=== PATIENT | male | born 1930 | race Caucasian/White ===

== ENCOUNTER 2016-07-12 03:41 | Inpatient (IN) | payer MEDICARE, OTHER ==
[2016-07-12] VITALS (8 sets, daily range): BP systolic 107–134; BP diastolic 55–79; PULSE 70–78; TEMP 36.5–37.1; O2SAT 93–98; BMI 40.7
[~2016-07-12] VITALS: Ht 162.6 cm; Wt 99.5 kg
[2016-07-12] MEDS ORDERED: ASPEC81 PO (03:59)
[2016-07-12] MEDS ORDERED: ALUMINUM/MAGNESIUM/SIMETH (MAALOX MAX) 30 ML UDC PO PRN (04:00)
[2016-07-12] MEDS ORDERED: ONDANSETRON INJ 2 MG/ML 2 ML VIAL IV PRN (04:00)
[2016-07-12] MEDS ORDERED: POLYETHYLENE (MIRALAX) 17 GM PACK PO PRN (04:00)
[2016-07-12] MEDS ORDERED: NITROGLYCERIN 0.4 MG SL PER TAB CHARGE SL PRN (04:00)
[2016-07-12] MEDS ORDERED: SITA50TA3 PO (04:04)
[2016-07-12] MEDS ORDERED: HYDR-4715 PO (04:04)
[2016-07-12] MEDS ORDERED: ALLO300T2 PO (04:04)
[2016-07-12] MEDS ORDERED: FURO-85 PO (04:04)
[2016-07-12] MEDS ORDERED: ERGO1TAB12 PO (04:04)
[2016-07-12] MEDS ORDERED: CLOP1TAB15 PO (04:04)
[2016-07-12] MEDS ORDERED: GLIP10TA9 PO (04:04)
[2016-07-12] MEDS ORDERED: DOCU-94 PO (04:04)
[2016-07-12] MEDS ORDERED: FINA5TAB PO (04:04)
[2016-07-12] MEDS ORDERED: HMLI7525 SC (04:04)
[2016-07-12] MEDS: PATIENT'S HEIGHT AND/OR WEIGHT NEEDED SCH ×4 (04:15→05:45)
[2016-07-12] MEDS: NITROGLYCERIN OINT 2% 1GM PACKET EXT SCH ×4 (04:15→19:40)
--- NOTE | 2016-07-12 04:35 | History and Physical ---
History & Physical Date & Time of Service: Jul 12, 2016 at 04:26 Chief Complaint: Chf Exacerbation, Pleural Effusion On Left Primary Care Physician: Daniel Lima M.D. History of Present Illness Source: patient Mr Brasher is an 85 yo M with history of hypertension, CAD s/p cardiac stents, CKD stage IV, hyperlipidemia, and COPD who presents via [facility] with a 3 day history of shortness of breath and fluid retention. He reports he was recently admitted to the hospital with a left leg cellulitis, which turned out to be gout, and was eventually sent to a rehab hospital after that. He was then discharged 4 days ago home, and lives with his mask former Jennifer. He apparently had a salty diet while at this hospital which he believes contributed to the swelling. He reports that Jennifer noticed his leg swelling worsened,. and he felt he was more short of breath, and his weights were fluctuating according to his scale at home. He usually weighs around 225lbs (102kg). (Currently 107.5 kg). He was transferred to [facility] due to lack of beds at [facility]. At [facility] he received 80mg IV Lasix at 20:34 then 100mg IV Lasix at 23:20 (he takes 120mg PO daily per day). His labs at [facility] showed a WBC of 13.3, Hb 11.2, Glucose 170, Na 130, K 4.0, BUN 84, Cr 2.33 AST 56, ALT 72, gfr 27, INR 1.35 Troponin 0.06. He had a CXR which showed cardiomegaly with diffuse vascular congestion and suspected small left pleural effusion. He reports he sees Dr Nice for Nephrology and Dr Hess for Cardiology. He reports he does NOT want dialysis at all. Past Medical/Surgical History Medical Problems: (1) Cellulitis of left leg (2) CHF (congestive heart failure) (3) CHF exacerbation (4) CKD (chronic kidney disease) (5) COPD (chronic obstructive pulmonary disease) (6) Hyperlipidemia (7) Hypertension (8) Nasal bone fracture (9) Pleural effusion on left (10) STEMI (ST elevation myocardial infarction) Surgical Problems: (1) Hx of heart artery stent (2) Hx of heart surgery (3) Hx of tonsillectomy Family History Irrelevant due to pt age Social History Smoking Status: Former Smoker Alcohol Use: none Marital Status: other (Was for 60+ years, in February ) Housing status: other (lives with Jennifer (Claim Inspector)) Multi-Drug Resistant Organisms History of MDRO: No Allergies Coded Allergies: Amoxicillin (Verified Adverse Reaction, Unknown, NIGHTMARES, 07/12/16) Home Medications Scheduled Allopurinol (Zyloprim), 1 TAB PO DAILY Aspirin (Aspirin EC Low Dose), 81 MG PO DAILY Clopidogrel (Plavix), 75 MG PO DAILY Docusate Sodium (Colace), 1 CAP PO BID Ergocalciferol (Vitamin D2), 50,000 UNITS PO weekly Finasteride (Proscar), 1 TAB PO DAILY Furosemide (Lasix), 3 TAB PO BID Glipizide (Glucotrol), 1 TAB PO BID Hydralazine Hcl (Apresoline), 1 TAB PO TID Insulin Lispro 75/25 (Humalog Mix 75/25), 0 SC BID Isosorbide Mononitrate Ext Rel (Imdur Ext Rel), 120 MG PO QAM Sitagliptin (Januvia), 50 MG PO DAILY Physical Exam General Appearance: WD/WN, no apparent distress Head: normocephalic, atraumatic Eyes: normal inspection ENT: hearing grossly normal Neck: supple, no JVD Respiratory/Chest: chest non-tender, + crackles (bibasilar) Cardiovascular: regular rate, rhythm, no murmur, normal peripheral pulses Abdomen/GI: normal bowel sounds, non tender, soft, + distended Back: no CVA tenderness, no muscle spasm Extremities/Musculoskelatal: no calf tenderness, + pedal edema (bilateral) Neurologic/Psych: alert, normal mood/affect, oriented x 3 Skin: no rash Diagnostics Laboratory Results Results Past 24 Hours Test 07/12/16 04:06 Range/Units Creatine Kinase MB Ratio 0-3.0 Microbiology Results 07/12/16 MRSA DNA Surveillance Screen, Marylou Batch Pending Diagnostic Radiology CXR - per outside record - Cardiomegaly, L pleural effusion EKG Tele: HR 68, frequent PVCs EKG: NSR with PVCs, 71bpm. No ST elevation Impression Assessment and Plan Documented By: Kelvin Fine 85 yo M with CHF, T2DM, CKD - presents with CHF exacerbation CHF exacerbation - will repeat CXR in AM and determine further need for Lasix. Strict I&Os - has Adams already. Salt restricted diet. CKD - Will await further Lasix as above. Trend BMPs T2DM - Hold Metformin, Glipizide, Januvia. BSG AC and HS Hypertension - Hold Imdur for now (relatively hypotensive) Gout - continue allopurinol CAD - Continue aspirin and plavix CODE STATUS: DNR (Has an advance directive) Dispo: Tele VTE: Heparin Resident Physician Supervision Note: I was present with [Name of resident] during the history and exam. I discussed the case with the resident and agree with the findings and plan as documented in the note. Any exceptions or clarifications are listed here Pt seen / examined personally O/E AAOx3 S1,2 reg Crackles at bases NT, NT, BS+ +Edema , no C/C Plan - CHF will cont diuresis with Lasix and we will recheck renal function AM - Pt has stated he does not want dialysis if needed and he cannot be diuresed without further renal impairment - will hold off on nephrology consult. DM - SS CKD - as above CAD - Plavix, Imdur Gout - Hold allopurinol until renal function stable - can start low dose prednisone if needed Level of Care Telemetry Resuscitation Status DO NOT RESUSCITATE VTE Prophylaxis VTE Risk Assessment Done? Y/N: Yes Risk Level: Moderate Resident Tracking Resident Involvement: Resident Care Provided Care Provided: Adult Hospital Medicine
[2016-07-12] MEDS ORDERED: ISOS120T5 PO (04:36)
[2016-07-12 05:32] LABS: BASO % 1.4 %; BASO ABS # 0.14 K/uL (0-0.2); COMPLETE YES; HEMATOCRIT 35.2 % (42-52); IG% 0.5 %; LYMPH ABS # 1.32 K/uL (1.2-3.4); MEAN CELL VOLUME 91.9 fL (80-100); MEAN CORPUSCULAR HEMOGLOBIN 29.5 pg (25-34); MEAN CORPUSCULAR HGB CONC 32.1 g/dl (32-36); MEAN PLATELET VOLUME 10.3 fL (7.4-10.4); MONO % 16.2 %; NEUT % 65.9 %; PLATELET COUNT 243 K/uL (130-400); RED BLOOD COUNT 3.83 M/uL (4.7-6.1); WHITE BLOOD COUNT 10.17 K/uL (4.8-10.8)
[2016-07-12 05:44] LABS: INR 1.1 (0.9-1.1); PROTHROMBIN TIME (PATIENT) 12.2 SECONDS (9.0-12.0)
[2016-07-12 05:51] LABS: BUN/CREATININE RATIO 37.2 (10-20); CALCIUM 8.5 mg/dl (8.5-10.1); CREATININE 2.3 mg/dl (0.60-1.40); POTASSIUM 3.7 mmol/L (3.5-5.1)
[2016-07-12 05:54] LABS: ALB/GLOB RATIO 0.7 (0.9-2); CKMB/CK RATIO 2.3 (0-3.0)
[2016-07-12] MEDS: HEPARIN SOD 5000 UNIT/0.5 ML CARP SQ SCH ×3 (06:35→14:49)
[2016-07-12] MEDS ORDERED: PERFLUTREN LIPID MICROSPHERE (DEFINITY) IV ONE (07:16)
[2016-07-12] MEDS ORDERED: GLUCAGON FOR INJ 1 MG VIAL SQ PRN (08:45)
[2016-07-12] MEDS ORDERED: GLUCOSE 10 TABS/TUBE PO PRN (08:45)
[2016-07-12] MEDS ORDERED: GLUCOSE 40% GEL 15 GM TUBE PO PRN (08:45)
[2016-07-12] MEDS ORDERED: DEXTROSE 50% 50 ML SYR IV PRN (08:45)
[2016-07-12] MEDS ORDERED: ALLOPURINOL 300 MG TAB PO SCH (09:00)
[2016-07-12] MEDS ORDERED: ENOXAPARIN 30 MG/0.3 ML SYR SC SCH (09:00)
[2016-07-12] MEDS: DOCUSATE SODIUM 100 MG CAP PO SCH ×2 (09:03→21:00)
[2016-07-12] MEDS: FINASTERIDE 5 MG TAB PO SCH (09:03)
[2016-07-12] MEDS: CLOPIDOGREL BISULFATE 75 MG TAB PO SCH (09:04)
[2016-07-12] MEDS: HydrALAZINE 10 MG TAB PO SCH ×3 (09:04→21:38)
[2016-07-12] MEDS: ASPIRIN 81 MG ECTAB PO SCH (09:04)
--- NOTE | 2016-07-12 09:08 | Hospitalist Progress Note ---
Hospitalist Progress Note Date of Service Jul 12, 2016. Subjective Pt evaluation today including: conversation w/ patient, physical exam Voiding: lujan catheter in place Objective Vital Signs Date Time Temp Pulse Resp B/P Pulse Ox O2 Delivery O2 Flow Rate FiO2 07/12/16 04:26 36.5 70 26 110/55 98 Nasal Cannula 3.0 Laboratory Results Last 24 Hours Test 07/12/16 05:21 07/12/16 05:22 07/12/16 06:45 White Blood Count 10.17 K/uL Red Blood Count 3.83 M/uL Hemoglobin 11.3 g/dL Hematocrit 35.2 % Mean Corpuscular Volume 91.9 fL Mean Corpuscular Hemoglobin 29.5 pg Mean Corpuscular Hemoglobin Concent 32.1 g/dl Platelet Count 243 K/uL Mean Platelet Volume 10.3 fL Neutrophils (%) (Auto) 65.9 % Lymphocytes (%) (Auto) 13.0 % Monocytes (%) (Auto) 16.2 % Eosinophils (%) (Auto) 3.0 % Basophils (%) (Auto) 1.4 % Neutrophils # (Auto) 6.70 K/uL Lymphocytes # (Auto) 1.32 K/uL Monocytes # (Auto) 1.65 K/uL Eosinophils # (Auto) 0.31 K/uL Basophils # (Auto) 0.14 K/uL RDW Standard Deviation 53.1 fL RDW Coefficient of Variation 16.1 % Immature Granulocyte % (Auto) 0.5 % Immature Granulocyte # (Auto) 0.05 K/uL Prothrombin Time 12.2 SECONDS Prothromb Time International Ratio 1.1 Sodium Level 133 mmol/L Potassium Level 3.7 mmol/L Chloride Level 91 mmol/L Carbon Dioxide Level 31 mmol/L Anion Gap 11.0 mmol/L Blood Urea Nitrogen 86 mg/dl Creatinine 2.30 mg/dl Est Creatinine Clear Calc Drug Dose 25.1 ml/min Estimated GFR () 28.5 Estimated GFR (Non- 24.6 BUN/Creatinine Ratio 37.2 Random Glucose 128 mg/dl Calcium Level 8.5 mg/dl Total Bilirubin 1.0 mg/dl Aspartate Amino Transf (AST/SGOT) 48 U/L Alanine Aminotransferase (ALT/SGPT) 79 U/L Alkaline Phosphatase 157 U/L Total Creatine Kinase 96 U/L Creatine Kinase MB 2.2 ng/ml Creatine Kinase MB Ratio 2.3 Troponin I 0.039 ng/ml Total Protein 7.6 gm/dl Albumin 3.0 gm/dl Globulin 4.6 gm/dl Albumin/Globulin Ratio 0.7 Bedside Glucose 144 mg/dl Assessment and Plan (1) CHF exacerbation Assessment & Plan: 1. Start Lasix 60mg IV BID 2. Check CXR 3. Check TTE (2) Pleural effusion on left Assessment & Plan: 1. Check CXR 2. Lasix (3) COPD (chronic obstructive pulmonary disease) Assessment & Plan: Stable, not in exacerbation (4) Hypertension Assessment & Plan: 1. BP controlled, actually soft 2. Continue to hold nitrate (5) CKD (chronic kidney disease) Assessment & Plan: Consult his wood fence erector, Dr. Nice, for guidance while diuresing. Cr was 1.8 in 05/2016. (6) DM2 (diabetes mellitus, type 2) Assessment & Plan: Start sliding scale coverage (7) Physical deconditioning Assessment & Plan: PT/OT 1. Follow BMPs closely 2. Consider Nephro consult if worsening Continued [facility] stay due to: multiple IV medications needed
--- NOTE | 2016-07-12 09:17 | DIAGNOSTIC IMAGING REPORT ---
CHEST ONE VIEW PORTABLE CLINICAL HISTORY: Congestive heart failure. Pleural effusion. COMPARISON STUDY: No previous studies for comparison. FINDINGS: There are median sternotomy wires and clips from bypass grafting. There is no pneumothorax. There is moderate enlargement of the cardiac silhouette. Diffuse interstitial thickening is noted. There is a small left pleural effusion. There may be a trace right pleural effusion. There are hazy bibasilar opacities. IMPRESSION: 1. Diffuse interstitial thickening suggestive of pulmonary edema. 2. Hazy bibasilar opacities which may reflect atelectasis or less likely pneumonia. Radiographic follow up is recommended. 3. Suspected small bilateral pleural effusions. Electronically signed by: Cristian Mckeon M.D. 07/12/2016 9:14 AM Dictated Date/Time: 07/12/2016 9:13 AM
[2016-07-12] MEDS ORDERED: PHARMACY GLYCEMIC MGMT CONSULT PRN (09:29)
[2016-07-12] MEDS: FUROSEMIDE INJ 60 MG in SYRINGE 0 ML IV SCH ×2 (09:35→21:00)
--- NOTE | 2016-07-12 09:40 | Clinical Documentation Query ---
CLINICAL DOCUMENTATION QUERY Dr. CLAUDIO, In your clinical opinion is this patient being managed for: (once ECHO results are available) ( ) Acute on chronic diastolic CHF ( ) Acute on chronic systolic CHF (x ) Acute on chronic combined systolic and diastolic CHF ( ) Other explanation of clinical findings (Please Explain) ( ) Unable to determine (Please Define) ( ) Need to Discuss ( ) Not Agree The medical record reflects the following clinical findings, treatment, and risk factors. Clinical Indicators:85 yo male transferred to [facility] for dyspnea and fluid retention. [place] CXR showed diffuse vascular congestion and suspected small L pleural effusion. BNP 1260 Treatment: IV lasix, tele monitoring, O2 support, AHA/2gm Na diet, I/O, ECHO results are pending Risk Factors: age, HTN, CKD, CAD, COPD Please clarify and document your clinical opinion in the progress notes and discharge summary. Terms such as "probable", "suspected", "likely", "questionable", "possible", or "still to be ruled out" are acceptable. IF IN AGREEMENT, YOU MUST DOCUMENT ABOVE DIAGNOSTIC STATEMENT IN DAILY PROGRESS NOTES AND DISCHARGE SUMMARY. This document is not part of the patient's record. Thank You, Dahlia Paige, RN [phone]
[2016-07-12] MEDS: NYSTATIN POWDER 15GM BTL EXT SCH (10:03)
[2016-07-12 10:28] LABS: ACT87 HEP C IGG SCREEN** NEG (NEG)
--- NOTE | 2016-07-12 10:46 | ECHOCARDIOGRAM REPORT ---
*NOTICE TO RECEIVING CONSTITUTION PARTY AGENCY This information is strictly Confidential and protected under [place] law. [place] law prohibits you from making any further disclosure of this information unless further disclosure is expressly permitted by the written consent of the person to whom it pertains or is authorized by law. A general authorization for the release of medical or other information is not sufficient for this purpose. Hospital accepts no responsibility if the information is made available to any other person, INCLUDING THE PATIENT. Interpretation Summary * Name: BECKA SINGH Study Date: 07/12/2016 06:48 AM BP: 110/55 mmHg * Patient Location: .MSICU\S\E107\S\1 HR: 70 * : 1930 (M/d/y) Gender: Male Height: 64 in * Age: 85 yrs Ethnicity: [place] Weight: 237 lb * Ordering Physician: Louisa Carrillo * Performed By: Olivia Griffin RDCS * * Reason For Study: Congestive Heart Failure * BSA: 2.1 m2 * The study was technically adequate. * There is no comparison study available. * -- Conclusions -- * Left ventricular systolic function is mildly reduced. * Ejection Fraction = 40-45%. * There is a moderate to large sized posterior, inferior, and lateral wall motion abnormality with severe hypokinesis to akinesis of the segments. * The aortic valve is severely calcified. * Doppler and 2D imaging of the aortic valve are discordant. Moderate aortic stenosis is present. * Moderate aortic regurgitation. * There is mild mitral regurgitation. * There is mild to moderate tricuspid regurgitation. Procedure Details * A complete two-dimensional transthoracic echocardiogram was performed (2D, M-mode, Doppler and color flow Doppler). * The study was technically difficult. * A contrast injection of Definity was performed to improve assessment of LV function. * Contrast was injected into an intravenous site in the right arm. * One vial of Definity ultrasound contrast was diluted in normal saline to a total volume of 10 ml. A total of '2' ml of solution was administered during imaging. * Lot # [id number] of Definity utilized for procedure. * Expiration date 1JUN. * The attending nurse who injected the contrast agent was Nini Rubio RN. Left Ventricle * The left ventricle is normal in size. * There is no thrombus. * Ejection Fraction = 40-45%. * Left ventricular systolic function is mildly reduced. * There is a moderate to large sized posterior, inferior, and lateral wall motion abnormality with severe hypokinesis to akinesis of the segments. Right Ventricle * The right ventricle is normal size. * The right ventricular systolic function is normal as assessed by tricuspid annular plane systolic excursion (TAPSE) (normal >1.5 cm). Atria * The left atrium is mildly dilated. * Right atrial size is normal. * There is no evidence of atrial septal defect, but resolution does not allow assessment for a patent foramen ovale. Mitral Valve * Calcified mitral apparatus. * There is moderate to severe mitral annular calcification. * There is no mitral valve stenosis. * There is mild mitral regurgitation. Tricuspid Valve * The tricuspid valve is not well visualized. * There is no tricuspid stenosis. * There is mild to moderate tricuspid regurgitation. * The estimated systolic PAP is 59mmHg. Aortic Valve * The aortic valve is trileaflet. * The aortic valve is severely calcified. * Doppler and 2D imaging of the aortic valve are discordant. Moderate aortic stenosis is present. * Moderate aortic regurgitation. Pulmonic Valve * The pulmonary valve is not well seen, but the Doppler examination is normal without significant regurgitation or stenosis. Great Vessels * The aortic root and proximal ascending aorta are normal sized. Pericardium/Pleural * There is no pericardial effusion. Great Vessels * Dialted IVC with normal inspiratory collapse suggesting a right atrial pressure of 8mmHg. Left Ventricular Diastolic Function * Diastolic dysfunction, Grade II, consistent with elevated left atrial pressure. MMode 2D Measurements and Calculations IVSd 0.96 cm IVSs 1.4 cm LVIDd 6.2 cm LVIDs 5.6 cm LVPWd 1.1 cm LVPWs 1.6 cm IVS/LVPW 0.91 FS 10.7 % EDV(Teich) 196.0 ml ESV(Teich) 151.4 ml EF(Teich) 22.8 % EDV(cubed) 241.6 ml ESV(cubed) 172.2 ml EF(cubed) 28.7 % % IVS thick 40.2 % % LVPW thick 46.9 % LV mass(C)d 267.7 grams LV mass(C)dI 127.3 grams/m\S\2 LV mass(C)s 364.3 grams LV mass(C)sI 173.3 grams/m\S\2 SV(Teich) 44.6 ml SI(Teich) 21.2 ml/m\S\2 SV(cubed) 69.4 ml SI(cubed) 33.0 ml/m\S\2 EPSS 2.2 cm Ao root diam 3.3 cm Ao root area 8.6 cm\S\2 ACS 1.2 cm LA dimension 4.3 cm LA/Ao 1.3 LVOT diam 2.1 cm LVOT area 3.5 cm\S\2 LVAd ap4 30.1 cm\S\2 LVLd ap4 7.9 cm EDV(MOD-sp4) 103.9 ml EDV(sp4-el) 97.2 ml LVAs ap4 20.9 cm\S\2 LVLs ap4 6.5 cm ESV(MOD-sp4) 60.5 ml ESV(sp4-el) 57.1 ml EF(MOD-sp4) 41.8 % EF(sp4-el) 41.2 % SV(MOD-sp4) 43.4 ml SI(MOD-sp4) 20.6 ml/m\S\2 SV(sp4-el) 40.1 ml SI(sp4-el) 19.1 ml/m\S\2 Doppler Measurements and Calculations MV E max isidoro 143.8 cm/sec MV A max isidoro 91.8 cm/sec MV E/A 1.6 MV V2 max 140.3 cm/sec MV max PG 7.9 mmHg MV V2 mean 66.0 cm/sec MV mean PG 2.1 mmHg MV V2 VTI 68.5 cm MVA(VTI) 1.0 cm\S\2 MV P1/2t max isidoro 141.8 cm/sec MV P1/2t 117.1 msec MVA(P1/2t) 1.9 cm\S\2 MV dec slope 354.7 cm/sec\S\2 MV dec time 0.22 sec Ao V2 max 269.5 cm/sec Ao max PG 29.1 mmHg Ao max PG (full) 26.0 mmHg Ao V2 mean 195.9 cm/sec Ao mean PG 17.0 mmHg Ao mean PG (full) 15.5 mmHg Ao V2 VTI 67.2 cm JOSS(I,A) 1.0 cm\S\2 JOSS(I,D) 1.0 cm\S\2 JOSS(V,A) 1.2 cm\S\2 JOSS(V,D) 1.2 cm\S\2 AI max isidoro 326.9 cm/sec AI max PG 43.4 mmHg AI dec slope 280.1 cm/sec\S\2 AI P1/2t 341.9 msec LV V1 max PG 3.2 mmHg LV V1 mean PG 1.5 mmHg LV V1 max 88.8 cm/sec LV V1 mean 57.6 cm/sec LV V1 VTI 19.7 cm SV(Ao) 578.0 ml SI(Ao) 275.0 ml/m\S\2 SV(LVOT) 68.8 ml SI(LVOT) 32.7 ml/m\S\2 PA V2 max 95.0 cm/sec PA max PG 3.6 mmHg PI max isidoro 149.6 cm/sec PI max PG 9.0 mmHg PI dec slope 78.5 cm/sec\S\2 PI P1/2t 558.5 msec TR max isidoro 340.3 cm/sec
[2016-07-12] MEDS: INSULIN ASPART 100 UNITS/ML 3 ML PEN SC SCH ×3 (13:46→21:40)
[2016-07-12 13:53] LABS: BUN/CREATININE RATIO 36.3 (10-20); CALCIUM 9.2 mg/dl (8.5-10.1); CREATININE 2.3 mg/dl (0.60-1.40); MAGNESIUM 2.9 mg/dl (1.8-2.4); PHOSPHORUS 3.4 mg/dl (2.5-4.9); POTASSIUM 3.5 mmol/L (3.5-5.1)
--- NOTE | 2016-07-12 13:54 | Pharmacy Progress Note ---
Glycemic Control: Progress Nt Date of Service Jul 12, 2016. Scope Glycemic Pharmacist consulted by Dr Evelina Velazquez on 07/12/16 for glycemic control and to write orders per [facility] inpatient glycemic control protocol. Objective Accuchecks BSG (last 24hrs): Test 07/12/16 05:21 07/12/16 06:45 07/12/16 11:07 07/12/16 13:25 Random Glucose 128 mg/dl (70-99) Bedside Glucose 144 mg/dl (70-99) 208 mg/dl (70-99) Laboratory Data (last 24hrs) Test 07/12/16 05:21 07/12/16 13:25 Anion Gap 11.0 mmol/L BUN/Creatinine Ratio 37.2 Blood Urea Nitrogen 86 mg/dl Creatinine 2.30 mg/dl Potassium Level 3.7 mmol/L Sodium Level 133 mmol/L White Blood Count 10.17 K/uL Red Blood Count 3.83 M/uL Hemoglobin 11.3 g/dL Hematocrit 35.2 % Mean Corpuscular Volume 91.9 fL Mean Corpuscular Hemoglobin 29.5 pg Mean Corpuscular Hemoglobin Concent 32.1 g/dl Platelet Count 243 K/uL Mean Platelet Volume 10.3 fL Neutrophils (%) (Auto) 65.9 % Lymphocytes (%) (Auto) 13.0 % Monocytes (%) (Auto) 16.2 % Eosinophils (%) (Auto) 3.0 % Basophils (%) (Auto) 1.4 % Neutrophils # (Auto) 6.70 K/uL Lymphocytes # (Auto) 1.32 K/uL Monocytes # (Auto) 1.65 K/uL Eosinophils # (Auto) 0.31 K/uL Basophils # (Auto) 0.14 K/uL Recent Pertinent Medications Outpatient Anti-diabetic Regimen: * Outpatient regimen is unclear; our current list includes: Glipizide 10mg PO BID, Januvia 50mg daily; Humalog 75/25 unknown dosage * A family member will be bringing an updated list later today * A1c = ? The patient is currently receiving: * Basal insulin: None * Correctional Insulin: Novolog Correction per scale ACHS Goal Range: Low 120 mg/dL - High 150 mg/dL Correction Factor: 20 mg/dL/unit * Prandial insulin: Per carb ratio of 1 unit per 7 grams CHO consumed * Oral Agents: None currently Risk Factors for Insulin Resistance: * Diet: ordered T2DM/AHA/Renal/Low Na+ diet; he did consume ~25% of breakfast and lunch today Assessment & Plan ASSESSMENT: * Type 2 diabetic admitted with ADHF * Level of glycemic control prior to admission unknown - will check A1c tomorrow * Fasting BSG 128-144 this AM with no basal insulin on board, however if he was taking glipizide [employer] this may have kept this value down * Will refrain from ordering basal insulin today; however will follow fasting BSG trend * Current Novolog dosing parameters are reasonable starting points based upon weight PLAN FOR INPATIENT GLYCEMIC CONTROL: * Check A1c with AM labs * Avoid use of oral hypoglycemic meds at this time * No basal insulin at this time * Continuing correction factor of 20 mg/dl/unit * Continuing carb ratio of 1 unit per 7 grams CHO consumed * Continuing goal range of Low 120 mg/dL - High 150 mg/dL * Please note that the plan above was derived based on current level of insulin resistance and hospital stress. These recommendations are appropriate for inpatient admission only. Plan of care upon discharge will need to be reassessed to avoid potential outpatient hypo/hyperglycemia. Thank you.
[2016-07-12] MEDS ORDERED: NURSING VERBAL MED ORDER ONE (15:00)
[2016-07-12] MEDS ORDERED: BOOST GLUCOSE CONTROL PO SCH (16:30)
[2016-07-12] MEDS: ACETAMINOPHEN 325 MG TAB PO PRN (19:50)
[2016-07-12] MEDS ORDERED: FUROSEMIDE 40 MG/4 ML VIAL ONE ×2 (21:29→21:30)
[2016-07-12] MEDS ORDERED: ZOLPIDEM TARTRATE 5 MG TAB PO PRN (21:45)
[2016-07-13] VITALS (8 sets, daily range): BP systolic 116–148; BP diastolic 65–79; PULSE 77–93; TEMP 36.3–36.8; O2SAT 91–99
[2016-07-13] MEDS: NITROGLYCERIN OINT 2% 1GM PACKET EXT SCH ×5 (00:42→23:41)
[2016-07-13 06:49] LABS: BUN/CREATININE RATIO 36.6 (10-20); CALCIUM 8.7 mg/dl (8.5-10.1); POTASSIUM 3.4 mmol/L (3.5-5.1)
[2016-07-13 07:15] LABS: ESTIMATED AVERAGE GLUCOSE 171 mg/dl; HA1C FLAG Normal (Normal)
--- NOTE | 2016-07-13 08:16 | Hospitalist Progress Note ---
Hospitalist Progress Note Date of Service Jul 13, 2016. Subjective Pt evaluation today including: conversation w/ patient, physical exam Had some hematuria yesterday. He has no new complaints. Says his breathing is better, "but still not as good as it could be." Medications Medications (Trade) Dose Ordered Sig/Vijay Route Start Time Stop Time Status Last Admin Dose Admin Aspirin (Ecotrin Tab) 81 mg DAILY PO 07/12/16 09:00 08/11/16 08:59 07/12/16 09:04 81 MG Clopidogrel Bisulfate (plAVix TAB) 75 mg DAILY PO 07/12/16 09:00 08/11/16 08:59 07/12/16 09:04 75 MG Docusate Sodium (coLACE CAP) 100 mg BID PO 07/12/16 09:00 08/11/16 08:59 07/12/16 09:03 100 MG Finasteride (Proscar Tab) 5 mg DAILY PO 07/12/16 09:00 08/11/16 08:59 07/12/16 09:03 5 MG Hydralazine HCl 10 mg 10 mg TID PO 07/12/16 09:00 08/11/16 08:59 07/12/16 21:38 10 MG Furosemide/Syringe (Lasix Inj/ Syringe) 6 ml @ 4 mls/min BID IV 07/12/16 09:00 08/11/16 08:59 07/12/16 09:35 4 MLS/MIN Insulin Aspart (novoLOG ASPART) SLIDING SCALE If C... ACHS SC 07/12/16 11:00 08/11/16 10:59 07/12/16 21:40 2 UNITS Nystatin (Mycostatin Powder) 1 appln DAILY EXT 07/13/16 09:00 08/12/16 08:59 07/12/16 10:03 1 APPLN Enteral Nutritional Formula (Boost Glucose Control) 0.5 can TIDM PO 07/12/16 16:30 07/13/16 07:02 DC 07/12/16 16:46 0.5 CAN Furosemide (Lasix Inj) 40 mg STK-MED ONCE .ROUTE 07/12/16 21:29 07/12/16 21:31 DC 07/12/16 21:29 20 MG Furosemide (Lasix Inj) 40 mg STK-MED ONCE .ROUTE 07/12/16 21:30 07/12/16 21:32 DC 07/12/16 21:30 40 MG Objective Vital Signs Date Time Temp Pulse Resp B/P Pulse Ox O2 Delivery O2 Flow Rate FiO2 07/13/16 04:00 93 Nasal Cannula 3.0 07/13/16 04:00 36.8 81 24 118/65 93 Nasal Cannula 4.0 07/12/16 23:59 93 Nasal Cannula 3.0 07/12/16 23:59 37.1 78 24 127/71 93 Nasal Cannula 3.0 07/12/16 20:00 CPAP 07/12/16 20:00 37.1 75 24 107/59 95 Nasal Cannula 3.0 07/12/16 17:30 36.9 77 24 132/72 94 Nasal Cannula 3.0 07/12/16 15:02 94 Nasal Cannula 3.0 07/12/16 15:02 36.7 75 24 134/79 94 Nasal Cannula 3.0 07/12/16 11:49 36.7 76 23 134/79 93 Nasal Cannula 3.0 07/12/16 11:08 95 Nasal Cannula 3.0 07/12/16 08:00 36.6 75 21 111/63 98 Nasal Cannula 4.0 07/12/16 08:00 98 Nasal Cannula 4.0 Physical Exam General Appearance: no apparent distress Eyes: sclerae normal Respiratory/Chest: + crackles, + pertinent finding (becomes visibily dyspneic with speaking a few sentences) Cardiovascular: regular rate, rhythm Abdomen: non tender, soft Extremities: + pedal edema Neurologic/Psychiatric: alert, oriented x 3 Skin: normal color, warm/dry Laboratory Results Last 24 Hours Test 07/12/16 11:07 07/12/16 13:25 07/12/16 16:13 07/12/16 20:23 Bedside Glucose 208 mg/dl 200 mg/dl 179 mg/dl Sodium Level 131 mmol/L Potassium Level 3.5 mmol/L Chloride Level 90 mmol/L Carbon Dioxide Level 30 mmol/L Anion Gap 11.0 mmol/L Blood Urea Nitrogen 84 mg/dl Creatinine 2.30 mg/dl Est Creatinine Clear Calc Drug Dose 25.1 ml/min Estimated GFR () 28.5 Estimated GFR (Non- 24.6 BUN/Creatinine Ratio 36.3 Random Glucose 219 mg/dl Calcium Level 9.2 mg/dl Phosphorus Level 3.4 mg/dl Magnesium Level 2.9 mg/dl Test 07/13/16 05:50 07/13/16 05:51 Bedside Glucose 189 mg/dl Sodium Level 132 mmol/L Potassium Level 3.4 mmol/L Chloride Level 91 mmol/L Carbon Dioxide Level 32 mmol/L Anion Gap 9.0 mmol/L Blood Urea Nitrogen 73 mg/dl Creatinine 2.00 mg/dl Est Creatinine Clear Calc Drug Dose 28.9 ml/min Estimated GFR () 33.8 Estimated GFR (Non- 29.1 BUN/Creatinine Ratio 36.6 Random Glucose 178 mg/dl Estimated Average Glucose 171 mg/dl Hemoglobin A1c 7.6 % Calcium Level 8.7 mg/dl Diagnostic Results Echocardiogram: Interpretation Summary * Name: BECKA SINGH Study Date: 07/12/2016 06:48 AM BP: 110/55 mmHg * Patient [place] [facility] [place]S\\1 HR: 70 * : 1930 (M/d/yyyy) Gender: Male Height: 64 in * Age: 85 yrs Ethnicity: [place] Weight: 237 lb * Ordering Physician: Louisa Carrillo * Performed By: Olivia Griffin RDCS * * Reason For Study: Congestive Heart Failure * BSA: 2.1 m2 * The study was technically adequate. * There is no comparison study available. * -- Conclusions -- * Left ventricular systolic function is mildly reduced. * Ejection Fraction = 40-45%. * There is a moderate to large sized posterior, inferior, and lateral wall motion abnormality with severe hypokinesis to akinesis of the segments. * The aortic valve is severely calcified. * Doppler and 2D imaging of the aortic valve are discordant. Moderate aortic stenosis is present. * Moderate aortic regurgitation. * There is mild mitral regurgitation. * There is mild to moderate tricuspid regurgitation. CHEST ONE VIEW PORTABLE CLINICAL HISTORY: Congestive heart failure. Pleural effusion. COMPARISON STUDY: No previous studies for comparison. FINDINGS: There are median sternotomy wires and clips from bypass grafting. There is no pneumothorax. There is moderate enlargement of the cardiac silhouette. Diffuse interstitial thickening is noted. There is a small left pleural effusion. There may be a trace right pleural effusion. There are hazy bibasilar opacities. IMPRESSION: 1. Diffuse interstitial thickening suggestive of pulmonary edema. 2. Hazy bibasilar opacities which may reflect atelectasis or less likely pneumonia. Radiographic follow up is recommended. 3. Suspected small bilateral pleural effusions. Assessment and Plan (1) Systolic and diastolic CHF, acute on chronic Assessment & Plan: Slowly improving. Continue with diuretics. Titrate down oxygen as possible (2) Pleural effusion on left Assessment & Plan: Still with small effusions bilaterally on repeat CXR here. Symptoms are improving. No indication for thoracentesis at this time (3) COPD (chronic obstructive pulmonary disease) Assessment & Plan: Stable, not in exacerbation (4) Hypertension Assessment & Plan: 1. BP controlled but actually soft 2. Continue to hold home nitrate (5) CKD (chronic kidney disease) Assessment & Plan: Cr actually decreased. Await further input from Nephro (6) DM2 (diabetes mellitus, type 2) Assessment & Plan: Well controlled with sliding scale. Will continue (7) Physical deconditioning Assessment & Plan: PT/OT Continued [facility] stay due to: multiple IV medications needed Discharge planning: home with home health
--- NOTE | 2016-07-13 08:56 | NEPHROLOGY CONSULTATION ---
DATE OF CONSULTATION: 07/13/2016 ATTENDING OF RECORD: Dr. Velazquez. REASON FOR CONSULT: CKD. HISTORY OF PRESENT ILLNESS: The patient was last seen in my [facility] clinic in July of last year with CKD stage IV with a creatinine of 2.1 with no proteinuria from advanced age and hypertension, has had no tobacco, no NSAIDs and no myeloma. Has had hypertension since 1982, which is well controlled. Does have aortic stenosis with chronic swelling of the legs with a history of a triple bypass in 1982 as well as stenting x2. Does get shortness of breath with exertion with intermittent chest pain. Has hearing aid to help with his hearing and is also a diabetic, diagnosed within the past year. 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 The patient transferred from [facility] to [facility] for further care. The patient was given aggressive IV diuretics. Chest x-ray showed vascular congestion as well as a left pleural effusion. Creatinine was 2.3 on admission, which is close to his baseline and is 2 this morning. Urine output was 1750 mL yesterday and is already 950 mL this morning, so diuresing nicely on Lasix 60 mg IV b.i.d. The patient noted to have hematuria in his Lujan catheter starting yesterday afternoon but hematuria has improved this morning. PAST MEDICAL HISTORY: CKD stage IV, he does not want dialysis; COPD, history of CHF, coronary artery disease with history of a triple bypass as well as stenting, hypertension, hyperlipidemia. PAST SURGICAL HISTORY: Tonsillectomy, triple bypass as well as 2 stents. FAMILY HISTORY: No renal disease in family. SOCIAL HISTORY: Former smoker. No alcohol, no drugs. recently this past fall. HOME MEDICATIONS: Significant for Lasix 3 tablets twice a day. CURRENT MEDICATIONS: Nystatin daily, Boost a half can 3 times a day with meals, insulin, aspirin 81 mg daily, Plavix 75 mg daily, Colace 100 mg p.o. b.i.d., Proscar 5 mg daily, hydralazine 10 mg p.o. t.i.d., Lasix 60 mg IV b.i.d. REVIEW OF SYSTEMS: The patient with fatigue, shortness of breath, swelling. No cough, no fevers or chills. No rash or itching. Does get intermittent chest pain at baseline. No nausea or vomiting. No diarrhea or constipation. All other review of systems is otherwise negative. PHYSICAL EXAMINATION: VITAL SIGNS: Temperature 36.8, pulse 81, respiratory rate is 24, blood pressure is 118/65, satting 93% on 4 liters. GENERAL: Awake, alert, oriented x3, obese. EYES: No scleral icterus. NECK: Supple. PULMONARY: Basilar rales. CARDIAC: Distant heart sounds, regular rate and rhythm. ABDOMEN: Bowel sounds positive, soft, nontender. EXTREMITIES: +2 edema. NEUROLOGICALLY: Nonfocal. DERM: No rash or ulcers noted. : +lujan with clear urine LABORATORIES: Sodium level is 132, potassium is 3.4, chloride is 91, bicarbonate is 32, BUN 73, creatinine is 2. Hemoglobin A1c 7.6, calcium is 8.7. Mag was elevated yesterday at 2.9. White count is 10, H\T\H 11 and 35, platelet count is 243. INR is 1.1. Hepatitis negative. Chest x-ray from yesterday showed diffuse interstitial thickening suggestive of pulmonary edema, easy bibasilar opacities which may reflect atelectasis, as well as small bilateral pleural effusions. IMPRESSION: 1. Chronic kidney disease stage 4 with a creatinine in the low 2's, which is his baseline. The patient does not want dialysis and has a good understanding of his options. I will respect his wishes and will not administer dialysis. Currently no indication at this time. I agree with the plan of appropriate diuresis and the patient is diuresing nicely and creatinine is remaining stable. Would continue the current diuretics to help improve the volume overload which may help with his shortness of breath and swelling. 2. Hypokalemia. Potassium level is low at 3.4, likely secondary to diuresis. We will replete with 40 mEq of IV potassium today. 3. Hypermagnesemia. Magnesium levels were elevated on admission. Perhaps patient was taking medication with magnesium in it. However, currently not on any magnesium products and should improve as we continue to hold the magnesium. Appreciate consultation. CECILY
[2016-07-13] MEDS ORDERED: POTASSIUM CHLORIDE 20 MEQ TABCR PO ONE (09:00)
[2016-07-13] MEDS ORDERED: INSULIN GLARGINE SOLOSTAR 100 UNITS/ML 3 ML PEN SC ONE (09:00)
[2016-07-13] MEDS: POTASSIUM CHLR 10 MEQ / WTR 10 MEQ in PREMIXED WATER 100 ML IV SCH ×4 (09:10→12:25)
[2016-07-13] MEDS: ASPIRIN 81 MG ECTAB PO SCH (09:11)
[2016-07-13] MEDS: HydrALAZINE 10 MG TAB PO SCH ×3 (09:11→20:34)
[2016-07-13] MEDS: DOCUSATE SODIUM 100 MG CAP PO SCH ×2 (09:11→20:34)
[2016-07-13] MEDS: FINASTERIDE 5 MG TAB PO SCH (09:12)
[2016-07-13] MEDS: CLOPIDOGREL BISULFATE 75 MG TAB PO SCH (09:12)
[2016-07-13] MEDS: BOOST GLUCOSE CONTROL PO SCH ×3 (09:19→17:23)
[2016-07-13] MEDS: INSULIN ASPART 100 UNITS/ML 3 ML PEN SC SCH ×4 (09:30→20:35)
[2016-07-13] MEDS: FUROSEMIDE INJ 60 MG in SYRINGE 0 ML IV SCH ×2 (09:34→20:34)
--- NOTE | 2016-07-13 13:13 | Pharmacy Progress Note ---
Glycemic Control: Progress Nt Date of Service Jul 13, 2016. Scope Glycemic Pharmacist consulted by Dr Evelina Velazquez on 07/12/16 for glycemic control and to write orders per [facility] inpatient glycemic control protocol. Objective Accuchecks BSG (last 24hrs): Test 07/12/16 13:25 07/12/16 16:13 07/12/16 20:23 07/13/16 05:50 Random Glucose 219 mg/dl (70-99) Bedside Glucose 200 mg/dl (70-99) 179 mg/dl (70-99) 189 mg/dl (70-99) Test 07/13/16 05:51 07/13/16 11:48 Random Glucose 178 mg/dl (70-99) Bedside Glucose 217 mg/dl (70-99) Laboratory Data (last 24hrs) Test 07/12/16 13:25 07/13/16 05:51 Anion Gap 11.0 mmol/L 9.0 mmol/L BUN/Creatinine Ratio 36.3 36.6 Blood Urea Nitrogen 84 mg/dl 73 mg/dl Creatinine 2.30 mg/dl 2.00 mg/dl Potassium Level 3.5 mmol/L 3.4 mmol/L Sodium Level 131 mmol/L 132 mmol/L Hemoglobin A1c 7.6 % HbA1c: Test 07/13/16 05:51 Hemoglobin A1c 7.6 % (4.5-5.6) H Recent Pertinent Medications Outpatient Anti-diabetic Regimen: * Outpatient regimen is unclear; our current list includes: Glipizide 10mg PO BID, Januvia 50mg daily; Humalog 75/25 unknown dosage * A family member will be bringing an updated list later today * A1c = 7.6 07/13/16 The patient is currently receiving: * Basal insulin: None * Correctional Insulin: Novolog Correction per scale ACHS Goal Range: Low 120 mg/dL - High 150 mg/dL Correction Factor: 20 mg/dL/unit * Prandial insulin: Per carb ratio of 1 unit per 7 grams CHO consumed * Oral Agents: None currently Risk Factors for Insulin Resistance: * Diet: ordered T2DM/AHA/mech soft diet; he is also ordered Boost Glucose Control Supplements w/ meals (10gm each). 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 Current pattern suggests basal insulin deficiency, PLAN FOR INPATIENT GLYCEMIC CONTROL: * Add Lantus 10 units SQ BID * Continuing correction factor of 20 mg/dl/unit * Continuing carb ratio of 1 unit per 7 grams CHO consumed * Continuing goal range of Low 120 mg/dL - High 150 mg/dL * Please note that the plan above was derived based on current level of insulin resistance and hospital stress. These recommendations are appropriate for inpatient admission only. Plan of care upon discharge will need to be reassessed to avoid potential outpatient hypo/hyperglycemia. Thank you.
[2016-07-13] MEDS: ACETAMINOPHEN 325 MG TAB PO PRN (20:34)
[2016-07-13] MEDS: INSULIN GLARGINE SOLOSTAR 100 UNITS/ML 3 ML PEN SC SCH (20:35)
[2016-07-14] VITALS (8 sets, daily range): BP systolic 136–161; BP diastolic 65–91; PULSE 86–103; TEMP 36.5–36.7; O2SAT 93–95
[2016-07-14] MEDS: NITROGLYCERIN OINT 2% 1GM PACKET EXT SCH ×4 (06:14→23:33)
[2016-07-14 06:40] LABS: BUN/CREATININE RATIO 32.2 (10-20); CALCIUM 9.2 mg/dl (8.5-10.1); CREATININE 1.7 mg/dl (0.60-1.40); POTASSIUM 3.8 mmol/L (3.5-5.1)
[2016-07-14] MEDS: BOOST GLUCOSE CONTROL PO SCH ×3 (08:00→17:00)
[2016-07-14] MEDS: NYSTATIN POWDER 15GM BTL EXT SCH (08:40)
[2016-07-14] MEDS: HydrALAZINE 10 MG TAB PO SCH ×3 (08:43→20:55)
[2016-07-14] MEDS: FINASTERIDE 5 MG TAB PO SCH (08:43)
[2016-07-14] MEDS: DOCUSATE SODIUM 100 MG CAP PO SCH ×2 (08:43→20:55)
[2016-07-14] MEDS: ASPIRIN 81 MG ECTAB PO SCH (08:43)
[2016-07-14] MEDS: CLOPIDOGREL BISULFATE 75 MG TAB PO SCH (08:43)
[2016-07-14] MEDS: FUROSEMIDE INJ 60 MG in SYRINGE 0 ML IV SCH ×2 (08:43→20:55)
[2016-07-14] MEDS: INSULIN ASPART 100 UNITS/ML 3 ML PEN SC SCH ×4 (09:28→21:06)
[2016-07-14] MEDS: INSULIN GLARGINE SOLOSTAR 100 UNITS/ML 3 ML PEN SC SCH ×2 (09:29→20:57)
--- NOTE | 2016-07-14 10:47 | Hospitalist Progress Note ---
Hospitalist Progress Note Date of Service Jul 14, 2016. Subjective Pt evaluation today including: conversation w/ patient, conversation w/ family , physical exam, chart review, lab review, review of inpatient medication list Pain: denies. Patient says his breathing feels better today. His son notes that when he moves around in bed, he seems to become a bit labored. Medications Medications (Trade) Dose Ordered Sig/Vijay Route Start Time Stop Time Status Last Admin Dose Admin Insulin Glargine (Lantus Solostar Pen) 10 unit BID SC 07/13/16 21:00 08/12/16 20:59 07/14/16 09:29 10 UNIT Objective Vital Signs Date Time Temp Pulse Resp B/P Pulse Ox O2 Delivery O2 Flow Rate FiO2 07/14/16 07:47 36.6 88 20 152/75 95 CPAP 07/14/16 06:15 89 137/65 07/14/16 00:00 CPAP 3.0 07/13/16 23:59 36.3 77 18 116/72 91 Room Air 07/13/16 23:57 36.7 81 20 134/77 95 4.0 07/13/16 23:40 80 133/79 07/13/16 19:15 Nasal Cannula 3.0 CPAP 07/13/16 16:08 36.7 93 18 145/71 99 Nasal Cannula 4.0 07/13/16 16:00 Nasal Cannula 3.0 07/13/16 13:38 88 143/71 07/13/16 10:54 36.5 93 22 148/74 92 Nasal Cannula 4.0 Physical Exam General Appearance: no apparent distress Eyes: sclerae normal Respiratory/Chest: + pertinent finding (few crackles in bases, otherwise clear. not in distress) Cardiovascular: regular rate, rhythm Abdomen: non tender, soft Extremities: + pertinent finding (2+ edema in bilateral lower extremities) Neurologic/Psychiatric: alert, oriented x 3 Skin: warm/dry Laboratory Results Last 24 Hours Test 07/13/16 11:48 07/14/16 05:39 Bedside Glucose 217 mg/dl Sodium Level 133 mmol/L Potassium Level 3.8 mmol/L Chloride Level 93 mmol/L Carbon Dioxide Level 31 mmol/L Anion Gap 9.0 mmol/L Blood Urea Nitrogen 55 mg/dl Creatinine 1.70 mg/dl Est Creatinine Clear Calc Drug Dose 34.0 ml/min Estimated GFR () 41.1 Estimated GFR (Non- 35.5 BUN/Creatinine Ratio 32.2 Random Glucose 132 mg/dl Calcium Level 9.2 mg/dl Assessment and Plan (1) Systolic and diastolic CHF, acute on chronic Assessment & Plan: Continues to improve slowly. Continue with diuretics. Titrate down oxygen as possible. (2) Pleural effusion on left Assessment & Plan: Clinically improved with diuresis. Much better air entry in the left base on exam today. (3) COPD (chronic obstructive pulmonary disease) Assessment & Plan: Stable, not in exacerbation (4) Hypertension Assessment & Plan: BP elevated this AM. Will resume home nitrate. (5) CKD (chronic kidney disease) Assessment & Plan: Cr decreased further despite diuretics. Nephro following (6) DM2 (diabetes mellitus, type 2) Assessment & Plan: Well controlled with sliding scale. Will continue (7) Physical deconditioning Assessment & Plan: PT/OT Discharge planning: other (son inquiring about [facility])
--- NOTE | 2016-07-14 11:00 | Pharmacy Progress Note ---
Glycemic Control: Progress Nt Date of Service Jul 14, 2016. Scope Glycemic Pharmacist consulted by Dr Evelina Velazquez on 07/12/16 for glycemic control and to write orders per [facility] inpatient glycemic control protocol. Objective Accuchecks BSG (last 24hrs): Test 07/13/16 11:48 07/14/16 05:39 Bedside Glucose 217 mg/dl (70-99) Random Glucose 132 mg/dl (70-99) missing BSG checks: * 07/13 prelunch: 217 * 07/13 predinner: 179 * 07/13 HS: 240 Laboratory Data (last 24hrs) Test 07/14/16 05:39 Anion Gap 9.0 mmol/L BUN/Creatinine Ratio 32.2 Blood Urea Nitrogen 55 mg/dl Creatinine 1.70 mg/dl Potassium Level 3.8 mmol/L Sodium Level 133 mmol/L HbA1c: Test 07/13/16 05:51 Hemoglobin A1c 7.6 % (4.5-5.6) H Recent Pertinent Medications Outpatient Anti-diabetic Regimen: * Outpatient regimen is unclear; our current list includes: Glipizide 10mg PO BID, Januvia 50mg daily; Humalog 75/25 unknown dosage * A1c = 7.6 07/13/16 The patient is currently receiving: * Basal insulin: Lantus 10 units SQ BID - hold if BSG less than 120 * Correctional Insulin: Novolog Correction per scale ACHS Goal Range: Low 120 mg/dL - High 150 mg/dL Correction Factor: 20 mg/dL/unit * Prandial insulin: Per carb ratio of 1 unit per 7 grams CHO consumed * Oral Agents: None currently Risk Factors for Insulin Resistance: * Diet: ordered T2DM/AHA/mech soft diet; he is also ordered Boost Glucose Control Supplements w/ meals (10gm each). 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 Current pattern suggests basal insulin deficiency 07/14/16 * BSGs still higher than goal, however fasting BSG has improved today * Fasting BSG 132-161 with 20 units of Lantus on board; there may further improvement with repeat dosing - will continue * Perhaps starting the day with a lower fasting BSG will lead to improved control * Will adjust the Novolog prandial dose slightly as post-prandial hyperglycemia did not improve much yesterday - however Boost supplements sipped between meals can affect accuracy of BSGs - I'm hesitant to make a large change PLAN FOR INPATIENT GLYCEMIC CONTROL: * Continue Lantus 10 units SQ BID - hold if BSG less than 120 * Continuing correction factor of 20 mg/dl/unit * Changing carb ratio to 1 unit per 6 grams CHO consumed * Changing goal range to Low 110 mg/dL - High 140 mg/dL * Please note that the plan above was derived based on current level of insulin resistance and hospital stress. These recommendations are appropriate for inpatient admission only. Plan of care upon discharge will need to be reassessed to avoid potential outpatient hypo/hyperglycemia. Thank you.
[2016-07-14] MEDS: POLYETHYLENE (MIRALAX) 17 GM PACK PO PRN (11:23)
--- NOTE | 2016-07-14 21:43 | Nephrology Progress Note ---
Nephrology Progress Note Date of Service: Jul 14, 2016. Subjective 85 yo male with chf and ckd stage 4 who does not want dialysis. pt tolerating the diuretics well. caregiver has noticed that he is developing a diffuse rash. also when pt was oob to chair, pt had pain in the left foot and had recent history of gout flare up last month while in the hospital. family concerned about gout. pt though able to tolerate touching the foot and having a sheet on it. not exquisitely tender. Objective Date Time Temp Pulse Resp B/P Pulse Ox O2 Delivery O2 Flow Rate FiO2 07/14/16 20:00 Nasal Cannula 3.0 CPAP 07/14/16 18:00 95 CPAP 07/14/16 16:02 36.7 86 16 161/88 95 Nasal Cannula 3.0 07/14/16 14:17 98 136/77 07/14/16 12:00 36.6 103 20 150/80 93 Nasal Cannula 3.0 07/14/16 08:00 95 CPAP 07/14/16 07:47 36.6 88 20 152/75 95 CPAP 07/14/16 06:15 89 137/65 07/14/16 00:00 CPAP 3.0 07/13/16 23:59 36.3 77 18 116/72 91 Room Air 07/13/16 23:57 36.7 81 20 134/77 95 4.0 07/13/16 23:40 80 133/79 Physical Exam: General-aaox3, obese Eyes-no scleral icterus ENT-mmm Neck-supple Lungs-decreased at bases Heart-rrr Abdomen-bs+ s/nt/nd Extremities-+2 edema Neuro-nonfocal Current Inpatient Medications Medications (Trade) Dose Ordered Sig/Vijay Route Start Time Stop Time Status Last Admin Dose Admin Acetaminophen (Tylenol Tab) 650 mg Q4H PRN PO 07/12/16 04:00 08/11/16 03:59 07/13/16 20:34 650 MG Al Hydrox/Mg Hydrox/Simethicone (Maalox Max Susp) 15 ml Q4H PRN PO 07/12/16 04:00 08/11/16 03:59 Magnesium Hydroxide (Milk Of Magnesia Susp) 30 ml Q12H PRN PO 07/12/16 04:00 08/11/16 03:59 Ondansetron HCl (Zofran Inj) 4 mg Q6H PRN IV 07/12/16 04:00 08/11/16 03:59 Nitroglycerin (Nitrostat Tab) 0.4 mg UD PRN SL 07/12/16 04:00 08/11/16 03:59 Nitroglycerin (Nitroglycerin 2% Oint) 1 inch Q6 EXT 07/12/16 04:15 08/11/16 04:14 07/14/16 17:39 1 INCH Aspirin (Ecotrin Tab) 81 mg DAILY PO 07/12/16 09:00 08/11/16 08:59 07/14/16 08:43 81 MG Clopidogrel Bisulfate (plAVix TAB) 75 mg DAILY PO 07/12/16 09:00 08/11/16 08:59 07/14/16 08:43 75 MG Docusate Sodium (coLACE CAP) 100 mg BID PO 07/12/16 09:00 08/11/16 08:59 07/14/16 20:55 100 MG Finasteride (Proscar Tab) 5 mg DAILY PO 07/12/16 09:00 08/11/16 08:59 07/14/16 08:43 5 MG Hydralazine HCl 10 mg 10 mg TID PO 07/12/16 09:00 08/11/16 08:59 07/14/16 20:55 10 MG Furosemide/Syringe (Lasix Inj/ Syringe) 6 ml @ 4 mls/min BID IV 07/12/16 09:00 08/11/16 08:59 07/14/16 20:55 4 MLS/MIN Insulin Aspart (novoLOG ASPART) SLIDING SCALE If C... ACHS SC 07/12/16 11:00 08/11/16 10:59 07/14/16 21:06 3 UNITS Glucose (Glucose 40% Gel) 15-30 GRAMS 15 GRAMS... UD PRN PO 07/12/16 08:45 08/11/16 08:44 Glucose (Glucose Chew Tab) 4-8 Tablets 4 Tabl... UD PRN PO 07/12/16 08:45 08/11/16 08:44 Dextrose (Dextrose 50% 50ML Syringe) 25-50ML OF 50% DW IV FOR... UD PRN IV 07/12/16 08:45 08/11/16 08:44 Glucagon (Glucagon Inj) 1 mg UD PRN SQ 07/12/16 08:45 08/11/16 08:44 Miscellaneous Information (Consult Glycemic Management Pharmacy) 1 ea UD PRN N/A 07/12/16 09:29 08/11/16 09:28 Polyethylene (Miralax Powder Packet) 17 gm DAILY PRN PO 07/12/16 09:15 08/11/16 09:14 07/14/16 11:23 17 GM Nystatin (Mycostatin Powder) 1 appln DAILY EXT 07/13/16 09:00 08/12/16 08:59 07/14/16 08:40 1 APPLN Zolpidem Tartrate (Ambien Tab) 2.5 mg HS PRN PO 07/12/16 21:45 08/11/16 21:44 Enteral Nutritional Formula (Boost Glucose Control) 0.5 can TIDM PO 07/13/16 07:15 08/12/16 07:14 07/14/16 17:00 0.5 CAN Insulin Glargine (Lantus Solostar Pen) 10 unit BID SC 07/13/16 21:00 08/12/16 20:59 07/14/16 20:57 10 UNIT Isosorbide Mononitrate (Imdur Ext Rel Tab) 120 mg QAM PO 07/15/16 09:00 08/14/16 08:59 Last 24 Hours Test 07/14/16 05:39 07/14/16 07:28 07/14/16 12:04 07/14/16 16:22 Sodium Level 133 mmol/L Potassium Level 3.8 mmol/L Chloride Level 93 mmol/L Carbon Dioxide Level 31 mmol/L Anion Gap 9.0 mmol/L Blood Urea Nitrogen 55 mg/dl Creatinine 1.70 mg/dl Est Creatinine Clear Calc Drug Dose 34.0 ml/min Estimated GFR () 41.1 Estimated GFR (Non- 35.5 BUN/Creatinine Ratio 32.2 Random Glucose 132 mg/dl Calcium Level 9.2 mg/dl Bedside Glucose 161 mg/dl 241 mg/dl 167 mg/dl Test 07/14/16 20:37 Bedside Glucose 194 mg/dl Assessment & Plan CKD stage 4-despite aggressive diuretics with lasix 60 iv bid, creatinine has actually improved and not worsened. continue current diuretics. pt appears to be clinically improving. Derm-diffuse rash on body, spoke to nurse. nurse to monitor and if worsens, consider giving benadryl. unclear why he would be having allergic reaction now. did have a bath today and may have had reaction to the lotion. monitoring. Hypokalemia-k was 3.4 and has improved to 3.8. continue to follow electrolytes. hematuria-likely secondary to trauma and has cleared. urinating well.
[2016-07-15 00:20] VITALS: O2SAT 93
[2016-07-15] MEDS: NITROGLYCERIN OINT 2% 1GM PACKET EXT SCH ×3 (05:44→18:38)
[2016-07-15 06:09] LABS: BASO % 0.9 %; BASO ABS # 0.08 K/uL (0-0.2); COMPLETE YES; EOS % 5.4 %; HEMATOCRIT 35.7 % (42-52); IG% 1.2 %; LYMPH % 14.7 %; LYMPH ABS # 1.32 K/uL (1.2-3.4); MEAN CORPUSCULAR HEMOGLOBIN 29.4 pg (25-34); MEAN CORPUSCULAR HGB CONC 31.9 g/dl (32-36); MEAN PLATELET VOLUME 9.8 fL (7.4-10.4); MONO % 13.1 %; NEUT % 64.7 %; PLATELET COUNT 323 K/uL (130-400); RED BLOOD COUNT 3.88 M/uL (4.7-6.1); WHITE BLOOD COUNT 8.96 K/uL (4.8-10.8)
[2016-07-15 06:47] LABS: BUN/CREATININE RATIO 30.6 (10-20); CREATININE 1.6 mg/dl (0.60-1.40); MAGNESIUM 2.4 mg/dl (1.8-2.4); POTASSIUM 3.8 mmol/L (3.5-5.1); URIC ACID 4.3 mg/dl (2.6-7.2)
[2016-07-15 07:52] VITALS: BP 161/91; PULSE 103; TEMP 37; O2SAT 95
[2016-07-15] MEDS: BOOST GLUCOSE CONTROL PO SCH ×3 (08:58→18:37)
[2016-07-15] MEDS: NYSTATIN POWDER 15GM BTL EXT SCH (08:59)
[2016-07-15] MEDS: HydrALAZINE 10 MG TAB PO SCH ×3 (08:59→21:04)
[2016-07-15] MEDS: DOCUSATE SODIUM 100 MG CAP PO SCH ×2 (09:00→21:04)
[2016-07-15] MEDS: FINASTERIDE 5 MG TAB PO SCH (09:00)
[2016-07-15] MEDS: CLOPIDOGREL BISULFATE 75 MG TAB PO SCH (09:00)
[2016-07-15] MEDS: ISOSORBIDE MONONITRATE 60 MG TABCR PO SCH (09:00)
[2016-07-15] MEDS: ASPIRIN 81 MG ECTAB PO SCH (09:00)
[2016-07-15] MEDS: INSULIN GLARGINE SOLOSTAR 100 UNITS/ML 3 ML PEN SC SCH ×2 (09:05→21:09)
[2016-07-15] MEDS: INSULIN ASPART 100 UNITS/ML 3 ML PEN SC SCH ×4 (09:05→21:08)
[2016-07-15] MEDS ORDERED: LORATADINE 10 MG TAB PO ONE (09:45)
--- NOTE | 2016-07-15 09:49 | Hospitalist Progress Note ---
Hospitalist Progress Note Date of Service Jul 15, 2016. Subjective Pt evaluation today including: conversation w/ patient, physical exam, lab review, review of inpatient medication list Patient developed erythematous rash over his legs and abdomen in the late afternoon yesterday. He said it was not pruritic initially. Today, it now involves his back and he says that it feels like it is burning. Medications Current Inpatient Medications Medications (Trade) Dose Ordered Sig/Vijay Route Start Time Stop Time Status Last Admin Dose Admin Acetaminophen (Tylenol Tab) 650 mg Q4H PRN PO 07/12/16 04:00 08/11/16 03:59 07/13/16 20:34 650 MG Al Hydrox/Mg Hydrox/Simethicone (Maalox Max Susp) 15 ml Q4H PRN PO 07/12/16 04:00 08/11/16 03:59 Magnesium Hydroxide (Milk Of Magnesia Susp) 30 ml Q12H PRN PO 07/12/16 04:00 08/11/16 03:59 Ondansetron HCl (Zofran Inj) 4 mg Q6H PRN IV 07/12/16 04:00 08/11/16 03:59 Nitroglycerin (Nitrostat Tab) 0.4 mg UD PRN SL 07/12/16 04:00 08/11/16 03:59 Nitroglycerin (Nitroglycerin 2% Oint) 1 inch Q6 EXT 07/12/16 04:15 08/11/16 04:14 07/15/16 05:44 1 INCH Aspirin (Ecotrin Tab) 81 mg DAILY PO 07/12/16 09:00 08/11/16 08:59 07/15/16 09:00 81 MG Clopidogrel Bisulfate (plAVix TAB) 75 mg DAILY PO 07/12/16 09:00 08/11/16 08:59 07/15/16 09:00 75 MG Docusate Sodium (coLACE CAP) 100 mg BID PO 07/12/16 09:00 08/11/16 08:59 07/15/16 09:00 100 MG Finasteride (Proscar Tab) 5 mg DAILY PO 07/12/16 09:00 08/11/16 08:59 07/15/16 09:00 5 MG Hydralazine HCl 10 mg 10 mg TID PO 07/12/16 09:00 08/11/16 08:59 07/15/16 08:59 10 MG Furosemide/Syringe (Lasix Inj/ Syringe) 6 ml @ 4 mls/min BID IV 07/12/16 09:00 08/11/16 08:59 07/14/16 20:55 4 MLS/MIN Insulin Aspart (novoLOG ASPART) SLIDING SCALE If C... ACHS SC 07/12/16 11:00 08/11/16 10:59 07/15/16 09:05 18 UNITS Glucose (Glucose 40% Gel) 15-30 GRAMS 15 GRAMS... UD PRN PO 07/12/16 08:45 08/11/16 08:44 Glucose (Glucose Chew Tab) 4-8 Tablets 4 Tabl... UD PRN PO 07/12/16 08:45 08/11/16 08:44 Dextrose (Dextrose 50% 50ML Syringe) 25-50ML OF 50% DW IV FOR... UD PRN IV 07/12/16 08:45 08/11/16 08:44 Glucagon (Glucagon Inj) 1 mg UD PRN SQ 07/12/16 08:45 08/11/16 08:44 Miscellaneous Information (Consult Glycemic Management Pharmacy) 1 ea UD PRN N/A 07/12/16 09:29 08/11/16 09:28 Polyethylene (Miralax Powder Packet) 17 gm DAILY PRN PO 07/12/16 09:15 08/11/16 09:14 07/14/16 11:23 17 GM Nystatin (Mycostatin Powder) 1 appln DAILY EXT 07/13/16 09:00 08/12/16 08:59 07/15/16 08:59 1 APPLN Zolpidem Tartrate (Ambien Tab) 2.5 mg HS PRN PO 07/12/16 21:45 08/11/16 21:44 Enteral Nutritional Formula (Boost Glucose Control) 0.5 can TIDM PO 07/13/16 07:15 08/12/16 07:14 07/15/16 08:58 0.5 CAN Insulin Glargine (Lantus Solostar Pen) 10 unit BID SC 07/13/16 21:00 08/12/16 20:59 07/15/16 09:05 10 UNIT Isosorbide Mononitrate (Imdur Ext Rel Tab) 120 mg QAM PO 07/15/16 08:00 08/14/16 08:59 07/15/16 09:00 120 MG Objective Vital Signs Date Time Temp Pulse Resp B/P Pulse Ox O2 Delivery O2 Flow Rate FiO2 07/15/16 07:52 37.0 103 18 161/91 95 2.0 07/15/16 00:20 93 Nasal Cannula 3.0 CPAP 07/14/16 23:43 36.5 96 19 161/91 93 Nasal Cannula 3.0 CPAP 07/14/16 20:00 Nasal Cannula 3.0 CPAP 07/14/16 18:00 95 CPAP 07/14/16 16:02 36.7 86 16 161/88 95 Nasal Cannula 3.0 07/14/16 14:17 98 136/77 07/14/16 12:00 36.6 103 20 150/80 93 Nasal Cannula 3.0 Physical Exam General Appearance: no apparent distress Respiratory/Chest: + pertinent finding (mildly diminished in bases, clear above , not in distress) Cardiovascular: regular rate, rhythm Abdomen: normal bowel sounds, non tender, soft Extremities: + pertinent finding (trace to 1+ edema in the bilateral lower extremities) Neurologic/Psychiatric: alert, oriented x 3 Skin: + rash (erythematous, blanchable, morbiliform rash that involves the entire trunk and both lower extremities) Laboratory Results Last 24 Hours Test 07/14/16 12:04 07/14/16 16:22 07/14/16 20:37 07/15/16 05:16 Bedside Glucose 241 mg/dl 167 mg/dl 194 mg/dl White Blood Count 8.96 K/uL Red Blood Count 3.88 M/uL Hemoglobin 11.4 g/dL Hematocrit 35.7 % Mean Corpuscular Volume 92.0 fL Mean Corpuscular Hemoglobin 29.4 pg Mean Corpuscular Hemoglobin Concent 31.9 g/dl Platelet Count 323 K/uL Mean Platelet Volume 9.8 fL Neutrophils (%) (Auto) 64.7 % Lymphocytes (%) (Auto) 14.7 % Monocytes (%) (Auto) 13.1 % Eosinophils (%) (Auto) 5.4 % Basophils (%) (Auto) 0.9 % Neutrophils # (Auto) 5.80 K/uL Lymphocytes # (Auto) 1.32 K/uL Monocytes # (Auto) 1.17 K/uL Eosinophils # (Auto) 0.48 K/uL Basophils # (Auto) 0.08 K/uL RDW Standard Deviation 53.2 fL RDW Coefficient of Variation 16.1 % Immature Granulocyte % (Auto) 1.2 % Immature Granulocyte # (Auto) 0.11 K/uL Sodium Level 135 mmol/L Potassium Level 3.8 mmol/L Chloride Level 92 mmol/L Carbon Dioxide Level 32 mmol/L Anion Gap 11.0 mmol/L Blood Urea Nitrogen 49 mg/dl Creatinine 1.60 mg/dl Est Creatinine Clear Calc Drug Dose 36.1 ml/min Estimated GFR () 44.2 Estimated GFR (Non- 38.2 BUN/Creatinine Ratio 30.6 Random Glucose 143 mg/dl Uric Acid 4.3 mg/dl Calcium Level 9.0 mg/dl Magnesium Level 2.4 mg/dl Test 07/15/16 07:40 Bedside Glucose 304 mg/dl Assessment and Plan (1) Systolic and diastolic CHF, acute on chronic Assessment & Plan: Continues to improve slowly. Continue with diuretics. Titrate down oxygen as possible. (2) Rash Assessment & Plan: Start loratadine. If not improved, consider Derm consultation. (3) CKD (chronic kidney disease) Assessment & Plan: Cr decreased further despite diuretics. Nephro following (4) Pleural effusion on left Assessment & Plan: Clinically improved with diuresis. (5) COPD (chronic obstructive pulmonary disease) Assessment & Plan: Stable, not in exacerbation (6) Hypertension Assessment & Plan: BP still elevated after resuming home meds. Will add carvedilol since he has history of CAD and systolic CHF. (7) DM2 (diabetes mellitus, type 2) Assessment & Plan: Well controlled with sliding scale and Lantus, being managed by Pharm. Will continue (8) Physical deconditioning Assessment & Plan: PT/OT Discharge planning: other (SW working with son on [facility] vs SNF)
[2016-07-15] MEDS: FUROSEMIDE INJ 60 MG in SYRINGE 0 ML IV SCH ×2 (10:08→21:00)
[2016-07-15 13:30] VITALS: BP 148/80; PULSE 97
--- NOTE | 2016-07-15 14:54 | Pharmacy Progress Note ---
Glycemic Control: Progress Nt Date of Service Jul 15, 2016. Scope Glycemic Pharmacist consulted by Dr Velazquez on 07/12/18 for glycemic control and to write orders per [facility] inpatient glycemic control protocol. Objective Accuchecks BSG (last 24hrs): Test 07/14/16 16:22 07/14/16 20:37 07/15/16 05:16 07/15/16 07:40 Bedside Glucose 167 mg/dl (70-99) 194 mg/dl (70-99) 304 mg/dl (70-99) Random Glucose 143 mg/dl (70-99) Test 07/15/16 11:31 Bedside Glucose 289 mg/dl (70-99) Laboratory Data (last 24hrs) Test 07/15/16 05:16 Anion Gap 11.0 mmol/L BUN/Creatinine Ratio 30.6 Blood Urea Nitrogen 49 mg/dl Creatinine 1.60 mg/dl Potassium Level 3.8 mmol/L Sodium Level 135 mmol/L White Blood Count 8.96 K/uL Red Blood Count 3.88 M/uL Hemoglobin 11.4 g/dL Hematocrit 35.7 % Mean Corpuscular Volume 92.0 fL Mean Corpuscular Hemoglobin 29.4 pg Mean Corpuscular Hemoglobin Concent 31.9 g/dl Platelet Count 323 K/uL Mean Platelet Volume 9.8 fL Neutrophils (%) (Auto) 64.7 % Lymphocytes (%) (Auto) 14.7 % Monocytes (%) (Auto) 13.1 % Eosinophils (%) (Auto) 5.4 % Basophils (%) (Auto) 0.9 % Neutrophils # (Auto) 5.80 K/uL Lymphocytes # (Auto) 1.32 K/uL Monocytes # (Auto) 1.17 K/uL Eosinophils # (Auto) 0.48 K/uL Basophils # (Auto) 0.08 K/uL HbA1c: Test 07/13/16 05:51 Hemoglobin A1c 7.6 % (4.5-5.6) H Recent Pertinent Medications Outpatient Anti-diabetic Regimen: * Outpatient regimen is unclear; our current list includes: Glipizide 10mg PO BID, Januvia 50mg daily; Humalog 75/25 unknown dosage * A1c = 7.6 07/13/16 The patient is currently receiving: * Basal insulin: Lantus 10 units SQ BID - hold if BSG less than 120 * Correctional Insulin: Novolog Correction per scale ACHS Goal Range: Low 120 mg/dL - High 150 mg/dL Correction Factor: 20 mg/dL/unit * Prandial insulin: Per carb ratio of 1 unit per 6 grams CHO consumed * Oral Agents: None currently Risk Factors for Insulin Resistance: * Diet: [facility]; he is also ordered Boost Glucose Control Supplements w/ meals (10gm each). He eats his meals slowly and grazes between meals and today he has been drinking a lot of juice. Assessment & Plan ASSESSMENT: 07/12/16 * Type 2 diabetic admitted with ADHF * Level of glycemic control prior to admission unknown - will check A1c tomorrow * Fasting BSG 128-144 this AM with no basal insulin on board, however if he was taking glipizide [employer] this may have kept this value down * Will refrain from ordering basal insulin today; however will follow fasting BSG trend * Current Novolog dosing parameters are reasonable starting points based upon weight 07/13/16 * BSGs have fallen within the range of 179-200 since insulin orders entered yesterday * Fasting BSG elevated this AM with no basal insulin on board; will add wt based Lantus dose BID * Novolog CF and CR have prevented rapid rise in BSGs post-prandially. Current pattern suggests basal insulin deficiency 07/14/16 * BSGs still higher than goal, however fasting BSG has improved today * Fasting BSG 132-161 with 20 units of Lantus on board; there may further improvement with repeat dosing - will continue * Perhaps starting the day with a lower fasting BSG will lead to improved control * Will adjust the Novolog prandial dose slightly as post-prandial hyperglycemia did not improve much yesterday - however Boost supplements sipped between meals can affect accuracy of BSGs - I'm hesitant to make a large change 07/15/16 * BSGs not well controlled today but this is because he has been drinking juice and Boost supplements between meals * Our BSGs are not reliable for insulin coverage * He is at risk for hypoglycemia due to these dietary habits as we are reacting to premeal BSGs as if they are fasting BSG when they are not * Discussed BSGs and dietary habits with RN today - RN will consult dietary to see if there is a non-CHO containing juice or low carb supplement he could drink instead. * Will continue the current insulin orders b/c they performed well when diabetic diet was being followed PLAN FOR INPATIENT GLYCEMIC CONTROL: * Continue Lantus 10 units SQ BID - hold if BSG less than 120 * Continuing correction factor of 20 mg/dl/unit * Continue carb ratio of 1 unit per 6 grams CHO consumed * Continue goal range of Low 110 mg/dL - High 140 mg/dL * Consult dietary for low carb juice or beverage alternatives for patient to have between meals as basal / bolus insulin cannot be given to cover these carbs * Please note that the plan above was derived based on current level of insulin resistance and hospital stress. These recommendations are appropriate for inpatient admission only. Plan of care upon discharge will need to be reassessed to avoid potential outpatient hypo/hyperglycemia. Thank you.
[2016-07-15 15:47] VITALS: BP 120/70; PULSE 95; TEMP 36.4; O2SAT 96
[2016-07-15 16:00] VITALS: O2SAT 96
[2016-07-15] MEDS: ACETAMINOPHEN 325 MG TAB PO PRN (16:02)
[2016-07-15] MEDS ORDERED: NURSING VERBAL MED ORDER ONE (18:30)
--- NOTE | 2016-07-15 20:33 | Nephrology Progress Note ---
Nephrology Progress Note Date of Service: Jul 15, 2016. Subjective 85 yo male with chf and ckd stage 4 who does not want dialysis. pt tolerating the diuretics well. developed rash yesterday afternoon and continues to have the rash. now complaining of pain in bladder from the lujan catheter. urine is still clear yellow. no blood. urinating well. breathing is slowly improving. Objective Date Time Temp Pulse Resp B/P Pulse Ox O2 Delivery O2 Flow Rate FiO2 07/15/16 16:00 96 Room Air 2.0 07/15/16 15:47 36.4 95 20 120/70 96 Nasal Cannula 2.0 07/15/16 13:30 97 148/80 07/15/16 11:26 Nasal Cannula 3.0 07/15/16 07:52 37.0 103 18 161/91 95 2.0 07/15/16 00:20 93 Nasal Cannula 3.0 CPAP 07/14/16 23:43 36.5 96 19 161/91 93 Nasal Cannula 3.0 CPAP Physical Exam: General-aaox3, obese Eyes-no scleral icterus ENT-mmm Neck-supple Lungs-decreased at bases Heart-regular Abdomen-bs+ s/nt/nd Extremities-+1 edema Neuro-nonfocal derm-erythematous rash on legs, abdomen and back Current Inpatient Medications Medications (Trade) Dose Ordered Sig/Vijay Route Start Time Stop Time Status Last Admin Dose Admin Acetaminophen (Tylenol Tab) 650 mg Q4H PRN PO 07/12/16 04:00 08/11/16 03:59 07/15/16 16:02 650 MG Al Hydrox/Mg Hydrox/Simethicone (Maalox Max Susp) 15 ml Q4H PRN PO 07/12/16 04:00 08/11/16 03:59 Magnesium Hydroxide (Milk Of Magnesia Susp) 30 ml Q12H PRN PO 07/12/16 04:00 08/11/16 03:59 Ondansetron HCl (Zofran Inj) 4 mg Q6H PRN IV 07/12/16 04:00 08/11/16 03:59 Nitroglycerin (Nitrostat Tab) 0.4 mg UD PRN SL 07/12/16 04:00 08/11/16 03:59 Nitroglycerin (Nitroglycerin 2% Oint) 1 inch Q6 EXT 07/12/16 04:15 08/11/16 04:14 07/15/16 18:38 1 INCH Aspirin (Ecotrin Tab) 81 mg DAILY PO 07/12/16 09:00 08/11/16 08:59 07/15/16 09:00 81 MG Clopidogrel Bisulfate (plAVix TAB) 75 mg DAILY PO 07/12/16 09:00 08/11/16 08:59 07/15/16 09:00 75 MG Docusate Sodium (coLACE CAP) 100 mg BID PO 07/12/16 09:00 08/11/16 08:59 07/15/16 09:00 100 MG Finasteride (Proscar Tab) 5 mg DAILY PO 07/12/16 09:00 08/11/16 08:59 07/15/16 09:00 5 MG Hydralazine HCl 10 mg 10 mg TID PO 07/12/16 09:00 08/11/16 08:59 07/15/16 13:35 10 MG Furosemide/Syringe (Lasix Inj/ Syringe) 6 ml @ 4 mls/min BID IV 07/12/16 09:00 08/11/16 08:59 07/15/16 10:08 4 MLS/MIN Insulin Aspart (novoLOG ASPART) SLIDING SCALE If C... ACHS SC 07/12/16 11:00 08/11/16 10:59 07/15/16 18:42 17 UNITS Glucose (Glucose 40% Gel) 15-30 GRAMS 15 GRAMS... UD PRN PO 07/12/16 08:45 08/11/16 08:44 Glucose (Glucose Chew Tab) 4-8 Tablets 4 Tabl... UD PRN PO 07/12/16 08:45 08/11/16 08:44 Dextrose (Dextrose 50% 50ML Syringe) 25-50ML OF 50% DW IV FOR... UD PRN IV 07/12/16 08:45 08/11/16 08:44 Glucagon (Glucagon Inj) 1 mg UD PRN SQ 07/12/16 08:45 08/11/16 08:44 Miscellaneous Information (Consult Glycemic Management Pharmacy) 1 ea UD PRN N/A 07/12/16 09:29 08/11/16 09:28 Polyethylene (Miralax Powder Packet) 17 gm DAILY PRN PO 07/12/16 09:15 08/11/16 09:14 07/14/16 11:23 17 GM Nystatin (Mycostatin Powder) 1 appln DAILY EXT 07/13/16 09:00 08/12/16 08:59 07/15/16 08:59 1 APPLN Zolpidem Tartrate (Ambien Tab) 2.5 mg HS PRN PO 07/12/16 21:45 08/11/16 21:44 Enteral Nutritional Formula (Boost Glucose Control) 0.5 can TIDM PO 07/13/16 07:15 08/12/16 07:14 07/15/16 18:37 0.5 CAN Insulin Glargine (Lantus Solostar Pen) 10 unit BID SC 07/13/16 21:00 08/12/16 20:59 07/15/16 09:05 10 UNIT Isosorbide Mononitrate (Imdur Ext Rel Tab) 120 mg QAM PO 07/15/16 08:00 08/14/16 08:59 07/15/16 09:00 120 MG Loratadine (Claritin Tab) 10 mg QAM PO 07/16/16 08:00 08/15/16 07:59 Carvedilol (Coreg Tab) 6.25 mg BID PO 07/15/16 20:00 08/14/16 19:59 Last 24 Hours Test 07/14/16 20:37 07/15/16 05:16 07/15/16 07:40 07/15/16 11:31 Bedside Glucose 194 mg/dl 304 mg/dl 289 mg/dl White Blood Count 8.96 K/uL Red Blood Count 3.88 M/uL Hemoglobin 11.4 g/dL Hematocrit 35.7 % Mean Corpuscular Volume 92.0 fL Mean Corpuscular Hemoglobin 29.4 pg Mean Corpuscular Hemoglobin Concent 31.9 g/dl Platelet Count 323 K/uL Mean Platelet Volume 9.8 fL Neutrophils (%) (Auto) 64.7 % Lymphocytes (%) (Auto) 14.7 % Monocytes (%) (Auto) 13.1 % Eosinophils (%) (Auto) 5.4 % Basophils (%) (Auto) 0.9 % Neutrophils # (Auto) 5.80 K/uL Lymphocytes # (Auto) 1.32 K/uL Monocytes # (Auto) 1.17 K/uL Eosinophils # (Auto) 0.48 K/uL Basophils # (Auto) 0.08 K/uL RDW Standard Deviation 53.2 fL RDW Coefficient of Variation 16.1 % Immature Granulocyte % (Auto) 1.2 % Immature Granulocyte # (Auto) 0.11 K/uL Sodium Level 135 mmol/L Potassium Level 3.8 mmol/L Chloride Level 92 mmol/L Carbon Dioxide Level 32 mmol/L Anion Gap 11.0 mmol/L Blood Urea Nitrogen 49 mg/dl Creatinine 1.60 mg/dl Est Creatinine Clear Calc Drug Dose 36.1 ml/min Estimated GFR () 44.2 Estimated GFR (Non- 38.2 BUN/Creatinine Ratio 30.6 Random Glucose 143 mg/dl Uric Acid 4.3 mg/dl Calcium Level 9.0 mg/dl Magnesium Level 2.4 mg/dl Test 07/15/16 16:40 Bedside Glucose 243 mg/dl Assessment & Plan CKD stage 4-creatinine has improved with diuretics and is down to 1.6 now. urinating well and volume status slowly improving. concern for possible gouty flare yesterday with pain in ankle-likely more osteoarthritis with uric acid under 6. -pt with pain with urination. will remove lujan to see if pain improves. may be having bladder spasms.
[2016-07-15 21:03] VITALS: BP 129/71; PULSE 89
[2016-07-15] MEDS: CARVEDILOL 6.25 MG TAB PO SCH (21:05)
[2016-07-16] VITALS (8 sets, daily range): BP systolic 115–149; BP diastolic 65–78; PULSE 80–96; TEMP 36.5–36.6; O2SAT 94–96
[2016-07-16] MEDS: NITROGLYCERIN OINT 2% 1GM PACKET EXT SCH ×4 (00:37→17:50)
[2016-07-16 06:22] LABS: BUN/CREATININE RATIO 29.3 (10-20); CALCIUM 8.8 mg/dl (8.5-10.1); CREATININE 1.6 mg/dl (0.60-1.40); POTASSIUM 3.8 mmol/L (3.5-5.1)
[2016-07-16] MEDS: NYSTATIN POWDER 15GM BTL EXT SCH (09:05)
[2016-07-16] MEDS: FUROSEMIDE INJ 60 MG in SYRINGE 0 ML IV SCH ×2 (09:05→21:25)
[2016-07-16] MEDS: DOCUSATE SODIUM 100 MG CAP PO SCH ×2 (09:06→21:27)
[2016-07-16] MEDS: CARVEDILOL 6.25 MG TAB PO SCH ×2 (09:06→21:28)
[2016-07-16] MEDS: HydrALAZINE 10 MG TAB PO SCH ×3 (09:06→21:28)
[2016-07-16] MEDS: LORATADINE 10 MG TAB PO SCH (09:06)
[2016-07-16] MEDS: ASPIRIN 81 MG ECTAB PO SCH (09:06)
[2016-07-16] MEDS: CLOPIDOGREL BISULFATE 75 MG TAB PO SCH (09:07)
[2016-07-16] MEDS: FINASTERIDE 5 MG TAB PO SCH (09:07)
[2016-07-16] MEDS: ISOSORBIDE MONONITRATE 60 MG TABCR PO SCH (09:07)
[2016-07-16] MEDS: INSULIN ASPART 100 UNITS/ML 3 ML PEN SC SCH ×4 (09:11→21:35)
[2016-07-16] MEDS: INSULIN GLARGINE SOLOSTAR 100 UNITS/ML 3 ML PEN SC SCH ×2 (09:12→21:36)
[2016-07-16] MEDS: BOOST GLUCOSE CONTROL PO SCH ×3 (09:14→17:49)
--- NOTE | 2016-07-16 10:51 | Hospitalist Progress Note ---
Hospitalist Progress Note Date of Service Jul 16, 2016. Subjective Pt evaluation today including: conversation w/ patient, physical exam, chart review, lab review, review of studies, review of inpatient medication list overnight doing ok, no acute events, feels better, no chest pain, no SOB Objective Vital Signs Date Time Temp Pulse Resp B/P Pulse Ox O2 Delivery O2 Flow Rate FiO2 07/16/16 07:44 36.5 83 16 115/65 96 CPAP 3.0 07/16/16 05:37 80 133/77 07/16/16 00:35 87 136/78 07/16/16 00:16 36.6 86 20 127/77 94 CPAP 07/16/16 00:00 CPAP 2.0 07/15/16 21:03 89 129/71 07/15/16 16:00 96 Room Air 2.0 07/15/16 15:47 36.4 95 20 120/70 96 Nasal Cannula 2.0 07/15/16 13:30 97 148/80 07/15/16 11:26 Nasal Cannula 3.0 Physical Exam General Appearance: no apparent distress Eyes: normal inspection Neck: supple Respiratory/Chest: + decreased breath sounds Cardiovascular: regular rate, rhythm Abdomen: normal bowel sounds, non tender, soft Extremities: + pedal edema (bilateral +1 pedal edema) Neurologic/Psychiatric: no motor/sensory deficits Skin: + rash (lower extremities mild erythematous) Lymphatic: no adenopathy Laboratory Results Last 24 Hours Test 07/15/16 11:31 07/15/16 16:40 07/15/16 20:40 07/16/16 05:28 Bedside Glucose 289 mg/dl 243 mg/dl 206 mg/dl Sodium Level 134 mmol/L Potassium Level 3.8 mmol/L Chloride Level 92 mmol/L Carbon Dioxide Level 32 mmol/L Anion Gap 10.0 mmol/L Blood Urea Nitrogen 47 mg/dl Creatinine 1.60 mg/dl Est Creatinine Clear Calc Drug Dose 36.1 ml/min Estimated GFR () 44.2 Estimated GFR (Non- 38.2 BUN/Creatinine Ratio 29.3 Random Glucose 131 mg/dl Calcium Level 8.8 mg/dl Test 07/16/16 08:04 Bedside Glucose 176 mg/dl Assessment and Plan patient is an 85 yo M with history of hypertension, CAD s/p cardiac stents, CKD stage IV, hyperlipidemia, and COPD who presents ER with a 3 day history of shortness of breath and worsening bilateral lower extremities edema . 1 Acute on chronic systolic and diastolic CHF: improving, still on oxygen, continue lasix and titrate down oxygen 2 CKD: stage 4, Cr stable despite on diuretics, f/u nephro 3 Pleural effusion on left: clinically improving, no SOB, continue diuresis 4 COPD: no on home oxygen at home, but continue require oxygen during hospitalization, consider 2 step text before discharge, continue home medications. 5 HTN: stable, continue current management 6 DM: continue sliding scale and lantus and pharmacy management 7 disposition: PT/OT suggested acute rehab, will f/u social workers 8 DVT prophylaxis: heparin 5000 q8h 9: diet: renal cardiac diet code: Do not resuscitate
[2016-07-16] MEDS: HEPARIN SOD 5000 UNIT/0.5 ML CARP SQ SCH ×2 (13:04→21:36)
[2016-07-17] VITALS (7 sets, daily range): BP systolic 112–159; BP diastolic 56–83; PULSE 79–93; TEMP 36.4–36.8; O2SAT 94–97
[2016-07-17] MEDS: NITROGLYCERIN OINT 2% 1GM PACKET EXT SCH ×4 (00:04→17:41)
[2016-07-17] MEDS ORDERED: INSULIN ASPART 100 UNITS/ML 3 ML PEN SC SCH (02:00)
[2016-07-17] MEDS: HEPARIN SOD 5000 UNIT/0.5 ML CARP SQ SCH ×3 (06:18→20:43)
[2016-07-17 06:46] LABS: BUN/CREATININE RATIO 25.6 (10-20); CALCIUM 8.5 mg/dl (8.5-10.1); CREATININE 1.6 mg/dl (0.60-1.40)
[2016-07-17] MEDS: LORATADINE 10 MG TAB PO SCH (08:20)
[2016-07-17] MEDS: FUROSEMIDE INJ 60 MG in SYRINGE 0 ML IV SCH ×2 (08:20→20:33)
[2016-07-17] MEDS: NYSTATIN POWDER 15GM BTL EXT SCH (08:20)
[2016-07-17] MEDS: BOOST GLUCOSE CONTROL PO SCH ×3 (08:20→17:40)
[2016-07-17] MEDS: HydrALAZINE 10 MG TAB PO SCH ×3 (08:20→20:34)
[2016-07-17] MEDS: ASPIRIN 81 MG ECTAB PO SCH (08:21)
[2016-07-17] MEDS: DOCUSATE SODIUM 100 MG CAP PO SCH ×2 (08:21→20:34)
[2016-07-17] MEDS: ISOSORBIDE MONONITRATE 60 MG TABCR PO SCH (08:21)
[2016-07-17] MEDS: FINASTERIDE 5 MG TAB PO SCH (08:21)
[2016-07-17] MEDS: CARVEDILOL 6.25 MG TAB PO SCH ×2 (08:21→20:35)
[2016-07-17] MEDS: CLOPIDOGREL BISULFATE 75 MG TAB PO SCH (08:21)
[2016-07-17] MEDS: INSULIN ASPART 100 UNITS/ML 3 ML PEN SC SCH ×4 (08:26→20:37)
[2016-07-17] MEDS: INSULIN GLARGINE SOLOSTAR 100 UNITS/ML 3 ML PEN SC SCH ×2 (08:26→20:38)
[2016-07-17 09:55] LABS: POTASSIUM 3.8 mmol/L (3.5-5.1)
--- NOTE | 2016-07-17 10:09 | Hospitalist Progress Note ---
Hospitalist Progress Note Date of Service Jul 17, 2016. Subjective Pt evaluation today including: conversation w/ patient, physical exam, chart review, lab review, review of studies, review of inpatient medication list overnight doing ok, no acute event Objective Vital Signs Date Time Temp Pulse Resp B/P Pulse Ox O2 Delivery O2 Flow Rate FiO2 07/17/16 09:53 Nasal Cannula 2.0 07/17/16 07:31 36.5 87 18 112/56 94 Nasal Cannula 3.0 07/17/16 06:15 79 128/68 07/17/16 00:00 36.8 82 20 135/69 95 CPAP 07/17/16 00:00 CPAP 2.0 07/16/16 21:26 89 136/70 07/16/16 16:10 96 Nasal Cannula 2.0 07/16/16 15:50 36.6 81 20 121/69 96 Nasal Cannula 3.0 07/16/16 15:27 Nasal Cannula 2.0 07/16/16 12:58 96 149/74 Physical Exam General Appearance: no apparent distress Eyes: normal inspection ENT: hearing grossly normal Neck: supple Respiratory/Chest: chest non-tender, + decreased breath sounds Cardiovascular: regular rate, rhythm Abdomen: normal bowel sounds, non tender, soft Extremities: + pedal edema (improving comparing yesterday) Neurologic/Psychiatric: no motor/sensory deficits, oriented x 3 Skin: normal color Laboratory Results Last 24 Hours Test 07/16/16 11:56 07/16/16 16:47 07/16/16 19:59 07/17/16 01:41 Bedside Glucose 264 mg/dl 142 mg/dl 260 mg/dl 130 mg/dl Test 07/17/16 05:10 07/17/16 07:53 Sodium Level 135 mmol/L Potassium Level 3.8 mmol/L Chloride Level 93 mmol/L Carbon Dioxide Level 34 mmol/L Anion Gap 8.0 mmol/L Blood Urea Nitrogen 41 mg/dl Creatinine 1.60 mg/dl Est Creatinine Clear Calc Drug Dose 36.1 ml/min Estimated GFR () 44.2 Estimated GFR (Non- 38.2 BUN/Creatinine Ratio 25.6 Random Glucose 123 mg/dl Calcium Level 8.5 mg/dl Chemistry Specimen Hemolysis Bedside Glucose 137 mg/dl Assessment and Plan patient is an 85 yo M with history of hypertension, CAD s/p cardiac stents, CKD stage IV, hyperlipidemia, and COPD who presents ER with a 3 day history of shortness of breath and worsening bilateral lower extremities edema . 1 Acute on chronic systolic and diastolic CHF: feels much better, improving, still on oxygen, continue lasix and titrate down oxygen. will switch to PO lasix when discharge 2 CKD: stage 4, Cr 1.6, stable despite on diuretics, f/u nephro as outpatient 3 Pleural effusion on left: improving, no SOB, continue diuresis 4 COPD: no on home oxygen at home, but continue require oxygen during hospitalization, consider 2 step text before discharge, continue home medications. 5 HTN: stable, continue current management 6 DM: stable, continue sliding scale and lantus and pharmacy management 7 disposition: PT/OT suggested acute rehab, will f/u social workers 8 DVT prophylaxis: heparin 5000 q8h 9: diet: renal cardiac diet code: Do not resuscitate patient can be discharged when acute rehabilitation place is arranged.
[2016-07-17] MEDS: MoRPHine SULFATE 2 MG/ML CARP IV STA (23:33)
[2016-07-17] MEDS ORDERED: MoRPHine SULFATE 2 MG/ML CARP ONE (23:34)
--- NOTE | 2016-07-17 23:40 | Progress Note ---
Progress Note RESIDENT [employer] COVERAGE NOTE Asked to see patient for shortness of breath / respiratory distress over last 1 hour Chart r/v: Pt admitted on for CHF exacerbation and L pleural effusion. Has been getting Lasix, most recently _mg at 9pm. Hx of COPD. Nurse reports has been anxious and short of breath over last hour. Always a belly breather so that is not new. VS: Per EMR, and pt has been afebrile. O/E: General: Mild distress,fighting CPAP mask CVS: Tachycardic, no murmurs audible Chest: End-expiratory wheeze heard diffusely, bibasilar crackles Abd: abdominal breathing Ext: +1 edema A: Worsening effusion vs Anxiety P: CXR Start on BiPAP 10/5 Duoneb now Morphine 2mg IV Will follow up to determine if more Lasix needed RN and respiratory informed / also at bedside PT a DNR/DNI I can be paged at 2023 if needed Resident Tracking Resident Involvement: Stone Paver Coverage Note Care Provided: Adult Hospital Medicine
[2016-07-18] VITALS (16 sets, daily range): BP systolic 120–160; BP diastolic 67–94; PULSE 78–110; TEMP 36.3–36.5; O2SAT 94–100
[2016-07-18] MEDS ORDERED: ALBUT/IPRATROP 3MG/0.5MG NEB 3 ML VIAL INH ONE
[2016-07-18] MEDS: MoRPHine SULFATE 2 MG/ML CARP IV STA (00:11)
[2016-07-18] MEDS: NITROGLYCERIN OINT 2% 1GM PACKET EXT SCH ×5 (00:12→23:36)
[2016-07-18 00:16] LABS: BASO % 1.8 %; BASO ABS # 0.19 K/uL (0-0.2); EOS % 4.6 %; HEMATOCRIT 34.9 % (42-52); IG% 3.1 %; LYMPH % 14.8 %; MEAN CELL VOLUME 93.8 fL (80-100); MEAN CORPUSCULAR HEMOGLOBIN 30.4 pg (25-34); MEAN PLATELET VOLUME 9.2 fL (7.4-10.4); MONO % 8.1 %; NEUT % 67.6 %; PLATELET COUNT 319 K/uL (130-400); RED BLOOD COUNT 3.72 M/uL (4.7-6.1); WHITE BLOOD COUNT 10.81 K/uL (4.8-10.8)
[2016-07-18 00:20] LABS: COMPLETE YES; MEAN CORPUSCULAR HGB CONC 32.4 g/dl (32-36)
[2016-07-18 00:30] LABS: ARTERIAL BLD GAS O2 SATURATION 94.7 % (90-95); ARTERIAL BLOOD GAS BASE EXCESS 9.4 mEq/L (-9-1.8); ARTERIAL BLOOD GAS HCO3 34 mmol/L (19-24); ARTERIAL BLOOD GAS PO2 71 mm/Hg (80-95); ARTERIAL BLOOD GAS pH 7.48 (7.35-7.45)
[2016-07-18 00:45] LABS: ALB/GLOB RATIO 0.6 (0.9-2); BUN/CREATININE RATIO 25.9 (10-20); CALCIUM 8.5 mg/dl (8.5-10.1); CKMB/CK RATIO 3.6 (0-3.0); CREATININE 1.7 mg/dl (0.60-1.40)
[2016-07-18 00:46] LABS: ALLEN TEST POS (POS)
[2016-07-18 00:47] LABS: O2 ADMINISTRATION 10L
[2016-07-18] MEDS: HEPARIN SOD 5000 UNIT/0.5 ML CARP SQ SCH ×3 (05:45→21:27)
[2016-07-18 07:13] LABS: BUN/CREATININE RATIO 25.5 (10-20); CALCIUM 8.7 mg/dl (8.5-10.1); CREATININE 1.7 mg/dl (0.60-1.40); POTASSIUM 4.1 mmol/L (3.5-5.1)
[2016-07-18] MEDS: ALBUT/IPRATROP 3MG/0.5MG NEB 3 ML VIAL INH SCH ×4 (07:17→19:22)
[2016-07-18 07:20] LABS: CKMB/CK RATIO 4.2 (0-3.0)
--- NOTE | 2016-07-18 07:34 | DIAGNOSTIC IMAGING REPORT ---
CHEST ONE VIEW PORTABLE HISTORY: Worsening short of breath. Confusion. COMPARISON: Chest 07/12/2016. FINDINGS: Progression of the diffuse interstitial vascular thickening consistent with moderate pulmonary edema. The heart remains mildly enlarged. There are small bilateral pleural effusions. No pneumothorax. Poststernotomy changes are again noted. Calcified and tortuous thoracic aorta. IMPRESSION: Progression of the moderate pulmonary edema. Cardiomegaly and small bilateral pleural effusions persist. Electronically signed by: Alan Jones M.D. 07/18/2016 7:32 AM Dictated Date/Time: 07/18/2016 7:31 AM
[2016-07-18] MEDS: FUROSEMIDE INJ 60 MG in SYRINGE 0 ML IV SCH ×2 (07:44→19:54)
[2016-07-18] MEDS: BOOST GLUCOSE CONTROL PO SCH ×3 (08:00→17:00)
[2016-07-18] MEDS: NYSTATIN POWDER 15GM BTL EXT SCH (08:14)
[2016-07-18] MEDS: HydrALAZINE 10 MG TAB PO SCH ×3 (08:14→19:54)
[2016-07-18] MEDS: DOCUSATE SODIUM 100 MG CAP PO SCH ×2 (08:15→19:54)
[2016-07-18] MEDS: ASPIRIN 81 MG ECTAB PO SCH (08:15)
[2016-07-18] MEDS: CARVEDILOL 6.25 MG TAB PO SCH ×2 (08:15→19:54)
[2016-07-18] MEDS: ISOSORBIDE MONONITRATE 60 MG TABCR PO SCH (08:15)
[2016-07-18] MEDS: FINASTERIDE 5 MG TAB PO SCH (08:15)
[2016-07-18] MEDS: LORATADINE 10 MG TAB PO SCH (08:15)
[2016-07-18] MEDS: CLOPIDOGREL BISULFATE 75 MG TAB PO SCH (08:15)
[2016-07-18] MEDS: INSULIN ASPART 100 UNITS/ML 3 ML PEN SC SCH ×4 (08:19→21:27)
[2016-07-18] MEDS: INSULIN GLARGINE SOLOSTAR 100 UNITS/ML 3 ML PEN SC SCH ×2 (08:19→20:31)
[2016-07-18 08:39] LABS: URINE APPEARANCE CLEAR (CLEAR); URINE BILIRUBIN NEG (NEG); URINE COLOR YELLOW; URINE NITRITE NEG (NEG); URINE PH 5.5 (4.5-7.5); URINE SPECIFIC GRAVITY 1.012 (1.000-1.030); UROBILINOGEN NEG (NEG); ZZURINE CULT IF INDIC CATH NO
[2016-07-18 08:41] LABS: MANUAL MICROSCOPIC REQUIRED? NO; REVIEW REQ? NO
--- NOTE | 2016-07-18 17:22 | Hospitalist Progress Note ---
Hospitalist Progress Note Date of Service Jul 18, 2016. Subjective Pt evaluation today including: conversation w/ patient, conversation w/ family , physical exam, chart review, lab review, review of studies, review of inpatient medication list Patient reported having episode of anxiety the previous evening. Indeed, the patient was seen by one of the nocturnists and was diagnosed as having a panic attack. A family member was present reported that this same thing was happening at home fairly frequently at least once daily. I discussed a low dose SSRI to try and the patient and family member agreed. I have not yet heard about availability of a bed at a rehab hospital. Additional Comments: A 10 system review was performed and all were negative. Positives were placed in the subjective section. Objective Vital Signs Date Time Temp Pulse Resp B/P Pulse Ox O2 Delivery O2 Flow Rate FiO2 07/18/16 16:10 81 14 94 Nasal Cannula 4.0 07/18/16 15:20 36.5 79 20 132/67 96 Nasal Cannula 4.0 07/18/16 12:28 100 Room Air 2.0 07/18/16 12:19 92 154/94 07/18/16 11:31 99 14 100 Nasal Cannula 2.0 07/18/16 10:06 Nasal Cannula 2.0 07/18/16 07:55 36.3 79 20 160/89 100 BiPAP 07/18/16 07:18 89 100 5.0 07/18/16 07:17 89 20 100 BiPAP/CPAP 5.0 07/18/16 02:21 88 95 5.0 07/18/16 00:28 110 99 10.0 07/18/16 00:27 110 30 99 BiPAP/CPAP 10.0 07/18/16 00:00 94 BiPAP 5.0 07/17/16 20:32 93 159/80 Physical Exam Notes: GEN: Awake, alert, and oriented x 2. Not in acute distress Pulse Ox was 100% on 2L n.c. as I was in the room. HEENT: Tm's intact, no inflammation, EOMI, PERRLA, MMM Neck: Soft, supple Lungs: CTA b/l, no r/r + expiratory wheezes a few crackles at the bases. Heart: REG, nrl S1S2 without murmurs, rubs or gallops Abdomen: Soft, NT, ND, + BS EXT: No C/C/E NEURO: CN's II-XII grossly intact, non-focal Skin: warm, dry, no rashes PSYCH: cooperative. Laboratory Results Last 24 Hours Test 07/17/16 19:45 07/18/16 00:05 07/18/16 06:00 07/18/16 06:20 Bedside Glucose 207 mg/dl White Blood Count 10.81 K/uL Red Blood Count 3.72 M/uL Hemoglobin 11.3 g/dL Hematocrit 34.9 % Mean Corpuscular Volume 93.8 fL Mean Corpuscular Hemoglobin 30.4 pg Mean Corpuscular Hemoglobin Concent 32.4 g/dl Platelet Count 319 K/uL Mean Platelet Volume 9.2 fL Neutrophils (%) (Auto) 67.6 % Lymphocytes (%) (Auto) 14.8 % Monocytes (%) (Auto) 8.1 % Eosinophils (%) (Auto) 4.6 % Basophils (%) (Auto) 1.8 % Neutrophils # (Auto) 7.31 K/uL Lymphocytes # (Auto) 1.60 K/uL Monocytes # (Auto) 0.88 K/uL Eosinophils # (Auto) 0.50 K/uL Basophils # (Auto) 0.19 K/uL RDW Standard Deviation 54.8 fL RDW Coefficient of Variation 16.2 % Immature Granulocyte % (Auto) 3.1 % Immature Granulocyte # (Auto) 0.33 K/uL Nucleated RBC Absolute Count (auto) 0.02 K/uL Nucleated Red Blood Cells % 0.2 % Arterial Blood pH 7.48 Arterial Blood Partial Pressure CO2 47 mmHg Arterial Blood Partial Pressure O2 71 mm/Hg Arterial Blood HCO3 34 mmol/L Arterial Blood Oxygen Saturation 94.7 % Arterial Blood Base Excess 9.4 mEq/L Arterial Blood Gas Delivery 10L Santy Test POS Sodium Level 137 mmol/L 136 mmol/L Potassium Level 4.0 mmol/L 4.1 mmol/L Chloride Level 94 mmol/L 94 mmol/L Carbon Dioxide Level 33 mmol/L 34 mmol/L Anion Gap 10.0 mmol/L 8.0 mmol/L Blood Urea Nitrogen 44 mg/dl 43 mg/dl Creatinine 1.70 mg/dl 1.70 mg/dl Est Creatinine Clear Calc Drug Dose 34.0 ml/min 34.0 ml/min Estimated GFR () 41.1 41.1 Estimated GFR (Non- 35.5 35.5 BUN/Creatinine Ratio 25.9 25.5 Random Glucose 139 mg/dl 146 mg/dl Calcium Level 8.5 mg/dl 8.7 mg/dl Total Bilirubin 0.5 mg/dl Aspartate Amino Transf (AST/SGOT) 106 U/L Alanine Aminotransferase (ALT/SGPT) 112 U/L Alkaline Phosphatase 170 U/L Total Creatine Kinase 67 U/L 60 U/L Creatine Kinase MB 2.4 ng/ml 2.5 ng/ml Creatine Kinase MB Ratio 3.6 4.2 Troponin I 0.144 ng/ml 0.155 ng/ml Total Protein 7.0 gm/dl Albumin 2.7 gm/dl Globulin 4.3 gm/dl Albumin/Globulin Ratio 0.6 Test 07/18/16 07:47 07/18/16 08:07 07/18/16 11:55 Bedside Glucose 140 mg/dl Urine Color YELLOW Urine Appearance CLEAR Urine pH 5.5 Urine Specific [place] 1.012 Urine Protein NEG Urine Glucose (UA) NEG Urine Ketones NEG Urine Occult Blood NEG Urine Nitrite NEG Urine Bilirubin NEG Urine Urobilinogen NEG Urine Leukocyte Esterase NEG Urine WBC (Auto) 0 /hpf Urine RBC (Auto) 0-4 /hpf Urine Hyaline Casts (Auto) 1-5 /lpf Urine Epithelial Cells (Auto) 10-20 /lpf Urine Bacteria (Auto) NEG Total Creatine Kinase 58 U/L Creatine Kinase MB 2.9 ng/ml Creatine Kinase MB Ratio 5.0 Troponin I 0.127 ng/ml Assessment and Plan 1 Acute on chronic systolic and diastolic CHF: feels much better, improving, still on oxygen, continue lasix. 2 CKD: stage 4. f/u nephro as outpatient 3 Pleural effusion on left: improving, no SOB, continue diuresis 4 COPD: no on home oxygen at home, but continue require oxygen during hospitalization, consider 2 step text before discharge, continue home medications. 5 HTN: stable, continue current management 6 DM: stable, continue sliding scale and lantus and pharmacy management 7 disposition: PT/OT suggested acute rehab, will f/u social workers 8 DVT prophylaxis: heparin 5000 q8h code: Do not resuscitate Discharge planning: rehab hospital
[2016-07-19] VITALS (11 sets, daily range): BP systolic 126–166; BP diastolic 82–99; PULSE 75–91; TEMP 36.3–36.4; O2SAT 96–99
[2016-07-19] MEDS: NITROGLYCERIN OINT 2% 1GM PACKET EXT SCH ×4 (06:00→23:53)
[2016-07-19] MEDS: HEPARIN SOD 5000 UNIT/0.5 ML CARP SQ SCH ×3 (06:05→22:09)
[2016-07-19 06:20] LABS: HEMATOCRIT 32.6 % (42-52); MEAN CELL VOLUME 94.5 fL (80-100); MEAN CORPUSCULAR HEMOGLOBIN 30.1 pg (25-34); MEAN CORPUSCULAR HGB CONC 31.9 g/dl (32-36); MEAN PLATELET VOLUME 9.3 fL (7.4-10.4); PLATELET COUNT 293 K/uL (130-400); RED BLOOD COUNT 3.45 M/uL (4.7-6.1); WHITE BLOOD COUNT 9.79 K/uL (4.8-10.8)
[2016-07-19] MEDS: ALBUT/IPRATROP 3MG/0.5MG NEB 3 ML VIAL INH SCH ×4 (07:18→19:32)
[2016-07-19] MEDS: CLOPIDOGREL BISULFATE 75 MG TAB PO SCH (07:45)
[2016-07-19] MEDS: FINASTERIDE 5 MG TAB PO SCH (07:45)
[2016-07-19] MEDS: SERTRALINE HCL 50 MG TAB PO SCH (07:45)
[2016-07-19] MEDS: ASPIRIN 81 MG ECTAB PO SCH (07:45)
[2016-07-19] MEDS: CARVEDILOL 6.25 MG TAB PO SCH ×2 (07:45→19:45)
[2016-07-19] MEDS: NYSTATIN POWDER 15GM BTL EXT SCH (07:46)
[2016-07-19] MEDS: FUROSEMIDE INJ 60 MG in SYRINGE 0 ML IV SCH ×2 (07:46→19:43)
[2016-07-19] MEDS: LORATADINE 10 MG TAB PO SCH (07:46)
[2016-07-19] MEDS: ISOSORBIDE MONONITRATE 60 MG TABCR PO SCH (07:46)
[2016-07-19] MEDS: HydrALAZINE 10 MG TAB PO SCH ×3 (07:46→19:44)
[2016-07-19] MEDS: DOCUSATE SODIUM 100 MG CAP PO SCH ×2 (07:47→19:44)
[2016-07-19] MEDS: BOOST GLUCOSE CONTROL PO SCH ×3 (08:31→17:00)
[2016-07-19] MEDS: INSULIN GLARGINE SOLOSTAR 100 UNITS/ML 3 ML PEN SC SCH ×2 (08:35→19:52)
[2016-07-19] MEDS: INSULIN ASPART 100 UNITS/ML 3 ML PEN SC SCH ×4 (09:22→22:11)
[2016-07-19 10:17] LABS: CALCIUM 8.4 mg/dl (8.5-10.1); CREATININE 1.8 mg/dl (0.60-1.40); POTASSIUM 3.8 mmol/L (3.5-5.1)
--- NOTE | 2016-07-19 13:54 | Pharmacy Progress Note ---
Glycemic: Assessment & Plan Date of Service Jul 19, 2016. Assessment & Plan Assessment * BSG's ranging 123-250 mg/dL over the last 24 hours * Stressors that would impact insulin resistance are unchanging * Will decrease goal range as some BSG's are still high Plan * Basal insulin: Lantus 10 units every 12 hours - 1/2 dose for BSG < 120 mg/dL * Correctional Insulin: Novolog Correction per scale ACHS Decrease Goal Range: Low 120 mg/dL - High 150 mg/dL Correction Factor: 20 mg/dL/unit * Prandial insulin: Per carb ratio of 1 unit per 5 grams CHO consumed Pharmacy will continue to monitor patient daily and write orders per [facility] inpatient glycemic control protocol. Thanks. * Please note that the plan above was derived based on current level of insulin resistance and hospital stress. These recommendations are appropriate for inpatient admission only. Plan of care upon discharge will need to be reassessed to avoid potential outpatient hypo/hyperglycemia.
--- NOTE | 2016-07-19 14:56 | DIAGNOSTIC IMAGING REPORT ---
CT OF THE CHEST WITHOUT IV CONTRAST CLINICAL HISTORY: SOB, hypoxia. PLEURAL EFFUSION COMPARISON STUDY: Chest x-ray dated 07/17/2016 CT DOSE: 605.62 mGycm TECHNIQUE: CT of the thorax was performed from the thoracic inlet to the lung bases. Images are reviewed in the axial, sagittal, and coronal planes. IV contrast was not administered for this examination. FINDINGS: Thyroid: Imaged portions of the thyroid gland are normal in appearance. Thoracic aorta: The thoracic aorta is normal in course and caliber, noting standard 3 vessel arch anatomy. Heart: The heart is enlarged with coronary artery calcifications. Lungs and pleural spaces: There are moderate bilateral pleural effusions. There is bilateral septal edema. There is no lobar consolidation. Evaluation is limited due to respiratory motion artifact. There is bibasilar compressive atelectatic change. Mediastinum: There are mildly enlarged mediastinal lymph nodes. These measure up to 11 mm in short axis. Tory: Evaluation the hilar structures is limited due to the lack of intravenous contrast. Mildly prominent hilar lymph nodes are suspected Axilla: There is no evidence of pathologic axillary lymphadenopathy Upper abdomen: There is cholelithiasis. There is debris within the thoracic esophagus. There is tracheomalacia with narrowing of the AP diameter of the trachea. Skeletal structures: There are no lytic or blastic osseous lesions. There are healing right-sided rib fractures. IMPRESSION: 1. Tracheomalacia 2. Cardiomegaly and coronary artery calcifications 3. CT findings consistent with congestive failure and interstitial pulmonary edema 4. Mildly enlarged mediastinal lymph nodes 5. Cholelithiasis 6. Moderate bilateral pleural effusions Electronically signed by: Destin Burdick M.D. 07/19/2016 2:54 PM Dictated Date/Time: 07/19/2016 2:47 PM
--- NOTE | 2016-07-19 14:58 | DIAGNOSTIC IMAGING REPORT ---
NUCLEAR PULMONARY VENTILATION/PERFUSION SCAN CLINICAL HISTORY: Hypoxia. COMPARISON STUDY: Chest x-ray dated 07/17/2016. Chest CT dated 07/19/2016. TECHNIQUE: Initially, ventilation images of both lungs are obtained following the inhalation of 33 mCi of aerosolized technetium 99m DTPA. Subsequently, perfusion images of both lungs were obtained following the IV administration of 5.8 mCi of technetium 99m MAA. Ventilation and perfusion images were acquired in the anterior, posterior, and oblique projections. FINDINGS: Chest x-ray and chest CT examinations showed cardiomegaly with evidence of congestive failure. There are pleural effusions with bibasilar consolidation. The ventilation of both lungs is markedly heterogeneous. There is deposition of tracer within the central airways suggesting obstructive physiology. Perfusion is heterogeneous. Numerous small segmental perfusion defects are identified. No large perfusion defect is seen. IMPRESSION: Findings are technically indeterminant due to the presence of superimposed congestive failure. This is at most intermediate probability for pulmonary embolus. No large segmental perfusion defect is seen. Electronically signed by: Dm Reeves M.D. 07/19/2016 2:55 PM Dictated Date/Time: 07/19/2016 2:50 PM
--- NOTE | 2016-07-19 19:21 | Hospitalist Progress Note ---
Hospitalist Progress Note Date of Service Jul 19, 2016. Subjective Pt evaluation today including: conversation w/ patient, physical exam, chart review, lab review, review of studies, review of inpatient medication list I spoke to the patient about the results of the CT scan of the chest and that I feel despite the treatments we have given (and in light of attempting to keep the kidney function as good as possible) that we are not making progress. I told him that I could offer to have a surgeon take pleural fluid off and that to aggressively treat the CHF he would require high doses of diuretics and/or dialysis (which he is adamantly against). I also told him that he could choose to take each day as it comes, allow nature to take its course, and treat discomfort. This is exactly what he would like to do. He wanted me to update his caregiver of his decision, which I have. He also asked that I tell his son that is power of attorney recruiter. This son lives in [place] and we do not have his number on the chart. The caregiver tells me that she can bring it in so that I can call and update his son tomorrow. He would like to go home. He would like to see what hospice care could offer him. I will ask palliative to evaluate him tomorrow. Additional Comments: A 10 system review was performed and all were negative. Positives were placed in the subjective section. Objective Vital Signs Date Time Temp Pulse Resp B/P Pulse Ox O2 Delivery O2 Flow Rate FiO2 07/19/16 16:00 98 Nasal Cannula 4.0 07/19/16 15:34 36.3 80 18 146/82 99 Room Air 4.0 07/19/16 15:27 76 165/97 07/19/16 15:22 76 16 96 Nasal Cannula 4.0 07/19/16 11:20 78 16 96 Nasal Cannula 4.0 07/19/16 08:00 Nasal Cannula 4.0 07/19/16 07:36 36.4 86 22 156/84 99 Nasal Cannula 6.0 07/19/16 07:18 91 16 98 Nasal Cannula 4.0 07/19/16 05:56 75 126/85 07/19/16 00:00 97 BiPAP 4.0 07/18/16 23:49 36.4 85 18 143/83 100 BiPAP 4.0 07/18/16 23:34 78 120/67 07/18/16 19:52 80 134/84 07/18/16 19:22 86 16 98 BiPAP/CPAP 4.0 Physical Exam Notes: GEN: Awake, alert, and oriented x 3. Not in acute distress HEENT: Tm's intact, no inflammation, EOMI, PERRLA, MMM Neck: Soft, supple Lungs: Decreased breath sounds at the bases b/l. crackles 1/[address] up b/l. Heart: REG, nrl S1S2 without murmurs, rubs or gallops Abdomen: Soft, NT, ND, + BS EXT: No C/C/E NEURO: CN's II-XII grossly intact, non-focal Skin: warm, dry, no rashes PSYCH: pleasant, cooperative. Laboratory Results Last 24 Hours Test 07/18/16 20:05 07/19/16 05:47 07/19/16 07:00 07/19/16 09:20 Bedside Glucose 247 mg/dl 127 mg/dl White Blood Count 9.79 K/uL Red Blood Count 3.45 M/uL Hemoglobin 10.4 g/dL Hematocrit 32.6 % Mean Corpuscular Volume 94.5 fL Mean Corpuscular Hemoglobin 30.1 pg Mean Corpuscular Hemoglobin Concent 31.9 g/dl RDW Standard Deviation 56.3 fL RDW Coefficient of Variation 16.5 % Platelet Count 293 K/uL Mean Platelet Volume 9.3 fL Nucleated RBC Absolute Count (auto) 0.07 K/uL Nucleated Red Blood Cells % 0.7 % D-Dimer 1240 ug/L FEU Sodium Level 135 mmol/L Potassium Level 3.8 mmol/L Chloride Level 92 mmol/L Carbon Dioxide Level 33 mmol/L Anion Gap 10.0 mmol/L Blood Urea Nitrogen 45 mg/dl Creatinine 1.80 mg/dl Est Creatinine Clear Calc Drug Dose 32.1 ml/min Estimated GFR () 38.4 Estimated GFR (Non- 33.1 BUN/Creatinine Ratio 25.0 Random Glucose 204 mg/dl Calcium Level 8.4 mg/dl Test 07/19/16 11:23 07/19/16 16:30 Bedside Glucose 250 mg/dl 142 mg/dl Assessment and Plan 1 Acute on chronic systolic and diastolic CHF: Had hypoxemia overnight requiring increased oxygen. Ct scan of the chest shows that we are not making much improvement without more aggressive therapy which the patient is not at all interested in. 2 CKD: stage 4. f/u nephro as outpatient 3 Pleural effusion b/l. 4 COPD: anticipate he will need supplemental oxygen from this point on.. 5 HTN: stable, continue current management 6 DM: stable, continue sliding scale and lantus and pharmacy management 7 disposition: Patient would like to return home and consider hospice focus. 8 DVT prophylaxis: heparin 5000 q8h code: Do not resuscitate I will ask palliative care to see the patient.
[2016-07-20] VITALS (9 sets, daily range): BP systolic 123–152; BP diastolic 68–75; PULSE 73–89; TEMP 36.3–36.4; O2SAT 90–98
[2016-07-20] MEDS: HEPARIN SOD 5000 UNIT/0.5 ML CARP SQ SCH ×3 (05:47→21:37)
[2016-07-20] MEDS: NITROGLYCERIN OINT 2% 1GM PACKET EXT SCH ×3 (05:50→17:49)
[2016-07-20 06:22] LABS: BASO % 2.8 %; BASO ABS # 0.27 K/uL (0-0.2); COMPLETE YES; EOS % 4.8 %; IG% 2.8 %; LYMPH % 21.5 %; LYMPH ABS # 2.09 K/uL (1.2-3.4); MEAN CELL VOLUME 95.2 fL (80-100); MEAN CORPUSCULAR HEMOGLOBIN 30.5 pg (25-34); MEAN CORPUSCULAR HGB CONC 32.1 g/dl (32-36); MEAN PLATELET VOLUME 9.2 fL (7.4-10.4); MONO % 8.9 %; NEUT % 59.2 %; PLATELET COUNT 271 K/uL (130-400); RED BLOOD COUNT 3.57 M/uL (4.7-6.1); WHITE BLOOD COUNT 9.73 K/uL (4.8-10.8)
[2016-07-20 06:59] LABS: BUN/CREATININE RATIO 28.8 (10-20); CALCIUM 8.6 mg/dl (8.5-10.1); CREATININE 1.4 mg/dl (0.60-1.40); POTASSIUM 3.7 mmol/L (3.5-5.1)
[2016-07-20] MEDS: ALBUT/IPRATROP 3MG/0.5MG NEB 3 ML VIAL INH SCH ×4 (07:09→19:14)
[2016-07-20] MEDS: DOCUSATE SODIUM 100 MG CAP PO SCH ×2 (08:07→19:47)
[2016-07-20] MEDS: LORATADINE 10 MG TAB PO SCH (08:07)
[2016-07-20] MEDS: FUROSEMIDE INJ 60 MG in SYRINGE 0 ML IV SCH ×2 (08:07→19:47)
[2016-07-20] MEDS: ISOSORBIDE MONONITRATE 60 MG TABCR PO SCH (08:07)
[2016-07-20] MEDS: ASPIRIN 81 MG ECTAB PO SCH (08:07)
[2016-07-20] MEDS: FINASTERIDE 5 MG TAB PO SCH (08:08)
[2016-07-20] MEDS: SERTRALINE HCL 50 MG TAB PO SCH (08:08)
[2016-07-20] MEDS: HydrALAZINE 10 MG TAB PO SCH ×3 (08:08→19:48)
[2016-07-20] MEDS: CARVEDILOL 6.25 MG TAB PO SCH ×2 (08:09→19:48)
[2016-07-20] MEDS: CLOPIDOGREL BISULFATE 75 MG TAB PO SCH (08:09)
[2016-07-20] MEDS: NYSTATIN POWDER 15GM BTL EXT SCH (08:09)
[2016-07-20] MEDS: BOOST GLUCOSE CONTROL PO SCH ×3 (08:10→17:48)
[2016-07-20] MEDS: INSULIN GLARGINE SOLOSTAR 100 UNITS/ML 3 ML PEN SC SCH ×2 (09:18→21:37)
[2016-07-20] MEDS: INSULIN ASPART 100 UNITS/ML 3 ML PEN SC SCH ×4 (09:18→21:36)
--- NOTE | 2016-07-20 18:50 | Hospitalist Progress Note ---
Hospitalist Progress Note Date of Service Jul 20, 2016. Subjective Pt evaluation today including: conversation w/ patient, conversation w/ family , physical exam, chart review, lab review, review of studies, review of inpatient medication list I spoke with the patient this am he was feeling about at the same as the previous day. He does have SOB with exertion. This evening I was able to talk to his son which is the patients power of master merchandiser. I explained that the balance between aggressively treating the CHF will have a negative effect on the kidney and by not desiring to have or even consider dialysis, there is not much room for symptomatic improvement from day to day. They are considering hospice care that would focus on comfort in the face of his disease processes but at the same time not giving up on utilizing diuretics and supplemental oxygen from day to day to offer as much stability as possible. Either way, the son reports that the patients memory care program resident has to travel to [place] for the first week of July and the patient will not have coverage at home. Thus they are considering a temporary placement to a nursing facility with the thoughts of returning home when the caregiver returns. They will discuss this further and let me know within the next day. Additional Comments: A 10 system review was performed and all were negative. Positives were placed in the subjective section. Objective Vital Signs Date Time Temp Pulse Resp B/P Pulse Ox O2 Delivery O2 Flow Rate FiO2 07/20/16 15:59 36.4 83 18 152/75 97 Nasal Cannula 2.5 07/20/16 15:41 Nasal Cannula 4.0 07/20/16 15:38 89 16 90 Nasal Cannula 2.0 07/20/16 11:09 73 16 98 Nasal Cannula 4.0 07/20/16 08:30 98 Nasal Cannula 4.0 07/20/16 07:51 36.3 85 18 123/68 98 07/20/16 07:09 79 16 98 Nasal Cannula 4.0 07/20/16 00:00 94 CPAP 4.0 07/19/16 23:31 36.3 75 21 166/99 98 BiPAP 07/19/16 19:41 85 18 160/82 98 Nasal Cannula 4.0 Physical Exam Notes: GEN: Awake, alert, and oriented x 3. Not in acute distress HEENT: Tm's intact, no inflammation, EOMI, PERRLA, MMM Neck: Soft, supple Lungs: Decreased breath sounds at the b/l. with crackles 1/[address] b/l. Heart: REG, nrl S1S2 without murmurs, rubs or gallops Abdomen: Soft, NT, ND, + BS EXT: No C/C +2 pitting edema b/l. NEURO: CN's II-XII grossly intact, non-focal Skin: warm, dry, no rashes PSYCH: pleasant, cooperative. Laboratory Results Last 24 Hours Test 07/19/16 19:45 07/20/16 05:40 07/20/16 05:46 07/20/16 07:38 Bedside Glucose 193 mg/dl 111 mg/dl White Blood Count 9.73 K/uL Red Blood Count 3.57 M/uL Hemoglobin 10.9 g/dL Hematocrit 34.0 % Mean Corpuscular Volume 95.2 fL Mean Corpuscular Hemoglobin 30.5 pg Mean Corpuscular Hemoglobin Concent 32.1 g/dl Platelet Count 271 K/uL Mean Platelet Volume 9.2 fL Neutrophils (%) (Auto) 59.2 % Lymphocytes (%) (Auto) 21.5 % Monocytes (%) (Auto) 8.9 % Eosinophils (%) (Auto) 4.8 % Basophils (%) (Auto) 2.8 % Neutrophils # (Auto) 5.76 K/uL Lymphocytes # (Auto) 2.09 K/uL Monocytes # (Auto) 0.87 K/uL Eosinophils # (Auto) 0.47 K/uL Basophils # (Auto) 0.27 K/uL RDW Standard Deviation 56.5 fL RDW Coefficient of Variation 16.4 % Immature Granulocyte % (Auto) 2.8 % Immature Granulocyte # (Auto) 0.27 K/uL Sodium Level 137 mmol/L Potassium Level 3.7 mmol/L Chloride Level 94 mmol/L Carbon Dioxide Level 34 mmol/L Anion Gap 9.0 mmol/L Blood Urea Nitrogen 40 mg/dl Creatinine 1.40 mg/dl Est Creatinine Clear Calc Drug Dose 41.3 ml/min Estimated GFR () 52.0 Estimated GFR (Non- 44.9 BUN/Creatinine Ratio 28.8 Random Glucose 97 mg/dl Calcium Level 8.6 mg/dl Test 07/20/16 11:59 Bedside Glucose 200 mg/dl Assessment and Plan 1 Acute on chronic systolic and diastolic CHF: discussing with son and patient today giving options of aggresive treatment which would likely include dialysis to hospice care and being comfortable and allowing nature to take its course. the family is planning to discuss further and let me know tomorrow. 2 CKD: stage 4. f/u nephro as outpatient 3 Pleural effusion b/l. 4 COPD: anticipate he will need supplemental oxygen from this point on.. 5 HTN: stable, continue current management 6 DM: stable, continue sliding scale and lantus and pharmacy management 7 disposition: today still in the discussion mode. 8 DVT prophylaxis: heparin 5000 q8h code: Do not resuscitate I will ask palliative care to see the patient to show what options he would have if he wants to be hands off in further treatment of CHF in the face of chronic kidney disease.
[2016-07-21] VITALS (11 sets, daily range): BP systolic 118–154; BP diastolic 71–82; PULSE 69–86; TEMP 35.8–37; O2SAT 95–99
[2016-07-21] MEDS: NITROGLYCERIN OINT 2% 1GM PACKET EXT SCH ×4 (00:31→18:48)
[2016-07-21] MEDS: HEPARIN SOD 5000 UNIT/0.5 ML CARP SQ SCH ×3 (06:24→21:45)
[2016-07-21 06:45] LABS: BASO % 2.2 %; BASO ABS # 0.22 K/uL (0-0.2); COMPLETE YES; EOS % 5.2 %; HEMATOCRIT 33.9 % (42-52); IG% 1.6 %; LYMPH % 17.4 %; LYMPH ABS # 1.75 K/uL (1.2-3.4); MEAN CELL VOLUME 93.9 fL (80-100); MEAN CORPUSCULAR HEMOGLOBIN 29.6 pg (25-34); MEAN CORPUSCULAR HGB CONC 31.6 g/dl (32-36); MEAN PLATELET VOLUME 9.1 fL (7.4-10.4); MONO % 10.4 %; NEUT % 63.2 %; PLATELET COUNT 265 K/uL (130-400); RED BLOOD COUNT 3.61 M/uL (4.7-6.1); WHITE BLOOD COUNT 10.07 K/uL (4.8-10.8)
[2016-07-21 07:12] LABS: BUN/CREATININE RATIO 28.1 (10-20); CALCIUM 8.6 mg/dl (8.5-10.1); CREATININE 1.4 mg/dl (0.60-1.40); POTASSIUM 3.8 mmol/L (3.5-5.1)
[2016-07-21] MEDS: ALBUT/IPRATROP 3MG/0.5MG NEB 3 ML VIAL INH SCH ×4 (07:13→19:16)
[2016-07-21] MEDS: ASPIRIN 81 MG ECTAB PO SCH (08:17)
[2016-07-21] MEDS: CLOPIDOGREL BISULFATE 75 MG TAB PO SCH (08:18)
[2016-07-21] MEDS: CARVEDILOL 6.25 MG TAB PO SCH ×2 (08:18→20:00)
[2016-07-21] MEDS: LORATADINE 10 MG TAB PO SCH (08:18)
[2016-07-21] MEDS: DOCUSATE SODIUM 100 MG CAP PO SCH ×2 (08:18→19:55)
[2016-07-21] MEDS: SERTRALINE HCL 50 MG TAB PO SCH (08:18)
[2016-07-21] MEDS: NYSTATIN POWDER 15GM BTL EXT SCH (08:18)
[2016-07-21] MEDS: FINASTERIDE 5 MG TAB PO SCH (08:18)
[2016-07-21] MEDS: ISOSORBIDE MONONITRATE 60 MG TABCR PO SCH (08:18)
[2016-07-21] MEDS: HydrALAZINE 10 MG TAB PO SCH ×3 (08:19→20:00)
[2016-07-21] MEDS: BOOST GLUCOSE CONTROL PO SCH ×3 (08:20→18:32)
[2016-07-21] MEDS: FUROSEMIDE INJ 60 MG in SYRINGE 0 ML IV SCH ×2 (08:20→19:55)
[2016-07-21] MEDS: INSULIN GLARGINE SOLOSTAR 100 UNITS/ML 3 ML PEN SC SCH ×2 (08:27→21:45)
[2016-07-21] MEDS: INSULIN ASPART 100 UNITS/ML 3 ML PEN SC SCH ×4 (09:49→21:46)
[2016-07-21] MEDS ORDERED: MoRPHine SULFATE 4 MG/ML 1 ML CARP\\VIAL ONE (13:22)
[2016-07-21] MEDS ORDERED: FUROSEMIDE INJ 80 MG in SYRINGE 0 ML IV ONE (14:00)
--- NOTE | 2016-07-21 14:53 | Palliative Care Consultation ---
Consultation Date of Consultation: Jul 21, 2016. Requesting Physician: Dr. Weathers Attending Physician: Dr. Weathers Reason for Consultation: Goals of care History of Present Illness This 85 year old male patient presented to the ED 10 days ago with complaints of shortness of breath and fluid retention for three days. He was recently in the hospital for cellulitis of the left leg, which apparently ended up being gout. He was then sent to rehab and was discharged just four days prior to this admission. He lives at home with a caregiver, Jennifer. Jennifer was apparently the one who noticed the patient's increased lower extremity edema, and given that the patient was short of breath, the patient was taken to the [facility]. Due to the shortage of bed, he was sent here to [facility]. In ED, WBC 13.3 , Na 130, BUN 84, Creat 2.33, troponin 0.06, CXR showed cardiomegaly and congestion as well as small left pleural effusion. The patient follows with Dr. Nice for his kidneys and has stated in the past that he does not want dialysis. Dr. Nice did see patient here and it was determined that the patient was tolerating diuretics, and creatinine even improved over a couple days. However, patient is still short of breath, he was questioning whether or not dialysis would help him symptomatically, but he is unsure if he wants the burden of dialysis. There was some back and forth between comfort/hospice care vs. aggressive measures. Palliative care consulted to assist. I met with the patient in the room. He is hard of hearing, but fully oriented to person, place, time and event. The patient denies any pain, but is short of breath with mildly labored breathing as I stood there with him. We discussed goals of care. The patient explained to me what he knew of dialysis, and told me , "I really didn't want dialysis from the start, but if it's going to make it easier to breathe maybe I should." We talked about dialysis and what it would entail such as going to a facility 3 times/week, being connected to dialysis machine for four hours at time, and the possibility that he may not get complete symptom relief. The patient stated, "That just doesn't sound like something I want. I want to be at home." I presented him with the option of being home with hospice and being treated with medications for symptom relief, but no aggressive measures. The patient said, "That sounds like exactly what I want. Let's do that." I told patient that I had a call out to his son/POAguilar Aparicio and that we could all meet and talk about options to be sure everyone is on the same page. Past Medical/Surgical History Medical History: Left leg cellulitis CHF, EF 40-45% CKD COPD Hyperlipidemia Hypertension Nasal fracture Left pleural effusion Surgical History: Cardiac stenting Tonsillectomy Social History Smoking Status: Former Smoker History of Alcohol Use: No Marital Status: other (Was for 60+ years, in February ) Housing Status: other (lives with Jennifer (Program Clinician)) Review of Systems Constitutional: + weakness, No chills, No fever Respiratory: + cough, + dyspnea on exertion, + shortness of breath, No sputum Cardiac: No chest pain Abdomen: No nausea, No pain, No vomiting Male : No problem reported Allergies Coded Allergies: Amoxicillin (Verified Adverse Reaction, Unknown, NIGHTMARES, 07/12/16) Medications Current Inpatient Medications Medications (Trade) Dose Ordered Sig/Vijay Route Start Time Stop Time Status Last Admin Dose Admin Acetaminophen (Tylenol Tab) 650 mg Q4H PRN PO 07/12/16 04:00 08/11/16 03:59 07/15/16 16:02 650 MG Al Hydrox/Mg Hydrox/Simethicone (Maalox Max Susp) 15 ml Q4H PRN PO 07/12/16 04:00 08/11/16 03:59 Magnesium Hydroxide (Milk Of Magnesia Susp) 30 ml Q12H PRN PO 07/12/16 04:00 08/11/16 03:59 Ondansetron HCl (Zofran Inj) 4 mg Q6H PRN IV 07/12/16 04:00 08/11/16 03:59 Nitroglycerin (Nitrostat Tab) 0.4 mg UD PRN SL 07/12/16 04:00 08/11/16 03:59 Nitroglycerin (Nitroglycerin 2% Oint) 1 inch Q6 EXT 07/12/16 04:15 08/11/16 04:14 07/21/16 12:14 1 INCH Aspirin (Ecotrin Tab) 81 mg DAILY PO 07/12/16 09:00 08/11/16 08:59 07/21/16 08:17 81 MG Clopidogrel Bisulfate (plAVix TAB) 75 mg DAILY PO 07/12/16 09:00 08/11/16 08:59 07/21/16 08:18 75 MG Docusate Sodium (coLACE CAP) 100 mg BID PO 07/12/16 09:00 08/11/16 08:59 07/21/16 08:18 100 MG Finasteride (Proscar Tab) 5 mg DAILY PO 07/12/16 09:00 08/11/16 08:59 07/21/16 08:18 5 MG Hydralazine HCl 10 mg 10 mg TID PO 07/12/16 09:00 08/11/16 08:59 07/21/16 13:14 10 MG Furosemide/Syringe (Lasix Inj/ Syringe) 6 ml @ 4 mls/min BID IV 07/12/16 09:00 08/11/16 08:59 07/21/16 08:20 4 MLS/MIN Insulin Aspart (novoLOG ASPART) SLIDING SCALE If C... ACHS SC 07/12/16 11:00 08/11/16 10:59 07/21/16 13:15 9 UNITS Glucose (Glucose 40% Gel) 15-30 GRAMS 15 GRAMS... UD PRN PO 07/12/16 08:45 08/11/16 08:44 Glucose (Glucose Chew Tab) 4-8 Tablets 4 Tabl... UD PRN PO 07/12/16 08:45 08/11/16 08:44 Dextrose (Dextrose 50% 50ML Syringe) 25-50ML OF 50% DW IV FOR... UD PRN IV 07/12/16 08:45 08/11/16 08:44 Glucagon (Glucagon Inj) 1 mg UD PRN SQ 07/12/16 08:45 08/11/16 08:44 Miscellaneous Information (Consult Glycemic Management Pharmacy) 1 ea UD PRN N/A 07/12/16 09:29 08/11/16 09:28 Polyethylene (Miralax Powder Packet) 17 gm DAILY PRN PO 07/12/16 09:15 08/11/16 09:14 07/14/16 11:23 17 GM Nystatin (Mycostatin Powder) 1 appln DAILY EXT 07/13/16 09:00 08/12/16 08:59 07/21/16 08:18 1 APPLN Zolpidem Tartrate (Ambien Tab) 2.5 mg HS PRN PO 07/12/16 21:45 08/11/16 21:44 Enteral Nutritional Formula (Boost Glucose Control) 0.5 can TIDM PO 07/13/16 07:15 08/12/16 07:14 07/21/16 12:15 0.5 CAN Insulin Glargine (Lantus Solostar Pen) 10 unit BID SC 07/13/16 21:00 08/12/16 20:59 07/21/16 08:27 10 UNIT Isosorbide Mononitrate (Imdur Ext Rel Tab) 120 mg QAM PO 07/15/16 08:00 08/14/16 08:59 07/21/16 08:18 120 MG Loratadine (Claritin Tab) 10 mg QAM PO 07/16/16 08:00 08/15/16 07:59 07/21/16 08:18 10 MG Carvedilol (Coreg Tab) 6.25 mg BID PO 07/15/16 20:00 08/14/16 19:59 07/21/16 08:18 6.25 MG Heparin Sodium (Porcine) (Heparin Sq 5000 Unit/0.5ml) 5,000 unit Q8 SQ 07/16/16 14:00 08/15/16 13:59 07/21/16 13:15 5,000 UNIT Albuterol/ Ipratropium (Duoneb) 3 ml QIDR INH 07/18/16 08:00 08/17/16 07:59 07/21/16 11:38 3 ML Sertraline HCl (Zoloft Tab) 25 mg QAM PO 07/19/16 08:00 08/18/16 07:59 07/21/16 08:18 25 MG Morphine Sulfate (MoRPHine SULFATE INJ) 3 mg Q3HWA PRN IV 07/21/16 13:15 08/04/16 13:14 Physical Exam Date Time Temp Pulse Resp B/P Pulse Ox O2 Delivery O2 Flow Rate FiO2 07/21/16 13:20 76 148/72 07/21/16 11:38 82 16 97 Nasal Cannula 2.0 07/21/16 09:00 Nasal Cannula 3.0 07/21/16 07:30 36.5 75 20 148/77 99 07/21/16 07:13 79 16 97 Nasal Cannula 2.0 07/21/16 06:21 72 118/74 07/21/16 00:33 37.0 74 18 154/82 96 07/21/16 00:33 Nasal Cannula 4.0 07/20/16 21:08 Nasal Cannula 4.0 07/20/16 19:40 83 149/72 07/20/16 19:15 84 16 97 Nasal Cannula 2.0 07/20/16 15:59 36.4 83 18 152/75 97 Nasal Cannula 2.5 07/20/16 15:41 Nasal Cannula 4.0 07/20/16 15:38 89 16 90 Nasal Cannula 2.0 General Appearance: + obese Neck: no JVD, trachea midline Respiratory: + decreased breath sounds, + accessory muscle use (slightly labored breathing), + pertinent finding (2LNC, CPAP at night) Cardiovascular: regular rate, rhythm, + normal peripheral pulses, + pertinent finding (bilateral lower extremity edema) Abdomen: normal bowel sounds, non tender Neurologic/Psychiatric: alert, normal mood/affect, oriented x 3, + pertinent finding (hard of hearing) Laboratory Results Last 24 Hours Test 07/20/16 16:19 07/20/16 19:32 07/21/16 06:10 Bedside Glucose 164 mg/dl 232 mg/dl White Blood Count 10.07 K/uL Red Blood Count 3.61 M/uL Hemoglobin 10.7 g/dL Hematocrit 33.9 % Mean Corpuscular Volume 93.9 fL Mean Corpuscular Hemoglobin 29.6 pg Mean Corpuscular Hemoglobin Concent 31.6 g/dl Platelet Count 265 K/uL Mean Platelet Volume 9.1 fL Neutrophils (%) (Auto) 63.2 % Lymphocytes (%) (Auto) 17.4 % Monocytes (%) (Auto) 10.4 % Eosinophils (%) (Auto) 5.2 % Basophils (%) (Auto) 2.2 % Neutrophils # (Auto) 6.37 K/uL Lymphocytes # (Auto) 1.75 K/uL Monocytes # (Auto) 1.05 K/uL Eosinophils # (Auto) 0.52 K/uL Basophils # (Auto) 0.22 K/uL RDW Standard Deviation 56.5 fL RDW Coefficient of Variation 16.6 % Immature Granulocyte % (Auto) 1.6 % Immature Granulocyte # (Auto) 0.16 K/uL Sodium Level 137 mmol/L Potassium Level 3.8 mmol/L Chloride Level 95 mmol/L Carbon Dioxide Level 33 mmol/L Anion Gap 9.0 mmol/L Blood Urea Nitrogen 39 mg/dl Creatinine 1.40 mg/dl Est Creatinine Clear Calc Drug Dose 41.3 ml/min Estimated GFR () 52.0 Estimated GFR (Non- 44.9 BUN/Creatinine Ratio 28.1 Random Glucose 109 mg/dl Calcium Level 8.6 mg/dl Assessment & Plan Palliative Performance Scale: 40 % Problem list: Shortness of breath Weakness Acute on chronic CHF CKD stage IV COPD Goals of care (Z51.5) Palliative care plan: Discussed with Dr. Weathers, patient, and caregiver Jennifer. Patient expressed to me that his wishes are to be home and be comfortable. After a discussion about dialysis, the patient told me that he would not want dialysis as it is not consistent with his goals of care. Also, I am unsure if dialysis is really clinically indicated at this time as the patient is responsive to diuretics with a stable creatinine below his baseline. I'm hoping to speak with hospitalist and check writer salesperson about this tomorrow, then speak with the patient and his son to confirm goals of care and best treatment plan. If the patient is wanting to go home with hospice, which he tells me is his goal, I would certain begin PRN Roxanol for management of shortness of breath, maybe increase Lasix dosage per nephro and hospitalist. Better plan of care to follow tomorrow. Thank you kindly for this consult. I will continue to follow.
--- NOTE | 2016-07-21 20:05 | Hospitalist Progress Note ---
Hospitalist Progress Note Date of Service Jul 21, 2016. Subjective Pt evaluation today including: conversation w/ patient, conversation w/ family , physical exam, chart review, lab review, review of studies, review of inpatient medication list Patient was having increased SOB as I was there to see patient. I ordered single dose of Lasix and Morphine. I checked back in 40 mins and he was comfortable; not feeling SOB. Son is coming in the morning to visit. Hopefully we can establish for sure what the patients wishes are for further care. Additional Comments: A 10 system review was performed and all were negative. Positives were placed in the subjective section. Objective Vital Signs Date Time Temp Pulse Resp B/P Pulse Ox O2 Delivery O2 Flow Rate FiO2 07/21/16 19:16 80 16 97 Nasal Cannula 2.0 07/21/16 15:25 Nasal Cannula 3.0 07/21/16 15:15 86 16 95 Nasal Cannula 2.0 07/21/16 15:00 36.7 75 22 150/74 99 Nasal Cannula 4.0 07/21/16 13:20 76 148/72 07/21/16 11:38 82 16 97 Nasal Cannula 2.0 07/21/16 09:00 Nasal Cannula 3.0 07/21/16 07:30 36.5 75 20 148/77 99 07/21/16 07:13 79 16 97 Nasal Cannula 2.0 07/21/16 06:21 72 118/74 07/21/16 00:33 37.0 74 18 154/82 96 07/21/16 00:33 Nasal Cannula 4.0 07/20/16 21:08 Nasal Cannula 4.0 Physical Exam Notes: GEN: Awake, alert, and oriented x 3. Not in acute distress HEENT: Tm's intact, no inflammation, EOMI, PERRLA, MMM Neck: Soft, supple Lungs: Decreased breath sounds at the bases, Less crackles than yesterday. Heart: REG, nrl S1S2 without murmurs, rubs or gallops Abdomen: Soft, NT, ND, + BS EXT: No C/C + edema NEURO: CN's II-XII grossly intact, non-focal Skin: warm, dry, no rashes Laboratory Results Last 24 Hours Test 07/21/16 06:10 07/21/16 08:25 07/21/16 11:16 White Blood Count 10.07 K/uL Red Blood Count 3.61 M/uL Hemoglobin 10.7 g/dL Hematocrit 33.9 % Mean Corpuscular Volume 93.9 fL Mean Corpuscular Hemoglobin 29.6 pg Mean Corpuscular Hemoglobin Concent 31.6 g/dl Platelet Count 265 K/uL Mean Platelet Volume 9.1 fL Neutrophils (%) (Auto) 63.2 % Lymphocytes (%) (Auto) 17.4 % Monocytes (%) (Auto) 10.4 % Eosinophils (%) (Auto) 5.2 % Basophils (%) (Auto) 2.2 % Neutrophils # (Auto) 6.37 K/uL Lymphocytes # (Auto) 1.75 K/uL Monocytes # (Auto) 1.05 K/uL Eosinophils # (Auto) 0.52 K/uL Basophils # (Auto) 0.22 K/uL RDW Standard Deviation 56.5 fL RDW Coefficient of Variation 16.6 % Immature Granulocyte % (Auto) 1.6 % Immature Granulocyte # (Auto) 0.16 K/uL Sodium Level 137 mmol/L Potassium Level 3.8 mmol/L Chloride Level 95 mmol/L Carbon Dioxide Level 33 mmol/L Anion Gap 9.0 mmol/L Blood Urea Nitrogen 39 mg/dl Creatinine 1.40 mg/dl Est Creatinine Clear Calc Drug Dose 41.3 ml/min Estimated GFR () 52.0 Estimated GFR (Non- 44.9 BUN/Creatinine Ratio 28.1 Random Glucose 109 mg/dl Calcium Level 8.6 mg/dl Bedside Glucose 131 mg/dl 233 mg/dl Assessment and Plan 1 Acute on chronic systolic and diastolic CHF: Patient tells me that he will decide tomorrow morning on how to proceed with further care. 2 CKD: stage 4. - Creat was 1.4 today. 3 Pleural effusion b/l. 4 COPD: anticipate he will need supplemental oxygen from this point on.. 5 HTN: stable, continue current management 6 DM: stable, continue sliding scale and lantus and pharmacy management 7 disposition: I am hoping we will have solidified this tomorrow morning. 8 DVT prophylaxis: heparin 5000 q8h code: Do not resuscitate
[2016-07-21] MEDS: MoRPHine SULFATE 4 MG/ML 1 ML CARP\\VIAL IV PRN (21:18)
[2016-07-22] VITALS (10 sets, daily range): BP systolic 121–139; BP diastolic 64–75; PULSE 47–80; TEMP 36.3–36.5; O2SAT 96–100
[2016-07-22] MEDS: NITROGLYCERIN OINT 2% 1GM PACKET EXT SCH ×4 (00:46→17:40)
[2016-07-22] MEDS: HEPARIN SOD 5000 UNIT/0.5 ML CARP SQ SCH ×3 (06:11→21:51)
[2016-07-22 06:21] LABS: HEMATOCRIT 35.5 % (42-52); MEAN CELL VOLUME 95.7 fL (80-100); MEAN CORPUSCULAR HEMOGLOBIN 29.6 pg (25-34); MEAN PLATELET VOLUME 9.5 fL (7.4-10.4); PLATELET COUNT 251 K/uL (130-400); RED BLOOD COUNT 3.71 M/uL (4.7-6.1); WHITE BLOOD COUNT 9.79 K/uL (4.8-10.8)
[2016-07-22 07:21] LABS: BUN/CREATININE RATIO 23.3 (10-20); CALCIUM 8.7 mg/dl (8.5-10.1); CREATININE 1.5 mg/dl (0.60-1.40); POTASSIUM 3.9 mmol/L (3.5-5.1)
[2016-07-22] MEDS: ALBUT/IPRATROP 3MG/0.5MG NEB 3 ML VIAL INH SCH ×4 (07:29→19:18)
[2016-07-22] MEDS: FUROSEMIDE INJ 60 MG in SYRINGE 0 ML IV SCH (08:05)
[2016-07-22] MEDS: CLOPIDOGREL BISULFATE 75 MG TAB PO SCH (08:06)
[2016-07-22] MEDS: HydrALAZINE 10 MG TAB PO SCH ×3 (08:06→20:35)
[2016-07-22] MEDS: ISOSORBIDE MONONITRATE 60 MG TABCR PO SCH (08:06)
[2016-07-22] MEDS: LORATADINE 10 MG TAB PO SCH (08:06)
[2016-07-22] MEDS: CARVEDILOL 6.25 MG TAB PO SCH ×2 (08:06→20:35)
[2016-07-22] MEDS: ASPIRIN 81 MG ECTAB PO SCH (08:06)
[2016-07-22] MEDS: DOCUSATE SODIUM 100 MG CAP PO SCH ×2 (08:06→20:35)
[2016-07-22] MEDS: FINASTERIDE 5 MG TAB PO SCH (08:06)
[2016-07-22] MEDS: SERTRALINE HCL 50 MG TAB PO SCH (08:06)
[2016-07-22] MEDS: NYSTATIN POWDER 15GM BTL EXT SCH (08:07)
[2016-07-22] MEDS: BOOST GLUCOSE CONTROL PO SCH ×3 (08:07→17:39)
[2016-07-22] MEDS: INSULIN ASPART 100 UNITS/ML 3 ML PEN SC SCH ×4 (08:57→21:49)
[2016-07-22] MEDS: INSULIN GLARGINE SOLOSTAR 100 UNITS/ML 3 ML PEN SC SCH ×2 (08:58→21:50)
--- NOTE | 2016-07-22 12:04 | Palliative Care Progress Note ---
Palliative Care Progress Note Date of Service Jul 22, 2016. Subjective Pt evaluation today including: conversation w/ family, conversation w/ sales consultant (Dr. Nice, Dr. Weathers) Assessment and Plan Problem list: Shortness of breath Weakness Acute on chronic CHF CKD stage IV COPD Goals of care (Z51.5) Palliative care plan: I spoke with the patient's son/POA, Frank Aparicio, on the phone today. He stated that he and his three brothers all discussed and would like the patient to have a trial of dialysis. I explained that I wanted to speak with the hospitalist and administrative technician about this to see if it is in fact actually indicated at this time. However, regardless, the patient has expressed that he would not want dialysis as it was not consistent with his goals of care to be home and comfortable and that he is concerned the burden may outweigh the benefit. Frank and I discussed dialysis for quite some time, and he was still wanting to pursue it as he said that his father is now saying he'd like to try it. I went and met with Dr. Weathers and Dr. Nice about this patient. Dr. Nice has known this patient for quite some time, and patient has always expressed that he didn't want dialysis. Also, per administrative technician, dialysis is not clinically indicated at this time with a creatinine of 1.5, adequate urine output, and is not on the maximum dose of furosemide. Dr. Nice will explain this to the patient and family. For now, plan is to maximize diuretic therapy and keep patient here through the weekend. I will touch base with the family and patient on Monday. Discharge planing is uncertain at this time. Palliative Performance Scale: 40 % Continued [facility] stay due to: multiple IV medications needed
--- NOTE | 2016-07-22 12:14 | Hospitalist Progress Note ---
Hospitalist Progress Note Date of Service Jul 22, 2016. Subjective Pt evaluation today including: conversation w/ patient, conversation w/ family , physical exam, chart review, lab review, review of studies, conversation w/ senior market intelligence consultant After speaking with the patients son, Sylvain, Dr. Montanou, MILADYS Ralph, and the patient, we are planning to increase diuretics and monitor kidney function. At this point he would not need dialysis. I will ask pulmonology for opinion on the hypoxia and SOB to consider if there is anything other than fluid causing his symptoms. Furthermore, their opinion on whether a thoracentesis would be indicated given the b/l moderate effusions as noted on CT scan. The patient is pleased with this plan as is his son and his caregiver. Additional Comments: A 10 system review was performed and all were negative. Positives were placed in the subjective section. Note patient declined a lujan cath at this time. apparently last time he did have some irritation and bleeding. Objective Vital Signs Date Time Temp Pulse Resp B/P Pulse Ox O2 Delivery O2 Flow Rate FiO2 07/22/16 11:29 78 16 99 Nasal Cannula 4.0 07/22/16 11:12 Nasal Cannula 3.0 07/22/16 07:21 36.3 47 22 139/64 96 Nasal Cannula 4.0 07/22/16 07:17 60 16 96 BiPAP/CPAP 4.0 07/22/16 05:45 72 124/75 07/22/16 05:25 70 124/75 100 07/22/16 00:15 CPAP 4.0 07/21/16 23:24 35.8 69 18 129/71 97 BiPAP 2.0 07/21/16 20:51 Nasal Cannula 3.0 07/21/16 19:55 73 148/80 07/21/16 19:16 80 16 97 Nasal Cannula 2.0 07/21/16 15:25 Nasal Cannula 3.0 07/21/16 15:15 86 16 95 Nasal Cannula 2.0 07/21/16 15:00 36.7 75 22 150/74 99 Nasal Cannula 4.0 07/21/16 13:20 76 148/72 Physical Exam Notes: GEN: Awake, alert, and oriented x 3. Not in acute distress HEENT: Tm's intact, no inflammation, EOMI, PERRLA, MMM Neck: Soft, supple Lungs: decreased breath sounds at the bases b/l. Crackles b/l. Heart: REG, nrl S1S2 without murmurs, rubs or gallops Abdomen: Soft, NT, ND, + BS EXT: No C/C +1 pitting edema at the ankles. NEURO: CN's II-XII grossly intact, non-focal Skin: warm, dry, no rashes PSYCH: pleasant, cooperative. Patient has tendency to be anxious at times and has had a few panic attacks in the hospital. Laboratory Results Last 24 Hours Test 07/21/16 16:19 07/21/16 20:11 07/22/16 05:46 07/22/16 07:36 Bedside Glucose 241 mg/dl 220 mg/dl 114 mg/dl White Blood Count 9.79 K/uL Red Blood Count 3.71 M/uL Hemoglobin 11.0 g/dL Hematocrit 35.5 % Mean Corpuscular Volume 95.7 fL Mean Corpuscular Hemoglobin 29.6 pg Mean Corpuscular Hemoglobin Concent 31.0 g/dl RDW Standard Deviation 58.9 fL RDW Coefficient of Variation 17.0 % Platelet Count 251 K/uL Mean Platelet Volume 9.5 fL Sodium Level 137 mmol/L Potassium Level 3.9 mmol/L Chloride Level 94 mmol/L Carbon Dioxide Level 35 mmol/L Anion Gap 8.0 mmol/L Blood Urea Nitrogen 35 mg/dl Creatinine 1.50 mg/dl Est Creatinine Clear Calc Drug Dose 38.6 ml/min Estimated GFR () 47.8 Estimated GFR (Non- 41.3 BUN/Creatinine Ratio 23.3 Random Glucose 87 mg/dl Calcium Level 8.7 mg/dl Test 07/22/16 11:30 Bedside Glucose 176 mg/dl Assessment and Plan 1 Acute on chronic systolic and diastolic CHF: As kidney function improved, it gives room to increase diuretics to attempt to mobilize some fluid. Lasix increased to 80mg Q8. will follow daily bmp 2 CKD: stage 4. - Creat was 1.5 today. 3 Pleural effusion b/l - ask for pulmonology opinion as to whether thoracentesis would be of benefit. 4 COPD: anticipate he will need supplemental oxygen from this point on.. 5 HTN: stable, continue current management 6 DM: stable, continue sliding scale and lantus and pharmacy management 7 Anxiety/panic attacks - These have lessened according to caregiver. I had started him on Zoloft 25mg for 3 days and he appears to be tolerating. I will increase this now to 50mg daily. 8 DVT prophylaxis: heparin 5000 q8h code: Do not resuscitate Discharge planning: other (I anticipate patient to be here through the weekend as we are more agressively diuresing him. )
[2016-07-22] MEDS: MoRPHine SULFATE 4 MG/ML 1 ML CARP\\VIAL IV PRN (12:20)
--- NOTE | 2016-07-22 13:06 | Pharmacy Progress Note ---
Glycemic: Assessment & Plan Date of Service Jul 22, 2016. Assessment & Plan The patient is currently receiving about 51 units of insulin per day. BSGs ranging 87 - 241 mg/dl over the past 24hrs. Likely had readings in the 200s yesterday due to carbs not covered in Boost supplement. BSGs better today. Test 07/21/16 16:19 07/21/16 20:11 07/22/16 05:46 07/22/16 07:36 Bedside Glucose 241 mg/dl (70-99) 220 mg/dl (70-99) 114 mg/dl (70-99) Random Glucose 87 mg/dl (70-99) Test 07/22/16 11:30 Bedside Glucose 176 mg/dl (70-99) * Basal insulin: Lantus 10 units every 12 hours (1/2 dose for BSG < 100mg/dL) * Correctional Insulin: Novolog Correction per scale ACHS Goal Range: Low 100 mg/dL - High 140 mg/dL Correction Factor: 20 mg/dL/unit * Prandial insulin: Per carb ratio of 1 unit per 5 grams CHO consumed No changes needed to inpatient regimen at this time. Pharmacy will continue to monitor patient daily and write orders per [facility] inpatient glycemic control protocol. Thanks. * Please note that the plan above was derived based on current level of insulin resistance and hospital stress. These recommendations are appropriate for inpatient admission only. Plan of care upon discharge will need to be reassessed to avoid potential outpatient hypo/hyperglycemia.
[2016-07-22] MEDS: FUROSEMIDE INJ 80 MG in SYRINGE 0 ML IV SCH ×2 (13:22→21:52)
--- NOTE | 2016-07-22 13:55 | Nephrology Progress Note ---
Nephrology Progress Note Date of Service: Jul 22, 2016. Subjective 85 yo male with chf and ckd stage 4 who has not wanted dialysis in the past. during admission continues to have rales and signs of chf however overall volume status does look better. rash which developed during the hospital admission has since improved. pt currently on lasix 60 iv bid. pt spoke to his eldest son and is acceptable of dialysis if necessary. creatinine though during the admission has improved and not worsened and is currently 1.5. Objective Date Time Temp Pulse Resp B/P Pulse Ox O2 Delivery O2 Flow Rate FiO2 07/22/16 11:29 78 16 99 Nasal Cannula 4.0 07/22/16 11:12 Nasal Cannula 3.0 07/22/16 07:21 36.3 47 22 139/64 96 Nasal Cannula 4.0 07/22/16 07:17 60 16 96 BiPAP/CPAP 4.0 07/22/16 05:45 72 124/75 07/22/16 05:25 70 124/75 100 07/22/16 00:15 CPAP 4.0 07/21/16 23:24 35.8 69 18 129/71 97 BiPAP 2.0 07/21/16 20:51 Nasal Cannula 3.0 07/21/16 19:55 73 148/80 07/21/16 19:16 80 16 97 Nasal Cannula 2.0 07/21/16 15:25 Nasal Cannula 3.0 07/21/16 15:15 86 16 95 Nasal Cannula 2.0 07/21/16 15:00 36.7 75 22 150/74 99 Nasal Cannula 4.0 Physical Exam: General-aaox3, obese Eyes-no scleral icterus ENT-mmm Neck-supple Lungs-basilar rales Heart-regular Abdomen-bs+ s/nt/nd Extremities-no edema Neuro-nonfocal Derm-rash improved Current Inpatient Medications Medications (Trade) Dose Ordered Sig/Vijay Route Start Time Stop Time Status Last Admin Dose Admin Acetaminophen (Tylenol Tab) 650 mg Q4H PRN PO 07/12/16 04:00 08/11/16 03:59 07/15/16 16:02 650 MG Al Hydrox/Mg Hydrox/Simethicone (Maalox Max Susp) 15 ml Q4H PRN PO 07/12/16 04:00 08/11/16 03:59 Magnesium Hydroxide (Milk Of Magnesia Susp) 30 ml Q12H PRN PO 07/12/16 04:00 08/11/16 03:59 Ondansetron HCl (Zofran Inj) 4 mg Q6H PRN IV 07/12/16 04:00 08/11/16 03:59 Nitroglycerin (Nitrostat Tab) 0.4 mg UD PRN SL 07/12/16 04:00 08/11/16 03:59 Nitroglycerin (Nitroglycerin 2% Oint) 1 inch Q6 EXT 07/12/16 04:15 08/11/16 04:14 07/22/16 12:20 1 INCH Aspirin (Ecotrin Tab) 81 mg DAILY PO 07/12/16 09:00 08/11/16 08:59 07/22/16 08:06 81 MG Clopidogrel Bisulfate (plAVix TAB) 75 mg DAILY PO 07/12/16 09:00 08/11/16 08:59 07/22/16 08:06 75 MG Docusate Sodium (coLACE CAP) 100 mg BID PO 07/12/16 09:00 08/11/16 08:59 07/22/16 08:06 100 MG Finasteride (Proscar Tab) 5 mg DAILY PO 07/12/16 09:00 08/11/16 08:59 07/22/16 08:06 5 MG Hydralazine HCl (Apresoline Tab) 10 mg TID PO 07/12/16 09:00 08/11/16 08:59 07/22/16 13:22 10 MG Insulin Aspart (novoLOG ASPART) SLIDING SCALE If C... ACHS SC 07/12/16 11:00 08/11/16 10:59 07/22/16 12:24 8 UNITS Glucose (Glucose 40% Gel) 15-30 GRAMS 15 GRAMS... UD PRN PO 07/12/16 08:45 08/11/16 08:44 Glucose (Glucose Chew Tab) 4-8 Tablets 4 Tabl... UD PRN PO 07/12/16 08:45 08/11/16 08:44 Dextrose (Dextrose 50% 50ML Syringe) 25-50ML OF 50% DW IV FOR... UD PRN IV 07/12/16 08:45 08/11/16 08:44 Glucagon (Glucagon Inj) 1 mg UD PRN SQ 07/12/16 08:45 08/11/16 08:44 Miscellaneous Information (Consult Glycemic Management Pharmacy) 1 ea UD PRN N/A 07/12/16 09:29 08/11/16 09:28 Polyethylene (Miralax Powder Packet) 17 gm DAILY PRN PO 07/12/16 09:15 08/11/16 09:14 07/14/16 11:23 17 GM Nystatin (Mycostatin Powder) 1 appln DAILY EXT 07/13/16 09:00 08/12/16 08:59 07/22/16 08:07 1 APPLN Zolpidem Tartrate (Ambien Tab) 2.5 mg HS PRN PO 07/12/16 21:45 08/11/16 21:44 Enteral Nutritional Formula (Boost Glucose Control) 0.5 can TIDM PO 07/13/16 07:15 08/12/16 07:14 07/22/16 12:21 0.5 CAN Insulin Glargine (Lantus Solostar Pen) 10 unit BID SC 07/13/16 21:00 08/12/16 20:59 07/22/16 08:58 10 UNIT Isosorbide Mononitrate (Imdur Ext Rel Tab) 120 mg QAM PO 07/15/16 08:00 08/14/16 08:59 07/22/16 08:06 120 MG Loratadine (Claritin Tab) 10 mg QAM PO 07/16/16 08:00 08/15/16 07:59 07/22/16 08:06 10 MG Carvedilol (Coreg Tab) 6.25 mg BID PO 07/15/16 20:00 08/14/16 19:59 07/22/16 08:06 6.25 MG Heparin Sodium (Porcine) (Heparin Sq 5000 Unit/0.5ml) 5,000 unit Q8 SQ 07/16/16 14:00 08/15/16 13:59 07/22/16 13:23 5,000 UNIT Albuterol/ Ipratropium (Duoneb) 3 ml QIDR INH 07/18/16 08:00 08/17/16 07:59 07/22/16 11:20 3 ML Morphine Sulfate 3 mg 3 mg Q3HWA PRN IV 07/21/16 13:15 08/04/16 13:14 07/22/16 12:20 3 MG Furosemide/Syringe (Lasix Inj/ Syringe) 8 ml @ 4 mls/min Q8 IV 07/22/16 14:00 08/21/16 13:59 07/22/16 13:22 4 MLS/MIN Sertraline HCl (Zoloft Tab) 50 mg QAM PO 07/23/16 08:00 08/22/16 07:59 Last 24 Hours Test 07/21/16 16:19 07/21/16 20:11 07/22/16 05:46 07/22/16 07:36 Bedside Glucose 241 mg/dl 220 mg/dl 114 mg/dl White Blood Count 9.79 K/uL Red Blood Count 3.71 M/uL Hemoglobin 11.0 g/dL Hematocrit 35.5 % Mean Corpuscular Volume 95.7 fL Mean Corpuscular Hemoglobin 29.6 pg Mean Corpuscular Hemoglobin Concent 31.0 g/dl RDW Standard Deviation 58.9 fL RDW Coefficient of Variation 17.0 % Platelet Count 251 K/uL Mean Platelet Volume 9.5 fL Sodium Level 137 mmol/L Potassium Level 3.9 mmol/L Chloride Level 94 mmol/L Carbon Dioxide Level 35 mmol/L Anion Gap 8.0 mmol/L Blood Urea Nitrogen 35 mg/dl Creatinine 1.50 mg/dl Est Creatinine Clear Calc Drug Dose 38.6 ml/min Estimated GFR () 47.8 Estimated GFR (Non- 41.3 BUN/Creatinine Ratio 23.3 Random Glucose 87 mg/dl Calcium Level 8.7 mg/dl Test 07/22/16 11:30 Bedside Glucose 176 mg/dl Assessment & Plan CKD stage 4-creatinine improved from mid 2s to 1.5 in setting of iv diuretics. still with signs of volume overload. in the past, has never wanted dialysis but now has changed his mind and is accepting of dialysis if needed. currently , does not meet criteria for dialysis. would increase lasix to 80 iv bid and continue aggressive diuretics till creatinine above 2 at [facility] time could either reduce the dose or add albumin with the lasix. would repeat chest xray on monday and if still sob despite aggressive diuretics-question if any role for bronch to see if any other contributing causes to sob other than volume overload. case discussed with primary hospitalist and palliative care who are in agreement.
--- NOTE | 2016-07-22 15:22 | PULMONARY CONSULTATION ---
DATE OF CONSULTATION: 07/22/2016 DATE OF CONSULTATION: 07/22/2016. TIME: 2:20 p.m. HISTORY OF PRESENT ILLNESS: The patient was seen in room 407. He is an 85-year-old male who was initially admitted to [facility] on July 12 with shortness of breath and increasing edema. He had been hospitalized at [place] in May with gout and possibly cellulitis. He then went to a rehab facility. He was only out of rehab for a few days when he presented with the above-mentioned complaints. He has been here for 10 days. He is generally doing better. He is less short of breath than he had been. The patient is somewhat sleepy at the time of this exam. His son and his caregiver were present during my examination. Apparently at home the patient stays on one floor. He almost never goes up to the second floor and there is a chair lift if he would need to go up. He uses a walker to assist with getting around. He has had some degree of chronic shortness of breath. The patient for about 2 years has had a daily cough. This is productive of mucus that he describes as thick. He states just once he saw a speck of blood. The mucus at times is green in color. He describes it as heavy and thick. He did not cough at all during my exam. The patient has been gradually improving. He has been getting treated for congestive heart failure. Nephrology has been following the patient because of chronic renal disease. His peripheral edema apparently is much better than it had been. The patient is not having chest pains. He denies chills, fevers or sweats. His energy level is low. With regards to his past pulmonary history the patient and his son denied having COPD, although that is mentioned throughout the chart. He is not taking any breathing medicines at home. He does have a history of a chronic cough as noted. PAST SURGICAL HISTORY: 1. Cardiac stent. 2. Coronary artery bypass graft 1982. 3. Tonsillectomy. 4. Right and left cataract surgery. PAST MEDICAL HISTORY: 1. Hayfever. 2. Hypertension. 3. Congestive heart failure. 4. Diabetes. 5. Coronary artery disease. 6. Prior [place]. 7. Hyperlipidemia. 8. Chronic kidney disease. 9. BPH. 10. Sleep apnea diagnosed May 2016 and being treated with BiPAP, although the pressures are unknown. 11. Hayfever. 12. Gout. SOCIAL HISTORY: The patient quit smoking in 1968. Previously he smoked up to 4 packs per day for 19 years. ALLERGIES: THERE ARE LISTED ALLERGIES TO AMOXICILLIN, but reportedly it caused nightmares. If so, this would not be a true allergy. 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 FAMILY HISTORY: Noncontributory in light of the patient's age of 85 years. MEDICATIONS AT HOME: 1. Allopurinol 300 mg daily. 2. Aspirin 81 mg daily. 3. Clopidogrel 75 mg daily. 4. Docusate b.i.d. 5. Vitamin D2 once weekly. 6. Finasteride 5 mg daily. 7. Furosemide 20 mg 3 tabs b.i.d. 8. Glipizide 10 mg b.i.d. 9. Hydralazine 10 mg t.i.d. 10. Isosorbide mononitrate 120 mg daily. 11. Januvia 50 mg daily. REVIEW OF SYSTEMS: In addition to the above-mentioned complaints, the patient's bowels have some degree of constipation. It typically takes 2 days for him to have a bowel movement. He feels distended in the abdomen. He answered yes to that question after I found him distended on my exam. He states he is not belching much and he does not have much flatulence. He is not complaining of abdominal pain. The remainder of the review of systems is otherwise negative except as noted above. PHYSICAL EXAMINATION: GENERAL: Mr. Aparicio is a pleasant 85-year-old male who was cooperative. He was somewhat lethargic but aroused easily. He was oriented. He was able to answer questions appropriately. His son reports that he had some morphine relatively shortly before I had seen the patient. HEAD, EYES, EARS, NOSE, AND THROAT: Eye exam shows the pupils were myotic. Implants were noted. Nares were unremarkable. Mouth exam showed a Mallampati grade 3. NECK: Palpation of the neck reveals no lymph nodes. The neck veins could not be well assessed. He has a large circumference to his neck. CHEST: Inspection of the chest reveals a scar on the anterior chest from prior bypass. The cardiac rate is 78 per minute. Cardiac rhythm was somewhat irregular. The blood pressure today is 139/64. Respiratory rate is 16 breaths per minute. He is breathing a little shallow, but he did have morphine. Oxygen saturation was 96% on 4 liters. He does have rales bilaterally posteriorly. These would be moderate. There are diminished breath sounds at the lung bases. ABDOMEN: Appears distended. This was especially noted in the upper abdomen. There is marked tympany to percussion. Bowel sounds were sluggish but were present. There was no tenderness to palpation. EXTREMITIES: Reveals +3 edema of the left lower leg and ankle and +2 edema of the right lower leg and ankle. There was no cyanosis or clubbing. LABORATORY DATA: Chest x-ray done on admission shows interstitial thickening suggesting pulmonary edema with suspected small bilateral pleural effusions. The patient did have a lung scan done on 07/19/2016 and the findings were indeterminant. No large segmental perfusion defect was seen. CAT scan of the chest done on the showed what appeared to be tracheomalacia. His airway showed compression with decreased AP diameter of the trachea. Cardiomegaly and coronary artery calcifications were seen. Mediastinal lymph nodes were borderline, although the study was not done with dye. He had pleural effusions that I would consider small bilaterally. It was slightly larger on the right than the left. White count today is 9.79. Hemoglobin 11. Platelets 251,000. INR was 1.1. D-dimer was 1240. Urinalysis on admission was unremarkable. Blood gas done back on 07/18/2016 showed a pH of 7.48 with a pCO2 of 47 and a pO2 of 71 done with 10 liters of oxygen. Electrolytes today show sodium 137, potassium 3.9, chloride 94, bicarbonate 35. BUN was 35 with a creatinine of 1.5. His creatinine had been 2.3 upon admission. The BUN had been 84 upon admission. Nasal swab for MRSA was negative. IMPRESSIONS: 1. Congestive heart failure. 2. Bilateral pleural effusions. 3. Chronic bronchitis. 4. Obstructive sleep apnea. 5. Obesity. 6. Chronic kidney disease. 7. Abdominal distention. COMMENTS: The patient is a bit difficult to assess. He is obviously better than when he first presented. He has multiorgan disease including cardiac, pulmonary, and renal. While there is no history of COPD, his history of daily cough which is productive in nature for 2 years would be suggestive for chronic bronchitis. He has sleep apnea diagnosed recently. He has had some difficulty adapting to the BiPAP. Apparently, he has done better in the hospital. I am surprised that his respiratory status worsened despite being on BiPAP. His effusions are relatively small, although he has a fairly large man. In the upright position, one can only see fluid right at the very bottom. In light of his relatively small quantity I do not advise thoracentesis at present. I think it would be reasonable to do a flat plate of the abdomen to check on the abdominal distention that on exam reveals quite a bit of tympany. Review of the patient's medicines shows that he is on furosemide 80 mg IV q8 hours. He is on DuoNebs q.i.d. He has prophylactic heparin 5000 units q. 8 hours. The other medicines are his baseline medicines for his various problems that he takes regularly. If he goes to a rehab facility would consider continuing the breathing treatments. It is difficult to determine if they are helping or not, but overall his status is improved as per his son and the patient himself. Thank you very much for asking me to assist in his care.
--- NOTE | 2016-07-22 16:15 | DIAGNOSTIC IMAGING REPORT ---
ABDOMEN 2VIEW W/PA CHEST RTN CLINICAL HISTORY: abdominal distention SHORTNESS OF BREATH COMPARISON STUDY: 07/15/2016 FINDINGS: The erect chest reveals cardiac enlargement. There are postsurgical changes of midline sternotomy. There is bilateral interstitial edema. There are small bilateral pleural effusions.] Supine views the abdomen reveal gas within both large and small bowel loops. There is moderate right chronic stool. There are no transition zones indicate bowel obstruction. There are right upper quadrant calcifications, likely representing gallbladder calculi. Degenerative changes are present within the lumbar spine. IMPRESSION: 1. Radiographic evidence of congestive failure with interstitial edema and small bilateral pleural effusions 2. Cholelithiasis 3. No evidence of bowel obstruction. No evidence of free air. Electronically signed by: Destin Burdick M.D. 07/22/2016 4:14 PM Dictated Date/Time: 07/22/2016 4:12 PM
[2016-07-23] VITALS (8 sets, daily range): BP systolic 104–156; BP diastolic 68–88; PULSE 64–77; TEMP 36.4–36.7; O2SAT 96–100
[2016-07-23] MEDS: NITROGLYCERIN OINT 2% 1GM PACKET EXT SCH ×4 (00:03→17:25)
[2016-07-23 06:01] LABS: BUN/CREATININE RATIO 24.4 (10-20); CALCIUM 8.5 mg/dl (8.5-10.1); CREATININE 1.4 mg/dl (0.60-1.40); POTASSIUM 3.8 mmol/L (3.5-5.1)
[2016-07-23] MEDS: FUROSEMIDE INJ 80 MG in SYRINGE 0 ML IV SCH ×3 (06:16→22:16)
[2016-07-23] MEDS: HEPARIN SOD 5000 UNIT/0.5 ML CARP SQ SCH ×3 (06:22→20:55)
[2016-07-23] MEDS: ALBUT/IPRATROP 3MG/0.5MG NEB 3 ML VIAL INH SCH ×4 (07:15→19:22)
[2016-07-23] MEDS: LORATADINE 10 MG TAB PO SCH (07:48)
[2016-07-23] MEDS: ASPIRIN 81 MG ECTAB PO SCH (07:48)
[2016-07-23] MEDS: HydrALAZINE 10 MG TAB PO SCH ×3 (07:49→20:49)
[2016-07-23] MEDS: SERTRALINE HCL 50 MG TAB PO SCH (07:49)
[2016-07-23] MEDS: CLOPIDOGREL BISULFATE 75 MG TAB PO SCH (07:49)
[2016-07-23] MEDS: DOCUSATE SODIUM 100 MG CAP PO SCH ×2 (07:49→20:49)
[2016-07-23] MEDS: FINASTERIDE 5 MG TAB PO SCH (07:49)
[2016-07-23] MEDS: ISOSORBIDE MONONITRATE 60 MG TABCR PO SCH (07:49)
[2016-07-23] MEDS: CARVEDILOL 6.25 MG TAB PO SCH ×2 (07:49→20:49)
[2016-07-23] MEDS: BOOST GLUCOSE CONTROL PO SCH ×3 (07:50→17:00)
[2016-07-23] MEDS: NYSTATIN POWDER 15GM BTL EXT SCH (07:50)
[2016-07-23] MEDS: MAGNESIUM HYDROXIDE SUSP 30 ML UDC PO PRN ×2 (07:51→20:42)
[2016-07-23] MEDS: POLYETHYLENE (MIRALAX) 17 GM PACK PO PRN (07:51)
[2016-07-23] MEDS: INSULIN GLARGINE SOLOSTAR 100 UNITS/ML 3 ML PEN SC SCH ×2 (07:58→20:54)
--- NOTE | 2016-07-23 08:50 | Hospitalist Progress Note ---
Hospitalist Progress Note Date of Service Jul 23, 2016. Subjective Pt evaluation today including: conversation w/ patient, physical exam, chart review, lab review, review of studies, review of inpatient medication list Patient reports feeling "OK'. He does not complain of being SOB or having anxiety or panic feeling. He has diuresed 500ml in the past 24 hrs. No changes at this time. Additional Comments: A 10 system review was performed and all were negative. Positives were placed in the subjective section. Objective Vital Signs Date Time Temp Pulse Resp B/P Pulse Ox O2 Delivery O2 Flow Rate FiO2 07/23/16 07:30 36.4 77 20 153/78 100 4.0 07/23/16 07:15 70 16 98 BiPAP/CPAP 4.0 07/23/16 06:22 75 116/72 07/22/16 23:59 CPAP 4.0 07/22/16 23:35 36.3 67 20 134/66 97 BiPAP 4.0 07/22/16 20:06 36.3 80 20 121/73 99 Nasal Cannula 4.0 07/22/16 20:00 BiPAP 4.0 07/22/16 19:18 76 16 97 Nasal Cannula 4.0 07/22/16 16:11 Nasal Cannula 4.0 07/22/16 15:39 36.5 67 20 123/68 98 Nasal Cannula 4.0 07/22/16 15:29 67 16 98 Nasal Cannula 4.0 07/22/16 11:29 78 16 99 Nasal Cannula 4.0 07/22/16 11:12 Nasal Cannula 3.0 Physical Exam Notes: GEN: Awake, alert, and oriented x 3. Not in acute distress HEENT: Tm's intact, no inflammation, EOMI, PERRLA, MMM Neck: Soft, supple Lungs: Decreased breath sounds at the bases b/l. Just a few crackles b/l. Less than I have heard this week. Heart: REG, nrl S1S2 without murmurs, rubs or gallops Abdomen: Soft, NT, ND, + BS EXT: No C/C +1 pitting edema foot and ankle. NEURO: CN's II-XII grossly intact, non-focal Skin: warm, dry, no rashes PSYCH: pleasant, cooperative. Laboratory Results Last 24 Hours Test 07/22/16 11:30 07/22/16 16:26 07/22/16 20:32 07/23/16 05:10 Bedside Glucose 176 mg/dl 161 mg/dl 229 mg/dl Sodium Level 135 mmol/L Potassium Level 3.8 mmol/L Chloride Level 94 mmol/L Carbon Dioxide Level 35 mmol/L Anion Gap 6.0 mmol/L Blood Urea Nitrogen 34 mg/dl Creatinine 1.40 mg/dl Est Creatinine Clear Calc Drug Dose 41.3 ml/min Estimated GFR () 52.0 Estimated GFR (Non- 44.9 BUN/Creatinine Ratio 24.4 Random Glucose 111 mg/dl Calcium Level 8.5 mg/dl Assessment and Plan 1 Acute on chronic systolic and diastolic CHF: Lasix 80mg Q8. will follow daily bmp, creat is holding steady. 2 CKD: stage 4. - Creat 1.4. 3 Pleural effusion b/l - reported as small on the CXR no indication for tap. 4 COPD: anticipate he will need supplemental oxygen and nebs from this point on.. 5 HTN: stable, continue current management 6 DM: stable, continue sliding scale and lantus and pharmacy management 7 Anxiety/panic attacks - No problems with this overnight. Zoloft is at 50mg daily. 8 DVT prophylaxis: heparin 5000 q8h code: Do not resuscitate Plan to diurese over the weekend and monitor kidney function. With anticipation of discharge early in the week, he will need to be placed temporarily as his caregiver ins traveling out of the area for a few weeks.
[2016-07-23] MEDS: INSULIN ASPART 100 UNITS/ML 3 ML PEN SC SCH ×4 (09:13→20:54)
--- NOTE | 2016-07-23 13:31 | PULMONARY PROGRESS NOTE ---
DATE: 07/23/2016 DATE: 07/23/2016. TIME: 1:10 p.m. SUBJECTIVE: The patient complains of shortness of breath. He states it started about an hour ago. His son was present during this evaluation. He did not think the patient looked different than before. He has had some coughing, but with no mucus production. The patient is not complaining otherwise. Both times I have seen him he has been very pleasant. OBJECTIVE: VITAL SIGNS: Temperature is 36.4. He has a large neck. No lymph nodes are palpable. Heart rate is 70 beats per minute. The rhythm was regular. LUNG: Gordon revealed mild rales posteriorly bilaterally. These are unchanged from yesterday's exam. Oxygen saturation was 98% on 4 liters. The patient did not appear in any distress. VITAL SIGNS: Blood pressure 153/78. ABDOMEN: Remains obese. He still has some tympany to percussion. EXTREMITIES: Show bilateral edema greater on the left than the right. LABORATORY DATA: Abdominal x-ray revealed gas within the large and small bowel loops. There was moderate right stool which was described as chronic. No evidence of bowel obstruction was seen. Gallbladder calculi are suggested. Chest x-ray suggested CHF with interstitial edema and small effusions as had been seen prior. Blood sugar this morning was 177. No other labs were available today. IMPRESSIONS: 1. Congestive heart failure. 2. Bilateral pleural effusions. 3. Chronic bronchitis. 4. Obstructive sleep apnea. 5. Obesity. 6. Chronic kidney disease. 7. Increased abdominal gas. COMMENTS: The patient seems reasonably stable. As noted on yesterday's consult, I do not feel that he needs thoracentesis at present. I would continue the neb treatments as I believe they are helping him somewhat. His prognosis is obviously very guarded.
[2016-07-24] VITALS (7 sets, daily range): BP systolic 110–135; BP diastolic 59–81; PULSE 61–73; TEMP 36.3; O2SAT 98–100
[2016-07-24] MEDS: NITROGLYCERIN OINT 2% 1GM PACKET EXT SCH ×4 (00:29→17:35)
[2016-07-24] MEDS: FUROSEMIDE INJ 80 MG in SYRINGE 0 ML IV SCH ×3 (05:43→21:44)
[2016-07-24] MEDS: HEPARIN SOD 5000 UNIT/0.5 ML CARP SQ SCH ×3 (05:44→21:06)
[2016-07-24 07:10] LABS: BUN/CREATININE RATIO 22.9 (10-20); CALCIUM 8.6 mg/dl (8.5-10.1); CREATININE 1.4 mg/dl (0.60-1.40); POTASSIUM 4.2 mmol/L (3.5-5.1)
[2016-07-24] MEDS: ALBUT/IPRATROP 3MG/0.5MG NEB 3 ML VIAL INH SCH ×2 (07:21→11:31)
[2016-07-24] MEDS: CLOPIDOGREL BISULFATE 75 MG TAB PO SCH (08:12)
[2016-07-24] MEDS: HydrALAZINE 10 MG TAB PO SCH ×3 (08:12→20:56)
[2016-07-24] MEDS: CARVEDILOL 6.25 MG TAB PO SCH ×2 (08:12→20:57)
[2016-07-24] MEDS: ISOSORBIDE MONONITRATE 60 MG TABCR PO SCH (08:12)
[2016-07-24] MEDS: LORATADINE 10 MG TAB PO SCH (08:13)
[2016-07-24] MEDS: ASPIRIN 81 MG ECTAB PO SCH (08:13)
[2016-07-24] MEDS: FINASTERIDE 5 MG TAB PO SCH (08:13)
[2016-07-24] MEDS: DOCUSATE SODIUM 100 MG CAP PO SCH ×2 (08:13→20:56)
[2016-07-24] MEDS: SERTRALINE HCL 50 MG TAB PO SCH (08:13)
[2016-07-24] MEDS: BOOST GLUCOSE CONTROL PO SCH ×3 (08:14→17:32)
[2016-07-24] MEDS: MAGNESIUM HYDROXIDE SUSP 30 ML UDC PO PRN (08:18)
[2016-07-24] MEDS: POLYETHYLENE (MIRALAX) 17 GM PACK PO PRN (08:18)
[2016-07-24] MEDS: NYSTATIN POWDER 15GM BTL EXT SCH (08:20)
[2016-07-24] MEDS: INSULIN ASPART 100 UNITS/ML 3 ML PEN SC SCH ×4 (08:52→21:05)
[2016-07-24] MEDS: INSULIN GLARGINE SOLOSTAR 100 UNITS/ML 3 ML PEN SC SCH ×2 (08:52→21:05)
[2016-07-24] MEDS: MoRPHine SULFATE 4 MG/ML 1 ML CARP\\VIAL IV PRN ×2 (12:34→22:17)
--- NOTE | 2016-07-24 13:06 | Pharmacy Progress Note ---
Glycemic: Assessment & Plan Date of Service Jul 24, 2016. Assessment & Plan The patient is currently receiving 50 units of insulin per day. BSGs ranging 94 - 263 mg/dl over the past 24hrs. Overall BSGs pretty well controlled, except for 263mg/dL prior to lunch today. Test 07/23/16 16:37 07/23/16 20:05 07/24/16 05:07 07/24/16 07:53 Bedside Glucose 114 mg/dl (70-99) 202 mg/dl (70-99) 111 mg/dl (70-99) Random Glucose 94 mg/dl (70-99) Test 07/24/16 11:57 Bedside Glucose 263 mg/dl (70-99) * Basal insulin: Lantus 10 units every 12 hours * Correctional Insulin: Novolog Correction per scale ACHS Goal Range: Low 100 mg/dL - High 140 mg/dL Correction Factor: 20 mg/dL/unit * Prandial insulin: Per carb ratio of 1 unit per 5 grams CHO consumed No changes needed to inpatient regimen at this time. Pharmacy will continue to monitor patient daily and write orders per [facility] inpatient glycemic control protocol. Thanks. * Please note that the plan above was derived based on current level of insulin resistance and hospital stress. These recommendations are appropriate for inpatient admission only. Plan of care upon discharge will need to be reassessed to avoid potential outpatient hypo/hyperglycemia.
[2016-07-24] MEDS ORDERED: IPRATROPIUM BROMIDE/ALBUTEROL respimat INH INH SCH (16:00)
[2016-07-24] MEDS: IPRATROPIUM BROMIDE/ALBUTEROL respimat INH INH SCH ×2 (17:34→20:57)
--- NOTE | 2016-07-24 19:11 | Hospitalist Progress Note ---
Hospitalist Progress Note Date of Service Jul 24, 2016. Subjective Pt evaluation today including: conversation w/ patient, conversation w/ family , physical exam, chart review, lab review, review of studies, review of inpatient medication list Doing well, No anxiety or panic attacks. Diuresis continues. Additional Comments: A 10 system review was performed and all were negative. Positives were placed in the subjective section. Objective Vital Signs Date Time Temp Pulse Resp B/P Pulse Ox O2 Delivery O2 Flow Rate FiO2 07/24/16 16:34 Nasal Cannula 3.0 07/24/16 15:13 36.3 70 18 131/74 98 Nasal Cannula 4.0 07/24/16 11:43 Nasal Cannula 3.0 07/24/16 11:31 73 14 98 Nasal Cannula 4.0 07/24/16 07:42 36.3 70 20 135/81 100 Nasal Cannula 4.0 07/24/16 07:21 73 16 98 Nasal Cannula 4.0 07/24/16 05:49 61 125/61 07/24/16 00:11 36.3 69 18 110/59 98 BiPAP 4.0 07/23/16 23:59 BiPAP 4.0 07/23/16 20:45 64 156/88 07/23/16 20:00 Nasal Cannula 4.0 07/23/16 19:22 74 16 96 Nasal Cannula 4.0 Physical Exam Notes: GEN: Awake, alert, and oriented x 3. Not in acute distress HEENT: Tm's intact, no inflammation, EOMI, PERRLA, MMM Neck: Soft, supple Lungs: Decreased breath sounds at the bases b/l. Just a few crackles b/l. Heart: REG, nrl S1S2 without murmurs, rubs or gallops Abdomen: Soft, NT, ND, + BS EXT: No C/C +1 pitting edema foot and ankle. NEURO: CN's II-XII grossly intact, non-focal Skin: warm, dry, no rashes PSYCH: pleasant, cooperative. Laboratory Results Last 24 Hours Test 07/23/16 20:05 07/24/16 05:07 07/24/16 07:53 07/24/16 11:57 Bedside Glucose 202 mg/dl 111 mg/dl 263 mg/dl Sodium Level 135 mmol/L Potassium Level 4.2 mmol/L Chloride Level 92 mmol/L Carbon Dioxide Level 36 mmol/L Anion Gap 7.0 mmol/L Blood Urea Nitrogen 32 mg/dl Creatinine 1.40 mg/dl Est Creatinine Clear Calc Drug Dose 41.3 ml/min Estimated GFR () 52.0 Estimated GFR (Non- 44.9 BUN/Creatinine Ratio 22.9 Random Glucose 94 mg/dl Calcium Level 8.6 mg/dl Test 07/24/16 16:12 Bedside Glucose 228 mg/dl Assessment and Plan 1 Acute on chronic systolic and diastolic CHF: Lasix 80mg Q8. will follow daily bmp, creat is holding steady 1.4 today. 2 CKD: stage 4.. 3 Pleural effusion b/l - reported as small on the CXR no indication for tap. 4 COPD: anticipate he will need supplemental oxygen and nebs from this point on.. 5 HTN: stable, continue current management 6 DM: stable, continue sliding scale and lantus and pharmacy management 7 Anxiety/panic attacks - No problems with this overnight. Zoloft is at 50mg daily. 8 DVT prophylaxis: heparin 5000 q8h code: Do not resuscitate Plan to diurese over the weekend and monitor kidney function. With anticipation of discharge early in the week, he will need to be placed temporarily as his caregiver ins traveling out of the area for a few weeks.
[2016-07-25] VITALS (8 sets, daily range): BP systolic 108–144; BP diastolic 67–81; PULSE 53–77; TEMP 36.3–36.4; O2SAT 97–98
[2016-07-25] MEDS: NITROGLYCERIN OINT 2% 1GM PACKET EXT SCH ×4 (01:05→18:04)
[2016-07-25] MEDS: MoRPHine SULFATE 4 MG/ML 1 ML CARP\\VIAL IV PRN (05:38)
[2016-07-25] MEDS: FUROSEMIDE INJ 80 MG in SYRINGE 0 ML IV SCH ×3 (05:41→22:26)
[2016-07-25] MEDS: HEPARIN SOD 5000 UNIT/0.5 ML CARP SQ SCH ×3 (05:53→22:25)
[2016-07-25 06:22] LABS: HEMATOCRIT 35.7 % (42-52); MEAN CELL VOLUME 98.6 fL (80-100); MEAN CORPUSCULAR HEMOGLOBIN 30.4 pg (25-34); MEAN CORPUSCULAR HGB CONC 30.8 g/dl (32-36); MEAN PLATELET VOLUME 9.9 fL (7.4-10.4); PLATELET COUNT 253 K/uL (130-400); RED BLOOD COUNT 3.62 M/uL (4.7-6.1); WHITE BLOOD COUNT 9.52 K/uL (4.8-10.8)
[2016-07-25 06:44] LABS: BUN/CREATININE RATIO 20.3 (10-20); CALCIUM 8.9 mg/dl (8.5-10.1); CREATININE 1.5 mg/dl (0.60-1.40); POTASSIUM 4.3 mmol/L (3.5-5.1)
[2016-07-25] MEDS: IPRATROPIUM BROMIDE/ALBUTEROL respimat INH INH SCH ×4 (07:38→22:26)
[2016-07-25] MEDS: CLOPIDOGREL BISULFATE 75 MG TAB PO SCH (07:39)
[2016-07-25] MEDS: SERTRALINE HCL 50 MG TAB PO SCH (07:39)
[2016-07-25] MEDS: ISOSORBIDE MONONITRATE 60 MG TABCR PO SCH (07:39)
[2016-07-25] MEDS: ASPIRIN 81 MG ECTAB PO SCH (07:39)
[2016-07-25] MEDS: CARVEDILOL 6.25 MG TAB PO SCH ×2 (07:39→19:27)
[2016-07-25] MEDS: FINASTERIDE 5 MG TAB PO SCH (07:39)
[2016-07-25] MEDS: LORATADINE 10 MG TAB PO SCH (07:39)
[2016-07-25] MEDS: HydrALAZINE 10 MG TAB PO SCH ×3 (07:40→19:27)
[2016-07-25] MEDS: DOCUSATE SODIUM 100 MG CAP PO SCH ×2 (07:40→19:26)
[2016-07-25] MEDS: BOOST GLUCOSE CONTROL PO SCH ×3 (07:40→18:02)
[2016-07-25] MEDS: NYSTATIN POWDER 15GM BTL EXT SCH (07:41)
[2016-07-25] MEDS: INSULIN ASPART 100 UNITS/ML 3 ML PEN SC SCH ×4 (09:11→20:50)
[2016-07-25] MEDS: INSULIN GLARGINE SOLOSTAR 100 UNITS/ML 3 ML PEN SC SCH (09:13)
[2016-07-25] MEDS: POLYETHYLENE (MIRALAX) 17 GM PACK PO PRN (09:21)
[2016-07-25] MEDS: MAGNESIUM HYDROXIDE SUSP 30 ML UDC PO PRN (09:22)
--- NOTE | 2016-07-25 12:56 | Palliative Care Progress Note ---
Palliative Care Progress Note Date of Service Jul 25, 2016. Subjective Pt evaluation today including: conversation w/ patient, conversation w/ family , physical exam, chart review, conversation w/ organizational consultant Pain: 0/10 PO Intake: tolerating diet Voiding: voiding difficulty Patient feeling okay today, but had a bad weekend. He stated that he became very short of breath again and "didn't if I would make it." His Lasix is now at 80mg IV TID, creatinine 1.5, urine output adequate. Patient is still wanting to go home, but his caregiver will be out of town from Monday to Monday this week. Patient may have to go somewhere temporarily. Walking hallways and doing fairly well Review of Systems Constitutional: No chills, No fever Respiratory: + cough, + dyspnea on exertion, + shortness of breath Cardiac: + edema, No chest pain Abdomen: + problem reported (no BM in 4 days), No nausea, No pain, No vomiting Male : No problem reported Objective Vital Signs Date Time Temp Pulse Resp B/P Pulse Ox O2 Delivery O2 Flow Rate FiO2 07/25/16 07:59 36.3 74 22 142/81 98 Nasal Cannula 4.0 07/25/16 07:45 98 Nasal Cannula 4.0 07/25/16 05:29 71 144/81 97 07/25/16 00:30 36.3 77 18 108/67 Nasal Cannula 4.0 07/24/16 23:59 Nasal Cannula 4.0 07/24/16 20:30 69 129/69 07/24/16 20:00 Nasal Cannula 4.0 07/24/16 16:34 Nasal Cannula 3.0 07/24/16 15:13 36.3 70 18 131/74 98 Nasal Cannula 4.0 Physical Exam General Appearance: no apparent distress, + obese, + pertinent finding ( sitting up in chair) Neck: no JVD Respiratory/Chest: no respiratory distress, no accessory muscle use, + decreased breath sounds, + pertinent finding (respirations looked slightly labored) Cardiovascular: regular rate, rhythm, no murmur, + pertinent finding (+1 pitting edema to bilateral lower extremities) Abdomen: normal bowel sounds, non tender, + pertinent finding (obese abdomen) Neurologic/Psychiatric: alert, normal mood/affect, oriented x 3 Skin: normal color Laboratory Results Last 24 Hours Test 07/24/16 16:12 07/24/16 19:57 07/25/16 05:15 07/25/16 07:44 Bedside Glucose 228 mg/dl 190 mg/dl 117 mg/dl White Blood Count 9.52 K/uL Red Blood Count 3.62 M/uL Hemoglobin 11.0 g/dL Hematocrit 35.7 % Mean Corpuscular Volume 98.6 fL Mean Corpuscular Hemoglobin 30.4 pg Mean Corpuscular Hemoglobin Concent 30.8 g/dl RDW Standard Deviation 61.2 fL RDW Coefficient of Variation 17.1 % Platelet Count 253 K/uL Mean Platelet Volume 9.9 fL Sodium Level 138 mmol/L Potassium Level 4.3 mmol/L Chloride Level 94 mmol/L Carbon Dioxide Level 40 mmol/L Anion Gap 4.0 mmol/L Blood Urea Nitrogen 30 mg/dl Creatinine 1.50 mg/dl Est Creatinine Clear Calc Drug Dose 38.6 ml/min Estimated GFR () 47.8 Estimated GFR (Non- 41.3 BUN/Creatinine Ratio 20.3 Random Glucose 74 mg/dl Calcium Level 8.9 mg/dl Test 07/25/16 11:45 Bedside Glucose 196 mg/dl Assessment and Plan Problem list: Shortness of breath Weakness Acute on chronic CHF CKD stage IV COPD Goals of care (Z51.5) Palliative care plan: Spoke today with patient, caregiver Jennifer, and son/POA Frank. The patient would still like to go home, unsure if he would like hospice or not. Still need to optimize fluid balance with lasix, and lasix will need to be switched over to PO. Discharge planning still uncertain as patient will need temporary placement if discharged while caregiver is away. Discussed with housing case manager. Patient denies any pain or discomfort at this time. I will continue to follow as needed. Palliative Performance Scale: 50 % Continued [facility] stay due to: multiple IV medications needed
--- NOTE | 2016-07-25 13:15 | Hospitalist Progress Note ---
Hospitalist Progress Note Date of Service Jul 25, 2016. Subjective Pt evaluation today including: conversation w/ patient, conversation w/ family , physical exam, chart review, lab review, review of studies, review of inpatient medication list Patient had continued SOB overnight Urine output of 800 cc Patient does however state SOB is better then day prior Constitutional: No chills, No fever Eyes: No worsening of vision ENT: No hearing loss Respiratory: No cough, No shortness of breath Cardiovascular: No chest pain, No edema Abdomen: No constipation, No pain, No vomiting Male : No dysuria Neurologic: No memory loss Endo: No fatigue Skin: No rash Medications Current Inpatient Medications Medications (Trade) Dose Ordered Sig/Vijay Route Start Time Stop Time Status Last Admin Dose Admin Acetaminophen (Tylenol Tab) 650 mg Q4H PRN PO 07/12/16 04:00 08/11/16 03:59 07/15/16 16:02 650 MG Al Hydrox/Mg Hydrox/Simethicone (Maalox Max Susp) 15 ml Q4H PRN PO 07/12/16 04:00 08/11/16 03:59 Magnesium Hydroxide (Milk Of Magnesia Susp) 30 ml Q12H PRN PO 07/12/16 04:00 08/11/16 03:59 07/25/16 09:22 30 ML Ondansetron HCl (Zofran Inj) 4 mg Q6H PRN IV 07/12/16 04:00 08/11/16 03:59 Nitroglycerin (Nitrostat Tab) 0.4 mg UD PRN SL 07/12/16 04:00 08/11/16 03:59 Nitroglycerin (Nitroglycerin 2% Oint) 1 inch Q6 EXT 07/12/16 04:15 08/11/16 04:14 07/25/16 05:50 1 INCH Aspirin (Ecotrin Tab) 81 mg DAILY PO 07/12/16 09:00 08/11/16 08:59 07/25/16 07:39 81 MG Clopidogrel Bisulfate (plAVix TAB) 75 mg DAILY PO 07/12/16 09:00 08/11/16 08:59 07/25/16 07:39 75 MG Docusate Sodium (coLACE CAP) 100 mg BID PO 07/12/16 09:00 08/11/16 08:59 07/25/16 07:40 100 MG Finasteride (Proscar Tab) 5 mg DAILY PO 07/12/16 09:00 08/11/16 08:59 07/25/16 07:39 5 MG Hydralazine HCl (Apresoline Tab) 10 mg TID PO 07/12/16 09:00 08/11/16 08:59 07/25/16 07:40 10 MG Insulin Aspart (novoLOG ASPART) SLIDING SCALE If C... ACHS SC 07/12/16 11:00 08/11/16 10:59 07/25/16 09:11 8 UNITS Glucose (Glucose 40% Gel) 15-30 GRAMS 15 GRAMS... UD PRN PO 07/12/16 08:45 08/11/16 08:44 Glucose (Glucose Chew Tab) 4-8 Tablets 4 Tabl... UD PRN PO 07/12/16 08:45 08/11/16 08:44 Dextrose (Dextrose 50% 50ML Syringe) 25-50ML OF 50% DW IV FOR... UD PRN IV 07/12/16 08:45 08/11/16 08:44 Glucagon (Glucagon Inj) 1 mg UD PRN SQ 07/12/16 08:45 08/11/16 08:44 Miscellaneous Information (Consult Glycemic Management Pharmacy) 1 ea UD PRN N/A 07/12/16 09:29 08/11/16 09:28 Polyethylene (Miralax Powder Packet) 17 gm DAILY PRN PO 07/12/16 09:15 08/11/16 09:14 07/25/16 09:21 17 GM Nystatin (Mycostatin Powder) 1 appln DAILY EXT 07/13/16 09:00 08/12/16 08:59 07/25/16 07:41 1 APPLN Zolpidem Tartrate (Ambien Tab) 2.5 mg HS PRN PO 07/12/16 21:45 08/11/16 21:44 Enteral Nutritional Formula (Boost Glucose Control) 0.5 can TIDM PO 07/13/16 07:15 08/12/16 07:14 07/25/16 07:40 0.5 CAN Insulin Glargine (Lantus Solostar Pen) 10 unit BID SC 07/13/16 21:00 08/12/16 20:59 07/25/16 09:13 10 UNIT Isosorbide Mononitrate (Imdur Ext Rel Tab) 120 mg QAM PO 07/15/16 08:00 08/14/16 08:59 07/25/16 07:39 120 MG Loratadine (Claritin Tab) 10 mg QAM PO 07/16/16 08:00 08/15/16 07:59 07/25/16 07:39 10 MG Carvedilol (Coreg Tab) 6.25 mg BID PO 07/15/16 20:00 08/14/16 19:59 07/25/16 07:39 6.25 MG Heparin Sodium (Porcine) (Heparin Sq 5000 Unit/0.5ml) 5,000 unit Q8 SQ 07/16/16 14:00 08/15/16 13:59 07/25/16 05:53 5,000 UNIT Morphine Sulfate 3 mg 3 mg Q3HWA PRN IV 07/21/16 13:15 08/04/16 13:14 07/25/16 05:38 3 MG Furosemide/Syringe (Lasix Inj/ Syringe) 8 ml @ 4 mls/min Q8 IV 07/22/16 14:00 08/21/16 13:59 07/25/16 05:41 4 MLS/MIN Sertraline HCl (Zoloft Tab) 50 mg QAM PO 07/23/16 08:00 08/22/16 07:59 07/25/16 07:39 50 MG Albuterol/ Ipratropium (Combivent Respimat Inh) 1 puffs QIDR INH 07/24/16 16:00 08/23/16 15:59 07/25/16 07:38 1 PUFFS Objective Vital Signs Date Time Temp Pulse Resp B/P Pulse Ox O2 Delivery O2 Flow Rate FiO2 07/25/16 07:59 36.3 74 22 142/81 98 Nasal Cannula 4.0 07/25/16 07:45 98 Nasal Cannula 4.0 07/25/16 05:29 71 144/81 97 07/25/16 00:30 36.3 77 18 108/67 Nasal Cannula 4.0 07/24/16 23:59 Nasal Cannula 4.0 07/24/16 20:30 69 129/69 07/24/16 20:00 Nasal Cannula 4.0 07/24/16 16:34 Nasal Cannula 3.0 07/24/16 15:13 36.3 70 18 131/74 98 Nasal Cannula 4.0 07/24/16 11:43 Nasal Cannula 3.0 07/24/16 11:31 73 14 98 Nasal Cannula 4.0 Physical Exam General Appearance: WD/WN, no apparent distress Eyes: normal inspection ENT: normal ENT inspection Neck: supple Respiratory/Chest: chest non-tender, + crackles Cardiovascular: regular rate, rhythm, no edema Abdomen: normal bowel sounds, non tender, soft Extremities: normal range of motion, non-tender 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/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3 mmol/L Chloride Level 94 mmol/L Carbon Dioxide Level 40 mmol/L Anion Gap 4.0 mmol/L Blood Urea Nitrogen 30 mg/dl Creatinine 1.50 mg/dl Est Creatinine Clear Calc Drug Dose 38.6 ml/min Estimated GFR () 47.8 Estimated GFR (Non- 41.3 BUN/Creatinine Ratio 20.3 Random Glucose 74 mg/dl Calcium Level 8.9 mg/dl Test 07/25/16 07:44 Bedside Glucose 117 mg/dl Assessment and Plan Acute on Chronic Kidney Disease - Cr seems to be stable around 1.5 - per nephrology no dialysis indications at this time - patient had u/o of 800 cc last night - currently on Lasix 80 mg tid - repeat CXR today Hypoxic Respiratory Failure - at this point patient has been diuresed and appears closer to euvolemia with no change in respiratory status - consult pulmonary for there input on pulmonary etiologies Acute on chronic systolic and diastolic CHF: -lasix 80mg Q8 hr -repeat CXR COPD - doesn't appear to be in exacerbation - cont Combivent q.i.d HTN - cont imdur DMII - SSI -acuchecks PPx- heparin DNR-1
[2016-07-25 14:29] LABS: BUN/CREATININE RATIO 18.3 (10-20); CALCIUM 8.7 mg/dl (8.5-10.1); CREATININE 1.7 mg/dl (0.60-1.40); POTASSIUM 4.8 mmol/L (3.5-5.1)
--- NOTE | 2016-07-25 14:44 | Pharmacy Progress Note ---
Glycemic Control: Progress Nt Date of Service Jul 25, 2016. Scope Glycemic Pharmacist consulted by Dr Velazquez on 07/12/16 for glycemic control and to write orders per [facility] inpatient glycemic control protocol. Objective Accuchecks BSG (last 24hrs): Test 07/24/16 16:12 07/24/16 19:57 07/25/16 05:15 07/25/16 07:44 Bedside Glucose 228 mg/dl (70-99) 190 mg/dl (70-99) 117 mg/dl (70-99) Random Glucose 74 mg/dl (70-99) Test 07/25/16 11:45 07/25/16 13:28 Bedside Glucose 196 mg/dl (70-99) Random Glucose 190 mg/dl (70-99) Laboratory Data (last 24hrs) Test 07/25/16 05:15 07/25/16 13:28 Anion Gap 4.0 mmol/L 6.0 mmol/L BUN/Creatinine Ratio 20.3 18.3 Blood Urea Nitrogen 30 mg/dl 31 mg/dl Creatinine 1.50 mg/dl 1.70 mg/dl Potassium Level 4.3 mmol/L 4.8 mmol/L Sodium Level 138 mmol/L 135 mmol/L White Blood Count 9.52 K/uL HbA1c: Test 07/13/16 05:51 Hemoglobin A1c 7.6 %(4.5-5.6) H Recent Pertinent Medications Outpatient Anti-diabetic Regimen: * glipizide 10mg PO BID with meals * sitagliptin 50mg PO daily * A1c = 7.6 % 07/13/16 The patient is currently receiving: * Basal insulin: Lantus 10 units every 12 hours * Correctional Insulin: NovoLog Correction per scale AC+HS Goal Range: Low 100 mg/dL - High 140 mg/dL Correction Factor: 20 mg/dL/unit * Prandial insulin: Per carb ratio of 1 unit per 5 grams CHO consumed * Oral Agents: none at this time Assessment & Plan ASSESSMENT: 07/25/16 * Mr. Walker BSGs have begun to trend upward throughout the day with a precipitous fall overnight. * Currently, Lantus is BID - may benefit from daily (in the morning) Lantus to help with trend * A1c as an outpatient shows appropriate control for age/comorbidities * at discharge, likely can continue oral medications with renal dose adjustment as needed * Boost glucose control will make glycemic management increasingly difficult as the carbohydrates are harder to cover appropriately * continue covering CHO in boost PLAN FOR INPATIENT GLYCEMIC CONTROL: * Lantus 10 units SQ BID --> transition to Lantus 20 units SQ daily * NovoLog AC and HS * Correction factor: 20mg/dL/unit * Carb ratio: 1 unit per 5 g of CHO consumed * Goal range: 100-140mg/dL * A1c - current * added to discharge instructions RECOMMENDATIONS FOR DISCHARGE: * continue home regimen with renal adjustments when needed * Please note that the plan above was derived based on current level of insulin resistance and hospital stress. These recommendations are appropriate for inpatient admission only. Plan of care upon discharge will need to be reassessed to avoid potential outpatient hypo/hyperglycemia. Thank you.
--- NOTE | 2016-07-25 14:51 | DIAGNOSTIC IMAGING REPORT ---
TWO VIEW CHEST CLINICAL HISTORY: Follow-up CHF. FINDINGS: PA and lateral chest radiographs are compared to study dated 07/22/2016 and correlated with chest CT dated 07/19/2016. The PA view is degraded by patient rotation and apical lordotic positioning. The patient is status post midline sternotomy. The heart is enlarged and there is atherosclerotic calcification of the thoracic aorta. There is pulmonary basilar congestion and interstitial edema. There are layering pleural effusions with bibasilar consolidation. There is no pneumothorax. The skeletal structures are osteopenic. Advanced arthritic change is noted in the shoulders and thoracic spine. Advanced atherosclerotic calcification is noted in the carotid bulbs. IMPRESSION: 1. Cardiomegaly with evidence of congestive failure and interstitial edema. This has not significantly changed from 07/22/2016. 2. Layering pleural effusions with bibasilar consolidation. Electronically signed by: Dm Reeves M.D. 07/25/2016 2:50 PM Dictated Date/Time: 07/25/2016 2:48 PM
[2016-07-25] MEDS ORDERED: INSULIN GLARGINE SOLOSTAR 100 UNITS/ML 3 ML PEN SC SCH (15:00)
--- NOTE | 2016-07-25 17:33 | Nephrology Progress Note ---
Nephrology Progress Note Date of Service: Jul 25, 2016. Subjective seen on rounds this am at 0820; son Frank at bedside. pt c/o air hunger and getting medications for this. also marked anxiety. other concern is constipation. breathing slightly but not substantively improved Objective Date Time Temp Pulse Resp B/P Pulse Ox O2 Delivery O2 Flow Rate FiO2 07/25/16 14:42 36.4 53 18 119/68 97 Nasal Cannula 4.0 07/25/16 07:59 36.3 74 22 142/81 98 Nasal Cannula 4.0 07/25/16 07:45 98 Nasal Cannula 4.0 07/25/16 05:29 71 144/81 97 07/25/16 00:30 36.3 77 18 108/67 Nasal Cannula 4.0 07/24/16 23:59 Nasal Cannula 4.0 07/24/16 20:30 69 129/69 07/24/16 20:00 Nasal Cannula 4.0 07/24/16 16:34 Nasal Cannula 3.0 Physical Exam: General-aaox3, obese, on 02 NC Eyes-no scleral icterus ENT-mmm Neck-supple Lungs-minimal air mvt throughout posterior torres; bibasilar crackles Heart-RRR Abdomen-bs+ s/nt/nd, no lujan Extremities-no edema Neuro-nonfocal Derm-pale, no rash noted Current Inpatient Medications Medications (Trade) Dose Ordered Sig/Vijay Route Start Time Stop Time Status Last Admin Dose Admin Acetaminophen (Tylenol Tab) 650 mg Q4H PRN PO 07/12/16 04:00 08/11/16 03:59 07/15/16 16:02 650 MG Al Hydrox/Mg Hydrox/Simethicone (Maalox Max Susp) 15 ml Q4H PRN PO 07/12/16 04:00 08/11/16 03:59 Magnesium Hydroxide (Milk Of Magnesia Susp) 30 ml Q12H PRN PO 07/12/16 04:00 08/11/16 03:59 07/25/16 09:22 30 ML Ondansetron HCl (Zofran Inj) 4 mg Q6H PRN IV 07/12/16 04:00 08/11/16 03:59 Nitroglycerin (Nitrostat Tab) 0.4 mg UD PRN SL 07/12/16 04:00 08/11/16 03:59 Nitroglycerin (Nitroglycerin 2% Oint) 1 inch Q6 EXT 07/12/16 04:15 08/11/16 04:14 07/25/16 12:31 1 INCH Aspirin (Ecotrin Tab) 81 mg DAILY PO 07/12/16 09:00 08/11/16 08:59 07/25/16 07:39 81 MG Clopidogrel Bisulfate (plAVix TAB) 75 mg DAILY PO 07/12/16 09:00 08/11/16 08:59 07/25/16 07:39 75 MG Docusate Sodium (coLACE CAP) 100 mg BID PO 07/12/16 09:00 08/11/16 08:59 07/25/16 07:40 100 MG Finasteride (Proscar Tab) 5 mg DAILY PO 07/12/16 09:00 08/11/16 08:59 07/25/16 07:39 5 MG Hydralazine HCl (Apresoline Tab) 10 mg TID PO 07/12/16 09:00 08/11/16 08:59 07/25/16 14:33 10 MG Insulin Aspart (novoLOG ASPART) SLIDING SCALE If C... ACHS SC 07/12/16 11:00 08/11/16 10:59 07/25/16 12:38 5 UNITS Glucose (Glucose 40% Gel) 15-30 GRAMS 15 GRAMS... UD PRN PO 07/12/16 08:45 08/11/16 08:44 Glucose (Glucose Chew Tab) 4-8 Tablets 4 Tabl... UD PRN PO 07/12/16 08:45 08/11/16 08:44 Dextrose (Dextrose 50% 50ML Syringe) 25-50ML OF 50% DW IV FOR... UD PRN IV 07/12/16 08:45 08/11/16 08:44 Glucagon (Glucagon Inj) 1 mg UD PRN SQ 07/12/16 08:45 08/11/16 08:44 Miscellaneous Information (Consult Glycemic Management Pharmacy) 1 ea UD PRN N/A 07/12/16 09:29 08/11/16 09:28 Polyethylene (Miralax Powder Packet) 17 gm DAILY PRN PO 07/12/16 09:15 08/11/16 09:14 07/25/16 09:21 17 GM Nystatin (Mycostatin Powder) 1 appln DAILY EXT 07/13/16 09:00 08/12/16 08:59 07/25/16 07:41 1 APPLN Zolpidem Tartrate (Ambien Tab) 2.5 mg HS PRN PO 07/12/16 21:45 08/11/16 21:44 Enteral Nutritional Formula (Boost Glucose Control) 0.5 can TIDM PO 07/13/16 07:15 08/12/16 07:14 07/25/16 12:32 0.5 CAN Isosorbide Mononitrate (Imdur Ext Rel Tab) 120 mg QAM PO 07/15/16 08:00 08/14/16 08:59 07/25/16 07:39 120 MG Loratadine (Claritin Tab) 10 mg QAM PO 07/16/16 08:00 08/15/16 07:59 07/25/16 07:39 10 MG Carvedilol (Coreg Tab) 6.25 mg BID PO 07/15/16 20:00 08/14/16 19:59 07/25/16 07:39 6.25 MG Heparin Sodium (Porcine) (Heparin Sq 5000 Unit/0.5ml) 5,000 unit Q8 SQ 07/16/16 14:00 08/15/16 13:59 07/25/16 14:40 5,000 UNIT Morphine Sulfate 3 mg 3 mg Q3HWA PRN IV 07/21/16 13:15 08/04/16 13:14 07/25/16 05:38 3 MG Furosemide/Syringe (Lasix Inj/ Syringe) 8 ml @ 4 mls/min Q8 IV 07/22/16 14:00 08/21/16 13:59 07/25/16 14:33 4 MLS/MIN Sertraline HCl (Zoloft Tab) 50 mg QAM PO 07/23/16 08:00 08/22/16 07:59 07/25/16 07:39 50 MG Albuterol/ Ipratropium (Combivent Respimat Inh) 1 puffs QIDR INH 07/24/16 16:00 08/23/16 15:59 07/25/16 12:31 1 PUFFS Insulin Glargine (Lantus Solostar Pen) 10 unit 1500 SC 07/25/16 15:00 07/25/16 16:00 Insulin Glargine (Lantus Solostar Pen) 20 unit QAM SC 07/26/16 08:00 08/25/16 07:59 Last 24 Hours Test 07/24/16 16:12 07/24/16 19:57 07/25/16 05:15 07/25/16 07:44 Bedside Glucose 228 mg/dl 190 mg/dl 117 mg/dl White Blood Count 9.52 K/uL Red Blood Count 3.62 M/uL Hemoglobin 11.0 g/dL Hematocrit 35.7 % Mean Corpuscular Volume 98.6 fL Mean Corpuscular Hemoglobin 30.4 pg Mean Corpuscular Hemoglobin Concent 30.8 g/dl RDW Standard Deviation 61.2 fL RDW Coefficient of Variation 17.1 % Platelet Count 253 K/uL Mean Platelet Volume 9.9 fL Sodium Level 138 mmol/L Potassium Level 4.3 mmol/L Chloride Level 94 mmol/L Carbon Dioxide Level 40 mmol/L Anion Gap 4.0 mmol/L Blood Urea Nitrogen 30 mg/dl Creatinine 1.50 mg/dl Est Creatinine Clear Calc Drug Dose 38.6 ml/min Estimated GFR () 47.8 Estimated GFR (Non- 41.3 BUN/Creatinine Ratio 20.3 Random Glucose 74 mg/dl Calcium Level 8.9 mg/dl Test 07/25/16 11:45 07/25/16 13:28 Bedside Glucose 196 mg/dl Sodium Level 135 mmol/L Potassium Level 4.8 mmol/L Chloride Level 91 mmol/L Carbon Dioxide Level 38 mmol/L Anion Gap 6.0 mmol/L Blood Urea Nitrogen 31 mg/dl Creatinine 1.70 mg/dl Est Creatinine Clear Calc Drug Dose 34.0 ml/min Estimated GFR () 41.1 Estimated GFR (Non- 35.5 BUN/Creatinine Ratio 18.3 Random Glucose 190 mg/dl Calcium Level 8.7 mg/dl Other Studies: TTE this admission Left ventricular systolic function is mildly reduced. Ejection Fraction = 40-45%. There is a moderate to large sized posterior, inferior, and lateral wall motion abnormality with severe hypokinesis to akinesis of the segments. The aortic valve is severely calcified. Doppler and 2D imaging of the aortic valve are discordant. Moderate aortic stenosis is present. Moderate aortic regurgitation. There is mild mitral regurgitation. There is mild to moderate tricuspid regurgitation. CXR today 2 view 1. Cardiomegaly with evidence of congestive failure and interstitial edema. This has not significantly changed from 07/22/2016. 2. Layering pleural effusions with bibasilar consolidation. Assessment & Plan 85 y/o M w/ CKD 4, copd, CAD, ischemic HF EF 40%, HTN, HL admitted with acute on chronic renal failure and volume overload. His prior baseline creatinine was in low 2's. CXR shows interstitial edema and pleural effusions CKD stage 4-creatinine improved from mid 2s to 1.5 in setting of iv diuretics and now trending up to 1.7 today. Given his lack of improvement in sx, would tighten up on diuresis at this time. -still marked dyspnea/plm edema though no peripheral edema. -there has been a lot of discussion of dialysis this admission but w/ his current creatinine this is not needed and should not really be discussed further at this time unless renal function changes significantly -bladder scan and straight cath/lujan for >200 ML retained urine -recommend daily standing weight and strict I/O -daily bmp -started 2 gm daily sodium limit and 1.2 L fluid limit given XR findings -will add metolazone to diuretics Defer to primary service to ensure he is optimized from heart failure and pulmonary/ COPD standpoint. Question if pulm meds can be optimized; if there would be any role for chest CT but at this point needs more diuresis. could also consider pulm consult thoracentesis and/ or bronchcase discussed with primary hospitalist and palliative care who are in agreement.
[2016-07-25] MEDS ORDERED: METOLAZONE 5 MG TAB PO ONE (21:30)
[2016-07-26] VITALS (10 sets, daily range): BP systolic 94–149; BP diastolic 53–72; PULSE 50–76; TEMP 35.7–36.8; O2SAT 95–99
[2016-07-26] MEDS: NITROGLYCERIN OINT 2% 1GM PACKET EXT SCH ×3 (00:18→12:00)
[2016-07-26] MEDS: METOLAZONE 5 MG TAB PO SCH (05:24)
[2016-07-26] MEDS: HEPARIN SOD 5000 UNIT/0.5 ML CARP SQ SCH ×3 (05:26→20:57)
--- NOTE | 2016-07-26 06:24 | Progress Note ---
Progress Note Prior to administering the lasix 80 mg RN notified me of bp 90s systolic He does have a negative balance so will hold this dose as he receives it tid After patient is reevaluated by trevor a decision can be made on dose adjustments accordingly
[2016-07-26] MEDS ORDERED: NURSING VERBAL MED ORDER ONE (06:30)
[2016-07-26] MEDS: FUROSEMIDE INJ 80 MG in SYRINGE 0 ML IV SCH ×2 (06:33→13:42)
[2016-07-26 06:37] LABS: BUN/CREATININE RATIO 21.1 (10-20); CALCIUM 8.3 mg/dl (8.5-10.1); CREATININE 1.5 mg/dl (0.60-1.40); POTASSIUM 3.8 mmol/L (3.5-5.1)
[2016-07-26] MEDS ORDERED: INSULIN GLARGINE SOLOSTAR 100 UNITS/ML 3 ML PEN SC SCH ×2 (08:00→08:30)
[2016-07-26] MEDS: DOCUSATE SODIUM 100 MG CAP PO SCH ×2 (08:54→20:51)
[2016-07-26] MEDS: ISOSORBIDE MONONITRATE 60 MG TABCR PO SCH (08:55)
[2016-07-26] MEDS: HydrALAZINE 10 MG TAB PO SCH (08:55)
[2016-07-26] MEDS: SERTRALINE HCL 50 MG TAB PO SCH (08:56)
[2016-07-26] MEDS: BOOST GLUCOSE CONTROL PO SCH ×3 (08:56→17:49)
[2016-07-26] MEDS: LORATADINE 10 MG TAB PO SCH (08:56)
[2016-07-26] MEDS: ASPIRIN 81 MG ECTAB PO SCH (08:56)
[2016-07-26] MEDS: FINASTERIDE 5 MG TAB PO SCH (08:56)
[2016-07-26] MEDS: IPRATROPIUM BROMIDE/ALBUTEROL respimat INH INH SCH ×2 (08:57→12:00)
[2016-07-26] MEDS: NYSTATIN POWDER 15GM BTL EXT SCH (08:57)
[2016-07-26] MEDS: CLOPIDOGREL BISULFATE 75 MG TAB PO SCH (08:57)
[2016-07-26] MEDS: CARVEDILOL 6.25 MG TAB PO SCH ×2 (08:57→20:00)
[2016-07-26] MEDS: INSULIN ASPART 100 UNITS/ML 3 ML PEN SC SCH ×4 (09:09→20:56)
[2016-07-26] MEDS: POLYETHYLENE (MIRALAX) 17 GM PACK PO SCH ×2 (09:58→20:51)
--- NOTE | 2016-07-26 10:40 | Pharmacy Progress Note ---
Glycemic Control: Progress Nt Date of Service Jul 26, 2016. Scope Glycemic Pharmacist consulted by Dr Velazquez on 07/12/16 for glycemic control and to write orders per [facility] inpatient glycemic control protocol. Objective Accuchecks BSG (last 24hrs): Test 07/25/16 11:45 07/25/16 13:28 07/25/16 16:31 07/25/16 20:05 Bedside Glucose 196 mg/dl (70-99) 179 mg/dl (70-99) 187 mg/dl (70-99) Random Glucose 190 mg/dl (70-99) Test 07/26/16 05:45 Random Glucose 68 mg/dl (70-99) Laboratory Data (last 24hrs) Test 07/25/16 13:28 07/26/16 05:45 Anion Gap 6.0 mmol/L 7.0 mmol/L BUN/Creatinine Ratio 18.3 21.1 Blood Urea Nitrogen 31 mg/dl 32 mg/dl Creatinine 1.70 mg/dl 1.50 mg/dl Potassium Level 4.8 mmol/L 3.8 mmol/L Sodium Level 135 mmol/L 137 mmol/L HbA1c: Test 07/13/16 05:51 Hemoglobin A1c 7.6 % (4.5-5.6) H Recent Pertinent Medications Outpatient Anti-diabetic Regimen: * glipizide 10mg PO BID with meals * sitagliptin 50mg PO daily * A1c = 7.6 % 07/13/16 The patient is currently receiving: * Basal insulin: Lantus 10 units every 12 hours * Correctional Insulin: NovoLog Correction per scale AC+HS Goal Range: Low 100 mg/dL - High 140 mg/dL Correction Factor: 20 mg/dL/unit * Prandial insulin: Per carb ratio of 1 unit per 5 grams CHO consumed * Oral Agents: none at this time Assessment & Plan ASSESSMENT: 07/25/16 * Mr. Aparicio's BSGs have begun to trend upward throughout the day with a precipitous fall overnight. * Currently, Lantus is BID - may benefit from daily (in the morning) Lantus to help with trend * A1c as an outpatient shows appropriate control for age/comorbidities * at discharge, likely can continue oral medications with renal dose adjustment as needed * Boost glucose control will make glycemic management increasingly difficult as the carbohydrates are harder to cover appropriately * continue covering CHO in boost 07/26/16 * Fasting BSG 84 mg/dL * Reduce Lantus by 20% * Maintain Novolog for now * Of note, patient refused lunch time insulin- expect BSGs to trend >200 mg/dL if this continues PLAN FOR INPATIENT GLYCEMIC CONTROL: * Lantus 16 units daily * NovoLog AC and HS * Correction factor: 20mg/dL/unit * Carb ratio: 1 unit per 5 g of CHO consumed * Goal range: 100-140mg/dL * A1c - current * added to discharge instructions RECOMMENDATIONS FOR DISCHARGE: * continue home regimen with renal adjustments when needed * Please note that the plan above was derived based on current level of insulin resistance and hospital stress. These recommendations are appropriate for inpatient admission only. Plan of care upon discharge will need to be reassessed to avoid potential outpatient hypo/hyperglycemia. Thank you.
[2016-07-26] MEDS: MoRPHine SULFATE 4 MG/ML 1 ML CARP\\VIAL IV PRN ×2 (12:23→18:41)
[2016-07-26] MEDS: ALBUT/IPRATROP 3MG/0.5MG NEB 3 ML VIAL INH SCH ×3 (14:03→19:11)
--- NOTE | 2016-07-26 14:21 | PROGRESS NOTE ---
DATE: 07/26/2016 PROBLEMS: Include 1. Congestive heart failure. 2. Bilateral pleural effusion. 3. Chronic bronchitis. 4. Increased dyspnea. SUBJECTIVE: We have been asked to reevaluate the patient following aggressive diuresis for his bilateral pleural effusions. The patient continues to complain of some increased shortness of breath. When I saw the patient today, he is complaining of having a sensation of mucus in his chest that he was unable to expectorate. He states that every now and then he will get some mucus up and it is dark, thick, green in color. No blood that he is aware of, however, he states that he has had quite a bit of difficulty getting the mucus up out. He states he is tired of trying to breathe and fight it. He is very frustrated at this time. His son who was in the room with him reports that he has used Mucinex in the past at home and this has provided him with some good relief. When I asked the patient if he had any nebulizer treatment in a while. He reports that he does feel congested. He does have some wheezing off and on. I did discuss with the patient if he has difficulty swallowing, he reports that typically no, he does not. No other concerns or problems at this time. OBJECTIVE: GENERAL: The patient is an 85-year-old male sitting at bedside, is interactive and cooperative, perhaps alert and oriented to person and place. VITAL SIGNS: Temperature 35.7, pulse 76, respirations 18, blood pressure is 128/72, pulse ox 97% on 3 liters. HEENT: Normocephalic, atraumatic. Pupils equal, round and reactive to light and accommodation. Extraocular movements are intact. [place] moist gingival and buccal mucosa. NECK: Supple, short, thick. No adenopathy noted. No JVD or thyromegaly. CHEST: Diminished breath sounds bibasilar rales, does have some dullness to percussion bilaterally. Also noted is coarse wheezes/rhonchi in the right middle lobe area anteriorly. CARDIOVASCULAR: Regular rate and rhythm. No murmurs, gallops or rubs noted. ABDOMEN: Bowel sounds present. Abdomen soft, obese, nontender. No guarding, rigidity or organomegaly. EXTREMITIES: Bilateral trace edema, no erythema, no tenderness. LABORATORY DATA: His last imaging is from July 25 shows bilateral pleural effusions with bibasilar consolidations. IMPRESSION: This is an 85-year-old male with significant heart failure and chronic kidney disease who has bilateral pleural effusions as well as a sensation of mucus in his chest. At this time, I would like for the patient to be placed on nebulized treatment every 4-6 hours while awake to see if this helps. I would also like the patient to be placed on Mucinex to see if this helps with the mucus. The patient is going to be evaluated by Dr. Fernandez later today with ultrasound to see if there is possibility we can do thoracentesis on him to provide him with some relief. At this point, I think it would be more for therapeutic purposes than diagnostic. I did discuss this briefly with the patient and his son and they are in agreement to this. Otherwise, we will continue to follow the patient during hospitalization. Patient discussed and I agree with the above plan. TEVIND
--- NOTE | 2016-07-26 15:37 | Hospitalist Progress Note ---
Hospitalist Progress Note Date of Service Jul 26, 2016. Subjective Pt evaluation today including: conversation w/ patient, conversation w/ family , physical exam, chart review, lab review, review of studies, conversation w/ program consultant, review of inpatient medication list Patient had improved SOB overnight Tolerated bipap well States that he has not had a bowel movement in 1 week Denies any nasuea, vomiting Episode of hypotension overnight 90's/60's /patient asymptomatic Constitutional: No fever Eyes: No worsening of vision ENT: No hearing loss Respiratory: + cough, + dyspnea on exertion, + shortness of breath, + sputum Cardiovascular: + orthopnea, No chest pain, No edema Abdomen: + constipation, No diarrhea, No nausea, No pain, No vomiting Musculoskeletal: No joint pain Male : No dysuria Neurologic: No memory loss Psychiatric: No depression symptoms Medications Current Inpatient Medications Medications (Trade) Dose Ordered Sig/Vijay Route Start Time Stop Time Status Last Admin Dose Admin Acetaminophen (Tylenol Tab) 650 mg Q4H PRN PO 07/12/16 04:00 08/11/16 03:59 07/15/16 16:02 650 MG Al Hydrox/Mg Hydrox/Simethicone (Maalox Max Susp) 15 ml Q4H PRN PO 07/12/16 04:00 08/11/16 03:59 Magnesium Hydroxide (Milk Of Magnesia Susp) 30 ml Q12H PRN PO 07/12/16 04:00 08/11/16 03:59 07/25/16 09:22 30 ML Ondansetron HCl (Zofran Inj) 4 mg Q6H PRN IV 07/12/16 04:00 08/11/16 03:59 Nitroglycerin (Nitrostat Tab) 0.4 mg UD PRN SL 07/12/16 04:00 08/11/16 03:59 Nitroglycerin (Nitroglycerin 2% Oint) 1 inch Q6 EXT 07/12/16 04:15 08/11/16 04:14 07/26/16 00:18 1 INCH Aspirin (Ecotrin Tab) 81 mg DAILY PO 07/12/16 09:00 08/11/16 08:59 07/26/16 08:56 81 MG Clopidogrel Bisulfate (plAVix TAB) 75 mg DAILY PO 07/12/16 09:00 08/11/16 08:59 07/26/16 08:57 75 MG Docusate Sodium (coLACE CAP) 100 mg BID PO 07/12/16 09:00 08/11/16 08:59 07/26/16 08:54 100 MG Finasteride (Proscar Tab) 5 mg DAILY PO 07/12/16 09:00 08/11/16 08:59 07/26/16 08:56 5 MG Insulin Aspart (novoLOG ASPART) SLIDING SCALE If C... ACHS SC 07/12/16 11:00 08/11/16 10:59 07/26/16 09:09 11 UNITS Glucose (Glucose 40% Gel) 15-30 GRAMS 15 GRAMS... UD PRN PO 07/12/16 08:45 08/11/16 08:44 Glucose (Glucose Chew Tab) 4-8 Tablets 4 Tabl... UD PRN PO 07/12/16 08:45 08/11/16 08:44 Dextrose (Dextrose 50% 50ML Syringe) 25-50ML OF 50% DW IV FOR... UD PRN IV 07/12/16 08:45 08/11/16 08:44 Glucagon (Glucagon Inj) 1 mg UD PRN SQ 07/12/16 08:45 08/11/16 08:44 Miscellaneous Information (Consult Glycemic Management Pharmacy) 1 ea UD PRN N/A 07/12/16 09:29 08/11/16 09:28 Nystatin (Mycostatin Powder) 1 appln DAILY EXT 07/13/16 09:00 08/12/16 08:59 07/26/16 08:57 1 APPLN Zolpidem Tartrate (Ambien Tab) 2.5 mg HS PRN PO 07/12/16 21:45 08/11/16 21:44 Enteral Nutritional Formula (Boost Glucose Control) 0.5 can TIDM PO 07/13/16 07:15 08/12/16 07:14 07/26/16 08:56 0.5 CAN Isosorbide Mononitrate (Imdur Ext Rel Tab) 120 mg QAM PO 07/15/16 08:00 08/14/16 08:59 07/26/16 08:55 120 MG Loratadine (Claritin Tab) 10 mg QAM PO 07/16/16 08:00 08/15/16 07:59 07/26/16 08:56 10 MG Carvedilol (Coreg Tab) 6.25 mg BID PO 07/15/16 20:00 08/14/16 19:59 07/26/16 08:57 6.25 MG Heparin Sodium (Porcine) (Heparin Sq 5000 Unit/0.5ml) 5,000 unit Q8 SQ 07/16/16 14:00 08/15/16 13:59 07/26/16 13:49 5,000 UNIT Morphine Sulfate 3 mg 3 mg Q3HWA PRN IV 07/21/16 13:15 08/04/16 13:14 07/26/16 12:23 3 MG Furosemide/Syringe (Lasix Inj/ Syringe) 8 ml @ 4 mls/min Q8 IV 07/22/16 14:00 08/21/16 13:59 07/26/16 13:42 4 MLS/MIN Sertraline HCl (Zoloft Tab) 50 mg QAM PO 07/23/16 08:00 08/22/16 07:59 07/26/16 08:56 50 MG Metolazone (Zaroxolyn Tab) 5 mg DAILY@0530 PO 07/26/16 05:30 08/25/16 05:29 07/26/16 05:24 5 MG Insulin Glargine (Lantus Solostar Pen) 16 unit QAM SC 07/26/16 08:30 08/25/16 08:29 Future Hold 07/26/16 10:01 16 UNIT Polyethylene (Miralax Powder Packet) 17 gm BID PO 07/26/16 09:30 08/25/16 09:29 07/26/16 09:58 17 GM Albuterol/ Ipratropium (Duoneb) 3 ml Q4RWA INH 07/26/16 16:00 08/25/16 15:59 07/26/16 14:03 3 ML Guaifenesin (Mucinex Contr Rel Tab) 600 mg Q12 PO 07/26/16 21:00 08/25/16 20:59 Objective Vital Signs Date Time Temp Pulse Resp B/P Pulse Ox O2 Delivery O2 Flow Rate FiO2 07/26/16 14:03 66 16 99 Nasal Cannula 4.0 07/26/16 13:40 104/68 07/26/16 12:00 94/66 07/26/16 08:37 35.7 76 18 128/72 97 BiPAP 07/26/16 08:00 Nasal Cannula 3.0 07/26/16 06:00 50 96/60 07/26/16 00:20 BiPAP 4.0 07/26/16 00:03 36.6 69 18 149/67 98 CPAP 4.0 07/25/16 20:00 BiPAP 4.0 07/25/16 19:30 57 122/77 07/25/16 16:00 98 Nasal Cannula 4.0 Physical Exam General Appearance: WD/WN, no apparent distress Eyes: normal inspection ENT: normal ENT inspection Neck: supple, no adenopathy Respiratory/Chest: chest non-tender, + crackles, + rhonchi Cardiovascular: regular rate, rhythm, no edema Abdomen: normal bowel sounds, non tender Extremities: normal range of motion, non-tender, no pedal edema, no calf tenderness Neurologic/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: 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 nml as tested, no motor/sensory deficits Skin: normal color, warm/dry Laboratory Results Last 24 Hours Test 07/25/16 16:31 07/25/16 20:05 07/26/16 05:45 07/26/16 07:39 Bedside Glucose 179 mg/dl 187 mg/dl 84 mg/dl Sodium Level 137 mmol/L Potassium Level 3.8 mmol/L Chloride Level 91 mmol/L Carbon Dioxide Level 39 mmol/L Anion Gap 7.0 mmol/L Blood Urea Nitrogen 32 mg/dl Creatinine 1.50 mg/dl Est Creatinine Clear Calc Drug Dose 38.6 ml/min Estimated GFR () 47.8 Estimated GFR (Non- 41.3 BUN/Creatinine Ratio 21.1 Random Glucose 68 mg/dl Calcium Level 8.3 mg/dl Test 07/26/16 10:43 07/26/16 11:27 Bedside Glucose 148 mg/dl 174 mg/dl Assessment and Plan Acute on Chronic Kidney Disease - appears volume overloaded - Cr seems to be stable around 1.y - per nephrology no dialysis indications at this time - patient had u/o of 1100 cc last night - currently on Lasix 80 mg tid - cont metolazone - repeat CXR done showed generally no change in pleural effusion or interstitial edema Hypoxic Respiratory Failure - suspect 2/2 to volume - appreciate pulmonary input re: thoracentesis/awaiting Dr. 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
--- NOTE | 2016-07-26 18:09 | Nephrology Progress Note ---
Nephrology Progress Note Date of Service: Jul 26, 2016. Subjective seen on rounds this am at 1020; son Frank and female family member at bedside. pt c/o air hunger still and poor sleep; used bipap ON; ambulated. breathing slightly but not substantively improved Objective Date Time Temp Pulse Resp B/P Pulse Ox O2 Delivery O2 Flow Rate FiO2 07/26/16 16:00 Nasal Cannula 2.0 07/26/16 15:54 36.8 63 18 98/53 95 Nasal Cannula 3.0 07/26/16 14:03 66 16 99 Nasal Cannula 4.0 07/26/16 13:40 104/68 07/26/16 12:00 94/66 07/26/16 08:37 35.7 76 18 128/72 97 BiPAP 07/26/16 08:00 Nasal Cannula 3.0 07/26/16 06:00 50 96/60 07/26/16 00:20 BiPAP 4.0 07/26/16 00:03 36.6 69 18 149/67 98 CPAP 4.0 07/25/16 20:00 BiPAP 4.0 07/25/16 19:30 57 122/77 Physical Exam: General-aaox3, obese, on 02 NC, tired Eyes-no scleral icterus ENT-mmm Neck-supple Lungs-minimal but slightly improved air mvt throughout posterior torres Heart-RRR Abdomen-bs+ s/nt/nd, no lujan Extremities-2+ pedal edema Neuro-nonfocal Derm-pale, no rash noted Current Inpatient Medications Medications (Trade) Dose Ordered Sig/Vijay Route Start Time Stop Time Status Last Admin Dose Admin Acetaminophen (Tylenol Tab) 650 mg Q4H PRN PO 07/12/16 04:00 08/11/16 03:59 07/15/16 16:02 650 MG Al Hydrox/Mg Hydrox/Simethicone (Maalox Max Susp) 15 ml Q4H PRN PO 07/12/16 04:00 08/11/16 03:59 Magnesium Hydroxide (Milk Of Magnesia Susp) 30 ml Q12H PRN PO 07/12/16 04:00 08/11/16 03:59 07/25/16 09:22 30 ML Ondansetron HCl (Zofran Inj) 4 mg Q6H PRN IV 07/12/16 04:00 08/11/16 03:59 Nitroglycerin (Nitrostat Tab) 0.4 mg UD PRN SL 07/12/16 04:00 08/11/16 03:59 Nitroglycerin (Nitroglycerin 2% Oint) 1 inch Q6 EXT 07/12/16 04:15 08/11/16 04:14 07/26/16 00:18 1 INCH Aspirin (Ecotrin Tab) 81 mg DAILY PO 07/12/16 09:00 08/11/16 08:59 07/26/16 08:56 81 MG Clopidogrel Bisulfate (plAVix TAB) 75 mg DAILY PO 07/12/16 09:00 08/11/16 08:59 07/26/16 08:57 75 MG Docusate Sodium (coLACE CAP) 100 mg BID PO 07/12/16 09:00 08/11/16 08:59 07/26/16 08:54 100 MG Finasteride (Proscar Tab) 5 mg DAILY PO 07/12/16 09:00 08/11/16 08:59 07/26/16 08:56 5 MG Insulin Aspart (novoLOG ASPART) SLIDING SCALE If C... ACHS SC 07/12/16 11:00 08/11/16 10:59 07/26/16 09:09 11 UNITS Glucose (Glucose 40% Gel) 15-30 GRAMS 15 GRAMS... UD PRN PO 07/12/16 08:45 08/11/16 08:44 Glucose (Glucose Chew Tab) 4-8 Tablets 4 Tabl... UD PRN PO 07/12/16 08:45 08/11/16 08:44 Dextrose (Dextrose 50% 50ML Syringe) 25-50ML OF 50% DW IV FOR... UD PRN IV 07/12/16 08:45 08/11/16 08:44 Glucagon (Glucagon Inj) 1 mg UD PRN SQ 07/12/16 08:45 08/11/16 08:44 Miscellaneous Information (Consult Glycemic Management Pharmacy) 1 ea UD PRN N/A 07/12/16 09:29 08/11/16 09:28 Nystatin (Mycostatin Powder) 1 appln DAILY EXT 07/13/16 09:00 08/12/16 08:59 07/26/16 08:57 1 APPLN Zolpidem Tartrate (Ambien Tab) 2.5 mg HS PRN PO 07/12/16 21:45 08/11/16 21:44 Enteral Nutritional Formula (Boost Glucose Control) 0.5 can TIDM PO 07/13/16 07:15 08/12/16 07:14 07/26/16 08:56 0.5 CAN Isosorbide Mononitrate (Imdur Ext Rel Tab) 120 mg QAM PO 07/15/16 08:00 08/14/16 08:59 07/26/16 08:55 120 MG Loratadine (Claritin Tab) 10 mg QAM PO 07/16/16 08:00 08/15/16 07:59 07/26/16 08:56 10 MG Carvedilol (Coreg Tab) 6.25 mg BID PO 07/15/16 20:00 08/14/16 19:59 07/26/16 08:57 6.25 MG Heparin Sodium (Porcine) (Heparin Sq 5000 Unit/0.5ml) 5,000 unit Q8 SQ 07/16/16 14:00 08/15/16 13:59 07/26/16 13:49 5,000 UNIT Morphine Sulfate 3 mg 3 mg Q3HWA PRN IV 07/21/16 13:15 08/04/16 13:14 07/26/16 12:23 3 MG Furosemide/Syringe (Lasix Inj/ Syringe) 8 ml @ 4 mls/min Q8 IV 07/22/16 14:00 08/21/16 13:59 07/26/16 13:42 4 MLS/MIN Sertraline HCl (Zoloft Tab) 50 mg QAM PO 07/23/16 08:00 08/22/16 07:59 07/26/16 08:56 50 MG Metolazone (Zaroxolyn Tab) 5 mg DAILY@0530 PO 07/26/16 05:30 08/25/16 05:29 07/26/16 05:24 5 MG Insulin Glargine (Lantus Solostar Pen) 16 unit QAM SC 07/26/16 08:30 08/25/16 08:29 Future Hold 07/26/16 10:01 16 UNIT Polyethylene (Miralax Powder Packet) 17 gm BID PO 07/26/16 09:30 08/25/16 09:29 07/26/16 09:58 17 GM Albuterol/ Ipratropium (Duoneb) 3 ml Q4RWA INH 07/26/16 16:00 08/25/16 15:59 07/26/16 14:03 3 ML Guaifenesin (Mucinex Contr Rel Tab) 600 mg Q12 PO 07/26/16 21:00 08/25/16 20:59 Last 24 Hours Test 07/25/16 20:05 07/26/16 05:45 07/26/16 07:39 07/26/16 10:43 Bedside Glucose 187 mg/dl 84 mg/dl 148 mg/dl Sodium Level 137 mmol/L Potassium Level 3.8 mmol/L Chloride Level 91 mmol/L Carbon Dioxide Level 39 mmol/L Anion Gap 7.0 mmol/L Blood Urea Nitrogen 32 mg/dl Creatinine 1.50 mg/dl Est Creatinine Clear Calc Drug Dose 38.6 ml/min Estimated GFR () 47.8 Estimated GFR (Non- 41.3 BUN/Creatinine Ratio 21.1 Random Glucose 68 mg/dl Calcium Level 8.3 mg/dl Test 07/26/16 11:27 07/26/16 16:50 Bedside Glucose 174 mg/dl 137 mg/dl Assessment & Plan 85 y/o M w/ CKD 4, copd, CAD, ischemic HF EF 40%, HTN, HL admitted with acute on chronic renal failure and volume overload. His prior baseline creatinine was in low 2's. CXR shows interstitial edema and pleural effusions CKD stage 4-creatinine improved from mid 2s to 1.5 in setting of iv diuretics. Given his lack of improvement in sx, would tighten up on diuresis at this time. -still marked dyspnea/plm edema though no peripheral edema. -there has been a lot of discussion of dialysis this admission but w/ his current creatinine this is not needed and should not really be discussed further at this time unless renal function changes significantly -bladder scan and straight cath/lujan for >200 ML retained urine -ensure daily standing weight and strict I/O -daily bmp -started 2 gm daily sodium limit and 1.2 L fluid limit given XR findings > reinforced w/ nursing recently ordered measures to promote/document diuresis -cont metolazone w/ diuretics; will retime lasix for better sleep Defer to primary service to ensure he is optimized from heart failure and pulmonary/ COPD standpoint. Question if pulm meds can be optimized and/or practices for mobilzing mucus; if there would be any role for chest CT but at this point needs more diuresis. pulm following re thoracentesis and/ or bronch case discussed with primary hospitalist and palliative care who are in agreement.
[2016-07-26] MEDS: ALBUMIN 25% 50 ML with FUROSEMIDE INJ 80 MG IV SCH ×2 (18:30)
[2016-07-26] MEDS: GUAIFENESIN 600 MG TABCR PO SCH (20:51)
[2016-07-27] VITALS (11 sets, daily range): BP systolic 100–150; BP diastolic 60–84; PULSE 50–84; TEMP 36.1–36.7; O2SAT 93–97; Ht 162.6 cm; Wt 99.5 kg
[2016-07-27] MEDS: METOLAZONE 5 MG TAB PO SCH (05:30)
[2016-07-27] MEDS: ALBUMIN 25% 50 ML with FUROSEMIDE INJ 80 MG IV SCH ×6 (06:16→20:45)
[2016-07-27] MEDS: HEPARIN SOD 5000 UNIT/0.5 ML CARP SQ SCH ×3 (06:31→20:49)
[2016-07-27] MEDS: ALBUT/IPRATROP 3MG/0.5MG NEB 3 ML VIAL INH SCH ×3 (07:15→19:42)
[2016-07-27 07:18] LABS: BUN/CREATININE RATIO 20.6 (10-20); CALCIUM 9.1 mg/dl (8.5-10.1); CREATININE 1.6 mg/dl (0.60-1.40); POTASSIUM 3.6 mmol/L (3.5-5.1)
[2016-07-27] MEDS ORDERED: TAP WATER ENEMA PR ONE (07:45)
[2016-07-27] MEDS: BOOST GLUCOSE CONTROL PO SCH ×5 (08:00→18:08)
[2016-07-27] MEDS: ISOSORBIDE MONONITRATE 60 MG TABCR PO SCH (08:07)
[2016-07-27] MEDS: FINASTERIDE 5 MG TAB PO SCH (08:07)
[2016-07-27] MEDS: NYSTATIN POWDER 15GM BTL EXT SCH (08:07)
[2016-07-27] MEDS: GUAIFENESIN 600 MG TABCR PO SCH ×2 (08:08→20:46)
[2016-07-27] MEDS: CLOPIDOGREL BISULFATE 75 MG TAB PO SCH (08:09)
[2016-07-27] MEDS: ASPIRIN 81 MG ECTAB PO SCH (08:09)
[2016-07-27] MEDS: CARVEDILOL 6.25 MG TAB PO SCH ×2 (08:09→20:47)
[2016-07-27] MEDS: DOCUSATE SODIUM 100 MG CAP PO SCH ×2 (08:09→20:48)
[2016-07-27] MEDS: POLYETHYLENE (MIRALAX) 17 GM PACK PO SCH ×2 (08:10→20:47)
[2016-07-27] MEDS: SERTRALINE HCL 50 MG TAB PO SCH (08:10)
[2016-07-27] MEDS: LORATADINE 10 MG TAB PO SCH (08:10)
[2016-07-27] MEDS: INSULIN ASPART 100 UNITS/ML 3 ML PEN SC SCH ×4 (09:27→20:44)
--- NOTE | 2016-07-27 09:51 | Nephrology Progress Note ---
Nephrology Progress Note Date of Service: Jul 27, 2016. Subjective son Frank at bedside on rounds today. pt had dose of ambien last night which caused agitation > sleep and now exhausted/sleepign soundly. breathing a bit better; got 1.5 kg off w/ diuresis. BP improved w/ med changes. appetite variable. ambulated. straight cath'd for 220 mL; other scan was about 100 Objective Date Time Temp Pulse Resp B/P Pulse Ox O2 Delivery O2 Flow Rate FiO2 07/27/16 08:05 62 20 101/67 97 Nasal Cannula 3.0 Humidified Oxygen 07/27/16 08:00 118/78 07/27/16 00:50 36.7 66 16 125/69 93 07/27/16 00:00 Nasal Cannula 2.0 07/26/16 20:48 98/62 07/26/16 19:42 104/56 07/26/16 18:57 106/58 07/26/16 16:00 Nasal Cannula 2.0 07/26/16 15:54 36.8 63 18 98/53 95 Nasal Cannula 3.0 07/26/16 14:03 66 16 99 Nasal Cannula 4.0 07/26/16 13:40 104/68 07/26/16 12:00 94/66 Physical Exam: General-obese, on 3L02 NC this am, tired Eyes-no scleral icterus ENT-mmm Neck-supple Lungs-somewhat improved air mvt throughout posterior torres w/ diffuse fine crackles Heart-RRR Abdomen-bs+ s/nt/nd, no lujan Extremities-2+ pedal edema Neuro-nonfocal Derm-pale, no rash noted Current Inpatient Medications Medications (Trade) Dose Ordered Sig/Vijay Route Start Time Stop Time Status Last Admin Dose Admin Acetaminophen (Tylenol Tab) 650 mg Q4H PRN PO 07/12/16 04:00 08/11/16 03:59 07/15/16 16:02 650 MG Al Hydrox/Mg Hydrox/Simethicone (Maalox Max Susp) 15 ml Q4H PRN PO 07/12/16 04:00 08/11/16 03:59 Magnesium Hydroxide (Milk Of Magnesia Susp) 30 ml Q12H PRN PO 07/12/16 04:00 08/11/16 03:59 07/25/16 09:22 30 ML Ondansetron HCl (Zofran Inj) 4 mg Q6H PRN IV 07/12/16 04:00 08/11/16 03:59 Nitroglycerin (Nitrostat Tab) 0.4 mg UD PRN SL 07/12/16 04:00 08/11/16 03:59 Aspirin (Ecotrin Tab) 81 mg DAILY PO 07/12/16 09:00 08/11/16 08:59 07/27/16 08:09 81 MG Clopidogrel Bisulfate (plAVix TAB) 75 mg DAILY PO 07/12/16 09:00 08/11/16 08:59 07/27/16 08:09 75 MG Docusate Sodium (coLACE CAP) 100 mg BID PO 07/12/16 09:00 08/11/16 08:59 07/27/16 08:09 100 MG Finasteride (Proscar Tab) 5 mg DAILY PO 07/12/16 09:00 08/11/16 08:59 07/27/16 08:07 5 MG Insulin Aspart (novoLOG ASPART) SLIDING SCALE If C... ACHS SC 07/12/16 11:00 08/11/16 10:59 07/26/16 20:56 4 UNITS Glucose (Glucose 40% Gel) 15-30 GRAMS 15 GRAMS... UD PRN PO 07/12/16 08:45 08/11/16 08:44 Glucose (Glucose Chew Tab) 4-8 Tablets 4 Tabl... UD PRN PO 07/12/16 08:45 08/11/16 08:44 Dextrose (Dextrose 50% 50ML Syringe) 25-50ML OF 50% DW IV FOR... UD PRN IV 07/12/16 08:45 08/11/16 08:44 Glucagon (Glucagon Inj) 1 mg UD PRN SQ 07/12/16 08:45 08/11/16 08:44 Miscellaneous Information (Consult Glycemic Management Pharmacy) 1 ea UD PRN N/A 07/12/16 09:29 08/11/16 09:28 Nystatin (Mycostatin Powder) 1 appln DAILY EXT 07/13/16 09:00 08/12/16 08:59 07/27/16 08:07 1 APPLN Zolpidem Tartrate (Ambien Tab) 2.5 mg HS PRN PO 07/12/16 21:45 08/11/16 21:44 07/26/16 20:57 2.5 MG Enteral Nutritional Formula (Boost Glucose Control) 0.5 can TIDM PO 07/13/16 07:15 08/12/16 07:14 07/27/16 08:06 0.5 CAN Loratadine (Claritin Tab) 10 mg QAM PO 07/16/16 08:00 08/15/16 07:59 07/27/16 08:10 10 MG Carvedilol (Coreg Tab) 6.25 mg BID PO 07/15/16 20:00 08/14/16 19:59 07/27/16 08:09 6.25 MG Heparin Sodium (Porcine) (Heparin Sq 5000 Unit/0.5ml) 5,000 unit Q8 SQ 07/16/16 14:00 08/15/16 13:59 07/26/16 20:57 5,000 UNIT Morphine Sulfate (MoRPHine SULFATE INJ) 3 mg Q3HWA PRN IV 07/21/16 13:15 08/04/16 13:14 07/26/16 18:41 3 MG Sertraline HCl (Zoloft Tab) 50 mg QAM PO 07/23/16 08:00 08/22/16 07:59 07/27/16 08:10 50 MG Metolazone (Zaroxolyn Tab) 5 mg DAILY@0530 PO 07/26/16 05:30 08/25/16 05:29 07/27/16 05:30 5 MG Insulin Glargine (Lantus Solostar Pen) 16 unit QAM SC 07/26/16 08:30 08/25/16 08:29 Future Hold 07/26/16 10:01 16 UNIT Polyethylene (Miralax Powder Packet) 17 gm BID PO 07/26/16 09:30 08/25/16 09:29 07/27/16 08:10 17 GM Albuterol/ Ipratropium (Duoneb) 3 ml Q4RWA INH 07/26/16 16:00 08/25/16 15:59 07/27/16 07:15 3 ML Guaifenesin (Mucinex Contr Rel Tab) 600 mg Q12 PO 07/26/16 21:00 08/25/16 20:59 07/27/16 08:08 600 MG Isosorbide Mononitrate 60 mg 60 mg QAM PO 07/27/16 08:00 08/26/16 07:59 07/27/16 08:07 60 MG Furosemide/ Albumin Human (Lasix Inj/ Albumin 25%) 58 ml @ 60 mls/hr DAILY@0600,1200,1800 IV 07/26/16 18:10 08/25/16 18:09 07/27/16 06:16 60 MLS/HR Last 24 Hours Test 07/26/16 10:43 07/26/16 11:27 07/26/16 16:50 07/26/16 19:54 Bedside Glucose 148 mg/dl 174 mg/dl 137 mg/dl 203 mg/dl Test 07/27/16 06:08 07/27/16 07:43 Sodium Level 137 mmol/L Potassium Level 3.6 mmol/L Chloride Level 91 mmol/L Carbon Dioxide Level 40 mmol/L Anion Gap 6.0 mmol/L Blood Urea Nitrogen 33 mg/dl Creatinine 1.60 mg/dl Est Creatinine Clear Calc Drug Dose 35.8 ml/min Estimated GFR () 44.2 Estimated GFR (Non- 38.2 BUN/Creatinine Ratio 20.6 Random Glucose 66 mg/dl Calcium Level 9.1 mg/dl Magnesium Level 3.0 mg/dl Bedside Glucose 96 mg/dl Assessment & Plan 85 y/o M w/ CKD 4, copd, CAD, ischemic HF EF 40%, HTN, HL admitted with acute on chronic renal failure and volume overload. His prior baseline creatinine was in low 2's. CXR shows interstitial edema and pleural effusions CKD stage 4-creatinine improved from mid 2s to 1.5 in setting of iv diuretics. Given his lack of improvement in sx, would tighten up on diuresis at this time. -still marked dyspnea/plm edema though no peripheral edema. -there has been a lot of discussion of dialysis this admission but w/ his current creatinine this is not needed and should not really be discussed further at this time unless renal function changes significantly -ck PVR q 72 hrs (next would be 07/30) -appreciate nursing efforts to ensure daily standing weight and strict I/O -daily bmp -started 2 gm daily sodium limit and 1.2 L fluid limit given XR findings > reinforced w/ nursing recently ordered measures to promote/document diuresis -cont metolazone w/ diuretics<added albumin to lasix; will retime lasix for better sleep HTN -acceptable > would ask palliative/hospitalist to consider lower morphine doses if hypotension further limits diuresis > has done better w/ diuresis past 24 hrs after other med changes (stopped ntg paste, lowered imdur) Defer to primary service to ensure he is optimized from heart failure and pulmonary/ COPD standpoint. Question if pulm meds can be optimized and/or practices for mobilizing mucus; if there would be any role for chest CT but at this point mostly needs more diuresis. pulm following re thoracentesis and/ or bronch Appreciate consult; will follow with you.
[2016-07-27] MEDS ORDERED: NURSING VERBAL MED ORDER ONE (10:45)
--- NOTE | 2016-07-27 10:55 | Pharmacy Progress Note ---
Glycemic Control: Progress Nt Date of Service Jul 27, 2016. Scope Glycemic Pharmacist consulted by Dr Velazquez on 07/12/16 for glycemic control and to write orders per [facility] inpatient glycemic control protocol. Objective Accuchecks BSG (last 24hrs): Test 07/26/16 11:27 07/26/16 16:50 07/26/16 19:54 07/27/16 06:08 Bedside Glucose 174 mg/dl (70-99) 137 mg/dl (70-99) 203 mg/dl (70-99) Random Glucose 66 mg/dl (70-99) Test 07/27/16 07:43 Bedside Glucose 96 mg/dl (70-99) Laboratory Data (last 24hrs) Test 07/27/16 06:08 Anion Gap 6.0 mmol/L BUN/Creatinine Ratio 20.6 Blood Urea Nitrogen 33 mg/dl Creatinine 1.60 mg/dl Potassium Level 3.6 mmol/L Sodium Level 137 mmol/L HbA1c: Test 07/13/16 05:51 Hemoglobin A1c 7.6 % (4.5-5.6) H Recent Pertinent Medications Outpatient Anti-diabetic Regimen: * glipizide 10mg PO BID with meals * sitagliptin 50mg PO daily * A1c = 7.6 % 07/13/16 The patient is currently receiving: * Basal insulin: Lantus 16 units daily * Correctional Insulin: NovoLog Correction per scale AC+HS Goal Range: Low 100 mg/dL - High 140 mg/dL Correction Factor: 20 mg/dL/unit * Prandial insulin: Per carb ratio of 1 unit per 5 grams CHO consumed * Oral Agents: none at this time Assessment & Plan ASSESSMENT: 07/25/16 * Mr. Aparicio's BSGs have begun to trend upward throughout the day with a precipitous fall overnight. * Currently, Lantus is BID - may benefit from daily (in the morning) Lantus to help with trend * A1c as an outpatient shows appropriate control for age/comorbidities * at discharge, likely can continue oral medications with renal dose adjustment as needed * Boost glucose control will make glycemic management increasingly difficult as the carbohydrates are harder to cover appropriately * continue covering CHO in boost 07/26/16 * Fasting BSG 84 mg/dL * Reduce Lantus by 20% * Maintain Novolog for now * Of note, patient refused lunch time insulin- expect BSGs to trend >200 mg/dL if this continues 07/27/16 * Fasting BSG 96 mg/dL, Lunch BSG 104 mg/dL * Patient very lethargic today after receiving ambien 2.5 mg this AM- not eating breakfast or lunch * I planned to reduce Lantus today but at this point I will hold Lantus altogether * Reassess in the AM- patient may need Lantus if eating * No other changes necessary at this time PLAN FOR INPATIENT GLYCEMIC CONTROL: * Hold Lantus today * NovoLog AC and HS * Correction factor: 20mg/dL/unit * Carb ratio: 1 unit per 5 g of CHO consumed * Goal range: 100-140mg/dL * A1c - current * added to discharge instructions RECOMMENDATIONS FOR DISCHARGE: * continue home regimen with renal adjustments when needed * Please note that the plan above was derived based on current level of insulin resistance and hospital stress. These recommendations are appropriate for inpatient admission only. Plan of care upon discharge will need to be reassessed to avoid potential outpatient hypo/hyperglycemia. Thank you.
--- NOTE | 2016-07-27 15:00 | Pulmonology Progress Note ---
Pulmonary Progress Note Date of Service Jul 27, 2016. Attending Howard Fernandez Subjective Patient with severe fatigue and dyspnea at rest Objective Patient arousable but fatigued today and notable dyspnea using accessory muscles Vital signs: Reviewed Respiratory: Inspiratory and expiratory crackles appreciated greatest at the bases Cardiac: S1 and S2 distant heart sounds regular rate Extremities: 2+ pitting edema in the dependent regions Assessment & Plan 85-year-old male with CK D4, ischemic cardiomyopathy and progressive dyspnea on exertion with pleural effusions: #1 pleural effusion's: Previous ultrasonic evaluation showed continued bilateral pleural effusions as well as pulmonary edema via B-line sign. At this time thoracic surgery has been consultative for diagnostic/therapeutic thoracentesis. #2 chronic bronchitis: Agree with Devon Isaac and continue current medical regimen. Data Medications: Current Inpatient Medications Medications (Trade) Dose Ordered Sig/Vijay Route Start Time Stop Time Status Last Admin Dose Admin Acetaminophen (Tylenol Tab) 650 mg Q4H PRN PO 07/12/16 04:00 08/11/16 03:59 07/15/16 16:02 650 MG Al Hydrox/Mg Hydrox/Simethicone (Maalox Max Susp) 15 ml Q4H PRN PO 07/12/16 04:00 08/11/16 03:59 Magnesium Hydroxide (Milk Of Magnesia Susp) 30 ml Q12H PRN PO 07/12/16 04:00 08/11/16 03:59 07/25/16 09:22 30 ML Ondansetron HCl (Zofran Inj) 4 mg Q6H PRN IV 07/12/16 04:00 08/11/16 03:59 Nitroglycerin (Nitrostat Tab) 0.4 mg UD PRN SL 07/12/16 04:00 08/11/16 03:59 Aspirin (Ecotrin Tab) 81 mg DAILY PO 07/12/16 09:00 08/11/16 08:59 07/27/16 08:09 81 MG Clopidogrel Bisulfate (plAVix TAB) 75 mg DAILY PO 07/12/16 09:00 08/11/16 08:59 07/27/16 08:09 75 MG Docusate Sodium (coLACE CAP) 100 mg BID PO 07/12/16 09:00 08/11/16 08:59 07/27/16 08:09 100 MG Finasteride (Proscar Tab) 5 mg DAILY PO 07/12/16 09:00 08/11/16 08:59 07/27/16 08:07 5 MG Insulin Aspart (novoLOG ASPART) SLIDING SCALE If C... ACHS SC 07/12/16 11:00 08/11/16 10:59 07/26/16 20:56 4 UNITS Glucose (Glucose 40% Gel) 15-30 GRAMS 15 GRAMS... UD PRN PO 07/12/16 08:45 08/11/16 08:44 Glucose (Glucose Chew Tab) 4-8 Tablets 4 Tabl... UD PRN PO 07/12/16 08:45 08/11/16 08:44 Dextrose (Dextrose 50% 50ML Syringe) 25-50ML OF 50% DW IV FOR... UD PRN IV 07/12/16 08:45 08/11/16 08:44 Glucagon (Glucagon Inj) 1 mg UD PRN SQ 07/12/16 08:45 08/11/16 08:44 Miscellaneous Information (Consult Glycemic Management Pharmacy) 1 ea UD PRN N/A 07/12/16 09:29 08/11/16 09:28 Nystatin (Mycostatin Powder) 1 appln DAILY EXT 07/13/16 09:00 08/12/16 08:59 07/27/16 08:07 1 APPLN Enteral Nutritional Formula (Boost Glucose Control) 0.5 can TIDM PO 07/13/16 07:15 08/12/16 07:14 07/26/16 17:49 0.5 CAN Loratadine (Claritin Tab) 10 mg QAM PO 07/16/16 08:00 08/15/16 07:59 07/27/16 08:10 10 MG Carvedilol (Coreg Tab) 6.25 mg BID PO 07/15/16 20:00 08/14/16 19:59 07/27/16 08:09 6.25 MG Heparin Sodium (Porcine) (Heparin Sq 5000 Unit/0.5ml) 5,000 unit Q8 SQ 07/16/16 14:00 08/15/16 13:59 07/27/16 13:57 5,000 UNIT Morphine Sulfate (MoRPHine SULFATE INJ) 3 mg Q3HWA PRN IV 07/21/16 13:15 08/04/16 13:14 07/26/16 18:41 3 MG Sertraline HCl (Zoloft Tab) 50 mg QAM PO 07/23/16 08:00 08/22/16 07:59 07/27/16 08:10 50 MG Metolazone (Zaroxolyn Tab) 5 mg DAILY@0530 PO 07/26/16 05:30 08/25/16 05:29 07/27/16 05:30 5 MG Polyethylene (Miralax Powder Packet) 17 gm BID PO 07/26/16 09:30 08/25/16 09:29 07/27/16 08:10 17 GM Albuterol/ Ipratropium (Duoneb) 3 ml Q4RWA INH 07/26/16 16:00 08/25/16 15:59 07/27/16 07:15 3 ML Guaifenesin (Mucinex Contr Rel Tab) 600 mg Q12 PO 07/26/16 21:00 08/25/16 20:59 07/27/16 08:08 600 MG Isosorbide Mononitrate 60 mg 60 mg QAM PO 07/27/16 08:00 08/26/16 07:59 07/27/16 08:07 60 MG Furosemide/ Albumin Human (Lasix Inj/ Albumin 25%) 58 ml @ 60 mls/hr DAILY@0600,1200,1800 IV 07/26/16 18:10 08/25/16 18:09 07/27/16 12:03 60 MLS/HR I & O: 24-Hour Column 07/27/16 07:59 Intake Total 700 ml Output Total 1320 ml Balance -620 ml Vital Signs: Date Time Temp Pulse Resp B/P Pulse Ox O2 Delivery O2 Flow Rate FiO2 07/27/16 13:50 36.1 55 20 110/68 96 2.0 07/27/16 12:35 36.2 50 20 100/60 96 Nasal Cannula 2.0 07/27/16 12:10 36.2 84 20 124/78 95 Nasal Cannula 3.0 07/27/16 08:30 Nasal Cannula 3.0 07/27/16 08:05 62 20 101/67 97 Nasal Cannula 3.0 Humidified Oxygen 07/27/16 08:00 118/78 07/27/16 00:50 36.7 66 16 125/69 93 07/27/16 00:00 Nasal Cannula 2.0 07/26/16 20:48 98/62 07/26/16 19:42 104/56 07/26/16 18:57 106/58 07/26/16 16:00 Nasal Cannula 2.0 07/26/16 15:54 36.8 63 18 98/53 95 Nasal Cannula 3.0 Laboratory Results: Last 24 Hours Test 07/26/16 16:50 07/26/16 19:54 07/27/16 06:08 07/27/16 07:43 Bedside Glucose 137 mg/dl 203 mg/dl 96 mg/dl Sodium Level 137 mmol/L Potassium Level 3.6 mmol/L Chloride Level 91 mmol/L Carbon Dioxide Level 40 mmol/L Anion Gap 6.0 mmol/L Blood Urea Nitrogen 33 mg/dl Creatinine 1.60 mg/dl Est Creatinine Clear Calc Drug Dose 35.8 ml/min Estimated GFR () 44.2 Estimated GFR (Non- 38.2 BUN/Creatinine Ratio 20.6 Random Glucose 66 mg/dl Calcium Level 9.1 mg/dl Magnesium Level 3.0 mg/dl Test 07/27/16 11:07 Bedside Glucose 104 mg/dl
--- NOTE | 2016-07-27 15:26 | Hospitalist Progress Note ---
Hospitalist Progress Note Date of Service Jul 27, 2016. Subjective Pt evaluation today including: conversation w/ patient, physical exam, chart review, lab review, review of studies, review of inpatient medication list Patient had episode of lethargy after receiving ativan however patient oriented Patient noticed to be transiently bradycardic Patient asymptomatic. Denies any chest pain or SOB Constitutional: No fever, No weight loss Eyes: No worsening of vision ENT: No hearing loss Respiratory: + shortness of breath, No cough Cardiovascular: No chest pain, No edema Abdomen: No constipation, No pain, No vomiting Musculoskeletal: No joint pain Male : No dysuria Neurologic: No memory loss Psychiatric: No depression symptoms Endo: + fatigue Medications Current Inpatient Medications Medications (Trade) Dose Ordered Sig/Vijay Route Start Time Stop Time Status Last Admin Dose Admin Acetaminophen (Tylenol Tab) 650 mg Q4H PRN PO 07/12/16 04:00 08/11/16 03:59 07/15/16 16:02 650 MG Al Hydrox/Mg Hydrox/Simethicone (Maalox Max Susp) 15 ml Q4H PRN PO 07/12/16 04:00 08/11/16 03:59 Magnesium Hydroxide (Milk Of Magnesia Susp) 30 ml Q12H PRN PO 07/12/16 04:00 08/11/16 03:59 07/25/16 09:22 30 ML Ondansetron HCl (Zofran Inj) 4 mg Q6H PRN IV 07/12/16 04:00 08/11/16 03:59 Nitroglycerin (Nitrostat Tab) 0.4 mg UD PRN SL 07/12/16 04:00 08/11/16 03:59 Aspirin (Ecotrin Tab) 81 mg DAILY PO 07/12/16 09:00 08/11/16 08:59 07/27/16 08:09 81 MG Clopidogrel Bisulfate (plAVix TAB) 75 mg DAILY PO 07/12/16 09:00 08/11/16 08:59 07/27/16 08:09 75 MG Docusate Sodium (coLACE CAP) 100 mg BID PO 07/12/16 09:00 08/11/16 08:59 07/27/16 08:09 100 MG Finasteride (Proscar Tab) 5 mg DAILY PO 07/12/16 09:00 08/11/16 08:59 07/27/16 08:07 5 MG Insulin Aspart (novoLOG ASPART) SLIDING SCALE If C... ACHS SC 07/12/16 11:00 08/11/16 10:59 07/26/16 20:56 4 UNITS Glucose (Glucose 40% Gel) 15-30 GRAMS 15 GRAMS... UD PRN PO 07/12/16 08:45 08/11/16 08:44 Glucose (Glucose Chew Tab) 4-8 Tablets 4 Tabl... UD PRN PO 07/12/16 08:45 08/11/16 08:44 Dextrose (Dextrose 50% 50ML Syringe) 25-50ML OF 50% DW IV FOR... UD PRN IV 07/12/16 08:45 08/11/16 08:44 Glucagon (Glucagon Inj) 1 mg UD PRN SQ 07/12/16 08:45 08/11/16 08:44 Miscellaneous Information (Consult Glycemic Management Pharmacy) 1 ea UD PRN N/A 07/12/16 09:29 08/11/16 09:28 Nystatin (Mycostatin Powder) 1 appln DAILY EXT 07/13/16 09:00 08/12/16 08:59 07/27/16 08:07 1 APPLN Enteral Nutritional Formula (Boost Glucose Control) 0.5 can TIDM PO 07/13/16 07:15 08/12/16 07:14 07/26/16 17:49 0.5 CAN Loratadine (Claritin Tab) 10 mg QAM PO 07/16/16 08:00 08/15/16 07:59 07/27/16 08:10 10 MG Carvedilol (Coreg Tab) 6.25 mg BID PO 07/15/16 20:00 08/14/16 19:59 07/27/16 08:09 6.25 MG Heparin Sodium (Porcine) (Heparin Sq 5000 Unit/0.5ml) 5,000 unit Q8 SQ 07/16/16 14:00 08/15/16 13:59 07/27/16 13:57 5,000 UNIT Morphine Sulfate (MoRPHine SULFATE INJ) 3 mg Q3HWA PRN IV 07/21/16 13:15 08/04/16 13:14 07/26/16 18:41 3 MG Sertraline HCl (Zoloft Tab) 50 mg QAM PO 07/23/16 08:00 08/22/16 07:59 07/27/16 08:10 50 MG Metolazone (Zaroxolyn Tab) 5 mg DAILY@0530 PO 07/26/16 05:30 08/25/16 05:29 07/27/16 05:30 5 MG Polyethylene (Miralax Powder Packet) 17 gm BID PO 07/26/16 09:30 08/25/16 09:29 07/27/16 08:10 17 GM Albuterol/ Ipratropium (Duoneb) 3 ml Q4RWA INH 07/26/16 16:00 08/25/16 15:59 07/27/16 07:15 3 ML Guaifenesin (Mucinex Contr Rel Tab) 600 mg Q12 PO 07/26/16 21:00 08/25/16 20:59 07/27/16 08:08 600 MG Isosorbide Mononitrate 60 mg 60 mg QAM PO 07/27/16 08:00 08/26/16 07:59 07/27/16 08:07 60 MG Furosemide/ Albumin Human (Lasix Inj/ Albumin 25%) 58 ml @ 60 mls/hr DAILY@0600,1200,1800 IV 07/26/16 18:10 08/25/16 18:09 07/27/16 12:03 60 MLS/HR Objective Vital Signs Date Time Temp Pulse Resp B/P Pulse Ox O2 Delivery O2 Flow Rate FiO2 07/27/16 13:50 36.1 55 20 110/68 96 2.0 07/27/16 12:35 36.2 50 20 100/60 96 Nasal Cannula 2.0 07/27/16 12:10 36.2 84 20 124/78 95 Nasal Cannula 3.0 07/27/16 08:30 Nasal Cannula 3.0 07/27/16 08:05 62 20 101/67 97 Nasal Cannula 3.0 Humidified Oxygen 07/27/16 08:00 118/78 07/27/16 00:50 36.7 66 16 125/69 93 07/27/16 00:00 Nasal Cannula 2.0 07/26/16 20:48 98/62 07/26/16 19:42 104/56 07/26/16 18:57 106/58 07/26/16 16:00 Nasal Cannula 2.0 07/26/16 15:54 36.8 63 18 98/53 95 Nasal Cannula 3.0 Physical Exam General Appearance: WD/WN, no apparent distress Eyes: normal inspection ENT: normal ENT inspection Neck: supple Respiratory/Chest: chest non-tender, + decreased breath sounds, + crackles Cardiovascular: regular rate, rhythm Abdomen: normal bowel sounds, non tender Extremities: normal range of motion, non-tender Neurologic/Psychiatric: track service person II-XII nml as tested, no motor/sensory deficits, oriented x 3 Skin: normal color Laboratory Results Last 24 Hours Test 07/26/16 16:50 07/26/16 19:54 07/27/16 06:08 07/27/16 07:43 Bedside Glucose 137 mg/dl 203 mg/dl 96 mg/dl Sodium Level 137 mmol/L Potassium Level 3.6 mmol/L Chloride Level 91 mmol/L Carbon Dioxide Level 40 mmol/L Anion Gap 6.0 mmol/L Blood Urea Nitrogen 33 mg/dl Creatinine 1.60 mg/dl Est Creatinine Clear Calc Drug Dose 35.8 ml/min Estimated GFR () 44.2 Estimated GFR (Non- 38.2 BUN/Creatinine Ratio 20.6 Random Glucose 66 mg/dl Calcium Level 9.1 mg/dl Magnesium Level 3.0 mg/dl Test 07/27/16 11:07 Bedside Glucose 104 mg/dl Assessment and Plan Acute on Chronic Kidney Disease - hypervolemic - Cr trending up today/1.7 - per nephrology no dialysis indications at this time - patient had u/o of 1430 cc last night - currently on Lasix 80 mg tid with cont metolazone Bradycardia - decrease coreg to 3.125 mg bid Hypoxic Respiratory Failure - suspect 2/2 to volume - appreciate pulmonary input - cont mucinex - duonebs q6 hours - appreciate palliative care input 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
[2016-07-28] VITALS (14 sets, daily range): BP systolic 104–130; BP diastolic 56–85; PULSE 55–83; TEMP 36.2–36.9; O2SAT 91–99
[2016-07-28] MEDS: METOLAZONE 5 MG TAB PO SCH (05:50)
[2016-07-28] MEDS: HEPARIN SOD 5000 UNIT/0.5 ML CARP SQ SCH ×3 (05:50→20:46)
[2016-07-28 05:59] LABS: HEMATOCRIT 34.3 % (42-52); MEAN CELL VOLUME 96.3 fL (80-100); MEAN CORPUSCULAR HEMOGLOBIN 30.6 pg (25-34); MEAN CORPUSCULAR HGB CONC 31.8 g/dl (32-36); PLATELET COUNT 244 K/uL (130-400); RED BLOOD COUNT 3.56 M/uL (4.7-6.1); WHITE BLOOD COUNT 7.45 K/uL (4.8-10.8)
[2016-07-28] MEDS: ALBUMIN 25% 50 ML with FUROSEMIDE INJ 80 MG IV SCH ×6 (06:26→18:43)
[2016-07-28 06:28] LABS: BUN/CREATININE RATIO 20.2 (10-20); CREATININE 1.6 mg/dl (0.60-1.40); POTASSIUM 3.5 mmol/L (3.5-5.1)
[2016-07-28] MEDS: ALBUT/IPRATROP 3MG/0.5MG NEB 3 ML VIAL INH SCH ×4 (07:38→19:36)
[2016-07-28] MEDS: LORATADINE 10 MG TAB PO SCH (08:13)
[2016-07-28] MEDS: ISOSORBIDE MONONITRATE 60 MG TABCR PO SCH (08:13)
[2016-07-28] MEDS: SERTRALINE HCL 50 MG TAB PO SCH (08:14)
[2016-07-28] MEDS: CLOPIDOGREL BISULFATE 75 MG TAB PO SCH (08:14)
[2016-07-28] MEDS: CARVEDILOL 6.25 MG TAB PO SCH ×2 (08:14→20:39)
[2016-07-28] MEDS: ASPIRIN 81 MG ECTAB PO SCH (08:14)
[2016-07-28] MEDS: GUAIFENESIN 600 MG TABCR PO SCH ×2 (08:14→20:40)
[2016-07-28] MEDS: DOCUSATE SODIUM 100 MG CAP PO SCH ×2 (08:15→20:39)
[2016-07-28] MEDS: FINASTERIDE 5 MG TAB PO SCH (08:15)
[2016-07-28] MEDS: POLYETHYLENE (MIRALAX) 17 GM PACK PO SCH ×2 (08:15→20:39)
[2016-07-28] MEDS: BOOST GLUCOSE CONTROL PO SCH ×4 (08:16→17:00)
[2016-07-28] MEDS: NYSTATIN POWDER 15GM BTL EXT SCH (08:17)
[2016-07-28] MEDS: INSULIN ASPART 100 UNITS/ML 3 ML PEN SC SCH ×4 (09:02→20:46)
--- NOTE | 2016-07-28 09:24 | SURGERY PROGRESS NOTE ---
DATE: 07/28/2016 Axel Aparicio was seen this morning on 07/28/2016. I performed a bedside ultrasound as I was going to rowena him to perform a thoracentesis on the right. With the patient sitting upright and using the ultrasound, I really saw very little fluid on either side. I do not think this is enough to tap, and if we do, I do not think it is going to make that big of a difference. I think the fact that this man is 85 years old, has more to do with his dyspnea and shortness of breath than the fluid in his chest. I will discuss this with his physicians.
--- NOTE | 2016-07-28 09:54 | Nephrology Progress Note ---
Nephrology Progress Note Date of Service: Jul 28, 2016. Subjective breathing better. 7 kg off w/ diuretics past 48 hrs. talking about old times. still harsh productive cough. eating, drinking. pt unaware of COPD dx, which may be presumptive (pulm following) Objective Date Time Temp Pulse Resp B/P Pulse Ox O2 Delivery O2 Flow Rate FiO2 07/28/16 08:57 36.4 61 20 113/63 97 Nasal Cannula 2.0 Humidified Oxygen 07/28/16 07:49 Nasal Cannula 07/28/16 07:47 36.3 65 18 118/72 97 Nasal Cannula 07/28/16 07:38 64 16 98 BiPAP/CPAP 4.0 07/28/16 06:25 36.9 72 18 116/56 99 CPAP 4.0 07/28/16 01:09 Nasal Cannula 3.0 07/28/16 00:15 67 20 112/66 91 Room Air 07/27/16 21:45 52 18 122/65 95 BiPAP 07/27/16 21:05 50 110/60 07/27/16 16:20 93 Nasal Cannula 3.0 07/27/16 15:59 74 20 150/84 93 3.0 07/27/16 15:28 69 16 95 Nasal Cannula 4.0 07/27/16 13:50 36.1 55 20 110/68 96 2.0 07/27/16 12:35 36.2 50 20 100/60 96 Nasal Cannula 2.0 07/27/16 12:10 36.2 84 20 124/78 95 Nasal Cannula 3.0 Physical Exam: General-obese, on 4L02 NC this am, up in chair, more rested and mobile than I ' ve seen him on prev exams Eyes-no scleral icterus ENT-mmm Neck-supple Lungs-better but still limited air mvt, diminished BL bases, diffuse fine crackles Heart-RRR Abdomen-bs+ s/nt/nd, no lujan Extremities-2+ pedal edema L foot, less on R Neuro-nonfocal Derm-pale, no rash noted Current Inpatient Medications Medications (Trade) Dose Ordered Sig/Vijay Route Start Time Stop Time Status Last Admin Dose Admin Acetaminophen (Tylenol Tab) 650 mg Q4H PRN PO 07/12/16 04:00 08/11/16 03:59 07/15/16 16:02 650 MG Al Hydrox/Mg Hydrox/Simethicone (Maalox Max Susp) 15 ml Q4H PRN PO 07/12/16 04:00 08/11/16 03:59 Magnesium Hydroxide (Milk Of Magnesia Susp) 30 ml Q12H PRN PO 07/12/16 04:00 08/11/16 03:59 07/25/16 09:22 30 ML Ondansetron HCl (Zofran Inj) 4 mg Q6H PRN IV 07/12/16 04:00 08/11/16 03:59 Nitroglycerin (Nitrostat Tab) 0.4 mg UD PRN SL 07/12/16 04:00 08/11/16 03:59 Aspirin (Ecotrin Tab) 81 mg DAILY PO 07/12/16 09:00 08/11/16 08:59 07/28/16 08:14 81 MG Clopidogrel Bisulfate (plAVix TAB) 75 mg DAILY PO 07/12/16 09:00 08/11/16 08:59 07/28/16 08:14 75 MG Docusate Sodium (coLACE CAP) 100 mg BID PO 07/12/16 09:00 08/11/16 08:59 07/28/16 08:15 100 MG Finasteride (Proscar Tab) 5 mg DAILY PO 07/12/16 09:00 08/11/16 08:59 07/28/16 08:15 5 MG Insulin Aspart (novoLOG ASPART) SLIDING SCALE If C... ACHS SC 07/12/16 11:00 08/11/16 10:59 07/28/16 09:02 6 UNITS Glucose (Glucose 40% Gel) 15-30 GRAMS 15 GRAMS... UD PRN PO 07/12/16 08:45 08/11/16 08:44 Glucose (Glucose Chew Tab) 4-8 Tablets 4 Tabl... UD PRN PO 07/12/16 08:45 08/11/16 08:44 Dextrose (Dextrose 50% 50ML Syringe) 25-50ML OF 50% DW IV FOR... UD PRN IV 07/12/16 08:45 08/11/16 08:44 Glucagon (Glucagon Inj) 1 mg UD PRN SQ 07/12/16 08:45 08/11/16 08:44 Miscellaneous Information (Consult Glycemic Management Pharmacy) 1 ea UD PRN N/A 07/12/16 09:29 08/11/16 09:28 Nystatin (Mycostatin Powder) 1 appln DAILY EXT 07/13/16 09:00 08/12/16 08:59 07/28/16 08:17 1 APPLN Enteral Nutritional Formula (Boost Glucose Control) 0.5 can TIDM PO 07/13/16 07:15 08/12/16 07:14 07/27/16 18:08 0.5 CAN Loratadine (Claritin Tab) 10 mg QAM PO 07/16/16 08:00 08/15/16 07:59 07/28/16 08:13 10 MG Heparin Sodium (Porcine) (Heparin Sq 5000 Unit/0.5ml) 5,000 unit Q8 SQ 07/16/16 14:00 08/15/16 13:59 07/27/16 20:49 5,000 UNIT Morphine Sulfate (MoRPHine SULFATE INJ) 3 mg Q3HWA PRN IV 07/21/16 13:15 08/04/16 13:14 07/26/16 18:41 3 MG Sertraline HCl (Zoloft Tab) 50 mg QAM PO 07/23/16 08:00 08/22/16 07:59 07/28/16 08:14 50 MG Metolazone (Zaroxolyn Tab) 5 mg DAILY@0530 PO 07/26/16 05:30 08/25/16 05:29 07/28/16 05:50 5 MG Polyethylene (Miralax Powder Packet) 17 gm BID PO 07/26/16 09:30 08/25/16 09:29 07/28/16 08:15 17 GM Albuterol/ Ipratropium (Duoneb) 3 ml Q4RWA INH 07/26/16 16:00 08/25/16 15:59 07/28/16 07:38 3 ML Guaifenesin (Mucinex Contr Rel Tab) 600 mg Q12 PO 07/26/16 21:00 08/25/16 20:59 07/28/16 08:14 600 MG Isosorbide Mononitrate 60 mg 60 mg QAM PO 07/27/16 08:00 08/26/16 07:59 07/28/16 08:13 60 MG Furosemide/ Albumin Human (Lasix Inj/ Albumin 25%) 58 ml @ 60 mls/hr DAILY@0600,1200,1800 IV 07/26/16 18:10 08/25/16 18:09 07/28/16 06:26 60 MLS/HR Carvedilol (Coreg Tab) 3.125 mg BID PO 07/27/16 20:00 08/26/16 19:59 07/28/16 08:14 3.125 MG Last 24 Hours Test 07/27/16 11:07 07/27/16 16:42 07/27/16 20:30 07/28/16 05:35 Bedside Glucose 104 mg/dl 162 mg/dl 176 mg/dl White Blood Count 7.45 K/uL Red Blood Count 3.56 M/uL Hemoglobin 10.9 g/dL Hematocrit 34.3 % Mean Corpuscular Volume 96.3 fL Mean Corpuscular Hemoglobin 30.6 pg Mean Corpuscular Hemoglobin Concent 31.8 g/dl RDW Standard Deviation 61.3 fL RDW Coefficient of Variation 17.3 % Platelet Count 244 K/uL Mean Platelet Volume 10.0 fL Sodium Level 133 mmol/L Potassium Level 3.5 mmol/L Chloride Level 88 mmol/L Carbon Dioxide Level 37 mmol/L Anion Gap 8.0 mmol/L Blood Urea Nitrogen 32 mg/dl Creatinine 1.60 mg/dl Est Creatinine Clear Calc Drug Dose 36.4 ml/min Estimated GFR () 44.2 Estimated GFR (Non- 38.2 BUN/Creatinine Ratio 20.2 Random Glucose 116 mg/dl Calcium Level 9.0 mg/dl Test 07/28/16 07:26 Bedside Glucose 121 mg/dl Date/Time Source Procedure Growth Status 07/27/16 17:12 Sputum Expectorated Sputum Gram Stain - Final Resulted 07/27/16 17:12 Sputum Expectorated Sputum Sputum Culture Pending Resulted Assessment & Plan 85 y/o M w/ CKD 4, copd, CAD, ischemic HF EF 40%, HTN, HL admitted with acute on chronic renal failure and volume overload. His prior baseline creatinine was in low 2's. CXR shows interstitial edema and pleural effusions CKD stage 4-creatinine improved from mid 2s to 1.6 in setting of iv diuretics. continue to push diuresis as tolerated -still marked dyspnea/plm edema though no peripheral edema. -there has been a lot of discussion of dialysis this admission but w/ his current creatinine this is not needed and should not really be discussed further at this time unless renal function changes significantly -ck PVR q 72 hrs (next would be 07/30) -appreciate nursing efforts to ensure daily standing weight and strict I/O >> vital to tracking his progress -daily bmp -started 2 gm daily sodium limit and 1.2 L fluid limit given XR findings > reinforced w/ nursing recently ordered measures to promote/document diuresis -cont metolazone w/ diuretics, and albumin to lasix HTN -acceptable > cont current meds Productive cough/ copd pulmonary taking steps to mobilize mucus -no thorcentesis indicated for now Appreciate consult; will follow with you.
[2016-07-28] MEDS ORDERED: SODIUM CHLORIDE 0.65% NA SOLN 45 ML (OCEAN) PRN (11:15)
--- NOTE | 2016-07-28 11:46 | PULMONARY PROGRESS NOTE ---
DATE: 07/28/2016 PROBLEM LIST: Includes bilateral pleural effusions, progressive dyspnea, chronic bronchitis, presumed possible COPD. SUBJECTIVE: The patient and his son report the patient has been breathing better. States that he can take a deeper breath in. However, the patient still feels like he has mucus in middle of his chest and upper airway that he cannot expectorate. He was very frustrated by this. He feels that this interferes with his breathing. He feels that when he does get the mucus moved he does have improvement in his breathing. He states that this has been going on for about 4 to 5 months now. The son was a little bit confused and concerned because the term COPD was mentioned in regards to his father. I did explain to him that with the patient's smoking history, as well as imaging changes, that we feel the patient may have a presumed COPD; however, we would need complete pulmonary function testing to verify this. Both patient and son voiced understanding. Otherwise the patient reports that he is doing well. He has no chest pain. No chest heaviness or tightness at this time. No abdominal pain, no nausea or vomiting, no indigestion or heartburn. Swelling is improved in his legs. His bowels are moving well. He is voiding well. No other complaints. The son did mention that he wondered if some of his father's breathing may be anxiety and if recommending slow breathing technique would be helpful. I did indicate to the son that this would be helpful, but I do not know that it would alleviate all the problems, as the patient does have what appears to be a legitimate lung disease and that it will probably take more than some relaxation technique and slow breathing to help his father. Seemed to understand and voiced understanding. Otherwise, no other concerns at this time. OBJECTIVE: GENERAL: The patient is an 85-year-old male sitting on bedside. He is alert and oriented. Actually looks more awake and alert, and more comfortable than when I saw him 2 days ago. He is interactive and cooperative. VITAL SIGNS: Temp 36.4, pulse 61, respirations 20, blood pressure is 113/63, pulse ox 97% on 2 liters. The patient has had a 4 kilogram weight drop in 2 days. Current weight is 103.9 kilograms. HEENT: Normocephalic, atraumatic. Pupils equal, round and reactive to light and accommodation. Extraocular movements are intact. [place] moist gingival and buccal mucosa. NECK: Short, thick. No mass, no adenopathy, no bruit. Fair to good range of motion, no tenderness to palpation. CHEST: The patient still has some mild wheezing in midline. Periphery seem to be relatively clear. No rale or rhonchi noted. CARDIOVASCULAR: Regular rate and rhythm. There are no murmurs, gallops or rubs appreciated today. ABDOMEN: Obese. Bowel sounds are present. Abdomen soft, nontender. No guarding, rigidity or organomegaly. EXTREMITIES: +1 edema bilaterally. No tenderness to palpation. No cyanosis or clubbing. NEUROLOGIC: Cranial nerves II-XII are intact. No focal deficit noted. LABORATORY DATA: Shows a white count of 7000, H\T\H 10.9 and 34.3, platelet count 244,000. BUN 32, creatinine stable at 1.6. The patient was able to provide a sputum. Preliminary is showing a few gram positive cocci and gram negative bacilli, final is pending. IMPRESSION: 1. This is an 85-year-old male with chronic kidney disease, stage 4, as well as ischemic cardiomyopathy and progressive dyspnea on exertion with pleural effusion at this time. The patient was evaluated by Dr. Harp for his pleural effusions and it was not felt to be enough on ultrasound today to do thoracentesis, which the patient is actually agreeable that this not be done at this point as he is feeling better with his breathing. 2. Persistent cough/chronic bronchitis. At this time, would recommend to be a little bit more aggressive and do vibration vest with the patient, in addition to the flutter and incentive spirometer. Also consider doing saline via the nebulizer with his pulmonary toilet. We will hold off today and see how he does just with the vest and other modalities. I think that the patient does need to have complete pulmonary function testing done as an outpatient. This was discussed with the patient and his son and they are agreeable to this. Would recommend to continue aggressive pulmonary toilet as well. Also recommend to continue Mucinex, which was started 2 days ago. Will continue to follow the patient through hospitalization. Patient reviewed as well as a plan discussed and agreed upon. CECILY
--- NOTE | 2016-07-28 12:28 | Pharmacy Progress Note ---
Glycemic Control: Progress Nt Date of Service Jul 28, 2016. Scope Glycemic Pharmacist consulted by Dr Velazquez on 07/12/16 for glycemic control and to write orders per [facility] inpatient glycemic control protocol. Objective Accuchecks BSG (last 24hrs): Test 07/27/16 16:42 07/27/16 20:30 07/28/16 05:35 07/28/16 07:26 Bedside Glucose 162 mg/dl (70-99) 176 mg/dl (70-99) 121 mg/dl (70-99) Random Glucose 116 mg/dl (70-99) Test 07/28/16 11:24 Bedside Glucose 176 mg/dl (70-99) Laboratory Data (last 24hrs) Test 07/28/16 05:35 Anion Gap 8.0 mmol/L BUN/Creatinine Ratio 20.2 Blood Urea Nitrogen 32 mg/dl Creatinine 1.60 mg/dl Potassium Level 3.5 mmol/L Sodium Level 133 mmol/L White Blood Count 7.45 K/uL HbA1c: Test 07/13/16 05:51 Hemoglobin A1c 7.6 % (4.5-5.6) H Recent Pertinent Medications Outpatient Anti-diabetic Regimen: * Glipizide 10mg BID * Januvia 50mg PO Daily * A1c = 7.6 % 07/13/16 The patient is currently receiving: * Basal insulin: Lantus held yesterday * Correctional Insulin: Novolog Correction per scale ACHS Goal Range: Low 100 mg/dL - High 140 mg/dL Correction Factor: 20 mg/dL/unit * Prandial insulin: Per carb ratio of 1 unit per 5 grams CHO consumed * Oral Agents: None Risk Factors for Insulin Resistance: * IVF: Albumin + Lasix * Diet: AHA/Type 2 DM/ Low Na+ Assessment & Plan ASSESSMENT: * Patient received 0 units of insulin yesterday, was lethargic and not eating. * Blood sugars have been good but are starting to rise again. I will restart patient's Lantus at a reduced daily dose. PLAN FOR INPATIENT GLYCEMIC CONTROL: * Basal insulin with LANTUS 10 units SQ daily * Hold for BSG < 100mg/dL * Correctional Insulin with NOVOLOG per scale ACHS or Q6hrs while NPO * Goal Range: Low 100 mg/dL - High 140 mg/dL * Correction Factor: 20 mg/dL/unit * Nutritional / Prandial insulin per carb ratio of 1 unit per 5 grams CHO consumed * Please note that the plan above was derived based on current level of insulin resistance and hospital stress. These recommendations are appropriate for inpatient admission only. Plan of care upon discharge will need to be reassessed to avoid potential outpatient hypo/hyperglycemia. Thank you.
--- NOTE | 2016-07-28 13:14 | Hospitalist Progress Note ---
Hospitalist Progress Note Date of Service Jul 28, 2016. Subjective Pt evaluation today including: conversation w/ patient, physical exam, chart review, lab review, review of studies, review of inpatient medication list Patient had no acute issues overnight SOB improved however continued dyspnea Patient also had bowel movement Constitutional: No fever Eyes: No worsening of vision ENT: No hearing loss, No sore throat Respiratory: No cough, No shortness of breath Cardiovascular: No chest pain, No edema Abdomen: No constipation, No pain, No vomiting Musculoskeletal: No joint pain, No muscle pain Male : No dysuria Neurologic: No memory loss Psychiatric: No depression symptoms Heme: No abnormal bleeding/bruising Endo: No fatigue Skin: No rash Medications Current Inpatient Medications Medications (Trade) Dose Ordered Sig/Vijay Route Start Time Stop Time Status Last Admin Dose Admin Acetaminophen (Tylenol Tab) 650 mg Q4H PRN PO 07/12/16 04:00 08/11/16 03:59 07/15/16 16:02 650 MG Al Hydrox/Mg Hydrox/Simethicone (Maalox Max Susp) 15 ml Q4H PRN PO 07/12/16 04:00 08/11/16 03:59 Magnesium Hydroxide (Milk Of Magnesia Susp) 30 ml Q12H PRN PO 07/12/16 04:00 08/11/16 03:59 07/25/16 09:22 30 ML Ondansetron HCl (Zofran Inj) 4 mg Q6H PRN IV 07/12/16 04:00 08/11/16 03:59 Nitroglycerin (Nitrostat Tab) 0.4 mg UD PRN SL 07/12/16 04:00 08/11/16 03:59 Aspirin (Ecotrin Tab) 81 mg DAILY PO 07/12/16 09:00 08/11/16 08:59 07/28/16 08:14 81 MG Clopidogrel Bisulfate (plAVix TAB) 75 mg DAILY PO 07/12/16 09:00 08/11/16 08:59 07/28/16 08:14 75 MG Docusate Sodium (coLACE CAP) 100 mg BID PO 07/12/16 09:00 08/11/16 08:59 07/28/16 08:15 100 MG Finasteride (Proscar Tab) 5 mg DAILY PO 07/12/16 09:00 08/11/16 08:59 07/28/16 08:15 5 MG Insulin Aspart (novoLOG ASPART) SLIDING SCALE If C... ACHS SC 07/12/16 11:00 08/11/16 10:59 07/28/16 13:06 6 UNITS Glucose (Glucose 40% Gel) 15-30 GRAMS 15 GRAMS... UD PRN PO 07/12/16 08:45 08/11/16 08:44 Glucose (Glucose Chew Tab) 4-8 Tablets 4 Tabl... UD PRN PO 07/12/16 08:45 08/11/16 08:44 Dextrose (Dextrose 50% 50ML Syringe) 25-50ML OF 50% DW IV FOR... UD PRN IV 07/12/16 08:45 08/11/16 08:44 Glucagon (Glucagon Inj) 1 mg UD PRN SQ 07/12/16 08:45 08/11/16 08:44 Miscellaneous Information (Consult Glycemic Management Pharmacy) 1 ea UD PRN N/A 07/12/16 09:29 08/11/16 09:28 Nystatin (Mycostatin Powder) 1 appln DAILY EXT 07/13/16 09:00 08/12/16 08:59 07/28/16 08:17 1 APPLN Enteral Nutritional Formula (Boost Glucose Control) 0.5 can TIDM PO 07/13/16 07:15 08/12/16 07:14 07/27/16 18:08 0.5 CAN Loratadine (Claritin Tab) 10 mg QAM PO 07/16/16 08:00 08/15/16 07:59 07/28/16 08:13 10 MG Heparin Sodium (Porcine) (Heparin Sq 5000 Unit/0.5ml) 5,000 unit Q8 SQ 07/16/16 14:00 08/15/16 13:59 07/27/16 20:49 5,000 UNIT Morphine Sulfate (MoRPHine SULFATE INJ) 3 mg Q3HWA PRN IV 07/21/16 13:15 08/04/16 13:14 07/26/16 18:41 3 MG Sertraline HCl (Zoloft Tab) 50 mg QAM PO 07/23/16 08:00 08/22/16 07:59 07/28/16 08:14 50 MG Metolazone (Zaroxolyn Tab) 5 mg DAILY@0530 PO 07/26/16 05:30 08/25/16 05:29 07/28/16 05:50 5 MG Polyethylene (Miralax Powder Packet) 17 gm BID PO 07/26/16 09:30 08/25/16 09:29 07/28/16 08:15 17 GM Albuterol/ Ipratropium (Duoneb) 3 ml Q4RWA INH 07/26/16 16:00 08/25/16 15:59 07/28/16 11:26 3 ML Guaifenesin (Mucinex Contr Rel Tab) 600 mg Q12 PO 07/26/16 21:00 08/25/16 20:59 07/28/16 08:14 600 MG Isosorbide Mononitrate 60 mg 60 mg QAM PO 07/27/16 08:00 08/26/16 07:59 07/28/16 08:13 60 MG Furosemide/ Albumin Human (Lasix Inj/ Albumin 25%) 58 ml @ 60 mls/hr DAILY@0600,1200,1800 IV 07/26/16 18:10 08/25/16 18:09 07/28/16 12:21 60 MLS/HR Carvedilol (Coreg Tab) 3.125 mg BID PO 07/27/16 20:00 08/26/16 19:59 07/28/16 08:14 3.125 MG Sodium Chloride ([place] Nasal [place]) 2 sprays Q1HWA PRN NA 07/28/16 11:15 08/27/16 11:14 07/28/16 12:19 2 SPRAYS Insulin Glargine (Lantus Solostar Pen) 10 unit DAILY SC 07/28/16 12:45 08/27/16 12:44 Objective Vital Signs Date Time Temp Pulse Resp B/P Pulse Ox O2 Delivery O2 Flow Rate FiO2 07/28/16 12:49 36.4 59 20 109/66 07/28/16 12:17 36.2 57 18 127/72 07/28/16 11:26 68 16 94 Nasal Cannula 4.0 07/28/16 11:06 36.6 55 12 130/85 98 Room Air 07/28/16 09:53 Nasal Cannula 07/28/16 08:57 36.4 61 20 113/63 97 Nasal Cannula 2.0 Humidified Oxygen 07/28/16 08:15 Nasal Cannula 2.0 07/28/16 07:49 Nasal Cannula 07/28/16 07:47 36.3 65 18 118/72 97 Nasal Cannula 07/28/16 07:38 64 16 98 BiPAP/CPAP 4.0 07/28/16 06:25 36.9 72 18 116/56 99 CPAP 4.0 07/28/16 01:09 Nasal Cannula 3.0 07/28/16 00:15 67 20 112/66 91 Room Air 07/27/16 21:45 52 18 122/65 95 BiPAP 07/27/16 21:05 50 110/60 07/27/16 16:20 93 Nasal Cannula 3.0 07/27/16 15:59 74 20 150/84 93 3.0 07/27/16 15:28 69 16 95 Nasal Cannula 4.0 07/27/16 13:50 36.1 55 20 110/68 96 2.0 Physical Exam General Appearance: WD/WN, no apparent distress Eyes: normal inspection ENT: normal ENT inspection Neck: supple Respiratory/Chest: chest non-tender, + crackles Cardiovascular: regular rate, rhythm, no edema Abdomen: normal bowel sounds, non tender Extremities: normal range of motion, non-tender Neurologic/Psychiatric: lead oxide mill tender II-XII nml as tested, no motor/sensory deficits, alert, oriented x 3 Skin: normal color, warm/dry, no rash Lymphatic: no adenopathy Laboratory Results Last 24 Hours Test 07/27/16 16:42 07/27/16 20:30 07/28/16 05:35 07/28/16 07:26 Bedside Glucose 162 mg/dl 176 mg/dl 121 mg/dl White Blood Count 7.45 K/uL Red Blood Count 3.56 M/uL Hemoglobin 10.9 g/dL Hematocrit 34.3 % Mean Corpuscular Volume 96.3 fL Mean Corpuscular Hemoglobin 30.6 pg Mean Corpuscular Hemoglobin Concent 31.8 g/dl RDW Standard Deviation 61.3 fL RDW Coefficient of Variation 17.3 % Platelet Count 244 K/uL Mean Platelet Volume 10.0 fL Sodium Level 133 mmol/L Potassium Level 3.5 mmol/L Chloride Level 88 mmol/L Carbon Dioxide Level 37 mmol/L Anion Gap 8.0 mmol/L Blood Urea Nitrogen 32 mg/dl Creatinine 1.60 mg/dl Est Creatinine Clear Calc Drug Dose 36.4 ml/min Estimated GFR () 44.2 Estimated GFR (Non- 38.2 BUN/Creatinine Ratio 20.2 Random Glucose 116 mg/dl Calcium Level 9.0 mg/dl Test 07/28/16 11:24 Bedside Glucose 176 mg/dl Assessment and Plan Acute on Chronic Kidney Disease - hypervolemic - Cr trending up today/1.7 - per nephrology no dialysis indications at this time - patient had u/o of 1200 cc yesterday I/<O -360 cc - currently on Lasix 80 mg tid with cont metolazone - continue albumin per nephrology recs Bradycardia - decreased coreg to 3.125 mg bid Hypoxic Respiratory Failure - suspect 2/2 to volume - appreciate pulmonary input - cont mucinex - duonebs q6 hours - appreciate palliative care input 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
[2016-07-28] MEDS: INSULIN GLARGINE SOLOSTAR 100 UNITS/ML 3 ML PEN SC SCH (13:15)
[2016-07-29] VITALS (12 sets, daily range): BP systolic 100–140; BP diastolic 51–79; PULSE 50–76; TEMP 36.1–36.5; O2SAT 94–99
[2016-07-29] MEDS: METOLAZONE 5 MG TAB PO SCH (05:07)
[2016-07-29] MEDS: HEPARIN SOD 5000 UNIT/0.5 ML CARP SQ SCH ×3 (06:00→20:53)
[2016-07-29] MEDS: ALBUMIN 25% 50 ML with FUROSEMIDE INJ 80 MG IV SCH ×8 (06:23→19:01)
[2016-07-29 06:34] LABS: BUN/CREATININE RATIO 21.9 (10-20); CALCIUM 9.4 mg/dl (8.5-10.1); CREATININE 1.7 mg/dl (0.60-1.40); POTASSIUM 3.1 mmol/L (3.5-5.1)
[2016-07-29] MEDS: ALBUT/IPRATROP 3MG/0.5MG NEB 3 ML VIAL INH SCH ×4 (07:23→20:03)
[2016-07-29] MEDS: BOOST GLUCOSE CONTROL PO SCH ×3 (08:00→17:54)
[2016-07-29] MEDS: DOCUSATE SODIUM 100 MG CAP PO SCH ×2 (08:09→20:42)
[2016-07-29] MEDS: GUAIFENESIN 600 MG TABCR PO SCH ×2 (08:10→20:42)
[2016-07-29] MEDS: ISOSORBIDE MONONITRATE 60 MG TABCR PO SCH (08:10)
[2016-07-29] MEDS: SERTRALINE HCL 50 MG TAB PO SCH (08:10)
[2016-07-29] MEDS: FINASTERIDE 5 MG TAB PO SCH (08:10)
[2016-07-29] MEDS: POLYETHYLENE (MIRALAX) 17 GM PACK PO SCH ×2 (08:11→20:42)
[2016-07-29] MEDS: CLOPIDOGREL BISULFATE 75 MG TAB PO SCH (08:11)
[2016-07-29] MEDS: CARVEDILOL 6.25 MG TAB PO SCH ×2 (08:11→20:43)
[2016-07-29] MEDS: ASPIRIN 81 MG ECTAB PO SCH (08:11)
[2016-07-29] MEDS: LORATADINE 10 MG TAB PO SCH (08:11)
[2016-07-29] MEDS: NYSTATIN POWDER 15GM BTL EXT SCH (08:12)
[2016-07-29] MEDS: INSULIN GLARGINE SOLOSTAR 100 UNITS/ML 3 ML PEN SC SCH (08:17)
[2016-07-29] MEDS ORDERED: POTASSIUM CHLORIDE 20 MEQ TABCR PO ONE (08:45)
[2016-07-29] MEDS: INSULIN ASPART 100 UNITS/ML 3 ML PEN SC SCH ×4 (09:03→20:52)
--- NOTE | 2016-07-29 09:39 | Nephrology Progress Note ---
Nephrology Progress Note Date of Service: Jul 29, 2016. Subjective breathing better still. 11 lb off this week and 4 lb off past 24 hrs. he is feeling better. eating, drinking. d/c had been contemplated but is deferred for now. denies voiding sx Objective Date Time Temp Pulse Resp B/P Pulse Ox O2 Delivery O2 Flow Rate FiO2 07/29/16 09:10 36.2 58 20 111/68 07/29/16 08:25 36.3 76 20 131/79 07/29/16 08:08 36.4 65 20 100/53 96 3.0 07/29/16 00:52 36.2 64 20 105/67 97 Nasal Cannula 2.0 07/29/16 00:00 Nasal Cannula 2.0 07/28/16 19:35 74 18 94 Nasal Cannula 4.0 07/28/16 16:20 93 Nasal Cannula 2.0 07/28/16 16:05 36.2 61 20 122/63 93 Humidified Air 2.0 07/28/16 16:00 74 18 96 Nasal Cannula 4.0 07/28/16 13:12 36.4 83 20 104/65 07/28/16 12:49 36.4 59 20 109/66 07/28/16 12:17 36.2 57 18 127/72 07/28/16 11:26 68 16 94 Nasal Cannula 4.0 07/28/16 11:06 36.6 55 12 130/85 98 Room Air 07/28/16 09:53 Nasal Cannula Physical Exam: General-obese, on 3L02 NC this am, up in chair, moves readily for exam Eyes-no scleral icterus ENT-mmm Neck-supple Lungs-again better but still limited air mvt, diminished BL bases, diffuse fine crackles Heart-RRR; II/ SM Abdomen-bs+ s/nt/nd, no lujan Extremities-2+ pedal edema L foot, less on R Neuro-nonfocal Derm-pale, no rash noted Current Inpatient Medications Medications (Trade) Dose Ordered Sig/Vijay Route Start Time Stop Time Status Last Admin Dose Admin Acetaminophen (Tylenol Tab) 650 mg Q4H PRN PO 07/12/16 04:00 08/11/16 03:59 07/15/16 16:02 650 MG Al Hydrox/Mg Hydrox/Simethicone (Maalox Max Susp) 15 ml Q4H PRN PO 07/12/16 04:00 08/11/16 03:59 Magnesium Hydroxide (Milk Of Magnesia Susp) 30 ml Q12H PRN PO 07/12/16 04:00 08/11/16 03:59 07/25/16 09:22 30 ML Ondansetron HCl (Zofran Inj) 4 mg Q6H PRN IV 07/12/16 04:00 08/11/16 03:59 Nitroglycerin (Nitrostat Tab) 0.4 mg UD PRN SL 07/12/16 04:00 08/11/16 03:59 Aspirin (Ecotrin Tab) 81 mg DAILY PO 07/12/16 09:00 08/11/16 08:59 07/29/16 08:11 81 MG Clopidogrel Bisulfate (plAVix TAB) 75 mg DAILY PO 07/12/16 09:00 08/11/16 08:59 07/29/16 08:11 75 MG Docusate Sodium (coLACE CAP) 100 mg BID PO 07/12/16 09:00 08/11/16 08:59 07/29/16 08:09 100 MG Finasteride (Proscar Tab) 5 mg DAILY PO 07/12/16 09:00 08/11/16 08:59 07/29/16 08:10 5 MG Insulin Aspart (novoLOG ASPART) SLIDING SCALE If C... ACHS SC 07/12/16 11:00 08/11/16 10:59 07/29/16 09:03 12 UNITS Glucose (Glucose 40% Gel) 15-30 GRAMS 15 GRAMS... UD PRN PO 07/12/16 08:45 08/11/16 08:44 Glucose (Glucose Chew Tab) 4-8 Tablets 4 Tabl... UD PRN PO 07/12/16 08:45 08/11/16 08:44 Dextrose (Dextrose 50% 50ML Syringe) 25-50ML OF 50% DW IV FOR... UD PRN IV 07/12/16 08:45 08/11/16 08:44 Glucagon (Glucagon Inj) 1 mg UD PRN SQ 07/12/16 08:45 08/11/16 08:44 Miscellaneous Information (Consult Glycemic Management Pharmacy) 1 ea UD PRN N/A 07/12/16 09:29 2/16/17 09:28 Nystatin (Mycostatin Powder) 1 appln DAILY EXT 07/13/16 09:00 08/12/16 08:59 07/29/16 08:12 1 APPLN Enteral Nutritional Formula (Boost Glucose Control) 0.5 can TIDM PO 07/13/16 07:15 08/12/16 07:14 07/27/16 18:08 0.5 CAN Loratadine (Claritin Tab) 10 mg QAM PO 07/16/16 08:00 08/15/16 07:59 07/29/16 08:11 10 MG Heparin Sodium (Porcine) (Heparin Sq 5000 Unit/0.5ml) 5,000 unit Q8 SQ 07/16/16 14:00 08/15/16 13:59 07/28/16 20:46 5,000 UNIT Morphine Sulfate (MoRPHine SULFATE INJ) 3 mg Q3HWA PRN IV 07/21/16 13:15 08/04/16 13:14 07/26/16 18:41 3 MG Sertraline HCl (Zoloft Tab) 50 mg QAM PO 07/23/16 08:00 08/22/16 07:59 07/29/16 08:10 50 MG Metolazone (Zaroxolyn Tab) 5 mg DAILY@0530 PO 07/26/16 05:30 08/25/16 05:29 07/29/16 05:07 5 MG Polyethylene (Miralax Powder Packet) 17 gm BID PO 07/26/16 09:30 08/25/16 09:29 07/29/16 08:11 17 GM Albuterol/ Ipratropium (Duoneb) 3 ml Q4RWA INH 07/26/16 16:00 08/25/16 15:59 07/29/16 07:23 3 ML Guaifenesin (Mucinex Contr Rel Tab) 600 mg Q12 PO 07/26/16 21:00 08/25/16 20:59 07/29/16 08:10 600 MG Isosorbide Mononitrate 60 mg 60 mg QAM PO 07/27/16 08:00 08/26/16 07:59 07/29/16 08:10 60 MG Furosemide/ Albumin Human (Lasix Inj/ Albumin 25%) 58 ml @ 60 mls/hr DAILY@0600,1200,1800 IV 07/26/16 18:10 08/25/16 18:09 07/29/16 08:06 60 MLS/HR Carvedilol (Coreg Tab) 3.125 mg BID PO 07/27/16 20:00 08/26/16 19:59 07/29/16 08:11 3.125 MG Sodium Chloride ([place] Nasal [place]) 2 sprays Q1HWA PRN NA 07/28/16 11:15 08/27/16 11:14 07/28/16 12:19 2 SPRAYS Insulin Glargine (Lantus Solostar Pen) 10 unit DAILY SC 07/28/16 12:45 08/27/16 12:44 07/29/16 08:17 10 UNIT Potassium Chloride (Klor-Con Tab) 20 meq QAM PO 07/30/16 08:00 08/29/16 07:59 Last 24 Hours Test 07/28/16 11:24 07/28/16 19:38 07/29/16 05:29 07/29/16 08:04 Bedside Glucose 176 mg/dl 221 mg/dl 109 mg/dl Sodium Level 135 mmol/L Potassium Level 3.1 mmol/L Chloride Level 87 mmol/L Carbon Dioxide Level 38 mmol/L Anion Gap 10.0 mmol/L Blood Urea Nitrogen 37 mg/dl Creatinine 1.70 mg/dl Est Creatinine Clear Calc Drug Dose 33.4 ml/min Estimated GFR () 41.1 Estimated GFR (Non- 35.5 BUN/Creatinine Ratio 21.9 Random Glucose 88 mg/dl Calcium Level 9.4 mg/dl Assessment & Plan 85 y/o M w/ CKD 4, copd, CAD, ischemic HF EF 40%, HTN, HL admitted with acute on chronic renal failure and volume overload. His prior baseline creatinine was in low 2's. CXR shows interstitial edema and pleural effusions CKD stage 4-creatinine improved from mid 2s to 1.7 in setting of iv diuretics. continue to push diuresis as tolerated -still marked hypoxia/dyspnea/plm edema though no peripheral edema. -there has been a lot of discussion of dialysis this admission but w/ his current creatinine this is not needed and should not really be discussed further at this time unless renal function changes significantly -ck PVR q 72 hrs (next would be 07/30) -appreciate nursing efforts to ensure daily standing weight and strict I/O >> vital to tracking his progress which has been steady -daily bmp -started 2 gm daily sodium limit and 1.2 L fluid limit given XR findings > reinforced w/ nursing recently ordered measures to promote/document diuresis -cont metolazone w/ diuretics, and albumin to lasix >>>he and his family will need heart failure teaching prior to d/c >> low Na diet, daily weights, 1.2 L fluid limit hypokalemia -gave 40 MEq po this am and ordered standing 20 mEq daily HTN -acceptable > cont current meds Productive cough/ copd pulmonary taking steps to mobilize mucus -no thoracentesis indicated for now >>>>?if he will leave hospital with 02 Appreciate consult; will follow with you.
--- NOTE | 2016-07-29 12:42 | Pharmacy Progress Note ---
Glycemic Control: Progress Nt Date of Service Jul 29, 2016. Scope Glycemic Pharmacist consulted by Dr Velazquez on 07/12/16 for glycemic control and to write orders per [facility] inpatient glycemic control protocol. Objective Accuchecks BSG (last 24hrs): Test 07/28/16 19:38 07/29/16 05:29 07/29/16 08:04 Bedside Glucose 221 mg/dl (70-99) 109 mg/dl (70-99) Random Glucose 88 mg/dl (70-99) Laboratory Data (last 24hrs) Test 07/29/16 05:29 Anion Gap 10.0 mmol/L BUN/Creatinine Ratio 21.9 Blood Urea Nitrogen 37 mg/dl Creatinine 1.70 mg/dl Potassium Level 3.1 mmol/L Sodium Level 135 mmol/L HbA1c: Test 07/13/16 05:51 Hemoglobin A1c 7.6 % (4.5-5.6) H Recent Pertinent Medications Outpatient Anti-diabetic Regimen: * Glipizide 10mg PO BID * Januvia 50mg PO daily The patient is currently receiving: * Basal insulin: Lantus 10 units every 24 hours given in the morning * Correctional Insulin: Novolog Correction per scale ACHS Goal Range: Low 100 mg/dL - High 140 mg/dL Correction Factor: 20 mg/dL/unit * Prandial insulin: Per carb ratio of 1 unit per 5 grams CHO consumed * Oral Agents: On hold for admission Risk Factors for Insulin Resistance: * Fluid overload * Diet Risk Factors for Insulin Sensitivity: * Impaired renal function Assessment & Plan ASSESSMENT: * 85yo T2DM male with adequately controlled diabetes as an outpatient per recent A1c * A1c may be slightly unreliable d/t CKD and alterations in RBC turnover rate. Best to assess degree of control based on POC BSGs. * Pt is maintained on oral agents as an outpatient. Oral agents on hold for admission and patient was initiated on SQ basal bolus insulin regimen for inpatient use. Doses have been titrated daily based on BSG trends. * Patient with fluctuating insulin needs daily based on PO intake and previous day basal insulin dosing. Pt has increased insulin sensitivity d/t ALIDA. * Pt has received 48units of insulin over the past 24hrs * AM fasting BSG is slightly below goal range this morning --> this may be d/t large dose of NovoLog given at bedtime last evening. * Currently, pt is receiving much more prandial/correctional insulin than basal insulin. Will adjust bolus insulin parameters accordingly. * Low end of the goal range for bolus insulin is currently 100mg/dl --> will increase this to help prevent hypoglycemia (will subtract off CHO coverage if BSG below goal range) * ADA & AACE recommend a goal blood sugar range 140-180 mg/dl for the majority of critically ill & non-critically ill patients. However, more stringent targets may be selected in individual cases. Will utilize more stringent goal range of 120-140mg/dl for a presumed well controlled diabetic at baseline. PLAN FOR INPATIENT GLYCEMIC CONTROL: * Hold outpatient oral diabetes medications * Basal insulin with LANTUS 10 units SQ daily in the morning * Correctional Insulin with NOVOLOG per scale ACHS or Q6hrs while NPO * Goal Range: Low 120 mg/dL - High 140 mg/dL * Correction Factor: 25 mg/dL/unit * Nutritional / Prandial insulin per carb ratio of 1 unit per 8 grams CHO consumed * Please note that the plan above was derived based on current level of insulin resistance and hospital stress. These recommendations are appropriate for inpatient admission only. Plan of care upon discharge will need to be reassessed to avoid potential outpatient hypo/hyperglycemia. Thank you.
--- NOTE | 2016-07-29 15:12 | Hospitalist Progress Note ---
Hospitalist Progress Note Date of Service Jul 29, 2016. Subjective Pt evaluation today including: conversation w/ patient, physical exam, chart review, lab review, review of studies, review of inpatient medication list Patient had no acute issues overnight Antoine any chest pain, SOB, nausea or vomiting Constitutional: No fever Eyes: No worsening of vision ENT: No hearing loss Respiratory: + shortness of breath, No cough Cardiovascular: No chest pain Abdomen: No constipation, No pain, No vomiting Musculoskeletal: No joint pain Male : No dysuria Neurologic: No memory loss Psychiatric: No depression symptoms Medications Current Inpatient Medications Medications (Trade) Dose Ordered Sig/Vijay Route Start Time Stop Time Status Last Admin Dose Admin Acetaminophen (Tylenol Tab) 650 mg Q4H PRN PO 07/12/16 04:00 08/11/16 03:59 07/15/16 16:02 650 MG Al Hydrox/Mg Hydrox/Simethicone (Maalox Max Susp) 15 ml Q4H PRN PO 07/12/16 04:00 08/11/16 03:59 Magnesium Hydroxide (Milk Of Magnesia Susp) 30 ml Q12H PRN PO 07/12/16 04:00 08/11/16 03:59 07/25/16 09:22 30 ML Ondansetron HCl (Zofran Inj) 4 mg Q6H PRN IV 07/12/16 04:00 08/11/16 03:59 Nitroglycerin (Nitrostat Tab) 0.4 mg UD PRN SL 07/12/16 04:00 08/11/16 03:59 Aspirin (Ecotrin Tab) 81 mg DAILY PO 07/12/16 09:00 08/11/16 08:59 07/29/16 08:11 81 MG Clopidogrel Bisulfate (plAVix TAB) 75 mg DAILY PO 07/12/16 09:00 08/11/16 08:59 07/29/16 08:11 75 MG Docusate Sodium (coLACE CAP) 100 mg BID PO 07/12/16 09:00 08/11/16 08:59 07/29/16 08:09 100 MG Finasteride (Proscar Tab) 5 mg DAILY PO 07/12/16 09:00 08/11/16 08:59 07/29/16 08:10 5 MG Insulin Aspart (novoLOG ASPART) SLIDING SCALE If C... ACHS SC 07/12/16 11:00 08/11/16 10:59 07/29/16 12:44 6 UNITS Glucose (Glucose 40% Gel) 15-30 GRAMS 15 GRAMS... UD PRN PO 07/12/16 08:45 08/11/16 08:44 Glucose (Glucose Chew Tab) 4-8 Tablets 4 Tabl... UD PRN PO 07/12/16 08:45 08/11/16 08:44 Dextrose (Dextrose 50% 50ML Syringe) 25-50ML OF 50% DW IV FOR... UD PRN IV 07/12/16 08:45 08/11/16 08:44 Glucagon (Glucagon Inj) 1 mg UD PRN SQ 07/12/16 08:45 08/11/16 08:44 Miscellaneous Information (Consult Glycemic Management Pharmacy) 1 ea UD PRN N/A 07/12/16 09:29 08/11/16 09:28 Nystatin (Mycostatin Powder) 1 appln DAILY EXT 07/13/16 09:00 08/12/16 08:59 07/29/16 08:12 1 APPLN Enteral Nutritional Formula (Boost Glucose Control) 0.5 can TIDM PO 07/13/16 07:15 08/12/16 07:14 07/27/16 18:08 0.5 CAN Loratadine (Claritin Tab) 10 mg QAM PO 07/16/16 08:00 08/15/16 07:59 07/29/16 08:11 10 MG Heparin Sodium (Porcine) (Heparin Sq 5000 Unit/0.5ml) 5,000 unit Q8 SQ 07/16/16 14:00 08/15/16 13:59 07/29/16 13:46 5,000 UNIT Morphine Sulfate (MoRPHine SULFATE INJ) 3 mg Q3HWA PRN IV 07/21/16 13:15 08/04/16 13:14 07/26/16 18:41 3 MG Sertraline HCl (Zoloft Tab) 50 mg QAM PO 07/23/16 08:00 08/22/16 07:59 07/29/16 08:10 50 MG Metolazone (Zaroxolyn Tab) 5 mg DAILY@0530 PO 07/26/16 05:30 08/25/16 05:29 07/29/16 05:07 5 MG Polyethylene (Miralax Powder Packet) 17 gm BID PO 07/26/16 09:30 08/25/16 09:29 07/29/16 08:11 17 GM Albuterol/ Ipratropium (Duoneb) 3 ml Q4RWA INH 07/26/16 16:00 08/25/16 15:59 07/29/16 11:32 3 ML Guaifenesin (Mucinex Contr Rel Tab) 600 mg Q12 PO 07/26/16 21:00 08/25/16 20:59 07/29/16 08:10 600 MG Isosorbide Mononitrate 60 mg 60 mg QAM PO 07/27/16 08:00 08/26/16 07:59 07/29/16 08:10 60 MG Furosemide/ Albumin Human (Lasix Inj/ Albumin 25%) 58 ml @ 60 mls/hr DAILY@0600,1200,1800 IV 07/26/16 18:10 08/25/16 18:09 07/29/16 12:12 60 MLS/HR Carvedilol (Coreg Tab) 3.125 mg BID PO 07/27/16 20:00 08/26/16 19:59 07/29/16 08:11 3.125 MG Sodium Chloride ([place] Nasal [place]) 2 sprays Q1HWA PRN NA 07/28/16 11:15 08/27/16 11:14 07/28/16 12:19 2 SPRAYS Insulin Glargine (Lantus Solostar Pen) 10 unit DAILY SC 07/28/16 12:45 08/27/16 12:44 07/29/16 08:17 10 UNIT Potassium Chloride (Klor-Con Tab) 20 meq QAM PO 07/30/16 08:00 08/29/16 07:59 Objective Vital Signs Date Time Temp Pulse Resp B/P Pulse Ox O2 Delivery O2 Flow Rate FiO2 07/29/16 14:52 36.5 62 20 120/62 98 Nasal Cannula 4.0 07/29/16 13:42 36.1 50 20 108/62 07/29/16 12:39 36.2 60 20 108/70 07/29/16 12:03 36.2 60 20 112/70 99 Nasal Cannula 2.0 07/29/16 11:33 72 18 94 Nasal Cannula 4.0 07/29/16 09:10 36.2 58 20 111/68 07/29/16 08:25 36.3 76 20 131/79 07/29/16 08:08 36.4 65 20 100/53 96 3.0 07/29/16 08:00 Nasal Cannula 2.0 07/29/16 00:52 36.2 64 20 105/67 97 Nasal Cannula 2.0 07/29/16 00:00 Nasal Cannula 2.0 07/28/16 19:35 74 18 94 Nasal Cannula 4.0 07/28/16 16:20 93 Nasal Cannula 2.0 07/28/16 16:05 36.2 61 20 122/63 93 Humidified Air 2.0 07/28/16 16:00 74 18 96 Nasal Cannula 4.0 Physical Exam General Appearance: WD/WN, no apparent distress Eyes: normal inspection ENT: normal ENT inspection Neck: supple Respiratory/Chest: chest non-tender, lungs clear Cardiovascular: regular rate, rhythm, no edema Abdomen: normal bowel sounds, non tender, soft Extremities: normal range of motion, non-tender Neurologic/Psychiatric: 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 nml as tested, no motor/sensory deficits, alert, oriented x 3 Skin: normal color, warm/dry, no rash Lymphatic: no adenopathy Laboratory Results Last 24 Hours Test 07/28/16 19:38 07/29/16 05:29 07/29/16 08:04 Bedside Glucose 221 mg/dl 109 mg/dl Sodium Level 135 mmol/L Potassium Level 3.1 mmol/L Chloride Level 87 mmol/L Carbon Dioxide Level 38 mmol/L Anion Gap 10.0 mmol/L Blood Urea Nitrogen 37 mg/dl Creatinine 1.70 mg/dl Est Creatinine Clear Calc Drug Dose 33.4 ml/min Estimated GFR () 41.1 Estimated GFR (Non- 35.5 BUN/Creatinine Ratio 21.9 Random Glucose 88 mg/dl Calcium Level 9.4 mg/dl Assessment and Plan Acute on Chronic Kidney Disease - hypervolemic however seems to be improving daily - Cr /1.7 - per nephrology no dialysis indications at this time - patient had u/o of 2L yesterday I/<O -1.2 L - currently on Lasix 80 mg tid with cont metolazone Bradycardia - decreased coreg to 3.125 mg bid Hypoxic Respiratory Failure - suspect 2/ to volume - appreciate pulmonary input - cont mucinex - duonebs q6 hours - appreciate palliative care input - check BMP in am 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
[2016-07-30] VITALS (12 sets, daily range): BP systolic 113–138; BP diastolic 52–82; PULSE 57–78; TEMP 36.3–36.5; O2SAT 92–98
[2016-07-30] MEDS: METOLAZONE 5 MG TAB PO SCH (05:16)
[2016-07-30] MEDS: ALBUMIN 25% 50 ML with FUROSEMIDE INJ 80 MG IV SCH ×6 (06:05→18:42)
[2016-07-30] MEDS: HEPARIN SOD 5000 UNIT/0.5 ML CARP SQ SCH ×3 (06:09→21:21)
[2016-07-30 06:30] LABS: BUN/CREATININE RATIO 23.5 (10-20); CALCIUM 9.7 mg/dl (8.5-10.1); CREATININE 1.6 mg/dl (0.60-1.40); POTASSIUM 3.1 mmol/L (3.5-5.1)
[2016-07-30] MEDS: ALBUT/IPRATROP 3MG/0.5MG NEB 3 ML VIAL INH SCH ×3 (07:14→15:11)
[2016-07-30] MEDS ORDERED: POTASSIUM CHLORIDE 20 MEQ TABCR PO SCH (08:00)
[2016-07-30] MEDS: POLYETHYLENE (MIRALAX) 17 GM PACK PO SCH ×2 (08:26→19:26)
[2016-07-30] MEDS: BOOST GLUCOSE CONTROL PO SCH ×3 (08:27→17:00)
[2016-07-30] MEDS: DOCUSATE SODIUM 100 MG CAP PO SCH ×2 (08:29→19:26)
[2016-07-30] MEDS: LORATADINE 10 MG TAB PO SCH (08:29)
[2016-07-30] MEDS: CARVEDILOL 6.25 MG TAB PO SCH ×2 (08:30→19:29)
[2016-07-30] MEDS: ASPIRIN 81 MG ECTAB PO SCH (08:30)
[2016-07-30] MEDS: FINASTERIDE 5 MG TAB PO SCH (08:31)
[2016-07-30] MEDS: CLOPIDOGREL BISULFATE 75 MG TAB PO SCH (08:31)
[2016-07-30] MEDS: ISOSORBIDE MONONITRATE 60 MG TABCR PO SCH (08:31)
[2016-07-30] MEDS: GUAIFENESIN 600 MG TABCR PO SCH ×2 (08:32→19:31)
[2016-07-30] MEDS: SERTRALINE HCL 50 MG TAB PO SCH (08:32)
[2016-07-30] MEDS: POTASSIUM CHLORIDE 20 MEQ TABCR PO SCH ×2 (08:34→19:25)
[2016-07-30] MEDS: INSULIN ASPART 100 UNITS/ML 3 ML PEN SC SCH ×4 (08:55→21:19)
[2016-07-30] MEDS: INSULIN GLARGINE SOLOSTAR 100 UNITS/ML 3 ML PEN SC SCH (08:56)
[2016-07-30] MEDS: NYSTATIN POWDER 15GM BTL EXT SCH (08:56)
--- NOTE | 2016-07-30 11:33 | Pharmacy Progress Note ---
Glycemic Control: Progress Nt Date of Service Jul 30, 2016. Scope Glycemic Pharmacist consulted by Dr Velazquez on 07/12/16 for glycemic control and to write orders per [facility] inpatient glycemic control protocol. Objective Accuchecks BSG (last 24hrs): Test 07/29/16 20:11 07/30/16 05:29 07/30/16 07:43 Bedside Glucose 231 mg/dl (70-99) 148 mg/dl (70-99) Random Glucose 155 mg/dl (70-99) Laboratory Data (last 24hrs) Test 07/30/16 05:29 Anion Gap 12.0 mmol/L BUN/Creatinine Ratio 23.5 Blood Urea Nitrogen 38 mg/dl Creatinine 1.60 mg/dl Potassium Level 3.1 mmol/L Sodium Level 135 mmol/L HbA1c: Test 07/13/16 05:51 Hemoglobin A1c 7.6 % (4.5-5.6) H Recent Pertinent Medications Outpatient Anti-diabetic Regimen: * Glipizide 10mg PO BID * Januvia 50mg PO daily The patient is currently receiving: * Basal insulin: Lantus 10 units every 24 hours given in the morning * Correctional Insulin: Novolog Correction per scale ACHS Goal Range: Low 120 mg/dL - High 140 mg/dL Correction Factor: 25 mg/dL/unit * Prandial insulin: Per carb ratio of 1 unit per 8 grams CHO consumed * Oral Agents: On hold for admission Risk Factors for Insulin Resistance: * Fluid overload * Diet Risk Factors for Insulin Sensitivity: * Impaired renal function Assessment & Plan ASSESSMENT: * 85yo T2DM male with adequately controlled diabetes as an outpatient per recent A1c * A1c may be slightly unreliable d/t CKD and alterations in RBC turnover rate. Best to assess degree of control based on POC BSGs. * Pt is maintained on oral agents as an outpatient. Oral agents on hold for admission and patient was initiated on SQ basal bolus insulin regimen for inpatient use. Doses have been titrated daily based on BSG trends. * Patient with fluctuating insulin needs daily based on PO intake and previous day basal insulin dosing. Pt has increased insulin sensitivity d/t ALIDA. * Pt has received 43units of insulin over the past 24hrs * AM fasting BSG is slightly above goal range this morning @ 155mg/dl --> Pt did not require large NovoLog bolus the night prior (did on 07/28 while resuled to "lower" AM BSG 2/3) --> will increase Lantus slightly * Post-prandial BSGs slightly elevated. Reduced bolus insulin parameters slightly yesterday - will tighten today in between previous values. * ADA & AACE recommend a goal blood sugar range 140-180 mg/dl for the majority of critically ill & non-critically ill patients. However, more stringent targets may be selected in individual cases. Will utilize more stringent goal range of 120-140mg/dl for a presumed well controlled diabetic at baseline. PLAN FOR INPATIENT GLYCEMIC CONTROL: * Hold outpatient oral diabetes medications * Basal insulin with LANTUS SQ daily in the morning based on AM fasting BSG * If BSG 110mg/dl or below --> Hold Lantus * If BSG 111 - 140mg/dl --> Administer Lantus 10 units * If BSG 141mg/dl or above --> Administer Lantus 13 units * Correctional Insulin with NOVOLOG per scale ACHS or Q6hrs while NPO * Goal Range: Low 120 mg/dL - High 140 mg/dL * Correction Factor: 20 mg/dL/unit * Nutritional / Prandial insulin per carb ratio of 1 unit per 7 grams CHO consumed * Please note that the plan above was derived based on current level of insulin resistance and hospital stress. These recommendations are appropriate for inpatient admission only. Plan of care upon discharge will need to be reassessed to avoid potential outpatient hypo/hyperglycemia. Thank you.
--- NOTE | 2016-07-30 12:08 | Hospitalist Progress Note ---
Hospitalist Progress Note Date of Service Jul 30, 2016. Subjective Pt evaluation today including: conversation w/ patient, physical exam, chart review, lab review, review of studies, review of inpatient medication list Patient had no acute issue overnight Denies any chest pain, fevers, cough States SOB is greatly improved Constitutional: No fever, No weight loss Eyes: No worsening of vision ENT: No hearing loss, No sore throat Respiratory: + cough, + shortness of breath Cardiovascular: No chest pain, No edema Abdomen: No constipation, No pain, No vomiting Musculoskeletal: No joint pain Male : No urinary frequency Neurologic: No memory loss, No weakness Psychiatric: No depression symptoms Heme: No abnormal bleeding/bruising Skin: No itch Medications Current Inpatient Medications Medications (Trade) Dose Ordered Sig/Vijay Route Start Time Stop Time Status Last Admin Dose Admin Acetaminophen (Tylenol Tab) 650 mg Q4H PRN PO 07/12/16 04:00 08/11/16 03:59 07/15/16 16:02 650 MG Al Hydrox/Mg Hydrox/Simethicone (Maalox Max Susp) 15 ml Q4H PRN PO 07/12/16 04:00 08/11/16 03:59 Magnesium Hydroxide (Milk Of Magnesia Susp) 30 ml Q12H PRN PO 07/12/16 04:00 08/11/16 03:59 07/25/16 09:22 30 ML Ondansetron HCl (Zofran Inj) 4 mg Q6H PRN IV 07/12/16 04:00 08/11/16 03:59 Nitroglycerin (Nitrostat Tab) 0.4 mg UD PRN SL 07/12/16 04:00 08/11/16 03:59 Aspirin (Ecotrin Tab) 81 mg DAILY PO 07/12/16 09:00 08/11/16 08:59 07/30/16 08:30 81 MG Clopidogrel Bisulfate (plAVix TAB) 75 mg DAILY PO 07/12/16 09:00 08/11/16 08:59 07/30/16 08:31 75 MG Docusate Sodium (coLACE CAP) 100 mg BID PO 07/12/16 09:00 08/11/16 08:59 07/30/16 08:29 100 MG Finasteride (Proscar Tab) 5 mg DAILY PO 07/12/16 09:00 08/11/16 08:59 07/30/16 08:31 5 MG Insulin Aspart (novoLOG ASPART) SLIDING SCALE If C... ACHS SC 07/12/16 11:00 08/11/16 10:59 07/30/16 08:55 8 UNITS Glucose (Glucose 40% Gel) 15-30 GRAMS 15 GRAMS... UD PRN PO 07/12/16 08:45 08/11/16 08:44 Glucose (Glucose Chew Tab) 4-8 Tablets 4 Tabl... UD PRN PO 07/12/16 08:45 08/11/16 08:44 Dextrose (Dextrose 50% 50ML Syringe) 25-50ML OF 50% DW IV FOR... UD PRN IV 07/12/16 08:45 08/11/16 08:44 Glucagon (Glucagon Inj) 1 mg UD PRN SQ 07/12/16 08:45 08/11/16 08:44 Miscellaneous Information (Consult Glycemic Management Pharmacy) 1 ea UD PRN N/A 07/12/16 09:29 08/11/16 09:28 Nystatin (Mycostatin Powder) 1 appln DAILY EXT 07/13/16 09:00 08/12/16 08:59 07/30/16 08:56 1 APPLN Enteral Nutritional Formula (Boost Glucose Control) 0.5 can TIDM PO 07/13/16 07:15 08/12/16 07:14 07/30/16 08:27 0.5 CAN Loratadine (Claritin Tab) 10 mg QAM PO 07/16/16 08:00 08/15/16 07:59 07/30/16 08:29 10 MG Heparin Sodium (Porcine) (Heparin Sq 5000 Unit/0.5ml) 5,000 unit Q8 SQ 07/16/16 14:00 08/15/16 13:59 07/30/16 06:09 5,000 UNIT Morphine Sulfate (MoRPHine SULFATE INJ) 3 mg Q3HWA PRN IV 07/21/16 13:15 08/04/16 13:14 07/26/16 18:41 3 MG Sertraline HCl (Zoloft Tab) 50 mg QAM PO 07/23/16 08:00 08/22/16 07:59 07/30/16 08:32 50 MG Metolazone (Zaroxolyn Tab) 5 mg DAILY@0530 PO 07/26/16 05:30 08/25/16 05:29 07/30/16 05:16 5 MG Polyethylene (Miralax Powder Packet) 17 gm BID PO 07/26/16 09:30 08/25/16 09:29 07/30/16 08:26 17 GM Albuterol/ Ipratropium (Duoneb) 3 ml Q4RWA INH 07/26/16 16:00 08/25/16 15:59 07/30/16 10:37 3 ML Guaifenesin (Mucinex Contr Rel Tab) 600 mg Q12 PO 07/26/16 21:00 08/25/16 20:59 07/30/16 08:32 600 MG Isosorbide Mononitrate 60 mg 60 mg QAM PO 07/27/16 08:00 08/26/16 07:59 07/30/16 08:31 60 MG Furosemide/ Albumin Human (Lasix Inj/ Albumin 25%) 58 ml @ 60 mls/hr DAILY@0600,1200,1800 IV 07/26/16 18:10 08/25/16 18:09 07/30/16 06:05 60 MLS/HR Carvedilol (Coreg Tab) 3.125 mg BID PO 07/27/16 20:00 08/26/16 19:59 07/30/16 08:30 3.125 MG Sodium Chloride ([place] Nasal [place]) 2 sprays Q1HWA PRN NA 07/28/16 11:15 08/27/16 11:14 07/28/16 12:19 2 SPRAYS Potassium Chloride (Klor-Con Tab) 40 meq BID PO 07/30/16 08:00 08/29/16 07:59 07/30/16 08:34 40 MEQ Insulin Glargine (Lantus Solostar Pen) SEE PROTOCOL TEXT DAILY SC 07/30/16 08:00 08/29/16 07:59 07/30/16 08:56 13 UNIT Objective Vital Signs Date Time Temp Pulse Resp B/P Pulse Ox O2 Delivery O2 Flow Rate FiO2 07/30/16 10:37 78 16 95 Nasal Cannula 2.0 07/30/16 08:00 Nasal Cannula 2.0 07/30/16 07:16 36.5 71 20 135/82 97 Nasal Cannula 2.0 07/30/16 07:14 70 16 95 Nasal Cannula 2.0 07/30/16 06:14 57 132/80 07/30/16 05:17 73 114/72 07/30/16 00:43 36.4 67 20 124/52 97 Nasal Cannula 2.0 07/30/16 00:00 Nasal Cannula 2.0 07/29/16 19:10 72 16 95 Nasal Cannula 4.0 07/29/16 19:05 60 140/51 07/29/16 16:33 64 18 95 Nasal Cannula 4.0 07/29/16 16:00 Nasal Cannula 2.0 07/29/16 14:52 36.5 62 20 120/62 98 Nasal Cannula 4.0 07/29/16 13:42 36.1 50 20 108/62 07/29/16 12:39 36.2 60 20 108/70 07/29/16 12:03 36.2 60 20 112/70 99 Nasal Cannula 2.0 Physical Exam General Appearance: WD/WN, no apparent distress, + moderate distress Eyes: normal inspection ENT: normal ENT inspection Neck: supple, no adenopathy Respiratory/Chest: chest non-tender, lungs clear, + crackles Cardiovascular: regular rate, rhythm, no edema Abdomen: normal bowel sounds, non tender, soft Extremities: normal range of motion, non-tender Neurologic/Psychiatric: full time staff interpreter II-XII nml as tested, no motor/sensory deficits, alert, oriented x 3 Laboratory Results Last 24 Hours Test 07/29/16 20:11 07/30/16 05:29 07/30/16 07:43 07/30/16 11:25 Bedside Glucose 231 mg/dl 148 mg/dl 232 mg/dl Sodium Level 135 mmol/L Potassium Level 3.1 mmol/L Chloride Level 87 mmol/L Carbon Dioxide Level 36 mmol/L Anion Gap 12.0 mmol/L Blood Urea Nitrogen 38 mg/dl Creatinine 1.60 mg/dl Est Creatinine Clear Calc Drug Dose 35.4 ml/min Estimated GFR () 44.2 Estimated GFR (Non- 38.2 BUN/Creatinine Ratio 23.5 Random Glucose 155 mg/dl Calcium Level 9.7 mg/dl Assessment and Plan Acute on Chronic Kidney Disease - hypervolemic/ patients volume status appears to be improving - Cr /1.6 - per nephrology no dialysis indications at this time - patient had u/o of 4L yesterday I/<O -3L - currently on Lasix 80 mg tid with cont metolazone Bradycardia - decreased coreg to 3.125 mg bid Hypoxic Respiratory Failure - suspect 2/2 to volume - appreciate pulmonary input no indication for thoracentesis per pulmonary and thoracic surgery - cont mucinex - duonebs q6 hours - appreciate palliative care input - check BMP in am 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
[2016-07-31] VITALS (15 sets, daily range): BP systolic 104–135; BP diastolic 51–75; PULSE 64–81; TEMP 36.1–36.7; O2SAT 93–99
[2016-07-31] MEDS: METOLAZONE 5 MG TAB PO SCH (05:34)
[2016-07-31] MEDS: ALBUMIN 25% 50 ML with FUROSEMIDE INJ 80 MG IV SCH ×6 (05:58→17:55)
[2016-07-31] MEDS: HEPARIN SOD 5000 UNIT/0.5 ML CARP SQ SCH ×3 (06:06→21:00)
[2016-07-31 06:13] LABS: BUN/CREATININE RATIO 27.2 (10-20); CALCIUM 10.2 mg/dl (8.5-10.1); CREATININE 1.7 mg/dl (0.60-1.40); POTASSIUM 3.6 mmol/L (3.5-5.1)
[2016-07-31] MEDS: ALBUT/IPRATROP 3MG/0.5MG NEB 3 ML VIAL INH SCH ×4 (07:06→19:01)
[2016-07-31] MEDS: BOOST GLUCOSE CONTROL PO SCH ×3 (08:10→17:38)
[2016-07-31] MEDS: POLYETHYLENE (MIRALAX) 17 GM PACK PO SCH ×2 (08:11→20:49)
[2016-07-31] MEDS: NYSTATIN POWDER 15GM BTL EXT SCH (09:00)
[2016-07-31] MEDS: LORATADINE 10 MG TAB PO SCH (09:03)
[2016-07-31] MEDS: DOCUSATE SODIUM 100 MG CAP PO SCH ×2 (09:04→20:50)
[2016-07-31] MEDS: ASPIRIN 81 MG ECTAB PO SCH (09:04)
[2016-07-31] MEDS: ISOSORBIDE MONONITRATE 60 MG TABCR PO SCH (09:05)
[2016-07-31] MEDS: CLOPIDOGREL BISULFATE 75 MG TAB PO SCH (09:06)
[2016-07-31] MEDS: POTASSIUM CHLORIDE 20 MEQ TABCR PO SCH ×2 (09:06→20:51)
[2016-07-31] MEDS: GUAIFENESIN 600 MG TABCR PO SCH ×2 (09:07→20:49)
[2016-07-31] MEDS: SERTRALINE HCL 50 MG TAB PO SCH (09:07)
[2016-07-31] MEDS: FINASTERIDE 5 MG TAB PO SCH (09:07)
[2016-07-31] MEDS: INSULIN GLARGINE SOLOSTAR 100 UNITS/ML 3 ML PEN SC SCH (09:25)
[2016-07-31] MEDS: INSULIN ASPART 100 UNITS/ML 3 ML PEN SC SCH ×5 (09:25→20:55)
[2016-07-31] MEDS: CARVEDILOL 6.25 MG TAB PO SCH ×2 (09:30→20:50)
--- NOTE | 2016-07-31 13:58 | Hospitalist Progress Note ---
Hospitalist Progress Note Date of Service Jul 31, 2016. Subjective Pt evaluation today including: conversation w/ patient, physical exam, chart review, lab review, review of studies, review of inpatient medication list Patient had no acute issues overnight Denies any chest pain, SOB Constitutional: No fever Eyes: No worsening of vision ENT: No hearing loss Respiratory: + dyspnea on exertion, + shortness of breath, No cough Cardiovascular: No chest pain Abdomen: No constipation, No pain, No vomiting Musculoskeletal: No joint pain Male : No dysuria Neurologic: No memory loss Endo: No fatigue Skin: No rash Medications Current Inpatient Medications Medications (Trade) Dose Ordered Sig/Vijay Route Start Time Stop Time Status Last Admin Dose Admin Acetaminophen (Tylenol Tab) 650 mg Q4H PRN PO 07/12/16 04:00 08/11/16 03:59 07/15/16 16:02 650 MG Al Hydrox/Mg Hydrox/Simethicone (Maalox Max Susp) 15 ml Q4H PRN PO 07/12/16 04:00 08/11/16 03:59 Magnesium Hydroxide (Milk Of Magnesia Susp) 30 ml Q12H PRN PO 07/12/16 04:00 08/11/16 03:59 07/25/16 09:22 30 ML Ondansetron HCl (Zofran Inj) 4 mg Q6H PRN IV 07/12/16 04:00 08/11/16 03:59 Nitroglycerin (Nitrostat Tab) 0.4 mg UD PRN SL 07/12/16 04:00 08/11/16 03:59 Aspirin (Ecotrin Tab) 81 mg DAILY PO 07/12/16 09:00 08/11/16 08:59 07/31/16 09:04 81 MG Clopidogrel Bisulfate (plAVix TAB) 75 mg DAILY PO 07/12/16 09:00 08/11/16 08:59 07/31/16 09:06 75 MG Docusate Sodium (coLACE CAP) 100 mg BID PO 07/12/16 09:00 08/11/16 08:59 07/31/16 09:04 100 MG Finasteride (Proscar Tab) 5 mg DAILY PO 07/12/16 09:00 08/11/16 08:59 07/31/16 09:07 5 MG Insulin Aspart (novoLOG ASPART) SLIDING SCALE If C... ACHS SC 07/12/16 11:00 08/11/16 10:59 07/31/16 12:54 17 UNITS Glucose (Glucose 40% Gel) 15-30 GRAMS 15 GRAMS... UD PRN PO 07/12/16 08:45 08/11/16 08:44 Glucose (Glucose Chew Tab) 4-8 Tablets 4 Tabl... UD PRN PO 07/12/16 08:45 08/11/16 08:44 Dextrose (Dextrose 50% 50ML Syringe) 25-50ML OF 50% DW IV FOR... UD PRN IV 07/12/16 08:45 08/11/16 08:44 Glucagon (Glucagon Inj) 1 mg UD PRN SQ 07/12/16 08:45 08/11/16 08:44 Miscellaneous Information (Consult Glycemic Management Pharmacy) 1 ea UD PRN N/A 07/12/16 09:29 08/11/16 09:28 Nystatin (Mycostatin Powder) 1 appln DAILY EXT 07/13/16 09:00 08/12/16 08:59 07/31/16 09:00 1 APPLN Enteral Nutritional Formula (Boost Glucose Control) 0.5 can TIDM PO 07/13/16 07:15 08/12/16 07:14 07/31/16 12:17 0.5 CAN Loratadine (Claritin Tab) 10 mg QAM PO 07/16/16 08:00 08/15/16 07:59 07/31/16 09:03 10 MG Heparin Sodium (Porcine) (Heparin Sq 5000 Unit/0.5ml) 5,000 unit Q8 SQ 07/16/16 14:00 08/15/16 13:59 07/31/16 12:55 5,000 UNIT Morphine Sulfate (MoRPHine SULFATE INJ) 3 mg Q3HWA PRN IV 07/21/16 13:15 08/04/16 13:14 07/26/16 18:41 3 MG Sertraline HCl (Zoloft Tab) 50 mg QAM PO 07/23/16 08:00 08/22/16 07:59 07/31/16 09:07 50 MG Metolazone (Zaroxolyn Tab) 5 mg DAILY@0530 PO 07/26/16 05:30 08/25/16 05:29 07/31/16 05:34 5 MG Polyethylene (Miralax Powder Packet) 17 gm BID PO 07/26/16 09:30 08/25/16 09:29 07/31/16 08:11 17 GM Albuterol/ Ipratropium (Duoneb) 3 ml Q4RWA INH 07/26/16 16:00 08/25/16 15:59 07/31/16 11:10 3 ML Guaifenesin (Mucinex Contr Rel Tab) 600 mg Q12 PO 07/26/16 21:00 08/25/16 20:59 07/31/16 09:07 600 MG Isosorbide Mononitrate 60 mg 60 mg QAM PO 07/27/16 08:00 08/26/16 07:59 07/31/16 09:05 60 MG Furosemide/ Albumin Human (Lasix Inj/ Albumin 25%) 58 ml @ 60 mls/hr DAILY@0600,1200,1800 IV 07/26/16 18:10 08/25/16 18:09 07/31/16 12:14 60 MLS/HR Carvedilol (Coreg Tab) 3.125 mg BID PO 07/27/16 20:00 08/26/16 19:59 07/31/16 09:30 3.125 MG Sodium Chloride ([place] Nasal [place]) 2 sprays Q1HWA PRN NA 07/28/16 11:15 08/27/16 11:14 07/28/16 12:19 2 SPRAYS Potassium Chloride (Klor-Con Tab) 40 meq BID PO 07/30/16 08:00 08/29/16 07:59 07/31/16 09:06 40 MEQ Insulin Glargine (Lantus Solostar Pen) SEE PROTOCOL TEXT DAILY SC 07/30/16 08:00 08/29/16 07:59 07/31/16 09:25 10 UNIT Objective Vital Signs Date Time Temp Pulse Resp B/P Pulse Ox O2 Delivery O2 Flow Rate FiO2 07/31/16 12:09 36.2 75 18 116/66 93 Nasal Cannula 2.0 07/31/16 11:10 70 16 94 Nasal Cannula 2.0 07/31/16 08:00 Nasal Cannula 2.0 07/31/16 07:06 81 16 94 Nasal Cannula 2.0 07/31/16 07:05 36.3 70 20 133/51 99 2.0 07/31/16 06:31 36.3 64 20 118/75 94 2.0 07/31/16 06:00 75 124/73 07/31/16 05:36 73 122/68 07/31/16 01:05 36.3 67 20 104/61 95 Nasal Cannula 2.0 07/31/16 00:00 Nasal Cannula 2.0 07/30/16 20:00 Nasal Cannula 2.0 07/30/16 18:45 70 16 98 Nasal Cannula 2.0 07/30/16 18:30 36.3 73 14 138/64 98 Nasal Cannula 2.0 07/30/16 16:00 Nasal Cannula 2.0 07/30/16 15:42 36.4 68 20 115/65 96 Nasal Cannula 2.0 07/30/16 15:11 76 16 94 Nasal Cannula 2.0 Physical Exam General Appearance: WD/WN, no apparent distress Eyes: normal inspection ENT: normal ENT inspection Neck: supple Respiratory/Chest: chest non-tender, + crackles, + rhonchi Cardiovascular: regular rate, rhythm, no edema, no gallop, no murmur Abdomen: normal bowel sounds, non tender, soft Extremities: normal range of motion, non-tender Neurologic/Psychiatric: planning intern II-XII nml as tested, no motor/sensory deficits, alert, oriented x 3 Skin: normal color, warm/dry, no rash Lymphatic: no adenopathy Laboratory Results Last 24 Hours Test 07/30/16 16:46 07/30/16 20:28 07/31/16 05:16 07/31/16 07:52 Bedside Glucose 143 mg/dl 244 mg/dl 135 mg/dl Sodium Level 134 mmol/L Potassium Level 3.6 mmol/L Chloride Level 89 mmol/L Carbon Dioxide Level 38 mmol/L Anion Gap 7.0 mmol/L Blood Urea Nitrogen 46 mg/dl Creatinine 1.70 mg/dl Est Creatinine Clear Calc Drug Dose 33.4 ml/min Estimated GFR () 41.1 Estimated GFR (Non- 35.5 BUN/Creatinine Ratio 27.2 Random Glucose 118 mg/dl Calcium Level 10.2 mg/dl Chemistry Specimen Hemolysis Test 07/31/16 11:25 Bedside Glucose 230 mg/dl Assessment and Plan Acute on Chronic Kidney Disease - hypervolemic/ patients volume status appears to be improving - Cr /1.7 - per nephrology no dialysis indications at this time - patient had u/o of 3L yesterday I/<O -2L - currently on Lasix 80 mg tid with cont metolazone Bradycardia - decreased coreg to 3.125 mg bid Hypoxic Respiratory Failure - suspect 2/2 to volume - appreciate pulmonary input no indication for thoracentesis per pulmonary and thoracic surgery - cont mucinex - duonebs q6 hours - appreciate palliative care input - check BMP in am Hypokalemia - cont KCL 40 meq bid 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
--- NOTE | 2016-07-31 14:59 | Pharmacy Progress Note ---
Glycemic Control: Progress Nt Date of Service Jul 31, 2016. Scope Glycemic Pharmacist consulted by Dr Velazquez on 07/12/16 for glycemic control and to write orders per [facility] inpatient glycemic control protocol. Objective Accuchecks BSG (last 24hrs): Test 07/30/16 16:46 07/30/16 20:28 07/31/16 05:16 07/31/16 07:52 Bedside Glucose 143 mg/dl (70-99) 244 mg/dl (70-99) 135 mg/dl (70-99) Random Glucose 118 mg/dl (70-99) Test 07/31/16 11:25 Bedside Glucose 230 mg/dl (70-99) Laboratory Data (last 24hrs) Test 07/31/16 05:16 Anion Gap 7.0 mmol/L BUN/Creatinine Ratio 27.2 Blood Urea Nitrogen 46 mg/dl Creatinine 1.70 mg/dl Potassium Level 3.6 mmol/L Sodium Level 134 mmol/L HbA1c: Test 07/13/16 05:51 Hemoglobin A1c 7.6 % (4.5-5.6) H Recent Pertinent Medications Outpatient Anti-diabetic Regimen: * Glipizide 10mg PO BID * Januvia 50mg PO daily The patient is currently receiving: * Basal insulin: Lantus every 24 hours given in the morning - dose per AM fasting BSG If BSG 110mg/dl or below --> Hold Lantus If BSG 111 - 140mg/dl --> Administer Lantus 10 units If BSG 141mg/dl or above --> Administer Lantus 13 units * Correctional Insulin: Novolog Correction per scale ACHS Goal Range: Low 120 mg/dL - High 140 mg/dL Correction Factor: 20 mg/dL/unit * Prandial insulin: Per carb ratio of 1 unit per 7 grams CHO consumed * Oral Agents: On hold for admission Risk Factors for Insulin Resistance: * Fluid overload * Diet Risk Factors for Insulin Sensitivity: * Impaired renal function Assessment & Plan ASSESSMENT: * 85yo T2DM male with adequately controlled diabetes as an outpatient per recent A1c * A1c may be slightly unreliable d/t CKD and alterations in RBC turnover rate. Best to assess degree of control based on POC BSGs. * Depending on discharge plan (palliative care) resuming home regimen at discharge may be appropriate vs d/c all antidiabetic regimen for comfort. * Pt is maintained on oral agents as an outpatient. Oral agents on hold for admission and patient was initiated on SQ basal bolus insulin regimen for inpatient use. Doses have been titrated daily based on BSG trends. * Pt has received ~45 units of insulin per day over the past 3 days with adequate control * AM fasting BSGs are in goal range at 109, 155, & 135 with 10-13 units of Lantus daily given in the morning * Post-prandial BSGs are adequately controlled based on age and co-morbidities with current scale. * Pharmacy has made minimal changes over the past few days. Will sign off of consult. PLAN FOR INPATIENT GLYCEMIC CONTROL: * Hold outpatient oral diabetes medications - Depending on discharge plan ( palliative care) resuming home regimen at discharge may be appropriate vs d/c all antidiabetic regimen for comfort. * Basal insulin with LANTUS SQ daily in the morning based on AM fasting BSG * If BSG 110mg/dl or below --> Hold Lantus * If BSG 111 - 140mg/dl --> Administer Lantus 10 units * If BSG 141mg/dl or above --> Administer Lantus 13 units * Correctional Insulin with NOVOLOG per scale ACHS or Q6hrs while NPO * Goal Range: Low 120 mg/dL - High 140 mg/dL * Correction Factor: 20 mg/dL/unit * Nutritional / Prandial insulin per carb ratio of 1 unit per 7 grams CHO consumed * Pharmacy is signing off of glycemic consult. Please feel free to re-consult if needed. Thanks. * Please note that the plan above was derived based on current level of insulin resistance and hospital stress. These recommendations are appropriate for inpatient admission only. Plan of care upon discharge will need to be reassessed to avoid potential outpatient hypo/hyperglycemia. Thank you.
[2016-08-01] VITALS (9 sets, daily range): BP systolic 109–134; BP diastolic 50–83; PULSE 71–82; TEMP 36.3–36.5; O2SAT 89–96
[2016-08-01] MEDS: METOLAZONE 5 MG TAB PO SCH (06:07)
[2016-08-01] MEDS: ALBUMIN 25% 50 ML with FUROSEMIDE INJ 80 MG IV SCH ×6 (06:08→18:12)
[2016-08-01] MEDS: HEPARIN SOD 5000 UNIT/0.5 ML CARP SQ SCH ×3 (06:10→20:21)
[2016-08-01] MEDS: ALBUT/IPRATROP 3MG/0.5MG NEB 3 ML VIAL INH SCH ×4 (07:15→18:23)
[2016-08-01 08:14] LABS: BUN/CREATININE RATIO 27.4 (10-20); CALCIUM 10.3 mg/dl (8.5-10.1); CREATININE 1.7 mg/dl (0.60-1.40); POTASSIUM 3.5 mmol/L (3.5-5.1)
[2016-08-01] MEDS: CLOPIDOGREL BISULFATE 75 MG TAB PO SCH (08:38)
[2016-08-01] MEDS: GUAIFENESIN 600 MG TABCR PO SCH ×2 (08:39→20:12)
[2016-08-01] MEDS: ASPIRIN 81 MG ECTAB PO SCH (08:39)
[2016-08-01] MEDS: FINASTERIDE 5 MG TAB PO SCH (08:39)
[2016-08-01] MEDS: POLYETHYLENE (MIRALAX) 17 GM PACK PO SCH ×2 (08:39→20:14)
[2016-08-01] MEDS: LORATADINE 10 MG TAB PO SCH (08:39)
[2016-08-01] MEDS: ISOSORBIDE MONONITRATE 60 MG TABCR PO SCH (08:39)
[2016-08-01] MEDS: SERTRALINE HCL 50 MG TAB PO SCH (08:40)
[2016-08-01] MEDS: POTASSIUM CHLORIDE 20 MEQ TABCR PO SCH ×2 (08:40→20:14)
[2016-08-01] MEDS: CARVEDILOL 6.25 MG TAB PO SCH ×2 (08:40→20:13)
[2016-08-01] MEDS: DOCUSATE SODIUM 100 MG CAP PO SCH ×2 (08:40→20:13)
[2016-08-01] MEDS: NYSTATIN POWDER 15GM BTL EXT SCH (08:41)
[2016-08-01] MEDS: BOOST GLUCOSE CONTROL PO SCH ×3 (08:45→17:34)
[2016-08-01] MEDS: INSULIN ASPART 100 UNITS/ML 3 ML PEN SC SCH ×4 (08:59→20:33)
[2016-08-01] MEDS: INSULIN GLARGINE SOLOSTAR 100 UNITS/ML 3 ML PEN SC SCH (09:00)
--- NOTE | 2016-08-01 13:08 | Progress Note ---
Subjective Date of Service: Aug 01, 2016. Subjective pt states he is feeling better, son is at bedside and request re evaluation for [facility]. pt has 20 day hospital stay thus far. Pt states he feels he is breathing much better and can walk farther that last week but is not at his baseline Review of Systems Constitutional: No chills, No fever Respiratory: + dyspnea on exertion, + shortness of breath, No cough Cardiac: No chest pain, No edema (has not edema on lower legs) Abdomen: No diarrhea, No nausea, No pain, No vomiting Male : No dysuria, No urinary frequency Objective Vital Signs Date Time Temp Pulse Resp B/P Pulse Ox O2 Delivery O2 Flow Rate FiO2 08/01/16 07:47 36.5 71 20 124/76 93 Room Air 08/01/16 07:16 73 14 89 Room Air 07/31/16 23:38 36.7 73 20 120/63 94 CPAP 07/31/16 20:00 Nasal Cannula 2.0 07/31/16 19:15 36.2 68 12 114/66 95 Nasal Cannula 2.0 07/31/16 18:50 80 14 94 Nasal Cannula 2.0 07/31/16 17:35 36.1 74 12 135/55 94 Nasal Cannula 2.0 07/31/16 16:00 Nasal Cannula 2.0 07/31/16 15:27 74 16 93 BiPAP/CPAP 2.0 07/31/16 15:24 36.2 70 18 124/67 98 BiPAP 2.0 07/31/16 14:12 36.3 74 16 134/72 96 BiPAP 2.0 07/31/16 12:09 36.2 75 18 116/66 93 Nasal Cannula 2.0 07/31/16 11:10 70 16 94 Nasal Cannula 2.0 Physical Exam General Appearance: WD/WN, + mild distress Neck: supple, no JVD Respiratory/Chest: chest non-tender, + decreased breath sounds Cardiovascular: regular rate, rhythm, + systolic murmur Abdomen: normal bowel sounds, soft Extremities: normal range of motion, non-tender Neurologic/Psychiatric: alert, oriented x 3 Laboratory Results Last 24 Hours Test 07/31/16 11:25 07/31/16 16:25 07/31/16 20:01 08/01/16 07:03 Bedside Glucose 230 mg/dl 219 mg/dl 235 mg/dl Sodium Level 134 mmol/L Potassium Level 3.5 mmol/L Chloride Level 90 mmol/L Carbon Dioxide Level 35 mmol/L Anion Gap 9.0 mmol/L Blood Urea Nitrogen 47 mg/dl Creatinine 1.70 mg/dl Est Creatinine Clear Calc Drug Dose 33.4 ml/min Estimated GFR () 41.1 Estimated GFR (Non- 35.5 BUN/Creatinine Ratio 27.4 Random Glucose 118 mg/dl Calcium Level 10.3 mg/dl Assessment and Plan Hypoxic Respiratory Failure, secondary to acute systolic heart failure, no thoracentesis per pulmonary and thoracic surgery mobilize secretions to ease effort, continue duonebs q6 hours FILIBERTO nocturnal bipap - appreciate palliative care input, family is interested in possible acute rehab Acute on Chronic Kidney Disease Lasix 80 mg/Albumin tid with cont metolazone, nephrology is following, hypokalemia KCL 40 meq bid 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
[2016-08-02] VITALS (8 sets, daily range): BP systolic 102–145; BP diastolic 53–77; PULSE 63–83; TEMP 36.2–37; O2SAT 94–98
[2016-08-02] MEDS: HEPARIN SOD 5000 UNIT/0.5 ML CARP SQ SCH ×3 (05:34→20:41)
[2016-08-02] MEDS: METOLAZONE 5 MG TAB PO SCH (05:36)
[2016-08-02] MEDS: ALBUMIN 25% 50 ML with FUROSEMIDE INJ 80 MG IV SCH ×2 (05:39)
[2016-08-02] MEDS: ALBUT/IPRATROP 3MG/0.5MG NEB 3 ML VIAL INH SCH ×4 (07:08→19:21)
[2016-08-02] MEDS: POLYETHYLENE (MIRALAX) 17 GM PACK PO SCH ×2 (08:24→20:35)
[2016-08-02] MEDS: BOOST GLUCOSE CONTROL PO SCH ×3 (08:24→18:15)
[2016-08-02] MEDS: FINASTERIDE 5 MG TAB PO SCH (08:24)
[2016-08-02] MEDS: POTASSIUM CHLORIDE 20 MEQ TABCR PO SCH ×2 (08:24→20:36)
[2016-08-02] MEDS: DOCUSATE SODIUM 100 MG CAP PO SCH ×2 (08:25→20:34)
[2016-08-02] MEDS: CLOPIDOGREL BISULFATE 75 MG TAB PO SCH (08:25)
[2016-08-02] MEDS: LORATADINE 10 MG TAB PO SCH (08:25)
[2016-08-02] MEDS: NYSTATIN POWDER 15GM BTL EXT SCH (08:25)
[2016-08-02] MEDS: ASPIRIN 81 MG ECTAB PO SCH (08:25)
[2016-08-02] MEDS: CARVEDILOL 6.25 MG TAB PO SCH ×2 (08:25→20:35)
[2016-08-02] MEDS: GUAIFENESIN 600 MG TABCR PO SCH ×2 (08:25→20:34)
[2016-08-02] MEDS: SERTRALINE HCL 50 MG TAB PO SCH (08:26)
[2016-08-02] MEDS: ISOSORBIDE MONONITRATE 60 MG TABCR PO SCH (08:26)
[2016-08-02] MEDS: INSULIN GLARGINE SOLOSTAR 100 UNITS/ML 3 ML PEN SC SCH (08:37)
[2016-08-02] MEDS: INSULIN ASPART 100 UNITS/ML 3 ML PEN SC SCH ×4 (08:37→20:40)
[2016-08-02] MEDS: FUROSEMIDE 80 MG TAB PO SCH ×2 (12:30→18:16)
--- NOTE | 2016-08-02 13:35 | Progress Note ---
Subjective Date of Service: Aug 02, 2016. Subjective pt states is slightly more winded with exertion than on 08/01, overall clinically looks improved to me from yesterday, will attempt transtion to po lasix Review of Systems Constitutional: + fatigue, + weakness, No chills, No fever Respiratory: + dyspnea on exertion, No cough, No shortness of breath Cardiac: No chest pain, No edema, No orthopnea Abdomen: No constipation, No diarrhea, No nausea Neurologic: + weakness, No balance problems, No memory loss Objective Vital Signs Date Time Temp Pulse Resp B/P Pulse Ox O2 Delivery O2 Flow Rate FiO2 08/02/16 07:05 70 16 95 Room Air 08/02/16 06:50 70 20 132/77 95 Nasal Cannula 1.0 08/02/16 06:15 37.0 68 18 114/77 95 Ambu-Bag 1.0 08/02/16 05:45 83 145/61 08/02/16 00:13 36.6 66 20 102/70 94 Room Air 08/02/16 00:00 Nasal Cannula 1.0 08/01/16 20:07 36.3 74 18 134/83 96 Nasal Cannula 1.0 08/01/16 18:23 82 16 90 Room Air 08/01/16 16:30 Room Air 2.0 08/01/16 15:10 77 14 91 Room Air 08/01/16 15:03 36.3 77 18 122/50 95 Nasal Cannula 1.0 08/01/16 13:15 78 18 114/72 94 Nasal Cannula 2.0 08/01/16 12:30 81 20 109/68 94 Nasal Cannula 2.0 08/01/16 12:15 78 20 122/75 96 Nasal Cannula 2.0 Physical Exam General Appearance: WD/WN, + mild distress Eyes: PERRL, EOMI Neck: supple, no JVD Respiratory/Chest: no respiratory distress, + decreased breath sounds Cardiovascular: regular rate, rhythm, + systolic murmur Abdomen: normal bowel sounds, non tender, soft Extremities: no pedal edema, no calf tenderness Laboratory Results Last 24 Hours Test 08/01/16 11:48 08/01/16 20:30 Bedside Glucose 242 mg/dl 196 mg/dl Assessment and Plan Hypoxic Respiratory Failure, secondary to acute systolic heart failure, will change to po lasix tid 08/02 mobilize secretions to ease effort, continue duonebs q6 hours FILIBERTO nocturnal bipap - appreciate palliative care input, family is interested in possible acute rehab Acute on Chronic Kidney Disease lasix with cont once daily metolazone, nephrology is following, hypokalemia KCL 40 meq bid 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
[2016-08-03] VITALS (8 sets, daily range): BP systolic 97–156; BP diastolic 60–83; PULSE 59–84; TEMP 36.1–36.6; O2SAT 86–98
[2016-08-03] MEDS: METOLAZONE 5 MG TAB PO SCH (05:44)
[2016-08-03] MEDS: HEPARIN SOD 5000 UNIT/0.5 ML CARP SQ SCH ×3 (05:46→20:56)
[2016-08-03] MEDS: ALBUT/IPRATROP 3MG/0.5MG NEB 3 ML VIAL INH SCH ×4 (07:33→19:52)
[2016-08-03] MEDS: FINASTERIDE 5 MG TAB PO SCH (08:06)
[2016-08-03] MEDS: CLOPIDOGREL BISULFATE 75 MG TAB PO SCH (08:06)
[2016-08-03] MEDS: DOCUSATE SODIUM 100 MG CAP PO SCH ×2 (08:06→19:38)
[2016-08-03] MEDS: ISOSORBIDE MONONITRATE 60 MG TABCR PO SCH (08:06)
[2016-08-03] MEDS: SERTRALINE HCL 50 MG TAB PO SCH (08:06)
[2016-08-03] MEDS: ASPIRIN 81 MG ECTAB PO SCH (08:06)
[2016-08-03] MEDS: CARVEDILOL 6.25 MG TAB PO SCH ×2 (08:07→19:38)
[2016-08-03] MEDS: FUROSEMIDE 80 MG TAB PO SCH ×2 (08:07→11:40)
[2016-08-03] MEDS: POTASSIUM CHLORIDE 20 MEQ TABCR PO SCH ×2 (08:07→19:39)
[2016-08-03] MEDS: LORATADINE 10 MG TAB PO SCH (08:07)
[2016-08-03] MEDS: POLYETHYLENE (MIRALAX) 17 GM PACK PO SCH ×2 (08:07→19:39)
[2016-08-03] MEDS: GUAIFENESIN 600 MG TABCR PO SCH (08:07)
[2016-08-03] MEDS: NYSTATIN POWDER 15GM BTL EXT SCH (08:08)
[2016-08-03] MEDS: BOOST GLUCOSE CONTROL PO SCH ×3 (08:57→17:46)
[2016-08-03] MEDS: INSULIN ASPART 100 UNITS/ML 3 ML PEN SC SCH ×4 (09:01→20:56)
[2016-08-03] MEDS: INSULIN GLARGINE SOLOSTAR 100 UNITS/ML 3 ML PEN SC SCH (09:02)
--- NOTE | 2016-08-03 11:06 | Nephrology Progress Note ---
Nephrology Progress Note Date of Service: Aug 03, 2016. Subjective 85 yo male with chf and ckd stage 4 who is open to dialysis if necessary. given aggressive iv diuretics and has diuresed appropriately and walking 200 feet at physical therapy. pt complaining of fluid restriction. Objective Date Time Temp Pulse Resp B/P Pulse Ox O2 Delivery O2 Flow Rate FiO2 08/03/16 07:59 36.6 72 22 144/76 94 08/03/16 07:59 Nasal Cannula 1.0 08/03/16 07:33 59 16 98 BiPAP/CPAP 08/03/16 00:30 CPAP 08/03/16 00:16 36.1 73 20 156/83 97 BiPAP 08/02/16 19:22 78 16 94 Room Air 08/02/16 16:30 Nasal Cannula 1.0 08/02/16 15:23 36.2 63 20 111/53 98 08/02/16 11:58 80 16 97 Nasal Cannula 1.0 Physical Exam: General-aaox3, obese Eyes-no scleral icterus ENT-mmm Neck-supple Lungs-cta Heart-rrr Abdomen-bs+ s/nt/nd Extremities-no edema Neuro-nonfocal Derm-no rash Current Inpatient Medications Medications (Trade) Dose Ordered Sig/Vijay Route Start Time Stop Time Status Last Admin Dose Admin Acetaminophen (Tylenol Tab) 650 mg Q4H PRN PO 07/12/16 04:00 08/11/16 03:59 07/15/16 16:02 650 MG Al Hydrox/Mg Hydrox/Simethicone (Maalox Max Susp) 15 ml Q4H PRN PO 07/12/16 04:00 08/11/16 03:59 Magnesium Hydroxide (Milk Of Magnesia Susp) 30 ml Q12H PRN PO 07/12/16 04:00 08/11/16 03:59 07/25/16 09:22 30 ML Ondansetron HCl (Zofran Inj) 4 mg Q6H PRN IV 07/12/16 04:00 08/11/16 03:59 Nitroglycerin (Nitrostat Tab) 0.4 mg UD PRN SL 07/12/16 04:00 08/11/16 03:59 Aspirin (Ecotrin Tab) 81 mg DAILY PO 07/12/16 09:00 08/11/16 08:59 08/03/16 08:06 81 MG Clopidogrel Bisulfate (plAVix TAB) 75 mg DAILY PO 07/12/16 09:00 08/11/16 08:59 08/03/16 08:06 75 MG Docusate Sodium (coLACE CAP) 100 mg BID PO 07/12/16 09:00 08/11/16 08:59 08/03/16 08:06 100 MG Finasteride (Proscar Tab) 5 mg DAILY PO 07/12/16 09:00 08/11/16 08:59 08/03/16 08:06 5 MG Insulin Aspart (novoLOG ASPART) SLIDING SCALE If C... ACHS SC 07/12/16 11:00 08/11/16 10:59 08/03/16 09:01 10 UNITS Glucose (Glucose 40% Gel) 15-30 GRAMS 15 GRAMS... UD PRN PO 07/12/16 08:45 08/11/16 08:44 Glucose (Glucose Chew Tab) 4-8 Tablets 4 Tabl... UD PRN PO 07/12/16 08:45 08/11/16 08:44 Dextrose (Dextrose 50% 50ML Syringe) 25-50ML OF 50% DW IV FOR... UD PRN IV 07/12/16 08:45 08/11/16 08:44 Glucagon (Glucagon Inj) 1 mg UD PRN SQ 07/12/16 08:45 08/11/16 08:44 Nystatin (Mycostatin Powder) 1 appln DAILY EXT 07/13/16 09:00 08/12/16 08:59 08/03/16 08:08 1 APPLN Enteral Nutritional Formula (Boost Glucose Control) 0.5 can TIDM PO 07/13/16 07:15 08/12/16 07:14 08/03/16 08:57 0.5 CAN Loratadine (Claritin Tab) 10 mg QAM PO 07/16/16 08:00 08/15/16 07:59 08/03/16 08:07 10 MG Heparin Sodium (Porcine) (Heparin Sq 5000 Unit/0.5ml) 5,000 unit Q8 SQ 07/16/16 14:00 08/15/16 13:59 08/03/16 05:46 5,000 UNIT Morphine Sulfate (MoRPHine SULFATE INJ) 3 mg Q3HWA PRN IV 07/21/16 13:15 08/04/16 13:14 07/26/16 18:41 3 MG Sertraline HCl (Zoloft Tab) 50 mg QAM PO 07/23/16 08:00 08/22/16 07:59 08/03/16 08:06 50 MG Metolazone (Zaroxolyn Tab) 5 mg DAILY@0530 PO 07/26/16 05:30 08/25/16 05:29 08/03/16 05:44 5 MG Polyethylene (Miralax Powder Packet) 17 gm BID PO 07/26/16 09:30 08/25/16 09:29 08/03/16 08:07 17 GM Albuterol/ Ipratropium (Duoneb) 3 ml Q4RWA INH 07/26/16 16:00 08/25/16 15:59 08/03/16 07:33 3 ML Guaifenesin (Mucinex Contr Rel Tab) 600 mg Q12 PO 07/26/16 21:00 08/25/16 20:59 08/03/16 08:07 600 MG Isosorbide Mononitrate (Imdur Ext Rel Tab) 60 mg QAM PO 07/27/16 08:00 08/26/16 07:59 08/03/16 08:06 60 MG Carvedilol (Coreg Tab) 3.125 mg BID PO 07/27/16 20:00 08/26/16 19:59 08/03/16 08:07 3.125 MG Sodium Chloride (Major Nasal [place]) 2 sprays Q1HWA PRN NA 07/28/16 11:15 08/27/16 11:14 07/28/16 12:19 2 SPRAYS Potassium Chloride (Klor-Con Tab) 40 meq BID PO 07/30/16 08:00 08/29/16 07:59 08/03/16 08:07 40 MEQ Insulin Glargine (Lantus Solostar Pen) SEE PROTOCOL TEXT DAILY SC 07/30/16 08:00 08/29/16 07:59 08/03/16 09:02 13 UNIT Furosemide (Lasix Tab) 80 mg TIDM PO 08/02/16 12:00 09/01/16 11:59 08/03/16 08:07 80 MG Last 24 Hours Test 08/02/16 11:29 08/02/16 16:47 08/02/16 19:57 08/03/16 07:41 Bedside Glucose 217 mg/dl 173 mg/dl 274 mg/dl 159 mg/dl Assessment & Plan CKD stage 4-creatinine stable despite aggressive diuretics. continue the metolazone 5mg a day and lasix 80 po tid. will broaden the fluid restriction to 1500cc to help with his dry mouth. anticipate he will restart to gain some weight as an outpt and will adjust diuretics as outpt accordingly. ok from renal perspective to be discharged once medically cleared by hospitalist. hypokalemia-k of 3.5 at last check and may need oral potassium supplement adjusted with the oral diuretics. will recheck k again tomorrow.
--- NOTE | 2016-08-03 16:39 | Progress Note ---
Subjective Date of Service: Aug 03, 2016. Subjective pt maybe slightly more short of breath two days in a row, will increase oral diuretic, son at bedside and updated Review of Systems Constitutional: + weakness, No chills, No fever Respiratory: + dyspnea on exertion, No cough, No shortness of breath Cardiac: + edema, No chest pain Abdomen: No diarrhea, No nausea, No pain, No vomiting Male : No dysuria, No urinary frequency Psychiatric: No anhedonism, No depression symptoms Heme: No abnormal bleeding/bruising, No clotting problems Objective Vital Signs Date Time Temp Pulse Resp B/P Pulse Ox O2 Delivery O2 Flow Rate FiO2 08/03/16 16:15 77 16 94 Room Air 08/03/16 15:12 Room Air 08/03/16 14:22 36.5 79 20 97/60 95 08/03/16 12:14 82 14 108/66 97 Room Air 08/03/16 11:12 77 16 94 Room Air 08/03/16 07:59 36.6 72 22 144/76 94 08/03/16 07:59 Nasal Cannula 1.0 08/03/16 07:33 59 16 98 BiPAP/CPAP 08/03/16 00:30 CPAP 08/03/16 00:16 36.1 73 20 156/83 97 BiPAP 08/02/16 19:22 78 16 94 Room Air Physical Exam General Appearance: WD/WN, + mild distress Neck: supple, no JVD Respiratory/Chest: chest non-tender, + rales, + rhonchi Cardiovascular: regular rate, rhythm, + systolic murmur Abdomen: normal bowel sounds, non tender, soft Extremities: + pedal edema, + pertinent finding Neurologic/Psychiatric: alert, oriented x 3 Skin: normal color, warm/dry Laboratory Results Last 24 Hours Test 08/02/16 16:47 08/02/16 19:57 08/03/16 07:41 08/03/16 12:02 Bedside Glucose 173 mg/dl 274 mg/dl 159 mg/dl 254 mg/dl Assessment and Plan Hypoxic Respiratory Failure, secondary to acute systolic heart failure, will change to po lasix tid 08/02, additional iv dose then increase oral to 120 mg tid mobilize secretions to ease effort, continue duonebs q6 hours IFLIBERTO nocturnal bipap - appreciate palliative care input, family is interested in possible acute rehab Acute on Chronic Kidney Disease lasix with cont once daily metolazone, nephrology is following, hypokalemia KCL 40 meq bid 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 DNR Continued [facility] stay due to: multiple IV medications needed
[2016-08-03] MEDS ORDERED: FUROSEMIDE INJ 80 MG in SYRINGE 0 ML IV SCH (16:45)
[2016-08-04] VITALS (8 sets, daily range): BP systolic 111–144; BP diastolic 61–102; PULSE 73–91; TEMP 36.2–36.9; O2SAT 91–99
[2016-08-04] MEDS: HEPARIN SOD 5000 UNIT/0.5 ML CARP SQ SCH ×3 (06:21→21:14)
[2016-08-04] MEDS: METOLAZONE 5 MG TAB PO SCH (06:26)
[2016-08-04] MEDS: ALBUT/IPRATROP 3MG/0.5MG NEB 3 ML VIAL INH SCH ×4 (07:42→19:38)
[2016-08-04 07:53] LABS: HEMATOCRIT 37.8 % (42-52); MEAN CELL VOLUME 94.5 fL (80-100); MEAN CORPUSCULAR HEMOGLOBIN 30.5 pg (25-34); MEAN CORPUSCULAR HGB CONC 32.3 g/dl (32-36); MEAN PLATELET VOLUME 10.2 fL (7.4-10.4); PLATELET COUNT 227 K/uL (130-400); WHITE BLOOD COUNT 8.95 K/uL (4.8-10.8)
[2016-08-04] MEDS: ISOSORBIDE MONONITRATE 60 MG TABCR PO SCH (08:20)
[2016-08-04] MEDS: SERTRALINE HCL 50 MG TAB PO SCH (08:20)
[2016-08-04] MEDS: FUROSEMIDE 40 MG TAB PO SCH ×3 (08:20→17:31)
[2016-08-04] MEDS: CLOPIDOGREL BISULFATE 75 MG TAB PO SCH (08:20)
[2016-08-04] MEDS: ASPIRIN 81 MG ECTAB PO SCH (08:20)
[2016-08-04] MEDS: FINASTERIDE 5 MG TAB PO SCH (08:20)
[2016-08-04] MEDS: DOCUSATE SODIUM 100 MG CAP PO SCH ×2 (08:20→21:15)
[2016-08-04] MEDS: POTASSIUM CHLORIDE 20 MEQ TABCR PO SCH ×2 (08:20→21:16)
[2016-08-04 08:21] LABS: CALCIUM 10.5 mg/dl (8.5-10.1); CREATININE 2.1 mg/dl (0.60-1.40); MAGNESIUM 2.6 mg/dl (1.8-2.4); POTASSIUM 3.5 mmol/L (3.5-5.1)
[2016-08-04] MEDS: CARVEDILOL 6.25 MG TAB PO SCH ×2 (08:21→21:20)
[2016-08-04] MEDS: BOOST GLUCOSE CONTROL PO SCH ×3 (08:23→17:32)
[2016-08-04] MEDS: POLYETHYLENE (MIRALAX) 17 GM PACK PO SCH ×2 (08:23→21:36)
[2016-08-04] MEDS: NYSTATIN POWDER 15GM BTL EXT SCH (08:24)
[2016-08-04] MEDS: INSULIN GLARGINE SOLOSTAR 100 UNITS/ML 3 ML PEN SC SCH (08:40)
[2016-08-04] MEDS: INSULIN ASPART 100 UNITS/ML 3 ML PEN SC SCH ×4 (08:41→21:13)
--- NOTE | 2016-08-04 16:42 | Progress Note ---
Subjective Date of Service: Aug 04, 2016. Subjective pt feels less walker and examines with less rales, Cr did bump a bit, son at bedside updated Review of Systems Constitutional: No chills, No fever Respiratory: No cough, No shortness of breath, No sputum Cardiac: + edema, No chest pain Abdomen: No nausea, No pain Musculoskeletal: No muscle pain, No swelling Male : No dysuria, No urinary frequency Psychiatric: No anhedonism, No depression symptoms Objective Vital Signs Date Time Temp Pulse Resp B/P Pulse Ox O2 Delivery O2 Flow Rate FiO2 08/04/16 16:08 Room Air 08/04/16 15:38 88 16 95 Room Air 08/04/16 15:02 36.2 78 22 128/71 92 Room Air 08/04/16 11:24 91 16 94 Room Air 08/04/16 10:30 91 08/04/16 09:42 Room Air 08/04/16 07:50 74 16 99 Nasal Cannula 2.0 08/04/16 07:27 36.2 73 18 111/72 98 2.0 08/04/16 01:00 36.9 79 20 144/102 95 BiPAP 08/04/16 00:23 Room Air CPAP 08/03/16 19:52 84 16 86 Room Air Physical Exam General Appearance: WD/WN, + mild distress Neck: supple, no JVD Respiratory/Chest: chest non-tender, lungs clear, normal breath sounds Cardiovascular: regular rate, rhythm, + systolic murmur Abdomen: normal bowel sounds, non tender, soft Extremities: + pedal edema, + swelling Neurologic/Psychiatric: alert, oriented x 3 Laboratory Results Last 24 Hours Test 08/03/16 16:38 08/03/16 20:46 08/04/16 07:25 08/04/16 07:51 Bedside Glucose 121 mg/dl 224 mg/dl 173 mg/dl White Blood Count 8.95 K/uL Red Blood Count 4.00 M/uL Hemoglobin 12.2 g/dL Hematocrit 37.8 % Mean Corpuscular Volume 94.5 fL Mean Corpuscular Hemoglobin 30.5 pg Mean Corpuscular Hemoglobin Concent 32.3 g/dl RDW Standard Deviation 59.8 fL RDW Coefficient of Variation 17.3 % Platelet Count 227 K/uL Mean Platelet Volume 10.2 fL Sodium Level 134 mmol/L Potassium Level 3.5 mmol/L Chloride Level 91 mmol/L Carbon Dioxide Level 32 mmol/L Anion Gap 11.0 mmol/L Blood Urea Nitrogen 71 mg/dl Creatinine 2.10 mg/dl Est Creatinine Clear Calc Drug Dose 26.4 ml/min Estimated GFR () 31.8 Estimated GFR (Non- 27.5 BUN/Creatinine Ratio 34.0 Random Glucose 161 mg/dl Calcium Level 10.5 mg/dl Magnesium Level 2.6 mg/dl Test 08/04/16 11:43 Bedside Glucose 255 mg/dl Assessment and Plan Hypoxic Respiratory Failure, secondary to acute systolic heart failure, will change to po lasix tid 08/02, oral to 120 mg bid, did slip back a bit on 80 so resumed 120 on afternoon 08/03 mobilize secretions to ease effort, continue duonebs q6 hours FILIBERTO nocturnal bipap - appreciate palliative care input, family is interested in possible acute rehab Acute on Chronic Kidney Disease lasix with cont once daily metolazone, nephrology is following, hypokalemia KCL 40 meq bid 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
[2016-08-05] VITALS (7 sets, daily range): BP systolic 104–136; BP diastolic 55–88; PULSE 64–82; TEMP 35.7–36.6; O2SAT 86–96
[2016-08-05] MEDS: HEPARIN SOD 5000 UNIT/0.5 ML CARP SQ SCH ×3 (05:28→20:35)
[2016-08-05] MEDS: METOLAZONE 5 MG TAB PO SCH (05:33)
[2016-08-05] MEDS: ALBUT/IPRATROP 3MG/0.5MG NEB 3 ML VIAL INH SCH ×4 (06:59→19:10)
[2016-08-05] MEDS: CLOPIDOGREL BISULFATE 75 MG TAB PO SCH (08:16)
[2016-08-05] MEDS: FUROSEMIDE 40 MG TAB PO SCH ×3 (08:16→18:02)
[2016-08-05] MEDS: CARVEDILOL 6.25 MG TAB PO SCH ×2 (08:16→20:28)
[2016-08-05] MEDS: DOCUSATE SODIUM 100 MG CAP PO SCH ×2 (08:16→20:27)
[2016-08-05] MEDS: SERTRALINE HCL 50 MG TAB PO SCH (08:16)
[2016-08-05] MEDS: POLYETHYLENE (MIRALAX) 17 GM PACK PO SCH ×2 (08:16→20:28)
[2016-08-05] MEDS: ASPIRIN 81 MG ECTAB PO SCH (08:17)
[2016-08-05] MEDS: ISOSORBIDE MONONITRATE 60 MG TABCR PO SCH (08:17)
[2016-08-05] MEDS: POTASSIUM CHLORIDE 20 MEQ TABCR PO SCH ×2 (08:17→20:28)
[2016-08-05] MEDS: NYSTATIN POWDER 15GM BTL EXT SCH (08:18)
[2016-08-05] MEDS: FINASTERIDE 5 MG TAB PO SCH (08:18)
[2016-08-05] MEDS: INSULIN GLARGINE SOLOSTAR 100 UNITS/ML 3 ML PEN SC SCH (08:31)
[2016-08-05] MEDS: INSULIN ASPART 100 UNITS/ML 3 ML PEN SC SCH ×4 (08:31→20:34)
[2016-08-05] MEDS: BOOST GLUCOSE CONTROL PO SCH ×3 (08:32→18:02)
--- NOTE | 2016-08-05 09:38 | Nephrology Progress Note ---
Nephrology Progress Note Date of Service: Aug 05, 2016. Subjective 85 yo male with chf and ckd stage 4 who is open to dialysis if necessary. given aggressive iv diuretics and has diuresed appropriately. pt was complaining of left foot pain yesterday which is better. pt ate all of his breakfast. pt says he feels great. oob to chair. Objective Date Time Temp Pulse Resp B/P Pulse Ox O2 Delivery O2 Flow Rate FiO2 08/05/16 09:08 36.2 68 17 136/88 93 Room Air 08/05/16 06:59 72 16 93 Room Air 08/05/16 00:00 CPAP 08/04/16 23:46 36.6 80 20 128/61 95 BiPAP 08/04/16 20:00 Room Air 08/04/16 16:08 Room Air 08/04/16 15:38 88 16 95 Room Air 08/04/16 15:02 36.2 78 22 128/71 92 Room Air 08/04/16 11:24 91 16 94 Room Air 08/04/16 10:30 91 08/04/16 09:42 Room Air Physical Exam: General-aaox3, obese Eyes-no scleral icterus ENT-mmm Neck-supple Lungs-mild rales Heart-rrr Abdomen-bs+ s/nt/nd Extremities-no edema Neuro-nonfocal Current Inpatient Medications Medications (Trade) Dose Ordered Sig/Vijay Route Start Time Stop Time Status Last Admin Dose Admin Acetaminophen (Tylenol Tab) 650 mg Q4H PRN PO 07/12/16 04:00 08/11/16 03:59 07/15/16 16:02 650 MG Al Hydrox/Mg Hydrox/Simethicone (Maalox Max Susp) 15 ml Q4H PRN PO 07/12/16 04:00 08/11/16 03:59 Magnesium Hydroxide (Milk Of Magnesia Susp) 30 ml Q12H PRN PO 07/12/16 04:00 08/11/16 03:59 07/25/16 09:22 30 ML Ondansetron HCl (Zofran Inj) 4 mg Q6H PRN IV 07/12/16 04:00 08/11/16 03:59 Nitroglycerin (Nitrostat Tab) 0.4 mg UD PRN SL 07/12/16 04:00 08/11/16 03:59 Aspirin (Ecotrin Tab) 81 mg DAILY PO 07/12/16 09:00 08/11/16 08:59 08/05/16 08:17 81 MG Clopidogrel Bisulfate (plAVix TAB) 75 mg DAILY PO 07/12/16 09:00 08/11/16 08:59 08/05/16 08:16 75 MG Docusate Sodium (coLACE CAP) 100 mg BID PO 07/12/16 09:00 08/11/16 08:59 08/05/16 08:16 100 MG Finasteride (Proscar Tab) 5 mg DAILY PO 07/12/16 09:00 08/11/16 08:59 08/05/16 08:18 5 MG Insulin Aspart (novoLOG ASPART) SLIDING SCALE If C... ACHS SC 07/12/16 11:00 08/11/16 10:59 08/05/16 08:31 12 UNITS Glucose (Glucose 40% Gel) 15-30 GRAMS 15 GRAMS... UD PRN PO 07/12/16 08:45 08/11/16 08:44 Glucose (Glucose Chew Tab) 4-8 Tablets 4 Tabl... UD PRN PO 07/12/16 08:45 08/11/16 08:44 Dextrose (Dextrose 50% 50ML Syringe) 25-50ML OF 50% DW IV FOR... UD PRN IV 07/12/16 08:45 08/11/16 08:44 Glucagon (Glucagon Inj) 1 mg UD PRN SQ 07/12/16 08:45 08/11/16 08:44 Nystatin (Mycostatin Powder) 1 appln DAILY EXT 07/13/16 09:00 08/12/16 08:59 08/05/16 08:18 1 APPLN Enteral Nutritional Formula (Boost Glucose Control) 0.5 can TIDM PO 07/13/16 07:15 08/12/16 07:14 08/05/16 08:32 0.5 CAN Heparin Sodium (Porcine) (Heparin Sq 5000 Unit/0.5ml) 5,000 unit Q8 SQ 07/16/16 14:00 08/15/16 13:59 08/05/16 05:28 5,000 UNIT Sertraline HCl (Zoloft Tab) 50 mg QAM PO 07/23/16 08:00 08/22/16 07:59 08/05/16 08:16 50 MG Metolazone (Zaroxolyn Tab) 5 mg DAILY@0530 PO 07/26/16 05:30 08/25/16 05:29 08/05/16 05:33 5 MG Polyethylene (Miralax Powder Packet) 17 gm BID PO 07/26/16 09:30 08/25/16 09:29 08/05/16 08:16 17 GM Albuterol/ Ipratropium (Duoneb) 3 ml Q4RWA INH 07/26/16 16:00 08/25/16 15:59 08/05/16 06:59 3 ML Isosorbide Mononitrate (Imdur Ext Rel Tab) 60 mg QAM PO 07/27/16 08:00 08/26/16 07:59 08/05/16 08:17 60 MG Carvedilol (Coreg Tab) 3.125 mg BID PO 07/27/16 20:00 08/26/16 19:59 08/05/16 08:16 3.125 MG Sodium Chloride ([place] Nasal [place]) 2 sprays Q1HWA PRN NA 07/28/16 11:15 08/27/16 11:14 07/28/16 12:19 2 SPRAYS Potassium Chloride (Klor-Con Tab) 40 meq BID PO 07/30/16 08:00 08/29/16 07:59 08/05/16 08:17 40 MEQ Insulin Glargine (Lantus Solostar Pen) SEE PROTOCOL TEXT DAILY SC 07/30/16 08:00 08/29/16 07:59 08/05/16 08:31 13 UNIT Furosemide (Lasix Tab) 120 mg TIDM PO 08/04/16 08:00 09/03/16 07:59 08/05/16 08:16 120 MG Colchicine (Colchicine Tab) 0.3 mg TODAY@1000 ONCE PO 08/05/16 10:00 08/05/16 10:01 Last 24 Hours Test 08/04/16 11:43 08/04/16 16:36 08/04/16 20:20 08/05/16 08:59 Bedside Glucose 255 mg/dl 160 mg/dl 183 mg/dl Assessment & Plan CKD stage 4-creatinine stable at 1.7 but yesterday did trend up to 2.1. perhaps may be at appropriate diuretic weight. currently on lasix 120 po tid and metolazone 5mg a day. pt is down 8 kilos. if creatinine continues to trend up- would recommend lasix 80 tid and metolazone 5. hypokalemia-k of 3.5 at last check on k 40meq po bid.
[2016-08-05 09:52] LABS: BLOOD UREA NITROGEN 73 mg/dl (7-18); BUN/CREATININE RATIO 36.6 (10-20); CALCIUM 10.7 mg/dl (8.5-10.1); CARBON DIOXIDE 32 mmol/L (21-32); CHLORIDE 89 mmol/L (98-107); GLUCOSE 176 mg/dl (70-99); SODIUM 133 mmol/L (136-145); URIC ACID 11.8 mg/dl (2.6-7.2)
[2016-08-05] MEDS ORDERED: COLCHICINE 0.6 MG TAB PO ONE (10:00)
--- NOTE | 2016-08-05 15:51 | Progress Note ---
Subjective Date of Service: Aug 05, 2016. Subjective this pt is having left lateral foot pain, has history of gout, less shortness of breath Review of Systems Constitutional: No chills, No fatigue, No fever, No weakness Cardiac: No chest pain, No edema Abdomen: No diarrhea, No nausea, No pain, No vomiting Musculoskeletal: + joint pain, + muscle pain Objective Vital Signs Date Time Temp Pulse Resp B/P Pulse Ox O2 Delivery O2 Flow Rate FiO2 08/05/16 15:37 35.7 79 20 112/69 96 Room Air 08/05/16 15:10 82 16 93 BiPAP/CPAP 21 08/05/16 11:06 64 16 95 Room Air 08/05/16 09:08 36.2 68 17 136/88 93 Room Air 08/05/16 08:10 Room Air 08/05/16 06:59 72 16 93 Room Air 08/05/16 00:00 CPAP 08/04/16 23:46 36.6 80 20 128/61 95 BiPAP 08/04/16 20:00 Room Air 08/04/16 16:08 Room Air Physical Exam General Appearance: WD/WN, + mild distress Neck: supple, no JVD Respiratory/Chest: chest non-tender, lungs clear, normal breath sounds Cardiovascular: regular rate, rhythm, no murmur, + JVD Abdomen: normal bowel sounds, non tender, soft Extremities: + pertinent finding (lateral joint pain pip 5th toe left foot) Laboratory Results Last 24 Hours Test 08/04/16 16:36 08/04/16 20:20 08/05/16 07:51 08/05/16 08:59 Bedside Glucose 160 mg/dl 183 mg/dl 152 mg/dl Sodium Level 133 mmol/L Potassium Level mmol/L Chloride Level 89 mmol/L Carbon Dioxide Level 32 mmol/L Anion Gap 12.0 mmol/L Blood Urea Nitrogen 73 mg/dl Creatinine 2.00 mg/dl Est Creatinine Clear Calc Drug Dose 27.8 ml/min Estimated GFR () 33.8 Estimated GFR (Non- 29.1 BUN/Creatinine Ratio 36.6 Random Glucose 176 mg/dl Uric Acid 11.8 mg/dl Calcium Level 10.7 mg/dl Test 08/05/16 10:22 08/05/16 12:02 Potassium Level 3.1 mmol/L Bedside Glucose 253 mg/dl Assessment and Plan Hypoxic Respiratory Failure, secondary to acute systolic heart failure, lasix 120 mg bid, did slip back a bit on 80 so resumed 120 on afternoon 08/03 mobilize secretions to ease effort, continue duonebs q6 hours FILIBERTO nocturnal bipap - appreciate palliative care input, family is interested in possible acute rehab Acute on Chronic Kidney Disease lasix with cont once daily metolazone, nephrology is following, hypokalemia KCL 40 meq bid one extra dose 08/05 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
[2016-08-06] VITALS (7 sets, daily range): BP systolic 119–146; BP diastolic 73–78; PULSE 60–81; TEMP 36.2–36.6; O2SAT 92–96
[2016-08-06] MEDS: METOLAZONE 5 MG TAB PO SCH (05:33)
[2016-08-06] MEDS: HEPARIN SOD 5000 UNIT/0.5 ML CARP SQ SCH ×3 (05:42→20:09)
[2016-08-06] MEDS: ALBUT/IPRATROP 3MG/0.5MG NEB 3 ML VIAL INH SCH ×4 (07:33→19:07)
[2016-08-06] MEDS: NYSTATIN POWDER 15GM BTL EXT SCH (08:28)
[2016-08-06] MEDS: SERTRALINE HCL 50 MG TAB PO SCH (08:29)
[2016-08-06] MEDS: ASPIRIN 81 MG ECTAB PO SCH (08:29)
[2016-08-06] MEDS: POLYETHYLENE (MIRALAX) 17 GM PACK PO SCH ×2 (08:29→19:31)
[2016-08-06] MEDS: FUROSEMIDE 40 MG TAB PO SCH ×3 (08:29→17:38)
[2016-08-06] MEDS: DOCUSATE SODIUM 100 MG CAP PO SCH ×2 (08:30→19:32)
[2016-08-06] MEDS: CARVEDILOL 6.25 MG TAB PO SCH ×2 (08:30→19:32)
[2016-08-06] MEDS: CLOPIDOGREL BISULFATE 75 MG TAB PO SCH (08:30)
[2016-08-06] MEDS: POTASSIUM CHLORIDE 20 MEQ TABCR PO SCH ×2 (08:31→19:32)
[2016-08-06] MEDS: FINASTERIDE 5 MG TAB PO SCH (08:31)
[2016-08-06] MEDS: ISOSORBIDE MONONITRATE 60 MG TABCR PO SCH (08:31)
[2016-08-06] MEDS: BOOST GLUCOSE CONTROL PO SCH ×3 (08:32→17:38)
[2016-08-06] MEDS: INSULIN ASPART 100 UNITS/ML 3 ML PEN SC SCH ×4 (08:44→20:08)
[2016-08-06] MEDS: INSULIN GLARGINE SOLOSTAR 100 UNITS/ML 3 ML PEN SC SCH (08:44)
[2016-08-06 09:39] LABS: BUN/CREATININE RATIO 40.1 (10-20); CALCIUM 11.3 mg/dl (8.5-10.1); CREATININE 1.9 mg/dl (0.60-1.40); POTASSIUM 3.3 mmol/L (3.5-5.1)
--- NOTE | 2016-08-06 19:08 | Progress Note ---
Subjective Date of Service: Aug 06, 2016. Subjective pt states his foot feels better, still not short of breath awaiting placement Review of Systems Constitutional: No chills, No fever Respiratory: + dyspnea on exertion, No cough, No sputum Cardiac: No chest pain, No orthopnea Abdomen: No nausea, No pain, No vomiting Psychiatric: No anhedonism, No depression symptoms Objective Vital Signs Date Time Temp Pulse Resp B/P Pulse Ox O2 Delivery O2 Flow Rate FiO2 08/06/16 07:53 36.6 74 16 146/78 92 08/06/16 07:33 60 16 96 Room Air 08/06/16 00:00 BiPAP 2.0 08/05/16 23:35 36.6 82 18 104/55 94 Room Air 08/05/16 19:11 81 16 86 Room Air 08/05/16 16:00 Room Air 08/05/16 15:37 35.7 79 20 112/69 96 Room Air 08/05/16 15:10 82 16 93 BiPAP/CPAP 21 08/05/16 11:06 64 16 95 Room Air 08/05/16 09:08 36.2 68 17 136/88 93 Room Air Physical Exam General Appearance: WD/WN, + mild distress Neck: supple, no JVD Respiratory/Chest: chest non-tender, lungs clear, normal breath sounds Cardiovascular: regular rate, rhythm, no murmur Abdomen: normal bowel sounds, non tender, soft Extremities: no pedal edema, no calf tenderness Laboratory Results Last 24 Hours Test 08/05/16 08:59 08/05/16 10:22 08/05/16 12:02 08/05/16 16:12 Sodium Level 133 mmol/L Potassium Level mmol/L 3.1 mmol/L Chloride Level 89 mmol/L Carbon Dioxide Level 32 mmol/L Anion Gap 12.0 mmol/L Blood Urea Nitrogen 73 mg/dl Creatinine 2.00 mg/dl Est Creatinine Clear Calc Drug Dose 27.8 ml/min Estimated GFR () 33.8 Estimated GFR (Non- 29.1 BUN/Creatinine Ratio 36.6 Random Glucose 176 mg/dl Uric Acid 11.8 mg/dl Calcium Level 10.7 mg/dl Bedside Glucose 253 mg/dl 183 mg/dl Test 08/05/16 20:19 08/06/16 08:09 Bedside Glucose 242 mg/dl Assessment and Plan Hypoxic Respiratory Failure, secondary to acute systolic heart failure, lasix 120 mg bid, did slip back a bit on 80 so resumed 120 on afternoon 08/03 mobilize secretions to ease effort, continue duonebs q6 hours, replete K FILIBERTO nocturnal bipap - appreciate palliative care input, family is interested in possible acute rehab Acute on Chronic Kidney Disease lasix with cont once daily metolazone, nephrology is following, hypokalemia KCL 40 meq bid one extra dose 08/05 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
[2016-08-07] VITALS (7 sets, daily range): BP systolic 119–150; BP diastolic 62–66; PULSE 66–92; TEMP 36.3–36.6; O2SAT 92–99
[2016-08-07] MEDS: METOLAZONE 5 MG TAB PO SCH (05:29)
[2016-08-07] MEDS: HEPARIN SOD 5000 UNIT/0.5 ML CARP SQ SCH ×3 (05:31→20:15)
[2016-08-07] MEDS: ALBUT/IPRATROP 3MG/0.5MG NEB 3 ML VIAL INH SCH ×4 (07:39→19:02)
[2016-08-07] MEDS: NYSTATIN POWDER 15GM BTL EXT SCH (07:52)
[2016-08-07] MEDS: FINASTERIDE 5 MG TAB PO SCH (07:53)
[2016-08-07] MEDS: CARVEDILOL 6.25 MG TAB PO SCH ×2 (07:54→18:55)
[2016-08-07] MEDS: POTASSIUM CHLORIDE 20 MEQ TABCR PO SCH ×3 (07:54→18:55)
[2016-08-07] MEDS: ASPIRIN 81 MG ECTAB PO SCH (07:54)
[2016-08-07] MEDS: CLOPIDOGREL BISULFATE 75 MG TAB PO SCH (07:55)
[2016-08-07] MEDS: BOOST GLUCOSE CONTROL PO SCH ×3 (07:55→17:28)
[2016-08-07] MEDS: ISOSORBIDE MONONITRATE 60 MG TABCR PO SCH (07:55)
[2016-08-07] MEDS: DOCUSATE SODIUM 100 MG CAP PO SCH ×2 (07:55→18:55)
[2016-08-07] MEDS: POLYETHYLENE (MIRALAX) 17 GM PACK PO SCH ×2 (07:55→18:56)
[2016-08-07] MEDS: SERTRALINE HCL 50 MG TAB PO SCH (07:55)
[2016-08-07] MEDS: FUROSEMIDE 40 MG TAB PO SCH ×3 (07:56→17:28)
[2016-08-07] MEDS: INSULIN ASPART 100 UNITS/ML 3 ML PEN SC SCH ×4 (08:41→20:15)
[2016-08-07] MEDS: INSULIN GLARGINE SOLOSTAR 100 UNITS/ML 3 ML PEN SC SCH (08:41)
--- NOTE | 2016-08-07 13:54 | Progress Note ---
Subjective Date of Service: Aug 07, 2016. Subjective no new changes overnight, dry weight seems to be between 99-100 kg, gouty foot pain resolved Review of Systems Constitutional: + weakness, No chills, No fever Respiratory: No cough, No dyspnea on exertion, No shortness of breath, No sputum Cardiac: No chest pain, No edema Abdomen: No nausea, No pain, No vomiting Male : No dysuria, No urinary frequency Objective Vital Signs Date Time Temp Pulse Resp B/P Pulse Ox O2 Delivery O2 Flow Rate FiO2 08/07/16 11:17 82 16 93 Room Air 08/07/16 08:00 Room Air 08/07/16 07:39 67 16 95 Room Air 08/07/16 06:57 36.6 66 18 124/65 97 Nasal Cannula 2.0 08/07/16 00:00 BiPAP 08/06/16 23:36 36.2 74 16 119/77 95 BiPAP 08/06/16 19:07 74 16 95 Room Air 08/06/16 16:00 Room Air 08/06/16 15:46 36.3 68 16 124/73 93 Room Air 08/06/16 15:16 81 16 96 Room Air Physical Exam General Appearance: WD/WN, + mild distress Neck: supple, no JVD Respiratory/Chest: chest non-tender, no accessory muscle use Cardiovascular: regular rate, rhythm, + systolic murmur Abdomen: normal bowel sounds, non tender, soft Extremities: no pedal edema, no calf tenderness Neurologic/Psychiatric: alert, oriented x 3 Laboratory Results Last 24 Hours Test 08/06/16 16:42 08/06/16 20:00 08/07/16 07:48 08/07/16 11:30 Bedside Glucose 173 mg/dl 258 mg/dl 172 mg/dl 294 mg/dl Assessment and Plan Hypoxic Respiratory Failure, secondary to acute systolic heart failure, lasix 120 mg bid, did slip back a bit on 80 so resumed 120 on afternoon 08/03 mobilize secretions to ease effort, continue duonebs q6 hours, replete K FILIBERTO nocturnal bipap - appreciate palliative care input, family is interested in possible acute rehab Acute on Chronic Kidney Disease lasix with cont once daily metolazone, nephrology is following, hypokalemia KCL 40 meq bid one extra dose 08/05 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 stay due to: multiple IV medications needed
[2016-08-07 16:27] LABS: BUN/CREATININE RATIO 39.3 (10-20); POTASSIUM 3.4 mmol/L (3.5-5.1)
[2016-08-08] MEDS: METOLAZONE 5 MG TAB PO SCH (05:18)
[2016-08-08] MEDS: HEPARIN SOD 5000 UNIT/0.5 ML CARP SQ SCH ×3 (05:20→21:40)
[2016-08-08] MEDS: ALBUT/IPRATROP 3MG/0.5MG NEB 3 ML VIAL INH SCH ×4 (07:11→20:23)
[2016-08-08 07:22] VITALS: BP 93/57; PULSE 74; TEMP 36.3; O2SAT 95
[2016-08-08] MEDS: BOOST GLUCOSE CONTROL PO SCH ×3 (08:00→18:47)
[2016-08-08] MEDS: INSULIN GLARGINE SOLOSTAR 100 UNITS/ML 3 ML PEN SC SCH (08:47)
[2016-08-08] MEDS: INSULIN ASPART 100 UNITS/ML 3 ML PEN SC SCH ×4 (08:47→21:39)
[2016-08-08] MEDS: DOCUSATE SODIUM 100 MG CAP PO SCH ×2 (08:48→21:37)
[2016-08-08] MEDS: ASPIRIN 81 MG ECTAB PO SCH (08:49)
[2016-08-08] MEDS: POTASSIUM CHLORIDE 20 MEQ TABCR PO SCH ×3 (08:49→21:36)
[2016-08-08] MEDS: ISOSORBIDE MONONITRATE 60 MG TABCR PO SCH (08:49)
[2016-08-08] MEDS: CARVEDILOL 6.25 MG TAB PO SCH ×2 (08:49→21:37)
[2016-08-08] MEDS: SERTRALINE HCL 50 MG TAB PO SCH (08:50)
[2016-08-08] MEDS: POLYETHYLENE (MIRALAX) 17 GM PACK PO SCH ×2 (08:50→21:36)
[2016-08-08] MEDS: FINASTERIDE 5 MG TAB PO SCH (08:50)
[2016-08-08] MEDS: CLOPIDOGREL BISULFATE 75 MG TAB PO SCH (08:50)
[2016-08-08] MEDS: FUROSEMIDE 40 MG TAB PO SCH ×3 (08:50→18:43)
[2016-08-08] MEDS: NYSTATIN POWDER 15GM BTL EXT SCH (08:51)
[2016-08-08 10:45] VITALS: PULSE 78; O2SAT 94
[2016-08-08] MEDS ORDERED: INSDGIPEN SC (11:12)
[2016-08-08] MEDS ORDERED: CLC100 PO (11:12)
[2016-08-08] MEDS ORDERED: IMDSR60 PO (11:12)
[2016-08-08] MEDS ORDERED: ZRX5 PO (11:12)
[2016-08-08] MEDS ORDERED: CLOP1TAB15 PO (11:12)
[2016-08-08] MEDS ORDERED: MCRK20 PO (11:12)
[2016-08-08] MEDS ORDERED: NVLGIPEN SC (11:12)
[2016-08-08] MEDS ORDERED: IPRASOL4 INH (11:12)
[2016-08-08] MEDS ORDERED: NUTR-7 PO (11:12)
[2016-08-08] MEDS ORDERED: NYSP EXT (11:12)
[2016-08-08] MEDS ORDERED: MRLP17 PO (11:12)
[2016-08-08] MEDS ORDERED: CRG625 PO (11:12)
[2016-08-08] MEDS ORDERED: ZLF50 PO (11:12)
[2016-08-08] MEDS ORDERED: LSX40 PO (11:12)
[2016-08-08] MEDS ORDERED: SALI0.6510 (11:12)
[2016-08-08 14:48] VITALS: BP 110/73; PULSE 85; TEMP 36.5; O2SAT 96
[2016-08-08 15:00] VITALS: PULSE 84; O2SAT 93
[2016-08-08 15:14] VITALS: BP 130/77; PULSE 87; TEMP 36.5; O2SAT 95
[2016-08-08 20:23] VITALS: PULSE 81; O2SAT 98
--- NOTE | 2016-08-08 22:53 | Hospitalist Progress Note ---
Hospitalist Progress Note Date of Service Aug 08, 2016. Subjective Pt evaluation today including: conversation w/ patient, physical exam, chart review, lab review, review of studies, review of inpatient medication list PO Intake: [place] po Pt feeling very well today, ready for discharge, no more pain in foot from gout , no SOB. All Other Systems: Reviewed and Negative Objective Vital Signs Date Time Temp Pulse Resp B/P Pulse Ox O2 Delivery O2 Flow Rate FiO2 08/08/16 20:23 81 18 98 BiPAP/CPAP 2.0 08/08/16 16:00 Room Air 08/08/16 15:14 36.5 87 20 130/77 95 Room Air 08/08/16 15:00 84 16 93 Room Air 08/08/16 14:48 36.5 85 20 110/73 96 08/08/16 10:45 78 16 94 Room Air 08/08/16 10:18 Room Air 08/08/16 07:22 36.3 74 16 93/57 95 Room Air 08/07/16 23:59 BiPAP 08/07/16 23:08 36.3 74 18 150/62 99 BiPAP Physical Exam General Appearance: WD/WN, no apparent distress Eyes: normal inspection, sclerae normal Neck: trachea midline Respiratory/Chest: no respiratory distress, no accessory muscle use, + crackles (mild at bases bilat) Cardiovascular: regular rate, rhythm, no edema, + systolic murmur (2/6 FLAKO at RUSB) Abdomen: normal bowel sounds, non tender, soft Extremities: normal inspection, no pedal edema, no calf tenderness Neurologic/Psychiatric: alert, normal mood/affect Skin: normal color, warm/dry, no rash Laboratory Results Last 24 Hours Test 08/08/16 07:44 08/08/16 11:40 08/08/16 16:35 08/08/16 19:59 Bedside Glucose 226 mg/dl 237 mg/dl 176 mg/dl 223 mg/dl Assessment and Plan Acute Hypoxic Respiratory Failure, secondary to acute systolic heart failure, bilateral pleural effusions, CHF EF 40-45%, CAD, Mod /AI ECHO: * Left ventricular systolic function is mildly reduced. * Ejection Fraction = 40-45%. * There is a moderate to large sized posterior, inferior, and lateral wall motion abnormality with severe hypokinesis to akinesis of the segments. * The aortic valve is severely calcified. * Doppler and 2D imaging of the aortic valve are discordant. Moderate aortic stenosis is present. * Moderate aortic regurgitation. * There is mild mitral regurgitation. * There is mild to moderate tricuspid regurgitation. 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
[2016-08-09 00:01] VITALS: BP 156/66; PULSE 77; TEMP 36.2; O2SAT 97
[2016-08-09] MEDS: METOLAZONE 5 MG TAB PO SCH (05:56)
[2016-08-09] MEDS: HEPARIN SOD 5000 UNIT/0.5 ML CARP SQ SCH (05:58)
[2016-08-09 07:15] VITALS: PULSE 81; O2SAT 98
[2016-08-09] MEDS: ALBUT/IPRATROP 3MG/0.5MG NEB 3 ML VIAL INH SCH (07:15)
[2016-08-09 07:37] VITALS: BP 147/72; PULSE 85; TEMP 36.4; O2SAT 98
[2016-08-09 08:25] LABS: BASO % 1.5 %; BASO ABS # 0.15 K/uL (0-0.2); COMPLETE YES; EOS % 7.6 %; HEMATOCRIT 38.2 % (42-52); LYMPH % 25.1 %; MEAN CELL VOLUME 92.3 fL (80-100); MEAN CORPUSCULAR HEMOGLOBIN 31.2 pg (25-34); MEAN CORPUSCULAR HGB CONC 33.8 g/dl (32-36); MEAN PLATELET VOLUME 9.8 fL (7.4-10.4); MONO % 12.8 %; PLATELET COUNT 213 K/uL (130-400); RED BLOOD COUNT 4.14 M/uL (4.7-6.1); WHITE BLOOD COUNT 10.34 K/uL (4.8-10.8)
[2016-08-09] MEDS: NYSTATIN POWDER 15GM BTL EXT SCH (08:29)
[2016-08-09] MEDS: BOOST GLUCOSE CONTROL PO SCH (08:30)
[2016-08-09] MEDS: DOCUSATE SODIUM 100 MG CAP PO SCH (08:30)
[2016-08-09] MEDS: CARVEDILOL 6.25 MG TAB PO SCH (08:31)
[2016-08-09] MEDS: ASPIRIN 81 MG ECTAB PO SCH (08:31)
[2016-08-09] MEDS: ISOSORBIDE MONONITRATE 60 MG TABCR PO SCH (08:31)
[2016-08-09] MEDS: FUROSEMIDE 40 MG TAB PO SCH (08:32)
[2016-08-09] MEDS: POTASSIUM CHLORIDE 20 MEQ TABCR PO SCH (08:32)
[2016-08-09] MEDS: FINASTERIDE 5 MG TAB PO SCH (08:33)
[2016-08-09] MEDS: CLOPIDOGREL BISULFATE 75 MG TAB PO SCH (08:33)
[2016-08-09] MEDS: SERTRALINE HCL 50 MG TAB PO SCH (08:33)
[2016-08-09] MEDS: INSULIN ASPART 100 UNITS/ML 3 ML PEN SC SCH (08:36)
[2016-08-09] MEDS: INSULIN GLARGINE SOLOSTAR 100 UNITS/ML 3 ML PEN SC SCH (08:37)
[2016-08-09 08:57] LABS: BUN/CREATININE RATIO 38.8 (10-20); CALCIUM 11.4 mg/dl (8.5-10.1); MAGNESIUM 2.5 mg/dl (1.8-2.4); POTASSIUM 3.5 mmol/L (3.5-5.1)
--- NOTE | 2016-08-09 09:12 | Nephrology Progress Note ---
Nephrology Progress Note Date of Service: Aug 09, 2016. Subjective 85 yo male with chf and ckd stage 4 who is open to dialysis if necessary. given aggressive iv diuretics and has diuresed appropriately. pt with swelling in left leg. breathing well. slept well last night. no other complaints. pt going to [facility] for rehab. Objective Date Time Temp Pulse Resp B/P Pulse Ox O2 Delivery O2 Flow Rate FiO2 08/09/16 07:37 36.4 85 18 147/72 98 Room Air 08/09/16 07:15 81 18 98 Nasal Cannula 2.0 08/09/16 00:01 36.2 77 20 156/66 97 CPAP 4.0 08/08/16 23:59 Room Air 08/08/16 20:23 81 18 98 BiPAP/CPAP 2.0 08/08/16 16:00 Room Air 08/08/16 15:14 36.5 87 20 130/77 95 Room Air 08/08/16 15:00 84 16 93 Room Air 08/08/16 14:48 36.5 85 20 110/73 96 08/08/16 10:45 78 16 94 Room Air 08/08/16 10:18 Room Air Physical Exam: General-aaox3, obese Eyes-no scleral icterus ENT-mmm Neck-supple Lungs-mild rales on left base Heart-regular Abdomen-bs+ s/nt/nd Extremities-very mild edema Neuro-nonfocal Current Inpatient Medications Medications (Trade) Dose Ordered Sig/Vijay Route Start Time Stop Time Status Last Admin Dose Admin Acetaminophen (Tylenol Tab) 650 mg Q4H PRN PO 07/12/16 04:00 08/11/16 03:59 07/15/16 16:02 650 MG Al Hydrox/Mg Hydrox/Simethicone (Maalox Max Susp) 15 ml Q4H PRN PO 07/12/16 04:00 08/11/16 03:59 Magnesium Hydroxide (Milk Of Magnesia Susp) 30 ml Q12H PRN PO 07/12/16 04:00 08/11/16 03:59 07/25/16 09:22 30 ML Ondansetron HCl (Zofran Inj) 4 mg Q6H PRN IV 07/12/16 04:00 08/11/16 03:59 Nitroglycerin (Nitrostat Tab) 0.4 mg UD PRN SL 07/12/16 04:00 08/11/16 03:59 08/08/16 15:21 0.4 MG Aspirin (Ecotrin Tab) 81 mg DAILY PO 07/12/16 09:00 08/11/16 08:59 08/09/16 08:31 81 MG Clopidogrel Bisulfate (plAVix TAB) 75 mg DAILY PO 07/12/16 09:00 08/11/16 08:59 08/09/16 08:33 75 MG Docusate Sodium (coLACE CAP) 100 mg BID PO 07/12/16 09:00 08/11/16 08:59 08/09/16 08:30 100 MG Finasteride (Proscar Tab) 5 mg DAILY PO 07/12/16 09:00 08/11/16 08:59 08/09/16 08:33 5 MG Insulin Aspart (novoLOG ASPART) SLIDING SCALE If C... ACHS SC 07/12/16 11:00 08/11/16 10:59 08/09/16 08:36 14 UNITS Glucose (Glucose 40% Gel) 15-30 GRAMS 15 GRAMS... UD PRN PO 07/12/16 08:45 08/11/16 08:44 Glucose (Glucose Chew Tab) 4-8 Tablets 4 Tabl... UD PRN PO 07/12/16 08:45 08/11/16 08:44 Dextrose (Dextrose 50% 50ML Syringe) 25-50ML OF 50% DW IV FOR... UD PRN IV 07/12/16 08:45 08/11/16 08:44 Glucagon (Glucagon Inj) 1 mg UD PRN SQ 07/12/16 08:45 08/11/16 08:44 Nystatin (Mycostatin Powder) 1 appln DAILY EXT 07/13/16 09:00 08/12/16 08:59 08/09/16 08:29 1 APPLN Enteral Nutritional Formula (Boost Glucose Control) 0.5 can TIDM PO 07/13/16 07:15 08/12/16 07:14 08/09/16 08:30 0.5 CAN Heparin Sodium (Porcine) (Heparin Sq 5000 Unit/0.5ml) 5,000 unit Q8 SQ 07/16/16 14:00 08/15/16 13:59 08/09/16 05:58 5,000 UNIT Sertraline HCl (Zoloft Tab) 50 mg QAM PO 07/23/16 08:00 08/22/16 07:59 08/09/16 08:33 50 MG Metolazone (Zaroxolyn Tab) 5 mg DAILY@0530 PO 07/26/16 05:30 08/25/16 05:29 08/09/16 05:56 5 MG Polyethylene (Miralax Powder Packet) 17 gm BID PO 07/26/16 09:30 08/25/16 09:29 08/08/16 21:36 17 GM Albuterol/ Ipratropium (Duoneb) 3 ml Q4RWA INH 07/26/16 16:00 08/25/16 15:59 08/09/16 07:15 3 ML Isosorbide Mononitrate (Imdur Ext Rel Tab) 60 mg QAM PO 07/27/16 08:00 08/26/16 07:59 08/09/16 08:31 60 MG Carvedilol (Coreg Tab) 3.125 mg BID PO 07/27/16 20:00 08/26/16 19:59 08/09/16 08:31 3.125 MG Sodium Chloride ([place] Nasal [place]) 2 sprays Q1HWA PRN NA 07/28/16 11:15 08/27/16 11:14 07/28/16 12:19 2 SPRAYS Insulin Glargine (Lantus Solostar Pen) SEE PROTOCOL TEXT DAILY SC 07/30/16 08:00 08/29/16 07:59 08/09/16 08:37 13 UNIT Furosemide (Lasix Tab) 120 mg TIDM PO 08/04/16 08:00 09/03/16 07:59 08/09/16 08:32 120 MG Potassium Chloride (Klor-Con Tab) 40 meq TID PO 08/06/16 20:00 09/05/16 19:59 08/09/16 08:32 40 MEQ Last 24 Hours Test 08/08/16 11:40 08/08/16 16:35 08/08/16 19:59 08/08/16 20:15 Bedside Glucose 237 mg/dl 176 mg/dl 223 mg/dl 207 mg/dl Test 08/09/16 07:54 08/09/16 08:15 Bedside Glucose 190 mg/dl White Blood Count 10.34 K/uL Red Blood Count 4.14 M/uL Hemoglobin 12.9 g/dL Hematocrit 38.2 % Mean Corpuscular Volume 92.3 fL Mean Corpuscular Hemoglobin 31.2 pg Mean Corpuscular Hemoglobin Concent 33.8 g/dl Platelet Count 213 K/uL Mean Platelet Volume 9.8 fL Neutrophils (%) (Auto) 52.0 % Lymphocytes (%) (Auto) 25.1 % Monocytes (%) (Auto) 12.8 % Eosinophils (%) (Auto) 7.6 % Basophils (%) (Auto) 1.5 % Neutrophils # (Auto) 5.38 K/uL Lymphocytes # (Auto) 2.60 K/uL Monocytes # (Auto) 1.32 K/uL Eosinophils # (Auto) 0.79 K/uL Basophils # (Auto) 0.15 K/uL RDW Standard Deviation 56.5 fL RDW Coefficient of Variation 16.6 % Immature Granulocyte % (Auto) 1.0 % Immature Granulocyte # (Auto) 0.10 K/uL Sodium Level 134 mmol/L Potassium Level 3.5 mmol/L Chloride Level 89 mmol/L Carbon Dioxide Level 33 mmol/L Anion Gap 12.0 mmol/L Blood Urea Nitrogen 78 mg/dl Creatinine 2.00 mg/dl Est Creatinine Clear Calc Drug Dose 27.7 ml/min Estimated GFR () 33.8 Estimated GFR (Non- 29.1 BUN/Creatinine Ratio 38.8 Random Glucose 178 mg/dl Calcium Level 11.4 mg/dl Magnesium Level 2.5 mg/dl Assessment & Plan CKD stage 4-creatinine stable at 2 on current diuretics. volume status is optimized. no changes to diuretics. will follow weights as an outpt and try to keep at current weight as tolerated. hypercalcemia-feel calcium levels may be elevated from intravascular volume depletion. not on any calcium supplements. would like to follow calcium levels as an outpt. pth was appropriately suppressed. ionized calcium was normal. weight likely to go up at fdc and calcium levels shoudl start to improve.
[2016-08-09 09:32] VITALS: BP 147/72; PULSE 85; TEMP 36.4; O2SAT 98
--- NOTE | 2016-08-09 10:07 | Discharge Instructions ---
Discharge Instructions Admission Reason for Admission: CHF Exacerbation, Acute hypoxemic respiratory failure Discharge Discharge Diagnosis / Problem: CHF Exacerbation, Acute hypoxemic respiratory failure Discharge Goals Goal(s): Improve disease control, Therapeutic intervention Activity Recommendations Activity Level: Assistance Required Therapies: Physical Therapy, Occupational Therapy . Additional Information Patient informed of condition: Yes Advance Directives: No DNR: Yes Level of Care: Skilled Communicable Disease: No Prognosis: Stable Oxygen at (LPM): BiPAP qhs Adams Catheter: No Instructions / Follow-Up Instructions / Follow-Up Mr. Aparicio is an 85 yo M with history of hypertension, CAD s/p cardiac stents, CKD stage IV, hyperlipidemia, and COPD who presents via [facility] with a 3 day history of shortness of breath and fluid retention. He reports he was recently admitted to the hospital with a left leg cellulitis, which turned out to be gout, and was eventually sent to a rehab hospital after that. 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 He apparently had a salty diet while at this hospital which he believes contributed to the swelling. He reports that Jennifer noticed his leg swelling worsened, and he felt he was more short of breath, and his weights were fluctuating according to his scale at home. He usually weighs around 225lbs (102kg). (Currently 107.5 kg on admission). He was transferred to [facility] due to lack of beds at [facility]. At [facility] he received 80mg IV Lasix at 20:34 then 100mg IV Lasix at 23:20 (he takes 120mg PO daily per day prior to admission). His labs at hospital showed a WBC of 13.3, Hb 11.2, Glucose 170, Na 130, K 4.0, BUN 84, Cr 2.33 AST 56, ALT 72, gfr 27, INR 1.35 Troponin 0.06. He had a CXR which showed cardiomegaly with diffuse vascular congestion and suspected small left pleural effusion. CT Chest 07/19/16 showed: 1. Tracheomalacia 2. Cardiomegaly and coronary artery calcifications 3. CT findings consistent with congestive failure and interstitial pulmonary edema 4. Mildly enlarged mediastinal lymph nodes 5. Cholelithiasis 6. Moderate bilateral pleural effusions V/Q Scan: Findings are technically indeterminant due to the presence of superimposed congestive failure. This is at most intermediate probability for pulmonary embolus. No large segmental perfusion defect is seen Abd xray: 1. Radiographic evidence of congestive failure with interstitial edema and small bilateral pleural effusions 2. Cholelithiasis 3. No evidence of bowel obstruction. No evidence of free air. He reports he sees Dr Nice for Nephrology and Dr Hess for Cardiology. He was hospitalized for 28 days here with a prolonged course of diuresis complicated by renal failure but eventually stablized with his weight and is on a good regimen of diuretics and cardiac meds. Acute Hypoxic Respiratory Failure, secondary to acute systolic heart failure, bilateral pleural effusions, CHF EF 40-45%, CAD, Mod /AI ECHO: * Left ventricular systolic function is mildly reduced. * Ejection Fraction = 40-45%. * There is a moderate to large sized posterior, inferior, and lateral wall motion abnormality with severe hypokinesis to akinesis of the segments. * The aortic valve is severely calcified. * Doppler and 2D imaging of the aortic valve are discordant. Moderate aortic stenosis is present. * Moderate aortic regurgitation. * There is mild mitral regurgitation. * There is mild to moderate tricuspid regurgitation. 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 Hypercalcemia possibly from overdiuresis and volume depletion but could be from metolazone as well. Continue all diuretics for now and repeat BMP 1 week after discharge with Nephro f/u. - lasix with cont once daily metolazone, nephrology is following -check BMP in 1 week -f/u with Nephrology in [address] Suri Nice on 08/23/16 at 10:20 AM in [facility] office location week after discharge -renally dose all meds -avoid nephrotoxins Bradycardia decreased coreg to 3.125 mg bid plus imdur, holding hydralazine gout, improved with one dose of colchicine Constipation miralax and senna DMII- SSI, usually on glipizide and januvia DVT^ prevention- heparin DNR Dispo-for placement at SNF today Current Hospital Diet Patient's current hospital diet: Diabetes Type 2 Diet, Low Sodium Diet (2gm Na) Discharge Diet Recommended Diet: Low Sodium Diet (2gm Na), Diabetes Type 2 Diet Fluid Restriction: 1500 ml (6 cups) Procedures Procedures Performed: ECHO CT Chest w/o contrast V/Q scan intermediate probability for PE but not reliable due to CHF Abd xray CXR Pending Studies Studies pending at discharge: no Physician Orders On Transfer Special Precautions: Fall precautions IV Therapy: None Vital Signs: Routine Weigh: Daily Additional Orders: F/u with Nephrology in [address] Suri Nice on 08/23/16 at 10:20 AM in [facility] office location week after discharge F/u with Pulmonology VICTORINA German within 2 weeks, will need formal PFTs Check BMP in 1 week Follow up PCP within 1 week after discharge from [facility] Discussion: Not Applicable Laboratory Results Hemoglobin A1c Test 07/13/16 05:51 Range/Units Estimated Average Glucose 171 mg/dl Hemoglobin A1c 7.6 H 4.5-5.6 % Medical Emergencies . Who to Call and When: Medical Emergencies: If at any time you feel your situation is an emergency, please call 911 immediately. . Non-Emergent Contact Non-Emergency issues call your: Primary Care Provider, [employer] Call Non-Emergent contact if: you have a fever, your pain is not controlled, your pain is worsening, your pain is unusual for you, you have any medication questions Call your Primary Care doctor if any of the following symptoms or problems start or get worse: * Shortness of breath or difficulty breathing * Wake up at night short of breath * Chest pain * Cough * Swelling of your hands, feet, or legs * More fatigued or tired with your normal activity * Palpitations - sudden fast heart beats WEIGHT * Weigh yourself every morning after using the bathroom. * Use the same scale. * Wear the same amount of clothing. * Write your weight down on a chart. * Call your Primary Care doctor if you gain more than 2-3 pounds in 1-2 days. MEDICATIONS * Use this discharge instruction sheet for medication instructions. * Take your medications at the time your doctor ordered. * Do not skip a dose of your medicines. * If you miss a dose of medicine, take it as soon as possible, but DO NOT DOUBLE A DOSE. * Read your medicine information when you get home. * Know all of the side effects of your medicine. If in doubt, ask your pharmacist * Call your Primary Care doctor's office if you have any side effects. * Be sure all of your doctors know what medicine and herbs you take (including cold, flu, and herbal medicine). Take the following with you to your follow-up doctor appointments: * Weight Chart * Medication List * List of questions Do not drink excessive alcohol, beer or wine. . . "Provider Documentation" section prepared by Kareen Burleson. Core Measure Problem Core Measures: None
--- NOTE | 2016-08-09 21:47 | Discharge Summary ---
Discharge Summary Admission Date: Jul 12, 2016 at 03:54 Discharge Date: Aug 09, 2016 [facility]charge Disposition: [facility] facility Principal Diagnosis: Acute on chronic CHF, Acute hypoxemic respiratory failure Problems/Secondary Diagnoses: Hypertension CAD s/p cardiac stents CKD stage IV Hyperlipidemia Suspected COPD Gout Tracheomalacia Mildly enlarged mediastinal lymph nodes Cholelithiasis Moderate bilateral pleural effusions Moderate and AI Mild mitral regurgitation Moderate tricuspid regurgitation FILIBERTO Acute on Chronic Kidney Disease stage III Hypercalcemia Bradycardia Constipation DMII Procedures: CXR 07/12/16: 1. Diffuse interstitial thickening suggestive of pulmonary edema. 2. Hazy bibasilar opacities which may reflect atelectasis or less likely pneumonia. Radiographic follow up is recommended. 3. Suspected small bilateral pleural effusions CXR 07/17/16: Progression of the moderate pulmonary edema. Cardiomegaly and small bilateral pleural effusions persist V/Q Scan 07/19/16: Findings are technically indeterminant due to the presence of superimposed congestive failure. This is at most intermediate probability for pulmonary embolus. No large segmental perfusion defect is seen CT Chest: 1. Tracheomalacia 2. Cardiomegaly and coronary artery calcifications 3. CT findings consistent with congestive failure and interstitial pulmonary edema 4. Mildly enlarged mediastinal lymph nodes 5. Cholelithiasis 6. Moderate bilateral pleural effusions Abd xray 07/22/16: 1. Radiographic evidence of congestive failure with interstitial edema and small bilateral pleural effusions 2. Cholelithiasis 3. No evidence of bowel obstruction. No evidence of free air. Chest xray 07/25/16: 1. Cardiomegaly with evidence of congestive failure and interstitial edema. This has not significantly changed from 07/22/2016 2. Layering pleural effusions with bibasilar consolidation ECHO: * Left ventricular systolic function is mildly reduced. * Ejection Fraction = 40-45%. * There is a moderate to large sized posterior, inferior, and lateral wall motion abnormality with severe hypokinesis to akinesis of the segments. * The aortic valve is severely calcified. * Doppler and 2D imaging of the aortic valve are discordant. Moderate aortic stenosis is present. * Moderate aortic regurgitation. * There is mild mitral regurgitation. * There is mild to moderate tricuspid regurgitation. Consultations: Nephrology Pulmonology Thoracic Surgery Palliative Care Medication Reconciliation New Medications: Carvedilol (Carvedilol) 6.25 Mg Tab 3.125 MG PO BID for 30 Days, TAB Docusate Sodium (Docusate Sodium) 100 Mg Cap 100 MG PO BID for 30 Days, CAP Furosemide (Furosemide) 40 Mg Tab 120 MG PO TIDM for 30 Days, TAB Insulin Aspart (Novolog Flexpen) 100 Units/Ml Inj 0 UNITS SC ACHS for 30 Days Insulin Glargine (Lantus Solostar) 100 Unit/Ml Inj 13 UNIT SC DAILY for 30 Days Ipratropium-Albuterol (Duoneb) 3 Ml Nebu 3 ML INH Q4RWA for 30 Days Isosorbide Mononitrate (Isosorbide Mononitrate ER) 60 Mg Tab 60 MG PO QAM for 30 Days, TAB Metolazone (Metolazone) 5 Mg Tab 5 MG PO DAILY@0530 for 30 Days, TAB Nutritional Supplements (Boost) 1 Liq Liq 0.5 CAN PO TIDM for 30 Days Nystatin (Nystop) 45 Appln/15 Gm Powd 1 APPLN EXT DAILY for 30 Days Polyethylene (Miralax) 17 Gm Pow 17 GM PO BID for 30 Days Potassium Chloride (Klor-Con M20) 20 Meq Tabcr 40 MEQ PO TID for 30 Days Saline ([place] Nasal [place]) 0.65 % Spr 2 SPRAYS NA Q1HWA PRN for Nasal Congestion for 30 Days Sertraline HCl (Sertraline HCl) 50 Mg Tab 50 MG PO QAM for 30 Days, TAB Continued Medications: Allopurinol (Zyloprim) 300 Mg Tab 1 TAB PO DAILY for 30 Days, #30 TAB 5 Refills Aspirin (Aspirin EC Low Dose) 81 Mg Ectab 81 MG PO DAILY, #7 Clopidogrel (Plavix) 75 Mg Tab 75 MG PO DAILY for 30 Days, TAB (This prescription has been renewed) Finasteride (Proscar) 5 Mg Tab 1 TAB PO DAILY for 30 Days, #30 TAB 11 Refills Sitagliptin (Januvia) 50 Mg Tab 50 MG PO DAILY, #7 TAB Discontinued Medications: Ergocalciferol (Vitamin D2) 2,000 Unit Tab 79220 UNITS PO weekly, #7 Furosemide (Lasix) 20 Mg Tab 3 TAB PO BID for 30 Days, #180 TAB 5 Refills Glipizide (Glucotrol) 10 Mg Tab 1 TAB PO BID for 30 Days, #60 TAB 5 Refills Hydralazine Hcl (Apresoline) 10 Mg Tab 1 TAB PO TID for 90 Days, #270 TAB 3 Refills Isosorbide Mononitrate Ext Rel (Imdur Ext Rel) 120 Mg Ertab 120 MG PO QAM, #7 TAB Referrals At Discharge Follow up Referrals: Medical Legal Investigator Referral - Within 2 Weeks with Suri Nice DO Physician Referral - Within 1-2 Weeks with Krista Tran C.R.N.P. Plant Clerk Referral - Within 2 Weeks with Devon Isaac PA-C Discharge Exam Physical Exam: General Appearance: WD/WN, no apparent distress Eyes: normal inspection, sclerae normal Neck: trachea midline Respiratory/Chest: no respiratory distress, no accessory muscle use, + crackles (mild at bases bilat) Cardiovascular: regular rate, rhythm, no edema, + systolic murmur (2/6 FLAKO at RUSB) Abdomen: normal bowel sounds, non tender, soft Extremities: normal inspection, no pedal edema, no calf tenderness Neurologic/Psychiatric: alert, normal mood/affect Skin: normal color, warm/dry, no rash Review of Systems: Constitutional: No fever Eyes: No problem reported ENT: No problem reported Respiratory: No shortness of breath Cardiovascular: No chest pain Abdomen: No pain Musculoskeletal: No problem reported Genitourinary - Male: No problem reported Neurologic: No problem reported Psychiatric: No problem reported Hematologic / Lymphatic: No problem reported Integumentary: No problem reported Hospital Course Mr. Aparicio is an 85 yo M with history of hypertension, CAD s/p cardiac stents, CKD stage IV, hyperlipidemia, and COPD who presents via [facility] with a 3 day history of shortness of breath and fluid retention. He reports he was recently admitted to the hospital with a left leg cellulitis, which turned out to be gout, and was eventually sent to a rehab hospital after that. He was then discharged 4 days ago home, and lives with his research program internship Jennifer. He apparently had a salty diet while at this hospital which he believes contributed to the swelling. He reports that Jennifer noticed his leg swelling worsened, and he felt he was more short of breath, and his weights were fluctuating according to his scale at home. He usually weighs around 225lbs (102kg). (Currently 107.5 kg on admission). He was transferred to [facility] due to lack of beds at [facility]. At [facility] he received 80mg IV Lasix at 20:34 then 100mg IV Lasix at 23:20 (he takes 120mg PO daily per day prior to admission). His labs at [facility] showed a WBC of 13.3, Hb 11.2, Glucose 170, Na 130, K 4.0, BUN 84, Cr 2.33 AST 56, ALT 72, gfr 27, INR 1.35 Troponin 0.06. He had a CXR which showed cardiomegaly with diffuse vascular congestion and suspected small left pleural effusion. CT Chest 07/19/16 showed: 1. Tracheomalacia 2. Cardiomegaly and coronary artery calcifications 3. CT findings consistent with congestive failure and interstitial pulmonary edema 4. Mildly enlarged mediastinal lymph nodes 5. Cholelithiasis 6. Moderate bilateral pleural effusions V/Q Scan: Findings are technically indeterminant due to the presence of superimposed congestive failure. This is at most intermediate probability for pulmonary embolus. No large segmental perfusion defect is seen Abd xray: 1. Radiographic evidence of congestive failure with interstitial edema and small bilateral pleural effusions 2. Cholelithiasis 3. No evidence of bowel obstruction. No evidence of free air. He reports he sees Dr Nice for Nephrology and Dr Hess for Cardiology. He was hospitalized for 28 days here with a prolonged course of diuresis complicated by renal failure but eventually stablized with his weight and is on a good regimen of diuretics and cardiac meds. Acute Hypoxic Respiratory Failure, secondary to acute systolic heart failure, bilateral pleural effusions, CHF EF 40-45%, CAD, Mod /AI ECHO: * Left ventricular systolic function is mildly reduced. * Ejection Fraction = 40-45%. * There is a moderate to large sized posterior, inferior, and lateral wall motion abnormality with severe hypokinesis to akinesis of the segments. * The aortic valve is severely calcified. * Doppler and 2D imaging of the aortic valve are discordant. Moderate aortic stenosis is present. * Moderate aortic regurgitation. * There is mild mitral regurgitation. * There is mild to moderate tricuspid regurgitation. -continue lasix 120 mg tid, metalozone 5mg daily, KCl 40 tid -mobilize secretions to ease effort, continue duonebs q6 hours -continue ASA, Plavix FILIBERTO, possible COPD, with chronic bronchitis -continue nocturnal bipap - appreciate palliative care input, family is interested in acute rehab -Will need f/u with Pulm as an outpatient and needs formal PFTs to diagnose COPD Acute on Chronic Kidney Disease, hypercalcemia Ca++ 11.4- diamond sander at 2.0 on average throughout hospitalization. Hypercalcemia possibly from overdiuresis and volume depletion but could be from metolazone as well. Continue all diuretics for now and repeat BMP 1 week after discharge with Nephro f/u. - lasix with cont once daily metolazone, nephrology is following -check BMP in 1 week -f/u with Nephrology in [address] Suri Nice on 08/23/16 at 10:20 AM in [facility] office location week after discharge -renally dose all meds -avoid nephrotoxins Bradycardia decreased coreg to 3.125 mg bid plus imdur, holding hydralazine gout, improved with one dose of colchicine Constipation miralax and senna DMII- SSI, usually on glipizide and januvia DVT^ prevention- heparin DNR Dispo-for placement at SNF today Total Time Spent: Greater than 30 minutes This includes examination of the patient, discharge planning, medication reconciliation, and communication with other providers. Discharge Instructions Please refer to the electronic Patient Visit Report (Discharge Instructions) for additional information. Follow-Up PCP within 1 week Nephro within 2 weeks Additional Copies To Krista Tran,C.R.N.P.; Suri Nice I., DO; Devon Isaac, MEDARDO
[2016-11-11] MEDS ORDERED: LPR25 PO (09:15)
[2016-11-11] MEDS ORDERED: AMX500 PO (09:15)
[2016-11-11] MEDS ORDERED: FRS/40 PO (09:15)
[2016-11-11] MEDS ORDERED: LPT40 PO (09:15)
== END 2016-08-09 10:52 | DRG 291 ==
LOC: ENRESERVDT → ENRESERVTM → C.MSICU 03:41 → UNDOADMIN 03:41 → C.MSICU 03:54 → C.MED 07-13 10:20 → C.MSICU 07-13 10:20 → C.4E 07-14 23:20
PROVIDERS: ADMIT Internal Medicine; ATTEND Internal Medicine
DX: I50.43 Acute on chronic combined systolic (congestive) and diastolic (congestive) heart failure (principal); J96.00 Acute respiratory failure, unspecified whether with hypoxia or hypercapnia; I25.10 Atherosclerotic heart disease of native coronary artery without angina pectoris; N18.4 Chronic kidney disease, stage 4 (severe); M10.9 Gout, unspecified; E78.5 Hyperlipidemia, unspecified; Z66 Do not resuscitate; G47.33 Obstructive sleep apnea (adult) (pediatric); E83.52 Hypercalcemia; K59.00 Constipation, unspecified; I12.9 Hypertensive chronic kidney disease with stage 1 through stage 4 chronic kidney disease, or unspecified chronic kidney disease; Z95.1 Presence of aortocoronary bypass graft; E87.6 Hypokalemia; E83.41 Hypermagnesemia; N40.0 Benign prostatic hyperplasia without lower urinary tract symptoms; R00.1 Bradycardia, unspecified; I36.0 Nonrheumatic tricuspid (valve) stenosis; Z95.5 Presence of coronary angioplasty implant and graft; E11.21 Type 2 diabetes mellitus with diabetic nephropathy; Z87.891 Personal history of nicotine dependence

== ENCOUNTER 2016-09-16 19:37 | Emergency (ER) | payer MEDICARE, OTHER ==
[~2016-09-16] VITALS: Ht 162.6 cm; Wt 98.0 kg
[~2016-09-16 19:37] MED LIST: ALLO300T2 PO; ASPEC81 PO; CLC100 PO; CLOP1TAB15 PO; CRG625 PO; FINA5TAB PO; IMDSR60 PO; INSDGIPEN SC; IPRASOL4 INH; LSX40 PO; MCRK20 PO; MRLP17 PO; NUTR-7 PO; NVLGIPEN SC; NYSP EXT; SALI0.6510; SITA50TA3 PO; ZLF50 PO; ZRX5 PO
[2016-09-16 19:41] VITALS: TEMP 36.7; Ht 162.6 cm; Wt 98.0 kg
[2016-09-16] MEDS ORDERED: ALLO300T2 PO (19:59)
[2016-09-16] MEDS ORDERED: ASPI81TA28 PO (19:59)
[2016-09-16] MEDS ORDERED: POLY335019 PO (19:59)
[2016-09-16] MEDS ORDERED: FRS/40 PO (19:59)
[2016-09-16] MEDS ORDERED: FINA5TAB PO (19:59)
[2016-09-16] MEDS ORDERED: CLOP1TAB15 PO (19:59)
[2016-09-16] MEDS ORDERED: ISOS60TA25 PO (19:59)
[2016-09-16] MEDS ORDERED: MAGIC1 PO (19:59)
[2016-09-16] MEDS ORDERED: NVLGI/PEN SQ (19:59)
[2016-09-16] MEDS ORDERED: CARV3.122 PO (19:59)
[2016-09-16] MEDS ORDERED: POTA20TA16 PO (19:59)
[2016-09-16] MEDS ORDERED: IPRASOL4 INH (19:59)
[2016-09-16] MEDS ORDERED: GLIP-199 PO (19:59)
[2016-09-16] MEDS ORDERED: INSDGI SQ (19:59)
[2016-09-16] MEDS ORDERED: DOCU100C31 PO (19:59)
[2016-09-16] MEDS ORDERED: SITA50TA3 PO (19:59)
[2016-09-16] MEDS ORDERED: SERT50TA PO (20:21)
--- NOTE | 2016-09-16 20:33 | DIAGNOSTIC IMAGING REPORT ---
CHEST ONE VIEW PORTABLE CLINICAL HISTORY: leg swelling, hx CHF dyspnea COMPARISON STUDY: 07/25/2016 FINDINGS: Limited study technically due to patient body habitus and mild respiratory motion. Mild stable cardia megaly. Prior median sternotomy. Parenchymal infiltrative changes left lung base. Pulmonary vascular congestion. IMPRESSION: Mild stable cardia megaly. Pulmonary vascular congestion versus early congestive failure. Possible superimposed left basilar infiltrate Electronically signed by: Adam Bond M.D. 09/16/2016 8:32 PM Dictated Date/Time: 09/16/2016 8:31 PM
[2016-09-16 20:46] LABS: BASO % 1.4 %; BASO ABS # 0.13 K/uL (0-0.2); COMPLETE YES; EOS % 5.1 %; HEMATOCRIT 38.1 % (42-52); IG% 1.1 %; LYMPH % 19.5 %; LYMPH ABS # 1.76 K/uL (1.2-3.4); MEAN CELL VOLUME 93.6 fL (80-100); MEAN CORPUSCULAR HEMOGLOBIN 31.9 pg (25-34); MEAN CORPUSCULAR HGB CONC 34.1 g/dl (32-36); MEAN PLATELET VOLUME 9.7 fL (7.4-10.4); MONO % 11.3 %; NEUT % 61.6 %; PLATELET COUNT 264 K/uL (130-400); RED BLOOD COUNT 4.07 M/uL (4.7-6.1); WHITE BLOOD COUNT 9.03 K/uL (4.8-10.8)
[2016-09-16 21:06] LABS: ALT/SGPT 51 U/L (12-78); BLOOD UREA NITROGEN 44 mg/dl (7-18); BUN/CREATININE RATIO 23.3 (10-20); CALCIUM 9.5 mg/dl (8.5-10.1); CARBON DIOXIDE 29 mmol/L (21-32); CHLORIDE 95 mmol/L (98-107); GLUCOSE 208 mg/dl (70-99); POTASSIUM 4.4 mmol/L (3.5-5.1); SODIUM 134 mmol/L (136-145)
[2016-09-16 21:09] LABS: ALKALINE PHOSPHATASE 150 U/L (45-117); AST/SGOT 42 U/L (15-37)
--- NOTE | 2016-09-16 21:32 | DIAGNOSTIC IMAGING REPORT ---
BILATERAL LOWER EXTREMITY VENOUS DOPPLER HISTORY: Pain. Edema. L lower leg swelling COMPARISON STUDY: None. FINDINGS: There is normal compressibility, flow, and augmentation within the bilateral lower extremity deep venous systems. IMPRESSION: No DVT within the right or left lower extremity. Electronically signed by: Adam Bond M.D. 09/16/2016 9:31 PM Dictated Date/Time: 09/16/2016 9:31 PM
[2016-09-16 21:38] LABS: URINE APPEARANCE CLEAR (CLEAR); URINE BILIRUBIN NEG (NEG); URINE COLOR YELLOW; URINE EPITHELIAL CELL AUTO 0-5 /lpf (0-5); URINE NITRITE NEG (NEG); URINE SPECIFIC GRAVITY 1.008 (1.000-1.030); UROBILINOGEN NEG (NEG)
[2016-09-16 21:44] LABS: MANUAL MICROSCOPIC REQUIRED? NO; REVIEW REQ? NO
--- NOTE | 2016-09-16 22:04 | EMERGENCY ROOM VISIT NOTE ---
ED Visit Note First contact with patient: 19:49 This Patient was discussed with the physician assistant media buyer, Santiago Weir PA-C. The pertinent historical and physical exam findings were confirmed. I agree with the studies ordered and with the interpretations of these studies. I agree with the disposition and care plan.
[2016-09-16 22:18] VITALS: BP 132/75; PULSE 88; O2SAT 94
--- NOTE | 2016-09-17 01:42 | EMERGENCY ROOM VISIT NOTE ---
ED Visit Note First contact with patient: 19:49 Chief Complaint: Left ankle swelling. History of Present Illness: Mr. Aparicio is an 85-year-old white male who is brought into the ED via wheelchair with complaints of left ankle swelling. Historically patient was recently discharged from the hospital with an episode of acute on chronic congestive heart failure with hypoxic respiratory failure. After his stay in this hospital he was discharged to rehabilitation Hospital and spent 20 days at that hospital. He was discharged approximately 10 days ago and is currently under the care of community nursing. Patient reports he has been feeling well since his discharge. Family members report they noticed some left ankle swelling today and they called community nursing. They recommended that the patient be brought to the ED for evaluation of a DVT. Family members report that they noticed swelling above the patient's left ankle a few hours ago. They also reported that a few hours ago he was standing up from the toilet, lost his balance and fell back on the toilet without striking his head and reported "he was feeling funny." When I spoke to the patient he reports he is feeling fine but is worried about the swelling above his ankle may be a DVT. He reports he is not having any pain with the swelling. When I question her about events earlier today i.e. falling back onto the toilet and feeling funny, he reported that he normally uses a walker to stand up for support but he did not have it by the toilet when he attempted to stand. He goes on to report that the ring this episode there was no dizziness or lightheadedness and that he just stumbled backwards because he was not supported by his walker. Additionally patient has no complaints at this time except for being thirsty; he reports he has been on placed on Lasix which has caused him to urinate and he is also on a water restriction because of his recent episode of congestive heart failure. Currently at rest he denies lightheadedness, dizziness, chest pain, shortness of breath, abdominal pain, decreased appetite, nausea, back pain, flank pain, extremity pain, extremity weakness/numbness/tingling. Review of Systems: As noted above in history of present illness. All body systems were reviewed and found to be negative as noted above. Past Medical History: (1) Cellulitis of left leg (2) CHF (congestive heart failure) (3) CKD (chronic kidney disease) (4) CKD stage G4/A1, GFR 15-29 and albumin creatinine ratio <30 mg/g (5) COPD (chronic obstructive pulmonary disease) (6) DM2 (diabetes mellitus, type 2) (7) Hyperlipidemia (8) Hypertension (9) Nasal bone fracture (10) STEMI (ST elevation myocardial infarction) Surgical Problems: (1) Hx of heart artery stent (2) Hx of heart surgery (3) Hx of tonsillectomy Current Medications: Medications Dose Route/Sig Max Daily Dose Days Date Category Zoloft (Sertraline HCl) 50 Mg Tab 50 Mg PO DAILY 09/16/16 Reported Aspirin Ec (Aspirin) 81 Mg Tab 81 Mg PO DAILY 09/16/16 Reported Miralax (Polyethylene Glycol 3350) 1 Pow Pow 17 Gm PO DAILY PRN 09/16/16 Reported Docusate Sodium 100 Mg Cap 1 Cap PO BID PRN 7 09/16/16 Reported Januvia (Sitagliptin) 50 Mg Tab 50 Mg PO DAILY 09/16/16 Reported Zyloprim (Allopurinol) 300 Mg Tab 300 Mg PO DAILY 09/16/16 Reported Klor-Con (Potassium Chloride) 20 Meq Tabcr 40 Meq PO TID 09/16/16 Reported Lantus (Insulin Glargine) 100 Unit/Ml Inj 18 Units SQ DAILY 09/16/16 Reported Novolog Flexpen (Insulin Aspart) 100 Units/Ml Inj SQ ACHS 09/16/16 Reported Duoneb (Ipratropium-Albuterol) 3 Ml Nebu 1 Treatment INH Q6 PRN 09/16/16 Reported Imdur Ext Rel (Isosorbide Mononitrate) 60 Mg Ertab 60 Mg PO QAM 09/16/16 Reported Coreg (Carvedilol) 3.125 Mg Tab 3.125 Mg PO BID 09/16/16 Reported Lasix (Furosemide) 40 Mg Tab 120 Mg PO TID 09/16/16 Reported Glipizide Er (Glipizide) 10 Mg Tab 15 Mg PO DAILY 90 09/16/16 Reported Plavix (Clopidogrel Bisulfate) 75 Mg Tab 75 Mg PO DAILY 09/16/16 Reported Proscar (Finasteride) 5 Mg Tab 5 Mg PO DAILY 09/16/16 Reported Allergies to Medications: Amoxicillin, zolpidem. Social History: Patient is currently retired; he feels safe in his home environment; he denies tobacco and alcohol use. Physical Examination: Vital Signs: Date Time Temp Pulse Resp B/P Pulse Ox O2 Delivery O2 Flow Rate FiO2 09/16/16 22:18 88 18 132/75 94 Room Air 09/16/16 21:54 89 22 132/77 95 Room Air 09/16/16 19:41 36.7 86 20 127/71 92 GENERAL: 85-year-old male in no acute distress, chronically ill-appearing, afebrile and hemodynamically stable. NEUROLOGICAL: Awake, alert and oriented to person, place and time. Answering questions appropriately and following commands. Good hand eye coordination. SKIN: Warm, very dry and pink. HEENT: Atraumatic and normocephalic. PERRLA. Sclera white and conjunctiva pink. No drainage from naris. Oral cavity moist and pink. Pharynx is nonerythematous or edematous. Speech normal. No lymphadenopathy. Trachea midline. No jugular venous distention. BACK: No tenderness over the bony spine. No CVA tenderness. THORAX: Lungs sounds are clear to auscultation, but decreased bilaterally. Equal bilaterally with symmetrical chest wall. No wheezing, rales or rhonchi. No crepitus, tenderness, subcutaneous air or deformities noted. No increased respiratory effort or rate. HEART: Regular rate and rhythm. No gallops, rubs or murmurs are appreciated. ABDOMEN: Flat, soft and nontender. Positive bowel sounds in all quadrants. No guarding, rigidity or organomegaly. EXTREMITIES: Moves all extremities well on command and with purpose. All distal neurovascular statuses are intact and equal bilaterally. No calf tenderness or cords. Patient does have venous stasis changes bilaterally in the lower legs and mild dependent edema. Slightly more pronounced on the left than the right. Additionally over the anterior left lower leg there is mild erythema but there is no tenderness, warmth or lymphangitis. ED Course: Patient is assessed as noted above. Laboratory Testing: Test 09/16/16 20:20 09/16/16 20:50 Range/Units White Blood Count 9.03 4.8-10.8 K/uL Red Blood Count 4.07 4.7-6.1 M/uL Hemoglobin 13.0 14.0-18.0 g/dL Hematocrit 38.1 42-52 % Mean Corpuscular Volume 93.6 80-100 fL Mean Corpuscular Hemoglobin 31.9 25-34 pg Mean Corpuscular Hemoglobin Concent 34.1 32-36 g/dl Platelet Count 264 130-400 K/uL Mean Platelet Volume 9.7 7.4-10.4 fL Neutrophils (%) (Auto) 61.6 % Lymphocytes (%) (Auto) 19.5 % Monocytes (%) (Auto) 11.3 % Eosinophils (%) (Auto) 5.1 % Basophils (%) (Auto) 1.4 % Neutrophils # (Auto) 5.56 1.4-6.5 K/uL Lymphocytes # (Auto) 1.76 1.2-3.4 K/uL Monocytes # (Auto) 1.02 0.11-0.59 K/uL Eosinophils # (Auto) 0.46 0-0.5 K/uL Basophils # (Auto) 0.13 0-0.2 K/uL RDW Standard Deviation 55.0 36.4-46.3 fL RDW Coefficient of Variation 16.1 11.5-14.5 % Immature Granulocyte % (Auto) 1.1 % Immature Granulocyte # (Auto) 0.10 0.00-0.02 K/uL Sodium Level 134 136-145 mmol/L Potassium Level 4.4 3.5-5.1 mmol/L Chloride Level 95 98-107 mmol/L Carbon Dioxide Level 29 21-32 mmol/L Anion Gap 10.0 3-11 mmol/L Blood Urea Nitrogen 44 7-18 mg/dl Creatinine 1.90 0.60-1.40 mg/dl Est Creatinine Clear Calc Drug Dose 29.0 ml/min Estimated GFR () 35.9 Estimated GFR (Non- 31.0 BUN/Creatinine Ratio 23.3 10-20 Random Glucose 208 70-99 mg/dl Calcium Level 9.5 8.5-10.1 mg/dl Total Bilirubin 0.5 0.2-1 mg/dl Direct Bilirubin < 0.1 0-0.2 mg/dl Aspartate Amino Transf (AST/SGOT) 42 15-37 U/L Alanine Aminotransferase (ALT/SGPT) 51 12-78 U/L Alkaline Phosphatase 150 45-117 U/L Total Protein 7.8 6.4-8.2 gm/dl Albumin 3.3 3.4-5.0 gm/dl Urine Color YELLOW Urine Appearance CLEAR CLEAR Urine pH 5.0 4.5-7.5 Urine Specific [place] 1.008 1.000-1.030 Urine Protein NEG NEG Urine Glucose (UA) NEG NEG Urine Ketones NEG NEG Urine Occult Blood NEG NEG Urine Nitrite NEG NEG Urine Bilirubin NEG NEG Urine Urobilinogen NEG NEG Urine Leukocyte Esterase SMALL NEG Urine WBC (Auto) 10-30 0-5 /hpf Urine RBC (Auto) 0-4 0-4 /hpf Urine Hyaline Casts (Auto) 1-5 0-5 /lpf Urine Epithelial Cells (Auto) 0-5 0-5 /lpf Urine Bacteria (Auto) 1+ NEG Chest X-Ray: Was reviewed by myself and read by the radiologist; he reports this was a limited study technically due to body habitus and motion artifact. He felt there was mild stable cardiomegaly, prior median sternotomy pulmonary vascular congestion versus early congestive heart failure and a possible superimposed left basilar infiltrate. Bilateral Lower Extremity Venous Doppler Ultrasound: Was reviewed by myself and read by the radiologist showing no deep vein thrombus in the right or lower extremities. Patient was reassessed multiple times during his stay in the emergency department. Patient's case was reviewed with Dr. Preciado; he independently assessed the patient we agreed on diagnostic approach, treatment, disposition and plan. Patient and family and friends were educated on today's findings and instructed on his treatment plan; they verbalizes understanding and agreement with this plan. Clinical Impression: Left lower leg swelling. Decision-Making: Initially my differential diagnosis I considered DVT, cellulitis, worsening congestive heart failure, worsening kidney failure, dependent edema, early contusion, leg fracture and other causes. Disposition: Patient discharged home in stable condition accompanied by his son and a family friend; prior to departure he was reassessed and subjectively reported he was pain and symptom-free. Plan: Was encouraged that patient continue current medications as prescribed. Was encouraged to have the patient try to elevate his legs while at rest and not keep them hanging in the dependent position. Was encouraged that the patient follow-up with family physician for recheck in 2 -4 days. Was encouraged to return patient to the ED for worsening swelling, uncontrolled pain, skin redness, fevers, shortness of breath, chest pain or any new/ concerning symptoms.
[2016-11-11] MEDS ORDERED: FRS/40 PO (09:15)
[2016-11-11] MEDS ORDERED: LPT40 PO (09:15)
[2016-11-11] MEDS ORDERED: AMX500 PO (09:15)
[2016-11-11] MEDS ORDERED: LPR25 PO (09:15)
== END 2016-09-16 22:22 | disposition home or self-care (01) ==
LOC: C.EDB 19:39 → C.EDD 22:22
DX: M79.89 Other specified soft tissue disorders (principal); I50.9 Heart failure, unspecified; N18.9 Chronic kidney disease, unspecified; J44.9 Chronic obstructive pulmonary disease, unspecified; E11.9 Type 2 diabetes mellitus without complications; E78.5 Hyperlipidemia, unspecified; I10 Essential (primary) hypertension; I25.2 Old myocardial infarction; Z79.82 Long term (current) use of aspirin; Z79.4 Long term (current) use of insulin

== ENCOUNTER 2016-11-03 14:57 | Inpatient (IN) | payer MEDICARE, OTHER ==
[~2016-11-03] VITALS: Ht 172.7 cm; Wt 104.5 kg
[~2016-11-03 14:57] MED LIST changes: -ASPEC81 PO; +ASPI81TA28 PO; +CARV3.122 PO; -CLC100 PO; -CRG625 PO; +DOCU100C31 PO; +FRS/40 PO; +GLIP-199 PO; -IMDSR60 PO; +INSDGI SQ; -INSDGIPEN SC; +ISOS60TA25 PO; -LSX40 PO; -MCRK20 PO; -MRLP17 PO; -NUTR-7 PO; +NVLGI/PEN SQ; -NVLGIPEN SC; -NYSP EXT; +POLY335019 PO; +POTA20TA16 PO; -SALI0.6510; +SERT50TA PO; -ZLF50 PO; -ZRX5 PO
--- NOTE | 2016-11-03 15:35 | EMERGENCY ROOM VISIT NOTE ---
History First contact with patient: 15:55 Chief Complaint: WEAKNESS Stated Complaint: WEAKNESS, Nursing Triage Summary: pt arrived als from home reported pt recently home from a week at [facility]. neonatal intensive care unit nurse states he is weaker then he was when he went in. reported not able to get out of bed by self today, not able to stand and was slurring words hx cardiac pt is a dnr History of Present Illness The patient is a 85 year old male who presents to the Emergency Room with complaints of generalized weakness. This morning he awoke and was very weak and could not even sit up and required help getting out of bed at about 7am. He was able to walk with difficulty down the jo to the living room with a walker, but immediately sat down and fell asleep in a chair for 4 hour sleep. He was able to eat a quarter of a sandwich, but right after he awoke his caregiver noticed he was having slurring of speech, and she says it was almost like he was drunk and to the point she couldn't understand anything he was saying. She says that when he was talking his mouth was not moving right but unsure if he was having actual facial droop. He denies any headache, vision changes, falls, chest pain, fever or chills. He was admitted to [facility] with fluid retention 2/2 heart failure and was in rehab for 1 month. Since then he has been living at home with a family friend caregiver. He has been improving but every month goes for [facility] care at [facility]. Since his last visit there at the beginning of the month, his caregiver has noticed that he had considerably more fluid. Dr. Lainez gave instructions 2 months ago to keep the patient on a 1500ml fluid restriction. Review of Systems See HPI for pertinent positives and negatives. A total of ten systems were reviewed and were otherwise negative. 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 (6) COPD (chronic obstructive pulmonary disease) (7) DM2 (diabetes mellitus, type 2) (8) Hyperkalemia (9) Hyperlipidemia (10) Hypertension (11) Hypoglycemia (12) Nasal bone fracture (13) STEMI (ST elevation myocardial infarction) Surgical Problems: (1) Hx of heart artery stent (2) Hx of heart surgery (3) Hx of tonsillectomy Social History Smoking Status: Unknown if Ever Smoked Alcohol Use: none Drug Use: none Marital Status: other Current/Historical Medications Scheduled Allopurinol (Zyloprim), 300 MG PO QAM Aspirin (Aspirin Ec), 81 MG PO QAM Carvedilol (Coreg), 3.125 MG PO BID Clopidogrel (Plavix), 75 MG PO QAM Docusate Sodium (Docusate Sodium), 1 CAP PO BID Finasteride (Proscar), 5 MG PO QAM Furosemide (Lasix), 120 MG PO TID Glipizide Xl (Glucotrol Xl), 5 MG PO DAILYBB Glipizide Xl (Glucotrol Xl), 10 MG PO DAILYBB Isosorbide Mononitrate Ext Rel (Imdur Ext Rel), 60 MG PO QAM Lisinopril (Lisinopril), 2.5 MG PO QAM Metolazone (Zaroxolyn), 2.5 MG PO 2XWK Potassium Ext Rel (Klor-Con), 40 MEQ PO TID Senna (Senna Lax), 8.6 MG PO QAM Sertraline (Zoloft), 50 MG PO QAM Sitagliptin (Januvia), 50 MG PO QAM Scheduled PRN Ipratropium-Albuterol (Duoneb), 1 TREATMENT INH Q6 PRN for SOB/Wheezing Polyethylene Glycol 3350 (Miralax), 17 GM PO QAM PRN for Constipation Triamcinolone Acet (Aristocort 0.1%), 1 APPLN TOP BID PRN for Affected Skin Folds Allergies Coded Allergies: Zolpidem (Verified Allergy, Severe, SOB, MUSCLES "LOCK UP" PER [facility], ) DELIRIUM. Confusion. Insomnia. Insulin Aspart (Verified Adverse Reaction, Intermediate, REDDENED RASH ALL OVER BODY, 11/03/16) Insulin Glargine (Verified Adverse Reaction, Intermediate, REDDENED RASH ALL OVER BODY, 11/03/16) Amoxicillin (Verified Adverse Reaction, Unknown, NIGHTMARES, 11/03/16) Physical Exam Vital Signs Date Time Temp Pulse Resp B/P Pulse Ox O2 Delivery O2 Flow Rate FiO2 11/03/16 18:50 87/48 11/03/16 18:47 76 19 100 11/03/16 18:46 84/51 11/03/16 18:42 80 20 94/51 100 11/03/16 18:37 78 21 100 11/03/16 18:35 95/51 11/03/16 18:32 80 21 100 11/03/16 18:30 78/65 11/03/16 18:27 79 27 100 11/03/16 18:26 91/49 11/03/16 18:22 78 17 100 11/03/16 18:20 83/40 11/03/16 18:17 76 22 99 11/03/16 18:15 83/47 11/03/16 18:12 75 21 100 11/03/16 18:11 86/50 11/03/16 18:07 75 23 11/03/16 18:02 72 15 93 11/03/16 18:01 86/41 11/03/16 17:57 66 17 95 11/03/16 17:52 65 21 96 11/03/16 17:47 66 20 96 11/03/16 17:42 66 20 97 11/03/16 17:37 68 24 98 11/03/16 17:32 68 23 96 11/03/16 17:31 102/58 11/03/16 17:27 65 18 98 11/03/16 17:22 69 18 96 11/03/16 17:17 68 16 96 11/03/16 17:13 67 21 103/51 97 Room Air 11/03/16 17:12 68 24 103/51 97 11/03/16 16:27 78 20 11/03/16 16:22 67 20 11/03/16 16:17 66 16 11/03/16 16:12 67 19 98 11/03/16 16:07 68 14 97 11/03/16 16:02 68 15 98 11/03/16 15:57 77 16 11/03/16 15:52 66 20 95 11/03/16 15:47 65 25 96 11/03/16 15:14 36.3 68 18 96/51 96 Room Air 11/03/16 15:05 96/51 Physical Exam GENERAL: Awake, alert, well-appearing, in no distress HENT: Normocephalic, atraumatic. Oropharynx unremarkable. EYES: Sclera non-icteric. Left eye inferiolateral subconjunctival hemorrhage, pinpoint pupils NECK: Supple. No nuchal rigidity. FROM. No JVD. RESPIRATORY: Clear to auscultation. CARDIAC: Regular rate, normal rhythm. Systolic Ejection Murmur. Extremities warm and well perfused. Pulses equal. ABDOMEN: Soft, non-distended. No tenderness to palpation. No rebound or guarding. No masses. RECTAL: Deferred. MUSCULOSKELETAL: Chest examination reveals no tenderness. The back is symmetrical on inspection without obvious abnormality. There is no CVA tenderness to palpation. LOWER EXTREMITIES: +1 Pitting in the lower extremities up to the knees. Denies calf tenderness NEURO: A&O x3. Difficulties hearing with hearing aids in place. Answers questions appropriately. SKIN: Erythema over the anterior shins, chronic 2/2 fluid stasis Medical Decision & Procedures Laboratory Results 11/03/16 16:20 Red Blood Count 3.53, Mean Corpuscular Volume 91.8, Mean Corpuscular Hemoglobin 31.7, Mean Corpuscular Hemoglobin Concent 34.6, Mean Platelet Volume 10.3, Neutrophils (%) (Auto) 64.8, Lymphocytes (%) (Auto) 14.7, Monocytes (%) (Auto) 13.9, Eosinophils (%) (Auto) 5.7, Basophils (%) (Auto) 0.6, Neutrophils # (Auto ) 6.01, Lymphocytes # (Auto) 1.37, Monocytes # (Auto) 1.29, Eosinophils # (Auto ) 0.53, Basophils # (Auto) 0.06 11/03/16 16:20 Test 11/03/16 16:20 11/03/16 17:40 11/03/16 18:15 White Blood Count 9.29 K/uL (4.8-10.8) Red Blood Count 3.53 M/uL (4.7-6.1) Hemoglobin 11.2 g/dL (14.0-18.0) Hematocrit 32.4 % (42-52) Mean Corpuscular Volume 91.8 fL (80-100) Mean Corpuscular Hemoglobin 31.7 pg (25-34) Mean Corpuscular Hemoglobin Concent 34.6 g/dl (32-36) Platelet Count 222 K/uL (130-400) Mean Platelet Volume 10.3 fL (7.4-10.4) Neutrophils (%) (Auto) 64.8 % Lymphocytes (%) (Auto) 14.7 % Monocytes (%) (Auto) 13.9 % Eosinophils (%) (Auto) 5.7 % Basophils (%) (Auto) 0.6 % Neutrophils # (Auto) 6.01 K/uL (1.4-6.5) Lymphocytes # (Auto) 1.37 K/uL (1.2-3.4) Monocytes # (Auto) 1.29 K/uL (0.11-0.59) Eosinophils # (Auto) 0.53 K/uL (0-0.5) Basophils # (Auto) 0.06 K/uL (0-0.2) RDW Standard Deviation 50.3 fL (36.4-46.3) RDW Coefficient of Variation 14.8 % (11.5-14.5) Immature Granulocyte % (Auto) 0.3 % Immature Granulocyte # (Auto) 0.03 K/uL (0.00-0.02) Prothrombin Time 11.0 SECONDS (9.0-12.0) Prothromb Time International Ratio 1.0 (0.9-1.1) Activated Partial Thromboplast Time 32.7 SECONDS (21.0-31.0) Partial Thromboplastin Ratio 1.3 Anion Gap 11.0 mmol/L (3-11) Est Creatinine Clear Calc Drug Dose 12.1 ml/min Estimated GFR () 11.2 Estimated GFR (Non- 9.6 BUN/Creatinine Ratio 23.5 (10-20) Calcium Level 9.2 mg/dl (8.5-10.1) Phosphorus Level 8.5 mg/dl (2.5-4.9) Magnesium Level 3.5 mg/dl (1.8-2.4) Total Bilirubin 0.4 mg/dl (0.2-1) Direct Bilirubin < 0.1 mg/dl (0-0.2) Aspartate Amino Transf (AST/SGOT) 29 U/L (15-37) Alanine Aminotransferase (ALT/SGPT) 27 U/L (12-78) Alkaline Phosphatase 83 U/L (45-117) Total Creatine Kinase 221 U/L (39-308) Creatine Kinase MB 13.3 ng/ml (0.5-3.6) Creatine Kinase MB Ratio 6.0 (0-3.0) Troponin I < 0.015 ng/ml (0-0.045) Pro-B-Type Natriuretic Peptide 4592 pg/ml (0-1800) Total Protein 7.7 gm/dl (6.4-8.2) Albumin 3.5 gm/dl (3.4-5.0) Lipase 404 U/L (73-393) Urine Color YELLOW Urine Appearance TURBID (CLEAR) Urine pH 6.5 (4.5-7.5) Urine Specific [place] 1.010 (1.000-1.030) Urine Protein TRACE (NEG) Urine Glucose (UA) NEG (NEG) Urine Ketones NEG (NEG) Urine Occult Blood 2+ (NEG) Urine Nitrite NEG (NEG) Urine Bilirubin NEG (NEG) Urine Urobilinogen NEG (NEG) Urine Leukocyte Esterase LARGE (NEG) Urine WBC (Auto) >30 /hpf (0-5) Urine RBC (Auto) 10-30 /hpf (0-4) Urine Hyaline Casts (Auto) 1-5 /lpf (0-5) Urine Epithelial Cells (Auto) 5-10 /lpf (0-5) Urine Bacteria (Auto) NEG (NEG) Urine Yeast (Auto) (NONE PRSENT) Bedside Glucose 266 mg/dl (70-99) Medications Administered Medications (Trade) Dose Ordered Sig/Vijay Route Start Time Stop Time Status Last Admin Dose Admin Dextrose 50 ml 50 ml STK-MED ONCE .ROUTE 11/03/16 17:49 11/03/16 17:50 DC 11/03/16 17:49 100 ML Sodium Chloride (Nss 500ml) 500 ml @ 999 mls/hr Q31M STAT IV 11/03/16 17:45 11/03/16 18:15 DC 11/03/16 17:45 999 MLS/HR Calcium Gluconate (Calcium Gluconate 10%) 1,000 mg STK-MED ONCE IV 11/03/16 18:01 11/03/16 18:02 DC 11/03/16 18:13 1,000 MG Ceftriaxone Sodium (Rocephin Inj) 1 gm NOW STAT IV 11/03/16 18:02 11/03/16 18:04 DC 11/03/16 18:02 1 GM Sodium Bicarbonate (Sodium Bicarbonate 8.4% Inj) 50 ml STK-MED ONCE IV 11/03/16 18:02 11/03/16 18:03 DC 11/03/16 18:13 50 ML Insulin Human Regular 10 units 10 units STK-MED ONCE .ROUTE 11/03/16 18:03 11/03/16 18:04 DC 11/03/16 18:03 10 UNITS Sodium Chloride (Nss 500ml) 500 ml @ 999 mls/hr Q31M STAT IV 11/03/16 18:22 11/03/16 18:52 DC 11/03/16 18:22 999 MLS/HR Medical Decision Etiologies such as metabolic, infection, hypo/hyperglycemia, electrolyte abnormalities, cardiac sources, intracerebral event, toxicologic, neurologic, as well as others were entertained. Patient is an 85 year old male that presents with generalized weakness. Initial lab evaluation revealed Hyperkalemia, Hypoglycemia, and an elevated Creatinine. Patient started on bicarbonate, calcium, D50, and Insulin. His urine also showed WBC, RBC, and elevated leuk esterase so started on Rocephin. EKG showed Nonspecific ST Elevations and NSR. Discussed case with Dr. Bravo and he will be admitted to the inpatient service. At time of assessment patient is stable condition. Departure Information Dispostion Admitted as an inpatient Condition FAIR Referrals Krista Tran,C.R.N.P. (PCP) Patient Instructions My [facility]
--- NOTE | 2016-11-03 16:04 | DIAGNOSTIC IMAGING REPORT ---
CHEST ONE VIEW PORTABLE CLINICAL HISTORY: Generalized Weakness dyspnea COMPARISON STUDY: 09/16/2016 FINDINGS: Moderate cardiomegaly. Prior median sternotomy. Hilar prominence pulmonary vasculature. IMPRESSION: Early congestive heart failure Electronically signed by: Adam Bond M.D. 11/03/2016 4:02 PM Dictated Date/Time: 11/03/2016 4:01 PM
[2016-11-03] MEDS ORDERED: LSN25 PO (16:08)
[2016-11-03] MEDS ORDERED: GLIP1TAB85 PO (16:08)
[2016-11-03] MEDS ORDERED: GLIP-171 PO (16:08)
[2016-11-03] MEDS ORDERED: METO2.5T PO (16:08)
[2016-11-03] MEDS ORDERED: TRMCR180 TOP (16:08)
[2016-11-03] MEDS ORDERED: SNK PO (16:08)
--- NOTE | 2016-11-03 16:11 | EMERGENCY ROOM VISIT NOTE ---
History Report prepared by Romain: Chichi Tsang Under the Supervision of: Dr. Trey Bailey M.D. First contact with patient: 15:00 Chief Complaint: WEAKNESS Stated Complaint: WEAKNESS, History of Present Illness The patient is a 85 year old male who presents to the Emergency Room with complaints of constant weakness beginning this morning. The patient states that he has a history of CHF and was seen in July for fluid retention and has been living with a caregiver for the last 2 months. He reports that this morning he woke up feeling extremely weak and was not able to get out of be. He notes that with his caregivers help he was able to get out of bed and walk down the hallway to the living room. The patient reports that when he got to the living room he fell asleep for 4 hours and when he woke up his caregiver started to notice some slurred speech. The patient complains of slurred speech, and leg swelling that is not new. He denies any facial droop, headache, fever, shortness of breath, chills, abdominal pain, changes in appetite, and vision changes. He notes that movement worsens his symptoms. Source of History: patient Onset: this morning Position: other (global) Quality: other (weakness) Timing: constant Modifying Factors (Worsening): movement Modifying Factors (Relieving): other (none) Associated Symptoms: No SOB, No abdominal pain, No chills, No fevers, No headache Note: The patient complains of slurred speech and leg swelling that is not new. He denies any facial droop, changes in appetite, and vision changes. Review of Systems See HPI for pertinent positives & negatives. A total of 10 systems reviewed and were otherwise negative. 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 Social History Smoking Status: Former Smoker Marital Status: Occupation Status: retired Current/Historical Medications Scheduled Allopurinol (Zyloprim), 300 MG PO QAM Aspirin (Aspirin Ec), 81 MG PO QAM Carvedilol (Coreg), 3.125 MG PO BID Clopidogrel (Plavix), 75 MG PO QAM Docusate Sodium (Docusate Sodium), 1 CAP PO BID Finasteride (Proscar), 5 MG PO QAM Furosemide (Lasix), 120 MG PO TID Glipizide Xl (Glucotrol Xl), 5 MG PO DAILYBB Glipizide Xl (Glucotrol Xl), 10 MG PO DAILYBB Isosorbide Mononitrate Ext Rel (Imdur Ext Rel), 60 MG PO QAM Lisinopril (Lisinopril), 2.5 MG PO QAM Metolazone (Zaroxolyn), 2.5 MG PO 2XWK Potassium Ext Rel (Klor-Con), 40 MEQ PO TID Senna (Senna Lax), 8.6 MG PO QAM Sertraline (Zoloft), 50 MG PO QAM Sitagliptin (Januvia), 50 MG PO QAM Scheduled PRN Ipratropium-Albuterol (Duoneb), 1 TREATMENT INH Q6 PRN for SOB/Wheezing Polyethylene Glycol 3350 (Miralax), 17 GM PO QAM PRN for Constipation Triamcinolone Acet (Aristocort 0.1%), 1 APPLN TOP BID PRN for Affected Skin Folds Allergies Coded Allergies: Zolpidem (Verified Allergy, Severe, SOB, MUSCLES "LOCK UP" PER [facility], ) DELIRIUM. Confusion. Insomnia. Insulin Aspart (Verified Adverse Reaction, Intermediate, REDDENED RASH ALL OVER BODY, 11/03/16) Insulin Glargine (Verified Adverse Reaction, Intermediate, REDDENED RASH ALL OVER BODY, 11/03/16) Amoxicillin (Verified Adverse Reaction, Unknown, NIGHTMARES, 11/03/16) Physical Exam Vital Signs Date Time Temp Pulse Resp B/P Pulse Ox O2 Delivery O2 Flow Rate FiO2 11/03/16 18:50 87/48 11/03/16 18:47 76 19 100 11/03/16 18:46 84/51 11/03/16 18:42 80 20 94/51 100 11/03/16 18:37 78 21 100 11/03/16 18:35 95/51 11/03/16 18:32 80 21 100 11/03/16 18:30 78/65 11/03/16 18:27 79 27 100 11/03/16 18:26 91/49 11/03/16 18:22 78 17 100 11/03/16 18:20 83/40 11/03/16 18:17 76 22 99 11/03/16 18:15 83/47 11/03/16 18:12 75 21 100 11/03/16 18:11 86/50 11/03/16 18:07 75 23 11/03/16 18:02 72 15 93 11/03/16 18:01 86/41 11/03/16 17:57 66 17 95 11/03/16 17:52 65 21 96 11/03/16 17:47 66 20 96 11/03/16 17:42 66 20 97 11/03/16 17:37 68 24 98 11/03/16 17:32 68 23 96 11/03/16 17:31 102/58 11/03/16 17:27 65 18 98 11/03/16 17:22 69 18 96 11/03/16 17:17 68 16 96 11/03/16 17:13 67 21 103/51 97 Room Air 11/03/16 17:12 68 24 103/51 97 11/03/16 16:27 78 20 11/03/16 16:22 67 20 11/03/16 16:17 66 16 11/03/16 16:12 67 19 98 11/03/16 16:07 68 14 97 11/03/16 16:02 68 15 98 11/03/16 15:57 77 16 11/03/16 15:52 66 20 95 11/03/16 15:47 65 25 96 11/03/16 15:14 36.3 68 18 96/51 96 Room Air 11/03/16 15:05 96/51 Physical Exam GENERAL: Patient is elderly and tired appearing and in no acute distress. HEENT: No acute trauma, normocephalic atraumatic, mucous membranes moist, no nasal congestion, no scleral icterus. NECK: No stridor, no adenopathy, no meningismus, trachea is midline. LUNGS: Crackles and decreased breath sounds in bilateral bases. HEART: Regular rate and rhythm. No rubs, gallops appreciated. Mild systolic murmur. ABDOMEN: Soft, nontender, bowel sounds positive, no masses appreciated, no peritonitis. BACK: No midline tenderness, no CVA tenderness EXTREMITIES: No cyanosis. Edema in bilateral lower legs with peripheral vascular congestion. Difficulty moving right shoulder due to a chronic shoulder disorder. 5/5 strength of extremities. NEUROLOGIC: Alert and oriented, no acute motor or sensory deficits, no focal weakness, cranial nerves grossly intact. SKIN: No rash, no jaundice, no diaphoresis. Medical Decision & Procedures ER Provider Diagnostic Interpretation: Radiology results and stated below per my review and radiologist interpretation: CHEST ONE VIEW PORTABLE FINDINGS: Moderate cardiomegaly. Prior median sternotomy. Hilar prominence pulmonary vasculature. IMPRESSION: Early congestive heart failure Electronically signed by: Adam Bond M.D. 11/03/2016 4:02 PM Dictated Date/Time: 11/03/2016 4:[address] OF THE HEAD WITHOUT CONTRAST TECHNIQUE: Helical axial images of the head were obtained without IV contrast. Automated exposure control was utilized for the study. FINDINGS: No acute intracranial hemorrhage, midline shift or mass effect is present. Mild ventricular dilatation is likely due to atrophy. The basilar cisterns are patent. There are no extra-axial collections. Brewer-white differentiation is maintained. There are no findings to suggest acute dural sinus thrombosis or acute territorial infarct. There is extensive intracranial vascular calcification. There are no calvarial abnormalities. Visualized portions of the sinuses and mastoid air cells are clear. White matter hypodensities suggest small vessel disease. IMPRESSION: No acute intracranial findings. Electronically signed by: Cristian Mckeon M.D. 11/03/2016 4:49 PM Dictated Date/Time: 11/03/2016 4:46 PM Laboratory Results 11/03/16 16:20 Red Blood Count 3.53, Mean Corpuscular Volume 91.8, Mean Corpuscular Hemoglobin 31.7, Mean Corpuscular Hemoglobin Concent 34.6, Mean Platelet Volume 10.3, Neutrophils (%) (Auto) 64.8, Lymphocytes (%) (Auto) 14.7, Monocytes (%) (Auto) 13.9, Eosinophils (%) (Auto) 5.7, Basophils (%) (Auto) 0.6, Neutrophils # (Auto ) 6.01, Lymphocytes # (Auto) 1.37, Monocytes # (Auto) 1.29, Eosinophils # (Auto ) 0.53, Basophils # (Auto) 0.06 11/03/16 16:20 Test 11/03/16 16:20 11/03/16 17:40 11/03/16 18:15 White Blood Count 9.29 K/uL (4.8-10.8) Red Blood Count 3.53 M/uL (4.7-6.1) Hemoglobin 11.2 g/dL (14.0-18.0) Hematocrit 32.4 % (42-52) Mean Corpuscular Volume 91.8 fL (80-100) Mean Corpuscular Hemoglobin 31.7 pg (25-34) Mean Corpuscular Hemoglobin Concent 34.6 g/dl (32-36) Platelet Count 222 K/uL (130-400) Mean Platelet Volume 10.3 fL (7.4-10.4) Neutrophils (%) (Auto) 64.8 % Lymphocytes (%) (Auto) 14.7 % Monocytes (%) (Auto) 13.9 % Eosinophils (%) (Auto) 5.7 % Basophils (%) (Auto) 0.6 % Neutrophils # (Auto) 6.01 K/uL (1.4-6.5) Lymphocytes # (Auto) 1.37 K/uL (1.2-3.4) Monocytes # (Auto) 1.29 K/uL (0.11-0.59) Eosinophils # (Auto) 0.53 K/uL (0-0.5) Basophils # (Auto) 0.06 K/uL (0-0.2) RDW Standard Deviation 50.3 fL (36.4-46.3) RDW Coefficient of Variation 14.8 % (11.5-14.5) Immature Granulocyte % (Auto) 0.3 % Immature Granulocyte # (Auto) 0.03 K/uL (0.00-0.02) Prothrombin Time 11.0 SECONDS (9.0-12.0) Prothromb Time International Ratio 1.0 (0.9-1.1) Activated Partial Thromboplast Time 32.7 SECONDS (21.0-31.0) Partial Thromboplastin Ratio 1.3 Anion Gap 11.0 mmol/L (3-11) Est Creatinine Clear Calc Drug Dose 12.1 ml/min Estimated GFR () 11.2 Estimated GFR (Non- 9.6 BUN/Creatinine Ratio 23.5 (10-20) Calcium Level 9.2 mg/dl (8.5-10.1) Phosphorus Level 8.5 mg/dl (2.5-4.9) Magnesium Level 3.5 mg/dl (1.8-2.4) Total Bilirubin 0.4 mg/dl (0.2-1) Direct Bilirubin < 0.1 mg/dl (0-0.2) Aspartate Amino Transf (AST/SGOT) 29 U/L (15-37) Alanine Aminotransferase (ALT/SGPT) 27 U/L (12-78) Alkaline Phosphatase 83 U/L (45-117) Total Creatine Kinase 221 U/L (39-308) Creatine Kinase MB 13.3 ng/ml (0.5-3.6) Creatine Kinase MB Ratio 6.0 (0-3.0) Troponin I < 0.015 ng/ml (0-0.045) Pro-B-Type Natriuretic Peptide 4592 pg/ml (0-1800) Total Protein 7.7 gm/dl (6.4-8.2) Albumin 3.5 gm/dl (3.4-5.0) Lipase 404 U/L (73-393) Urine Color YELLOW Urine Appearance TURBID (CLEAR) Urine pH 6.5 (4.5-7.5) Urine Specific [place] 1.010 (1.000-1.030) Urine Protein TRACE (NEG) Urine Glucose (UA) NEG (NEG) Urine Ketones NEG (NEG) Urine Occult Blood 2+ (NEG) Urine Nitrite NEG (NEG) Urine Bilirubin NEG (NEG) Urine Urobilinogen NEG (NEG) Urine Leukocyte Esterase LARGE (NEG) Urine WBC (Auto) >30 /hpf (0-5) Urine RBC (Auto) 10-30 /hpf (0-4) Urine Hyaline Casts (Auto) 1-5 /lpf (0-5) Urine Epithelial Cells (Auto) 5-10 /lpf (0-5) Urine Bacteria (Auto) NEG (NEG) Urine Yeast (Auto) (NONE PRSENT) Bedside Glucose 266 mg/dl (70-99) Laboratory results as reviewed by me. Medications Administered Medications (Trade) Dose Ordered Sig/Vijay Route Start Time Stop Time Status Last Admin Dose Admin Dextrose 50 ml 50 ml STK-MED ONCE .ROUTE 11/03/16 17:49 11/03/16 17:50 DC 11/03/16 17:49 100 ML Sodium Chloride (Nss 500ml) 500 ml @ 999 mls/hr Q31M STAT IV 11/03/16 17:45 11/03/16 18:15 DC 11/03/16 17:45 999 MLS/HR Calcium Gluconate (Calcium Gluconate 10%) 1,000 mg STK-MED ONCE IV 11/03/16 18:01 11/03/16 18:02 DC 11/03/16 18:13 1,000 MG Ceftriaxone Sodium (Rocephin Inj) 1 gm NOW STAT IV 11/03/16 18:02 11/03/16 18:04 DC 11/03/16 18:02 1 GM Sodium Bicarbonate (Sodium Bicarbonate 8.4% Inj) 50 ml STK-MED ONCE IV 11/03/16 18:02 11/03/16 18:03 DC 11/03/16 18:13 50 ML Insulin Human Regular 10 units 10 units STK-MED ONCE .ROUTE 11/03/16 18:03 11/03/16 18:04 DC 11/03/16 18:03 10 UNITS Sodium Chloride (Nss 500ml) 500 ml @ 999 mls/hr Q31M STAT IV 11/03/16 18:22 11/03/16 18:52 DC 11/03/16 18:22 999 MLS/HR ECG Indication: weakness Rate (beats per minute): 66 Rhythm: normal sinus Findings: nonspecific-ST abn, no ectopy, other (interventricular block) Change: EKG #2: Sinus Rhythm, 80, No ectopy, Nonspecific-ST abnormalities throughout. Similar to previous. ED Course 1500: The patient was evaluated by the resident in room B7. A complete history and physical exam was performed. 1542: I evaluated the patient and a physical exam was performed by myself. 1708: I reevaluated the patient. He is stable and doing well. 1745: See chart for medications. 1752: I reevaluated the patient and talked to his pediatric assistant about the findings and plan. We discussed the severity of his issue. 180: Discussed the patient's case with Dr. Bravo of [facility]. The patient will be evaluated for further treatment and disposition. 182: Upon reevaluation, the patient is doing well. Discussed results and treatment plan with the patient. He verbalized understanding and agreement with the treatment plan. The patient will be evaluated for further management. 182: I reevaluated the patient. He is hypotensive and lightheaded post- medication. 1830: I spoke to Dr. Nice on Nephrology and updated him on the patient's case. He agrees with the treatment plan. 1900: I reevaluated the patient. He is still mildly hypotensive and Dr. Bravo is managing. Medical Decision Differential: Sepsis, Infectious (UTI/Pneumonia/Meningitis/etc), Metabolic/ Electrolyte Abnormality, Cardiac, Hepatic, Endocrine, Toxicologic, Neurologic, amongst other pathologies entertained. 85 yr old male with chronic renal insufficiency, chf issues and chronic weakness arrives for evaluation of worsening weakness, transient slurred speech earlier, and unable to stand at home. EKG with RBBB without acute stemi. CXR with mild congestion and sats doing alright. Exam without neuro deficits and he would not be TPA/Stroke alert candidate as resolved slurred speech and last known well > 6 hours [employer]. He is without significant complaint other than generalized weakness. Labs reveal acute hyperK in setting of acute on chronic renal failure. Hypoglycemia consistent with Glipizide usage in acute renal failure. Faint if any T wave peaking on EKG. Vitals initially stable. UA consistent with UTI. Calcium, Bicarb, D50 x 2, Insulin and 500ml NSS given initially as well as Rocephin for his UTI. Suspect UTI may have put him in to some of this, though the increased lasix in setting of fluid restrictions likely also at issue. Given he appears dry by exam, is very thirsty and BUN 118 I feel he is pre-renal thus after initial bolus 500ml, given another 500ml as BP started trending down post medications. Noted some lightheadedness in setting of hypotn for which repeat EKG done without acute change. He is DNR, has reasonable access and is without significant complaint at this time. Hospitalist in to evaluate for further treatment/management. Consults Time Called: 1804 Consulting Physician: Dr. Shelly Dodson Returned Call: [phone] Discussed the patient's case with Dr. Bravo of [facility]. The patient will be evaluated for further treatment and disposition. Additional Consults: Time Called: 182 Consulted Physician: Dr. Nice - Nephrology Returned Call: [phone] Additional Comments: I spoke to Dr. Nice on Nephrology and updated him on the patient's case. He agrees with the treatment plan. Impression Primary Impression: Acute renal failure Additional Impressions: Hyperkalemia Hypoglycemia Altered mental status Generalized weakness Urinary tract infection Critical Care I have personally spent greater than 45 minutes of critical care time in the direct management of this patient. This was a life/limb threatening event. This includes time spent evaluating patient, direct bedside care, chart review, placing orders, interpretation of diagnostic studies, discussion with consultants, patient, and family members, as well as other required patient management activities. This 45 minutes is in excess of all separately billable procedures. Scribe Attestation The scribe's documentation has been prepared under my direction and personally reviewed by me in its entirety. I confirm that the note above accurately reflects all work, treatment, procedures, and medical decision making performed by me. Departure Information Dispostion Being Evaluated By Hospitalist Referrals Krista Tran,C.R.N.P. (PCP) Patient Instructions My [facility] Problem Qualifiers Primary Impression: Acute renal failure Acute renal failure type: unspecified Qualified Codes: N17.9 - Acute kidney failure, unspecified Additional Impressions: Altered mental status Altered mental status type: transient alteration of awareness Qualified Codes : R40.4 - Transient alteration of awareness Urinary tract infection Urinary tract infection type: acute cystitis Hematuria presence: without hematuria Qualified Codes: N30.00 - Acute cystitis without hematuria
--- NOTE | 2016-11-03 16:51 | DIAGNOSTIC IMAGING REPORT ---
CT OF THE HEAD WITHOUT CONTRAST CLINICAL HISTORY: Weakness. COMPARISON STUDY: No previous studies for comparison. CT DOSE: 537.48 mGy.cm TECHNIQUE: Helical axial images of the head were obtained without IV contrast. Automated exposure control was utilized for the study. FINDINGS: No acute intracranial hemorrhage, midline shift or mass effect is present. Mild ventricular dilatation is likely due to atrophy. The basilar cisterns are patent. There are no extra-axial collections. Brewer-white differentiation is maintained. There are no findings to suggest acute dural sinus thrombosis or acute territorial infarct. There is extensive intracranial vascular calcification. There are no calvarial abnormalities. Visualized portions of the sinuses and mastoid air cells are clear. White matter hypodensities suggest small vessel disease. IMPRESSION: No acute intracranial findings. Electronically signed by: Cristian Mckeon M.D. 11/03/2016 4:49 PM Dictated Date/Time: 11/03/2016 4:46 PM
[2016-11-03 16:56] LABS: BASO % 0.6 %; BASO ABS # 0.06 K/uL (0-0.2); COMPLETE YES; EOS % 5.7 %; HEMATOCRIT 32.4 % (42-52); IG% 0.3 %; LYMPH % 14.7 %; LYMPH ABS # 1.37 K/uL (1.2-3.4); MEAN CELL VOLUME 91.8 fL (80-100); MEAN CORPUSCULAR HEMOGLOBIN 31.7 pg (25-34); MEAN CORPUSCULAR HGB CONC 34.6 g/dl (32-36); MEAN PLATELET VOLUME 10.3 fL (7.4-10.4); MONO % 13.9 %; NEUT % 64.8 %; PLATELET COUNT 222 K/uL (130-400); RED BLOOD COUNT 3.53 M/uL (4.7-6.1); WHITE BLOOD COUNT 9.29 K/uL (4.8-10.8)
[2016-11-03 17:08] LABS: PARTIAL THROMBOPLASTIN RATIO 1.3
[2016-11-03 17:43] LABS: ALKALINE PHOSPHATASE 83 U/L (45-117); ALT/SGPT 27 U/L (12-78); AST/SGOT 29 U/L (15-37); BLOOD UREA NITROGEN 118 mg/dl (7-18); BUN/CREATININE RATIO 23.5 (10-20); CALCIUM 9.2 mg/dl (8.5-10.1); CARBON DIOXIDE 25 mmol/L (21-32); CHLORIDE 92 mmol/L (98-107); GLUCOSE 47 mg/dl (70-99); MAGNESIUM 3.5 mg/dl (1.8-2.4); PHOSPHORUS 8.5 mg/dl (2.5-4.9); POTASSIUM 6.7 mmol/L (3.5-5.1); SODIUM 128 mmol/L (136-145)
[2016-11-03] MEDS ORDERED: SODIUM CHLORIDE 0.9% 500ML 500 ML IV STA ×2 (17:45→18:22)
[2016-11-03] MEDS ORDERED: DEXTROSE 50% 50 ML SYR IV STA (17:45)
[2016-11-03] MEDS ORDERED: CALCIUM GLUCONATE 10% 10 ML VIAL IV STA (17:45)
[2016-11-03] MEDS ORDERED: SODIUM BICARB 8.4% INJ 50 MEQ/50 ML SYR IV STA (17:45)
[2016-11-03] MEDS ORDERED: INSULIN HUMAN REGULAR IV STA (17:45)
[2016-11-03] MEDS ORDERED: DEXTROSE 50% 50 ML SYR ONE (17:49)
[2016-11-03 17:54] LABS: URINE APPEARANCE TURBID (CLEAR); URINE BILIRUBIN NEG (NEG); URINE COLOR YELLOW; URINE NITRITE NEG (NEG); URINE PH 6.5 (4.5-7.5); UROBILINOGEN NEG (NEG); ZZUR CULT IF INDIC CLEAN CATCH YES
[2016-11-03 17:58] LABS: MANUAL MICROSCOPIC REQUIRED? NO; REVIEW REQ? YES
[2016-11-03] MEDS ORDERED: CALCIUM GLUCONATE 10% 10 ML VIAL IV ONE (18:01)
[2016-11-03] MEDS ORDERED: SODIUM BICARB 8.4% INJ 50 MEQ/50 ML SYR IV ONE (18:02)
[2016-11-03] MEDS ORDERED: CEFTRIAXONE SOD INJ 1 GM ADDVIAL IV STA (18:02)
[2016-11-03] MEDS ORDERED: NovoLIN-R INSULIN PER UNIT CHARGE ONE (18:03)
[2016-11-03] MEDS ORDERED: TRIAMCINOLONE ACET 0.1% CR 15 GM TUBE EXT PRN (19:00)
[2016-11-03] MEDS ORDERED: ALBUT/IPRATROP 3MG/0.5MG NEB 3 ML VIAL INH PRN (19:00)
[2016-11-03] MEDS ORDERED: ONDANSETRON INJ 2 MG/ML 2 ML VIAL IV PRN (19:00)
[2016-11-03] MEDS ORDERED: GLUCOSE 40% GEL 15 GM TUBE PO PRN (21:15)
[2016-11-03] MEDS ORDERED: GLUCOSE 10 TABS/TUBE PO PRN (21:15)
[2016-11-03] MEDS ORDERED: GLUCAGON FOR INJ 1 MG VIAL SQ PRN (21:15)
--- NOTE | 2016-11-03 21:24 | HISTORY & PHYSICAL EXAMINATION ---
DATE OF ADMISSION: 11/03/2016 PRIMARY CARE PHYSICIAN: Dr Gomez, [place]. CHIEF COMPLAINT: Generalized weakness with some slurred speech, since noon today. HISTORY OF PRESENT COMPLAINT: He is an 85-year-old obese male with significant past medical history including CAD, history of systolic heart failure secondary to CAD, asthma exacerbation, chronic kidney disease stage IV, type 2 diabetes on oral hyperglycemic agents, history of PR, hyperlipidemia ,obstructive sleep apnea, apparently was in [facility] as a respite care. He was having some slowing of his activity in [facility] with some leg swelling and some redness involving both the legs. He went home yesterday with his friend to leave at home. He has been complaining of generalized weakness and this noon he was so weak, to stand on his feet. At the same time, the caregiver, his friend noted to have slurred speech. The pet caregiver called his primary care doctor and was advised to come into the hospital for evaluation. In the ER, he was weak and lethargic, but otherwise no acute distress. He was afebrile with a blood pressure of 103/51 and saturation 97% on room air, he was noted to have significantly abnormal blood test with a BUN and creatinine of 118/5.0. Significant increased compared with his prior and potassium of 6.7. He also had a random glucose of 47. From that point, he received intravenous glucose, dextrose, bicarbonate and also calcium gluconate and also glucose and was advised for admission. He also has been complaining of some pain with passing urine, but no documented fever. His urine looked dirty on examination, he was started on intravenous ceftriaxone as well. The case was discussed with chin strap maker network contract manager by the ER physician, advised to give some IV fluid which he is still getting and we will admit the patient to telemetry unit and go from here. PAST MEDICAL HISTORY: Significant for CAD status post cardiac stent placement, years ago; history of systolic heart failure secondary to ischemic cardiomyopathy, asthma exacerbation; CKD, stage IV; type 2 diabetes, on oral hypoglycemic agent; hypertension, hyperlipidemia, history of CABG, prostate hypertrophy, obstructive sleep apnea and also history of shingles. PAST SURGICAL HISTORY: Coronary artery bypass in 1982, had PTCA in 2005, tonsillectomy and adenoid surgery under the age of 10. FAMILY HISTORY: Nothing contributory. Mother at 73 and father did have arteriosclerosis and at the age of 54. Mother had pancreatic cancer too. SOCIAL HISTORY: He is single. He has 4 children. He lives with his friend, who morally takes care of him. He quit smoking in 1968, he does not use any alcohol and he has been reasonably ambulant but since this noon, he cannot move at all due to weakness and tiredness. REVIEW OF SYSTEMS: A total 10-point review of system unremarkable except for those mentioned in history of present complaint. ALLERGIES: HE IS ALLERGIC TO ZOLPIDEM, INSULIN AND ALSO AMOXICILLIN. MEDICATIONS: As an outpatient, he has been on allopurinol 300 mg daily, furosemide 120 mg t.i.d., lisinopril 2.5 mg daily, metolazone 2.5 mg 2 times a week, potassium 40 mEq 3 times daily; glipizide XL 5 mg daily, glipizide XL 10 mg, so 15 mg in total and Januvia 50 mg in the morning, aspirin 81 mg daily, Coreg 3.125 mg b.i.d., Plavix 75 mg in the morning, docusate sodium 100 mg b.i.d., Proscar 5 mg, DuoNeb nebulized solution as directed, isosorbide mononitrate 60 mg daily, MiraLax 17 grams in the morning, senna 8.6 grams in the morning, Zoloft 50 mg in the morning and Aristocort as directed. PHYSICAL EXAMINATION: GENERAL: On examination in the Emergency Room, he was not having any acute distress. VITAL SIGNS: Temperature 36.3, pulse of 67, blood pressure 103/51, saturation 97% on room air. HEENT: Unremarkable, he looks pale. NECK: Supple. No JVD. CHEST: Clear to auscultate. HEART: S1, S2 with a 2/6 systolic murmur. ABDOMEN: Soft, benign, nontender, no organomegaly. Bowel sounds present. EXTREMITIES: 1+ edema bilaterally. Some redness involving the lower extremities but no documented infection. CENTRAL NERVOUS SYSTEM: He was alert, awake, oriented. He was generally weak and lethargic, but no significant focal deficit noted. LABORATORY DATA: Noted today white count was 9.29, H\T\H 11.2/32.4, platelets was 222. Sodium 128, potassium 6.7, chloride 92, BUN 118, carbon dioxide 25, creatinine 5.0, random glucose was 47. Phosphorus 8.5, magnesium 3.5. Liver function tests unremarkable. CK, CK-MB slightly elevated, but troponin less than 0.015. BNP was 4592, lipase 404. INR 1.0, PTT ratio 1.3. UA examination - occult blood 2+, leukocyte esterase large, white count more than 30 and it was sent for culture. IMAGING DATA: Chest x-ray - early congestive failure. CT of the head - no acute intracranial findings. EKG was in sinus rhythm with first-degree heart block, rate of 80, left axis deviation, nonspecific intraventricular block with ST-T wave changes. No significant change compared with EKG of 16 of September. IMPRESSION AND PLAN: 1. Acute renal failure secondary to chronic renal impairment. The acute renal failure is complicated by use of diuretics and also metolazone and CHARO inhibitors. He will be given an adequate amount of IV fluid and will hold his diuretics and lisinopril for now. Nephrology consultation. He will be admitted to telemetry unit.May need to be transferred to ICU if the condition deteriorates. 2. Hyperkalemia secondary to acute renal impairment and chronic potassium ingestion. He received intravenous calcium gluconate, intravenous dextrose and insulin and also bicarbonate to improve the potassium. We will repeat potassium level at around 10:00. There are no EKG changes with hyperkalemia. 3. Hypoglycemia. He is known to have diabetes type 2. He has been taking glipizide, may be he has not been eating enough, so will hold his medications right now and he received dextrose in the Emergency Room. Continue with diabetic diet and sliding scale insulin coverage as needed. 4. Coronary artery disease status post coronary artery bypass graft and a stent placement. Continue with his current medications but holding CHARO inhibitor. He does not have any acute symptoms at this time. His troponin seems to be normal. 5. Urinary tract infection. He may have a urinary tract infection. Will start with intravenous Rocephin while in the hospital. 6. Sleep apnea. Seems to be stable. Will use CPAP, if he has been using at home. 7. Hypertension. The patient is hypotension, may be secondary to intravascular dehydration. Hold his lisinopril, but continue with Coreg and give IV fluid to improve. 8. Gastrointestinal prophylaxis, Protonix. 9. Deep venous thrombosis prophylaxis with subcutaneous heparin. 10. Code status. Discussed with the patient and reviewed the Documents He will be a DNR. Discussed with the Caregiver His son is on the way Condition critical .Was admitted to Tele In my clinical judgment, the beneficiary meets criteria as per CMS for 2-midnight stay in the hospital. CECILY
[2016-11-03 21:40] VITALS: BP 110/65; PULSE 75; TEMP 36.4; O2SAT 100; BMI 34.6
[2016-11-03 21:58] VITALS: BP 76/34
[2016-11-03] MEDS: HEPARIN SOD 5000 UNIT/0.5 ML CARP SQ SCH (22:05)
[2016-11-03] MEDS: CARVEDILOL 3.125 MG TAB PO SCH (22:05)
[2016-11-03] MEDS: DOCUSATE SODIUM 100 MG CAP PO SCH (22:05)
[2016-11-03] MEDS: SODIUM CHLORIDE 0.9% 1000ML 1,000 ML IV SCH ×2 (22:21→23:02)
[2016-11-03] MEDS ORDERED: SODIUM CHLORIDE 0.9% 500ML 500 ML IV SCH (22:30)
[2016-11-03 22:44] LABS: CALCIUM 8.7 mg/dl (8.5-10.1)
[2016-11-03] MEDS ORDERED: AZTREONAM CONSULT ACTIVE PRN ×2 (22:45)
[2016-11-03] MEDS ORDERED: AZTREONAM IV 2,000 MG in DEXTROSE 5% 100ML 100 ML IV SCH (22:45)
[2016-11-03] MEDS ORDERED: VANCOMYCIN CONSULT ACTIVE PRN (22:45)
[2016-11-03 22:51] LABS: BUN/CREATININE RATIO 26.5 (10-20); CREATININE 4.5 mg/dl (0.60-1.40); MAGNESIUM 3.3 mg/dl (1.8-2.4)
[2016-11-03] MEDS: DEXTROSE 50% 50 ML SYR IV PRN (22:54)
[2016-11-03] MEDS ORDERED: VANCOMYCIN INJ 2,000 MG in SODIUM CHLORIDE 0.9% 500ML 500 ML IV SCH (23:00)
[2016-11-03 23:27] VITALS: BP 115/40; PULSE 67; TEMP 36.3; O2SAT 100
[2016-11-03] MEDS ORDERED: D5W AND NSS 1,000 ML IV SCH (23:45)
--- NOTE | 2016-11-03 23:56 | Critical Care Consultation ---
Critical Care Consultation Date of Consultation: November 03, 2016. Attending Physician: Jj Mejia MD Reason for Consultation: Increased Hypotension History of Present Illness Axel Aparicio is an 85-year-old male with a past medical history significant for coronary artery disease, chronic kidney disease, diabetes on oral hyperglycemic agents, obstructive sleep apnea, history of IN and hyperlipidemia. He is a resident at [facility]. This evening I received a phone call requesting that Mr. Aparicio be transported to the ICU as he was having increasing hypotension with systolic pressures in the 70s to 80s. He had been admitted for hyperkalemia and hypoglycemia. Upon arriving to his room the patient was repetitively saying water. He would only momentarily focus and answer any questions with 1-2 words. He was able to tell me he had a son named "Sylvain." When asked "Can Sylvain makes decisions for you"; he replied, "yes." Prior to my being contacted for the care of this patient he had already undergone treatment for the hyperkalemia. However, his glucose levels were fluctuating significantly. In all he received IV glucose, dextrose, bicarbonate and calcium gluconate. At this time he was being treated for a possible urinary tract infection and had received ceftriaxone. Dr. Nice history to this patient for an extended period of time was consult in one his care and has been following closely as well. The patient was brought to the ICU , where it was noted that his mental status had vastly improved after both fluid and IV glucose. Patient was placed on BiPAP for his obstructive sleep apnea as well as his comments of needing air. He was now speaking in complete sentences and was alert and oriented. His blood pressure had improved systolically to the mid 120s to low 100s. Dr. Nice, in my presence, had a significantly long conversation 2 with the patient's son, Sylvain. It was decided to follow the patient's wishes of DO NOT RESUSCITATE/DO NOT INTUBATE; however, invasive lines and monitoring including emergent dialysis were permissible per family. At this time the patient has not undergone these procedures due to a sudden improvement in condition. Patient denies fever, chills, cough, chest pain, awareness of tachyarrhythmias, nausea, vomiting. He states that he did recently experience dysuria; but no changes in his bowel habits. Adams catheter was placed in the ICU with clear urine being seen upon placement. 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 Confusion. Insomnia. Insulin Aspart (Verified Adverse Reaction, Intermediate, REDDENED RASH ALL OVER BODY, 11/03/16) Insulin Glargine (Verified Adverse Reaction, Intermediate, REDDENED RASH ALL OVER BODY, 11/03/16) Amoxicillin (Verified Adverse Reaction, Unknown, NIGHTMARES, 11/03/16) Home Medications Scheduled Allopurinol (Zyloprim), 300 MG PO QAM Aspirin (Aspirin Ec), 81 MG PO QAM Carvedilol (Coreg), 3.125 MG PO BID Clopidogrel (Plavix), 75 MG PO QAM Docusate Sodium (Docusate Sodium), 1 CAP PO BID Finasteride (Proscar), 5 MG PO QAM Furosemide (Lasix), 120 MG PO TID Glipizide Xl (Glucotrol Xl), 5 MG PO DAILYBB Glipizide Xl (Glucotrol Xl), 10 MG PO DAILYBB Isosorbide Mononitrate Ext Rel (Imdur Ext Rel), 60 MG PO QAM Lisinopril (Lisinopril), 2.5 MG PO QAM Metolazone (Zaroxolyn), 2.5 MG PO 2XWK Potassium Ext Rel (Klor-Con), 40 MEQ PO TID Senna (Senna Lax), 8.6 MG PO QAM Sertraline (Zoloft), 50 MG PO QAM Sitagliptin (Januvia), 50 MG PO QAM Scheduled PRN Ipratropium-Albuterol (Duoneb), 1 TREATMENT INH Q6 PRN for SOB/Wheezing Polyethylene Glycol 3350 (Miralax), 17 GM PO QAM PRN for Constipation Triamcinolone Acet (Aristocort 0.1%), 1 APPLN TOP BID PRN for Affected Skin Folds Current Inpatient Medications Current Inpatient Medications Medications (Trade) Dose Ordered Sig/Vijay Route Start Time Stop Time Status Last Admin Dose Admin Heparin Sodium (Porcine) (Heparin Sq 5000 Unit/0.5ml) 5,000 unit Q8 SQ 11/03/16 22:00 12/03/16 21:59 11/03/16 22:05 5,000 UNIT Acetaminophen (Tylenol Tab) 650 mg Q4H PRN PO 11/03/16 19:00 12/03/16 18:59 Ondansetron HCl (Zofran Inj) 4 mg Q6H PRN IV 11/03/16 19:00 12/03/16 18:59 Aspirin (Ecotrin Tab) 81 mg QAM PO 11/04/16 09:00 12/04/16 08:59 Carvedilol (Coreg Tab) 3.125 mg BID PO 11/03/16 21:00 12/03/16 20:59 Clopidogrel Bisulfate (plAVix TAB) 75 mg QAM PO 11/04/16 09:00 12/04/16 08:59 Docusate Sodium (coLACE CAP) 100 mg BID PO 11/03/16 21:00 12/03/16 20:59 Finasteride (Proscar Tab) 5 mg QAM PO 11/04/16 09:00 12/04/16 08:59 Albuterol/ Ipratropium (Duoneb) 3 ml Q6 PRN INH 11/03/16 19:00 12/03/16 18:59 Isosorbide Mononitrate (Imdur Ext Rel Tab) 60 mg QAM PO 11/04/16 09:00 12/04/16 08:59 Senna (Senokot Tab) 8.6 mg QAM PO 11/04/16 09:00 12/04/16 08:59 Sertraline HCl (Zoloft Tab) 50 mg QAM PO 11/04/16 09:00 12/04/16 08:59 Triamcinolone Acetonide (Kenalog 0.1% Cream) 1 appln BID PRN EXT 11/03/16 19:00 12/03/16 18:59 Polyethylene (Miralax Powder Packet) 17 gm DAILY PRN PO 11/03/16 19:30 12/03/16 19:29 Insulin Aspart (novoLOG ASPART) SLIDING SCALE G... ACHS SC 11/04/16 07:00 12/04/16 06:59 Glucose (Glucose 40% Gel) 15-30 GRAMS 15 GRAMS... UD PRN PO 11/03/16 21:15 12/03/16 21:14 Glucose (Glucose Chew Tab) 4-8 Tablets 4 Tabl... UD PRN PO 11/03/16 21:15 12/03/16 21:14 Dextrose (Dextrose 50% 50ML Syringe) 25-50ML OF 50% DW IV FOR... UD PRN IV 11/03/16 21:15 12/03/16 21:14 11/03/16 22:54 50 ML Glucagon 1 mg 1 mg UD PRN SQ 11/03/16 21:15 12/03/16 21:14 Aztreonam 1000 mg/ Dextrose 110 ml @ 100 mls/hr Q8H IV 11/04/16 08:00 11/14/16 07:59 Vancomycin HCl/ Sodium Chloride (Vancomycin Inj/ Nss 500ml) 540 ml @ 200 mls/hr TODAY@2300 IV 11/03/16 23:00 11/04/16 01:41 11/03/16 23:02 200 MLS/HR Vancomycin HCl (Consult) 1 ea UD PRN N/A 11/03/16 22:45 12/03/16 22:44 Aztreonam 1 ea 1 ea UD PRN N/A 11/03/16 22:45 12/03/16 22:44 Dextrose/Sodium Chloride (D5W And Nss) 1,000 ml @ 100 mls/hr Q10H IV 11/03/16 23:45 12/03/16 23:44 UNV Review of Systems 12 systems reviewed and negative other than previously mentioned in the HPI. Physical Exam Date Time Temp Pulse Resp B/P Pulse Ox O2 Delivery O2 Flow Rate FiO2 11/03/16 23:27 36.3 67 20 115/40 100 Nasal Cannula 4.0 11/03/16 21:58 76/34 11/03/16 21:40 36.4 75 20 110/65 100 Nasal Cannula 4.0 11/03/16 19:58 77 18 98/55 100 11/03/16 19:20 80 21 11/03/16 19:16 92/58 11/03/16 19:15 78 18 11/03/16 19:10 80 21 89/57 100 11/03/16 19:05 80 26 89/45 11/03/16 19:03 94/50 11/03/16 19:01 73/52 11/03/16 19:00 80 22 11/03/16 18:56 86/61 11/03/16 18:55 79 21 11/03/16 18:50 87/48 11/03/16 18:47 76 19 100 11/03/16 18:46 84/51 11/03/16 18:42 80 20 94/51 100 11/03/16 18:37 78 21 100 11/03/16 18:35 95/51 11/03/16 18:32 80 21 100 11/03/16 18:30 78/65 11/03/16 18:27 79 27 100 11/03/16 18:26 91/49 11/03/16 18:22 78 17 100 11/03/16 18:20 83/40 11/03/16 18:17 76 22 99 11/03/16 18:15 83/47 11/03/16 18:12 75 21 100 11/03/16 18:11 86/50 11/03/16 18:07 75 23 11/03/16 18:02 72 15 93 11/03/16 18:01 86/41 11/03/16 17:57 66 17 95 11/03/16 17:52 65 21 96 11/03/16 17:47 66 20 96 11/03/16 17:42 66 20 97 11/03/16 17:37 68 24 98 11/03/16 17:32 68 23 96 11/03/16 17:31 102/58 11/03/16 17:27 65 18 98 11/03/16 17:22 69 18 96 11/03/16 17:17 68 16 96 11/03/16 17:13 67 21 103/51 97 Room Air 11/03/16 17:12 68 24 103/51 97 11/03/16 16:27 78 20 11/03/16 16:22 67 20 11/03/16 16:17 66 16 11/03/16 16:12 67 19 98 11/03/16 16:07 68 14 97 11/03/16 16:02 68 15 98 11/03/16 15:57 77 16 11/03/16 15:52 66 20 95 11/03/16 15:47 65 25 96 11/03/16 15:14 36.3 68 18 96/51 96 Room Air 11/03/16 15:05 96/51 Vital Signs - as noted Laboratory Data - as noted Physical Exam in ICU General - NAD Eyes - PERRL, EOMI No icterus, gaze conjugate ENT - Mucosa dry, no lesions or candidiasis Neck - Supple, trachea midline, no masses or lymphadenopathy, no JVD or bruits, BiPap Mask in place Lungs - No paradoxical chest wall movement, coarse/diminished to auscultation bilaterally, no wheezes, rales, or rhonchi Heart - Reg rate and rhythm, 3/6 Systolic murmur, No rubs, clicks, or gallops appreciated Abdomen - BS present, no bruits noted, tympanic to percussion, soft, nontender, distended, no organomegaly Extremities - pedal edema noted, pedal pulses intact Neuro - A&O Strength extremities equal and appropriate bilaterally Reflexes: normal and equal CN:PERRL, EOMI, no facial asymmetry, uvula/tongue midline Laboratory Results Last 24 Hours Test 11/03/16 16:20 11/03/16 17:40 11/03/16 18:15 11/03/16 21:59 White Blood Count 9.29 K/uL Red Blood Count 3.53 M/uL Hemoglobin 11.2 g/dL Hematocrit 32.4 % Mean Corpuscular Volume 91.8 fL Mean Corpuscular Hemoglobin 31.7 pg Mean Corpuscular Hemoglobin Concent 34.6 g/dl Platelet Count 222 K/uL Mean Platelet Volume 10.3 fL Neutrophils (%) (Auto) 64.8 % Lymphocytes (%) (Auto) 14.7 % Monocytes (%) (Auto) 13.9 % Eosinophils (%) (Auto) 5.7 % Basophils (%) (Auto) 0.6 % Neutrophils # (Auto) 6.01 K/uL Lymphocytes # (Auto) 1.37 K/uL Monocytes # (Auto) 1.29 K/uL Eosinophils # (Auto) 0.53 K/uL Basophils # (Auto) 0.06 K/uL RDW Standard Deviation 50.3 fL RDW Coefficient of Variation 14.8 % Immature Granulocyte % (Auto) 0.3 % Immature Granulocyte # (Auto) 0.03 K/uL Prothrombin Time 11.0 SECONDS Prothromb Time International Ratio 1.0 Activated Partial Thromboplast Time 32.7 SECONDS Partial Thromboplastin Ratio 1.3 Sodium Level 128 mmol/L Potassium Level 6.7 mmol/L Chloride Level 92 mmol/L Carbon Dioxide Level 25 mmol/L Anion Gap 11.0 mmol/L Blood Urea Nitrogen 118 mg/dl Creatinine 5.00 mg/dl Est Creatinine Clear Calc Drug Dose 12.1 ml/min Estimated GFR () 11.2 Estimated GFR (Non- 9.6 BUN/Creatinine Ratio 23.5 Random Glucose 47 mg/dl Calcium Level 9.2 mg/dl Phosphorus Level 8.5 mg/dl Magnesium Level 3.5 mg/dl Total Bilirubin 0.4 mg/dl Direct Bilirubin < 0.1 mg/dl Aspartate Amino Transf (AST/SGOT) 29 U/L Alanine Aminotransferase (ALT/SGPT) 27 U/L Alkaline Phosphatase 83 U/L Total Creatine Kinase 221 U/L Creatine Kinase MB 13.3 ng/ml Creatine Kinase MB Ratio 6.0 Troponin I < 0.015 ng/ml Pro-B-Type Natriuretic Peptide 4592 pg/ml Total Protein 7.7 gm/dl Albumin 3.5 gm/dl Lipase 404 U/L Urine Color YELLOW Urine Appearance TURBID Urine pH 6.5 Urine Specific [place] 1.010 Urine Protein TRACE Urine Glucose (UA) NEG Urine Ketones NEG Urine Occult Blood 2+ Urine Nitrite NEG Urine Bilirubin NEG Urine Urobilinogen NEG Urine Leukocyte Esterase LARGE Urine WBC (Auto) >30 /hpf Urine RBC (Auto) 10-30 /hpf Urine Hyaline Casts (Auto) 1-5 /lpf Urine Epithelial Cells (Auto) 5-10 /lpf Urine Bacteria (Auto) NEG Urine Yeast (Auto) Bedside Glucose 266 mg/dl 180 mg/dl Test 11/03/16 22:00 11/03/16 22:56 11/03/16 23:11 Sodium Level 131 mmol/L Potassium Level 6.0 mmol/L Chloride Level 97 mmol/L Carbon Dioxide Level 24 mmol/L Anion Gap 10.0 mmol/L Blood Urea Nitrogen 119 mg/dl Creatinine 4.50 mg/dl Est Creatinine Clear Calc Drug Dose 13.5 ml/min Estimated GFR () 12.7 Estimated GFR (Non- 10.9 BUN/Creatinine Ratio 26.5 Random Glucose 40 mg/dl Calcium Level 8.7 mg/dl Magnesium Level 3.3 mg/dl Bedside Glucose 46 mg/dl 147 mg/dl Diagnostic Results CT OF THE HEAD WITHOUT CONTRAST CLINICAL HISTORY: Weakness. COMPARISON STUDY: No previous studies for comparison. CT DOSE: 537.48 mGy.cm TECHNIQUE: Helical axial images of the head were obtained without IV contrast. Automated exposure control was utilized for the study. FINDINGS: No acute intracranial hemorrhage, midline shift or mass effect is present. Mild ventricular dilatation is likely due to atrophy. The basilar cisterns are patent. There are no extra-axial collections. Brewer-white differentiation is maintained. There are no findings to suggest acute dural sinus thrombosis or acute territorial infarct. There is extensive intracranial vascular calcification. There are no calvarial abnormalities. Visualized portions of the sinuses and mastoid air cells are clear. White matter hypodensities suggest small vessel disease. IMPRESSION: No acute intracranial findings. Electronically signed by: Cristian Mckeon M.D. 11/03/2016 4:49 PM Dictated Date/Time: 11/03/2016 4:46 PM CHEST ONE VIEW PORTABLE CLINICAL HISTORY: Generalized Weakness dyspnea COMPARISON STUDY: 09/16/2016 FINDINGS: Moderate cardiomegaly. Prior median sternotomy. Hilar prominence pulmonary vasculature. IMPRESSION: Early congestive heart failure Electronically signed by: Adam Bond M.D. 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 (3) Systolic and diastolic CHF, acute on chronic (4) Hyperkalemia (5) Hypoglycemia (6) ALIDA (acute kidney injury) (7) Urinary tract infection PLAN: /Electrolytes: * Continue to treat for hyperkalemia and monitor potassium levels * Serial EKGs as needed * Strict I's and O's; Adams in place to gravity * Avoid Nephrotoxic Agents * Continue D5 normal saline Resp: * Supplemental oxygen as needed supplemental oxygen as needed * BiPAP at night * Monitor for pulmonary edema * Currently adequate saturations * Pt is Do Not Intubate should condition change Neuro: * pt denies pain * Altered Mental Status resolved s/p dextrose for hypoglycemia. * Monitor Glucose levels closely; q 1hr CV: * Hypotensive on admission, resolving now * No current need for pressors, continue to monitor * Continue home Cardiac Medications ID: * Urinalysis is suspicious for infection large amounts of leukocytes esterase and +2 occult blood * Culture Pending * No leukocytosis, afebrile * Procalcitonin morning labs * Antibiotics started prior to hypotensive event * Blood Cultures in AM * Continue current antibiotics GI/Nutrition: * Will monitor blood pressure prior to diet order * No current indication for GI prophylaxis Heme: * H&H stable, platelets 222 * Monitor daily CBC * Patient anticoagulated on Plavix Endocrine: * Accu-Checks per protocol, started insulin infusion for 2 blood sugars greater than 180 * Currently holding patient's glipizide & Januvia * Monitor glucose to 1 hour * SSI in place CCT: 60 Minutes; This time is exclusive of all separately billable procedures. Thank you for involving us in the care of this patient. Please refer to Dr. Asif Whitney's addendum for further recommendations. I have personally evaluated and examined this patient. I agree with assessment and plan of Tru Gutierrez PA-C. Patient was previously DNR/DNI however is undetermined whether the patient will want to undergo hemodialysis. Patient required transfer to critical care for possible hemodialysis catheter placement, emergent hemodialysis, and most acutely hypotension. He was volume resuscitated. He had significant improvement in his mental status. Patient's care was discussed with palliative care team, he does not want to undergo hemodialysis, this was confirmed with the son and he is stable for downgrad out of the ICU. Problem Qualifiers (1) Urinary tract infection: Urinary tract infection type: acute cystitis Hematuria presence: without hematuria Qualified Codes: N30.00 - Acute cystitis without hematuria
[2016-11-04] VITALS (49 sets, daily range): BP systolic 77–133; BP diastolic 41–78; PULSE 69–82; TEMP 36.4–36.7; O2SAT 91–100; Ht 172.7 cm; Wt 104.5 kg
[2016-11-04] MEDS ORDERED: CALCIUM GLUCONATE 10% 1,000 MG in SODIUM CHLORIDE 0.9% 50ML 50 ML IV ONE (00:15)
[2016-11-04] MEDS ORDERED: SODIUM POLYST. SULF SUSP 15G/60ML PO STA (00:24)
[2016-11-04] MEDS ORDERED: DEXTROSE 50% 50 ML SYR IV ONE ×2 (01:00→04:30)
[2016-11-04] MEDS: DEXTROSE 50% 50 ML SYR IV PRN (04:25)
[2016-11-04 05:55] LABS: HEMATOCRIT 30.8 % (42-52); MEAN CELL VOLUME 91.9 fL (80-100); MEAN CORPUSCULAR HGB CONC 33.8 g/dl (32-36); MEAN PLATELET VOLUME 9.4 fL (7.4-10.4); PLATELET COUNT 191 K/uL (130-400); RED BLOOD COUNT 3.35 M/uL (4.7-6.1); WHITE BLOOD COUNT 8.76 K/uL (4.8-10.8)
[2016-11-04] MEDS: HEPARIN SOD 5000 UNIT/0.5 ML CARP SQ SCH ×3 (06:18→20:51)
[2016-11-04] MEDS ORDERED: DEXTROSE 50% 50 ML SYR IV SCH (06:30)
[2016-11-04 06:41] LABS: BUN/CREATININE RATIO 25.4 (10-20); CALCIUM 8.9 mg/dl (8.5-10.1); CREATININE 4.3 mg/dl (0.60-1.40); MAGNESIUM 3.3 mg/dl (1.8-2.4); POTASSIUM 5.2 mmol/L (3.5-5.1)
[2016-11-04 06:42] LABS: PHOSPHORUS 6.9 mg/dl (2.5-4.9)
[2016-11-04] MEDS ORDERED: INSULIN ASPART 100 UNITS/ML 3 ML PEN SC SCH (06:45)
--- NOTE | 2016-11-04 06:48 | DIAGNOSTIC IMAGING REPORT ---
RENAL ULTRASOUND HISTORY: Renal insufficiency dillon, screen for hydro COMPARISON: None. FINDINGS: Right kidney: No hydronephrosis. Maximum dimension 10.0 cm. Left kidney: No hydronephrosis. Maximum dimension 8.9 cm Bladder: No bladder wall thickening. The bilateral ureteral jets were identified. IMPRESSION: Normal renal ultrasound. No evidence for hydronephrosis. Electronically signed by: Adam Bond M.D. 11/04/2016 6:46 AM Dictated Date/Time: 11/04/2016 6:46 AM
[2016-11-04] MEDS ORDERED: SODI CHLOR 2.5MEQ/ML 14.6% INJ 38.5 MEQ in DEXTROSE 10% 1,000 ML IV SCH (07:30)
[2016-11-04] MEDS ORDERED: AZTREONAM IV 1,000 MG in DEXTROSE 5% 100ML 100 ML IV SCH (08:00)
--- NOTE | 2016-11-04 08:37 | Progress Note ---
Internal Med Progress Note Date of Service: November 04, 2016. Provider Documentation: SUBJECTIVE: Patient is seen and examined at bedside. States having weakness which is slightly improved. Denies chest pain, Abd pain. Has Chronic SOB. OBJECTIVE: Vital Signs-as noted below Physical Exam: Vitals signs as noted above General Appearance:Moderately built and nourished, no apparent distress, + Tremor Head: normocephalic, Atraumatic Eyes: normal inspection, EOMI, PERRL Neck: supple, Trachea midline Respiratory/Chest: Normal breath sounds, CTA Cardiovascular: S1, S2, + systolic murmur Abdomen/GI:Soft, Non tender, Bowel sounds present Extremities/Musculoskelatal:normal inspection, Trace edema Neurologic/Psych:AAOX3, grossly no focal neurological deficits Skin: normal color, warm Lab data as noted below. 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 Likely secondary to Diuretics, CHARO inhibitors Continue IV fluids Avoid Nephrotoxic agents Renal USD:Unremarkable Hold diuretics, lisinopril Nephrology consulted Monitor renal function HYPERKALEMIA: Secondary to ARF and chronic potassium supplements Received calcium gluconate, dextrose and insulin, bicarbonate No EKG changes Potassium levels improving Monitor HYPOGLYCEMIA: H/O DM II, Patient on glipizide Hold all diabetic meds Continue IV fluids Monitor glucose level Hypoglycemia protocol, ISS HYPONATREMIA: Check Urine electrolytes Monitor sodium levels Fluid restriction: 1.8 litres per day CAD S/P CABG and stent placement: Continue ASA, Plavix, Coreg, Imdur Hold CHARO for now H/O systolic CHF: Last EF:40-45% Hold diuretics for now ? UTI: Continue IV antibiotics Follow up Cultures SLEEP APNEA: Continue CPAP HYPERTENSION: Currently hypotensive Hold Lisinopril Continue IV fluids Monitor ? H/O PARKINSONISM Not on any meds Will consult Neurology for recommendations GI Px: Protonix DVT Px: Heparin SQ Code Status: DNR/DNI Vital Signs: Date Time Temp Pulse Resp B/P Pulse Ox O2 Delivery O2 Flow Rate FiO2 11/04/16 08:33 36.7 74 18 99/58 99 Nasal Cannula 4.0 11/04/16 08:18 75 14 111/59 99 11/04/16 08:15 75 24 99 Nasal Cannula 4.0 11/04/16 08:12 78 24 115/53 99 11/04/16 08:06 100 Nasal Cannula 4.0 11/04/16 08:03 77 19 77/41 98 Nasal Cannula 4.0 11/04/16 07:45 78 19 99 Nasal Cannula 4.0 11/04/16 07:34 19 86/45 91 11/04/16 07:15 72 13 98 BiPAP 2.0 11/04/16 04:00 99 BiPAP 11/04/16 02:00 72 13 109/51 97 BiPAP 2.0 11/04/16 00:36 100 2.0 11/03/16 23:27 36.3 67 20 115/40 100 Nasal Cannula 4.0 11/03/16 21:58 76/34 11/03/16 21:40 36.4 75 20 110/65 100 Nasal Cannula 4.0 11/03/16 19:58 77 18 98/55 100 11/03/16 19:20 80 21 11/03/16 19:16 92/58 11/03/16 19:15 78 18 11/03/16 19:10 80 21 89/57 100 11/03/16 19:05 80 26 89/45 11/03/16 19:03 94/50 11/03/16 19:01 73/52 11/03/16 19:00 80 22 11/03/16 18:56 86/61 11/03/16 18:55 79 21 11/03/16 18:50 87/48 11/03/16 18:47 76 19 100 11/03/16 18:46 84/51 11/03/16 18:42 80 20 94/51 100 11/03/16 18:37 78 21 100 11/03/16 18:35 95/51 11/03/16 18:32 80 21 100 11/03/16 18:30 78/65 11/03/16 18:27 79 27 100 11/03/16 18:26 91/49 11/03/16 18:22 78 17 100 11/03/16 18:20 83/40 11/03/16 18:17 76 22 99 11/03/16 18:15 83/47 11/03/16 18:12 75 21 100 11/03/16 18:11 86/50 11/03/16 18:07 75 23 11/03/16 18:02 72 15 93 11/03/16 18:01 86/41 11/03/16 17:57 66 17 95 11/03/16 17:52 65 21 96 11/03/16 17:47 66 20 96 11/03/16 17:42 66 20 97 11/03/16 17:37 68 24 98 11/03/16 17:32 68 23 96 11/03/16 17:31 102/58 11/03/16 17:27 65 18 98 11/03/16 17:22 69 18 96 11/03/16 17:17 68 16 96 11/03/16 17:13 67 21 103/51 97 Room Air 11/03/16 17:12 68 24 103/51 97 11/03/16 16:27 78 20 11/03/16 16:22 67 20 11/03/16 16:17 66 16 11/03/16 16:12 67 19 98 11/03/16 16:07 68 14 97 11/03/16 16:02 68 15 98 11/03/16 15:57 77 16 11/03/16 15:52 66 20 95 11/03/16 15:47 65 25 96 11/03/16 15:14 36.3 68 18 96/51 96 Room Air 11/03/16 15:05 96/51 Lab Results: Results Past 24 Hours Test 11/03/16 16:20 11/03/16 17:40 11/03/16 18:15 11/03/16 21:59 Range/Units White Blood Count 9.29 4.8-10.8 K/uL Red Blood Count 3.53 4.7-6.1 M/uL Hemoglobin 11.2 14.0-18.0 g/dL Hematocrit 32.4 42-52 % Mean Corpuscular Volume 91.8 80-100 fL Mean Corpuscular Hemoglobin 31.7 25-34 pg Mean Corpuscular Hemoglobin Concent 34.6 32-36 g/dl Platelet Count 222 130-400 K/uL Mean Platelet Volume 10.3 7.4-10.4 fL Neutrophils (%) (Auto) 64.8 % Lymphocytes (%) (Auto) 14.7 % Monocytes (%) (Auto) 13.9 % Eosinophils (%) (Auto) 5.7 % Basophils (%) (Auto) 0.6 % Neutrophils # (Auto) 6.01 1.4-6.5 K/uL Lymphocytes # (Auto) 1.37 1.2-3.4 K/uL Monocytes # (Auto) 1.29 0.11-0.59 K/uL Eosinophils # (Auto) 0.53 0-0.5 K/uL Basophils # (Auto) 0.06 0-0.2 K/uL RDW Standard Deviation 50.3 36.4-46.3 fL RDW Coefficient of Variation 14.8 11.5-14.5 % Immature Granulocyte % (Auto) 0.3 % Immature Granulocyte # (Auto) 0.03 0.00-0.02 K/uL Prothrombin Time 11.0 9.0-12.0 SECONDS Prothromb Time International Ratio 1.0 0.9-1.1 Activated Partial Thromboplast Time 32.7 21.0-31.0 SECONDS Partial Thromboplastin Ratio 1.3 Sodium Level 128 136-145 mmol/L Potassium Level 6.7 3.5-5.1 mmol/L Chloride Level 92 98-107 mmol/L Carbon Dioxide Level 25 21-32 mmol/L Anion Gap 11.0 3-11 mmol/L Blood Urea Nitrogen 118 7-18 mg/dl Creatinine 5.00 0.60-1.40 mg/dl Est Creatinine Clear Calc Drug Dose 12.1 ml/min Estimated GFR () 11.2 Estimated GFR (Non- 9.6 BUN/Creatinine Ratio 23.5 10-20 Random Glucose 47 70-99 mg/dl Calcium Level 9.2 8.5-10.1 mg/dl Phosphorus Level 8.5 2.5-4.9 mg/dl Magnesium Level 3.5 1.8-2.4 mg/dl Total Bilirubin 0.4 0.2-1 mg/dl Direct Bilirubin < 0.1 0-0.2 mg/dl Aspartate Amino Transf (AST/SGOT) 29 15-37 U/L Alanine Aminotransferase (ALT/SGPT) 27 12-78 U/L Alkaline Phosphatase 83 45-117 U/L Total Creatine Kinase 221 39-308 U/L Creatine Kinase MB 13.3 0.5-3.6 ng/ml Creatine Kinase MB Ratio 6.0 0-3.0 Troponin I < 0.015 0-0.045 ng/ml Pro-B-Type Natriuretic Peptide 4592 0-1800 pg/ml Total Protein 7.7 6.4-8.2 gm/dl Albumin 3.5 3.4-5.0 gm/dl Lipase 404 73-393 U/L Urine Color YELLOW Urine Appearance TURBID CLEAR Urine pH 6.5 4.5-7.5 Urine Specific [place] 1.010 1.000-1.030 Urine Protein TRACE NEG Urine Glucose (UA) NEG NEG Urine Ketones NEG NEG Urine Occult Blood 2+ NEG Urine Nitrite NEG NEG Urine Bilirubin NEG NEG Urine Urobilinogen NEG NEG Urine Leukocyte Esterase LARGE NEG Urine WBC (Auto) >30 0-5 /hpf Urine RBC (Auto) 10-30 0-4 /hpf Urine Hyaline Casts (Auto) 1-5 0-5 /lpf Urine Epithelial Cells (Auto) 5-10 0-5 /lpf Urine Bacteria (Auto) NEG NEG Urine Yeast (Auto) NONE PRSENT Bedside Glucose 266 180 70-99 mg/dl Test 11/03/16 22:00 11/03/16 22:56 11/03/16 23:11 11/04/16 00:31 Range/Units Sodium Level 131 136-145 mmol/L Potassium Level 6.0 3.5-5.1 mmol/L Chloride Level 97 98-107 mmol/L Carbon Dioxide Level 24 21-32 mmol/L Anion Gap 10.0 3-11 mmol/L Blood Urea Nitrogen 119 7-18 mg/dl Creatinine 4.50 0.60-1.40 mg/dl Est Creatinine Clear Calc Drug Dose 13.5 ml/min Estimated GFR () 12.7 Estimated GFR (Non- 10.9 BUN/Creatinine Ratio 26.5 10-20 Random Glucose 40 70-99 mg/dl Calcium Level 8.7 8.5-10.1 mg/dl Magnesium Level 3.3 1.8-2.4 mg/dl Bedside Glucose 46 147 100 70-99 mg/dl Test 11/04/16 01:23 11/04/16 02:13 11/04/16 03:11 11/04/16 04:10 Range/Units Bedside Glucose 70 138 99 74 70-99 mg/dl Test 11/04/16 05:13 11/04/16 05:49 11/04/16 06:02 11/04/16 08:05 Range/Units Bedside Glucose 101 81 70-99 mg/dl White Blood Count 8.76 4.8-10.8 K/uL Red Blood Count 3.35 4.7-6.1 M/uL Hemoglobin 10.4 14.0-18.0 g/dL Hematocrit 30.8 42-52 % Mean Corpuscular Volume 91.9 80-100 fL Mean Corpuscular Hemoglobin 31.0 25-34 pg Mean Corpuscular Hemoglobin Concent 33.8 32-36 g/dl RDW Standard Deviation 51.0 36.4-46.3 fL RDW Coefficient of Variation 14.9 11.5-14.5 % Platelet Count 191 130-400 K/uL Mean Platelet Volume 9.4 7.4-10.4 fL Sodium Level 132 136-145 mmol/L Potassium Level 5.2 3.5-5.1 mmol/L Chloride Level 98 98-107 mmol/L Carbon Dioxide Level 23 21-32 mmol/L Anion Gap 11.0 3-11 mmol/L Blood Urea Nitrogen 109 7-18 mg/dl Creatinine 4.30 0.60-1.40 mg/dl Est Creatinine Clear Calc Drug Dose 14.1 ml/min Estimated GFR () 13.4 Estimated GFR (Non- 11.6 BUN/Creatinine Ratio 25.4 10-20 Random Glucose 82 70-99 mg/dl Osmolality 311 280-300 mOsm/kg Calcium Level 8.9 8.5-10.1 mg/dl Phosphorus Level 6.9 2.5-4.9 mg/dl Magnesium Level 3.3 1.8-2.4 mg/dl Procalcitonin 0.30 0-0.5 ng/ml Urine Osmolality 337 500-800 mOms/kg Urine Random Sodium 61 mEq/L Urine Random Potassium 57.2 mEq/L Urine Random Chloride 106 mEq/L Test 11/04/16 09:34 Range/Units Microbiology Results 11/04/16 Blood Culture, Received Pending 11/04/16 Blood Culture, Received Pending 11/04/16 MRSA DNA Surveillance Screen - Final, Complete Specimen Positive for MRSA by DNA Probe 11/03/16 Urine Culture, Received Pending
--- NOTE | 2016-11-04 08:56 | NEPHROLOGY CONSULTATION ---
DATE OF CONSULTATION: 11/04/2016 DATE OF CONSULTATION: 11/04/2016. ATTENDING OF RECORD: Dr. Gallegos. REASON FOR CONSULTATION: Hyperkalemia and ALIDA. HISTORY OF PRESENT ILLNESS: This is an 85-year-old male who follows with me in my outpatient clinic in [place] who has underlying CKD stage IV with baseline creatinine in the low 2s with no proteinuria from advanced age and hypertension. No tobacco history. No NSAIDs, no myeloma. The patient with hypertension since 1982 which is normally well controlled. Does have significant cardiac history with aortic stenosis and chronic edema of the legs with history of bypass x3 in 1982 with stenting x2 and has shortness of breath with exertion at baseline. The patient also with history of diabetes with significant hospitalization to [facility] in June where the patient did have a significant acute kidney injury during that time and we considered whether to start dialysis or not. The patient's kidney function though eventually improved and the patient was discharged with a creatinine of 2 in August 09, September 16 was 1.9. The patient presents today with a creatinine of 5 and a potassium level of 6.7 with minimal edema in his legs and confusion with a UA concerning for possible infection. The patient was started on antibiotics and given fluids. Blood pressure was 96/51 and trended down into the 70s temporarily and was given more fluids. The patient's blood sugars have also been erratic with a blood glucose of 47 on admission, went up to 266 and is now down to 46. This is in the setting of glipizide and Januvia with ALIDA. The patient's outpatient regimen was Lasix 120 mg 3 times a day, metolazone 2.5 mg twice a week, potassium 40 mEq 3 times daily and now appears to be in sepsis with hypotension, ALIDA, hyperkalemia, lethargy, possible UTI with intermittent low blood sugars. The patient was initially admitted to telemetry; however, secondary to his continued intermittent low blood sugars and low blood pressures requiring more fluids, antibiotics have been broadened. The patient is being transferred down to the intensive care unit. In speaking with the family as well as the patient we will not do CPR on the patient and we will not intubate the patient, however the family is open to central lines if needed as well as pressors if necessary plus or minus dialysis if necessary. PAST MEDICAL HISTORY: Coronary artery disease status post bypass as well as stenting many years ago, CKD stage IV with baseline creatinine in the low 2s, type 2 diabetes, hypertension, hyperlipidemia, BPH, obstructive sleep apnea. PAST SURGICAL HISTORY: The bypass and stenting to the heart. FAMILY HISTORY: Heart disease. SOCIAL HISTORY: Quit smoking in 1968. No alcohol. No drugs. Lives with friend who is his primary caregiver. REVIEW OF SYSTEMS: Unclear how reliable the review of systems are secondary to patient's waxing and waning mental status. The patient does have chronic shortness of breath with exertion. Denies any chest pain. Denies any nausea, vomiting, complaining of being tired. All other review of systems unobtainable secondary to the patient's mental status. HOME MEDICATIONS: Significant for Lasix 120 mg 3 times a day, lisinopril 2.5 mg daily, metolazone 2.5 mg 2 times a week, potassium 40 mEq 3 times daily, glipizide 15 mg a day in total, Coreg 3.125 b.i.d., Plavix 75 mg daily, Imdur 60 mg a day. CURRENT MEDICATIONS: Aspirin 81 mg a day, Plavix 75 mg daily, Proscar 5 mg daily, Imdur 60 mg daily, senna 8.6 mg daily, Zoloft 50 mg daily, sliding scale insulin, normal saline at 100 mL an hour, vancomycin 2 grams IV x1, aztreonam 2 grams IV x1, heparin 5000 units subQ q. 8, Coreg 3.125 p.o. b.i.d., Colace 100 mg p.o. b.i.d. The patient has received 1 gram of IV ceftriaxone, 1 liter fluid bolus followed by another liter of fluid bolus, calcium, dextrose. PHYSICAL EXAMINATION: VITAL SIGNS: Last vital signs are temperature 36.4, pulse in the 70s, respiratory rate is 20, blood pressure is 117/65, satting 100% on 4 liters. GENERAL: Awake, alert, oriented x3, more alert after dextrose infusion, although unclear if he has insight into his medical problems. EYES: No scleral icterus. HEAD, EYES, EARS, NOSE, AND THROAT: Moist mucous membranes. NECK: Supple. PULMONARY: Decreased at the bases with some mild rales. CARDIAC: Distant heart sounds, regular with some occasional ectopy. ABDOMEN: Bowel sounds positive, soft, nontender. EXTREMITIES: Minimal edema with some mild erythema in both legs. NEUROLOGICALLY: The patient presented with altered mental status, appears to be more alert now. Knows his name and that he is in the hospital, that it is 2017, that Darwin is the president, but is tired. LABORATORIES: Sodium level is 131, potassium 6, chloride 97, bicarbonate is 24, BUN is 119, creatinine is 4.5, glucose was 46 and now back up into the 100s, magnesium level 3.3. On admission sodium level is 128, potassium 6.7, chloride is 92, bicarbonate is 25, BUN is 118, creatinine 5, glucose 47, calcium is 9.2, phosphate 8.5, mag 3.5. ProBNP 4592, lipase 404, albumin is 3.5, AST 29, ALT 27, CK 221. White count 9, H\T\H 11 and 32, platelet count is 222. INR is 1. UA shows a pH 6.5, specific gravity 1.010, trace protein, 2+ blood, large leukocyte esterase, greater than 30 WBCs, 10-30 RBCs. Urine culture pending. Chest x-ray shows early congestive heart failure, moderate cardiomegaly. ASSESSMENT AND PLAN: 1. Acute kidney injury. Creatinine was 5 on admission, now down to 4.5. Baseline creatinine is in the low 2s, placing Adams catheter now. Does have a history of benign prostatic hypertrophy, so will see if able to place one easily or not. Would like to check a renal ultrasound in the morning to be thorough. Although patient suffers from chronic shortness of breath and has cardiomyopathy with aortic stenosis followed closely by cardiology requiring high dose of diuretics, in my clinical opinion the patient appears volume depleted. Normally has significant swelling in his legs and currently has minimal edema right now in his legs and appears to have a urinary tract infection which may be stressing his body and technically is in sepsis now, being transferred to the intensive care unit. Will continue IV fluids at 100 mL an hour and follow for signs of flash pulmonary edema. The patient is not an appropriate candidate for intubation according to his wishes. May need dialysis depending on electrolytes and volume status. May need a central line with pressors depending on how he responds to the antibiotics. Currently appears to be slowly improving with potassium levels trending down from 6.7 to 6, sodium levels trending up from 128 to 131. 2. Hypoglycemia. The patient was on oral hypoglycemic agents in the setting of renal failure and is at risk for hypoglycemic events over the next 24-36 hours as we await for the kidney function to continue to slowly improve through IV fluids and antibiotics. We will continue to monitor for signs of hypoglycemia and add D5 to normal saline. Overall, patient with multiple comorbidities who does not wish to be intubated or CPR and has overall poor prognosis. Will continue IV fluids and antibiotics and consider dialysis if medically necessary. We will place a Adams catheter and monitor urine output. Check a renal ultrasound in the morning and follow potassium and kidney function. The case was discussed with critical care as well as Dr. Gallegos who are in agreement with plan. I personally spoke to family members as well as friend and updated them to the best of my ability. Will follow closely. Once again, though overall poor prognosis given comorbidities and constellation of findings. Appreciate consultation. CECILY
[2016-11-04] MEDS: CARVEDILOL 3.125 MG TAB PO SCH ×2 (09:00→20:42)
[2016-11-04] MEDS: ISOSORBIDE MONONITRATE 60 MG TABCR PO SCH (09:00)
[2016-11-04] MEDS: CLOPIDOGREL BISULFATE 75 MG TAB PO SCH (09:02)
[2016-11-04] MEDS: ASPIRIN 81 MG ECTAB PO SCH (09:02)
[2016-11-04] MEDS: FINASTERIDE 5 MG TAB PO SCH (09:02)
[2016-11-04] MEDS: DOCUSATE SODIUM 100 MG CAP PO SCH ×2 (09:02→20:41)
[2016-11-04] MEDS: ALBUMIN HUMAN 25% 12.5 GM/50 ML VIAL IV SCH ×5 (09:02→13:46)
[2016-11-04] MEDS: SERTRALINE HCL 50 MG TAB PO SCH (09:03)
[2016-11-04] MEDS: SENNA 8.6 MG TAB PO SCH (09:03)
--- NOTE | 2016-11-04 10:28 | Nephrology Progress Note ---
Nephrology Progress Note Date of Service: November 04, 2016. Subjective seen on rounds this am at 0930; feels dyspneic and terribly thirsty; no pain; feels L foot edema controlled. on D10 1/4 NS at 50 mL hourly >> low BG still a concern. also some significant hypotension this am improved w/ extended trendelenberg Objective Date Time Temp Pulse Resp B/P Pulse Ox O2 Delivery O2 Flow Rate FiO2 11/04/16 04:00 99 BiPAP 11/04/16 02:00 72 13 109/51 97 BiPAP 2.0 11/04/16 00:36 100 2.0 11/03/16 23:27 36.3 67 20 115/40 100 Nasal Cannula 4.0 11/03/16 21:58 76/34 11/03/16 21:40 36.4 75 20 110/65 100 Nasal Cannula 4.0 11/03/16 19:58 77 18 98/55 100 11/03/16 19:20 80 21 11/03/16 19:16 92/58 11/03/16 19:15 78 18 11/03/16 19:10 80 21 89/57 100 11/03/16 19:05 80 26 89/45 11/03/16 19:03 94/50 11/03/16 19:01 73/52 11/03/16 19:00 80 22 11/03/16 18:56 86/61 11/03/16 18:55 79 21 11/03/16 18:50 87/48 11/03/16 18:47 76 19 100 11/03/16 18:46 84/51 11/03/16 18:42 80 20 94/51 100 11/03/16 18:37 78 21 100 11/03/16 18:35 95/51 11/03/16 18:32 80 21 100 11/03/16 18:30 78/65 11/03/16 18:27 79 27 100 11/03/16 18:26 91/49 11/03/16 18:22 78 17 100 11/03/16 18:20 83/40 11/03/16 18:17 76 22 99 11/03/16 18:15 83/47 11/03/16 18:12 75 21 100 11/03/16 18:11 86/50 5/11/17 18:07 75 23 11/03/16 18:02 72 15 93 11/03/16 18:01 86/41 11/03/16 17:57 66 17 95 11/03/16 17:52 65 21 96 11/03/16 17:47 66 20 96 11/03/16 17:42 66 20 97 11/03/16 17:37 68 24 98 11/03/16 17:32 68 23 96 11/03/16 17:31 102/58 11/03/16 17:27 65 18 98 11/03/16 17:22 69 18 96 11/03/16 17:17 68 16 96 11/03/16 17:13 67 21 103/51 97 Room Air 11/03/16 17:12 68 24 103/51 97 11/03/16 16:27 78 20 11/03/16 16:22 67 20 11/03/16 16:17 66 16 11/03/16 16:12 67 19 98 11/03/16 16:07 68 14 97 11/03/16 16:02 68 15 98 11/03/16 15:57 77 16 11/03/16 15:52 66 20 95 11/03/16 15:47 65 25 96 11/03/16 15:14 36.3 68 18 96/51 96 Room Air 11/03/16 15:05 96/51 Physical Exam: General - NAD, on 02nc, oriented x 3 Eyes - PERRL, EOMI, nonicteric ENT - dry MM Neck - Supple Lungs - diminished bilaterally but clear Heart - RRR, 3/6 SM Abdomen - BS+, soft, nontender, distended, lujan Extremities - 2+ L pedal edema Neuro - luu, fluent speech; intermittent resting tremor BLUE Current Inpatient Medications Medications (Trade) Dose Ordered Sig/Vijay Route Start Time Stop Time Status Last Admin Dose Admin Heparin Sodium (Porcine) (Heparin Sq 5000 Unit/0.5ml) 5,000 unit Q8 SQ 11/03/16 22:00 12/03/16 21:59 11/04/16 06:18 5,000 UNIT Acetaminophen (Tylenol Tab) 650 mg Q4H PRN PO 11/03/16 19:00 12/03/16 18:59 Ondansetron HCl (Zofran Inj) 4 mg Q6H PRN IV 11/03/16 19:00 12/03/16 18:59 Aspirin (Ecotrin Tab) 81 mg QAM PO 11/04/16 09:00 12/04/16 08:59 Carvedilol (Coreg Tab) 3.125 mg BID PO 11/03/16 21:00 12/03/16 20:59 Clopidogrel Bisulfate (plAVix TAB) 75 mg QAM PO 11/04/16 09:00 12/04/16 08:59 Docusate Sodium (coLACE CAP) 100 mg BID PO 11/03/16 21:00 12/03/16 20:59 Finasteride (Proscar Tab) 5 mg QAM PO 11/04/16 09:00 12/04/16 08:59 Albuterol/ Ipratropium (Duoneb) 3 ml Q6 PRN INH 11/03/16 19:00 12/03/16 18:59 Isosorbide Mononitrate (Imdur Ext Rel Tab) 60 mg QAM PO 11/04/16 09:00 12/04/16 08:59 Senna (Senokot Tab) 8.6 mg QAM PO 11/04/16 09:00 12/04/16 08:59 Sertraline HCl (Zoloft Tab) 50 mg QAM PO 11/04/16 09:00 12/04/16 08:59 Triamcinolone Acetonide (Kenalog 0.1% Cream) 1 appln BID PRN EXT 11/03/16 19:00 12/03/16 18:59 Polyethylene (Miralax Powder Packet) 17 gm DAILY PRN PO 11/03/16 19:30 12/03/16 19:29 Insulin Aspart (novoLOG ASPART) SLIDING SCALE G... ACHS SC 11/04/16 06:45 12/04/16 06:59 Glucose (Glucose 40% Gel) 15-30 GRAMS 15 GRAMS... UD PRN PO 11/03/16 21:15 12/03/16 21:14 Glucose (Glucose Chew Tab) 4-8 Tablets 4 Tabl... UD PRN PO 11/03/16 21:15 12/03/16 21:14 Dextrose (Dextrose 50% 50ML Syringe) 25-50ML OF 50% DW IV FOR... UD PRN IV 11/03/16 21:15 12/03/16 21:14 11/04/16 04:25 25 ML Glucagon 1 mg 1 mg UD PRN SQ 11/03/16 21:15 12/03/16 21:14 Aztreonam/Dextrose (Azactam IV/D5 100ml) 110 ml @ 100 mls/hr Q8H IV 11/04/16 08:00 11/14/16 07:59 Vancomycin HCl (Consult) 1 ea UD PRN N/A 11/03/16 22:45 12/03/16 22:44 Aztreonam 1 ea 1 ea UD PRN N/A 11/03/16 22:45 12/03/16 22:44 Dextrose/Sodium Chloride 1,000 ml @ 50 mls/hr Q20H IV 11/03/16 23:45 12/03/16 23:44 11/04/16 01:05 50 MLS/HR Sodium Chloride/ Dextrose (Sodium Chloride 2.5MEQ/Ml 14.6% Inj/D10w) 1,015.4 ml @ 70 mls/hr [id number] IV 11/04/16 07:30 12/04/16 07:29 11/04/16 07:57 70 MLS/HR Last 24 Hours Test 11/03/16 16:20 11/03/16 17:40 11/03/16 18:15 11/03/16 21:59 White Blood Count 9.29 K/uL Red Blood Count 3.53 M/uL Hemoglobin 11.2 g/dL Hematocrit 32.4 % Mean Corpuscular Volume 91.8 fL Mean Corpuscular Hemoglobin 31.7 pg Mean Corpuscular Hemoglobin Concent 34.6 g/dl Platelet Count 222 K/uL Mean Platelet Volume 10.3 fL Neutrophils (%) (Auto) 64.8 % Lymphocytes (%) (Auto) 14.7 % Monocytes (%) (Auto) 13.9 % Eosinophils (%) (Auto) 5.7 % Basophils (%) (Auto) 0.6 % Neutrophils # (Auto) 6.01 K/uL Lymphocytes # (Auto) 1.37 K/uL Monocytes # (Auto) 1.29 K/uL Eosinophils # (Auto) 0.53 K/uL Basophils # (Auto) 0.06 K/uL RDW Standard Deviation 50.3 fL RDW Coefficient of Variation 14.8 % Immature Granulocyte % (Auto) 0.3 % Immature Granulocyte # (Auto) 0.03 K/uL Prothrombin Time 11.0 SECONDS Prothromb Time International Ratio 1.0 Activated Partial Thromboplast Time 32.7 SECONDS Partial Thromboplastin Ratio 1.3 Sodium Level 128 mmol/L Potassium Level 6.7 mmol/L Chloride Level 92 mmol/L Carbon Dioxide Level 25 mmol/L Anion Gap 11.0 mmol/L Blood Urea Nitrogen 118 mg/dl Creatinine 5.00 mg/dl Est Creatinine Clear Calc Drug Dose 12.1 ml/min Estimated GFR () 11.2 Estimated GFR (Non- 9.6 BUN/Creatinine Ratio 23.5 Random Glucose 47 mg/dl Calcium Level 9.2 mg/dl Phosphorus Level 8.5 mg/dl Magnesium Level 3.5 mg/dl Total Bilirubin 0.4 mg/dl Direct Bilirubin < 0.1 mg/dl Aspartate Amino Transf (AST/SGOT) 29 U/L Alanine Aminotransferase (ALT/SGPT) 27 U/L Alkaline Phosphatase 83 U/L Total Creatine Kinase 221 U/L Creatine Kinase MB 13.3 ng/ml Creatine Kinase MB Ratio 6.0 Troponin I < 0.015 ng/ml Pro-B-Type Natriuretic Peptide 4592 pg/ml Total Protein 7.7 gm/dl Albumin 3.5 gm/dl Lipase 404 U/L Urine Color YELLOW Urine Appearance TURBID Urine pH 6.5 Urine Specific [place] 1.010 Urine Protein TRACE Urine Glucose (UA) NEG Urine Ketones NEG Urine Occult Blood 2+ Urine Nitrite NEG Urine Bilirubin NEG Urine Urobilinogen NEG Urine Leukocyte Esterase LARGE Urine WBC (Auto) >30 /hpf Urine RBC (Auto) 10-30 /hpf Urine Hyaline Casts (Auto) 1-5 /lpf Urine Epithelial Cells (Auto) 5-10 /lpf Urine Bacteria (Auto) NEG Urine Yeast (Auto) Bedside Glucose 266 mg/dl 180 mg/dl Test 11/03/16 22:00 11/03/16 22:56 11/03/16 23:11 11/04/16 00:31 Sodium Level 131 mmol/L Potassium Level 6.0 mmol/L Chloride Level 97 mmol/L Carbon Dioxide Level 24 mmol/L Anion Gap 10.0 mmol/L Blood Urea Nitrogen 119 mg/dl Creatinine 4.50 mg/dl Est Creatinine Clear Calc Drug Dose 13.5 ml/min Estimated GFR () 12.7 Estimated GFR (Non- 10.9 BUN/Creatinine Ratio 26.5 Random Glucose 40 mg/dl Calcium Level 8.7 mg/dl Magnesium Level 3.3 mg/dl Bedside Glucose 46 mg/dl 147 mg/dl 100 mg/dl Test 11/04/16 01:23 11/04/16 02:13 11/04/16 03:11 11/04/16 04:10 Bedside Glucose 70 mg/dl 138 mg/dl 99 mg/dl 74 mg/dl Test 11/04/16 05:13 11/04/16 05:49 11/04/16 06:02 11/04/16 08:05 Bedside Glucose 101 mg/dl 81 mg/dl White Blood Count 8.76 K/uL Red Blood Count 3.35 M/uL Hemoglobin 10.4 g/dL Hematocrit 30.8 % Mean Corpuscular Volume 91.9 fL Mean Corpuscular Hemoglobin 31.0 pg Mean Corpuscular Hemoglobin Concent 33.8 g/dl RDW Standard Deviation 51.0 fL RDW Coefficient of Variation 14.9 % Platelet Count 191 K/uL Mean Platelet Volume 9.4 fL Sodium Level 132 mmol/L Potassium Level 5.2 mmol/L Chloride Level 98 mmol/L Carbon Dioxide Level 23 mmol/L Anion Gap 11.0 mmol/L Blood Urea Nitrogen 109 mg/dl Creatinine 4.30 mg/dl Est Creatinine Clear Calc Drug Dose 14.1 ml/min Estimated GFR () 13.4 Estimated GFR (Non- 11.6 BUN/Creatinine Ratio 25.4 Random Glucose 82 mg/dl Calcium Level 8.9 mg/dl Phosphorus Level 6.9 mg/dl Magnesium Level 3.3 mg/dl Procalcitonin 0.30 ng/ml Date/Time Source Procedure Growth Status 11/04/16 06:04 Blood Blood Culture Pending Received 11/04/16 05:49 Blood Blood Culture Pending Received 11/04/16 00:00 Nasal MRSA DNA Surveillance Screen Pending Received 11/03/16 17:40 Urine , Clean Catch Urine Culture Pending Received Assessment & Plan 85 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 Inflamed but not necessarily infected urine; blood/urine cxs pending. Renal u/s unremarkable. On aztreonam and vanco currently. 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 4 w/ hyperkalemia, hypovolemic hyponatremia (osms pending) and hypotension potassium has responded to medical therapy. sodium improving; chemistries acceptable at this time. not oliguric, in fact trending to polyuria -daily bmp ok but would also recheck one more time this afternoon (order in) given sodium/K -strict I/O -f/u pending cxs; monitor vanco levels -diuretics on hold currently; would use prn only at this point -will order 1.8L daily fluid limit -no significant IV fluid (rate/volume kelly) currently > if hypotension recurrent /persistent, consider D5 1/2 NS w/ 75 mEq of sodium bicarb at 50-75 mL hrly Appreciate consultation; will follow with you. Care coordinated w/ Dr. Mejia
[2016-11-04] MEDS ORDERED: SODIUM BICARBONATE IV SCH (11:15)
[2016-11-04] MEDS ORDERED: DEXTROSE 10% IV SCH (11:15)
--- NOTE | 2016-11-04 11:30 | Neurology Consultation ---
Neurology Consultation Date of Consultation: November 04, 2016. Attending Physician: Jj Mejia MD Primary Care Physician: Krista Tran,C.R.N.P. Reason for Consultation: parkinson's /resting tremor History of Present Illness Source: patient Axel is a 85-year-old obese male with PMH CAD, history of systolic heart failure secondary to CAD, asthma exacerbation, CKD IV, DM2, history of PR, DL, obstructive sleep apnea. He states he lives at home with a skin care consultant. He got up in the morning and was able to walk to the table but after that he was unable to get up. He had generalized weakness and the caregiver called the PCP and he advised to have him taken to the hospital for evaluation. He was weak and lethargic upon arrival to the ED. He was afebrile with a blood pressure of 103/51 and saturation 97% on room air and BUN and creatinine of 118/5.0, and K- 6.7. He also had a random glucose of 47. He received intravenous glucose, dextrose, bicarbonate and also calcium gluconate and also glucose and was advised for admission. He was also started on antibiotics for possible UTI. Today he states he is feeling good. He is lying comfortably in bed with no complaints. He states he was diagnosed with Parkinson's by his tomographic tech and was told there was nothing to be done about it and it would get worse. He was never on any medication for Parkinson's. he denies swallowing difficulty, has difficulty with rolling in bed, and starting with walking, no recent falls, no bowel or bladder issues. + tremor walks with walker at baseline Past Medical/Surgical History Medical Problems: (1) Acute renal failure Status: Acute (2) Altered mental status Status: Acute (3) Generalized weakness Status: Acute (4) Hyperkalemia Status: Acute (5) Hypoglycemia Status: Acute (6) Swelling of left lower extremity Status: Acute (7) Urinary tract infection Status: Acute Social History Smoking Status: Former smoker Drug Use: none Marital Status: Occupation Status: retired Allergies Coded Allergies: Zolpidem (Verified Allergy, Severe, SOB, MUSCLES "LOCK UP" PER [facility], ) DELIRIUM. Confusion. Insomnia. Insulin Aspart (Verified Adverse Reaction, Intermediate, REDDENED RASH ALL OVER BODY, 11/03/16) Insulin Glargine (Verified Adverse Reaction, Intermediate, REDDENED RASH ALL OVER BODY, 11/03/16) Amoxicillin (Verified Adverse Reaction, Unknown, NIGHTMARES, 11/03/16) Current Inpatient Medications Current Inpatient Medications Medications (Trade) Dose Ordered Sig/Vijay Route Start Time Stop Time Status Last Admin Dose Admin Heparin Sodium (Porcine) (Heparin Sq 5000 Unit/0.5ml) 5,000 unit Q8 SQ 11/03/16 22:00 12/03/16 21:59 11/04/16 06:18 5,000 UNIT Acetaminophen (Tylenol Tab) 650 mg Q4H PRN PO 11/03/16 19:00 12/03/16 18:59 Ondansetron HCl (Zofran Inj) 4 mg Q6H PRN IV 11/03/16 19:00 12/03/16 18:59 Aspirin (Ecotrin Tab) 81 mg QAM PO 11/04/16 09:00 12/04/16 08:59 11/04/16 09:02 81 MG Carvedilol (Coreg Tab) 3.125 mg BID PO 11/03/16 21:00 12/03/16 20:59 Clopidogrel Bisulfate (plAVix TAB) 75 mg QAM PO 11/04/16 09:00 12/04/16 08:59 11/04/16 09:02 75 MG Docusate Sodium (coLACE CAP) 100 mg BID PO 11/03/16 21:00 12/03/16 20:59 11/04/16 09:02 100 MG Finasteride (Proscar Tab) 5 mg QAM PO 11/04/16 09:00 12/04/16 08:59 11/04/16 09:02 5 MG Albuterol/ Ipratropium (Duoneb) 3 ml Q6 PRN INH 11/03/16 19:00 12/03/16 18:59 Isosorbide Mononitrate (Imdur Ext Rel Tab) 60 mg QAM PO 11/04/16 09:00 12/04/16 08:59 Senna (Senokot Tab) 8.6 mg QAM PO 11/04/16 09:00 12/04/16 08:59 11/04/16 09:03 8.6 MG Sertraline HCl (Zoloft Tab) 50 mg QAM PO 11/04/16 09:00 12/04/16 08:59 11/04/16 09:03 50 MG Triamcinolone Acetonide (Kenalog 0.1% Cream) 1 appln BID PRN EXT 11/03/16 19:00 12/03/16 18:59 Polyethylene (Miralax Powder Packet) 17 gm DAILY PRN PO 11/03/16 19:30 12/03/16 19:29 Glucose (Glucose 40% Gel) 15-30 GRAMS 15 GRAMS... UD PRN PO 11/03/16 21:15 12/03/16 21:14 Glucose (Glucose Chew Tab) 4-8 Tablets 4 Tabl... UD PRN PO 11/03/16 21:15 12/03/16 21:14 Dextrose (Dextrose 50% 50ML Syringe) 25-50ML OF 50% DW IV FOR... UD PRN IV 11/03/16 21:15 12/03/16 21:14 11/04/16 04:25 25 ML Glucagon 1 mg 1 mg UD PRN SQ 11/03/16 21:15 12/03/16 21:14 Aztreonam/Dextrose (Azactam IV/D5 100ml) 110 ml @ 100 mls/hr Q8H IV 11/04/16 08:00 11/14/16 07:59 11/04/16 10:29 100 MLS/HR Vancomycin HCl (Consult) 1 ea UD PRN N/A 11/03/16 22:45 12/03/16 22:44 Aztreonam (Consult) 1 ea UD PRN N/A 11/03/16 22:45 12/03/16 22:44 Albumin Human 12.5 gm 12.5 gm TODAY@0900,1000,1100,1200 IV 11/04/16 09:00 11/04/16 12:59 11/04/16 10:29 12.5 GM Sodium Bicarbonate/ Dextrose (Sodium Bicarbonate 8.4% Inj/D10w) 1,075 ml @ 50 mls/hr [id number] IV 11/04/16 11:15 12/04/16 11:14 Physical Exam Vital Signs (Past 24 Hrs): Date Time Temp Pulse Resp B/P Pulse Ox O2 Delivery O2 Flow Rate FiO2 11/04/16 10:03 36.7 76 20 126/64 99 Nasal Cannula 4.0 11/04/16 09:33 82 23 133/62 11/04/16 09:19 104/60 11/04/16 09:03 79 21 112/63 99 Nasal Cannula 4.0 11/04/16 08:48 78 17 133/61 99 Nasal Cannula 4.0 11/04/16 08:33 36.7 74 18 99/58 99 Nasal Cannula 4.0 11/04/16 08:18 75 14 111/59 99 11/04/16 08:15 75 24 99 Nasal Cannula 4.0 11/04/16 08:12 78 24 115/53 99 11/04/16 08:06 100 Nasal Cannula 4.0 11/04/16 08:03 77 19 77/41 98 Nasal Cannula 4.0 11/04/16 07:45 78 19 99 Nasal Cannula 4.0 11/04/16 07:34 19 86/45 91 11/04/16 07:15 72 13 98 BiPAP 2.0 11/04/16 04:00 99 BiPAP 11/04/16 02:00 72 13 109/51 97 BiPAP 2.0 11/04/16 00:36 100 2.0 11/03/16 23:27 36.3 67 20 115/40 100 Nasal Cannula 4.0 11/03/16 21:58 76/34 11/03/16 21:40 36.4 75 20 110/65 100 Nasal Cannula 4.0 11/03/16 19:58 77 18 98/55 100 11/03/16 19:20 80 21 11/03/16 19:16 92/58 11/03/16 19:15 78 18 11/03/16 19:10 80 21 89/57 100 11/03/16 19:05 80 26 89/45 11/03/16 19:03 94/50 11/03/16 19:01 73/52 11/03/16 19:00 80 22 11/03/16 18:56 86/61 11/03/16 18:55 79 21 11/03/16 18:50 87/48 11/03/16 18:47 76 19 100 11/03/16 18:46 84/51 11/03/16 18:42 80 20 94/51 100 11/03/16 18:37 78 21 100 11/03/16 18:35 95/51 11/03/16 18:32 80 21 100 11/03/16 18:30 78/65 11/03/16 18:27 79 27 100 11/03/16 18:26 91/49 11/03/16 18:22 78 17 100 11/03/16 18:20 83/40 11/03/16 18:17 76 22 99 11/03/16 18:15 83/47 11/03/16 18:12 75 21 100 11/03/16 18:11 86/50 11/03/16 18:07 75 23 11/03/16 18:02 72 15 93 11/03/16 18:01 86/41 11/03/16 17:57 66 17 95 11/03/16 17:52 65 21 96 11/03/16 17:47 66 20 96 11/03/16 17:42 66 20 97 11/03/16 17:37 68 24 98 11/03/16 17:32 68 23 96 11/03/16 17:31 102/58 11/03/16 17:27 65 18 98 11/03/16 17:22 69 18 96 11/03/16 17:17 68 16 96 11/03/16 17:13 67 21 103/51 97 Room Air 11/03/16 17:12 68 24 103/51 97 11/03/16 16:27 78 20 11/03/16 16:22 67 20 11/03/16 16:17 66 16 11/03/16 16:12 67 19 98 11/03/16 16:07 68 14 97 11/03/16 16:02 68 15 98 11/03/16 15:57 77 16 11/03/16 15:52 66 20 95 11/03/16 15:47 65 25 96 11/03/16 15:14 36.3 68 18 96/51 96 Room Air 11/03/16 15:05 96/51 Physical Exam: Constitutional appearance nourished, obese Ears, Nose, Mouth and Throat: mucous membranes moist, no injection and skin normal, eyes decreased blink frequency Cardiovascular: normal S-1 and S-2 and regular rate and rhythm Respiratory: course breath sounds Musculoskeletal: + peripheral edema with some varela breakdown Skin: skin break down LE Eyes: extraocular muscles intact (EOMI) and pupils equal, round and reactive to light (PERRL), decreased blink frequency NEUROLOGIC EXAMINATION: Mental status: Alert and interactive Oriented hospital Oriented to person Speech fluent with no evidence of aphasia Cranial Nerves smile eye brow raise symmetric, tongue midline Reflexes: Deep tendon reflexes were symmetrical and graded 2/5. Plantar responses were neutral Sensory: to light and cool touch Coordination: finger to nose with essential tremor, resting tremor bilaterally, +cogwheeling bilaterally Gait/Stance: Posture lying in bed Strength: hand client account representative biceps tricep 4+/5 bilaterally, hip flex 4+/5 bilaterally plantar flex ext 5/5 bilaterally Laboratory Results Past 24 Hours: 11/04/16 05:49 11/04/16 05:49 Test 11/03/16 16:20 11/03/16 17:40 11/04/16 05:49 11/04/16 06:02 Immature Granulocyte % (Auto) 0.3 % White Blood Count 9.29 K/uL (4.8-10.8) Red Blood Count 3.53 M/uL (4.7-6.1) 3.35 M/uL (4.7-6.1) Hemoglobin 11.2 g/dL (14.0-18.0) Hematocrit 32.4 % (42-52) Mean Corpuscular Volume 91.8 fL (80-100) 91.9 fL (80-100) Mean Corpuscular Hemoglobin 31.7 pg (25-34) 31.0 pg (25-34) Mean Corpuscular Hemoglobin Concent 34.6 g/dl (32-36) 33.8 g/dl (32-36) Platelet Count 222 K/uL (130-400) Mean Platelet Volume 10.3 fL (7.4-10.4) 9.4 fL (7.4-10.4) Neutrophils (%) (Auto) 64.8 % Lymphocytes (%) (Auto) 14.7 % Monocytes (%) (Auto) 13.9 % Eosinophils (%) (Auto) 5.7 % Basophils (%) (Auto) 0.6 % Neutrophils # (Auto) 6.01 K/uL (1.4-6.5) Lymphocytes # (Auto) 1.37 K/uL (1.2-3.4) Monocytes # (Auto) 1.29 K/uL (0.11-0.59) Eosinophils # (Auto) 0.53 K/uL (0-0.5) Basophils # (Auto) 0.06 K/uL (0-0.2) Immature Granulocyte # (Auto) 0.03 K/uL (0.00-0.02) Prothrombin Time 11.0 SECONDS (9.0-12.0) Prothromb Time International Ratio 1.0 (0.9-1.1) Activated Partial Thromboplast Time 32.7 SECONDS (21.0-31.0) Partial Thromboplastin Ratio 1.3 Total Bilirubin 0.4 mg/dl (0.2-1) Direct Bilirubin < 0.1 mg/dl (0-0.2) Aspartate Amino Transf (AST/SGOT) 29 U/L (15-37) Alanine Aminotransferase (ALT/SGPT) 27 U/L (12-78) Alkaline Phosphatase 83 U/L (45-117) Total Creatine Kinase 221 U/L (39-308) Creatine Kinase MB 13.3 ng/ml (0.5-3.6) Creatine Kinase MB Ratio 6.0 (0-3.0) Troponin I < 0.015 ng/ml (0-0.045) Pro-B-Type Natriuretic Peptide 4592 pg/ml (0-1800) Total Protein 7.7 gm/dl (6.4-8.2) Albumin 3.5 gm/dl (3.4-5.0) Lipase 404 U/L (73-393) Urine Color YELLOW Urine Appearance TURBID (CLEAR) Urine pH 6.5 (4.5-7.5) Urine Specific [place] 1.010 (1.000-1.030) Urine Protein TRACE (NEG) Urine Glucose (UA) NEG (NEG) Urine Ketones NEG (NEG) Urine Occult Blood 2+ (NEG) Urine Nitrite NEG (NEG) Urine Bilirubin NEG (NEG) Urine Urobilinogen NEG (NEG) Urine Leukocyte Esterase LARGE (NEG) Urine WBC (Auto) >30 /hpf (0-5) Urine RBC (Auto) 10-30 /hpf (0-4) Urine Hyaline Casts (Auto) 1-5 /lpf (0-5) Urine Epithelial Cells (Auto) 5-10 /lpf (0-5) Urine Bacteria (Auto) NEG (NEG) Urine Yeast (Auto) (NONE PRSENT) RDW Standard Deviation 51.0 fL (36.4-46.3) RDW Coefficient of Variation 14.9 % (11.5-14.5) Anion Gap 11.0 mmol/L (3-11) Est Creatinine Clear Calc Drug Dose 14.1 ml/min Estimated GFR () 13.4 Estimated GFR (Non- 11.6 BUN/Creatinine Ratio 25.4 (10-20) Osmolality 311 mOsm/kg (280-300) Calcium Level 8.9 mg/dl (8.5-10.1) Phosphorus Level 6.9 mg/dl (2.5-4.9) Magnesium Level 3.3 mg/dl (1.8-2.4) Procalcitonin 0.30 ng/ml (0-0.5) Bedside Glucose 81 mg/dl (70-99) Test 11/04/16 08:05 11/04/16 09:46 Urine Osmolality 337 mOms/kg (500-800) Urine Random Sodium 61 mEq/L Urine Random Potassium 57.2 mEq/L Urine Random Chloride 106 mEq/L Random Vancomycin Level 21.9 mcg/ml Date/Time Source Procedure Growth Status 11/04/16 00:00 Nasal MRSA DNA Surveillance Screen - Final Specimen Positive for MRSA by DNA Probe Complete Imaging CT head-FINDINGS: No acute intracranial hemorrhage, midline shift or mass effect is present. Mild ventricular dilatation is likely due to atrophy. The basilar cisterns are patent. There are no extra-axial collections. Brewer-white differentiation is maintained. There are no findings to suggest acute dural sinus thrombosis or acute territorial infarct. There is extensive intracranial vascular calcification. There are no calvarial abnormalities. Visualized portions of the sinuses and mastoid air cells are clear. White matter hypodensities suggest small vessel disease. Impression 85 year old with extensive PMH with parkinson's disease and essential tremor Plan 1. known parkinson's disease although not diagnosed by neurologist appears he has features 2. would not start medications in the setting if at all 3. would be glad to see as outpatient in neurology 4. optimize metabolic issues and then reevaluate as outpatient 5. PT/OT for discharge needs 6. will follow as needed I have seen and discussed above patient with Dr Santiago Yung, neurology Patient examined and interviewed and case discussed with Michell Berman this is a mixed picture of essential tremor and some parkinsonism with both resting and intentional tremors and some cogwheeling as well No Rx ever given apparently He need to be seen as an outpatient after the current illnesses are resolved as the stress of his metabolic dysfunction and hospitalization may cldearly make any movement disorder appear worse and rx should be based on outpatient status and his functional impairments then rather than now I will check back tomorrow but for now no rx fo either the essential tremor or the parkinsonism Santiago Yung MD
--- NOTE | 2016-11-04 11:33 | CARDIOLOGY CONSULTATION ---
DATE OF CONSULTATION: 11/04/2016 DATE OF CONSULTATION: 11/04/2016. REASON FOR CONSULTATION: Acute renal failure, aortic stenosis, chronic coronary disease with chronic systolic heart failure. HISTORY OF PRESENT ILLNESS: Mr. Aparicio is an 85-year-old male who is well known to the cardiology service. He presented with slurred speech and generalized weakness. He was noted to have a creatinine of 5.0 on admission. He is chronically maintained on high dose Lasix for chronic heart failure, and edema. He carries a history of chronic class 3 angina, CKD with a baseline creatinine of approximately 2, moderate aortic stenosis, and mild LV systolic dysfunction with ejection fraction of 40-45%. The patient was admitted to the intensive care unit. He is diagnosed with urosepsis in addition to his acute renal failure. He is receiving gentle IV hydration. He is awake and alert. Denies chest pain or shortness of breath. There is no significant lower extremity edema which is changed from baseline. In general, the patient has +1 to 2 pitting pretibial and pedal edema. Denies orthopnea or PND. Son and caregiver are present at the bedside. The patient also notes chronic musculoskeletal joint pain which is attributed to arthritis. He offers no other complaints at this time. REVIEW OF SYSTEMS: The pertinent positive noted above, a comprehensive 10-system review is otherwise negative. PAST MEDICAL HISTORY: 1. Coronary disease, status post coronary artery bypass grafting 1981. 2. Inferior ST elevation AR with stenting with drug-eluting stents to the mid RCA x2 and circumflex 2005. Noted patent [place] to LAD and occluded SVG to OM at that time. 3. Non-ST elevation myocardial infarction September 2015 managed medically. 4. Moderate aortic stenosis. 5. Moderate aortic regurgitation. 6. Chronic kidney disease stage IV. 7. Dyslipidemia. 8. BPH. 9. Obesity. 10. Chronic systolic heart failure. 11. Chronic stable class 3 angina. 12. Diabetes type 2. 13. Obstructive sleep apnea. PAST SURGICAL HISTORY: As noted above. SOCIAL HISTORY: Former tobacco abuse with [id number] history, quitting in 1968. He currently was residing at [facility]; however this was only a temporary measure. FAMILY HISTORY: Negative for premature CAD or sudden cardiac , however noncontributory given patient's advanced age. ALLERGIES: AMOXICILLIN, ZOLPIDEM. CURRENT OUTPATIENT MEDICATIONS: 1. Lasix 120 mg 3 times daily. 2. Allopurinol 300 mg daily. 3. Zoloft 50 mg daily. 4. Januvia 50 mg daily. 5. Imdur 60 mg daily. 6. Carvedilol 3.125 mg twice daily. 7. Potassium chloride 40 mEq 3 times daily with additional 2 tablets on Mondays and Fridays with metolazone. 8. Metolazone 2.5 mg prior to a.m. Lasix on Monday and Monday. 9. Lisinopril 2.5 mg daily. 10. Glipizide 15 mg daily. 11. Proscar 5 mg daily. 12. Plavix 75 mg daily. 13. DuoNeb daily every 6 hours as needed. 14. Aspirin 81 mg daily. ECG this morning sinus rhythm, nonspecific interventricular conduction block. LABORATORY DATA: Initial BMP: Sodium 120, potassium is 6.7, chloride is 92, CO2 is 25, BUN is 118, creatinine 5.00. Random glucose of 47 and proBNP 4592. Repeat BMP performed at 0549: Sodium 132, potassium 5.2, chloride 98, CO2 23, BUN is 109, creatinine is 4.30. INR is 1.0. White blood cell count is 8.76, hemoglobin is 10.4, platelet count is 191. Renal ultrasound read as normal without evidence of hydronephrosis. Chest x-ray on admission, mild congestion. PHYSICAL EXAMINATION: VITAL SIGNS: Temperature is 36.7 degrees centigrade, pulse 76 beats per minute and regular, respiratory rate is 20 breaths per minute, blood pressure 126/64. SAO2 is 99% on 4 liters nasal cannula. GENERAL: NAD, chronically ill, awake, alert and oriented x3. HEAD, EYES, EARS, NOSE, AND THROAT: His mucous membranes are moist. No scleral icterus. Conjunctivae pink. NECK: Veins are flat without JVD. HEART: Regular with a normal S1 and S2. There is a 2/6 systolic ejection murmur heard best at the right second intercostal space. LUNGS: Demonstrates scant crackles at the bases bilaterally. ABDOMEN: Soft, nontender. No rebound or guarding. Normal bowel sounds. EXTREMITIES: Warm and dry without clubbing, cyanosis or edema. NEUROLOGIC EXAMINATION: Demonstrates no focal motor deficit. FINAL IMPRESSION: 1. Acute renal insufficiency superimposed on chronic kidney disease related to urosepsis and chronic high dose diuretic therapy. The patient appears volume depleted. 2. Chronic systolic heart failure -- compensated/patient appears volume depleted. 3. Chronic coronary disease with chronic stable angina. 4. Moderate aortic stenosis. PLAN AND RECOMMENDATIONS: Diuretics have been placed on hold. The patient is receiving gentle hydration. All potassium supplements have also been placed on hold in addition to CHARO inhibitor. Repeat basic metabolic panel demonstrates improved creatinine as well as decreased serum potassium level. We will continue to monitor. He will likely require reduction in his diuretic dosing prior to discharge. Nephrology input appreciated. Antibiotics as per internal medicine. Culture is pending at this time. He will continue his other cardiovascular medications including aspirin, Plavix, isosorbide monohydrate, carvedilol as previously ordered. Will continue to follow during hospitalization. Thank you for allowing me to take part in the care of your patient.
--- NOTE | 2016-11-04 11:34 | DIAGNOSTIC IMAGING REPORT ---
CHEST ONE VIEW PORTABLE CLINICAL HISTORY: monitor for overload dyspnea COMPARISON STUDY: 11/03/2016 FINDINGS: Mild stable cardiomegaly. Diaphragms are smooth. Minimal atelectasis left base. Lungs otherwise are clear. Chronic prominence of pulmonary vasculature. IMPRESSION: Chronic change. Mild stable cardiomegaly. Minimal atelectasis left base. Electronically signed by: Adam Bond M.D. 11/04/2016 11:32 AM Dictated Date/Time: 11/04/2016 11:32 AM
--- NOTE | 2016-11-04 14:22 | Palliative Care Consultation ---
Consultation Date of Consultation: November 04, 2016. Requesting Physician: Dr. Burns Attending Physician: Dr. Mejia, Dr. Whitney, Dr. Burns Reason for Consultation: Goals of care History of Present Illness This 76 year old male patient with a PMH of CAD, ischemic cardiomyopathy/ CHF, asthma, CKD stage IV, DM type 2, [place], HLD, FILIBERTO, BPH, CABG, and shingles presented to the ED yesterday with complaints of increased weakness and lower extremity edema. He was in the hospital in June for CHF exacerbation, was discharged to [facility] for rehab and eventually returned home with his live-in caregiver, Jennifer. He presents now with UTI, BUN/Cr 118/5.0, K 6.7, blood glucose 47. Chest x-ray - early congestive failure. CT of the head - no acute intracranial findings. EKG was in sinus rhythm with first-degree heart block, rate of 80, left axis deviation, nonspecific intraventricular block with ST-T wave changes. No significant change compared with EKG of 16 of September. Patient admitted to ICU, question of dialysis but patient diuresed well and creatinine is down to mid 4. He is known to palliative care service last admission. Palliative consulted again to discuss goals of care. I met with the patient in room 109. He is awake alert and oriented, of sound- mind an able to make decisions for himself. Patient states that his goal at this point is for comfort, he DOES NOT want dialysis. He stated this several times, also confirmed that he is a DNR/DNI. Patient has no pain or SOB at this time, looks comfortable in bed. Patient's goal is to get out of the hospital, but he is concerned that he may not be able to go home. He said his condition at home is declining-- no longer really able to ambulate and has had several falls at home. His wish at this time is to continue conservative medical management in hopes of getting as well as possible. If he improves and has some rehab potential, he'd be willing to go to SNF. If he does not improve and is going to be mostly in bed, he'd be okay and agreeable to going straight home with hospice. I called the patient's son/POA, Frank Aparicio and explained all of the above. He is in agreement and is okay with patient being transferred out of ICU as well. Past Medical/Surgical History Medical History: as above Social History Smoking Status: Former Smoker History of Alcohol Use: No Drug Use: none Marital Status: Housing Status: other Occupation Status: retired Review of Systems Constitutional: + weakness ENT: + hearing loss (normal for patient) Respiratory: + dyspnea on exertion, No cough, No dyspnea at rest Cardiac: + edema, No chest pain Abdomen: + problem reported (no BM two days), No nausea, No pain, No vomiting Male : No problem reported Psychiatric: No anxiety, No depression symptoms Allergies Coded Allergies: Zolpidem (Verified Allergy, Severe, SOB, MUSCLES "LOCK UP" PER [facility], ) DELIRIUM. Confusion. Insomnia. Insulin Aspart (Verified Adverse Reaction, Intermediate, REDDENED RASH ALL OVER BODY, 11/03/16) Insulin Glargine (Verified Adverse Reaction, Intermediate, REDDENED RASH ALL OVER BODY, 11/03/16) Amoxicillin (Verified Adverse Reaction, Unknown, NIGHTMARES, 11/03/16) Medications Current Inpatient Medications Medications (Trade) Dose Ordered Sig/Vijay Route Start Time Stop Time Status Last Admin Dose Admin Heparin Sodium (Porcine) (Heparin Sq 5000 Unit/0.5ml) 5,000 unit Q8 SQ 11/03/16 22:00 12/03/16 21:59 11/04/16 13:48 5,000 UNIT Acetaminophen (Tylenol Tab) 650 mg Q4H PRN PO 11/03/16 19:00 12/03/16 18:59 Ondansetron HCl (Zofran Inj) 4 mg Q6H PRN IV 11/03/16 19:00 12/03/16 18:59 Aspirin (Ecotrin Tab) 81 mg QAM PO 11/04/16 09:00 12/04/16 08:59 11/04/16 09:02 81 MG Carvedilol (Coreg Tab) 3.125 mg BID PO 11/03/16 21:00 12/03/16 20:59 Clopidogrel Bisulfate (plAVix TAB) 75 mg QAM PO 11/04/16 09:00 12/04/16 08:59 11/04/16 09:02 75 MG Docusate Sodium (coLACE CAP) 100 mg BID PO 11/03/16 21:00 12/03/16 20:59 11/04/16 09:02 100 MG Finasteride (Proscar Tab) 5 mg QAM PO 11/04/16 09:00 12/04/16 08:59 11/04/16 09:02 5 MG Albuterol/ Ipratropium (Duoneb) 3 ml Q6 PRN INH 11/03/16 19:00 12/03/16 18:59 Isosorbide Mononitrate (Imdur Ext Rel Tab) 60 mg QAM PO 11/04/16 09:00 12/04/16 08:59 Senna (Senokot Tab) 8.6 mg QAM PO 11/04/16 09:00 12/04/16 08:59 11/04/16 09:03 8.6 MG Sertraline HCl (Zoloft Tab) 50 mg QAM PO 11/04/16 09:00 12/04/16 08:59 11/04/16 09:03 50 MG Triamcinolone Acetonide (Kenalog 0.1% Cream) 1 appln BID PRN EXT 11/03/16 19:00 12/03/16 18:59 Polyethylene (Miralax Powder Packet) 17 gm DAILY PRN PO 11/03/16 19:30 12/03/16 19:29 Glucose (Glucose 40% Gel) 15-30 GRAMS 15 GRAMS... UD PRN PO 11/03/16 21:15 12/03/16 21:14 Glucose (Glucose Chew Tab) 4-8 Tablets 4 Tabl... UD PRN PO 11/03/16 21:15 12/03/16 21:14 Dextrose (Dextrose 50% 50ML Syringe) 25-50ML OF 50% DW IV FOR... UD PRN IV 11/03/16 21:15 12/03/16 21:14 11/04/16 04:25 25 ML Glucagon 1 mg 1 mg UD PRN SQ 11/03/16 21:15 12/03/16 21:14 Sodium Bicarbonate 75 meq/Dextrose 1,075 ml @ 50 mls/hr [id number] IV 11/04/16 11:15 12/04/16 11:14 11/04/16 11:56 50 MLS/HR Ceftriaxone Sodium/Dextrose (Rocephin Inj/ Dextrose Add-[place] 50ML) 70 ml @ 100 mls/hr Q24H IV 11/04/16 18:00 11/12/16 18:41 Physical Exam Date Time Temp Pulse Resp B/P Pulse Ox O2 Delivery O2 Flow Rate FiO2 11/04/16 14:03 78 18 103/65 97 3.0 11/04/16 14:03 36.7 80 24 98 3.0 11/04/16 13:33 77 16 93/78 99 Nasal Cannula 3.0 11/04/16 13:03 36.7 79 19 113/52 99 11/04/16 12:33 77 20 100/55 99 Nasal Cannula 3.0 11/04/16 12:03 100 Nasal Cannula 3.0 11/04/16 12:03 80 24 100/58 98 11/04/16 11:32 80 20 126/64 100 Nasal Cannula 4.0 11/04/16 11:17 74 20 110/58 11/04/16 11:03 36.7 79 19 95/60 98 11/04/16 10:33 76 18 124/76 99 11/04/16 10:03 36.7 76 20 126/64 99 Nasal Cannula 4.0 11/04/16 09:33 82 23 133/62 11/04/16 09:19 104/60 11/04/16 09:03 79 21 112/63 99 Nasal Cannula 4.0 11/04/16 08:48 78 17 133/61 99 Nasal Cannula 4.0 11/04/16 08:33 36.7 74 18 99/58 99 Nasal Cannula 4.0 11/04/16 08:18 75 14 111/59 99 11/04/16 08:15 75 24 99 Nasal Cannula 4.0 11/04/16 08:12 78 24 115/53 99 11/04/16 08:06 100 Nasal Cannula 4.0 11/04/16 08:03 77 19 77/41 98 Nasal Cannula 4.0 11/04/16 07:45 78 19 99 Nasal Cannula 4.0 11/04/16 07:34 19 86/45 91 11/04/16 07:15 72 13 98 BiPAP 2.0 11/04/16 04:00 99 BiPAP 11/04/16 02:00 72 13 109/51 97 BiPAP 2.0 11/04/16 00:36 100 2.0 11/03/16 23:27 36.3 67 20 115/40 100 Nasal Cannula 4.0 11/03/16 21:58 76/34 11/03/16 21:40 36.4 75 20 110/65 100 Nasal Cannula 4.0 11/03/16 19:58 77 18 98/55 100 11/03/16 19:20 80 21 11/03/16 19:16 92/58 11/03/16 19:15 78 18 11/03/16 19:10 80 21 89/57 100 11/03/16 19:05 80 26 89/45 11/03/16 19:03 94/50 11/03/16 19:01 73/52 11/03/16 19:00 80 22 11/03/16 18:56 86/61 11/03/16 18:55 79 21 11/03/16 18:50 87/48 11/03/16 18:47 76 19 100 11/03/16 18:46 84/51 11/03/16 18:42 80 20 94/51 100 11/03/16 18:37 78 21 100 11/03/16 18:35 95/51 11/03/16 18:32 80 21 100 11/03/16 18:30 78/65 11/03/16 18:27 79 27 100 11/03/16 18:26 91/49 11/03/16 18:22 78 17 100 11/03/16 18:20 83/40 11/03/16 18:17 76 22 99 11/03/16 18:15 83/47 11/03/16 18:12 75 21 100 11/03/16 18:11 86/50 11/03/16 18:07 75 23 11/03/16 18:02 72 15 93 11/03/16 18:01 86/41 11/03/16 17:57 66 17 95 11/03/16 17:52 65 21 96 11/03/16 17:47 66 20 96 11/03/16 17:42 66 20 97 11/03/16 17:37 68 24 98 11/03/16 17:32 68 23 96 11/03/16 17:31 102/58 11/03/16 17:27 65 18 98 11/03/16 17:22 69 18 96 11/03/16 17:17 68 16 96 11/03/16 17:13 67 21 103/51 97 Room Air 11/03/16 17:12 68 24 103/51 97 11/03/16 16:27 78 20 11/03/16 16:22 67 20 11/03/16 16:17 66 16 11/03/16 16:12 67 19 98 11/03/16 16:07 68 14 97 11/03/16 16:02 68 15 98 11/03/16 15:57 77 16 11/03/16 15:52 66 20 95 11/03/16 15:47 65 25 96 11/03/16 15:14 36.3 68 18 96/51 96 Room Air 11/03/16 15:05 96/51 General Appearance: no apparent distress, + obese ENT: + pertinent finding (hard of hearing) Neck: supple, no JVD Respiratory: no respiratory distress, no accessory muscle use, + decreased breath sounds (bilateral bases), + wheezing (faint expiratory) Cardiovascular: regular rate, rhythm, + pertinent finding (trace pitting edema to bilateral lower extremities) Abdomen: normal bowel sounds, non tender, + distended (normal body habitus for patient) Neurologic/Psychiatric: alert, normal mood/affect, oriented x 3 Laboratory Results Last 24 Hours Test 11/03/16 16:20 11/03/16 17:40 11/03/16 18:15 11/03/16 21:59 White Blood Count 9.29 K/uL Red Blood Count 3.53 M/uL Hemoglobin 11.2 g/dL Hematocrit 32.4 % Mean Corpuscular Volume 91.8 fL Mean Corpuscular Hemoglobin 31.7 pg Mean Corpuscular Hemoglobin Concent 34.6 g/dl Platelet Count 222 K/uL Mean Platelet Volume 10.3 fL Neutrophils (%) (Auto) 64.8 % Lymphocytes (%) (Auto) 14.7 % Monocytes (%) (Auto) 13.9 % Eosinophils (%) (Auto) 5.7 % Basophils (%) (Auto) 0.6 % Neutrophils # (Auto) 6.01 K/uL Lymphocytes # (Auto) 1.37 K/uL Monocytes # (Auto) 1.29 K/uL Eosinophils # (Auto) 0.53 K/uL Basophils # (Auto) 0.06 K/uL RDW Standard Deviation 50.3 fL RDW Coefficient of Variation 14.8 % Immature Granulocyte % (Auto) 0.3 % Immature Granulocyte # (Auto) 0.03 K/uL Prothrombin Time 11.0 SECONDS Prothromb Time International Ratio 1.0 Activated Partial Thromboplast Time 32.7 SECONDS Partial Thromboplastin Ratio 1.3 Sodium Level 128 mmol/L Potassium Level 6.7 mmol/L Chloride Level 92 mmol/L Carbon Dioxide Level 25 mmol/L Anion Gap 11.0 mmol/L Blood Urea Nitrogen 118 mg/dl Creatinine 5.00 mg/dl Est Creatinine Clear Calc Drug Dose 12.1 ml/min Estimated GFR () 11.2 Estimated GFR (Non- 9.6 BUN/Creatinine Ratio 23.5 Random Glucose 47 mg/dl Calcium Level 9.2 mg/dl Phosphorus Level 8.5 mg/dl Magnesium Level 3.5 mg/dl Total Bilirubin 0.4 mg/dl Direct Bilirubin < 0.1 mg/dl Aspartate Amino Transf (AST/SGOT) 29 U/L Alanine Aminotransferase (ALT/SGPT) 27 U/L Alkaline Phosphatase 83 U/L Total Creatine Kinase 221 U/L Creatine Kinase MB 13.3 ng/ml Creatine Kinase MB Ratio 6.0 Troponin I < 0.015 ng/ml Pro-B-Type Natriuretic Peptide 4592 pg/ml Total Protein 7.7 gm/dl Albumin 3.5 gm/dl Lipase 404 U/L Urine Color YELLOW Urine Appearance TURBID Urine pH 6.5 Urine Specific [place] 1.010 Urine Protein TRACE Urine Glucose (UA) NEG Urine Ketones NEG Urine Occult Blood 2+ Urine Nitrite NEG Urine Bilirubin NEG Urine Urobilinogen NEG Urine Leukocyte Esterase LARGE Urine WBC (Auto) >30 /hpf Urine RBC (Auto) 10-30 /hpf Urine Hyaline Casts (Auto) 1-5 /lpf Urine Epithelial Cells (Auto) 5-10 /lpf Urine Bacteria (Auto) NEG Urine Yeast (Auto) Bedside Glucose 266 mg/dl 180 mg/dl Test 11/03/16 22:00 11/03/16 22:56 11/03/16 23:11 11/04/16 00:31 Sodium Level 131 mmol/L Potassium Level 6.0 mmol/L Chloride Level 97 mmol/L Carbon Dioxide Level 24 mmol/L Anion Gap 10.0 mmol/L Blood Urea Nitrogen 119 mg/dl Creatinine 4.50 mg/dl Est Creatinine Clear Calc Drug Dose 13.5 ml/min Estimated GFR () 12.7 Estimated GFR (Non- 10.9 BUN/Creatinine Ratio 26.5 Random Glucose 40 mg/dl Calcium Level 8.7 mg/dl Magnesium Level 3.3 mg/dl Bedside Glucose 46 mg/dl 147 mg/dl 100 mg/dl Test 11/04/16 01:23 11/04/16 02:13 11/04/16 03:11 11/04/16 04:10 Bedside Glucose 70 mg/dl 138 mg/dl 99 mg/dl 74 mg/dl Test 11/04/16 05:13 11/04/16 05:49 11/04/16 06:02 11/04/16 08:05 Bedside Glucose 101 mg/dl 81 mg/dl White Blood Count 8.76 K/uL Red Blood Count 3.35 M/uL Hemoglobin 10.4 g/dL Hematocrit 30.8 % Mean Corpuscular Volume 91.9 fL Mean Corpuscular Hemoglobin 31.0 pg Mean Corpuscular Hemoglobin Concent 33.8 g/dl RDW Standard Deviation 51.0 fL RDW Coefficient of Variation 14.9 % Platelet Count 191 K/uL Mean Platelet Volume 9.4 fL Sodium Level 132 mmol/L Potassium Level 5.2 mmol/L Chloride Level 98 mmol/L Carbon Dioxide Level 23 mmol/L Anion Gap 11.0 mmol/L Blood Urea Nitrogen 109 mg/dl Creatinine 4.30 mg/dl Est Creatinine Clear Calc Drug Dose 14.1 ml/min Estimated GFR () 13.4 Estimated GFR (Non- 11.6 BUN/Creatinine Ratio 25.4 Random Glucose 82 mg/dl Osmolality 311 mOsm/kg Calcium Level 8.9 mg/dl Phosphorus Level 6.9 mg/dl Magnesium Level 3.3 mg/dl Procalcitonin 0.30 ng/ml Urine Osmolality 337 mOms/kg Urine Random Sodium 61 mEq/L Urine Random Potassium 57.2 mEq/L Urine Random Chloride 106 mEq/L Test 11/04/16 08:14 11/04/16 09:16 11/04/16 09:46 11/04/16 12:04 Bedside Glucose 100 mg/dl 114 mg/dl 166 mg/dl Random Vancomycin Level 21.9 mcg/ml Assessment & Plan Palliative Performance Scale: 30 % (unable to get OOB at this time, decreased intake, dependent with care) Problem list: Weakness MORFIN Acute renal failure Hyperkalemia ?UTI CHF, CAD, DM type 2 Hypoglycemia Goals of care (Z51.5) Palliative care recommendations: discussed with patient, son/POA Frank Alessandra , and Dr. Whitney. -DNR/DNI -Patient does not want dialysis -Continue current conservative medical treatment with goal of getting patient to his baseline -Depending on hospital course, patient's wishes, and rehab potential-- home with hospice vs. SNF. See HPI. -Can do POLST before discharge -Transfer out of ICU -No pain or discomfort Thank you kindly for this consult. Will follow as needed.
[2016-11-04] MEDS: CEFTRIAXONE SOD INJ 2,000 MG in DEXTROSE 5% ADD-VANTAGE 50ML 50 ML IV SCH (17:43)
[2016-11-04] MEDS: ACETAMINOPHEN 325 MG TAB PO PRN (21:04)
[2016-11-05] VITALS (18 sets, daily range): BP systolic 88–130; BP diastolic 42–63; PULSE 68–82; TEMP 36.4–36.7; O2SAT 91–100
[2016-11-05 05:46] LABS: BASO % 1.1 %; BASO ABS # 0.08 K/uL (0-0.2); COMPLETE YES; HEMATOCRIT 29.3 % (42-52); IG% 0.3 %; LYMPH % 16.1 %; LYMPH ABS # 1.21 K/uL (1.2-3.4); MEAN CELL VOLUME 91.6 fL (80-100); MEAN CORPUSCULAR HEMOGLOBIN 30.3 pg (25-34); MEAN CORPUSCULAR HGB CONC 33.1 g/dl (32-36); MEAN PLATELET VOLUME 9.2 fL (7.4-10.4); NEUT % 62.5 %; PLATELET COUNT 157 K/uL (130-400); WHITE BLOOD COUNT 7.53 K/uL (4.8-10.8)
[2016-11-05] MEDS: HEPARIN SOD 5000 UNIT/0.5 ML CARP SQ SCH ×3 (05:51→21:56)
[2016-11-05 06:23] LABS: BUN/CREATININE RATIO 25.5 (10-20); CALCIUM 8.2 mg/dl (8.5-10.1); CREATININE 3.7 mg/dl (0.60-1.40); POTASSIUM 4.3 mmol/L (3.5-5.1)
[2016-11-05] MEDS: CARVEDILOL 3.125 MG TAB PO SCH ×2 (07:36→20:11)
[2016-11-05] MEDS: CLOPIDOGREL BISULFATE 75 MG TAB PO SCH (07:38)
[2016-11-05] MEDS: SERTRALINE HCL 50 MG TAB PO SCH (07:38)
[2016-11-05] MEDS: DOCUSATE SODIUM 100 MG CAP PO SCH ×2 (07:38→20:10)
[2016-11-05] MEDS: ASPIRIN 81 MG ECTAB PO SCH (07:38)
[2016-11-05] MEDS: SENNA 8.6 MG TAB PO SCH (07:38)
[2016-11-05] MEDS: ISOSORBIDE MONONITRATE 60 MG TABCR PO SCH (07:39)
[2016-11-05] MEDS: FINASTERIDE 5 MG TAB PO SCH (07:39)
--- NOTE | 2016-11-05 07:53 | Nephrology Progress Note ---
Nephrology Progress Note Date of Service: November 05, 2016. Subjective c/o BL knee pain; not dyspneic, no n/v; still very thirsty; 6L UOP yesterday; on D10 w/ 75 mEq Na bic at 50 mL hourly >> low BG have stabilized as have bp Objective Date Time Temp Pulse Resp B/P Pulse Ox O2 Delivery O2 Flow Rate FiO2 11/05/16 07:34 36.5 81 23 88/47 99 Nasal Cannula 2.0 11/05/16 04:14 100 Nasal Cannula 3.0 11/05/16 04:03 74 15 114/58 92 11/05/16 04:00 36.7 73 18 95 11/05/16 03:03 70 12 100/50 96 11/05/16 03:00 72 16 99 11/05/16 02:34 73 21 130/56 97 11/05/16 02:03 73 21 115/51 91 11/05/16 02:00 69 21 96 11/05/16 01:33 70 15 127/63 98 11/05/16 01:03 70 17 123/48 92 11/05/16 01:00 68 18 91 11/05/16 00:33 70 18 102/51 92 11/05/16 00:04 69 14 96/52 98 11/05/16 00:00 100 Nasal Cannula 3.0 11/05/16 00:00 36.5 69 19 98 11/04/16 23:33 69 21 95/46 95 11/04/16 23:03 70 15 106/55 98 11/04/16 23:00 71 16 98 11/04/16 22:33 71 16 118/56 97 11/04/16 22:31 73 100 2.0 11/04/16 22:03 72 22 122/58 99 11/04/16 22:00 73 19 100 11/04/16 21:32 77 24 112/63 99 11/04/16 21:03 77 18 107/56 100 11/04/16 21:00 78 20 99 11/04/16 20:33 79 22 109/58 99 11/04/16 20:02 76 18 123/68 100 11/04/16 20:00 100 Nasal Cannula 3.0 11/04/16 20:00 36.4 76 21 100 11/04/16 19:33 79 21 116/61 99 11/04/16 19:03 77 21 121/58 99 11/04/16 19:00 78 22 99 11/04/16 17:02 36.6 77 20 110/53 99 Nasal Cannula 3.0 11/04/16 16:33 74 19 111/59 99 11/04/16 16:03 78 17 117/57 100 Nasal Cannula 3.0 11/04/16 16:02 99 Nasal Cannula 3.0 11/04/16 15:33 78 20 121/57 100 11/04/16 15:02 77 16 123/61 99 Nasal Cannula 3.0 11/04/16 14:33 36.6 79 22 122/64 99 11/04/16 14:03 78 18 103/65 97 3.0 11/04/16 14:03 36.7 80 24 98 3.0 11/04/16 13:33 77 16 93/78 99 Nasal Cannula 3.0 11/04/16 13:03 36.7 79 19 113/52 99 11/04/16 12:33 77 20 100/55 99 Nasal Cannula 3.0 11/04/16 12:03 100 Nasal Cannula 3.0 11/04/16 12:03 80 24 100/58 98 11/04/16 11:32 80 20 126/64 100 Nasal Cannula 4.0 11/04/16 11:17 74 20 110/58 11/04/16 11:03 36.7 79 19 95/60 98 11/04/16 10:33 76 18 124/76 99 11/04/16 10:03 36.7 76 20 126/64 99 Nasal Cannula 4.0 11/04/16 09:33 82 23 133/62 11/04/16 09:19 104/60 11/04/16 09:03 79 21 112/63 99 Nasal Cannula 4.0 11/04/16 08:48 78 17 133/61 99 Nasal Cannula 4.0 11/04/16 08:33 36.7 74 18 99/58 99 Nasal Cannula 4.0 11/04/16 08:18 75 14 111/59 99 11/04/16 08:15 75 24 99 Nasal Cannula 4.0 11/04/16 08:12 78 24 115/53 99 11/04/16 08:06 100 Nasal Cannula 4.0 11/04/16 08:03 77 19 77/41 98 Nasal Cannula 4.0 Physical Exam: General - NAD, on 02nc, oriented x 3, lying flat w/o distress Eyes - PERRL, EOMI, nonicteric ENT - dry MM Neck - Supple Lungs - diminished bilaterally but clear Heart - RRR, 3/6 SM Abdomen - BS+, soft, nontender, distended, lujan Extremities - 1+ L pedal edema Neuro - luu, fluent speech; intermittent resting tremor BLUE Current Inpatient Medications Medications (Trade) Dose Ordered Sig/Vijay Route Start Time Stop Time Status Last Admin Dose Admin Heparin Sodium (Porcine) (Heparin Sq 5000 Unit/0.5ml) 5,000 unit Q8 SQ 11/03/16 22:00 12/03/16 21:59 11/05/16 05:51 5,000 UNIT Acetaminophen (Tylenol Tab) 650 mg Q4H PRN PO 11/03/16 19:00 12/03/16 18:59 11/04/16 21:04 650 MG Ondansetron HCl (Zofran Inj) 4 mg Q6H PRN IV 11/03/16 19:00 12/03/16 18:59 Aspirin (Ecotrin Tab) 81 mg QAM PO 11/04/16 09:00 12/04/16 08:59 11/05/16 07:38 81 MG Carvedilol (Coreg Tab) 3.125 mg BID PO 11/03/16 21:00 12/03/16 20:59 11/04/16 20:42 3.125 MG Clopidogrel Bisulfate (plAVix TAB) 75 mg QAM PO 11/04/16 09:00 12/04/16 08:59 11/05/16 07:38 75 MG Docusate Sodium (coLACE CAP) 100 mg BID PO 11/03/16 21:00 12/03/16 20:59 11/05/16 07:38 100 MG Finasteride (Proscar Tab) 5 mg QAM PO 11/04/16 09:00 12/04/16 08:59 11/05/16 07:39 5 MG Albuterol/ Ipratropium (Duoneb) 3 ml Q6 PRN INH 11/03/16 19:00 12/03/16 18:59 Isosorbide Mononitrate (Imdur Ext Rel Tab) 60 mg QAM PO 11/04/16 09:00 12/04/16 08:59 Senna (Senokot Tab) 8.6 mg QAM PO 11/04/16 09:00 12/04/16 08:59 11/05/16 07:38 8.6 MG Sertraline HCl (Zoloft Tab) 50 mg QAM PO 11/04/16 09:00 12/04/16 08:59 11/05/16 07:38 50 MG Triamcinolone Acetonide (Kenalog 0.1% Cream) 1 appln BID PRN EXT 11/03/16 19:00 12/03/16 18:59 Polyethylene (Miralax Powder Packet) 17 gm DAILY PRN PO 11/03/16 19:30 12/03/16 19:29 Glucose (Glucose 40% Gel) 15-30 GRAMS 15 GRAMS... UD PRN PO 11/03/16 21:15 12/03/16 21:14 Glucose (Glucose Chew Tab) 4-8 Tablets 4 Tabl... UD PRN PO 11/03/16 21:15 12/03/16 21:14 Dextrose (Dextrose 50% 50ML Syringe) 25-50ML OF 50% DW IV FOR... UD PRN IV 11/03/16 21:15 12/03/16 21:14 11/04/16 04:25 25 ML Glucagon 1 mg 1 mg UD PRN SQ 11/03/16 21:15 12/03/16 21:14 Sodium Bicarbonate 75 meq/Dextrose 1,075 ml @ 50 mls/hr [id number] IV 11/04/16 11:15 12/04/16 11:14 11/04/16 11:56 50 MLS/HR Ceftriaxone Sodium/Dextrose (Rocephin Inj/ Dextrose Add-Reddick 50ML) 70 ml @ 100 mls/hr Q24H IV 11/04/16 18:00 11/12/16 18:41 11/04/16 17:43 100 MLS/HR Last 24 Hours Test 11/04/16 08:05 11/04/16 08:14 11/04/16 09:16 11/04/16 09:46 Urine Osmolality 337 mOms/kg Urine Random Sodium 61 mEq/L Urine Random Potassium 57.2 mEq/L Urine Random Chloride 106 mEq/L Bedside Glucose 100 mg/dl 114 mg/dl Random Vancomycin Level 21.9 mcg/ml Test 11/04/16 12:04 11/04/16 13:42 11/04/16 16:27 11/04/16 17:03 Bedside Glucose 166 mg/dl 165 mg/dl 84 mg/dl 84 mg/dl Test 11/04/16 18:17 11/04/16 21:33 11/05/16 00:24 11/05/16 03:51 Bedside Glucose 126 mg/dl 115 mg/dl 112 mg/dl 116 mg/dl Test 11/05/16 05:35 White Blood Count 7.53 K/uL Red Blood Count 3.20 M/uL Hemoglobin 9.7 g/dL Hematocrit 29.3 % Mean Corpuscular Volume 91.6 fL Mean Corpuscular Hemoglobin 30.3 pg Mean Corpuscular Hemoglobin Concent 33.1 g/dl Platelet Count 157 K/uL Mean Platelet Volume 9.2 fL Neutrophils (%) (Auto) 62.5 % Lymphocytes (%) (Auto) 16.1 % Monocytes (%) (Auto) 12.0 % Eosinophils (%) (Auto) 8.0 % Basophils (%) (Auto) 1.1 % Neutrophils # (Auto) 4.72 K/uL Lymphocytes # (Auto) 1.21 K/uL Monocytes # (Auto) 0.90 K/uL Eosinophils # (Auto) 0.60 K/uL Basophils # (Auto) 0.08 K/uL RDW Standard Deviation 50.0 fL RDW Coefficient of Variation 14.7 % Immature Granulocyte % (Auto) 0.3 % Immature Granulocyte # (Auto) 0.02 K/uL Sodium Level 131 mmol/L Potassium Level 4.3 mmol/L Chloride Level 94 mmol/L Carbon Dioxide Level 29 mmol/L Anion Gap 8.0 mmol/L Blood Urea Nitrogen 94 mg/dl Creatinine 3.70 mg/dl Est Creatinine Clear Calc Drug Dose 16.7 ml/min Estimated GFR () 16.1 Estimated GFR (Non- 13.9 BUN/Creatinine Ratio 25.5 Random Glucose 99 mg/dl Calcium Level 8.2 mg/dl Assessment & Plan 85 y/o M w/ ischemic 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 Inflamed but not necessarily infected urine; blood/urine cxs pending> urine w/ > 100K GPC. Renal u/s unremarkable. On ceftriaxone currently; had vanco as well. 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 sodium improving; chemistries acceptable at this time. polyuria should slow over next 12-36 hrs -daily bmp ok for now -strict I/O -f/u pending cxs; monitor vanco levels if drug continued -diuretics on hold currently; would use prn only at this point -cont 1.8L daily fluid limit -consider changing D10 w/ 75 mEq Na bic at 50 mL hourly to D5W1/2NS same rate; no longer needs bicarb Appreciate consultation; will follow with you.
--- NOTE | 2016-11-05 08:29 | Progress Note ---
Internal Med Progress Note Date of Service: November 05, 2016. Provider Documentation: SUBJECTIVE: Patient is seen and examined at bedside. Feels better today. Denies chest pain, Abd pain. Has Chronic SOB. Offers no complaints. Family at bedside. OBJECTIVE: Vital Signs-as noted below Physical Exam: Vitals signs as noted above General Appearance:Moderately built and nourished, no apparent distress, + Tremor Head: normocephalic, Atraumatic Eyes: normal inspection, EOMI, PERRL Neck: supple, Trachea midline Respiratory/Chest: Normal breath sounds, CTA Cardiovascular: S1, S2, + systolic murmur Abdomen/GI:Soft, Non tender, Bowel sounds present Extremities/Musculoskelatal:normal inspection, Trace edema Neurologic/Psych:AAOX3, grossly no focal neurological deficits Skin: normal color, warm Lab data as noted below. 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 Likely secondary to Diuretics, CHARO inhibitors Baseline Cr:Low 2s Continue IV fluids per Nephrology Avoid Nephrotoxic agents Renal USD:Unremarkable Hold diuretics, lisinopril for now Appreciate Nephrology input Monitor renal function Renal function slowly improving HYPERKALEMIA: Resolved Secondary to ARF and chronic potassium supplements Received calcium gluconate, dextrose and insulin, bicarbonate No EKG changes Monitor HYPOGLYCEMIA: H/O DM II, Patient on glipizide Hold all diabetic meds for now Continue IV fluids Monitor glucose level Hypoglycemia protocol, ISS HYPOVOLEMIC HYPONATREMIA: Monitor sodium levels Continue fluid restriction: 1.8 litres per day CAD S/P CABG and stent placement: Continue ASA, Plavix, Coreg, Imdur Hold CHARO for now H/O systolic CHF: Last EF:40-45% Hold diuretics for now UTI: Urine culture:GPC Continue IV Ceftriaxone Follow up Cultures SLEEP APNEA: Continue CPAP HYPERTENSION: Lisinopril on hold Hypotensive currently Continue IV fluids Monitor H/O PARKINSONISM Not on any meds Appreciate Neurology input Needs follow up with Neurology as outpatient to initiate treatment GI Px: Protonix DVT Px: Heparin SQ Code Status: DNR/DNI Vital Signs: Date Time Temp Pulse Resp B/P Pulse Ox O2 Delivery O2 Flow Rate FiO2 11/05/16 07:34 36.5 81 23 88/47 99 Nasal Cannula 2.0 11/05/16 04:14 100 Nasal Cannula 3.0 11/05/16 04:03 74 15 114/58 92 11/05/16 04:00 36.7 73 18 95 11/05/16 03:03 70 12 100/50 96 11/05/16 03:00 72 16 99 11/05/16 02:34 73 21 130/56 97 11/05/16 02:03 73 21 115/51 91 11/05/16 02:00 69 21 96 11/05/16 01:33 70 15 127/63 98 11/05/16 01:03 70 17 123/48 92 11/05/16 01:00 68 18 91 11/05/16 00:33 70 18 102/51 92 11/05/16 00:04 69 14 96/52 98 11/05/16 00:00 100 Nasal Cannula 3.0 11/05/16 00:00 36.5 69 19 98 11/04/16 23:33 69 21 95/46 95 11/04/16 23:03 70 15 106/55 98 11/04/16 23:00 71 16 98 11/04/16 22:33 71 16 118/56 97 11/04/16 22:31 73 100 2.0 11/04/16 22:03 72 22 122/58 99 11/04/16 22:00 73 19 100 11/04/16 21:32 77 24 112/63 99 11/04/16 21:03 77 18 107/56 100 11/04/16 21:00 78 20 99 11/04/16 20:33 79 22 109/58 99 11/04/16 20:02 76 18 123/68 100 11/04/16 20:00 100 Nasal Cannula 3.0 11/04/16 20:00 36.4 76 21 100 11/04/16 19:33 79 21 116/61 99 11/04/16 19:03 77 21 121/58 99 11/04/16 19:00 78 22 99 11/04/16 17:02 36.6 77 20 110/53 99 Nasal Cannula 3.0 11/04/16 16:33 74 19 111/59 99 11/04/16 16:03 78 17 117/57 100 Nasal Cannula 3.0 11/04/16 16:02 99 Nasal Cannula 3.0 11/04/16 15:33 78 20 121/57 100 11/04/16 15:02 77 16 123/61 99 Nasal Cannula 3.0 11/04/16 14:33 36.6 79 22 122/64 99 11/04/16 14:03 78 18 103/65 97 3.0 11/04/16 14:03 36.7 80 24 98 3.0 11/04/16 13:33 77 16 93/78 99 Nasal Cannula 3.0 11/04/16 13:03 36.7 79 19 113/52 99 11/04/16 12:33 77 20 100/55 99 Nasal Cannula 3.0 11/04/16 12:03 100 Nasal Cannula 3.0 11/04/16 12:03 80 24 100/58 98 11/04/16 11:32 80 20 126/64 100 Nasal Cannula 4.0 11/04/16 11:17 74 20 110/58 11/04/16 11:03 36.7 79 19 95/60 98 11/04/16 10:33 76 18 124/76 99 11/04/16 10:03 36.7 76 20 126/64 99 Nasal Cannula 4.0 11/04/16 09:33 82 23 133/62 11/04/16 09:19 104/60 11/04/16 09:03 79 21 112/63 99 Nasal Cannula 4.0 Lab Results: Results Past 24 Hours Test 11/04/16 09:16 11/04/16 09:46 11/04/16 12:04 11/04/16 13:42 Range/Units Bedside Glucose 114 166 165 70-99 mg/dl Random Vancomycin Level 21.9 mcg/ml Test 11/04/16 16:27 11/04/16 17:03 11/04/16 18:17 11/04/16 21:33 Range/Units Bedside Glucose 84 84 126 115 70-99 mg/dl Test 11/05/16 00:24 11/05/16 03:51 11/05/16 05:35 Range/Units Bedside Glucose 112 116 70-99 mg/dl White Blood Count 7.53 4.8-10.8 K/uL Red Blood Count 3.20 4.7-6.1 M/uL Hemoglobin 9.7 14.0-18.0 g/dL Hematocrit 29.3 42-52 % Mean Corpuscular Volume 91.6 80-100 fL Mean Corpuscular Hemoglobin 30.3 25-34 pg Mean Corpuscular Hemoglobin Concent 33.1 32-36 g/dl Platelet Count 157 130-400 K/uL Mean Platelet Volume 9.2 7.4-10.4 fL Neutrophils (%) (Auto) 62.5 % Lymphocytes (%) (Auto) 16.1 % Monocytes (%) (Auto) 12.0 % Eosinophils (%) (Auto) 8.0 % Basophils (%) (Auto) 1.1 % Neutrophils # (Auto) 4.72 1.4-6.5 K/uL Lymphocytes # (Auto) 1.21 1.2-3.4 K/uL Monocytes # (Auto) 0.90 0.11-0.59 K/uL Eosinophils # (Auto) 0.60 0-0.5 K/uL Basophils # (Auto) 0.08 0-0.2 K/uL RDW Standard Deviation 50.0 36.4-46.3 fL RDW Coefficient of Variation 14.7 11.5-14.5 % Immature Granulocyte % (Auto) 0.3 % Immature Granulocyte # (Auto) 0.02 0.00-0.02 K/uL Sodium Level 131 136-145 mmol/L Potassium Level 4.3 3.5-5.1 mmol/L Chloride Level 94 98-107 mmol/L Carbon Dioxide Level 29 21-32 mmol/L Anion Gap 8.0 3-11 mmol/L Blood Urea Nitrogen 94 7-18 mg/dl Creatinine 3.70 0.60-1.40 mg/dl Est Creatinine Clear Calc Drug Dose 16.7 ml/min Estimated GFR () 16.1 Estimated GFR (Non- 13.9 BUN/Creatinine Ratio 25.5 10-20 Random Glucose 99 70-99 mg/dl Calcium Level 8.2 8.5-10.1 mg/dl
[2016-11-05] MEDS: D5W AND 1/2NSS 1,000 ML IV SCH (08:44)
--- NOTE | 2016-11-05 12:19 | PROGRESS NOTE ---
DATE: 11/05/2016 DATE: 11/05/2016. Ed has been moved out of the surgical ICU up to the medical floor and is now in room 251. His daughter is with him. She confirms the fact that he has had this tremor for years and it is primarily of an intentional type rather than resting and interferes with activities such as writing, feeding, etc. making it more typical I feel for essential tremor than Parkinson's disease, although he has been called Parkinson's in the past. There may be a little bit of rigidity and tendency for cogwheeling but his facial expression is easily animated, Myerson sign is marginal at best and the tremor frankly is worse with intension, disappears with rest and obeys most of the rules of essential tremor. Right now, I do not think we are going to offer any additional treatment. His medical illnesses need to get a little more stable. He needs to get home in his regular environment and if his current primary care physician feels that a neurologic consultation is warranted, we could easily see him at [facility] and assess his needs and degree of impairment. He can be seen by Michell Martin and myself at some point in the future, but I would like him to be very stable medically before we make a judgment call in the severity of his tremor as with any medical illness tremor of this type will worsen and appear much more impairing that it really is at baseline. I will check back with him tomorrow, but for now actually things look to some degree better than they even did yesterday. CECILY
--- NOTE | 2016-11-05 16:04 | CARDIOLOGY CONSULTATION ---
DATE OF CONSULTATION: 11/05/2016 SUBJECTIVE: This is an 85-year-old male patient with a history of ischemic cardiomyopathy and chronic stage IV kidney disease who presented with sepsis, possibly urosepsis. He was started on antibiotics and has improved now to the point where he can be moved to the regular nursing floor. He has no new complaints today. His son is with him in his room. He is alert and oriented. OBJECTIVE: VITAL SIGNS: Blood pressure is 115/60. Pulse is regular at 70 beats per minute. He is afebrile. HEENT: He is normocephalic. Pupils are equal and reactive to light. Extraocular muscles are intact bilaterally. NECK: The neck veins are flat. Carotids have good upstrokes bilaterally without bruits. Thyroid is nonpalpable. RESPIRATORY: Breath sounds equal bilaterally and clear to auscultation. CARDIOVASCULAR: Heart has a regular rhythm. Normal S1, S2. No S3, S4. No cardiac rubs or murmurs. GASTROINTESTINAL: Abdomen is soft, nontender without organomegaly. EXTREMITIES: Free of edema, digit clubbing, or cyanosis. NEUROLOGIC: Grossly intact. SKIN: Warm to touch. LYMPH NODES: Negative to palpation. LABORATORY DATA: WBC count is 7.5. Hemoglobin is 9.7. Potassium is 4.3. Creatinine is 3.7. IMPRESSION: 1. Acute on chronic renal failure. 2. Chronic systolic heart failure. 3. Chronic stable angina. 4. Moderate aortic stenosis. RECOMMENDATIONS: The patient seems to be clinically better. Whether this was due to the antibiotics or just volume management is uncertain. He was transferred to the regular medical floor this morning and is doing well. No new recommendations from cardiology.
[2016-11-05] MEDS: CEFTRIAXONE SOD INJ 2,000 MG in DEXTROSE 5% ADD-VANTAGE 50ML 50 ML IV SCH (17:48)
[2016-11-06] VITALS (8 sets, daily range): BP systolic 88–112; BP diastolic 41–69; PULSE 43–82; TEMP 36.5–36.7; O2SAT 95–99
[2016-11-06] MEDS: D5W AND 1/2NSS 1,000 ML IV SCH ×2 (03:22→22:59)
[2016-11-06] MEDS: HEPARIN SOD 5000 UNIT/0.5 ML CARP SQ SCH ×3 (06:39→21:07)
[2016-11-06 07:29] LABS: HEMATOCRIT 28.9 % (42-52); MEAN CORPUSCULAR HEMOGLOBIN 30.6 pg (25-34); MEAN CORPUSCULAR HGB CONC 33.2 g/dl (32-36); MEAN PLATELET VOLUME 10.1 fL (7.4-10.4); PLATELET COUNT 156 K/uL (130-400); RED BLOOD COUNT 3.14 M/uL (4.7-6.1); WHITE BLOOD COUNT 6.84 K/uL (4.8-10.8)
[2016-11-06 08:07] LABS: BUN/CREATININE RATIO 27.6 (10-20); CREATININE 3.1 mg/dl (0.60-1.40); MAGNESIUM 2.6 mg/dl (1.8-2.4); POTASSIUM 3.9 mmol/L (3.5-5.1)
[2016-11-06 08:41] LABS: CALCIUM 8.1 mg/dl (8.5-10.1)
[2016-11-06] MEDS: ACETAMINOPHEN 325 MG TAB PO PRN (09:10)
[2016-11-06] MEDS: CLOPIDOGREL BISULFATE 75 MG TAB PO SCH (09:11)
[2016-11-06] MEDS: ASPIRIN 81 MG ECTAB PO SCH (09:11)
[2016-11-06] MEDS: CARVEDILOL 3.125 MG TAB PO SCH ×2 (09:12→21:00)
[2016-11-06] MEDS: SERTRALINE HCL 50 MG TAB PO SCH (09:12)
[2016-11-06] MEDS: SENNA 8.6 MG TAB PO SCH (09:12)
[2016-11-06] MEDS: ISOSORBIDE MONONITRATE 60 MG TABCR PO SCH (09:12)
[2016-11-06] MEDS: DOCUSATE SODIUM 100 MG CAP PO SCH ×2 (09:12→21:07)
[2016-11-06] MEDS: FINASTERIDE 5 MG TAB PO SCH (09:27)
--- NOTE | 2016-11-06 11:22 | Nephrology Progress Note ---
Nephrology Progress Note Date of Service: November 06, 2016. Subjective resting/ exhausted; not dyspneic, no edema. no pain today. son and daughter at bedside Objective Date Time Temp Pulse Resp B/P Pulse Ox O2 Delivery O2 Flow Rate FiO2 11/06/16 08:00 Nasal Cannula 2.0 11/06/16 07:15 36.5 80 22 112/65 98 CPAP 11/06/16 00:00 BiPAP 2.0 11/06/16 00:00 36.7 82 20 108/60 96 BiPAP 11/05/16 20:00 Nasal Cannula 2.0 11/05/16 16:00 Nasal Cannula 2.0 11/05/16 14:35 36.4 81 24 92/51 98 Nasal Cannula 3.0 11/05/16 11:40 36.4 82 22 94/42 99 Nasal Cannula 2.0 92/51 Physical Exam: General - NAD, on 02nc, oriented x 3, lying flat w/o distress Eyes - PERRL, EOMI, nonicteric ENT - dry MM Neck - Supple Lungs - diminished bilaterally but still clear Heart - RRR, 3/6 SM Abdomen - BS+, soft, nontender, distended, lujan Extremities - trace L pedal edema Neuro - luu, fluent speech; intermittent resting tremor BLUE Current Inpatient Medications Medications (Trade) Dose Ordered Sig/Vijay Route Start Time Stop Time Status Last Admin Dose Admin Heparin Sodium (Porcine) (Heparin Sq 5000 Unit/0.5ml) 5,000 unit Q8 SQ 11/03/16 22:00 12/03/16 21:59 11/06/16 06:39 5,000 UNIT Acetaminophen (Tylenol Tab) 650 mg Q4H PRN PO 11/03/16 19:00 12/03/16 18:59 11/06/16 09:10 650 MG Ondansetron HCl (Zofran Inj) 4 mg Q6H PRN IV 11/03/16 19:00 12/03/16 18:59 Aspirin (Ecotrin Tab) 81 mg QAM PO 11/04/16 09:00 12/04/16 08:59 11/06/16 09:11 81 MG Carvedilol (Coreg Tab) 3.125 mg BID PO 11/03/16 21:00 12/03/16 20:59 11/06/16 09:12 3.125 MG Clopidogrel Bisulfate (plAVix TAB) 75 mg QAM PO 11/04/16 09:00 12/04/16 08:59 11/06/16 09:11 75 MG Docusate Sodium (coLACE CAP) 100 mg BID PO 11/03/16 21:00 12/03/16 20:59 11/06/16 09:12 100 MG Finasteride (Proscar Tab) 5 mg QAM PO 11/04/16 09:00 12/04/16 08:59 11/06/16 09:27 5 MG Albuterol/ Ipratropium (Duoneb) 3 ml Q6 PRN INH 11/03/16 19:00 12/03/16 18:59 Isosorbide Mononitrate (Imdur Ext Rel Tab) 60 mg QAM PO 11/04/16 09:00 12/04/16 08:59 11/06/16 09:12 60 MG Senna (Senokot Tab) 8.6 mg QAM PO 11/04/16 09:00 12/04/16 08:59 11/06/16 09:12 8.6 MG Sertraline HCl (Zoloft Tab) 50 mg QAM PO 11/04/16 09:00 12/04/16 08:59 11/06/16 09:12 50 MG Triamcinolone Acetonide (Kenalog 0.1% Cream) 1 appln BID PRN EXT 11/03/16 19:00 12/03/16 18:59 Polyethylene (Miralax Powder Packet) 17 gm DAILY PRN PO 11/03/16 19:30 12/03/16 19:29 Glucose (Glucose 40% Gel) 15-30 GRAMS 15 GRAMS... UD PRN PO 11/03/16 21:15 12/03/16 21:14 Glucose (Glucose Chew Tab) 4-8 Tablets 4 Tabl... UD PRN PO 11/03/16 21:15 12/03/16 21:14 Dextrose (Dextrose 50% 50ML Syringe) 25-50ML OF 50% DW IV FOR... UD PRN IV 11/03/16 21:15 12/03/16 21:14 11/04/16 04:25 25 ML Glucagon 1 mg 1 mg UD PRN SQ 11/03/16 21:15 12/03/16 21:14 Ceftriaxone Sodium 2000 mg/ Dextrose 70 ml @ 100 mls/hr Q24H IV 11/04/16 18:00 11/12/16 18:41 11/05/16 17:48 100 MLS/HR Dextrose/Sodium Chloride (D5W And 1/2nss) 1,000 ml @ 50 mls/hr Q20H IV 11/05/16 08:15 12/05/16 08:14 11/06/16 03:22 50 MLS/HR Last 24 Hours Test 11/05/16 11:43 11/05/16 16:33 11/05/16 20:11 11/06/16 00:22 Bedside Glucose 184 mg/dl 143 mg/dl 213 mg/dl 173 mg/dl Test 11/06/16 05:41 11/06/16 06:41 11/06/16 07:33 Bedside Glucose 133 mg/dl 133 mg/dl White Blood Count 6.84 K/uL Red Blood Count 3.14 M/uL Hemoglobin 9.6 g/dL Hematocrit 28.9 % Mean Corpuscular Volume 92.0 fL Mean Corpuscular Hemoglobin 30.6 pg Mean Corpuscular Hemoglobin Concent 33.2 g/dl RDW Standard Deviation 50.7 fL RDW Coefficient of Variation 14.8 % Platelet Count 156 K/uL Mean Platelet Volume 10.1 fL Sodium Level 132 mmol/L Potassium Level 3.9 mmol/L Chloride Level 93 mmol/L Carbon Dioxide Level 29 mmol/L Anion Gap 10.0 mmol/L Blood Urea Nitrogen 86 mg/dl Creatinine 3.10 mg/dl Est Creatinine Clear Calc Drug Dose 19.9 ml/min Estimated GFR () 19.9 Estimated GFR (Non- 17.2 BUN/Creatinine Ratio 27.6 Random Glucose 117 mg/dl Calcium Level 8.1 mg/dl Magnesium Level 2.6 mg/dl Assessment & Plan 85 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 Inflamed but not necessarily infected urine and hx of urineary regention; blood/urine cxs pending > urine w/ > enterococcus +. Renal u/s unremarkable. On ceftriaxone currently ; had vanco as well. 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 sodium improving; chemistries acceptable at this time. 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 postobstructive polyuria resolved -d/w family that he may have recurrent retention when lujan removed>may need to leave hospital w/ lujan potentially for outpt >note that UA had no bacteria >> this +ur cx may reflect contamination; empiric abtx appropriate in hospital however hypoglycemia -suspect this issue at admission d/t worsened renal failure > per hospitalist if glipizide should be reconsidered as med for dm on him Appreciate consultation; will follow with you.
--- NOTE | 2016-11-06 12:45 | PROGRESS NOTE ---
DATE: 11/06/2016 SUBJECTIVE: Axel looks about the same. He is beginning to look more and more like a pure essential tremor and less like a Parkinson patient. The tremor are intentional and involves his speech and his hands. There may be some rigidity, but this is more gegenhalten than cogwheeling. Again, I am reluctant to offer any treatment until we see how he functions on an outpatient basis. I am not sure what the discharge planning might be but we would be happy to take a look at him several weeks after discharge, make an assessment, review his other medications and decide then whether initiating treatment with primidone, beta yan, conceivably Neurontin or even Topamax might be a reasonable thing to try. All this would have to take into account, his underlying medical conditions and overall status. Right now, he is very weak, he does not think he can walk and I suspect he is going to need some rehabilitation assessment, where this will take place is not clear. We will continue to look in on him daily, but at this point again, I am really reluctant in initiating any treatment until he is in a stable outpatient situation, and we can make a cost benefit analysis, based on his status there. TEVIND
--- NOTE | 2016-11-06 12:56 | Progress Note ---
Internal Med Progress Note Date of Service: November 06, 2016. Provider Documentation: SUBJECTIVE: Patient is seen and examined at bedside. States feeling very weak and tired today. Denies chest pain, Abd pain, SOB, urinary symptoms. Offers no complaints. OBJECTIVE: Vital Signs-as noted below Physical Exam: Vitals signs as noted above General Appearance:Moderately built and nourished, no apparent distress, + Tremor Head: normocephalic, Atraumatic Eyes: normal inspection, EOMI, PERRL Neck: supple, Trachea midline Respiratory/Chest: Normal breath sounds, CTA Cardiovascular: S1, S2, + systolic murmur Abdomen/GI:Soft, Non tender, Bowel sounds present Extremities/Musculoskelatal:normal inspection, Trace edema Neurologic/Psych:AAOX3, grossly no focal neurological deficits Skin: normal color, warm Lab data as noted below. 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 Likely secondary to Diuretics, CHARO inhibitors Baseline Cr:Low 2s Continue IV fluids per Nephrology Avoid Nephrotoxic agents Renal USD:Unremarkable Hold diuretics, lisinopril for now Appreciate Nephrology input Monitor renal function Cr levels improvin.1 today HYPERKALEMIA: Resolved Secondary to ARF and chronic potassium supplements Received calcium gluconate, dextrose and insulin, bicarbonate No EKG changes Monitor HYPOGLYCEMIA: H/O DM II, Patient on glipizide Hold all diabetic meds for now Continue IV fluids Monitor glucose level Hypoglycemia protocol, ISS Improving HYPOVOLEMIC HYPONATREMIA: Monitor sodium levels Continue fluid restriction: 1.8 litres per day Sodium levels:132 today CAD S/P CABG and stent placement: Continue ASA, Plavix, Coreg, Imdur Hold CHARO for now H/O systolic CHF: Last EF:40-45% Hold diuretics for now UTI: Urine culture:Enterococcus fecalis ? Contamination Continue IV Ceftriaxone empirically for now Blood Cultures: Negative Denies any Urinary Symptoms SLEEP APNEA: Continue CPAP HYPERTENSION: Lisinopril on hold Continue IV fluids Monitor H/O PARKINSONISM ESSENTIAL TREMOR Not on any meds Appreciate Neurology input Needs follow up with Neurology as outpatient GI Px: Protonix DVT Px: Heparin SQ Code Status: DNR/DNI Vital Signs: Date Time Temp Pulse Resp B/P Pulse Ox O2 Delivery O2 Flow Rate FiO2 11/06/16 10:30 108/69 11/06/16 08:00 Nasal Cannula 2.0 11/06/16 07:15 36.5 80 22 112/65 98 CPAP 11/06/16 00:00 BiPAP 2.0 11/06/16 00:00 36.7 82 20 108/60 96 BiPAP 11/05/16 20:00 Nasal Cannula 2.0 11/05/16 16:00 Nasal Cannula 2.0 11/05/16 14:35 36.4 81 24 92/51 98 Nasal Cannula 3.0 Lab Results: Results Past 24 Hours Test 11/05/16 16:33 11/05/16 20:11 11/06/16 00:22 11/06/16 05:41 Range/Units Bedside Glucose 143 213 173 133 70-99 mg/dl Test 11/06/16 06:41 11/06/16 07:33 11/06/16 11:17 Range/Units White Blood Count 6.84 4.8-10.8 K/uL Red Blood Count 3.14 4.7-6.1 M/uL Hemoglobin 9.6 14.0-18.0 g/dL Hematocrit 28.9 42-52 % Mean Corpuscular Volume 92.0 80-100 fL Mean Corpuscular Hemoglobin 30.6 25-34 pg Mean Corpuscular Hemoglobin Concent 33.2 32-36 g/dl RDW Standard Deviation 50.7 36.4-46.3 fL RDW Coefficient of Variation 14.8 11.5-14.5 % Platelet Count 156 130-400 K/uL Mean Platelet Volume 10.1 7.4-10.4 fL Sodium Level 132 136-145 mmol/L Potassium Level 3.9 3.5-5.1 mmol/L Chloride Level 93 98-107 mmol/L Carbon Dioxide Level 29 21-32 mmol/L Anion Gap 10.0 3-11 mmol/L Blood Urea Nitrogen 86 7-18 mg/dl Creatinine 3.10 0.60-1.40 mg/dl Est Creatinine Clear Calc Drug Dose 19.9 ml/min Estimated GFR () 19.9 Estimated GFR (Non- 17.2 BUN/Creatinine Ratio 27.6 10-20 Random Glucose 117 70-99 mg/dl Calcium Level 8.1 8.5-10.1 mg/dl Magnesium Level 2.6 1.8-2.4 mg/dl Bedside Glucose 133 164 70-99 mg/dl
[2016-11-06] MEDS: CEFTRIAXONE SOD INJ 2,000 MG in DEXTROSE 5% ADD-VANTAGE 50ML 50 ML IV SCH (17:33)
[2016-11-07] VITALS (8 sets, daily range): BP systolic 92–102; BP diastolic 53–64; PULSE 84–95; TEMP 36.4–36.7; O2SAT 95–100
[2016-11-07] MEDS: HEPARIN SOD 5000 UNIT/0.5 ML CARP SQ SCH ×3 (05:17→21:03)
--- NOTE | 2016-11-07 07:21 | Nephrology Progress Note ---
Nephrology Progress Note Date of Service: November 07, 2016. Subjective 85 yo male with ckd stage 4 with baseline creatinine in the 2s who presented with enterococcus uti, neil and hyperkalemia. pt is very weak and has tremors. denies any significant sob. appetite is good. Objective Date Time Temp Pulse Resp B/P Pulse Ox O2 Delivery O2 Flow Rate FiO2 11/06/16 23:59 95 Nasal Cannula 2.0 BiPAP 11/06/16 23:49 80 11/06/16 23:09 36.6 43 20 88/41 95 2.0 11/06/16 21:09 80 98/59 11/06/16 19:50 Nasal Cannula 2.0 BiPAP 11/06/16 15:05 36.7 82 22 92/47 99 Nasal Cannula 2.0 11/06/16 10:30 108/69 11/06/16 08:00 Nasal Cannula 2.0 Physical Exam: General-AAOX3, hard of hearing Eyes-no scleral icterus ENT-mmm Neck-supple Lungs-decreased at bases Heart-2/6 systolic murmur Abdomen-bs+ s/nt/nd Extremities-+1 edema Neuro-tremors and generalized weakness Current Inpatient Medications Medications (Trade) Dose Ordered Sig/Vijay Route Start Time Stop Time Status Last Admin Dose Admin Heparin Sodium (Porcine) (Heparin Sq 5000 Unit/0.5ml) 5,000 unit Q8 SQ 11/03/16 22:00 12/03/16 21:59 11/07/16 05:17 5,000 UNIT Acetaminophen (Tylenol Tab) 650 mg Q4H PRN PO 11/03/16 19:00 12/03/16 18:59 11/06/16 09:10 650 MG Ondansetron HCl (Zofran Inj) 4 mg Q6H PRN IV 11/03/16 19:00 12/03/16 18:59 Aspirin (Ecotrin Tab) 81 mg QAM PO 11/04/16 09:00 12/04/16 08:59 11/06/16 09:11 81 MG Carvedilol (Coreg Tab) 3.125 mg BID PO 11/03/16 21:00 12/03/16 20:59 11/06/16 09:12 3.125 MG Clopidogrel Bisulfate (plAVix TAB) 75 mg QAM PO 11/04/16 09:00 12/04/16 08:59 11/06/16 09:11 75 MG Docusate Sodium (coLACE CAP) 100 mg BID PO 11/03/16 21:00 12/03/16 20:59 11/06/16 21:07 100 MG Finasteride (Proscar Tab) 5 mg QAM PO 11/04/16 09:00 12/04/16 08:59 11/06/16 09:27 5 MG Albuterol/ Ipratropium (Duoneb) 3 ml Q6 PRN INH 11/03/16 19:00 12/03/16 18:59 Isosorbide Mononitrate (Imdur Ext Rel Tab) 60 mg QAM PO 11/04/16 09:00 12/04/16 08:59 11/06/16 09:12 60 MG Senna (Senokot Tab) 8.6 mg QAM PO 11/04/16 09:00 12/04/16 08:59 11/06/16 09:12 8.6 MG Sertraline HCl (Zoloft Tab) 50 mg QAM PO 11/04/16 09:00 12/04/16 08:59 11/06/16 09:12 50 MG Triamcinolone Acetonide (Kenalog 0.1% Cream) 1 appln BID PRN EXT 11/03/16 19:00 12/03/16 18:59 Polyethylene (Miralax Powder Packet) 17 gm DAILY PRN PO 11/03/16 19:30 12/03/16 19:29 Glucose (Glucose 40% Gel) 15-30 GRAMS 15 GRAMS... UD PRN PO 11/03/16 21:15 12/03/16 21:14 Glucose (Glucose Chew Tab) 4-8 Tablets 4 Tabl... UD PRN PO 11/03/16 21:15 12/03/16 21:14 Dextrose (Dextrose 50% 50ML Syringe) 25-50ML OF 50% DW IV FOR... UD PRN IV 11/03/16 21:15 12/03/16 21:14 11/04/16 04:25 25 ML Glucagon 1 mg 1 mg UD PRN SQ 11/03/16 21:15 12/03/16 21:14 Ceftriaxone Sodium 2000 mg/ Dextrose 70 ml @ 100 mls/hr Q24H IV 11/04/16 18:00 11/12/16 18:41 11/06/16 17:33 100 MLS/HR Dextrose/Sodium Chloride (D5W And 1/2nss) 1,000 ml @ 50 mls/hr Q20H IV 11/05/16 08:15 12/05/16 08:14 11/06/16 22:59 50 MLS/HR Last 24 Hours Test 11/06/16 07:33 11/06/16 11:17 11/06/16 16:17 11/06/16 20:24 Bedside Glucose 133 mg/dl 164 mg/dl 181 mg/dl 168 mg/dl Test 11/07/16 04:44 Assessment & Plan [id number] possibly from combination of atn with uti and concominant volume depletion. creatinine continues to trend down. today's labs are pending. concerned about eventual fluid overload and would like to stop the iv fluids if blood sugars are ok. would leave lujan in for now since pt is very weak but plan to eventually do a trial without the lujan later in week. Anemia-hg levels are trending down and may be dilutional. would like to check iron sat and ferritin and if ok, will consider giving procrit while in hospital.
[2016-11-07] MEDS: CLOPIDOGREL BISULFATE 75 MG TAB PO SCH (07:29)
[2016-11-07] MEDS: DOCUSATE SODIUM 100 MG CAP PO SCH ×2 (07:29→21:00)
[2016-11-07] MEDS: ASPIRIN 81 MG ECTAB PO SCH (07:29)
[2016-11-07] MEDS: SENNA 8.6 MG TAB PO SCH (07:30)
[2016-11-07] MEDS: FINASTERIDE 5 MG TAB PO SCH (07:30)
[2016-11-07] MEDS: SERTRALINE HCL 50 MG TAB PO SCH (07:31)
[2016-11-07] MEDS: CARVEDILOL 3.125 MG TAB PO SCH ×2 (07:32→21:00)
[2016-11-07] MEDS: ISOSORBIDE MONONITRATE 60 MG TABCR PO SCH (07:32)
[2016-11-07 08:30] LABS: BUN/CREATININE RATIO 28.8 (10-20); CREATININE 2.6 mg/dl (0.60-1.40); POTASSIUM 3.6 mmol/L (3.5-5.1)
[2016-11-07 09:21] LABS: CALCIUM 8.7 mg/dl (8.5-10.1)
[2016-11-07] MEDS ORDERED: RANITIDINE HCL 150 MG TAB PO ONE (11:45)
--- NOTE | 2016-11-07 11:55 | Cardiology Follow-Up ---
Subjective Subjective Date of Service: November 07, 2016. Pt evaluation today including: conversation w/ patient, physical exam, chart review, lab review, review of studies, review of inpatient medication list Additional Details: Pt seen and examined, states that he is feeling ok. Some indigestion after breakfast this morning. Otherwise, denies cp, sob, palpitations, lightheadedness or dizziness. Tele reviewed: sinus rhythm with frequent PAC's Problem List Medical Problems: (1) Acute renal failure Status: Acute (2) Altered mental status Status: Acute (3) Generalized weakness Status: Acute (4) Hyperkalemia Status: Acute (5) Hypoglycemia Status: Acute (6) Swelling of left lower extremity Status: Acute (7) Urinary tract infection Status: Acute Review of Systems Constitutional: + weakness ENT: + hearing loss (normal for patient) Respiratory: + dyspnea on exertion, No cough, No dyspnea at rest Cardiac: + edema, No chest pain Abdomen: + problem reported (no BM two days), No nausea, No pain, No vomiting Musculoskeletal: + joint pain, + muscle pain Male : No problem reported Neurologic: + weakness Psychiatric: No anxiety, No depression symptoms Objective Vital Signs Last Vital Signs Documentation Date Time Temp Pulse Resp B/P Pulse Ox O2 Delivery O2 Flow Rate FiO2 11/07/16 11:30 Nasal Cannula 2.0 11/07/16 10:44 36.4 95 20 97 11/07/16 08:51 93/64 Physical Exam: General Appearance: no apparent distress, + obese Eyes: bilateral eyes EOMI, bilateral eyes PERRL, bilateral eyes normal inspection ENT: normal ENT inspection, hearing grossly normal, pharynx normal, + pertinent finding (hard of hearing) Neck: supple, no adenopathy, no JVD Respiratory/Chest: lungs clear, no respiratory distress, no accessory muscle use, + decreased breath sounds (bilateral bases) Cardiovascular: + irregularly irregular Abdomen: normal bowel sounds, non tender, soft, no organomegaly, no pulsatile mass Extremities: normal inspection, no pedal edema, no calf tenderness Neurologic/Psychiatric: intranet support II-XII nml as tested, no motor/sensory deficits, alert, normal mood/affect, oriented x 3 Skin: normal color, warm/dry, no rash Lymphatic: no adenopathy Assessment and Plan 1. frequent PAC's EKG this AM questionable for afib had patient transferred to tele for further eval now more clear, it is frequent PAC's likely secondary to electrolyte abnormalities and renal impairment no medications 2. indigestion will order prn tums and bid ranintidine
[2016-11-07] MEDS ORDERED: POTASSIUM CHLORIDE 10 MEQ TABCR PO ONE (12:45)
--- NOTE | 2016-11-07 12:50 | Progress Note ---
Internal Med Progress Note Date of Service: November 07, 2016. Provider Documentation: SUBJECTIVE: Patient is seen and examined at bedside. States having indigestion this morning which relived after belching. Also repots having constipation. Denies nausea, abd pain, chest pain, SOB, palpitations or dizziness. Offers no complaints. OBJECTIVE: Vital Signs-as noted below Physical Exam: Vitals signs as noted above General Appearance:Moderately built and nourished, no apparent distress, + Tremor Head: normocephalic, Atraumatic Eyes: normal inspection, EOMI, PERRL Neck: supple, Trachea midline Respiratory/Chest: Normal breath sounds, CTA Cardiovascular: S1, S2, + systolic murmur Abdomen/GI:Soft, Non tender, Bowel sounds present Extremities/Musculoskelatal:normal inspection, Trace edema Neurologic/Psych:AAOX3, grossly no focal neurological deficits Skin: normal color, warm Lab data as noted below. 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 Afib Monitor electrolytes Monitor in Tele HYPERKALEMIA: Resolved Secondary to ARF and chronic potassium supplements Received calcium gluconate, dextrose and insulin, bicarbonate Monitor HYPOGLYCEMIA: H/O DM II, Patient on glipizide Hold all diabetic meds for now Monitor glucose level Hypoglycemia protocol, ISS Resolved HYPOVOLEMIC HYPONATREMIA: Monitor sodium levels Continue fluid restriction: 1.8 litres per day Sodium levels:130 today CAD S/P CABG and stent placement: Continue ASA, Plavix, Coreg, Imdur Hold CHARO for now H/O systolic CHF: Last EF:40-45% Hold diuretics for now UTI: Urine culture:Enterococcus fecalis ? Contamination Continue IV Ceftriaxone # 4 Blood Cultures: Negative Denies any Urinary Symptoms SLEEP APNEA: Continue CPAP HYPERTENSION: Lisinopril on hold Continue IV fluids Monitor H/O PARKINSONISM ESSENTIAL TREMOR Not on any meds Appreciate Neurology input Needs follow up with Neurology as outpatient GI Px: Protonix DVT Px: Heparin SQ Code Status: DNR/DNI Vital Signs: Date Time Temp Pulse Resp B/P Pulse Ox O2 Delivery O2 Flow Rate FiO2 11/07/16 12:06 36.7 87 18 97/58 96 Nasal Cannula 2.0 11/07/16 11:30 Nasal Cannula 2.0 11/07/16 10:44 36.4 95 20 97 2.0 11/07/16 08:51 95 93/64 11/07/16 08:00 Nasal Cannula 2.0 11/07/16 07:48 36.4 87 20 92/53 97 2.0 11/06/16 23:59 95 Nasal Cannula 2.0 BiPAP 11/06/16 23:49 80 11/06/16 23:09 36.6 43 20 88/41 95 2.0 11/06/16 21:09 80 98/59 11/06/16 19:50 Nasal Cannula 2.0 BiPAP 11/06/16 15:05 36.7 82 22 92/47 99 Nasal Cannula 2.0 Lab Results: Results Past 24 Hours Test 11/06/16 16:17 11/06/16 20:24 11/07/16 07:31 11/07/16 07:39 Range/Units Bedside Glucose 181 168 124 70-99 mg/dl Sodium Level 130 136-145 mmol/L Potassium Level 3.6 3.5-5.1 mmol/L Chloride Level 94 98-107 mmol/L Carbon Dioxide Level 27 21-32 mmol/L Anion Gap 9.0 3-11 mmol/L Blood Urea Nitrogen 75 7-18 mg/dl Creatinine 2.60 0.60-1.40 mg/dl Est Creatinine Clear Calc Drug Dose 23.7 ml/min Estimated GFR () 24.6 Estimated GFR (Non- 21.2 BUN/Creatinine Ratio 28.8 10-20 Random Glucose 113 70-99 mg/dl Calcium Level 8.7 8.5-10.1 mg/dl Test 11/07/16 09:20 11/07/16 12:40 Range/Units Troponin I 0.105 0-0.045 ng/ml
--- NOTE | 2016-11-07 15:09 | Progress Note ---
Post ICU Progress Note Date & Time November 07, 2016 at 14:58 Vital Signs Vital Signs Past 12 Hours Date Time Temp Pulse Resp B/P Pulse Ox O2 Delivery O2 Flow Rate FiO2 11/07/16 12:06 36.7 87 18 97/58 96 Nasal Cannula 2.0 11/07/16 11:30 Nasal Cannula 2.0 11/07/16 10:44 36.4 95 20 97 2.0 11/07/16 08:51 95 93/64 11/07/16 08:00 Nasal Cannula 2.0 11/07/16 07:48 36.4 87 20 92/53 97 2.0 Notes Mental Status: alert / awake, participated in evaluation Nausea / Vomiting: adequately controlled Pain: adequately controlled Airway Patency, RR, SpO2: stable & adequate BP & HR: see Notes (Asymtomatic Atrial fibrillation this morning) This is an 85 yo male that presented with hypotension and electrolyte imbalance with acute on chronic kidney disease. He was hydrated and labs were corrected in the ICU. He was then transferred to the floor. This morning, he was transferred to PCU for telemetry as it was thought that he was in atrial fibrillation. He was seen by cardiology and EKGs were reviewed. It was determined that the patient was not in a. fib but had NSR with frequent PACs. The patient was seen at bedside in room 275 and had no complaints. He denied any chest pain or tightness. he has no acute complaints. While in the ICU, he had no procedures other than IV infusion of meds and fluids. Reviewed progress notes, labs, and inpatient medication list Continue current management Critical care medicine will sign off at this time. Please refer to Dr. Whitney' s addendum for further recommendations. Please feel free to reconsult as needed. Thank you for including us in the care of this patient Consults & Procedures Consultants: Nephrology - Dr. Nice Cardiology - Dr. Schaffer
--- NOTE | 2016-11-07 15:56 | Neurology Progress Notes ---
Neurology Progress Note Date of Service November 07, 2016. Lourdes Reyna is a 85-year-old obese male with PMH CAD, history of systolic heart failure secondary to CAD, asthma exacerbation, CKD IV, DM2, history of LA, DL, obstructive sleep apnea. 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 He got up in the morning and was able to walk to the table but after that he was unable to get up. He had generalized weakness and the caregiver called the PCP and he advised to have him taken to the hospital for evaluation. He was weak and lethargic upon arrival to the ED. He was afebrile with a blood pressure of 103/51 and saturation 97% on room air and BUN and creatinine of 118/5.0, and K- 6.7. He also had a random glucose of 47. He received intravenous glucose, dextrose, bicarbonate and also calcium gluconate and also glucose and was advised for admission. He was also started on antibiotics for possible UTI. Today he states he is feeling good. He is lying comfortably in bed with no complaints. He states he was diagnosed with Parkinson's by his general manager land department and was told there was nothing to be done about it and it would get worse. He was never on any medication for Parkinson's. he denies swallowing difficulty, has difficulty with rolling in bed, and starting with walking, no recent falls, no bowel or bladder issues. + tremor walks with walker at baseline Today he states he is feeling better. No complains but states he is still weak in his legs. Objective Date Time Temp Pulse Resp B/P Pulse Ox O2 Delivery O2 Flow Rate FiO2 11/07/16 15:42 36.7 89 20 102/61 95 2.0 11/07/16 12:06 36.7 87 18 97/58 96 Nasal Cannula 2.0 11/07/16 11:30 Nasal Cannula 2.0 11/07/16 10:44 36.4 95 20 97 2.0 11/07/16 08:51 95 93/64 11/07/16 08:00 Nasal Cannula 2.0 11/07/16 07:48 36.4 87 20 92/53 97 2.0 11/06/16 23:59 95 Nasal Cannula 2.0 BiPAP 11/06/16 23:49 80 11/06/16 23:09 36.6 43 20 88/41 95 2.0 11/06/16 21:09 80 98/59 11/06/16 19:50 Nasal Cannula 2.0 BiPAP Last 24 Hours Test 11/06/16 16:17 11/06/16 20:24 11/07/16 07:31 11/07/16 07:39 Bedside Glucose 181 mg/dl 168 mg/dl 124 mg/dl Sodium Level 130 mmol/L Potassium Level 3.6 mmol/L Chloride Level 94 mmol/L Carbon Dioxide Level 27 mmol/L Anion Gap 9.0 mmol/L Blood Urea Nitrogen 75 mg/dl Creatinine 2.60 mg/dl Est Creatinine Clear Calc Drug Dose 23.7 ml/min Estimated GFR () 24.6 Estimated GFR (Non- 21.2 BUN/Creatinine Ratio 28.8 Random Glucose 113 mg/dl Calcium Level 8.7 mg/dl Magnesium Level 2.4 mg/dl Test 11/07/16 09:20 11/07/16 14:57 Troponin I 0.105 ng/ml 1.480 ng/ml Imaging: no new imaging Exam: Physical Exam: Constitutional: appearance nourished, healthy and obese Ears, Nose, Mouth and Throat: mucous membranes moist, no injection and skin normal, eyes normal Cardiovascular: normal S-1 and S-2 and regular rate and rhythm Respiratory: course breath sounds through out Musculoskeletal: LE non pitting edema Skin: no stigmata of neurocutaneous disease noted and normal and intact Eyes: extraocular muscles intact (EOMI) and pupils equal, round and reactive to light (PERRL) NEUROLOGIC EXAMINATION: Mental status: Alert and interactive Oriented 2017, [facility], Travon Granados is president Oriented to person Speech fluent with no evidence of aphasia Cranial Nerves smile eye brow raise symmetric, tongue midline Sensory: light touch Coordination: finger to nose no bi pass reaching tremor, no resting tremor Gait/Stance: Posture lying in bed Strength: biceps triceps hand transfer and pumphouse operator chief 5/5 bilaterally unable to lift legs against gravity , wiggles toes Current Inpatient Medications Medications (Trade) Dose Ordered Sig/Vijay Route Start Time Stop Time Status Last Admin Dose Admin Heparin Sodium (Porcine) (Heparin Sq 5000 Unit/0.5ml) 5,000 unit Q8 SQ 11/03/16 22:00 12/03/16 21:59 11/07/16 13:53 5,000 UNIT Acetaminophen (Tylenol Tab) 650 mg Q4H PRN PO 11/03/16 19:00 12/03/16 18:59 11/06/16 09:10 650 MG Ondansetron HCl (Zofran Inj) 4 mg Q6H PRN IV 11/03/16 19:00 12/03/16 18:59 11/07/16 10:36 4 MG Aspirin (Ecotrin Tab) 81 mg QAM PO 11/04/16 09:00 12/04/16 08:59 11/07/16 07:29 81 MG Carvedilol (Coreg Tab) 3.125 mg BID PO 11/03/16 21:00 12/03/16 20:59 11/06/16 09:12 3.125 MG Clopidogrel Bisulfate (plAVix TAB) 75 mg QAM PO 11/04/16 09:00 12/04/16 08:59 11/07/16 07:29 75 MG Docusate Sodium (coLACE CAP) 100 mg BID PO 11/03/16 21:00 12/03/16 20:59 11/07/16 07:29 100 MG Finasteride (Proscar Tab) 5 mg QAM PO 11/04/16 09:00 12/04/16 08:59 11/07/16 07:30 5 MG Albuterol/ Ipratropium (Duoneb) 3 ml Q6 PRN INH 11/03/16 19:00 12/03/16 18:59 Isosorbide Mononitrate (Imdur Ext Rel Tab) 60 mg QAM PO 11/04/16 09:00 12/04/16 08:59 11/06/16 09:12 60 MG Senna (Senokot Tab) 8.6 mg QAM PO 11/04/16 09:00 12/04/16 08:59 11/07/16 07:30 8.6 MG Sertraline HCl (Zoloft Tab) 50 mg QAM PO 11/04/16 09:00 12/04/16 08:59 11/07/16 07:31 50 MG Triamcinolone Acetonide (Kenalog 0.1% Cream) 1 appln BID PRN EXT 11/03/16 19:00 12/03/16 18:59 Polyethylene (Miralax Powder Packet) 17 gm DAILY PRN PO 11/03/16 19:30 12/03/16 19:29 Glucose (Glucose 40% Gel) 15-30 GRAMS 15 GRAMS... UD PRN PO 11/03/16 21:15 12/03/16 21:14 Glucose (Glucose Chew Tab) 4-8 Tablets 4 Tabl... UD PRN PO 11/03/16 21:15 12/03/16 21:14 Dextrose (Dextrose 50% 50ML Syringe) 25-50ML OF 50% DW IV FOR... UD PRN IV 11/03/16 21:15 12/03/16 21:14 11/04/16 04:25 25 ML Glucagon 1 mg 1 mg UD PRN SQ 11/03/16 21:15 12/03/16 21:14 Ceftriaxone Sodium/Dextrose (Rocephin Inj/ Dextrose Add-[place] 50ML) 70 ml @ 100 mls/hr Q24H IV 11/04/16 18:00 11/12/16 18:41 11/06/16 17:33 100 MLS/HR Ranitidine HCl (zANTac TAB) 150 mg DAILY PO 11/08/16 09:00 12/08/16 08:59 Calcium Carbonate (Tums Chew Tab) 500 mg Q2HWA PRN PO 11/07/16 11:45 12/07/16 11:44 Impression 85 year old with extensive PMH with decreased tremor with lyte and metabolic correction Plan 1. known tremor now seems more of an essential tremor since lytes and metabolic issues are resolving 2. would not start medications in the setting if at all 3. would be glad to see as outpatient in neurology 4. optimize metabolic issues and then reevaluate as outpatient 5. PT/OT for discharge needs 6. palliative medicine to follow with either hospice at home or transition to SNF for rehab 7. will see as needed. I have seen and discussed above patient with Dr Santiago Yung, neurology Agree with above tremor actually is a bit better today As pe my prior notes I will be happy to see this man on an outpatient basis and address then whether the tremor warrants any attempt at rx and agree that i currently looks more essential than parkinsonian in type Neurology will sign off for now Santiago Yung MD
[2016-11-07] MEDS ORDERED: NURSING VERBAL MED ORDER ONE ×2 (17:45→18:00)
[2016-11-07] MEDS: CEFTRIAXONE SOD INJ 2,000 MG in DEXTROSE 5% ADD-VANTAGE 50ML 50 ML IV SCH (18:25)
[2016-11-07] MEDS ORDERED: PHARMACY GLYCEMIC MGMT CONSULT PRN (19:45)
[2016-11-07] MEDS: ACETAMINOPHEN 325 MG TAB PO PRN (19:49)
--- NOTE | 2016-11-07 20:28 | Pharmacy Progress Note ---
Glycemic Control Intl Consult Date of Service November 07, 2016. Scope Glycemic Pharmacist consulted by Dr Mejia on 11/07/16 for glycemic control and to write orders per [facility] inpatient glycemic control protocol Objective Weight (Kilograms): 107.000 Accuchecks BSG (last 24hrs): Test 11/06/16 20:24 11/07/16 07:31 11/07/16 07:39 11/07/16 16:04 Bedside Glucose 168 mg/dl (70-99) 124 mg/dl (70-99) 172 mg/dl (70-99) Random Glucose 113 mg/dl (70-99) Laboratory Data (last 24hrs) Test 11/07/16 07:39 Anion Gap 9.0 mmol/L BUN/Creatinine Ratio 28.8 Blood Urea Nitrogen 75 mg/dl Creatinine 2.60 mg/dl Potassium Level 3.6 mmol/L Sodium Level 130 mmol/L Recent Pertinent Medications Outpatient Anti-diabetic Regimen: * glipizide XL 15 mg PO daily * A1c = 7.6 % 07/13/16 Risk Factors for Insulin Resistance: * Diet: type 2 diabetic diet Assessment & Plan ASSESSMENT: * ADA & AACE recommend a goal blood sugar range 140-180 mg/dl for the majority of critically ill & non-critically ill patients. However, more stringent targets may be selected in individual cases. * Mr Aparicio is an 85 y/o M who was admitted for generalized weakness. He has been known to our service perviously. He now has an adverse reaction for generalized rash with Novolog and Lantus. This was added this admission. * Per the patient's senior user experience architect Jennifer, the patient was at [facility] in May of last year and received insulin. He developed a rash over his back and chest which continued while he was receiving insulin at [facility], through rehabilitation, and at home. It was bumpy and itched horribly. There was no rash near the injection site. The rash subsided a couple of weeks after stopping the insulin at the end of August. (Plus note physician documentation shows no rash during his hospitalization here at [facility]). She denies any respiratory problems or angioedema. Patient is willing to try Novolog again. * Will utilized Novolog with a higher goal range due to the patient's age. PLAN FOR INPATIENT GLYCEMIC CONTROL: * Holding outpatient oral diabetes medications * Correctional Insulin with NOVOLOG per scale ACHS * Goal Range: Low 140 mg/dL - High 180 mg/dL * Correction Factor: 30 mg/dL/unit * Nutritional / Prandial insulin per carb ratio of 1 unit per 10 grams CHO consumed * Please note that the plan above was derived based on current level of insulin resistance and hospital stress. These recommendations are appropriate for inpatient admission only. Plan of care upon discharge will need to be reassessed to avoid potential outpatient hypo/hyperglycemia. Thank you.
[2016-11-07] MEDS: INSULIN ASPART 100 UNITS/ML 3 ML PEN SC SCH (21:00)
[2016-11-07] MEDS ORDERED: NURSING VERBAL MED ORDER SCH ×2 (21:00)
[2016-11-07] MEDS ORDERED: HEPARIN IV LOW DOSE NO BOLUS SCH (22:25)
[2016-11-07] MEDS: HEPARIN 25,000 UNIT/500ML D5W 500 ML IV PRN (22:51)
[2016-11-08] VITALS (9 sets, daily range): BP systolic 93–121; BP diastolic 57–71; PULSE 82–99; TEMP 36.6–37; O2SAT 93–100
[2016-11-08 04:10] LABS: PARTIAL THROMBOPLASTIN RATIO 2.7
[2016-11-08 04:18] LABS: BUN/CREATININE RATIO 24.8 (10-20); CREATININE 2.4 mg/dl (0.60-1.40); FERRITIN 625.6 ng/ml (8.0-388.0); MAGNESIUM 2.2 mg/dl (1.8-2.4)
[2016-11-08] MEDS: DOCUSATE SODIUM 100 MG CAP PO SCH ×2 (08:02→21:03)
[2016-11-08] MEDS: RANITIDINE HCL 150 MG TAB PO SCH (08:03)
[2016-11-08] MEDS: CARVEDILOL 3.125 MG TAB PO SCH (08:03)
[2016-11-08] MEDS: SERTRALINE HCL 50 MG TAB PO SCH (08:03)
[2016-11-08] MEDS: ASPIRIN 81 MG ECTAB PO SCH (08:03)
[2016-11-08] MEDS: ISOSORBIDE MONONITRATE 60 MG TABCR PO SCH (08:03)
[2016-11-08] MEDS: CLOPIDOGREL BISULFATE 75 MG TAB PO SCH (08:03)
[2016-11-08] MEDS: FINASTERIDE 5 MG TAB PO SCH (08:03)
[2016-11-08] MEDS: SENNA 8.6 MG TAB PO SCH (08:03)
[2016-11-08] MEDS: INSULIN ASPART 100 UNITS/ML 3 ML PEN SC SCH ×5 (08:04→21:00)
--- NOTE | 2016-11-08 10:39 | Progress Note ---
Internal Med Progress Note Date of Service: November 08, 2016. Provider Documentation: SUBJECTIVE: Patient is feeling better Generalized weakness + but improved No chest pain, fever, chills, nausea, vomiting, abdominal pain. Has not had a BM for few days OBJECTIVE: Vital Signs-as noted below Exam: General Appearance:Moderately built and nourished, no apparent distress, + Tremor Neck: supple Respiratory/Chest: Decreased breath sounds bilaterally, no wheezing, rhonchi Cardiovascular: S1, S2, + systolic murmur Abdomen/GI:Soft, Non tender, Bowel sounds present Extremities/Musculoskelatal:normal inspection, Trace edema Neurologic/Psych:AAOX3, grossly no focal neurological deficits ; Tremors + Lab data as noted below. ASSESSMENT & PLAN: ASSESSMENT & PLAN : NSTEMI Patient had atypical chest pain vs epigastric pain yesterday, trops were drawn- 0.105 - > 1.480 --> 6.180 --> 8.910 -Denies any complaints today -EKG- QTC prolonged 601, Non specific ST/T changes, compared to prior EKG, EKG ordered today. -IV Heparin started on 11/07/16 -Continue with ASA 81 mg, Plavix 75 mg daily, Imdur 60 mg, Carvedilol 3.125 mg PO BID. Will add statin. -On 3 blood thinners- need to monitor closely as had small quantity blood in much today -Cardiology on board. 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 Afib, but per cardiology most likely PACs, not Atrial fibrillation -Monitor electrolytes/Telemetry HYPERKALEMIA: Resolved Secondary to ARF and chronic potassium supplements -Received calcium gluconate, dextrose and insulin, bicarbonate -Monitor HYPOGLYCEMIA: Resolved H/O DM II, Patient on glipizide -Hold all diabetic meds for now -Monitor glucose level -Hypoglycemia protocol, ISS HYPOVOLEMIC HYPONATREMIA: Improved -Continue fluid restriction: 1.8 litres per day - Monitor CAD S/P CABG and stent placement: -Continue ASA, Plavix, Coreg, Imdur -Hold CHARO for now H/O systolic CHF: Last EF:40-45% -Hold diuretics for now UTI: Urine culture:Enterococcus fecalis ? Contamination -Continue IV Ceftriaxone # 5 -Blood Cultures: Negative SLEEP APNEA: -Continue CPAP HYPERTENSION: -Lisinopril on hold -Monitor H/O PARKINSONISM ESSENTIAL TREMOR Not on any meds Appreciate Neurology input Needs follow up with Neurology as outpatient GI Px: Protonix DVT Px: Heparin SQ Code Status: DNR/DNI POLST Form filled out today (updated from prior one as it said comfort measures only which patient claims he never agreed to) and in his chart - per patient/ son--> DNR/DNI DISPOSITION Medical mx in progress To be determined Continue with tele monitoring Vital Signs: Date Time Temp Pulse Resp B/P Pulse Ox O2 Delivery O2 Flow Rate FiO2 11/08/16 08:00 Room Air 11/08/16 07:13 36.6 82 20 107/63 97 Room Air 11/08/16 05:39 36.6 84 22 107/68 95 BiPAP 2.0 11/08/16 04:00 95 Nasal Cannula 2.0 BiPAP 11/08/16 00:24 36.7 84 18 105/66 97 Nasal Cannula 1.0 11/08/16 00:00 95 Nasal Cannula 2.0 BiPAP 11/07/16 20:15 36.6 84 20 98/59 100 Nasal Cannula 2.0 11/07/16 20:00 95 Nasal Cannula 2.0 11/07/16 16:00 95 Nasal Cannula 2.0 11/07/16 15:42 36.7 89 20 102/61 95 2.0 11/07/16 12:06 36.7 87 18 97/58 96 Nasal Cannula 2.0 11/07/16 11:30 Nasal Cannula 2.0 11/07/16 10:44 36.4 95 20 97 2.0 Lab Results: Results Past 24 Hours Test 11/07/16 14:57 11/07/16 16:04 11/07/16 20:58 11/07/16 21:22 Range/Units Troponin I 1.480 6.180 0-0.045 ng/ml Bedside Glucose 172 139 70-99 mg/dl Test 11/08/16 03:38 11/08/16 07:40 Range/Units Activated Partial Thromboplast Time 71.4 21.0-31.0 SECONDS Partial Thromboplastin Ratio 2.7 Sodium Level 131 136-145 mmol/L Potassium Level 4.0 3.5-5.1 mmol/L Chloride Level 94 98-107 mmol/L Carbon Dioxide Level 31 21-32 mmol/L Anion Gap 6.0 3-11 mmol/L Blood Urea Nitrogen 59 7-18 mg/dl Creatinine 2.40 0.60-1.40 mg/dl Est Creatinine Clear Calc Drug Dose 25.7 ml/min Estimated GFR () 27.1 Estimated GFR (Non- 23.4 BUN/Creatinine Ratio 24.8 10-20 Random Glucose 123 70-99 mg/dl Calcium Level 9.0 8.5-10.1 mg/dl Magnesium Level 2.2 1.8-2.4 mg/dl Iron Level 51 35-175 mcg/dl Total Iron Binding Capacity 226 250-450 mcg/dl Transferrin 199 200-360 mg/dl Transferrin % Saturation 18 20-50 % Ferritin 625.6 8.0-388.0 ng/ml Troponin I 8.910 0-0.045 ng/ml Bedside Glucose 107 70-99 mg/dl
[2016-11-08] MEDS ORDERED: POLYETHYLENE (MIRALAX) 17 GM PACK PO PRN (10:45)
[2016-11-08] MEDS ORDERED: DOCUSATE SODIUM 100 MG CAP PO PRN (10:45)
[2016-11-08 11:08] LABS: PARTIAL THROMBOPLASTIN RATIO 1.9
[2016-11-08] MEDS ORDERED: PERFLUTREN LIPID MICROSPHERE (DEFINITY) IV ONE (11:27)
--- NOTE | 2016-11-08 12:24 | ECHOCARDIOGRAM REPORT ---
*NOTICE TO RECEIVING REPUBLICAN AGENCY This information is strictly Confidential and protected under [place] law. [place] law prohibits you from making any further disclosure of this information unless further disclosure is expressly permitted by the written consent of the person to whom it pertains or is authorized by law. A general authorization for the release of medical or other information is not sufficient for this purpose. Hospital accepts no responsibility if the information is made available to any other person, INCLUDING THE PATIENT. Interpretation Summary * Name: BECKA SINGH Study Date: 11/08/2016 10:54 AM BP: 107/63 mmHg * Patient Location: [facility]\S\N275\S\1 HR: 82 * : 1930 (M/d/yyyy) Gender: Male Height: 68 in * Age: 85 yrs Ethnicity: CA Weight: 235 lb * Ordering Physician: Jean Gutierrez DO * Performed By: Gela Mathews * * Reason For Study: ELEVATED TROPONIN * BSA: 2.2 m2 * -- Conclusions -- * Compared to previous study of 07/12/16: new wall motion abnormalities involving the anterior and anterolateral chavez. * Mildly dilated LV chamber size with mild concentric LVH. * There is a large sized anterior, anterolateral, posterior, and inferior wall motion abnormality with severe hypokinesis to akinesis of the segments. * LV systolic function severely reduced EF 30-35%. * Moderate aortic stenosis. * Mild mitral regurgitation. * Mild left atrial enlargement. Procedure Details * A complete two-dimensional transthoracic echocardiogram was performed (2D, M-mode, Doppler and color flow Doppler). * The study was technically difficult. * There were technical limitations due to patient'spoor positioning * A contrast injection of Definity was performed to improve assessment of LV function. * Contrast was injected into an intravenous site in the left arm. * One vial of Definity ultrasound contrast was diluted in normal saline to a total volume of 10 ml. A total of '4' ml of solution was administered during imaging. * Lot # [id number] of Definity utilized for procedure. * Expiration date 10/11. Left Ventricle * The left ventricle is mildly dilated. * There is no thrombus. * There is mild concentric left ventricular hypertrophy. * Ejection Fraction = 30-35%. * There is a large sized anterior, anterolateral, posterior, and inferior wall motion abnormality with severe hypokinesis to akinesis of the segments. Right Ventricle * The right ventricular cavity size is normal (basal dimension <4.2 cm in right ventricular apical 4-chamber view). * The right ventricular systolic function is normal as assessed by tricuspid annular plane systolic excursion (TAPSE) (normal >1.5 cm). Atria * The left atrium is mildly dilated. * Right atrial size is normal. * No ASD detected; PFO is not assessed. Mitral Valve * Calcified mitral apparatus. * There is moderate to severe mitral annular calcification. * There is no mitral valve stenosis. * There is mild mitral regurgitation. Tricuspid Valve * The tricuspid valve anatomy is normal. * There is no tricuspid stenosis. * There is mild to moderate tricuspid regurgitation. Aortic Valve * The aortic valve is trileaflet. The aortic valve is severely calcified. Moderate aortic regurgitation. Doppler and 2D imaging of the aortic valve are discordant. Moderate aortic stenosis is present. Pulmonic Valve * The pulmonary valve is not well seen, but the Doppler examination is normal without significant regurgitation or stenosis. Great Vessels * The aortic root is normal size. Pericardium/Pleural * There is no pericardial effusion. Left Ventricular Diastolic Function * Diastolic dysfunction, Grade II (pseudonormalization pattern). MMode 2D Measurements and Calculations IVSd 1.5 cm IVSs 2.0 cm LVIDd 5.8 cm LVIDs 5.1 cm LVPWd 0.98 cm LVPWs 1.1 cm IVS/LVPW 1.6 FS 12.0 % EDV(Teich) 164.6 ml ESV(Teich) 122.5 ml EF(Teich) 25.6 % EDV(cubed) 192.1 ml ESV(cubed) 130.8 ml EF(cubed) 31.9 % % IVS thick 30.4 % % LVPW thick 11.6 % LV mass(C)d 314.6 grams LV mass(C)dI 143.7 grams/m\S\2 LV mass(C)s 346.5 grams LV mass(C)sI 158.3 grams/m\S\2 CO(Teich) 4.1 l/min CI(Teich) 1.9 l/min/m\S\2 SV(Teich) 42.1 ml SI(Teich) 19.2 ml/m\S\2 CO(cubed) 6.0 l/min CI(cubed) 2.7 l/min/m\S\2 SV(cubed) 61.3 ml SI(cubed) 28.0 ml/m\S\2 EPSS 2.8 cm Ao root diam 0.78 cm Ao root area 0.48 cm\S\2 LA dimension 4.1 cm asc Aorta Diam 3.3 cm LA/Ao 5.2 LVOT diam 1.8 cm LVOT area 2.7 cm\S\2 LVAd ap4 45.1 cm\S\2 LVLd ap4 8.8 cm EDV(MOD-sp4) 186.0 ml LVAs ap4 36.4 cm\S\2 LVLs ap4 7.7 cm ESV(MOD-sp4) 141.0 ml EF(MOD-sp4) 24.2 % LVAd ap2 46.7 cm\S\2 LVLd ap2 9.0 cm EDV(MOD-sp2) 200.0 ml LVAs ap2 38.5 cm\S\2 LVLs ap2 8.1 cm ESV(MOD-sp2) 151.0 ml EF(MOD-sp2) 24.5 % CO(MOD-sp4) 4.4 l/min CI(MOD-sp4) 2.0 l/min/m\S\2 SV(MOD-sp4) 45.0 ml SI(MOD-sp4) 20.6 ml/m\S\2 CO(MOD-sp2) 4.8 l/min CI(MOD-sp2) 2.2 l/min/m\S\2 SV(MOD-sp2) 49.0 ml SI(MOD-sp2) 22.4 ml/m\S\2 Doppler Measurements and Calculations MV E max isidoro 152.3 cm/sec MV A max isidoro 125.9 cm/sec MV E/A 1.2 MV dec time 0.15 sec Ao V2 max 257.2 cm/sec Ao max PG 26.5 mmHg Ao max PG (full) 22.8 mmHg JOSS(V,A) 0.99 cm\S\2 JOSS(V,D) 0.99 cm\S\2 LV V1 max PG 3.7 mmHg LV V1 max 95.7 cm/sec PA V2 max 67.4 cm/sec PA max PG 1.8 mmHg PI end-d isidoro 137.9 cm/sec TR max isidoro 335.8 cm/sec
--- NOTE | 2016-11-08 12:25 | Cardiology Follow-Up ---
Subjective Subjective Date of Service: November 08, 2016. Pt evaluation today including: conversation w/ patient, physical exam, chart review, lab review, review of studies, review of inpatient medication list Additional Details: Pt seen and examined, states that he feels fine. Abdominal discomfort resolved. Denies cp, sob, palpitations, lightheadedness or dizziness. Tele reviewed: sinus rhythm without arrhythmia Problem List Medical Problems: (1) Acute renal failure Status: Acute (2) Altered mental status Status: Acute (3) Generalized weakness Status: Acute (4) Hyperkalemia Status: Acute (5) Hypoglycemia Status: Acute (6) Swelling of left lower extremity Status: Acute (7) Urinary tract infection Status: Acute Review of Systems Constitutional: + weakness ENT: + hearing loss (normal for patient) Respiratory: + dyspnea on exertion, No cough, No dyspnea at rest Cardiac: + edema, No chest pain Abdomen: + problem reported (no BM two days), No nausea, No pain, No vomiting Musculoskeletal: + joint pain, + muscle pain Male : No problem reported Neurologic: + weakness Psychiatric: No anxiety, No depression symptoms Objective Vital Signs Last Vital Signs Documentation Date Time Temp Pulse Resp B/P Pulse Ox O2 Delivery O2 Flow Rate FiO2 11/08/16 11:55 Room Air 11/08/16 07:13 36.6 82 20 107/63 97 11/08/16 05:39 2.0 Physical Exam: General Appearance: no apparent distress, + obese, + pertinent finding (very hard of hearing, does not have hearing aides with him) Eyes: bilateral eyes EOMI, bilateral eyes PERRL, bilateral eyes normal inspection ENT: normal ENT inspection, hearing grossly normal, pharynx normal, + pertinent finding (hard of hearing) Neck: supple, no adenopathy, no JVD Respiratory/Chest: lungs clear, no respiratory distress, no accessory muscle use, + decreased breath sounds (bilateral bases) Cardiovascular: + irregularly irregular Abdomen: normal bowel sounds, non tender, soft, no organomegaly, no pulsatile mass Extremities: normal inspection, no pedal edema, no calf tenderness 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 frequent PAC's EKG this AM questionable for afib had patient transferred to tele for further eval now more clear, it is frequent PAC's likely secondary to electrolyte abnormalities and renal impairment no medications 2. indigestion resolved 3. troponin elevation asymptomatic new wall motion abnormality on echo involving anterolateral wall given his renal function and lack of symptoms believe medical management is the most prudent course of action, which was also recommended in October of 2015 patient agreeable cont heparin for 48 hours cont asa, plavix, imdur and atorvastatin will change coreg to toprol for greater beta blockade cont to monitor
[2016-11-08] MEDS ORDERED: METOPROLOL TARTRATE 25 MG TAB PO ONE (13:09)
[2016-11-08] MEDS: POLYETHYLENE (MIRALAX) 17 GM PACK PO PRN (15:51)
[2016-11-08] MEDS: AMOXICILLIN 500 MG CAP PO SCH (15:52)
--- NOTE | 2016-11-08 15:59 | Nephrology Progress Note ---
Nephrology Progress Note Date of Service: November 08, 2016. Subjective 85 yo male with ckd stage 4 with baseline creatinine in the 2s who presented with enterococcus uti, neil and hyperkalemia. Patient is seated upright in bedside chair. patient was awoken from sleep for interview and patient has difficulty maintaining conversation and providing appropriate answers. patient denies any SOB. states that appetite is good. no tremors during interview. Objective Date Time Temp Pulse Resp B/P Pulse Ox O2 Delivery O2 Flow Rate FiO2 11/08/16 14:37 37.0 96 18 93/58 96 Nasal Cannula 2.0 11/08/16 13:00 99 20 115/71 93 Nasal Cannula 2.0 11/08/16 11:55 Room Air 11/08/16 08:00 Room Air 11/08/16 07:13 36.6 82 20 107/63 97 Room Air 11/08/16 05:39 36.6 84 22 107/68 95 BiPAP 2.0 11/08/16 04:00 95 Nasal Cannula 2.0 BiPAP 11/08/16 00:24 36.7 84 18 105/66 97 Nasal Cannula 1.0 11/08/16 00:00 95 Nasal Cannula 2.0 BiPAP 11/07/16 20:15 36.6 84 20 98/59 100 Nasal Cannula 2.0 11/07/16 20:00 95 Nasal Cannula 2.0 11/07/16 16:00 95 Nasal Cannula 2.0 Physical Exam: General-AAOX3, hard of hearing Eyes-no scleral icterus ENT-mmm Neck-supple Lungs-decreased at bases Heart-2/6 systolic murmur Abdomen-bs+ s/nt/nd Extremities-+1 edema Neuro-tremors and generalized weakness Current Inpatient Medications Medications (Trade) Dose Ordered Sig/Vijay Route Start Time Stop Time Status Last Admin Dose Admin Heparin Sodium (Porcine) (Heparin Sq 5000 Unit/0.5ml) 5,000 unit Q8 SQ 11/03/16 22:00 12/03/16 21:59 Future Hold 11/07/16 21:03 5,000 UNIT Acetaminophen (Tylenol Tab) 650 mg Q4H PRN PO 11/03/16 19:00 12/03/16 18:59 11/07/16 19:49 650 MG Ondansetron HCl (Zofran Inj) 4 mg Q6H PRN IV 11/03/16 19:00 12/03/16 18:59 11/07/16 10:36 4 MG Aspirin (Ecotrin Tab) 81 mg QAM PO 11/04/16 09:00 12/04/16 08:59 11/08/16 08:03 81 MG Clopidogrel Bisulfate (plAVix TAB) 75 mg QAM PO 11/04/16 09:00 12/04/16 08:59 11/08/16 08:03 75 MG Docusate Sodium (coLACE CAP) 100 mg BID PO 11/03/16 21:00 12/03/16 20:59 11/08/16 08:02 100 MG Finasteride (Proscar Tab) 5 mg QAM PO 11/04/16 09:00 12/04/16 08:59 11/08/16 08:03 5 MG Albuterol/ Ipratropium (Duoneb) 3 ml Q6 PRN INH 11/03/16 19:00 12/03/16 18:59 Isosorbide Mononitrate (Imdur Ext Rel Tab) 60 mg QAM PO 11/04/16 09:00 12/04/16 08:59 11/08/16 08:03 60 MG Senna (Senokot Tab) 8.6 mg QAM PO 11/04/16 09:00 12/04/16 08:59 11/08/16 08:03 8.6 MG Sertraline HCl (Zoloft Tab) 50 mg QAM PO 11/04/16 09:00 12/04/16 08:59 11/08/16 08:03 50 MG Triamcinolone Acetonide (Kenalog 0.1% Cream) 1 appln BID PRN EXT 11/03/16 19:00 12/03/16 18:59 Polyethylene (Miralax Powder Packet) 17 gm DAILY PRN PO 11/03/16 19:30 12/03/16 19:29 Glucose (Glucose 40% Gel) 15-30 GRAMS 15 GRAMS... UD PRN PO 11/03/16 21:15 12/03/16 21:14 Glucose (Glucose Chew Tab) 4-8 Tablets 4 Tabl... UD PRN PO 11/03/16 21:15 12/03/16 21:14 Dextrose (Dextrose 50% 50ML Syringe) 25-50ML OF 50% DW IV FOR... UD PRN IV 11/03/16 21:15 12/03/16 21:14 11/04/16 04:25 25 ML Glucagon (Glucagon Inj) 1 mg UD PRN SQ 11/03/16 21:15 12/03/16 21:14 Ranitidine HCl (zANTac TAB) 150 mg DAILY PO 11/08/16 09:00 12/08/16 08:59 11/08/16 08:03 150 MG Calcium Carbonate (Tums Chew Tab) 500 mg Q2HWA PRN PO 11/07/16 11:45 12/07/16 11:44 Miscellaneous Information (Consult Glycemic Management Pharmacy) 1 ea UD PRN N/A 11/07/16 19:45 12/07/16 19:44 Insulin Aspart SLIDING SCALE ACHS SC 11/07/16 21:00 12/07/16 20:59 11/08/16 08:04 2 UNITS Heparin Sodium/ Dextrose (Heparin 25,000 Unit/500ml D5W) 500 ml @ 18 mls/hr Q24H PRN IV 11/07/16 22:45 12/07/16 22:44 11/07/16 22:51 20 MLS/HR Docusate Sodium (coLACE CAP) 100 mg BID PRN PO 11/08/16 10:45 12/08/16 10:44 Atorvastatin Calcium (Lipitor Tab) 80 mg DAILY PO 11/09/16 09:00 12/09/16 08:59 Metoprolol Tartrate (Lopressor Tab) 25 mg BID PO 11/08/16 21:00 12/08/16 20:59 Amoxicillin (Amoxil Cap) 500 mg BIDM PO 11/08/16 17:00 11/13/16 16:59 Last 24 Hours Test 11/07/16 16:04 11/07/16 20:58 11/07/16 21:22 11/08/16 03:38 Bedside Glucose 172 mg/dl 139 mg/dl Troponin I 6.180 ng/ml 8.910 ng/ml Activated Partial Thromboplast Time 71.4 SECONDS Partial Thromboplastin Ratio 2.7 Sodium Level 131 mmol/L Potassium Level 4.0 mmol/L Chloride Level 94 mmol/L Carbon Dioxide Level 31 mmol/L Anion Gap 6.0 mmol/L Blood Urea Nitrogen 59 mg/dl Creatinine 2.40 mg/dl Est Creatinine Clear Calc Drug Dose 25.7 ml/min Estimated GFR () 27.1 Estimated GFR (Non- 23.4 BUN/Creatinine Ratio 24.8 Random Glucose 123 mg/dl Calcium Level 9.0 mg/dl Magnesium Level 2.2 mg/dl Iron Level 51 mcg/dl Total Iron Binding Capacity 226 mcg/dl Transferrin 199 mg/dl Transferrin % Saturation 18 % Ferritin 625.6 ng/ml Test 11/08/16 07:40 11/08/16 10:45 11/08/16 11:34 Bedside Glucose 107 mg/dl 120 mg/dl Activated Partial Thromboplast Time 48.7 SECONDS Partial Thromboplastin Ratio 1.9 Assessment & Plan [id number] possibly from combination of atn with uti and concomitant volume depletion. At this time creatinine continues to improve despite stopping IV fluids. Patient currently on Heparin drip. Concerned that patient may be confused but difficult to evaluate due to hearing deficit. Let RN know and instructed to alert primary service if he also seemed confused to her. Patient is accepted into [facility] pending insurance. Lujan still in place and may be able to attempt trial without lujan later in the week. for now, volume status ok and no need to do dialysis at this time. will continue to monitor. Anemia: stable at 9.6. May consider IV iron based on iron studies. Defer to primary service. This patient was seen and treated with direct collaboration with Dr. Nice. Thank you for the opportunity to participate in this patient's care. Appreciate the Consult. ATTENDING NOTE: I performed a history and physical examination of the patient, including specifically on history- pt with difficulty hearing, continues to be weak, on physical exam-still with lujan catheter, pulm-decreased at bases, +1 edema, and my impression and plan are [id number]-creatinine trending down. pt still weak so hesitant to remove lujan at this time. likely will need rehab. off iv fluids. hold off on restarting diuretics for now, but likely to restart tomorrow and consider removal of lujan tomorrow as well. iron sat is low but above 15%, no procrit at this time. if hg levels contyinue to trend down below 9 , consider iv iron at that time. hesitant since theoretically not advised in setting of infection. I have discussed the patient's management with Merna Baron PA-C, Please refer to above note for the documented findings and plan of care. Suri Oncu DO
[2016-11-08] MEDS: METOPROLOL TARTRATE 25 MG TAB PO SCH (21:03)
[2016-11-09 00:14] VITALS: BP 98/59; PULSE 77; TEMP 37; O2SAT 96
[2016-11-09 07:14] VITALS: BP 101/66; PULSE 81; TEMP 36.7; O2SAT 96
[2016-11-09 07:36] LABS: HEMATOCRIT 31.1 % (42-52); MEAN CELL VOLUME 92.6 fL (80-100); MEAN CORPUSCULAR HEMOGLOBIN 30.1 pg (25-34); MEAN CORPUSCULAR HGB CONC 32.5 g/dl (32-36); MEAN PLATELET VOLUME 9.6 fL (7.4-10.4); PLATELET COUNT 177 K/uL (130-400); RED BLOOD COUNT 3.36 M/uL (4.7-6.1)
[2016-11-09 07:52] LABS: PARTIAL THROMBOPLASTIN RATIO 1.8
[2016-11-09 08:06] LABS: CHOLESTEROL/HDL RATIO 5.3
[2016-11-09] MEDS: ASPIRIN 81 MG ECTAB PO SCH (08:13)
[2016-11-09] MEDS: AMOXICILLIN 500 MG CAP PO SCH ×2 (08:13→17:29)
[2016-11-09] MEDS: DOCUSATE SODIUM 100 MG CAP PO SCH ×2 (08:13→21:13)
[2016-11-09] MEDS: FINASTERIDE 5 MG TAB PO SCH (08:14)
[2016-11-09] MEDS: SENNA 8.6 MG TAB PO SCH (08:14)
[2016-11-09] MEDS: RANITIDINE HCL 150 MG TAB PO SCH (08:14)
[2016-11-09] MEDS: ATORVASTATIN 40 MG TAB PO SCH (08:14)
[2016-11-09] MEDS: CLOPIDOGREL BISULFATE 75 MG TAB PO SCH (08:14)
[2016-11-09] MEDS: POLYETHYLENE (MIRALAX) 17 GM PACK PO PRN (08:14)
[2016-11-09] MEDS: METOPROLOL TARTRATE 25 MG TAB PO SCH ×2 (08:14→21:13)
[2016-11-09] MEDS: ISOSORBIDE MONONITRATE 60 MG TABCR PO SCH (08:14)
[2016-11-09] MEDS: SERTRALINE HCL 50 MG TAB PO SCH (08:14)
[2016-11-09] MEDS: INSULIN ASPART 100 UNITS/ML 3 ML PEN SC SCH ×4 (08:22→21:00)
--- NOTE | 2016-11-09 08:54 | Nephrology Progress Note ---
Nephrology Progress Note Date of Service: November 09, 2016. Subjective 85 yo male with ckd stage 4 with baseline creatinine in the 2s who presented with enterococcus uti, alida and hyperkalemia. Patient is seated comfortably in bed. States that he slept very well last night. Eating breakfast. Appetite is good. does not appear confused. Denies any SOB, chest pain, nausea. Objective Date Time Temp Pulse Resp B/P Pulse Ox O2 Delivery O2 Flow Rate FiO2 11/09/16 07:35 Nasal Cannula 2.0 11/09/16 07:14 36.7 81 18 101/66 96 Nasal Cannula 2.0 11/09/16 04:00 Nasal Cannula 2.0 BiPAP 11/09/16 00:14 37.0 77 20 98/59 96 CPAP 11/09/16 00:00 Nasal Cannula 2.0 BiPAP 11/08/16 20:00 Nasal Cannula 2.0 11/08/16 19:59 36.9 92 20 121/57 100 Nasal Cannula 2.0 11/08/16 16:00 95 Nasal Cannula 2.0 11/08/16 14:37 37.0 96 18 93/58 96 Nasal Cannula 2.0 11/08/16 13:00 99 20 115/71 93 Nasal Cannula 2.0 11/08/16 11:55 Room Air Physical Exam: General-AAOX3, hard of hearing Eyes-no scleral icterus ENT-mmm Neck-supple Lungs-decreased at bases Heart-2/6 systolic murmur Abdomen-bs+ s/nt/nd Extremities-+1 edema Neuro-tremors and generalized weakness Current Inpatient Medications Medications (Trade) Dose Ordered Sig/Vijay Route Start Time Stop Time Status Last Admin Dose Admin Heparin Sodium (Porcine) (Heparin Sq 5000 Unit/0.5ml) 5,000 unit Q8 SQ 11/03/16 22:00 12/03/16 21:59 Future Hold 11/07/16 21:03 5,000 UNIT Acetaminophen (Tylenol Tab) 650 mg Q4H PRN PO 11/03/16 19:00 12/03/16 18:59 11/07/16 19:49 650 MG Ondansetron HCl (Zofran Inj) 4 mg Q6H PRN IV 11/03/16 19:00 12/03/16 18:59 11/07/16 10:36 4 MG Aspirin (Ecotrin Tab) 81 mg QAM PO 11/04/16 09:00 12/04/16 08:59 11/09/16 08:13 81 MG Clopidogrel Bisulfate (plAVix TAB) 75 mg QAM PO 11/04/16 09:00 12/04/16 08:59 11/09/16 08:14 75 MG Docusate Sodium (coLACE CAP) 100 mg BID PO 11/03/16 21:00 12/03/16 20:59 11/09/16 08:13 100 MG Finasteride (Proscar Tab) 5 mg QAM PO 11/04/16 09:00 12/04/16 08:59 11/09/16 08:14 5 MG Albuterol/ Ipratropium (Duoneb) 3 ml Q6 PRN INH 11/03/16 19:00 12/03/16 18:59 Isosorbide Mononitrate (Imdur Ext Rel Tab) 60 mg QAM PO 11/04/16 09:00 12/04/16 08:59 11/09/16 08:14 60 MG Senna (Senokot Tab) 8.6 mg QAM PO 11/04/16 09:00 12/04/16 08:59 11/09/16 08:14 8.6 MG Sertraline HCl (Zoloft Tab) 50 mg QAM PO 11/04/16 09:00 12/04/16 08:59 11/09/16 08:14 50 MG Triamcinolone Acetonide (Kenalog 0.1% Cream) 1 appln BID PRN EXT 11/03/16 19:00 12/03/16 18:59 Polyethylene (Miralax Powder Packet) 17 gm DAILY PRN PO 11/03/16 19:30 12/03/16 19:29 11/09/16 08:14 17 GM Glucose (Glucose 40% Gel) 15-30 GRAMS 15 GRAMS... UD PRN PO 11/03/16 21:15 12/03/16 21:14 Glucose (Glucose Chew Tab) 4-8 Tablets 4 Tabl... UD PRN PO 11/03/16 21:15 12/03/16 21:14 Dextrose (Dextrose 50% 50ML Syringe) 25-50ML OF 50% DW IV FOR... UD PRN IV 11/03/16 21:15 12/03/16 21:14 11/04/16 04:25 25 ML Glucagon (Glucagon Inj) 1 mg UD PRN SQ 11/03/16 21:15 12/03/16 21:14 Ranitidine HCl (zANTac TAB) 150 mg DAILY PO 11/08/16 09:00 12/08/16 08:59 11/09/16 08:14 150 MG Calcium Carbonate (Tums Chew Tab) 500 mg Q2HWA PRN PO 11/07/16 11:45 12/07/16 11:44 Miscellaneous Information (Consult Glycemic Management Pharmacy) 1 ea UD PRN N/A 11/07/16 19:45 12/07/16 19:44 Insulin Aspart SLIDING SCALE ACHS SC 11/07/16 21:00 12/07/16 20:59 11/09/16 08:22 2 UNITS Heparin Sodium/ Dextrose (Heparin 25,000 Unit/500ml D5W) 500 ml @ 18 mls/hr Q24H PRN IV 11/07/16 22:45 12/07/16 22:44 11/07/16 22:51 20 MLS/HR Docusate Sodium (coLACE CAP) 100 mg BID PRN PO 11/08/16 10:45 12/08/16 10:44 Atorvastatin Calcium (Lipitor Tab) 80 mg DAILY PO 11/09/16 09:00 12/09/16 08:59 11/09/16 08:14 80 MG Metoprolol Tartrate (Lopressor Tab) 25 mg BID PO 11/08/16 21:00 12/08/16 20:59 11/09/16 08:14 25 MG Amoxicillin (Amoxil Cap) 500 mg BIDM PO 11/08/16 17:00 11/13/16 16:59 11/09/16 08:13 500 MG Last 24 Hours Test 11/08/16 10:45 11/08/16 11:34 11/08/16 16:50 11/08/16 20:42 Activated Partial Thromboplast Time 48.7 SECONDS Partial Thromboplastin Ratio 1.9 Bedside Glucose 120 mg/dl 153 mg/dl 156 mg/dl Test 11/09/16 06:48 11/09/16 07:06 White Blood Count 12.80 K/uL Red Blood Count 3.36 M/uL Hemoglobin 10.1 g/dL Hematocrit 31.1 % Mean Corpuscular Volume 92.6 fL Mean Corpuscular Hemoglobin 30.1 pg Mean Corpuscular Hemoglobin Concent 32.5 g/dl RDW Standard Deviation 50.7 fL RDW Coefficient of Variation 14.8 % Platelet Count 177 K/uL Mean Platelet Volume 9.6 fL Activated Partial Thromboplast Time 47.1 SECONDS Partial Thromboplastin Ratio 1.8 Triglycerides Level 156 mg/dl Cholesterol Level 262 mg/dl HDL Cholesterol 49 mg/dl LDL Cholesterol, Calculated 182 mg/dl VLDL Cholesterol, Calculated 31 mg/dl Cholesterol/HDL Ratio 5.3 Bedside Glucose 114 mg/dl Assessment & Plan [id number] possibly from combination of atn with uti and concomitant volume depletion. to recheck creatinine to continue to follow trends. Not confused today. Clinically seems improved. Will try a trial without lujan to see if patient able to void. volume status appropriate-no indication for dialysis. Anemia: improved/stable at 10.1. Will continue to follow trends. This patient was seen and treated with direct collaboration with Dr. Nice. Thank you for the opportunity to participate in this patient's care. Appreciate the Consult. ATTENDING NOTE: I performed a history and physical examination of the patient, including specifically on history-denies chest pain or sob but did have stemi and on heparin drip-tolerating conservative measures well,on physical exam-decreased breath sounds at bases, and my impression and plan are ALIDA-creatinine improving and concerned with the nstemi about fluid overload and stress of heart. will restart diuretics today and remove lujan catheter to try to prevent secondary infections. was on lasix 120 tid and will start conservatively at 40mg a day. I have discussed the patient's management with Merna Baron PA-C, Please refer to above note for the documented findings and plan of care. Suri Nice DO
[2016-11-09 09:22] LABS: BUN/CREATININE RATIO 23.9 (10-20); CREATININE 2.3 mg/dl (0.60-1.40); POTASSIUM 4.2 mmol/L (3.5-5.1)
[2016-11-09 09:32] LABS: HEMATOCRIT 29.1 % (42-52); MEAN CELL VOLUME 93.3 fL (80-100); MEAN CORPUSCULAR HEMOGLOBIN 31.4 pg (25-34); MEAN CORPUSCULAR HGB CONC 33.7 g/dl (32-36); MEAN PLATELET VOLUME 9.3 fL (7.4-10.4); PLATELET COUNT 159 K/uL (130-400); RED BLOOD COUNT 3.12 M/uL (4.7-6.1); WHITE BLOOD COUNT 11.74 K/uL (4.8-10.8)
[2016-11-09 09:33] LABS: CALCIUM 9.3 mg/dl (8.5-10.1)
--- NOTE | 2016-11-09 09:34 | Progress Note ---
Internal Med Progress Note Date of Service: November 09, 2016. Provider Documentation: SUBJECTIVE: Patient is feeling better. Generalized weakness + but improved No chest pain, fever, chills, nausea, vomiting, abdominal pain. Has not had a BM for few days OBJECTIVE: Vital Signs-as noted below Exam: General Appearance:Moderately built and nourished, no apparent distress, + Tremor Neck: supple Respiratory/Chest: Decreased breath sounds bilaterally, no wheezing, rhonchi Cardiovascular: S1, S2, + systolic murmur Abdomen/GI:Soft, Non tender, Bowel sounds present Extremities/Musculoskelatal: Normal inspection, Trace edema Neurologic/Psych:AAOX3, grossly no focal neurological deficits ; Tremors + Lab data as noted below. ASSESSMENT & PLAN: ASSESSMENT & PLAN : NSTEMI : Patient had atypical chest pain vs epigastric pain on 11/08/16, trops were drawn - 0.105 - > 1.480 --> 6.180 --> 8.910 -Denies any complaints today -EKG- QTC prolonged- down to 487, Non specific ST/T changes, compared to prior EKG -IV Heparin started on 11/07/16- to be continued for 48 hours per d/w Cardiology -Continue with ASA 81 mg, Plavix 75 mg daily, Imdur 60 mg, Carvedilol 3.125 mg PO BID--> Changed to Lopressor 25 mg PO BID. Started Atorvastatin 80 mg (LDL 182 ) -On 3 blood thinners- need to monitor closely as had small quantity blood in mucus x 2 yesterday (Hb stable) -Cardiology on board. 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 IV : Resolving Likely secondary to Diuretics, CHARO inhibitors Baseline Cr : Low 2s, presented with 5, now down to 2.30 -S/P IV fluids- Discontinued on 11/07/16 -Held lisinopril. Diuretics on hold- but may consider re- starting it today as per Nephrology -Appreciate Nephrology input -Work up - Renal USD : Unremarkable PVCs: ? Afib, but per cardiology most likely PACs, not Atrial fibrillation -Monitor electrolytes/Telemetry HYPERKALEMIA: Resolved Secondary to ARF and chronic potassium supplements -Received calcium gluconate, dextrose and insulin, bicarbonate -Monitor HYPOGLYCEMIA: Resolved H/O DM II, Patient on glipizide -Hold all diabetic meds for now -Monitor glucose level -Hypoglycemia protocol, ISS HYPOVOLEMIC HYPONATREMIA: Improved -Continue fluid restriction: 1.8 litres per day - Monitor CAD S/P CABG and stent placement: -Continue ASA, Plavix, Coreg--> Changed to lopressor 25 mg PO BID per cardiology , Imdur -Hold CHARO for now H/O systolic CHF: Last EF:40-45% -Held diuretics---> Nephrology may plan to restart today UTI: Urine culture:Enterococcus fecalis ? Contamination S/P IV Rocephin x 5 days0---> Changed to Amoxicillin PO BID On 11/08/16 per c/s results (Day 2) -Blood Cultures: Negative SLEEP APNEA: -Continue CPAP HYPERTENSION: -Lisinopril on hold -Monitor H/O PARKINSONISM ESSENTIAL TREMOR Not on any meds Appreciate Neurology input Needs follow up with Neurology as outpatient GI Px: Protonix DVT Px: Heparin IV Code Status: DNR/DNI POLST Form filled out on 11/08/16 (updated from prior one as it said comfort measures only which patient claims he never agreed to) and in his chart - per patient/son--> DNR/DNI DISPOSITION Medical mx in progress To be determined Continue with tele monitoring Vital Signs: Date Time Temp Pulse Resp B/P Pulse Ox O2 Delivery O2 Flow Rate FiO2 11/09/16 07:35 Nasal Cannula 2.0 11/09/16 07:14 36.7 81 18 101/66 96 Nasal Cannula 2.0 11/09/16 04:00 Nasal Cannula 2.0 BiPAP 11/09/16 00:14 37.0 77 20 98/59 96 CPAP 11/09/16 00:00 Nasal Cannula 2.0 BiPAP 11/08/16 20:00 Nasal Cannula 2.0 11/08/16 19:59 36.9 92 20 121/57 100 Nasal Cannula 2.0 11/08/16 16:00 95 Nasal Cannula 2.0 11/08/16 14:37 37.0 96 18 93/58 96 Nasal Cannula 2.0 11/08/16 13:00 99 20 115/71 93 Nasal Cannula 2.0 11/08/16 11:55 Room Air Lab Results: Results Past 24 Hours Test 11/08/16 10:45 11/08/16 11:34 11/08/16 16:50 11/08/16 20:42 Range/Units Activated Partial Thromboplast Time 48.7 21.0-31.0 SECONDS Partial Thromboplastin Ratio 1.9 Bedside Glucose 120 153 156 70-99 mg/dl Test 11/09/16 06:48 11/09/16 07:06 11/09/16 08:48 Range/Units White Blood Count 12.80 4.8-10.8 K/uL Red Blood Count 3.36 4.7-6.1 M/uL Hemoglobin 10.1 14.0-18.0 g/dL Hematocrit 31.1 42-52 % Mean Corpuscular Volume 92.6 80-100 fL Mean Corpuscular Hemoglobin 30.1 25-34 pg Mean Corpuscular Hemoglobin Concent 32.5 32-36 g/dl RDW Standard Deviation 50.7 36.4-46.3 fL RDW Coefficient of Variation 14.8 11.5-14.5 % Platelet Count 177 130-400 K/uL Mean Platelet Volume 9.6 7.4-10.4 fL Activated Partial Thromboplast Time 47.1 21.0-31.0 SECONDS Partial Thromboplastin Ratio 1.8 Sodium Level 132 136-145 mmol/L Potassium Level 4.2 3.5-5.1 mmol/L Chloride Level 92 98-107 mmol/L Carbon Dioxide Level 32 21-32 mmol/L Anion Gap 8.0 3-11 mmol/L Blood Urea Nitrogen 55 7-18 mg/dl Creatinine 2.30 0.60-1.40 mg/dl Est Creatinine Clear Calc Drug Dose 21.9 ml/min Estimated GFR () 28.5 Estimated GFR (Non- 24.6 BUN/Creatinine Ratio 23.9 10-20 Random Glucose 119 70-99 mg/dl Triglycerides Level 156 0-150 mg/dl Cholesterol Level 262 0-200 mg/dl HDL Cholesterol 49 mg/dl LDL Cholesterol, Calculated 182 mg/dl VLDL Cholesterol, Calculated 31 mg/dl Cholesterol/HDL Ratio 5.3 Bedside Glucose 114 70-99 mg/dl
--- NOTE | 2016-11-09 10:56 | Pharmacy Progress Note ---
Pharmacy Glycemic Sign Off Nt Date of Service November 09, 2016. Assessment & Plan ASSESSMENT: * Pharmacy was consulted by Dr Mejia on 11/07/16 for glycemic control and to write orders per [facility] inpatient glycemic control protocol. * Major changes made by pharmacy to antidiabetic regimen include: * started Novolog correctional insulin with correction factor of 30 mg/dL/unit and carbohydrate ratio of 1:10 * Patient has been receiving/requiring ~5 units of insulin per day for adequate glycemic control * BSGs ranging 107- 156 mg/dl * Regimen has only required minor adjustments over the past 48hrs to achieve this level of control * Do not anticipate further changes in patient status that would quickly deteriorate glycemic control (i.e. patient to be NPO for upcoming procedure, steroids tapering, starting tube feedings, etc). * Please see recommendations for outpatient antidiabetic regimen below. PLAN FOR INPATIENT GLYCEMIC CONTROL: No changes needed to current regimen. * Continue NovoLog per scale ACHS * Goal range = 140- 180 mg/dl * CF = 30 mg/dl/unit * CR = 1 unit for ever 10 g CHO consumed * Pharmacy is signing off of glycemic consult and will no longer be making adjustments to inpatient regimen. Please feel free to re-consult if needed. Thank you. DISCHARGE RECOMMENDATIONS: * A1c 7.6 % on 07/13/16 * STOP Gluctrol XL 15 mg PO before breakfast (can contribute to hypoglycemia in the elderly with kidney dysfunction) * Reduce Januvia to 25 mg PO daily due to creatinine clearance
--- NOTE | 2016-11-09 11:00 | Cardiology Follow-Up ---
Subjective Subjective Date of Service: November 09, 2016. Pt evaluation today including: conversation w/ patient, physical exam, chart review, lab review, review of studies, review of inpatient medication list Additional Details: Pt seen and examined, states that he feels fine. Denies cp, sob, palpitations, lightheadedness or dizziness. Tele reviewed: sinus rhythm without arrhythmia. Problem List Medical Problems: (1) Acute renal failure Status: Acute (2) Altered mental status Status: Acute (3) Generalized weakness Status: Acute (4) Hyperkalemia Status: Acute (5) Hypoglycemia Status: Acute (6) Swelling of left lower extremity Status: Acute (7) Urinary tract infection Status: Acute Review of Systems Constitutional: + weakness ENT: + hearing loss (normal for patient) Respiratory: + dyspnea on exertion, No cough, No dyspnea at rest Cardiac: + edema, No chest pain Abdomen: + problem reported (no BM two days), No nausea, No pain, No vomiting Musculoskeletal: + joint pain, + muscle pain Male : No problem reported Neurologic: + weakness Psychiatric: No anxiety, No depression symptoms Objective Vital Signs Last Vital Signs Documentation Date Time Temp Pulse Resp B/P Pulse Ox O2 Delivery O2 Flow Rate FiO2 11/09/16 07:35 Nasal Cannula 2.0 11/09/16 07:14 36.7 81 18 101/66 96 Physical Exam: General Appearance: no apparent distress, + obese, + pertinent finding (very hard of hearing, does not have hearing aides with him) Eyes: bilateral eyes EOMI, bilateral eyes PERRL, bilateral eyes normal inspection ENT: normal ENT inspection, hearing grossly normal, pharynx normal, + pertinent finding (hard of hearing) Neck: supple, no adenopathy, no JVD Respiratory/Chest: lungs clear, no respiratory distress, no accessory muscle use, + decreased breath sounds (bilateral bases) Cardiovascular: + irregularly irregular Abdomen: normal bowel sounds, non tender, soft, no organomegaly, no pulsatile mass Extremities: normal inspection, no pedal edema, no calf tenderness 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 frequent PAC's resolved 2. indigestion resolved 3. troponin elevation asymptomatic new wall motion abnormality on echo involving anterolateral wall given his renal function and lack of symptoms believe medical management is the most prudent course of action, which was also recommended in October of 2015 patient agreeable cont heparin for 48 hours cont asa, plavix, imdur and atorvastatin coreg changed to toprol for greater beta blockade, tolerating well cont to monitor
[2016-11-09] MEDS ORDERED: SITA25TA PO (11:02)
[2016-11-09 11:22] VITALS: BP 96/59; PULSE 80; TEMP 36.7; O2SAT 99
[2016-11-09] MEDS: FUROSEMIDE 40 MG TAB PO SCH (12:08)
[2016-11-09 14:55] VITALS: BP 93/61; PULSE 85; TEMP 37.1; O2SAT 92
[2016-11-09 23:41] VITALS: BP 100/60; PULSE 74; TEMP 36.4; O2SAT 92
[2016-11-10] VITALS (7 sets, daily range): BP systolic 100–109; BP diastolic 58–69; PULSE 71–83; TEMP 36.4–37; O2SAT 93–97
[2016-11-10] MEDS: HEPARIN 25,000 UNIT/500ML D5W 500 ML IV PRN ×2 (03:42→07:46)
[2016-11-10 06:52] LABS: HEMATOCRIT 26.3 % (42-52); MEAN CELL VOLUME 92.6 fL (80-100); MEAN CORPUSCULAR HGB CONC 33.5 g/dl (32-36); MEAN PLATELET VOLUME 9.5 fL (7.4-10.4); PLATELET COUNT 175 K/uL (130-400); RED BLOOD COUNT 2.84 M/uL (4.7-6.1); WHITE BLOOD COUNT 10.49 K/uL (4.8-10.8)
[2016-11-10 07:00] LABS: PARTIAL THROMBOPLASTIN RATIO 1.7
[2016-11-10 07:25] LABS: BUN/CREATININE RATIO 26.2 (10-20); CALCIUM 9.1 mg/dl (8.5-10.1); CREATININE 2.1 mg/dl (0.60-1.40); POTASSIUM 3.7 mmol/L (3.5-5.1)
[2016-11-10] MEDS ORDERED: HEPARIN IV BOLUS 3,000 UNIT in SYRINGE 0 ML IV ONE (08:00)
[2016-11-10] MEDS: AMOXICILLIN 500 MG CAP PO SCH ×2 (08:07→17:16)
[2016-11-10] MEDS: ISOSORBIDE MONONITRATE 60 MG TABCR PO SCH (08:08)
[2016-11-10] MEDS: ASPIRIN 81 MG ECTAB PO SCH (08:08)
[2016-11-10] MEDS: ATORVASTATIN 40 MG TAB PO SCH (08:08)
[2016-11-10] MEDS: CLOPIDOGREL BISULFATE 75 MG TAB PO SCH (08:08)
[2016-11-10] MEDS: DOCUSATE SODIUM 100 MG CAP PO SCH ×2 (08:08→21:29)
[2016-11-10] MEDS: SERTRALINE HCL 50 MG TAB PO SCH (08:09)
[2016-11-10] MEDS: METOPROLOL TARTRATE 25 MG TAB PO SCH ×2 (08:09→21:28)
[2016-11-10] MEDS: FINASTERIDE 5 MG TAB PO SCH (08:09)
[2016-11-10] MEDS: FUROSEMIDE 40 MG TAB PO SCH ×2 (08:09→21:36)
[2016-11-10] MEDS: CALCIUM CARBONATE 500 MG CHEWABLE PO PRN (08:09)
[2016-11-10] MEDS: SENNA 8.6 MG TAB PO SCH (08:09)
[2016-11-10] MEDS: RANITIDINE HCL 150 MG TAB PO SCH (08:10)
[2016-11-10] MEDS: INSULIN ASPART 100 UNITS/ML 3 ML PEN SC SCH ×4 (08:12→21:00)
--- NOTE | 2016-11-10 09:03 | Progress Note ---
Internal Med Progress Note Date of Service: November 10, 2016. Provider Documentation: SUBJECTIVE: Patient is feeling better. Generalized weakness + but improved. OOB to chair. No chest pain, fever, chills, nausea, vomiting, abdominal pain. OBJECTIVE: Vital Signs-as noted below Exam: General Appearance:Moderately built and nourished, no apparent distress, + Tremor Neck: supple Respiratory/Chest: Decreased breath sounds bilaterally, no wheezing, rhonchi Cardiovascular: S1, S2, + systolic murmur Abdomen/GI:Soft, Non tender, Bowel sounds present Extremities/Musculoskelatal: Normal inspection, Trace edema Neurologic/Psych:AAOX3, grossly no focal neurological deficits ; Tremors + Lab data as noted below. ASSESSMENT & PLAN: ASSESSMENT & PLAN : NSTEMI : Patient had atypical chest pain vs epigastric pain on 11/08/16, trops were drawn - 0.105 - > 1.480 --> 6.180 --> 8.910 -Denies any cardiac complaints today -EKG- QTC prolonged- down to 487, Non specific ST/T changes, compared to prior EKG -IV Heparin started on 11/07/16 night- to be continued for 48 hours per d/w Cardiology. Discontinued today. -Continue with ASA 81 mg, Plavix 75 mg daily, Imdur 60 mg, Carvedilol 3.125 mg PO BID--> Changed to Lopressor 25 mg PO BID. Started Atorvastatin 80 mg (LDL 182 ) -Cardiology on board. 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 IV : Resolving Likely secondary to Diuretics, CHARO inhibitors Baseline Cr : Low 2s, presented with 5, now down to 2s -S/P IV fluids- Discontinued on 11/07/16 -Held lisinopril. Lasix restarted at a lower dose 40 mg (at home 120 mg TID) on 11/09/16 per nephrology on 11/09/16 -Appreciate Nephrology input -Work up - Renal USD : Unremarkable PVCs: ? Afib, but per cardiology most likely PACs, not Atrial fibrillation -Monitor electrolytes/Telemetry HYPERKALEMIA: Resolved Secondary to ARF and chronic potassium supplements -Received calcium gluconate, dextrose and insulin, bicarbonate -Monitor HYPOGLYCEMIA: Resolved H/O DM II, Patient on glipizide -Hold all diabetic meds for now -Monitor glucose level -Hypoglycemia protocol, ISS HYPOVOLEMIC HYPONATREMIA: Improved -Continue fluid restriction: 1.8 litres per day - Monitor CAD S/P CABG and stent placement: -Continue ASA, Plavix, Coreg--> Changed to lopressor 25 mg PO BID per cardiology , Imdur -Hold CHARO due to ALIDA/CKD H/O systolic CHF: Last EF:40-45% -Held diuretics initially--> Re started at a lower dose on 11/09/16 UTI: Urine culture:Enterococcus fecalis ? Contamination S/P IV Rocephin x 5 days ---> Changed to Amoxicillin PO BID On 11/08/16 per c/s results (Day 3) -Blood Cultures: Negative CHRONIC HYPOXIC RESP FAILURE -On Oxygen 2-4 L per patient day time and also on CPAP night time SLEEP APNEA: -Continue CPAP HYPERTENSION: -Lisinopril on hold and will be discontinued on discharge due to ALIDA/CKD -Monitor H/O PARKINSONISM ESSENTIAL TREMOR Not on any meds Appreciate Neurology input- per them tremor is more likely essential than of parkinsons Needs follow up with Neurology as outpatient CONSTIPATION -Laxatives added GI Px: -Protonix DVT Px: Heparin IV--> Change to Heparin SQ Code Status: DNR/DNI POLST Form filled out on 11/08/16 (updated from prior one as it said comfort measures only which patient claims he never agreed to) and in his chart - per patient/son--> DNR/DNI DISPOSITION PT/OT - recommends rehab. [facility]- Possible discharge in AM Vital Signs: Date Time Temp Pulse Resp B/P Pulse Ox O2 Delivery O2 Flow Rate FiO2 11/10/16 08:00 Nasal Cannula 2.0 11/10/16 07:16 36.7 77 20 102/58 97 Nasal Cannula 23.0 11/10/16 04:01 36.5 75 20 109/69 93 CPAP 2.0 11/10/16 04:00 CPAP 2.0 11/10/16 00:00 CPAP 2.0 11/09/16 23:41 36.4 74 20 100/60 92 CPAP 11/09/16 20:00 Nasal Cannula 2.0 11/09/16 16:00 Nasal Cannula 2.0 11/09/16 14:55 37.1 85 18 93/61 92 Nasal Cannula 2.0 11/09/16 12:00 Nasal Cannula 2.0 11/09/16 11:22 36.7 80 18 96/59 99 Nasal Cannula 2.0 Lab Results: Results Past 24 Hours Test 11/09/16 09:23 11/09/16 11:35 11/09/16 16:30 11/09/16 20:41 Range/Units White Blood Count 11.74 4.8-10.8 K/uL Red Blood Count 3.12 4.7-6.1 M/uL Hemoglobin 9.8 14.0-18.0 g/dL Hematocrit 29.1 42-52 % Mean Corpuscular Volume 93.3 80-100 fL Mean Corpuscular Hemoglobin 31.4 25-34 pg Mean Corpuscular Hemoglobin Concent 33.7 32-36 g/dl RDW Standard Deviation 50.4 36.4-46.3 fL RDW Coefficient of Variation 14.9 11.5-14.5 % Platelet Count 159 130-400 K/uL Mean Platelet Volume 9.3 7.4-10.4 fL Bedside Glucose 163 108 156 70-99 mg/dl Test 11/10/16 05:53 Range/Units White Blood Count 10.49 4.8-10.8 K/uL Red Blood Count 2.84 4.7-6.1 M/uL Hemoglobin 8.8 14.0-18.0 g/dL Hematocrit 26.3 42-52 % Mean Corpuscular Volume 92.6 80-100 fL Mean Corpuscular Hemoglobin 31.0 25-34 pg Mean Corpuscular Hemoglobin Concent 33.5 32-36 g/dl RDW Standard Deviation 50.9 36.4-46.3 fL RDW Coefficient of Variation 14.8 11.5-14.5 % Platelet Count 175 130-400 K/uL Mean Platelet Volume 9.5 7.4-10.4 fL Activated Partial Thromboplast Time 43.8 21.0-31.0 SECONDS Partial Thromboplastin Ratio 1.7 Sodium Level 131 136-145 mmol/L Potassium Level 3.7 3.5-5.1 mmol/L Chloride Level 93 98-107 mmol/L Carbon Dioxide Level 30 21-32 mmol/L Anion Gap 8.0 3-11 mmol/L Blood Urea Nitrogen 55 7-18 mg/dl Creatinine 2.10 0.60-1.40 mg/dl Est Creatinine Clear Calc Drug Dose 29.2 ml/min Estimated GFR () 31.8 Estimated GFR (Non- 27.5 BUN/Creatinine Ratio 26.2 10-20 Random Glucose 119 70-99 mg/dl Calcium Level 9.1 8.5-10.1 mg/dl
--- NOTE | 2016-11-10 09:33 | Cardiology Follow-Up ---
Subjective Subjective Date of Service: November 10, 2016. Pt evaluation today including: conversation w/ patient, physical exam, chart review, lab review, review of studies, review of inpatient medication list Additional Details: Pt seen and examined, oob, sleeping in chair. Denies complaint. Denies cp, sob, palpitations, lightheadedness, dizziness or syncope. Tele reviewed: sinus rhythm without arrhythmia or significant ectopy Problem List Medical Problems: (1) Acute renal failure Status: Acute (2) Altered mental status Status: Acute (3) Generalized weakness Status: Acute (4) Hyperkalemia Status: Acute (5) Hypoglycemia Status: Acute (6) Swelling of left lower extremity Status: Acute (7) Urinary tract infection Status: Acute Review of Systems Constitutional: + weakness ENT: + hearing loss (normal for patient) Respiratory: + dyspnea on exertion, No cough, No dyspnea at rest Cardiac: + edema, No chest pain Abdomen: + problem reported (no BM two days), No nausea, No pain, No vomiting Musculoskeletal: + joint pain, + muscle pain Male : No problem reported Neurologic: + weakness Psychiatric: No anxiety, No depression symptoms Objective Vital Signs Last Vital Signs Documentation Date Time Temp Pulse Resp B/P Pulse Ox O2 Delivery O2 Flow Rate FiO2 11/10/16 08:00 Nasal Cannula 2.0 11/10/16 07:16 36.7 77 20 102/58 97 Physical Exam: General Appearance: no apparent distress, + obese, + pertinent finding (very hard of hearing, does not have hearing aides with him) Eyes: bilateral eyes EOMI, bilateral eyes PERRL, bilateral eyes normal inspection ENT: normal ENT inspection, hearing grossly normal, pharynx normal, + pertinent finding (hard of hearing) Neck: supple, no adenopathy, no JVD Respiratory/Chest: lungs clear, no respiratory distress, no accessory muscle use, + decreased breath sounds (bilateral bases) Cardiovascular: + irregularly irregular Abdomen: normal bowel sounds, non tender, soft, no organomegaly, no pulsatile mass Extremities: normal inspection, no pedal edema, no calf tenderness 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 frequent PAC's resolved 2. indigestion resolved 3. NSTEMI asymptomatic new wall motion abnormality on echo involving anterolateral wall given his renal function and lack of symptoms believe medical management is the most prudent course of action, which was also recommended in October of 2015 patient agreeable heparin d/c'ed after 48 hours cont asa, plavix, metoprolol, imdur and atorvastatin ok to d/c to rehab from cardiac standpoint
[2016-11-10] MEDS: BISACODYL 5 MG TABEC PO PRN (11:14)
--- NOTE | 2016-11-10 15:19 | Nephrology Progress Note ---
Nephrology Progress Note Date of Service: November 10, 2016. Subjective 85 yo male with ckd stage 4 with baseline creatinine in the 2s who presented with enterococcus uti, neil and hyperkalemia. Patient is surrounded by family and seated OOB at chairside. states that he hasn't had a bowel movement in a while but nurse reports one yesterday night. also issues with eating due to tremors. Tolerating current lasix dosing well. able to urinate without lujan. Denies any SOB, chest pain, nausea. Objective Date Time Temp Pulse Resp B/P Pulse Ox O2 Delivery O2 Flow Rate FiO2 11/10/16 12:00 Nasal Cannula 2.0 11/10/16 11:12 36.9 71 18 103/68 97 Nasal Cannula 2.0 11/10/16 08:00 Nasal Cannula 2.0 11/10/16 07:16 36.7 77 20 102/58 97 Nasal Cannula 23.0 11/10/16 04:01 36.5 75 20 109/69 93 CPAP 2.0 11/10/16 04:00 CPAP 2.0 11/10/16 00:00 CPAP 2.0 11/09/16 23:41 36.4 74 20 100/60 92 CPAP 11/09/16 20:00 Nasal Cannula 2.0 11/09/16 16:00 Nasal Cannula 2.0 Physical Exam: General-AAOX3, hard of hearing Eyes-no scleral icterus ENT-mmm Neck-supple Lungs-decreased at bases Heart-2/6 systolic murmur Abdomen-bs+ s/nt/nd Extremities-+1 edema Neuro-tremors and generalized weakness Current Inpatient Medications Medications (Trade) Dose Ordered Sig/Vijay Route Start Time Stop Time Status Last Admin Dose Admin Acetaminophen (Tylenol Tab) 650 mg Q4H PRN PO 11/03/16 19:00 12/03/16 18:59 11/07/16 19:49 650 MG Ondansetron HCl (Zofran Inj) 4 mg Q6H PRN IV 11/03/16 19:00 12/03/16 18:59 11/07/16 10:36 4 MG Aspirin (Ecotrin Tab) 81 mg QAM PO 11/04/16 09:00 12/04/16 08:59 11/10/16 08:08 81 MG Clopidogrel Bisulfate (plAVix TAB) 75 mg QAM PO 11/04/16 09:00 12/04/16 08:59 11/10/16 08:08 75 MG Docusate Sodium (coLACE CAP) 100 mg BID PO 11/03/16 21:00 12/03/16 20:59 11/10/16 08:08 100 MG Finasteride (Proscar Tab) 5 mg QAM PO 11/04/16 09:00 12/04/16 08:59 11/10/16 08:09 5 MG Albuterol/ Ipratropium (Duoneb) 3 ml Q6 PRN INH 11/03/16 19:00 12/03/16 18:59 Isosorbide Mononitrate (Imdur Ext Rel Tab) 60 mg QAM PO 11/04/16 09:00 12/04/16 08:59 11/10/16 08:08 60 MG Senna (Senokot Tab) 8.6 mg QAM PO 11/04/16 09:00 12/04/16 08:59 11/10/16 08:09 8.6 MG Sertraline HCl (Zoloft Tab) 50 mg QAM PO 11/04/16 09:00 12/04/16 08:59 11/10/16 08:09 50 MG Triamcinolone Acetonide (Kenalog 0.1% Cream) 1 appln BID PRN EXT 11/03/16 19:00 12/03/16 18:59 Polyethylene (Miralax Powder Packet) 17 gm DAILY PRN PO 11/03/16 19:30 12/03/16 19:29 11/09/16 08:14 17 GM Glucose (Glucose 40% Gel) 15-30 GRAMS 15 GRAMS... UD PRN PO 11/03/16 21:15 12/03/16 21:14 Glucose (Glucose Chew Tab) 4-8 Tablets 4 Tabl... UD PRN PO 11/03/16 21:15 12/03/16 21:14 Dextrose (Dextrose 50% 50ML Syringe) 25-50ML OF 50% DW IV FOR... UD PRN IV 11/03/16 21:15 12/03/16 21:14 11/04/16 04:25 25 ML Glucagon (Glucagon Inj) 1 mg UD PRN SQ 11/03/16 21:15 6/10/17 21:14 Ranitidine HCl (zANTac TAB) 150 mg DAILY PO 11/08/16 09:00 12/08/16 08:59 11/10/16 08:10 150 MG Calcium Carbonate (Tums Chew Tab) 500 mg Q2HWA PRN PO 11/07/16 11:45 12/07/16 11:44 11/10/16 08:09 500 MG Miscellaneous Information (Consult Glycemic Management Pharmacy) 1 ea UD PRN N/A 11/07/16 19:45 12/07/16 19:44 Insulin Aspart (novoLOG ASPART) SLIDING SCALE ACHS SC 11/07/16 21:00 12/07/16 20:59 11/10/16 13:45 3 UNITS Docusate Sodium (coLACE CAP) 100 mg BID PRN PO 11/08/16 10:45 12/08/16 10:44 Atorvastatin Calcium (Lipitor Tab) 80 mg DAILY PO 11/09/16 09:00 12/09/16 08:59 11/10/16 08:08 80 MG Metoprolol Tartrate (Lopressor Tab) 25 mg BID PO 11/08/16 21:00 12/08/16 20:59 11/10/16 08:09 25 MG Amoxicillin (Amoxil Cap) 500 mg BIDM PO 11/08/16 17:00 11/13/16 16:59 11/10/16 08:07 500 MG Furosemide (Lasix Tab) 40 mg QAM PO 11/09/16 11:00 12/09/16 10:59 Future Hold 11/10/16 08:09 40 MG Bisacodyl (Dulcolax Tab) 10 mg BID PRN PO 11/10/16 09:15 12/10/16 09:14 11/10/16 11:14 10 MG Heparin Sodium (Porcine) 5000 unit 5,000 unit Q12 SQ 11/10/16 21:00 12/10/16 20:59 Furosemide/Syringe (Lasix Inj/ Syringe) 4 ml @ 4 mls/min TID IV 11/10/16 21:00 12/10/16 20:59 Last 24 Hours Test 11/09/16 16:30 11/09/16 20:41 11/10/16 05:53 11/10/16 11:42 Bedside Glucose 108 mg/dl 156 mg/dl 163 mg/dl White Blood Count 10.49 K/uL Red Blood Count 2.84 M/uL Hemoglobin 8.8 g/dL Hematocrit 26.3 % Mean Corpuscular Volume 92.6 fL Mean Corpuscular Hemoglobin 31.0 pg Mean Corpuscular Hemoglobin Concent 33.5 g/dl RDW Standard Deviation 50.9 fL RDW Coefficient of Variation 14.8 % Platelet Count 175 K/uL Mean Platelet Volume 9.5 fL Activated Partial Thromboplast Time 43.8 SECONDS Partial Thromboplastin Ratio 1.7 Sodium Level 131 mmol/L Potassium Level 3.7 mmol/L Chloride Level 93 mmol/L Carbon Dioxide Level 30 mmol/L Anion Gap 8.0 mmol/L Blood Urea Nitrogen 55 mg/dl Creatinine 2.10 mg/dl Est Creatinine Clear Calc Drug Dose 29.2 ml/min Estimated GFR () 31.8 Estimated GFR (Non- 27.5 BUN/Creatinine Ratio 26.2 Random Glucose 119 mg/dl Calcium Level 9.1 mg/dl Assessment & Plan [id number] possibly from combination of atn with uti and concomitant volume depletion. creatinine continues to improve. urinating well without lujan. volume status improved-no emergent indication for dialysis. will increase lasix to TID to see if continued improvement. tentative plan on d/c to [place] tomorrow. Anemia: decreased at 8.8. denies any recent bleeding or black/tarry stools. may benefit from CHACHO therapy and/or IV iron-will arrange as outpt. otherwise transfuse if hgb <8.0 This patient was seen and treated with direct collaboration with Dr. Nice. Thank you for the opportunity to participate in this patient's care. Appreciate the Consult. ATTENDING NOTE: I performed a history and physical examination of the patient, including specifically on history- pt comfortable and getting stronger. stood up today with help which is an improvement. urinating well, , on physical exam-decreased breath sounds at bases, mild edema, and my impression and plan are CKD stage 4 with creatinine in the low 2s and titrating up the lasix dose to 40mg po tid, may need procrit but would like to discuss with family before initiating. I have discussed the patient's management with Merna Baron PA-C, Please refer to above note for the documented findings and plan of care. Suri Nice DO
[2016-11-10] MEDS ORDERED: FUROSEMIDE 40 MG TAB PO SCH (21:00)
[2016-11-10] MEDS ORDERED: FUROSEMIDE INJ 40 MG in SYRINGE 0 ML IV SCH (21:00)
[2016-11-10] MEDS: HEPARIN SOD 5000 UNIT/0.5 ML CARP SQ SCH (21:33)
[2016-11-11] VITALS (7 sets, daily range): BP systolic 94–107; BP diastolic 53–62; PULSE 74–84; TEMP 36.5–36.7; O2SAT 96–100
[2016-11-11 08:05] LABS: HEMATOCRIT 27.3 % (42-52); MEAN CELL VOLUME 92.5 fL (80-100); MEAN CORPUSCULAR HEMOGLOBIN 30.2 pg (25-34); MEAN CORPUSCULAR HGB CONC 32.6 g/dl (32-36); MEAN PLATELET VOLUME 9.1 fL (7.4-10.4); PLATELET COUNT 194 K/uL (130-400); RED BLOOD COUNT 2.95 M/uL (4.7-6.1); WHITE BLOOD COUNT 9.37 K/uL (4.8-10.8)
[2016-11-11 08:10] LABS: PARTIAL THROMBOPLASTIN RATIO 1.3
[2016-11-11] MEDS: FUROSEMIDE 40 MG TAB PO SCH ×2 (08:20→14:55)
[2016-11-11] MEDS: SENNA 8.6 MG TAB PO SCH (08:20)
[2016-11-11] MEDS: CLOPIDOGREL BISULFATE 75 MG TAB PO SCH (08:21)
[2016-11-11] MEDS: DOCUSATE SODIUM 100 MG CAP PO SCH (08:21)
[2016-11-11] MEDS: RANITIDINE HCL 150 MG TAB PO SCH (08:21)
[2016-11-11] MEDS: SERTRALINE HCL 50 MG TAB PO SCH (08:21)
[2016-11-11] MEDS: ATORVASTATIN 40 MG TAB PO SCH (08:21)
[2016-11-11] MEDS: ISOSORBIDE MONONITRATE 60 MG TABCR PO SCH (08:22)
[2016-11-11] MEDS: FINASTERIDE 5 MG TAB PO SCH (08:22)
[2016-11-11] MEDS: CALCIUM CARBONATE 500 MG CHEWABLE PO PRN (08:22)
[2016-11-11] MEDS: ASPIRIN 81 MG ECTAB PO SCH (08:22)
[2016-11-11] MEDS: AMOXICILLIN 500 MG CAP PO SCH (08:22)
[2016-11-11] MEDS: METOPROLOL TARTRATE 25 MG TAB PO SCH (08:23)
[2016-11-11] MEDS: INSULIN ASPART 100 UNITS/ML 3 ML PEN SC SCH ×2 (08:28→11:00)
[2016-11-11] MEDS: HEPARIN SOD 5000 UNIT/0.5 ML CARP SQ SCH (08:29)
[2016-11-11 08:31] LABS: BUN/CREATININE RATIO 29.3 (10-20); POTASSIUM 3.7 mmol/L (3.5-5.1)
--- NOTE | 2016-11-11 08:39 | Cardiology Follow-Up ---
Subjective Subjective Date of Service: November 11, 2016. Pt evaluation today including: conversation w/ patient, physical exam, chart review, lab review, review of studies, review of inpatient medication list Additional Details: Pt seen and examined, states that he feels fine. Denies cp, sob, palpitations, lightheadedness or dizziness. Tele reviewed: sinus rhythm with rare ectopy, no arrhythmias. Problem List Medical Problems: (1) Acute renal failure Status: Acute (2) Altered mental status Status: Acute (3) Generalized weakness Status: Acute (4) Hyperkalemia Status: Acute (5) Hypoglycemia Status: Acute (6) Swelling of left lower extremity Status: Acute (7) Urinary tract infection Status: Acute Review of Systems Constitutional: + weakness ENT: + hearing loss (normal for patient) Respiratory: + dyspnea on exertion, No cough, No dyspnea at rest Cardiac: + edema, No chest pain Abdomen: + problem reported (no BM two days), No nausea, No pain, No vomiting Musculoskeletal: + joint pain, + muscle pain Male : No problem reported Neurologic: + weakness Psychiatric: No anxiety, No depression symptoms Objective Vital Signs Last Vital Signs Documentation Date Time Temp Pulse Resp B/P Pulse Ox O2 Delivery O2 Flow Rate FiO2 11/11/16 07:55 36.7 84 19 94/53 97 Nasal Cannula 2.0 Physical Exam: General Appearance: no apparent distress, + obese, + pertinent finding (very hard of hearing, does not have hearing aides with him) Eyes: bilateral eyes EOMI, bilateral eyes PERRL, bilateral eyes normal inspection ENT: normal ENT inspection, hearing grossly normal, pharynx normal, + pertinent finding (hard of hearing) Neck: supple, no adenopathy, no JVD Respiratory/Chest: lungs clear, no respiratory distress, no accessory muscle use, + decreased breath sounds (bilateral bases) Cardiovascular: + irregularly irregular Abdomen: normal bowel sounds, non tender, soft, no organomegaly, no pulsatile mass Extremities: normal inspection, no pedal edema, no calf tenderness Neurologic/Psychiatric: addiction treatment counselor II-XII nml as tested, no motor/sensory deficits, alert, normal mood/affect, oriented x 3 Skin: normal color, warm/dry, no rash Lymphatic: no adenopathy Assessment and Plan 1. frequent PAC's resolved 2. indigestion resolved 3. NSTEMI asymptomatic new wall motion abnormality on echo involving anterolateral wall given his renal function and lack of symptoms believe medical management is the most prudent course of action, which was also recommended in October of 2015 patient agreeable heparin d/c'ed after 48 hours cont asa, plavix, metoprolol, imdur and atorvastatin ok to d/c to rehab from cardiac standpoint
[2016-11-11] MEDS: BISACODYL 5 MG TABEC PO PRN (08:41)
[2016-11-11 08:59] LABS: CALCIUM 9.3 mg/dl (8.5-10.1)
--- NOTE | 2016-11-11 09:07 | Nephrology Progress Note ---
Nephrology Progress Note Date of Service: November 11, 2016. Subjective 85 yo male with ckd stage 4 with baseline creatinine in the 2s who presented with enterococcus uti, neil and hyperkalemia. Patient is seated in bed eating breakfast. Still with eating issues due to tremors-will contact [employer] for weighted spoon. tolerating lasix and urinating without lujan. chronic O2 and denies any SOB, chest pain, or nausea. Objective Date Time Temp Pulse Resp B/P Pulse Ox O2 Delivery O2 Flow Rate FiO2 11/11/16 08:00 Nasal Cannula 2.0 11/11/16 07:55 36.7 84 19 94/53 97 Nasal Cannula 2.0 11/11/16 04:05 36.5 74 18 107/60 96 BiPAP 2.0 11/11/16 04:00 97 Nasal Cannula 2.0 BiPAP 11/11/16 00:06 97 Nasal Cannula 2.0 BiPAP 11/10/16 23:10 36.4 74 18 100/58 97 BiPAP 2.0 11/10/16 20:26 36.7 82 16 102/65 97 Nasal Cannula 2.0 11/10/16 20:00 Nasal Cannula 2.0 11/10/16 19:07 37.0 83 20 105/64 94 Nasal Cannula 2.0 11/10/16 16:00 Nasal Cannula 2.0 11/10/16 15:25 36.5 72 20 107/61 97 Nasal Cannula 2.0 11/10/16 12:00 Nasal Cannula 2.0 11/10/16 11:12 36.9 71 18 103/68 97 Nasal Cannula 2.0 Physical Exam: General-AAOX3, hard of hearing Eyes-no scleral icterus ENT-mmm Neck-supple Lungs-decreased at bases Heart-2/6 systolic murmur Abdomen-bs+ s/nt/nd Extremities-+1 edema Neuro-tremors and generalized weakness Current Inpatient Medications Medications (Trade) Dose Ordered Sig/Vijay Route Start Time Stop Time Status Last Admin Dose Admin Acetaminophen (Tylenol Tab) 650 mg Q4H PRN PO 11/03/16 19:00 12/03/16 18:59 11/07/16 19:49 650 MG Ondansetron HCl (Zofran Inj) 4 mg Q6H PRN IV 11/03/16 19:00 6/10/17 18:59 11/07/16 10:36 4 MG Aspirin (Ecotrin Tab) 81 mg QAM PO 11/04/16 09:00 12/04/16 08:59 11/11/16 08:22 81 MG Clopidogrel Bisulfate (plAVix TAB) 75 mg QAM PO 11/04/16 09:00 12/04/16 08:59 11/11/16 08:21 75 MG Docusate Sodium (coLACE CAP) 100 mg BID PO 11/03/16 21:00 12/03/16 20:59 11/11/16 08:21 100 MG Finasteride (Proscar Tab) 5 mg QAM PO 11/04/16 09:00 12/04/16 08:59 11/11/16 08:22 5 MG Albuterol/ Ipratropium (Duoneb) 3 ml Q6 PRN INH 11/03/16 19:00 12/03/16 18:59 Isosorbide Mononitrate (Imdur Ext Rel Tab) 60 mg QAM PO 11/04/16 09:00 12/04/16 08:59 11/11/16 08:22 60 MG Senna (Senokot Tab) 8.6 mg QAM PO 11/04/16 09:00 12/04/16 08:59 11/11/16 08:20 8.6 MG Sertraline HCl (Zoloft Tab) 50 mg QAM PO 11/04/16 09:00 12/04/16 08:59 11/11/16 08:21 50 MG Triamcinolone Acetonide (Kenalog 0.1% Cream) 1 appln BID PRN EXT 11/03/16 19:00 12/03/16 18:59 Polyethylene (Miralax Powder Packet) 17 gm DAILY PRN PO 11/03/16 19:30 12/03/16 19:29 11/09/16 08:14 17 GM Glucose (Glucose 40% Gel) 15-30 GRAMS 15 GRAMS... UD PRN PO 11/03/16 21:15 12/03/16 21:14 Glucose (Glucose Chew Tab) 4-8 Tablets 4 Tabl... UD PRN PO 11/03/16 21:15 12/03/16 21:14 Dextrose (Dextrose 50% 50ML Syringe) 25-50ML OF 50% DW IV FOR... UD PRN IV 11/03/16 21:15 12/03/16 21:14 11/04/16 04:25 25 ML Glucagon (Glucagon Inj) 1 mg UD PRN SQ 11/03/16 21:15 12/03/16 21:14 Ranitidine HCl (zANTac TAB) 150 mg DAILY PO 11/08/16 09:00 12/08/16 08:59 11/11/16 08:21 150 MG Calcium Carbonate (Tums Chew Tab) 500 mg Q2HWA PRN PO 11/07/16 11:45 12/07/16 11:44 11/11/16 08:22 500 MG Miscellaneous Information (Consult Glycemic Management Pharmacy) 1 ea UD PRN N/A 11/07/16 19:45 12/07/16 19:44 Insulin Aspart (novoLOG ASPART) SLIDING SCALE ACHS SC 11/07/16 21:00 12/07/16 20:59 11/11/16 08:28 1 UNITS Docusate Sodium (coLACE CAP) 100 mg BID PRN PO 11/08/16 10:45 12/08/16 10:44 Atorvastatin Calcium (Lipitor Tab) 80 mg DAILY PO 11/09/16 09:00 12/09/16 08:59 11/11/16 08:21 80 MG Metoprolol Tartrate (Lopressor Tab) 25 mg BID PO 11/08/16 21:00 12/08/16 20:59 11/10/16 21:28 25 MG Amoxicillin (Amoxil Cap) 500 mg BIDM PO 11/08/16 17:00 11/13/16 16:59 11/11/16 08:22 500 MG Bisacodyl (Dulcolax Tab) 10 mg BID PRN PO 11/10/16 09:15 12/10/16 09:14 11/11/16 08:41 10 MG Heparin Sodium (Porcine) (Heparin Sq 5000 Unit/0.5ml) 5,000 unit Q12 SQ 11/10/16 21:00 12/10/16 20:59 11/11/16 08:29 5,000 UNIT Furosemide (Lasix Tab) 40 mg TID PO 11/10/16 21:00 12/10/16 20:59 11/11/16 08:20 40 MG Last 24 Hours Test 11/10/16 11:42 11/10/16 16:18 11/10/16 20:32 11/11/16 07:21 Bedside Glucose 163 mg/dl 119 mg/dl 114 mg/dl White Blood Count 9.37 K/uL Red Blood Count 2.95 M/uL Hemoglobin 8.9 g/dL Hematocrit 27.3 % Mean Corpuscular Volume 92.5 fL Mean Corpuscular Hemoglobin 30.2 pg Mean Corpuscular Hemoglobin Concent 32.6 g/dl RDW Standard Deviation 51.3 fL RDW Coefficient of Variation 15.0 % Platelet Count 194 K/uL Mean Platelet Volume 9.1 fL Activated Partial Thromboplast Time 33.3 SECONDS Partial Thromboplastin Ratio 1.3 Sodium Level 129 mmol/L Potassium Level 3.7 mmol/L Chloride Level 91 mmol/L Carbon Dioxide Level 28 mmol/L Anion Gap 10.0 mmol/L Blood Urea Nitrogen 59 mg/dl Creatinine 2.00 mg/dl Est Creatinine Clear Calc Drug Dose 30.5 ml/min Estimated GFR () 33.8 Estimated GFR (Non- 29.1 BUN/Creatinine Ratio 29.3 Random Glucose 105 mg/dl Calcium Level 9.3 mg/dl Assessment & Plan [id number]-[id number] possibly from combination of atn with uti and concomitant volume depletion. creatinine continues to improve. urinating well without lujan. volume status improved-no emergent indication for dialysis. will continue to monitor lasix dosing. ok to d/c from renal standpoint. Anemia: stable at 8.9. denies any recent bleeding or black/tarry stools. will arrange for IV iron or procrit as outpt. otherwise transfuse if hgb <8.0 This patient was seen and treated with direct collaboration with Dr. Nice. Thank you for the opportunity to participate in this patient's care. Appreciate the Consult. ATTENDING NOTE: I performed a history and physical examination of the patient, including specifically on history- pt oob to chair, urinating well, no sob,on physical exam-decreased at bases, +1 edema in legs, and my impression and plan are ckd stage 4-currently on lower dose of lasix compared to outpt dosing and will need titrated up as outpt. for now 40 po tid but will likely need 80 tid soon as an outpt. was on 120 tid prior to coming in to hospital. I have discussed the patient's management with Merna Baron PA-C, Please refer to above note for the documented findings and plan of care. Suri Oncu DO
--- NOTE | 2016-11-11 09:12 | Progress Note ---
Internal Med Progress Note Date of Service: November 11, 2016. Provider Documentation: SUBJECTIVE: Patient is feeling better. Wants to ambulate. Generalized weakness + but improved. No chest pain, fever, chills, nausea, vomiting, abdominal pain. On 2 L oxygen as at home OBJECTIVE: Vital Signs-as noted below Exam: General Appearance:Moderately built and nourished, no apparent distress, + Tremor Neck: supple Respiratory/Chest: Decreased breath sounds bilaterally, no wheezing, rhonchi Cardiovascular: S1, S2, + systolic murmur Abdomen/GI:Soft, Non tender, Bowel sounds present Extremities/Musculoskelatal: Normal inspection, Trace edema Neurologic/Psych:AAOX3, grossly no focal neurological deficits ; Tremors + Lab data as noted below. ASSESSMENT & PLAN: ASSESSMENT & PLAN : NSTEMI : Patient had atypical chest pain vs epigastric pain on 11/08/16, trops were drawn - 0.105 - > 1.480 --> 6.180 --> 8.910 -Denied any cardiac symptoms -EKG- QTC prolonged- down to 487, Non specific ST/T changes, compared to prior EKG -S/P IV Heparin x 48 hours -Continue with ASA 81 mg, Plavix 75 mg daily, Imdur 60 mg, Carvedilol 3.125 mg PO BID --> Changed to Lopressor 25 mg PO BID. Started Atorvastatin 80 mg (LDL 182) -Managed conservatively due to CKD-IV- no further cardiac intervention per cardiology. Discussed with son as well- agreeable with the plan. 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 Lasix restarted at a lower dose 40 mg TID (at home 120 mg TID) on 11/09/16 per nephrology. Will titrate it outpatient according to volume status. -Appreciate Nephrology input -Work up - Renal USD : Unremarkable PVCs : ? Afib, but per cardiology most likely PACs, not Atrial fibrillation -Monitor electrolytes/Telemetry HYPERKALEMIA: Resolved Secondary to ARF and chronic potassium supplements -Received calcium gluconate, dextrose and insulin, bicarbonate HYPOGLYCEMIA: Resolved H/O DM II, Patient on glipizide -Hold all diabetic meds for now -Hypoglycemia protocol, ISS HYPONATREMIA, HYPERVOLEMIC: -Continue Fluid restriction: 1.8 litres per day -On lasix -Nephrology on board. -Monitor BMP closely outpatient CAD S/P CABG and stent placement: -Continue ASA, Plavix, Coreg--> Changed to lopressor 25 mg PO BID per cardiology , Imdur -Discontinue CHARO due to ALIDA/CKD H/O systolic CHF: Last EF:40-45% -Held diuretics initially--> Re started at a lower dose 40 mg daily on 11/09/16-- > TID on 11/10/16 UTI: Urine culture:Enterococcus fecalis ? Contamination S/P IV Rocephin x 5 days ---> Changed to Amoxicillin PO BID On 11/08/16 per c/s results (Day 09/28) -Blood Cultures: Negative CHRONIC HYPOXIC RESP FAILURE -On Oxygen 2-4 L per patient day time and also on CPAP night time -Continue with oxygen SLEEP APNEA: -Continue CPAP HYPERTENSION: BP tends to run on lower side. -Lisinopril on hold and will be discontinued on discharge due to ALIDA/CKD. Lopressor started -Monitor H/O PARKINSONISM ESSENTIAL TREMOR Not on any meds Appreciate Neurology input- per them tremor is more likely essential than of parkinsons Needs follow up with Neurology as outpatient CONSTIPATION -Laxatives added. Per records, had a BM day before, but per patient has not had one -Will continue with colace, miralex, dulcolax PRN GI Px: -Protonix PO DVT Px: Heparin IV--> Changed to Heparin SQ Code Status: DNR/DNI POLST Form filled out on 11/08/16 (updated from prior one as it said comfort measures only which patient claims he never agreed to) and in his chart - per patient/son--> DNR/DNI DISPOSITION PT/OT - recommends rehab. Trish Cleared for discharge by Nephrology/Cardiology Monitor closely outpatient- BMP to be drawn on Monday11/14/16 Vital Signs: Date Time Temp Pulse Resp B/P Pulse Ox O2 Delivery O2 Flow Rate FiO2 11/11/16 08:00 Nasal Cannula 2.0 11/11/16 07:55 36.7 84 19 94/53 97 Nasal Cannula 2.0 11/11/16 04:05 36.5 74 18 107/60 96 BiPAP 2.0 11/11/16 04:00 97 Nasal Cannula 2.0 BiPAP 11/11/16 00:06 97 Nasal Cannula 2.0 BiPAP 11/10/16 23:10 36.4 74 18 100/58 97 BiPAP 2.0 11/10/16 20:26 36.7 82 16 102/65 97 Nasal Cannula 2.0 11/10/16 20:00 Nasal Cannula 2.0 11/10/16 19:07 37.0 83 20 105/64 94 Nasal Cannula 2.0 11/10/16 16:00 Nasal Cannula 2.0 11/10/16 15:25 36.5 72 20 107/61 97 Nasal Cannula 2.0 11/10/16 12:00 Nasal Cannula 2.0 11/10/16 11:12 36.9 71 18 103/68 97 Nasal Cannula 2.0 Lab Results: Results Past 24 Hours Test 11/10/16 11:42 11/10/16 16:18 11/10/16 20:32 11/11/16 07:21 Range/Units Bedside Glucose 163 119 114 70-99 mg/dl White Blood Count 9.37 4.8-10.8 K/uL Red Blood Count 2.95 4.7-6.1 M/uL Hemoglobin 8.9 14.0-18.0 g/dL Hematocrit 27.3 42-52 % Mean Corpuscular Volume 92.5 80-100 fL Mean Corpuscular Hemoglobin 30.2 25-34 pg Mean Corpuscular Hemoglobin Concent 32.6 32-36 g/dl RDW Standard Deviation 51.3 36.4-46.3 fL RDW Coefficient of Variation 15.0 11.5-14.5 % Platelet Count 194 130-400 K/uL Mean Platelet Volume 9.1 7.4-10.4 fL Activated Partial Thromboplast Time 33.3 21.0-31.0 SECONDS Partial Thromboplastin Ratio 1.3 Sodium Level 129 136-145 mmol/L Potassium Level 3.7 3.5-5.1 mmol/L Chloride Level 91 98-107 mmol/L Carbon Dioxide Level 28 21-32 mmol/L Anion Gap 10.0 3-11 mmol/L Blood Urea Nitrogen 59 7-18 mg/dl Creatinine 2.00 0.60-1.40 mg/dl Est Creatinine Clear Calc Drug Dose 30.5 ml/min Estimated GFR () 33.8 Estimated GFR (Non- 29.1 BUN/Creatinine Ratio 29.3 10-20 Random Glucose 105 70-99 mg/dl Calcium Level 9.3 8.5-10.1 mg/dl Test 11/11/16 07:47 Range/Units Bedside Glucose 126 70-99 mg/dl
[2016-11-11] MEDS ORDERED: FRS/40 PO (09:15)
[2016-11-11] MEDS ORDERED: LPR25 PO (09:15)
[2016-11-11] MEDS ORDERED: AMX500 PO (09:15)
[2016-11-11] MEDS ORDERED: LPT40 PO (09:15)
--- NOTE | 2016-11-11 09:24 | Discharge Instructions ---
Discharge Instructions Date of Service November 11, 2016. Admission Reason for Admission: Alberto, Hyperkalemia, Hyperglycemia Discharge Discharge Diagnosis / Problem: 1. ALBERTO ON CKD IV 2.NSTEMI 3. UTI 4. Physical deconditioning Discharge Goals Goal(s): Decrease discomfort, Improve function Activity Recommendations Activity Limitations: per Instructions/Follow-up section (PT/OT recommended; Assistive device- walker required) . Instructions / Follow-Up Instructions / Follow-Up MEDICATION CHANGES: 1. Lasix decreased to 40 mg TID from 120 mg TID per nephrology. Will need to be re adjusted outpatient depending on volume status 2. Discontinued Coreg and started on lopressor 25 mg PO BID for greater beta blockage effect due to NSTEMI 3. New medication: Atorvastatin 80 mg daily started to bring LDL to goal < 70 for new NSTEMI 4. New medication:Amoxicillin BID x 2 more days to complete 5 day course of UTI , Enterococcus Fecalis 5. Discontinued Lisinopril due to CKD/ALBERTO 6. Decreased Januvia to 25 mg daily from 50 mg daily due to CKD 7. Discontinued Glucotrol due to hypoglycemia MONITOR: -BP with changes in medications. Tends to run low -BMP- Monitor Na, Creatinine, K levels -Blood glucose levels as had hypoglycemia while in hospital and discontinued Glucotrol and decreased Januvia dosing per creatinine clearance, OXYGEN/CPAP Continue on 2 L day time and on CPAP at night time -PT/OT recommended FOLLOW UP 1. Follow up with PCP in 1 week 2. Follow up with nephrology per schedule Current Hospital Diet Patient's current hospital diet: Diabetes Type 2 Diet, Renal Diet Discharge Diet Recommended Diet: Diabetes Type 2 Diet Fluid Restriction: 1800 ml (7 cups) Pending Studies Studies pending at discharge: no Laboratory Results Lipid Panel Test 11/09/16 06:48 Range/Units Triglycerides Level 156 H 0-150 mg/dl Cholesterol Level 262 H 0-200 mg/dl HDL Cholesterol 49 mg/dl Cholesterol/HDL Ratio 5.3 LDL Cholesterol, Calculated 182 mg/dl Medical Emergencies . Who to Call and When: Medical Emergencies: If at any time you feel your situation is an emergency, please call 911 immediately. . Non-Emergent Contact Non-Emergency issues call your: Primary Care Provider . . "Provider Documentation" section prepared by Mary An. . VTE Core Measure Inpt VTE Proph given/why not?: Unfractionated heparin SQ, Other Anticoagulation (IV heparin followed by SQ)
--- NOTE | 2016-11-11 09:32 | Discharge Summary ---
Discharge Summary Date of Service November 11, 2016. Discharge Summary Admission Date: November 03, 2016 at 18:52 Discharge Date: November 11, 2016 Discharge Disposition: [facility] facility ([facility] with PT/OT) Principal Diagnosis: 1. 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 NSTEMI 3. Hyperkalemia 4. Hyponatremia, hyper volemic 4. Hypoglycemia with hx of DM 5. PVCs 6. UTI, Enterococcus Fecalis 7. Physical deconditioning 8. Chronic hypoxic respiratory failure Secondary Diagnoses/Problems: 1. Chronic Systolic CHF 2. Hypertension 3. Hx of CAD s/p CABG 4. FILIBERTO 5. Constipation 6. Anemia of CKD Pending Studies/Follow-Up: Instructions / Follow-Up Instructions / Follow-Up MEDICATION CHANGES: 1. Lasix decreased to 40 mg TID from 120 mg TID per nephrology. Will need to be re adjusted outpatient depending on volume status 2. Discontinued Coreg and started on lopressor 25 mg PO BID for greater beta blockage effect due to NSTEMI 3. New medication: Atorvastatin 80 mg daily started to bring LDL to goal < 70 for new NSTEMI 4. New medication:Amoxicillin BID x 2 more days to complete 5 day course of UTI , Enterococcus Fecalis 5. Discontinued Lisinopril due to CKD/ALIDA 6. Decreased Januvia to 25 mg daily from 50 mg daily due to CKD 7. Discontinued Glucotrol due to hypoglycemia MONITOR: -BP with changes in medications. Tends to run low -BMP- Monitor Na, Creatinine, K levels -Blood glucose levels as had hypoglycemia while in hospital and discontinued Glucotrol and decreased Januvia dosing per creatinine clearance, OXYGEN/CPAP Continue on 2 L day time and on CPAP at night time -PT/OT recommended FOLLOW UP 1. Follow up with PCP in 1 week 2. Follow up with nephrology per schedule Medication Reconciliation New Medications: Amoxicillin (Amoxicillin) 500 Mg Cap 500 MG PO BIDM for 2 Days, CAP Atorvastatin (Atorvastatin Calcium) 40 Mg Tab 80 MG PO DAILY for 30 Days, #60 TAB Metoprolol Tartrate (Lopressor) 25 Mg Tab 25 MG PO BID for 30 Days, #60 TAB Changed Medications: Furosemide (Lasix) 40 Mg Tab 40 MG PO TID for 30 Days, #90 TAB (Changed from: 120 MG) Continued Medications: Allopurinol (Zyloprim) 300 Mg Tab 300 MG PO QAM, TAB Aspirin (Aspirin Ec) 81 Mg Tab 81 MG PO QAM Clopidogrel (Plavix) 75 Mg Tab 75 MG PO QAM, TAB Docusate Sodium (Docusate Sodium) 100 Mg Cap 1 CAP PO BID for 7 Days Finasteride (Proscar) 5 Mg Tab 5 MG PO QAM, TAB Ipratropium-Albuterol (Duoneb) 3 Ml Nebu 1 TREATMENT INH Q6 PRN for SOB/Wheezing, INHA Isosorbide Mononitrate Ext Rel (Imdur Ext Rel) 60 Mg Ertab 60 MG PO QAM, TAB Polyethylene Glycol 3350 (Miralax) 1 Pow Pow 17 GM PO QAM PRN for Constipation, #255 GM Potassium Ext Rel (Klor-Con) 20 Meq Tabcr 40 MEQ PO TID, TAB TAKE EXTRA 40 MEQ ON MON & FRI. Senna (Senna Lax) 8.6 Mg Tab 8.6 MG PO QAM Sertraline (Zoloft) 50 Mg Tab 50 MG PO QAM, TAB Sitagliptin (Januvia) 25 Mg Tab 25 MG PO DAILY, TAB Triamcinolone Acet (Aristocort 0.1%) 240 Appln/80 Gm Cr 1 APPLN TOP BID PRN for Affected Skin Folds Discontinued Medications: Carvedilol (Coreg) 3.125 Mg Tab 3.125 MG PO BID, TAB Lisinopril (Lisinopril) 2.5 Mg Tab 2.5 MG PO QAM Metolazone (Zaroxolyn) 2.5 Mg Tab 2.5 MG PO 2XWK, TAB TAKES MON & FRI, 30 MINUTES PRIOR TO LASIX. Hospital Course ASSESSMENT & PLAN : NSTEMI : Patient had atypical chest pain vs epigastric pain on 11/08/16, trops were drawn - 0.105 - > 1.480 --> 6.180 --> 8.910 -Denied any cardiac symptoms -EKG- QTC prolonged- down to 487, Non specific ST/T changes, compared to prior EKG -S/P IV Heparin x 48 hours -Continue with ASA 81 mg, Plavix 75 mg daily, Imdur 60 mg, Carvedilol 3.125 mg PO BID --> Changed to Lopressor 25 mg PO BID. Started Atorvastatin 80 mg (LDL 182) -Managed conservatively due to CKD-IV- no further cardiac intervention per cardiology. Discussed with son as well- agreeable with the plan. 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 Lasix restarted at a lower dose 40 mg TID (at home 120 mg TID) on 11/09/16 per nephrology. Will titrate it outpatient according to volume status. -Appreciate Nephrology input -Work up - Renal USD : Unremarkable PVCs : ? Afib, but per cardiology most likely PACs, not Atrial fibrillation -Monitor electrolytes/Telemetry HYPERKALEMIA: Resolved Secondary to ARF and chronic potassium supplements -Received calcium gluconate, dextrose and insulin, bicarbonate HYPOGLYCEMIA: Resolved H/O DM II, Patient on glipizide -Discontinued Glucotrol due to hypoglycemia and decreased Januvia to 25 mg per creatinine clearance -Hypoglycemia protocol, ISS HYPONATREMIA, HYPERVOLEMIC: -Continue Fluid restriction: 1.8 litres per day -On lasix -Nephrology on board. -Monitor BMP closely outpatient UTI: Urine culture:Enterococcus fecalis ? Contamination S/P IV Rocephin x 5 days ---> Changed to Amoxicillin PO BID On 11/08/16 per c/s results (Day 45) -Blood Cultures: Negative CAD S/P CABG and stent placement: -Continue ASA, Plavix, Coreg--> Changed to lopressor 25 mg PO BID per cardiology , Imdur -Discontinue CHARO due to ALIDA/CKD ANEMIA OF CHRONIC KIDNEY DISEASE -Stable with no active bleeding -Had 2 episodes with mild bleeding in mucus when was on IV Heparin along with ASA, Plavix because of NSTEMI. But not a significant bleed and Hb remained stable -Procrit being considered for outpatient per nephrology. Yet to have a discussion with family -Monitor outpatient and f/up with nephrology H/O systolic CHF: Last EF:40-45% -Held diuretics initially--> Re started at a lower dose 40 mg daily on 11/09/16-- > TID on 11/10/16 -Continue with lopressor. Not on ACEI due to CKD-IV CHRONIC HYPOXIC RESP FAILURE -On Oxygen 2-4 L per patient day time and also on CPAP night time -Continue with oxygen SLEEP APNEA: -Continue CPAP HYPERTENSION: BP tends to run on lower side. -Lisinopril on hold and will be discontinued on discharge due to ALIDA/CKD. Lopressor started -Monitor H/O PARKINSONISM ESSENTIAL TREMOR Not on any meds Appreciate Neurology input- per them tremor is more likely essential than of parkinsons Needs follow up with Neurology as outpatient CONSTIPATION -Laxatives added. Per records, had a BM day before, but per patient has not had one -Will continue with colace, miralex, dulcolax PRN GI Px: -Protonix PO DVT Px: Heparin IV--> Changed to Heparin SQ Code Status: DNR/DNI POLST Form filled out on 11/08/16 (updated from prior one as it said comfort measures only which patient claims he never agreed to) and in his chart - per patient/son--> DNR/DNI DISPOSITION PT/OT - recommends rehab. Trish Cleared for discharge by Nephrology/Cardiology Monitor closely outpatient- BMP to be drawn on Monday11/14/16 Total time spent on discharge = 45 minutes This includes examination of the patient, discharge planning, medication reconciliation, and communication with other providers. Discharge Instructions Discharge Goals Goal(s): Decrease discomfort, Improve function Activity Recommendations Activity Limitations: per Instructions/Follow-up section (PT/OT recommended; Assistive device- walker required) . Instructions / Follow-Up Instructions / Follow-Up MEDICATION CHANGES: 1. Lasix decreased to 40 mg TID from 120 mg TID per nephrology. Will need to be re adjusted outpatient depending on volume status 2. Discontinued Coreg and started on lopressor 25 mg PO BID for greater beta blockage effect due to NSTEMI 3. New medication: Atorvastatin 80 mg daily started to bring LDL to goal < 70 for new NSTEMI 4. New medication:Amoxicillin BID x 2 more days to complete 5 day course of UTI , Enterococcus Fecalis 5. Discontinued Lisinopril due to CKD/ALIDA 6. Decreased Januvia to 25 mg daily from 50 mg daily due to CKD 7. Discontinued Glucotrol due to hypoglycemia MONITOR: -BP with changes in medications. Tends to run low -BMP- Monitor Na, Creatinine, K levels -Blood glucose levels as had hypoglycemia while in hospital and discontinued Glucotrol and decreased Januvia dosing per creatinine clearance, OXYGEN/CPAP Continue on 2 L day time and on CPAP at night time -PT/OT recommended FOLLOW UP 1. Follow up with PCP in 1 week 2. Follow up with nephrology per schedule Current Hospital Diet Patient's current hospital diet: Diabetes Type 2 Diet, Renal Diet Discharge Diet Recommended Diet: Diabetes Type 2 Diet Fluid Restriction: 1800 ml (7 cups) Pending Studies Studies pending at discharge: no Laboratory Results Lipid Panel Test 11/09/16 06:48 Range/Units Triglycerides Level 156 H 0-150 mg/dl Cholesterol Level 262 H 0-200 mg/dl HDL Cholesterol 49 mg/dl Cholesterol/HDL Ratio 5.3 LDL Cholesterol, Calculated 182 mg/dl Medical Emergencies . Who to Call and When: Medical Emergencies: If at any time you feel your situation is an emergency, please call 911 immediately. . Non-Emergent Contact Non-Emergency issues call your: Primary Care Provider . . "Provider Documentation" section prepared by Mary An. . VTE Core Measure Inpt VTE Proph given/why not?: Unfractionated heparin SQ, Other Anticoagulation (IV heparin followed by SQ)
== END 2016-11-11 16:40 | DRG 682 ==
LOC: ENRESERVTM → ENRESERVDT → EDBD 14:57 → C.EDB 14:58 → C.2T 18:52 → UNDOADMIN 18:52 → C.2T 11-04 00:14 → C.MSICU 11-04 00:14 → C.MS2W 11-05 10:36 → C.MED 11-07 10:59 → C.MS2W 11-07 10:59
PROVIDERS: ADMIT Internal Medicine; ATTEND Internal Medicine
DX: N17.9 Acute kidney failure, unspecified (principal); I21.4 Non-ST elevation (NSTEMI) myocardial infarction; E87.1 Hypo-osmolality and hyponatremia; N30.00 Acute cystitis without hematuria; Z66 Do not resuscitate; N18.4 Chronic kidney disease, stage 4 (severe); E78.5 Hyperlipidemia, unspecified; I12.9 Hypertensive chronic kidney disease with stage 1 through stage 4 chronic kidney disease, or unspecified chronic kidney disease; E87.5 Hyperkalemia; J45.909 Unspecified asthma, uncomplicated; E11.649 Type 2 diabetes mellitus with hypoglycemia without coma; G47.33 Obstructive sleep apnea (adult) (pediatric); Z95.5 Presence of coronary angioplasty implant and graft; I25.10 Atherosclerotic heart disease of native coronary artery without angina pectoris; I95.9 Hypotension, unspecified; T50.2X5A Adverse effect of carbonic-anhydrase inhibitors, benzothiadiazides and other diuretics, initial encounter; B95.2 Enterococcus as the cause of diseases classified elsewhere; Z79.82 Long term (current) use of aspirin; I25.2 Old myocardial infarction

== ENCOUNTER 2016-11-20 21:53 | Inpatient (IN) | payer MEDICARE, OTHER ==
[~2016-11-20] VITALS: Ht 172.7 cm; Wt 100.2 kg
[~2016-11-20 21:53] MED LIST changes: +AMX500 PO; -CARV3.122 PO; -GLIP-199 PO; -INSDGI SQ; +LPR25 PO; +LPT40 PO; -NVLGI/PEN SQ; +SITA25TA PO; -SITA50TA3 PO; +SNK PO; +TRMCR180 TOP
[2016-11-20 22:15] VITALS: PULSE 104; O2SAT 95
[2016-11-20] MEDS ORDERED: FUROSEMIDE 40 MG/4 ML VIAL IV STA (22:29)
[2016-11-20 22:31] LABS: VEN BLOOD GAS BASE EXCESS -3.9 mmol/L; VENOUS BLOOD GAS PCO2 49 mmHg (38.0-50.0); VENOUS BLOOD GAS PO2 34 mmHg
[2016-11-20 22:32] LABS: HEMATOCRIT 31.3 % (42-52); MEAN CELL VOLUME 94.8 fL (80-100); MEAN CORPUSCULAR HEMOGLOBIN 29.7 pg (25-34); MEAN CORPUSCULAR HGB CONC 31.3 g/dl (32-36); MEAN PLATELET VOLUME 8.8 fL (7.4-10.4); PLATELET COUNT 475 K/uL (130-400); WHITE BLOOD COUNT 18.01 K/uL (4.8-10.8)
[2016-11-20 22:32] LABS: VEN BLD GAS O2 SATURATION < 60.0 %
[2016-11-20] MEDS ORDERED: PIPERACILLIN/TAZOBACTAM 4.5 GM/100ML D5W IV STA (22:33)
--- NOTE | 2016-11-20 22:34 | EMERGENCY ROOM VISIT NOTE ---
ED Visit Note First contact with patient: 22:02 I did evaluate and examine this patient myself. I did guide management for the patient. I agree with the APC's assessment as discussed. Please see the APC's dictation for further details. I did independently review the chest x-ray, 12- lead EKG and blood work. The patient was placed on BiPAP. He will be admitted to the ICU.
--- NOTE | 2016-11-20 22:41 | DIAGNOSTIC IMAGING REPORT ---
CHEST ONE VIEW PORTABLE HISTORY: Atypical CHEST PAIN COMPARISON: Chest 11/04/2016. FINDINGS: Poststernotomy changes. The heart is mildly enlarged. Right greater the left interstitial thickening and patchy airspace opacities. Small bilateral pleural effusions. No pneumothorax. IMPRESSION: Cardiomegaly with right greater than left interstitial thickening and patchy airspace opacities. There are small bilateral pleural effusions. Findings are consistent with severe pulmonary edema. Electronically signed by: Alan Jones M.D. 11/20/2016 10:40 PM Dictated Date/Time: 11/20/2016 10:39 PM
[2016-11-20 22:44] LABS: ISTAT CREATININE 1.9 mg/dl (0.6-1.3); ISTAT HEMOGLOBIN 11.6 g/dl (14.0-18.0); ISTAT IONIZED CALCIUM 1.01 mmol/l (1.12-1.32)
[2016-11-20] MEDS ORDERED: LEVAQUIN 750MG / 150ML D5W IV ONE (22:45)
[2016-11-20 22:55] LABS: ALT/SGPT 50 U/L (12-78); AST/SGOT 64 U/L (15-37); BLOOD UREA NITROGEN 55 mg/dl (7-18); BUN/CREATININE RATIO 26.4 (10-20); CALCIUM 8.4 mg/dl (8.5-10.1); CARBON DIOXIDE 24 mmol/L (21-32); CHLORIDE 99 mmol/L (98-107); GLUCOSE 208 mg/dl (70-99); MAGNESIUM 2.6 mg/dl (1.8-2.4); POTASSIUM 5.2 mmol/L (3.5-5.1); SODIUM 135 mmol/L (136-145)
[2016-11-20 23:01] LABS: BASO % 0.4 %; BASO ABS # 0.07 K/uL (0-0.2); COMPLETE YES; EOS % 0.8 %; IG% 0.7 %; LYMPH % 6.7 %; MONO % 6.5 %; NEUT % 84.9 %
[2016-11-20] MEDS ORDERED: ACETAMINOPHEN 650 MG SUPP PR STA (23:03)
[2016-11-20 23:23] LABS: ALKALINE PHOSPHATASE 175 U/L (45-117); CKMB/CK RATIO 4.4 (0-3.0)
[2016-11-20 23:39] LABS: URINE APPEARANCE CLEAR (CLEAR); URINE BILIRUBIN NEG (NEG); URINE COLOR YELLOW; URINE EPITHELIAL CELL AUTO >30 /lpf (0-5); URINE NITRITE NEG (NEG); URINE SPECIFIC GRAVITY 1.016 (1.000-1.030); UROBILINOGEN NEG (NEG); ZZURINE CULT IF INDIC CATH NO
[2016-11-20 23:44] LABS: MANUAL MICROSCOPIC REQUIRED? NO; REVIEW REQ? YES
[2016-11-20] MEDS ORDERED: ATOR-26 PO (23:49)
[2016-11-20] MEDS ORDERED: ASPI-435 PO (23:49)
[2016-11-20] MEDS ORDERED: NTRGSL/4 UT (23:54)
[2016-11-20] MEDS ORDERED: POTA20TA13 PO (23:54)
[2016-11-21] VITALS (35 sets, daily range): BP systolic 86–133; BP diastolic 57–82; PULSE 68–90; TEMP 36.3–37.4; O2SAT 94–100; Ht 172.7 cm; Wt 100.2 kg
[2016-11-21] MEDS ORDERED: SODIUM CHLORIDE 0.9% 250ML 250 ML IV STA (00:07)
[2016-11-21] MEDS ORDERED: SODIUM CHLORIDE 0.9% 1000ML 1,000 ML IV STA (00:07)
--- NOTE | 2016-11-21 00:34 | EMERGENCY ROOM VISIT NOTE ---
History First contact with patient: 22:02 Chief Complaint: RESPIRATORY DISTRESS Stated Complaint: SOB Nursing Triage Summary: Pt is from [facility]. Pt was found unresponsive by staff. Pt reports feeling SOB and feels breathing is better with CPAP. Pt uses CPAP at night. EMS reports oxygen saturation in low 80s, patient placed on 15L Nonrebreather with highest saturation 85%. Upon arrival pt is on CPAP with cool extremities and color variations in all extremities. Pt is able to answer questions but does not open his eyes. Pt easily falls back to sleep. Pt is in [facility] for renal failure. Pt is DNR and POLST is on chart. History of Present Illness The patient is a 85 year old male who presents to the Emergency Room with complaints of chest pain and dyspnea that was sudden in onset who resides at the detention. Patient is a DO NOT RESUSCITATE with limited interventions. Per detention, patient was given his evening meds and developed shortness of breath and became hypoxic. EMS was summoned. Upon initial evaluation here, patient was quite hypoxic and patient was placed on BiPAP. He was spitting up bloody frothy sputum, concerning for flash pulmonary edema. Patient was recently treated for UTI and has a history of CHF. Patient denies abdominal pain, back pain, headache, loss of consciousness. Patient is unable to speak in full sentences. Review of Systems See HPI for pertinent positives & negatives. A total of 10 systems reviewed and were otherwise negative. 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 (6) COPD (chronic obstructive pulmonary disease) (7) DM2 (diabetes mellitus, type 2) (8) Hyperkalemia (9) Hyperlipidemia (10) Hypertension (11) Hypoglycemia (12) Nasal bone fracture (13) STEMI (ST elevation myocardial infarction) Surgical Problems: (1) Hx of heart artery stent (2) Hx of heart surgery (3) Hx of tonsillectomy Social History Smoking Status: Unknown if Ever Smoked Alcohol Use: none Drug Use: none Marital Status: Occupation Status: retired Current/Historical Medications Scheduled Allopurinol (Zyloprim), 300 MG PO QAM Aspirin (Aspirin 81), 81 MG PO QAM Atorvastatin (Lipitor), 80 MG PO HS Clopidogrel (Plavix), 75 MG PO QAM Finasteride (Proscar), 5 MG PO QAM Furosemide (Lasix), 40 MG PO TID Isosorbide Mononitrate Ext Rel (Imdur Ext Rel), 60 MG PO QAM Metoprolol Tartrate (Lopressor), 25 MG PO BID Potassium Chloride Microencaps (Potassium Chloride Er), 20 MEQ PO TID Senna (Senna Lax), 8.6 MG PO QAM Sertraline (Zoloft), 50 MG PO QAM Sitagliptin (Januvia), 25 MG PO DAILY Scheduled PRN Ipratropium-Albuterol (Duoneb), 1 TREATMENT INH Q6 PRN for SOB/Wheezing Nitroglycerin (Nitrostat), 0.4 MG UT UD PRN for Chest Pain Polyethylene Glycol 3350 (Miralax), 17 GM PO QAM PRN for Constipation Allergies Coded Allergies: Zolpidem (Verified Allergy, Severe, SOB, MUSCLES "LOCK UP" PER GMG, ) DELIRIUM. Confusion. Insomnia. Insulin Aspart (Verified Adverse Reaction, Intermediate, REDDENED RASH ALL OVER BODY, 11/03/16) Insulin Glargine (Verified Adverse Reaction, Intermediate, REDDENED RASH ALL OVER BODY, 11/03/16) Amoxicillin (Verified Adverse Reaction, Unknown, NIGHTMARES, 11/03/16) Physical Exam Vital Signs Date Time Temp Pulse Resp B/P Pulse Ox O2 Delivery O2 Flow Rate FiO2 11/21/16 00:12 87 20 118/70 100 BiPAP 11/20/16 23:05 101 12 124/69 100 BiPAP 11/20/16 22:18 104 11/20/16 22:15 104 95 11/20/16 22:05 BiPAP 11/20/16 22:05 94 BiPAP 100 11/20/16 22:00 38.9 104 34 124/75 95 BiPAP 100 11/20/16 22:00 95 BiPAP 100 Physical Exam VITALS: Vitals are noted on the nurse's note and reviewed by myself. Vital signs hypoxic and febrile GENERAL: Ill appearing male struggling to breathe spitting up bloody frothy sputum SKIN: The skin was without rashes, erythema, or bruising. HEAD: Normocephalic atraumatic. EARS: External auditory canals clear, tympanic membranes pearly kenney without erythema or effusion bilaterally. EYES: Pupils equal round and reactive to light and accommodation. Conjunctivae without injection, sclerae without icterus. Extraocular movements intact. NOSE: Patent, turbinates without inflammation or discharge. MOUTH: Mucous membranes mildly dry. Pharynx without erythema or exudate. Uvula midline. Airway patent. Tongue does not deviate. NECK: Supple without nuchal rigidity. No lymphadenopathy. No thyromegaly. Cervical spine is nontender. No JVD. HEART: Regular rate and rhythm LUNGS: Diffuse and sclerae and expiratory rales /wheeze. + retractions and accessory muscle use. ABDOMEN: Positive bowel sounds x 4. Normal tympanic percussion. Soft, or tumor , obese, nontender, without masses or organomegaly. Cruz sign negative. No guarding or rebound tenderness. MUSCULOSKELETAL: No muscle atrophy, erythema, noted. +1 pitting edema up to the mid tib-fib NEURO: Patient was alert and oriented to person place and following commands. Normal sensation to light and sharp touch. No focal neurological deficits. Medical Decision & Procedures Laboratory Results 11/20/16 22:24 Red Blood Count 3.30, Mean Corpuscular Volume 94.8, Mean Corpuscular Hemoglobin 29.7, Mean Corpuscular Hemoglobin Concent 31.3, Mean Platelet Volume 8.8, Neutrophils (%) (Auto) 84.9, Lymphocytes (%) (Auto) 6.7, Monocytes (%) (Auto) 6.5, Eosinophils (%) (Auto) 0.8, Basophils (%) (Auto) 0.4, Neutrophils # (Auto) 15.30, Lymphocytes # (Auto) 1.20, Monocytes # (Auto) 1.17, Eosinophils # (Auto) 0.14, Basophils # (Auto) 0.07 11/20/16 22:24 Test 11/20/16 22:22 11/20/16 22:24 11/20/16 22:27 11/20/16 22:31 Venous Blood pH 7.29 (7.36-7.41) Venous Blood Partial Pressure CO2 49 mmHg (38.0-50.0) Venous Blood Partial Pressure O2 34 mmHg Venous Blood HCO3 23 mmol/L Venous Blood Oxygen Saturation < 60.0 % Venous Blood Base Excess -3.9 mmol/L White Blood Count 18.01 K/uL (4.8-10.8) Red Blood Count 3.30 M/uL (4.7-6.1) Hemoglobin 9.8 g/dL (14.0-18.0) Hematocrit 31.3 % (42-52) Mean Corpuscular Volume 94.8 fL (80-100) Mean Corpuscular Hemoglobin 29.7 pg (25-34) Mean Corpuscular Hemoglobin Concent 31.3 g/dl (32-36) Platelet Count 475 K/uL (130-400) Mean Platelet Volume 8.8 fL (7.4-10.4) Neutrophils (%) (Auto) 84.9 % Lymphocytes (%) (Auto) 6.7 % Monocytes (%) (Auto) 6.5 % Eosinophils (%) (Auto) 0.8 % Basophils (%) (Auto) 0.4 % Neutrophils # (Auto) 15.30 K/uL (1.4-6.5) Lymphocytes # (Auto) 1.20 K/uL (1.2-3.4) Monocytes # (Auto) 1.17 K/uL (0.11-0.59) Eosinophils # (Auto) 0.14 K/uL (0-0.5) Basophils # (Auto) 0.07 K/uL (0-0.2) RDW Standard Deviation 53.6 fL (36.4-46.3) RDW Coefficient of Variation 15.4 % (11.5-14.5) Immature Granulocyte % (Auto) 0.7 % Immature Granulocyte # (Auto) 0.13 K/uL (0.00-0.02) Nucleated RBC Absolute Count (auto) 0.05 K/uL (0-0) Nucleated Red Blood Cells % 0.3 % Red Blood Cell Morphology Unremarkable Estimated GFR () 31.8 Estimated GFR (Non- 27.5 BUN/Creatinine Ratio 26.4 (10-20) Calcium Level 8.4 mg/dl (8.5-10.1) Magnesium Level 2.6 mg/dl (1.8-2.4) Total Bilirubin 1.3 mg/dl (0.2-1) Direct Bilirubin 0.5 mg/dl (0-0.2) Aspartate Amino Transf (AST/SGOT) 64 U/L (15-37) Alanine Aminotransferase (ALT/SGPT) 50 U/L (12-78) Alkaline Phosphatase 175 U/L (45-117) Total Creatine Kinase 86 U/L (39-308) Creatine Kinase MB 3.8 ng/ml (0.5-3.6) Creatine Kinase MB Ratio 4.4 (0-3.0) Troponin I 0.071 ng/ml (0-0.045) Total Protein 8.2 gm/dl (6.4-8.2) Albumin 3.3 gm/dl (3.4-5.0) Lipase 148 U/L (73-393) Procalcitonin 0.34 ng/ml (0-0.5) Thyroid Stimulating Hormone (TSH) 59.300 uIu/ml (0.300-4.500) Bedside Troponin I 0.100 ng/ml (0-0.045) Bedside Hemoglobin 11.6 g/dl (14.0-18.0) Bedside Hematocrit 34 % (42-52) Bedside Sodium 132 mEq/L (135-144) Bedside Potassium 5.5 mEq/L (3.3-5.0) Bedside Chloride 98 mEq/L (101-112) Bedside Total CO2 22 mEq/l (24-31) Anion Gap 19.0 mmol/L (16-25) Bedside Blood Urea Nitrogen 58 mg/dl (7-18) Bedside Creatinine 1.9 mg/dl (0.6-1.3) Bedside Glucose (other) 200 mg/dl (70-99) Bedside Ionized Calcium (Jaxon) 1.01 mmol/l (1.12-1.32) Test 11/20/16 22:49 11/20/16 23:20 Bedside Lactic Acid Venous 3.39 mmol/L (0.90-1.70) Urine Color YELLOW Urine Appearance CLEAR (CLEAR) Urine pH 5.0 (4.5-7.5) Urine Specific [place] 1.016 (1.000-1.030) Urine Protein 1+ (NEG) Urine Glucose (UA) NEG (NEG) Urine Ketones NEG (NEG) Urine Occult Blood TRACE (NEG) Urine Nitrite NEG (NEG) Urine Bilirubin NEG (NEG) Urine Urobilinogen NEG (NEG) Urine Leukocyte Esterase NEG (NEG) Urine WBC (Auto) 1-5 /hpf (0-5) Urine RBC (Auto) 0-4 /hpf (0-4) Urine Hyaline Casts (Auto) 10-30 /lpf (0-5) Urine Epithelial Cells (Auto) >30 /lpf (0-5) Urine Bacteria (Auto) NEG (NEG) Urine Renal Epithelial Cells 0-5 /lpf (0-5) Urine Crystals AMORPHOUS SEDIMENT (NONE Urine Pathogenic Casts /lpf (0) Medications Administered Medications (Trade) Dose Ordered Sig/Vijay Route Start Time Stop Time Status Last Admin Dose Admin Furosemide (Lasix Inj) 40 mg NOW STAT IV 11/20/16 22:29 11/20/16 22:31 DC 11/20/16 22:44 40 MG Piperacillin Sod/ Tazobactam Sod (Zosyn Iv) 4.5 gm NOW STAT IV 11/20/16 22:33 11/20/16 22:35 DC 11/20/16 22:44 4.5 GM Levofloxacin (Levaquin / D5W) 750 mg NOW ONCE IV 11/20/16 22:45 11/20/16 22:46 DC 11/20/16 22:44 750 MG Acetaminophen (Tylenol Supp) 975 mg NOW STAT NH 11/20/16 23:03 11/20/16 23:04 DC 11/20/16 23:22 975 MG ED Course Prior records/ancillary studies reviewed. Triage Nursing notes reviewed. Additional history obtained from nursing detention and EMS. The patient's history was concerning for an onset of dyspnea with hypoxemia. Differential diagnosis: Etiologies such as sepsis, UTI, pneumonia, metabolic, electrolyte abnormalities , cardiac sources, intracerebral event, toxicologic, neurologic, as well as others were entertained. Physical examination: As above. Pertinent findings were acute respiratory distress. Vital signs reviewed and revealed hypoxic and febrile. ER treatment provided: Immediate BiPAP Blood and urine cultures Antibiotics: Zosyn, Levaquin Procedures: Adams catheter On reassessment the patient vital signs improved. Diagnostics interpretation by me: ECG: Normal sinus, left bundle branch block, poor baseline, rate of 107. EKG compared to prior EKG. Impression left bundle branch block sinus tachycardia unchanged interpreted by myself The labs revealed leukocytosis on CBC. Chemistry panel revealed creatinine of 2. LFTs revealed. Cardiac enzymes were elevated. TSH elevated Serum Lactate measurement was 3.7. Initial lactic the nurse had left the tourniquet on cheikh repeat lactic was ordered Blood and urine cultures are pending. Imaging studies: Chest xray revealed pulmonary edema per my interpretation with possible superimposed pneumonia. I spoke to the nurse at the detention who states the patient abruptly became short of breath and hypoxic. EMS was summoned. Consultation: A consultation was placed with Dr Gauthier, hospitalist. The case was discussed and diagnostics were reviewed. The patient was evaluated in the ER for further treatment. I also spoke to Dr. Whitney from the band splitter team in regards to this patient per Dr. Gauthier's request. Case reviewed with my attending. Exam and history seem consistent with flash pulmonary edema with sepsis most likely from pneumonia. Patient was immediately placed on BiPAP and given Lasix. 2 lines were initiated. Patient is a DO NOT RESUSCITATE with limited interventions. Septic orders were ordered. He was given Lasix and had great improvement. He is able to answer questions and not able to speak in full sentences still. Patient did not have acute abdomen on exam. He was febrile. He was given Tylenol. Adams catheter was placed. He was reassessed multiple times. He had great improvement after being medicated as above. Blood pressure remained stable. Medical Decision As above Impression Primary Impression: Pulmonary edema Additional Impressions: Sepsis Hypoxemia Elevated troponin Elevated TSH Critical Care I have personally spent greater than 60 minutes of critical care time in the direct management of this patient. This includes bedside care, interpretation of diagnostic studies, and testing, discussion with consultants, patient, and family members, and other required patient management activities. This 60 minutes is in excess of all separately billable procedures. Departure Information Dispostion Being Evaluated By Hospitalist Condition POOR Referrals Jeffery Chambers (PCP) Patient Instructions Asthma - [facility], COPD - [facility], Croup - [facility], My [facility] Problem Qualifiers Primary Impression: Pulmonary edema Chronicity: acute Qualified Codes: J81.0 - Acute pulmonary edema Additional Impressions: Sepsis Sepsis type: sepsis due to unspecified organism Qualified Codes: A41.9 - Sepsis, unspecified organism
[2016-11-21] MEDS ORDERED: GLUCOSE 10 TABS/TUBE PO PRN (01:00)
[2016-11-21] MEDS ORDERED: GLUCAGON FOR INJ 1 MG VIAL SQ PRN (01:00)
[2016-11-21] MEDS ORDERED: DEXTROSE 50% 50 ML SYR IV PRN (01:00)
[2016-11-21] MEDS ORDERED: GLUCOSE 40% GEL 15 GM TUBE PO PRN (01:00)
[2016-11-21] MEDS ORDERED: ACETAMINOPHEN 325 MG TAB PO PRN (01:15)
[2016-11-21] MEDS ORDERED: HEPARIN SOD 5000 UNIT/0.5 ML CARP SQ SCH ×2 (01:15→14:00)
[2016-11-21 02:08] LABS: IPAP 15; ISTAT ALLEN TEST Pass; ISTAT ARTERIAL BLOOD GAS HCO3 26 meq/L (19-24); ISTAT ARTERIAL BLOOD GAS PCO2 43 mmHg (35-46); ISTAT ARTERIAL BLOOD GAS PO2 200 mmHg (80-95); ISTAT ARTERIAL BLOOD GAS pH 7.39 (7.35-7.45); ISTAT CARBON DIOXIDE 28 mEq/l (24-31); ISTAT DELIVERY SYSTEM BIPAP; ISTAT FIO2 100 %; ISTAT RATE 12; ISTAT SITE R Radial
[2016-11-21] MEDS ORDERED: VANCOMYCIN CONSULT ACTIVE PRN (02:34)
[2016-11-21] MEDS ORDERED: AZTREONAM CONSULT ACTIVE PRN ×2 (02:45)
[2016-11-21] MEDS ORDERED: LEVOFLOXACIN CONSULT ACTIVE PRN (02:45)
[2016-11-21] MEDS ORDERED: VANCOMYCIN INJ 2,000 MG in SODIUM CHLORIDE 0.9% 500ML 500 ML IV ONE (03:00)
[2016-11-21] MEDS: INSULIN ASPART 100 UNITS/ML 3 ML PEN SC SCH ×4 (03:00→16:47)
[2016-11-21] MEDS ORDERED: PHARMACY GLYCEMIC MGMT CONSULT PRN (03:03)
[2016-11-21] MEDS ORDERED: INSULIN GLARGINE SOLOSTAR 100 UNITS/ML 3 ML PEN SC ONE (03:30)
[2016-11-21 03:55] LABS: BUN/CREATININE RATIO 28.2 (10-20); CALCIUM 8.1 mg/dl (8.5-10.1); CREATININE 2.1 mg/dl (0.60-1.40); POTASSIUM 5.5 mmol/L (3.5-5.1)
[2016-11-21 04:04] LABS: CKMB/CK RATIO 4.3 (0-3.0)
[2016-11-21] MEDS: AZTREONAM IV 1,000 MG in DEXTROSE 5% 100ML IV SCH ×3 (05:50→20:59)
--- NOTE | 2016-11-21 07:26 | DIAGNOSTIC IMAGING REPORT ---
HEAD CT NONCONTRAST CT DOSE: 537.48 mGy.cm HISTORY: ALTERED MENTAL STATUS TECHNIQUE: Multiaxial CT images of the head were performed without the use of intravenous contrast. Automated exposure control was utilized for this study. Comparison: Head CT 11/03/2016. Findings: The paranasal sinuses and mastoid air cells are clear. The calvarium and skull base are intact. There is no mass, hematoma, midline shift, acute infarct. White matter hypodensity is nonspecific but suggestive of microvascular ischemic change. The ventricles and sulci demonstrate mild age-related involutional changes. Extensive vascular calcification seen within the middle cerebral arteries. Symmetric prominence of the bilateral superior veins. Impression: No significant change compared to the prior study. No acute intracranial abnormality. Electronically signed by: Alan Jones M.D. 11/21/2016 7:25 AM Dictated Date/Time: 11/21/2016 7:23 AM
--- NOTE | 2016-11-21 07:40 | History and Physical ---
History & Physical Date & Time of Service: November 21, 2016 at 01:45 Chief Complaint: Hypoxemia Primary Care Physician: Jeffery Chambers History of Present Illness Source: clinic records, hospital records 85 year old male with history of CAD/CABG, CHF Systolic, Asthma, DM, Obstructive Sleep Apnea, CKD 4, Anemia presenting with hypoxia. Resident of [facility] at [place]. Patient was discharged 10 days ago for NSTEMI and Acute Renal Failure. Today, patient was brought in due to shortness of breath and hypoxia. At the ER, patient was also noted to have pink frothy sputum. He was placed on Bipap and was given IV lasix with IV antibiotics. On my exam, patient seems comfortable, Bipap mask on. He is sleeping, easily rousable but when asked questions, keeps repeating "i don 't remember". ROS cannot be performed. Past Medical/Surgical History Medical Problems: (1) CKD (chronic kidney disease) Status: Chronic (2) COPD (chronic obstructive pulmonary disease) Status: Chronic (3) DM2 (diabetes mellitus, type 2) Status: Chronic (4) Hypertension Status: Chronic Social History Smoking Status: Unknown if Ever Smoked Smokeless Tobacco Use: No Alcohol Use: none Drug Use: none Marital Status: Housing status: other Occupational Status: retired Multi-Drug Resistant Organisms History of MDRO: Yes Type of MDRO: MRSA Allergies Coded Allergies: Zolpidem (Verified Allergy, Severe, SOB, MUSCLES "LOCK UP" PER GMG, ) DELIRIUM. Confusion. Insomnia. Insulin Aspart (Verified Adverse Reaction, Intermediate, REDDENED RASH ALL OVER BODY, 11/03/16) Insulin Glargine (Verified Adverse Reaction, Intermediate, REDDENED RASH ALL OVER BODY, 11/03/16) Amoxicillin (Verified Adverse Reaction, Unknown, NIGHTMARES, 11/03/16) Home Medications Scheduled Allopurinol (Zyloprim), 300 MG PO QAM Aspirin (Aspirin 81), 81 MG PO QAM Atorvastatin (Lipitor), 80 MG PO HS Clopidogrel (Plavix), 75 MG PO QAM Finasteride (Proscar), 5 MG PO QAM Furosemide (Lasix), 40 MG PO TID Isosorbide Mononitrate Ext Rel (Imdur Ext Rel), 60 MG PO QAM Metoprolol Tartrate (Lopressor), 25 MG PO BID Potassium Chloride Microencaps (Potassium Chloride Er), 20 MEQ PO TID Senna (Senna Lax), 8.6 MG PO QAM Sertraline (Zoloft), 50 MG PO QAM Sitagliptin (Januvia), 25 MG PO DAILY Scheduled PRN Ipratropium-Albuterol (Duoneb), 1 TREATMENT INH Q6 PRN for SOB/Wheezing Nitroglycerin (Nitrostat), 0.4 MG UT UD PRN for Chest Pain Polyethylene Glycol 3350 (Miralax), 17 GM PO QAM PRN for Constipation Review of Systems cannot be assessed as patient has altered mental status Physical Exam Vital Signs Date Time Temp Pulse Resp B/P Pulse Ox O2 Delivery O2 Flow Rate FiO2 11/21/16 00:41 38.3 82 20 105/64 100 BiPAP 11/21/16 00:12 87 20 118/70 100 BiPAP 11/20/16 23:05 101 12 124/69 100 BiPAP 11/20/16 22:18 104 11/20/16 22:15 104 95 11/20/16 22:05 BiPAP 11/20/16 22:05 94 BiPAP 100 11/20/16 22:00 38.9 104 34 124/75 95 BiPAP 100 11/20/16 22:00 95 BiPAP 100 General Appearance: WD/WN, no apparent distress Head: normocephalic, atraumatic Eyes: normal inspection, PERRL, EOMI, sclerae normal ENT: normal ENT inspection Neck: supple, no adenopathy, thyroid normal, trachea midline, + pertinent finding (jvd) Respiratory/Chest: + pertinent finding ((+) bilateral rales) Cardiovascular: regular rate, rhythm, no murmur, + pertinent finding ((+) JVD) Abdomen/GI: normal bowel sounds, non tender, soft Back: normal inspection, no CVA tenderness Extremities/Musculoskelatal: + pertinent finding ((+) bilateral lower leg edema ) Neurologic/Psych: no motor/sensory deficits, alert, + pertinent finding (not oriented) Skin: normal color, warm/dry, no rash Lymphatic: no adenopathy Diagnostics Laboratory Results Results Past 24 Hours Test 11/20/16 22:22 11/20/16 22:24 11/20/16 22:27 11/20/16 22:31 Range/Units Venous Blood pH 7.29 7.36-7.41 Venous Blood Partial Pressure CO2 49 38.0-50.0 mmHg Venous Blood Partial Pressure O2 34 mmHg Venous Blood HCO3 23 mmol/L Venous Blood Oxygen Saturation < 60.0 % Venous Blood Base Excess -3.9 mmol/L White Blood Count 18.01 4.8-10.8 K/uL Red Blood Count 3.30 4.7-6.1 M/uL Hemoglobin 9.8 14.0-18.0 g/dL Hematocrit 31.3 42-52 % Mean Corpuscular Volume 94.8 80-100 fL Mean Corpuscular Hemoglobin 29.7 25-34 pg Mean Corpuscular Hemoglobin Concent 31.3 32-36 g/dl Platelet Count 475 130-400 K/uL Mean Platelet Volume 8.8 7.4-10.4 fL Neutrophils (%) (Auto) 84.9 % Lymphocytes (%) (Auto) 6.7 % Monocytes (%) (Auto) 6.5 % Eosinophils (%) (Auto) 0.8 % Basophils (%) (Auto) 0.4 % Neutrophils # (Auto) 15.30 1.4-6.5 K/uL Lymphocytes # (Auto) 1.20 1.2-3.4 K/uL Monocytes # (Auto) 1.17 0.11-0.59 K/uL Eosinophils # (Auto) 0.14 0-0.5 K/uL Basophils # (Auto) 0.07 0-0.2 K/uL RDW Standard Deviation 53.6 36.4-46.3 fL RDW Coefficient of Variation 15.4 11.5-14.5 % Immature Granulocyte % (Auto) 0.7 % Immature Granulocyte # (Auto) 0.13 0.00-0.02 K/uL Nucleated RBC Absolute Count (auto) 0.05 0-0 K/uL Nucleated Red Blood Cells % 0.3 % Red Blood Cell Morphology Unremarkable Sodium Level 135 136-145 mmol/L Potassium Level 5.2 3.5-5.1 mmol/L Chloride Level 99 98-107 mmol/L Carbon Dioxide Level 24 21-32 mmol/L Anion Gap 12.0 19.0 16-25 mmol/L Blood Urea Nitrogen 55 7-18 mg/dl Creatinine 2.10 0.60-1.40 mg/dl Estimated GFR () 31.8 Estimated GFR (Non- 27.5 BUN/Creatinine Ratio 26.4 10-20 Random Glucose 208 70-99 mg/dl Calcium Level 8.4 8.5-10.1 mg/dl Magnesium Level 2.6 1.8-2.4 mg/dl Total Bilirubin 1.3 0.2-1 mg/dl Direct Bilirubin 0.5 0-0.2 mg/dl Aspartate Amino Transf (AST/SGOT) 64 15-37 U/L Alanine Aminotransferase (ALT/SGPT) 50 12-78 U/L Alkaline Phosphatase 175 45-117 U/L Total Creatine Kinase 86 39-308 U/L Creatine Kinase MB 3.8 0.5-3.6 ng/ml Creatine Kinase MB Ratio 4.4 0-3.0 Troponin I 0.071 0-0.045 ng/ml Total Protein 8.2 6.4-8.2 gm/dl Albumin 3.3 3.4-5.0 gm/dl Lipase 148 73-393 U/L Procalcitonin 0.34 0-0.5 ng/ml Thyroid Stimulating Hormone (TSH) 59.300 0.300-4.500 uIu/ml Bedside Troponin I 0.100 0-0.045 ng/ml Bedside Hemoglobin 11.6 14.0-18.0 g/dl Bedside Hematocrit 34 42-52 % Bedside Sodium 132 135-144 mEq/L Bedside Potassium 5.5 3.3-5.0 mEq/L Bedside Chloride 98 101-112 mEq/L Bedside Total CO2 22 24-31 mEq/l Bedside Blood Urea Nitrogen 58 7-18 mg/dl Bedside Creatinine 1.9 0.6-1.3 mg/dl Bedside Glucose (other) 200 70-99 mg/dl Bedside Ionized Calcium (Jaxon) 1.01 1.12-1.32 mmol/l Test 11/20/16 22:36 11/20/16 22:49 11/20/16 23:20 11/21/16 00:45 Range/Units Bedside Lactic Acid Venous 5.13 3.39 0.90-1.70 mmol/L Urine Color YELLOW Urine Appearance CLEAR CLEAR Urine pH 5.0 4.5-7.5 Urine Specific [place] 1.016 1.000-1.030 Urine Protein 1+ NEG Urine Glucose (UA) NEG NEG Urine Ketones NEG NEG Urine Occult Blood TRACE NEG Urine Nitrite NEG NEG Urine Bilirubin NEG NEG Urine Urobilinogen NEG NEG Urine Leukocyte Esterase NEG NEG Urine WBC (Auto) 1-5 0-5 /hpf Urine RBC (Auto) 0-4 0-4 /hpf Urine Hyaline Casts (Auto) 10-30 0-5 /lpf Urine Epithelial Cells (Auto) >30 0-5 /lpf Urine Bacteria (Auto) NEG NEG Urine Renal Epithelial Cells 0-5 0-5 /lpf Urine Crystals AMORPHOUS SEDIMENT NONE PRSENT Urine Pathogenic Casts 0 /lpf Microbiology Results 11/21/16 Blood Culture, Marylou Batch Pending 11/21/16 Blood Culture, Marylou Batch Pending 11/21/16 MRSA DNA Surveillance Screen, Marylou Batch Pending Diagnostic Radiology CHEST ONE VIEW PORTABLE HISTORY: Atypical CHEST PAIN COMPARISON: Chest 11/04/2016. FINDINGS: Poststernotomy changes. The heart is mildly enlarged. Right greater the left interstitial thickening and patchy airspace opacities. Small bilateral pleural effusions. No pneumothorax. IMPRESSION: Cardiomegaly with right greater than left interstitial thickening and patchy airspace opacities. There are small bilateral pleural effusions. Findings are consistent with severe pulmonary edema. Impression Assessment and Plan 85 year old male with history of CAD/CABG, CHF Systolic, Asthma, DM, Obstructive Sleep Apnea, CKD 4, Anemia presenting with hypoxia. 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 Y/N: Yes Risk Level: Moderate Given or contraindicated: Unfractionated heparin SQ
[2016-11-21] MEDS: SENNA 8.6 MG TAB PO SCH (08:20)
[2016-11-21] MEDS: ALLOPURINOL 300 MG TAB PO SCH (08:20)
[2016-11-21] MEDS: CLOPIDOGREL BISULFATE 75 MG TAB PO SCH (08:20)
[2016-11-21] MEDS: ASPIRIN 81 MG ECTAB PO SCH (08:21)
[2016-11-21] MEDS: PANTOprazole INJ 40 MG in SYRINGE 0 ML IV SCH (08:21)
[2016-11-21] MEDS: SERTRALINE HCL 50 MG TAB PO SCH (08:21)
[2016-11-21] MEDS ORDERED: FUROSEMIDE INJ 40 MG in SYRINGE 0 ML IV SCH (09:00)
[2016-11-21] MEDS ORDERED: METOPROLOL TARTRATE 25 MG TAB PO SCH (09:00)
[2016-11-21 09:11] LABS: BASO % 0.3 %; BASO ABS # 0.05 K/uL (0-0.2); COMPLETE YES; EOS % 0.1 %; HEMATOCRIT 27.7 % (42-52); IG% 0.5 %; LYMPH % 3.7 %; LYMPH ABS # 0.73 K/uL (1.2-3.4); MEAN CELL VOLUME 94.5 fL (80-100); MEAN CORPUSCULAR HEMOGLOBIN 31.1 pg (25-34); MEAN CORPUSCULAR HGB CONC 32.9 g/dl (32-36); MEAN PLATELET VOLUME 8.5 fL (7.4-10.4); MONO % 10.3 %; NEUT % 85.1 %; PLATELET COUNT 331 K/uL (130-400); RED BLOOD COUNT 2.93 M/uL (4.7-6.1)
--- NOTE | 2016-11-21 09:18 | Critical Care Consultation ---
Critical Care Consultation Date of Consultation: November 21, 2016. Attending Physician: Malini Bravo M.D. Reason for Consultation: acute respiratory failure History of Present Illness This is an 85 yo male patient known to have CHF, CAD, FILIBERTO and reported to have COPD but I can not find PFT and the pulmonary consult of 06/2016 is inconclusive about his COPD status. He is on BIPAP at [facility]. He was transferred to [facility] because he was found unresponsive by staff. Pt reports EMS reported oxygen saturation in low 80s, patient placed on 15L Nonrebreather with highest saturation 85%. Upon arrival pt is on CPAP with cool extremities. Ed reported he was spitting up bloody frothy sputum, concerning for flash pulmonary edema. Pt was able to answer simple questions but does not open his eyes or speak in full sentences per ED notes. When I saw him he was alert on BIPAP 15/5 FIO2 50% . he is saturating 100% and his most recent ABG showed pCO2 43 and PaO2 200. Patient is heard of hearing. He says he does not remember what happened. He denies currently having CP, SOB feverishness, chills, nausea vomiting belly pain or headache. failure. Pt is DNR and POLST is on chart. Per cardiology the patient had a recent NSTEMI on the prior visit with troponin up to 9 and change. He is a poor candidate for any intervention given his kidney status CXR done showed he had dense consolidation in the R lung field and infiltrates in the LL field with b/ blunting costophrenic angles. Bedside echo by me showed depressed LV function no pericardial fluid or significant pleural effusion.Lung torres show multiple comet signs though suggestive of edema. 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 Smoking Status: Unknown if Ever Smoked Drug Use: none Marital Status: Occupation Status: retired Allergies Coded Allergies: Zolpidem (Verified Allergy, Severe, SOB, MUSCLES "LOCK UP" PER GMG, ) DELIRIUM. Confusion. Insomnia. Insulin Aspart (Verified Adverse Reaction, Intermediate, REDDENED RASH ALL OVER BODY, 11/03/16) Insulin Glargine (Verified Adverse Reaction, Intermediate, REDDENED RASH ALL OVER BODY, 11/03/16) Amoxicillin (Verified Adverse Reaction, Unknown, NIGHTMARES, 11/03/16) Home Medications Scheduled Allopurinol (Zyloprim), 300 MG PO QAM Aspirin (Aspirin 81), 81 MG PO QAM Atorvastatin (Lipitor), 80 MG PO HS Clopidogrel (Plavix), 75 MG PO QAM Finasteride (Proscar), 5 MG PO QAM Furosemide (Lasix), 40 MG PO TID Isosorbide Mononitrate Ext Rel (Imdur Ext Rel), 60 MG PO QAM Metoprolol Tartrate (Lopressor), 25 MG PO BID Potassium Chloride Microencaps (Potassium Chloride Er), 20 MEQ PO TID Senna (Senna Lax), 8.6 MG PO QAM Sertraline (Zoloft), 50 MG PO QAM Sitagliptin (Januvia), 25 MG PO DAILY Scheduled PRN Ipratropium-Albuterol (Duoneb), 1 TREATMENT INH Q6 PRN for SOB/Wheezing Nitroglycerin (Nitrostat), 0.4 MG UT UD PRN for Chest Pain Polyethylene Glycol 3350 (Miralax), 17 GM PO QAM PRN for Constipation Current Inpatient Medications Current Inpatient Medications Medications (Trade) Dose Ordered Sig/Vijay Route Start Time Stop Time Status Last Admin Dose Admin Furosemide/Syringe (Lasix Inj/ Syringe) 4 ml @ 4 mls/min DAILY@0900 IV 11/21/16 09:00 12/21/16 08:59 Vancomycin HCl (Consult) 1 ea UD PRN N/A 11/21/16 02:34 12/21/16 02:33 Insulin Aspart (novoLOG ASPART) SLIDING SCALE If C... Q6 SC 11/21/16 03:00 12/21/16 02:59 Glucose (Glucose 40% Gel) 15-30 GRAMS 15 GRAMS... UD PRN PO 11/21/16 01:00 12/21/16 00:59 Glucose (Glucose Chew Tab) 4-8 Tablets 4 Tabl... UD PRN PO 11/21/16 01:00 12/21/16 00:59 Dextrose (Dextrose 50% 50ML Syringe) 25-50ML OF 50% DW IV FOR... UD PRN IV 11/21/16 01:00 12/21/16 00:59 Glucagon (Glucagon Inj) 1 mg UD PRN SQ 11/21/16 01:00 12/21/16 00:59 Miscellaneous Information (Consult Glycemic Management Pharmacy) 1 ea UD PRN N/A 11/21/16 03:03 12/21/16 03:02 Allopurinol (Zyloprim Tab) 300 mg QAM PO 11/21/16 09:00 12/21/16 08:59 Aspirin (Ecotrin Tab) 81 mg QAM PO 11/21/16 09:00 12/21/16 08:59 Atorvastatin Calcium (Lipitor Tab) 80 mg HS PO 11/21/16 21:00 12/21/16 20:59 Clopidogrel Bisulfate (plAVix TAB) 75 mg QAM PO 11/21/16 09:00 12/21/16 08:59 Metoprolol Tartrate (Lopressor Tab) 25 mg BID PO 11/21/16 09:00 12/21/16 08:59 Senna (Senokot Tab) 8.6 mg QAM PO 11/21/16 09:00 12/21/16 08:59 Sertraline HCl (Zoloft Tab) 50 mg QAM PO 11/21/16 09:00 12/21/16 08:59 Acetaminophen 650 mg 650 mg Q4H PRN PO 11/21/16 01:15 12/21/16 01:14 Pantoprazole Sodium/Syringe (Protonix Inj/ Syringe) 10 ml @ 5 mls/min DAILY@1100 IV 11/21/16 11:00 12/21/16 10:59 Aztreonam (Consult) 1 ea UD PRN N/A 11/21/16 02:45 12/21/16 02:44 Levofloxacin 1 ea 1 ea UD PRN N/A 11/21/16 02:45 12/21/16 02:44 Levofloxacin 750 mg/Prmx 150 ml @ 100 mls/hr Q48H IV 11/22/16 22:00 11/27/16 21:59 Aztreonam/Dextrose (Azactam IV/D5 100ml) 110 ml @ 110 mls/hr Q8H IV 11/21/16 06:00 11/28/16 05:59 11/21/16 05:50 110 MLS/HR Review of Systems patient denied any complaint on a 10 point ROS. He obviously is heard of hearing but is not visually impaired. he knows he is in the hospital but is not oriented to time. Physical Exam Date Time Temp Pulse Resp B/P Pulse Ox O2 Delivery O2 Flow Rate FiO2 11/21/16 07:30 74 100 50 11/21/16 06:01 36.7 71 20 94/62 100 11/21/16 05:26 71 100 60 11/21/16 05:01 36.9 70 20 98/59 100 11/21/16 04:11 100 BiPAP 100 11/21/16 04:01 37.1 72 20 94/60 100 11/21/16 03:01 37.3 74 22 97/59 100 11/21/16 03:01 37.3 74 22 97/59 100 BiPAP 11/21/16 02:39 37.4 75 21 96/64 100 BiPAP 11/21/16 02:08 36.4 75 24 87/58 100 BiPAP 11/21/16 01:58 76 100 100 11/21/16 01:20 36.4 78 22 86/60 100 BiPAP 11/21/16 00:41 38.3 82 20 105/64 100 BiPAP 11/21/16 00:12 87 20 118/70 100 BiPAP 11/20/16 23:05 101 12 124/69 100 BiPAP 11/20/16 22:18 104 11/20/16 22:15 104 95 11/20/16 22:05 BiPAP 11/20/16 22:05 94 BiPAP 100 11/20/16 22:00 38.9 104 34 124/75 95 BiPAP 100 11/20/16 22:00 95 BiPAP 100 General Appearance: no apparent distress Head: normocephalic, atraumatic Eyes: no discharge, sclerae normal, conjunctivae normal ENT: other (no pharyngeal edema. He is wearing a BIPAP mask.) Neck: normal range of motion, supple Respiratory: other (rhales and diminished breath sounds) Cardiovasular: regular rate/rhythm, systolic murmur (grade 1-2/6), other ( sternotomy clean scar in midline) Abdomen: non tender, normal bowel sounds, no rebound, no guarding Genitourinary - Male: external genitalia normal Back: normal inspection, no CVA tenderness Upper Extremities: no edema, other (there is no edema in the LE but he has skin changes of vascular in sufficiency) Lower Extremities: no edema, other (skin changes of vascular in sufficicency) Pulses: radial (R) (1+), radial (L), dorsalis pedis (R) (1+), dorsalis pedis (L ) (1+) Neuro: alert, global weakness (motor power is 4/5 but no focal deficits) Psychiatric: normal affect Laboratory Results Last 24 Hours Test 11/20/16 22:22 11/20/16 22:24 11/20/16 22:27 11/20/16 22:31 Venous Blood pH 7.29 Venous Blood Partial Pressure CO2 49 mmHg Venous Blood Partial Pressure O2 34 mmHg Venous Blood HCO3 23 mmol/L Venous Blood Oxygen Saturation < 60.0 % Venous Blood Base Excess -3.9 mmol/L White Blood Count 18.01 K/uL Red Blood Count 3.30 M/uL Hemoglobin 9.8 g/dL Hematocrit 31.3 % Mean Corpuscular Volume 94.8 fL Mean Corpuscular Hemoglobin 29.7 pg Mean Corpuscular Hemoglobin Concent 31.3 g/dl Platelet Count 475 K/uL Mean Platelet Volume 8.8 fL Neutrophils (%) (Auto) 84.9 % Lymphocytes (%) (Auto) 6.7 % Monocytes (%) (Auto) 6.5 % Eosinophils (%) (Auto) 0.8 % Basophils (%) (Auto) 0.4 % Neutrophils # (Auto) 15.30 K/uL Lymphocytes # (Auto) 1.20 K/uL Monocytes # (Auto) 1.17 K/uL Eosinophils # (Auto) 0.14 K/uL Basophils # (Auto) 0.07 K/uL RDW Standard Deviation 53.6 fL RDW Coefficient of Variation 15.4 % Immature Granulocyte % (Auto) 0.7 % Immature Granulocyte # (Auto) 0.13 K/uL Nucleated RBC Absolute Count (auto) 0.05 K/uL Nucleated Red Blood Cells % 0.3 % Red Blood Cell Morphology Unremarkable Sodium Level 135 mmol/L Potassium Level 5.2 mmol/L Chloride Level 99 mmol/L Carbon Dioxide Level 24 mmol/L Anion Gap 12.0 mmol/L 19.0 mmol/L Blood Urea Nitrogen 55 mg/dl Creatinine 2.10 mg/dl Estimated GFR () 31.8 Estimated GFR (Non- 27.5 BUN/Creatinine Ratio 26.4 Random Glucose 208 mg/dl Calcium Level 8.4 mg/dl Magnesium Level 2.6 mg/dl Total Bilirubin 1.3 mg/dl Direct Bilirubin 0.5 mg/dl Aspartate Amino Transf (AST/SGOT) 64 U/L Alanine Aminotransferase (ALT/SGPT) 50 U/L Alkaline Phosphatase 175 U/L Total Creatine Kinase 86 U/L Creatine Kinase MB 3.8 ng/ml Creatine Kinase MB Ratio 4.4 Troponin I 0.071 ng/ml Total Protein 8.2 gm/dl Albumin 3.3 gm/dl Lipase 148 U/L Procalcitonin 0.34 ng/ml Thyroid Stimulating Hormone (TSH) 59.300 uIu/ml Bedside Troponin I 0.100 ng/ml Bedside Hemoglobin 11.6 g/dl Bedside Hematocrit 34 % Bedside Sodium 132 mEq/L Bedside Potassium 5.5 mEq/L Bedside Chloride 98 mEq/L Bedside Total CO2 22 mEq/l Bedside Blood Urea Nitrogen 58 mg/dl Bedside Creatinine 1.9 mg/dl Bedside Glucose (other) 200 mg/dl Bedside Ionized Calcium (Jaxon) 1.01 mmol/l Test 11/20/16 22:36 11/20/16 22:49 11/20/16 23:20 11/21/16 01:56 Bedside Lactic Acid Venous 5.13 mmol/L 3.39 mmol/L Urine Color YELLOW Urine Appearance CLEAR Urine pH 5.0 Urine Specific [place] 1.016 Urine Protein 1+ Urine Glucose (UA) NEG Urine Ketones NEG Urine Occult Blood TRACE Urine Nitrite NEG Urine Bilirubin NEG Urine Urobilinogen NEG Urine Leukocyte Esterase NEG Urine WBC (Auto) 1-5 /hpf Urine RBC (Auto) 0-4 /hpf Urine Hyaline Casts (Auto) 10-30 /lpf Urine Epithelial Cells (Auto) >30 /lpf Urine Bacteria (Auto) NEG Urine Renal Epithelial Cells 0-5 /lpf Urine Crystals AMORPHOUS SEDIMENT Urine Pathogenic Casts /lpf Blood Gas Sample Site R Radial Bedside Blood Gas pH (LAB) 7.39 Bedside Blood Gas pCO2 (LAB) 43 mmHg Bedside Blood Gas pO2 (LAB) 200 mmHg Bedside Blood Gas HCO3 (LAB) 26 meq/L Bedside Blood Gas Total CO2 28 mEq/l Bedside Blood Gas Base Excess (LAB) 1.0 meq/L Bedside Blood Gas O2 Saturation 100.0 % Santy Test Pass Oxygen Delivery Device BIPAP Bedside Oxygen Rate (breaths/min) 12 Bedside FiO2 100 % Blood Gas IPAP 15 Test 11/21/16 03:16 11/21/16 03:22 11/21/16 05:53 Bedside Glucose 108 mg/dl 149 mg/dl Sodium Level 135 mmol/L Potassium Level 5.5 mmol/L Chloride Level 101 mmol/L Carbon Dioxide Level 27 mmol/L Anion Gap 7.0 mmol/L Blood Urea Nitrogen 59 mg/dl Creatinine 2.10 mg/dl Est Creatinine Clear Calc Drug Dose 28.7 ml/min Estimated GFR () 31.8 Estimated GFR (Non- 27.5 BUN/Creatinine Ratio 28.2 Random Glucose 106 mg/dl Lactic Acid Level 1.3 mmol/L Calcium Level 8.1 mg/dl Total Creatine Kinase 110 U/L Creatine Kinase MB 4.7 ng/ml Creatine Kinase MB Ratio 4.3 Troponin I 0.867 ng/ml Diagnostic Results XR Cardiomegaly with right greater than left interstitial thickening and patchy airspace opacities. There are small bilateral pleural effusions. Findings are consistent with severe pulmonary edema.\\ SCG IVC delay and left axis deviation unchanged from before. Assessment & Plan 85 yo male with known history of coronary artery disease HFeEF, s/p stent and CABG in 1982, FILIBERTO, smoking history and ? COPD admitted with acute on chronic respiratory failure necessitating NIPPV with a BIPAP. I have looked back at ABG and found no hypercarbia. The decreased consciousness may be due to both hypercarbia or hypoxia. He responded well to BIPAP and is on lasix Flash pulmonary edema seems to be the most likely diagnosis. The next possible Dx is multilobar pneumonia. Sepsis is not likely given the procalcitonin level 1- neurologic restart sertraline 2- respiratory decrease FiO2 to target SPO2 >92% checked PFT and he is 112% of prediscted for FEV1 based on PFTs from 10/28/2016. would not offer BD that increase HR. increase lasix to 40 mg IV BID - he was on TID with xaroxylyn in the past. FILIBERTO continue the BIPA pressure setting 06/02 per sleep study done 04/08/2016 3- cardiovascular lasix BID 40 mg IV continue plavix and aspirin Daily ECG and if he develops CP trend troponin until it peaks cardiology is following resume a small dose metoprolol of 12.5 mg and escalate to patients home dose of 25 daily continue atorvastatin 80 mg daily resume imdur given K level would refrain from CHARO I at this point but may use hydralazine if patients BP increases 4- GI diabetic diet once the BIPAP is intermittantly off pantoprazole 40 mg daily on board 5- renal Increase lasix to BID and monitor daily Cr lasix should decrease the Potassium dose'Will FU potassium in pm with BNP levels resumes finasteride ID for 3 days would use vancomycin, levaquin and aztreonam. if there is no growth on cultures would stop antibiotics FU urine, blood cultures and send sputum cultures 7- DVT prophyalxis with SC heparin if he elevates troponin further or develops changes on ECG may use IV heparin. 8- endocrine insulin sliding scale with phramacy consult would remove lujan once pt is stable. no central lines Patient is critically ill and needs monitoring in the MICU until he is back to baseline patient is DNR / DNI
[2016-11-21 09:33] LABS: CKMB/CK RATIO 5.6 (0-3.0)
--- NOTE | 2016-11-21 09:33 | Pharmacy Progress Note ---
Pharmacy Antibiotic Consult Date of Service: November 21, 2016. Pharmacy Dosing Scope Pharmacy is consulted to initiate vancomycin, levaquin, and azactam IV dosing therapy, order appropriate labs and adjust drug dose/frequency. Subjective The patient is a 85 year old male admitted on November 21, 2016 at 00:39. Objective Height (Feet): 5 Height (Inches): 8.00 Weight (Kilograms): 102.000 Lab Results (24hrs): Test 11/20/16 22:22 11/20/16 22:24 11/20/16 22:27 11/20/16 22:31 Venous Blood pH 7.29 (7.36-7.41) Venous Blood Partial Pressure CO2 49 mmHg (38.0-50.0) Venous Blood Partial Pressure O2 34 mmHg Venous Blood HCO3 23 mmol/L Venous Blood Oxygen Saturation < 60.0 % Venous Blood Base Excess -3.9 mmol/L White Blood Count 18.01 K/uL (4.8-10.8) Red Blood Count 3.30 M/uL (4.7-6.1) Hemoglobin 9.8 g/dL (14.0-18.0) Hematocrit 31.3 % (42-52) Mean Corpuscular Volume 94.8 fL (80-100) Mean Corpuscular Hemoglobin 29.7 pg (25-34) Mean Corpuscular Hemoglobin Concent 31.3 g/dl (32-36) Platelet Count 475 K/uL (130-400) Mean Platelet Volume 8.8 fL (7.4-10.4) Neutrophils (%) (Auto) 84.9 % Lymphocytes (%) (Auto) 6.7 % Monocytes (%) (Auto) 6.5 % Eosinophils (%) (Auto) 0.8 % Basophils (%) (Auto) 0.4 % Neutrophils # (Auto) 15.30 K/uL (1.4-6.5) Lymphocytes # (Auto) 1.20 K/uL (1.2-3.4) Monocytes # (Auto) 1.17 K/uL (0.11-0.59) Eosinophils # (Auto) 0.14 K/uL (0-0.5) Basophils # (Auto) 0.07 K/uL (0-0.2) RDW Standard Deviation 53.6 fL (36.4-46.3) RDW Coefficient of Variation 15.4 % (11.5-14.5) Immature Granulocyte % (Auto) 0.7 % Immature Granulocyte # (Auto) 0.13 K/uL (0.00-0.02) Nucleated RBC Absolute Count (auto) 0.05 K/uL (0-0) Nucleated Red Blood Cells % 0.3 % Red Blood Cell Morphology Unremarkable Sodium Level 135 mmol/L (136-145) Potassium Level 5.2 mmol/L (3.5-5.1) Chloride Level 99 mmol/L (98-107) Carbon Dioxide Level 24 mmol/L (21-32) Blood Urea Nitrogen 55 mg/dl (7-18) Creatinine 2.10 mg/dl (0.60-1.40) Estimated GFR () 31.8 Estimated GFR (Non- 27.5 BUN/Creatinine Ratio 26.4 (10-20) Random Glucose 208 mg/dl (70-99) Calcium Level 8.4 mg/dl (8.5-10.1) Magnesium Level 2.6 mg/dl (1.8-2.4) Total Bilirubin 1.3 mg/dl (0.2-1) Direct Bilirubin 0.5 mg/dl (0-0.2) Aspartate Amino Transf (AST/SGOT) 64 U/L (15-37) Alanine Aminotransferase (ALT/SGPT) 50 U/L (12-78) Alkaline Phosphatase 175 U/L (45-117) Total Protein 8.2 gm/dl (6.4-8.2) Albumin 3.3 gm/dl (3.4-5.0) Lipase 148 U/L (73-393) Procalcitonin 0.34 ng/ml (0-0.5) Thyroid Stimulating Hormone (TSH) 59.300 uIu/ml (0.300-4.500) Bedside Troponin I 0.100 ng/ml (0-0.045) Bedside Hemoglobin 11.6 g/dl (14.0-18.0) Bedside Hematocrit 34 % (42-52) Bedside Sodium 132 mEq/L (135-144) Bedside Potassium 5.5 mEq/L (3.3-5.0) Bedside Chloride 98 mEq/L (101-112) Bedside Total CO2 22 mEq/l (24-31) Anion Gap 19.0 mmol/L (16-25) Bedside Blood Urea Nitrogen 58 mg/dl (7-18) Bedside Creatinine 1.9 mg/dl (0.6-1.3) Bedside Glucose (other) 200 mg/dl (70-99) Bedside Ionized Calcium (Jaxon) 1.01 mmol/l (1.12-1.32) Test 11/20/16 22:36 11/20/16 22:49 11/20/16 23:20 11/21/16 01:56 Bedside Lactic Acid Venous 5.13 mmol/L (0.90-1.70) 3.39 mmol/L (0.90-1.70) Urine Color YELLOW Urine Appearance CLEAR (CLEAR) Urine pH 5.0 (4.5-7.5) Urine Specific [place] 1.016 (1.000-1.030) Urine Protein 1+ (NEG) Urine Glucose (UA) NEG (NEG) Urine Ketones NEG (NEG) Urine Occult Blood TRACE (NEG) Urine Nitrite NEG (NEG) Urine Bilirubin NEG (NEG) Urine Urobilinogen NEG (NEG) Urine Leukocyte Esterase NEG (NEG) Urine WBC (Auto) 1-5 /hpf (0-5) Urine RBC (Auto) 0-4 /hpf (0-4) Urine Hyaline Casts (Auto) 10-30 /lpf (0-5) Urine Epithelial Cells (Auto) >30 /lpf (0-5) Urine Bacteria (Auto) NEG (NEG) Urine Renal Epithelial Cells 0-5 /lpf (0-5) Urine Crystals AMORPHOUS SEDIMENT (NONE Urine Pathogenic Casts /lpf (0) Blood Gas Sample Site R Radial Bedside Blood Gas pH (LAB) 7.39 (7.35-7.45) Bedside Blood Gas pCO2 (LAB) 43 mmHg (35-46) Bedside Blood Gas pO2 (LAB) 200 mmHg (80-95) Bedside Blood Gas HCO3 (LAB) 26 meq/L (19-24) Bedside Blood Gas Total CO2 28 mEq/l (24-31) Bedside Blood Gas Base Excess (LAB) 1.0 meq/L (-9-1.8) Bedside Blood Gas O2 Saturation 100.0 % (90-95) Santy Test Pass Oxygen Delivery Device BIPAP Bedside Oxygen Rate (breaths/min) 12 Bedside FiO2 100 % Blood Gas IPAP 15 Test 11/21/16 03:16 11/21/16 03:22 11/21/16 04:44 11/21/16 05:53 Bedside Glucose 108 mg/dl (70-99) 149 mg/dl (70-99) Sodium Level 135 mmol/L (136-145) Potassium Level 5.5 mmol/L (3.5-5.1) Chloride Level 101 mmol/L (98-107) Carbon Dioxide Level 27 mmol/L (21-32) Anion Gap 7.0 mmol/L (3-11) Blood Urea Nitrogen 59 mg/dl (7-18) Creatinine 2.10 mg/dl (0.60-1.40) Est Creatinine Clear Calc Drug Dose 28.7 ml/min Estimated GFR () 31.8 Estimated GFR (Non- 27.5 BUN/Creatinine Ratio 28.2 (10-20) Random Glucose 106 mg/dl (70-99) Lactic Acid Level 1.3 mmol/L (0.4-2.0) Calcium Level 8.1 mg/dl (8.5-10.1) Total Creatine Kinase 110 U/L (39-308) Creatine Kinase MB 4.7 ng/ml (0.5-3.6) Creatine Kinase MB Ratio 4.3 (0-3.0) Troponin I 0.867 ng/ml (0-0.045) Test 11/21/16 09:00 11/21/16 09:03 Creatine Kinase MB Ratio (0-3.0) White Blood Count 20.00 K/uL (4.8-10.8) Red Blood Count 2.93 M/uL (4.7-6.1) Hemoglobin 9.1 g/dL (14.0-18.0) Hematocrit 27.7 % (42-52) Mean Corpuscular Volume 94.5 fL (80-100) Mean Corpuscular Hemoglobin 31.1 pg (25-34) Mean Corpuscular Hemoglobin Concent 32.9 g/dl (32-36) Platelet Count 331 K/uL (130-400) Mean Platelet Volume 8.5 fL (7.4-10.4) Neutrophils (%) (Auto) 85.1 % Lymphocytes (%) (Auto) 3.7 % Monocytes (%) (Auto) 10.3 % Eosinophils (%) (Auto) 0.1 % Basophils (%) (Auto) 0.3 % Neutrophils # (Auto) 17.04 K/uL (1.4-6.5) Lymphocytes # (Auto) 0.73 K/uL (1.2-3.4) Monocytes # (Auto) 2.06 K/uL (0.11-0.59) Eosinophils # (Auto) 0.02 K/uL (0-0.5) Basophils # (Auto) 0.05 K/uL (0-0.2) RDW Standard Deviation 53.3 fL (36.4-46.3) RDW Coefficient of Variation 15.5 % (11.5-14.5) Immature Granulocyte % (Auto) 0.5 % Immature Granulocyte # (Auto) 0.10 K/uL (0.00-0.02) Nucleated RBC Absolute Count (auto) 0.02 K/uL (0-0) Nucleated Red Blood Cells % 0.1 % Assessment & Plan Patient started on vancomycin, levaquin, and azactam for possible pneumonia/ sepsis. BC and UC are pending. Nasal swab positive for MRSA. Vancomycin: * Patient received LD of vancomycin 2gm x 1 this am (~20 mg/kg) * Scr remains at 2.10 mg/dl today (CrCl ~29 ml/min) * Estimated kinetics: t1/2~25 hrs, ke~0.02 hr-1 * Will order a random level in the am to assist with further dosing; estimated level tomorrow am still >15 mcg/ml (goal 15-20 mcg/ml for PNA/sepsis) Azactam: * 1 gm iv q 8 hrs (appropriate for CrCl 10-30 ml/min); no change Lvq: * 750 mg iv q 48 hrs (appropriate for CrCl 20-49 ml/min); no change Pharmacy will continue to follow and will adjust dose/frequency as necessary. Thank you
--- NOTE | 2016-11-21 10:03 | CARDIOLOGY CONSULTATION ---
DATE OF CONSULTATION: 11/21/2016 REFERRING PHYSICIAN: Dr. Sixto Ledbetter. CHIEF COMPLAINT ON ADMISSION: Respiratory distress and unresponsiveness. REASON FOR CONSULTATION: Respiratory distress, CHF, CAD, and ischemic cardiomyopathy. HISTORY OF PRESENT ILLNESS: Mr. Aparicio is an 85-year-old male who is well known to the cardiology service as well as the undersigned in the outpatient setting. He resides at the care home. The patient was noted to be acutely short of breath and unresponsive by staff in the middle of the night. Typically, the patient has been utilizing CPAP. His oxygen saturation was reportedly in the 80s and he was placed on a 15-liter nonrebreather mask, at which point his SaO2 increased to 85%. He was brought to the Emergency Department for evaluation. Initially, the patient was noted to be febrile with a temperature of 38.9 degrees. centigrade. His ABG did not demonstrate CO2 retention or significant hypoxemia with oxygen supplementation. The patient is a DNR and was admitted to the ICU overnight. He has been given a dose of intravenous Lasix and has diuresed approximately 500 mL. He is sitting upright at bedside currently and is awake and alert. He denies any chest pain or unusual shortness of breath. He confirms that he wishes to be a DNR. He denies any palpitations or lightheadedness. He does not recall the events of the previous evening, which prompted his admission. REVIEW OF SYSTEMS: The pertinent positives noted above. A comprehensive 10-system review is otherwise negative. PAST MEDICAL HISTORY: 1. Chronic coronary artery disease with a history of coronary artery bypass grafting in 1981. 2. Inferior ST elevation ID with drug-eluting stent to the mid RCA x2 and circumflex in 2005. [place] to LAD patent at that time. Occluded SVG to OM noted. 3. Non-ST elevation ID, managed medically in September 2015. 4. Non-ST elevation ID, managed medically approximately 2 weeks ago in October 2016. 5. Moderate aortic stenosis. 6. Moderate aortic regurgitation. 7. Ischemic cardiomyopathy with an ejection fraction of 30%-35%. 8. Chronic kidney disease, stage IV. 9. Dyslipidemia. 10. BPH. 11. Obesity. 12. Chronic class 3 angina. 13. Diabetes type 2. 14. Obstructive sleep apnea. PAST SURGICAL HISTORY: As noted above. SOCIAL HISTORY: Former tobacco abuse, [id number] history, quitting in 1968. Currently residing at [facility]. FAMILY HISTORY: Negative for premature CAD or sudden cardiac ; however, noncontributory given the patient's advanced age. ALLERGIES: AMOXICILLIN AND AMBIEN. CURRENT OUTPATIENT MEDICATIONS: 1. Allopurinol 300 mg daily. 2. Aspirin 81 mg daily. 3. Lipitor 80 mg at bedtime. 4. Plavix 75 mg daily. 5. Proscar 5 mg daily. 6. Lasix 40 mg t.i.d. 7. Imdur 60 mg daily. 8. Lopressor 25 mg b.i.d. 9. Potassium chloride 20 mEq t.i.d. 10. Zoloft 50 mg daily. 11. Januvia 25 mg daily. 12. DuoNeb q. 6 hours as needed. 13. Nitrostat as needed. 14. MiraLax as needed. ECG ON ADMISSION: Probable sinus rhythm with left bundle branch block. ECGs demonstrated nonspecific interventricular conduction block. X-ray demonstrates bilateral severe pulmonary edema and possible pneumonia. LABORATORY DATA: White blood cell count is 18.01, hemoglobin is 9.8, and platelet count is 475. Sodium 135, potassium 5.5, chloride is 101, CO2 is 27, BUN is 59, and creatinine is 2.10. Troponin is 0.867. ABG 7.39/43/200/26/100% on BiPAP, 100% FiO2. PTT is 33.3. Telemetry demonstrates sinus rhythm, sinus tachycardia. PHYSICAL EXAMINATION: VITAL SIGNS: Temperature is 36.7 degrees centigrade, pulse 74 beats per minute and regular, respiratory rate is 20 breaths per minute, and blood pressure 94/62. He is satting 99% on 4 liters nasal cannula. GENERAL: Chronically ill, no acute distress, awake and alert. THROAT: His mucous membranes are moist. No scleral icterus. Conjunctivae pink. NECK: Supple. There is no JVD and no HJR in upright position. HEART: Regular with a 2/6 systolic ejection murmur heard best at the right second intercostal space. PULMONARY: Demonstrates diminished breath sounds at the bases with scattered crackles. No rhonchi or wheeze. ABDOMEN: Soft and nontender. No rebound or guarding. EXTREMITIES: Warm and dry with trace pedal edema bilaterally. NEUROLOGIC: Demonstrates no focal motor deficit. FINAL IMPRESSION: 1. Complex 85-year-old patient admitted with acute hypoxemic respiratory failure and an episode of unresponsiveness. Respiratory failure secondary to acute pulmonary edema and possible healthcare-associated pneumonia. 2. Chronic coronary artery disease with a history of recent non-ST elevation myocardial infarction, treated medically in October 2016 with a subsequent drop in ejection fraction down to 30%-35%. 3. History of prior coronary artery bypassing and multivessel stenting as noted above. 4. Chronic renal insufficiency, stage IV -- stable. 5. Mild hyperkalemia. 6. Moderate aortic stenosis. PLAN AND RECOMMENDATIONS: Case discussed with the child care nurse service. Beta yan therapy has been restarted. We will avoid CHARO inhibitor at this time. Lasix will be titrated to 40 mg IV twice daily to improve urine output. We will continue to follow electrolytes and renal function closely. Repeat basic metabolic panel will be performed this afternoon. We will treat hyperkalemia if necessary. Broad spectrum antibiotics will be continued. Culture is pending at this time. The patient confirms he wishes to be a DNR. We will continue to treat conservatively. I will continue to follow during hospitalization. Thank you for allowing me to take part in the care of your patient.
[2016-11-21] MEDS: FINASTERIDE 5 MG TAB PO SCH (10:09)
[2016-11-21] MEDS: ALBUT/IPRATROP 3MG/0.5MG NEB 3 ML VIAL INH SCH ×3 (10:45→19:17)
--- NOTE | 2016-11-21 11:01 | ECHOCARDIOGRAM REPORT ---
*NOTICE TO RECEIVING [employer] This information is strictly Confidential and protected under [place] law. [place] law prohibits you from making any further disclosure of this information unless further disclosure is expressly permitted by the written consent of the person to whom it pertains or is authorized by law. A general authorization for the release of medical or other information is not sufficient for this purpose. Hospital accepts no responsibility if the information is made available to any other person, INCLUDING THE PATIENT. Interpretation Summary * Name: BECKA SINGH Study Date: 11/21/2016 07:28 AM BP: 94/62 mmHg * Patient Location: .MSICU\[id number]\E106\S\1 HR: 75 * : 1930 (M/d/yyy) Gender: Male Height: 68 in * Age: 85 yrs Ethnicity: CA Weight: 229 lb * Ordering Physician: Sixto Ledbetter * Referring Physician: Jeffery Chambers * Performed By: Deedee Isaac RCS * * Reason For Study: CHF * BSA: 2.2 m2 * Compared to prior study, LV systolic function has declined. * -- Conclusions -- * Left ventricular systolic function is severely reduced. * Ejection Fraction = 20-25%. * The left ventricle is mildly dilated. * The inferior and posterior chavez are akinetic. * The remaining LV myocardial wall segments are moderately hypokinetic. * The right ventricular systolic function is mildly reduced. * The aortic valve is moderately calcified. * Moderate valvular aortic stenosis. * Moderate aortic regurgitation. * There is moderate mitral regurgitation. * The mitral regurgitant jet is eccentrically directed. * There is moderate tricuspid regurgitation. * The estimated systolic PAP is 57mmHg. Procedure Details * A complete two-dimensional transthoracic echocardiogram was performed (2D, M-mode, Doppler and color flow Doppler). Left Ventricle * The left ventricle is mildly dilated. * The left ventricular apex is not well visualized. * Ejection Fraction = 20-25%. * Left ventricular systolic function is severely reduced. * The inferior and posterior chavez are akinetic. The remaining LV myocardial wall segments are moderately hypokinetic. Right Ventricle * The right ventricular cavity size is normal (basal dimension <4.2 cm in right ventricular apical 4-chamber view). * The right ventricular systolic function is mildly reduced. Atria * The left atrium is moderately dilated. * The right atrium is mildly dilated. Mitral Valve * There is moderate mitral annular calcification. * There is moderate mitral regurgitation. * The mitral regurgitant jet is eccentrically directed. Tricuspid Valve * The tricuspid valve leaflets are thickened and/or calcified, but open well. * There is no tricuspid stenosis. * There is moderate tricuspid regurgitation. * The estimated systolic PAP is 57mmHg. Aortic Valve * The aortic valve is moderately calcified. * Moderate valvular aortic stenosis. * Moderate aortic regurgitation. Pulmonic Valve * The pulmonary valve is inadequately visualized, but the Doppler data is adequate for interpretation. * There is no pulmonic valvular stenosis. * Moderate pulmonic valvular regurgitation. Great Vessels * The aortic root is normal size. Pericardium/Pleural * There is no pericardial effusion. Great Vessels * The inferior vena cava is mildly dilated. Left Ventricular Diastolic Function * Pulse wave TDI of the anterior and posterior mitral annulas demonstrates abnormal LV relaxation MMode 2D Measurements and Calculations IVSd 1.4 cm IVSs 1.7 cm LVIDd 6.0 cm LVIDs 5.3 cm LVPWd 1.4 cm LVPWs 1.1 cm IVS/LVPW 1.0 FS 11.9 % EDV(Teich) 179.6 ml ESV(Teich) 134.4 ml EF(Teich) 25.2 % EDV(cubed) 215.3 ml ESV(cubed) 147.5 ml EF(cubed) 31.5 % % IVS thick 22.8 % % LVPW thick -18.88 % LV mass(C)d 382.0 grams LV mass(C)dI 176.4 grams/m\S\2 LV mass(C)s 323.2 grams LV mass(C)sI 149.3 grams/m\S\2 SV(Teich) 45.2 ml SI(Teich) 20.9 ml/m\S\2 SV(cubed) 67.8 ml SI(cubed) 31.3 ml/m\S\2 Ao root diam 3.8 cm Ao root area 11.6 cm\S\2 LA dimension 5.5 cm LA/Ao 1.4 LVOT diam 2.0 cm LVOT area 3.3 cm\S\2 LVAd ap4 40.0 cm\S\2 LVLd ap4 8.1 cm EDV(MOD-sp4) 164.0 ml EDV(sp4-el) 167.0 ml LVAs ap4 34.0 cm\S\2 LVLs ap4 7.8 cm ESV(MOD-sp4) 130.5 ml ESV(sp4-el) 125.5 ml EF(MOD-sp4) 20.4 % EF(sp4-el) 24.9 % LVAd ap2 35.5 cm\S\2 LVLd ap2 7.6 cm EDV(MOD-sp2) 144.5 ml EDV(sp2-el) 141.1 ml LVAs ap2 30.2 cm\S\2 LVLs ap2 7.0 cm ESV(MOD-sp2) 113.8 ml ESV(sp2-el) 110.2 ml EF(MOD-sp2) 21.2 % EF(sp2-el) 21.9 % LVLd %diff -70 % EDV(MOD-bp) 160.7 ml LVLs %diff -11.02 % ESV(MOD-bp) 127.6 ml EF(MOD-bp) 20.6 % SV(MOD-sp4) 33.5 ml SI(MOD-sp4) 15.5 ml/m\S\2 SV(MOD-sp2) 30.7 ml SI(MOD-sp2) 14.2 ml/m\S\2 SV(MOD-bp) 33.1 ml SI(MOD-bp) 15.3 ml/m\S\2 SV(sp4-el) 41.6 ml SI(sp4-el) 19.2 ml/m\S\2 SV(sp2-el) 31.0 ml SI(sp2-el) 14.3 ml/m\S\2 Doppler Measurements and Calculations MV E max isidoro 157.7 cm/sec MV A max isidoro 92.3 cm/sec MV E/A 1.7 MV P1/2t max isidoro 166.0 cm/sec MV P1/2t 60.5 msec MVA(P1/2t) 3.6 cm\S\2 MV dec slope 803.2 cm/sec\S\2 MV dec time 0.18 sec Ao V2 max 256.2 cm/sec Ao max PG 26.4 mmHg Ao max PG (full) 23.2 mmHg Ao V2 mean 187.7 cm/sec Ao mean PG 15.9 mmHg Ao V2 VTI 61.0 cm JOSS(V,A) 1.1 cm\S\2 JOSS(V,D) 1.1 cm\S\2 AI max isidoro 319.1 cm/sec AI max PG 40.7 mmHg AI dec slope 158.6 cm/sec\S\2 AI P1/2t 589.4 msec LV V1 max PG 3.2 mmHg LV V1 max 90.1 cm/sec MR max isidoro 471.9 cm/sec MR max PG 89.1 mmHg SV(Ao) 709.5 ml SI(Ao) 327.7 ml/m\S\2 PA V2 max 83.6 cm/sec PA max PG 2.8 mmHg PI max isidoro 239.5 cm/sec PI max PG 23.0 mmHg PI dec slope 318.7 cm/sec\S\2 PI P1/2t 220.2 msec TR max isidoro 345.5 cm/sec
[2016-11-21] MEDS ORDERED: FUROSEMIDE INJ 40 MG in SYRINGE 0 ML IV ONE (12:00)
--- NOTE | 2016-11-21 12:13 | Pharmacy Progress Note ---
Glycemic Control Intl Consult Date of Service November 21, 2016. Scope Glycemic Pharmacist consulted by Dr Ledbetter on 11/21/16 for glycemic control and to write orders per [facility] inpatient glycemic control protocol Objective Weight (Kilograms): 102.000 Accuchecks BSG (last 24hrs): Test 11/20/16 22:24 11/21/16 03:16 11/21/16 03:22 11/21/16 05:53 Random Glucose 208 mg/dl (70-99) 106 mg/dl (70-99) Bedside Glucose 108 mg/dl (70-99) 149 mg/dl (70-99) Laboratory Data (last 24hrs) HbA1c 7.3% on 10/11/16 Recent Pertinent Medications Outpatient Anti-diabetic Regimen: * Glucotrol XL 15mg with breakfast * Januvia 50mg PO daily in AM The patient is currently receiving: * Basal insulin: Lantus 10 units every 24 hours x 1 dose * Correctional Insulin: Novolog Correction per scale ACHS Goal Range: Low 140 mg/dL - High 180 mg/dL Correction Factor: 25 mg/dL/unit * Prandial insulin: Per carb ratio of 1 unit per -- grams CHO consumed * Oral Agents: on hold for admission Risk Factors for Insulin Resistance: * Infection * Volume overload --> leads to erratic insulin absorption Assessment & Plan ASSESSMENT: * 85yo T2DM male known to pharmacy from previous admission/glycemic consults, most recently 11/07/16 * Pt with excellent outpatient control on oral agents * Oral agents are not recommended for inpatient use d/t drug interactions, changing PO intake, and difficulty titrating for acute hyper/hypoglycemia. ADA recommends re-initiating outpatient oral agents 1-2 days prior to discharge if/ when appropriate if they were held on admission. * Will hold oral agents for admission and utilize SQ basal bolus insulin regimen which is the recommended regimen for inpatient glycemic control. * Will * Basal insulin may not be needed since pt NPO * ADA & AACE recommend a goal blood sugar range 140-180 mg/dl for the majority of critically ill & non-critically ill patients. However, more stringent targets may be selected in individual cases. PLAN FOR INPATIENT GLYCEMIC CONTROL: Hold oral agents and initiate weight based insulin dosing for insulin melanie patient and titrate based on BSG trends. * Hold outpatient oral diabetes medications * Basal insulin * Lantus 10 units SQ x 1 dose this AM for hyperglycemia on admission * Will re-assess need for additional basal insulin on 11/21 as pt is NPO * Bolus insulin * NovoLog per scale ACHS or Q6hrs while NPO * Goal Range: Low 140 mg/dL - High 180 mg/dL * Correction Factor: 25 mg/dL/unit * Nutritional / Prandial insulin per carb ratio of 1 unit per 10 grams CHO consumed * Please note that the plan above was derived based on current level of insulin resistance and hospital stress. These recommendations are appropriate for inpatient admission only. Plan of care upon discharge will need to be reassessed to avoid potential outpatient hypo/hyperglycemia. Thank you.
[2016-11-21] MEDS: FUROSEMIDE INJ 40 MG in SYRINGE 0 ML IV SCH (16:37)
[2016-11-21 16:38] LABS: BUN/CREATININE RATIO 28.4 (10-20); CALCIUM 8.3 mg/dl (8.5-10.1); CREATININE 2.1 mg/dl (0.60-1.40); POTASSIUM 4.6 mmol/L (3.5-5.1)
[2016-11-21] MEDS: HEPARIN 25,000 UNIT/500ML D5W 500 ML IV PRN (16:48)
[2016-11-21 17:01] LABS: PARTIAL THROMBOPLASTIN RATIO 1.4
[2016-11-21] MEDS: ATORVASTATIN 40 MG TAB PO SCH (20:58)
[2016-11-21 23:59] LABS: PARTIAL THROMBOPLASTIN RATIO 2.1
[2016-11-22] VITALS (16 sets, daily range): BP systolic 104–117; BP diastolic 56–83; PULSE 74–86; TEMP 35.8–36.6; O2SAT 91–98
[2016-11-22] MEDS: INSULIN ASPART 100 UNITS/ML 3 ML PEN SC SCH ×5 (05:56→21:00)
[2016-11-22] MEDS: AZTREONAM IV 1,000 MG in DEXTROSE 5% 100ML IV SCH (05:57)
[2016-11-22 06:12] LABS: BASO % 0.2 %; BASO ABS # 0.03 K/uL (0-0.2); COMPLETE YES; EOS % 3.2 %; HEMATOCRIT 28.2 % (42-52); IG% 0.6 %; LYMPH % 8.1 %; LYMPH ABS # 1.21 K/uL (1.2-3.4); MEAN CELL VOLUME 91.3 fL (80-100); MEAN CORPUSCULAR HEMOGLOBIN 31.1 pg (25-34); MEAN PLATELET VOLUME 8.5 fL (7.4-10.4); MONO % 11.3 %; NEUT % 76.6 %; PLATELET COUNT 331 K/uL (130-400); RED BLOOD COUNT 3.09 M/uL (4.7-6.1)
[2016-11-22 06:38] LABS: BUN/CREATININE RATIO 29.7 (10-20); MAGNESIUM 2.5 mg/dl (1.8-2.4); POTASSIUM 3.7 mmol/L (3.5-5.1)
[2016-11-22] MEDS: ALBUT/IPRATROP 3MG/0.5MG NEB 3 ML VIAL INH SCH (07:13)
--- NOTE | 2016-11-22 07:18 | DIAGNOSTIC IMAGING REPORT ---
CHEST ONE VIEW PORTABLE CLINICAL HISTORY: Pulmonary edema COMPARISON STUDY: 11/20/2016 FINDINGS: The heart is enlarged. There are postsurgical changes of a midline sternotomy. There are persistent extensive bilateral pulmonary airspace opacities. Small pleural effusions are suspected.[ IMPRESSION: Persistent cardiomegaly and extensive bilateral pulmonary airspace opacities. While likely representing pulmonary edema, a multifocal pneumonitis could appear similar. Electronically signed by: Destin Burdick M.D. 11/22/2016 7:17 AM Dictated Date/Time: 11/22/2016 7:15 AM
[2016-11-22] MEDS ORDERED: VANCOMYCIN INJ 1,500 MG in SODIUM CHLORIDE 0.9% 500ML 500 ML IV ONE (08:00)
[2016-11-22] MEDS: ASPIRIN 81 MG ECTAB PO SCH (08:31)
[2016-11-22] MEDS: FUROSEMIDE INJ 40 MG in SYRINGE 0 ML IV SCH ×2 (08:31→17:05)
[2016-11-22] MEDS: ALLOPURINOL 300 MG TAB PO SCH (08:32)
[2016-11-22] MEDS: CLOPIDOGREL BISULFATE 75 MG TAB PO SCH (08:32)
[2016-11-22] MEDS: FINASTERIDE 5 MG TAB PO SCH (08:32)
[2016-11-22] MEDS: SENNA 8.6 MG TAB PO SCH (08:32)
[2016-11-22] MEDS: SERTRALINE HCL 50 MG TAB PO SCH (08:32)
[2016-11-22 08:38] LABS: INR 1.2 (0.9-1.1)
[2016-11-22] MEDS ORDERED: METOPROLOL TARTRATE 25 MG TAB PO SCH (09:00)
--- NOTE | 2016-11-22 09:25 | Cardiology Follow-Up ---
Subjective General Date of Service: November 22, 2016. Chief Complaint: follow up shortness of breath Pt evaluation today including: conversation w/ patient, physical exam, conversation w/ customer service consultant History of Present Illness The patient is a 85 year old male seen in cardiology follow up with Dr Gonzalez having performed the initial consultation yesterday. Pt seen int ICU room 106. He is sitting upright in the bedside chair. He is breathing better than on presentation but still SOB. Adams is in place. UF heparin infusion has been added for climbing troponin level. Allergies Coded Allergies: Zolpidem (Verified Allergy, Severe, SOB, MUSCLES "LOCK UP" PER [facility], ) DELIRIUM. Confusion. Insomnia. Insulin Aspart (Verified Adverse Reaction, Intermediate, REDDENED RASH ALL OVER BODY, 11/03/16) Insulin Glargine (Verified Adverse Reaction, Intermediate, REDDENED RASH ALL OVER BODY, 11/03/16) Amoxicillin (Verified Adverse Reaction, Unknown, NIGHTMARES, 11/03/16) Social History Smoking Status: Unknown if Ever Smoked Hx Tobacco Use In Past Year?: No Hx Alcohol Use - Type And Amou: No Hx Substance Use - Type And Am: No Problem List Medical Problems: (1) Acute renal failure Status: Acute (2) Altered mental status Status: Acute (3) Elevated troponin Status: Acute (4) Elevated TSH Status: Acute (5) Generalized weakness Status: Acute (6) Hyperkalemia Status: Acute (7) Hypoglycemia Status: Acute (8) Hypoxemia Status: Acute (9) Pulmonary edema Status: Acute (10) Sepsis Status: Acute (11) Swelling of left lower extremity Status: Acute (12) Urinary tract infection Status: Acute Physical Exam Vital Signs Last Vital Signs Documentation Date Time Temp Pulse Resp B/P Pulse Ox O2 Delivery O2 Flow Rate FiO2 11/22/16 07:13 78 21 97 BiPAP/CPAP 30 11/22/16 06:01 115/68 11/22/16 04:01 36.5 11/21/16 23:17 4.0 Physical Exam Constitutional: Level of Distress: NAD, chronically ill Neck: supple Lungs: Auscultation: pertinent finding (bilateral rales Left worse than right ) Cardiovascular: Heart Auscultation: RRR, no murmurs Extremities: no edema Neurologic: Gait & Station: pertinent finding (no focal deficits ) Assessment and Plan Assessment and Plan Impression: 1. Acute on chronic systolic heart failure, NSTEMI 2. 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 3 hospitalizations 06/2016 and twice this month, and LVEF has declined further on each measurements, and is now down to the 20-25% range. Has CKD, creatine of 2 compared to peak of 5 earlier this month. Continue furosemide IV and heparin as well as ASA, plavix, metoprolol. Pt DNR, elects for conservative management and I would predict that cath would be of low yield and that CAD prompting medical treatment would be found regardless. Prognosis is poor. Laboratory Results Last 24 Hours Test 11/21/16 12:40 11/21/16 15:59 11/21/16 16:35 11/21/16 19:57 Bedside Glucose 136 mg/dl Sodium Level 134 mmol/L Potassium Level 4.6 mmol/L Chloride Level 99 mmol/L Carbon Dioxide Level 26 mmol/L Anion Gap 9.0 mmol/L Blood Urea Nitrogen 60 mg/dl Creatinine 2.10 mg/dl Est Creatinine Clear Calc Drug Dose 28.7 ml/min Estimated GFR () 31.8 Estimated GFR (Non- 27.5 BUN/Creatinine Ratio 28.4 Random Glucose 125 mg/dl Lactic Acid Level 1.5 mmol/L Calcium Level 8.3 mg/dl Activated Partial Thromboplast Time 37.3 SECONDS 103.5 SECONDS Partial Thromboplastin Ratio 1.4 4.0 Test 11/21/16 23:35 11/22/16 00:14 11/22/16 02:10 11/22/16 05:54 Activated Partial Thromboplast Time 55.1 SECONDS 76.7 SECONDS Partial Thromboplastin Ratio 2.1 3.0 Bedside Glucose 128 mg/dl 134 mg/dl Test 11/22/16 05:55 11/22/16 08:06 White Blood Count 15.00 K/uL Red Blood Count 3.09 M/uL Hemoglobin 9.6 g/dL Hematocrit 28.2 % Mean Corpuscular Volume 91.3 fL Mean Corpuscular Hemoglobin 31.1 pg Mean Corpuscular Hemoglobin Concent 34.0 g/dl Platelet Count 331 K/uL Mean Platelet Volume 8.5 fL Neutrophils (%) (Auto) 76.6 % Lymphocytes (%) (Auto) 8.1 % Monocytes (%) (Auto) 11.3 % Eosinophils (%) (Auto) 3.2 % Basophils (%) (Auto) 0.2 % Neutrophils # (Auto) 11.50 K/uL Lymphocytes # (Auto) 1.21 K/uL Monocytes # (Auto) 1.69 K/uL Eosinophils # (Auto) 0.48 K/uL Basophils # (Auto) 0.03 K/uL RDW Standard Deviation 55.0 fL RDW Coefficient of Variation 16.5 % Immature Granulocyte % (Auto) 0.6 % Immature Granulocyte # (Auto) 0.09 K/uL Sodium Level 134 mmol/L Potassium Level 3.7 mmol/L Chloride Level 98 mmol/L Carbon Dioxide Level 25 mmol/L Anion Gap 11.0 mmol/L Blood Urea Nitrogen 59 mg/dl Creatinine 2.00 mg/dl Est Creatinine Clear Calc Drug Dose 30.1 ml/min Estimated GFR () 33.8 Estimated GFR (Non- 29.1 BUN/Creatinine Ratio 29.7 Random Glucose 123 mg/dl Calcium Level 8.0 mg/dl Phosphorus Level 4.0 mg/dl Magnesium Level 2.5 mg/dl Pro-B-Type Natriuretic Peptide 87845 pg/ml Random Vancomycin Level 14.2 mcg/ml Prothrombin Time 13.0 SECONDS Prothromb Time International Ratio 1.2
--- NOTE | 2016-11-22 09:56 | Pharmacy Progress Note ---
Pharmacy Abx Dose Progress Nt Date of Service November 22, 2016. Pharmacy Dosing Scope The patient is currently receiving the following antimicrobial agents per Pharmacy consult: * VANCOMYCIN * AZTREONAM * LEVOFLOXACIN Objective Height (Feet): 5 Height (Inches): 8.00 Weight (Kilograms): 98.300 Vital Signs (Past 12Hrs) Vital Signs Past 12 Hours Date Time Temp Pulse Resp B/P Pulse Ox O2 Delivery O2 Flow Rate FiO2 11/22/16 08:00 Nasal Cannula 4.0 11/22/16 08:00 36.3 79 21 114/63 95 Nasal Cannula 4.0 11/22/16 07:13 78 21 97 BiPAP/CPAP 30 11/22/16 06:01 78 28 115/68 96 BiPAP 30 11/22/16 04:01 36.5 80 26 111/64 97 BiPAP 30 11/22/16 04:00 97 BiPAP 30 11/22/16 02:01 79 22 113/65 95 BiPAP 30 11/22/16 00:16 35.8 86 28 113/63 95 BiPAP 30 11/21/16 23:59 97 BiPAP 30 11/21/16 23:45 90 94 30 11/21/16 23:17 36.4 86 25 124/68 98 4.0 11/21/16 22:17 36.4 86 28 127/82 99 4.0 11/21/16 22:02 84 29 129/77 96 Nasal Cannula 4.0 Lab Results (24Hrs) Test 11/21/16 15:59 11/22/16 00:14 11/22/16 02:10 11/22/16 05:54 Sodium Level 134 mmol/L (136-145) Potassium Level 4.6 mmol/L (3.5-5.1) Chloride Level 99 mmol/L (98-107) Carbon Dioxide Level 26 mmol/L (21-32) Anion Gap 9.0 mmol/L (3-11) Blood Urea Nitrogen 60 mg/dl (7-18) Creatinine 2.10 mg/dl (0.60-1.40) Est Creatinine Clear Calc Drug Dose 28.7 ml/min Estimated GFR () 31.8 Estimated GFR (Non- 27.5 BUN/Creatinine Ratio 28.4 (10-20) Random Glucose 125 mg/dl (70-99) Lactic Acid Level 1.5 mmol/L (0.4-2.0) Calcium Level 8.3 mg/dl (8.5-10.1) Bedside Glucose 128 mg/dl (70-99) 134 mg/dl (70-99) Activated Partial Thromboplast Time 76.7 SECONDS (21.0-31.0) Partial Thromboplastin Ratio 3.0 Test 11/22/16 05:55 11/22/16 08:06 White Blood Count 15.00 K/uL (4.8-10.8) Red Blood Count 3.09 M/uL (4.7-6.1) Hemoglobin 9.6 g/dL (14.0-18.0) Hematocrit 28.2 % (42-52) Mean Corpuscular Volume 91.3 fL (80-100) Mean Corpuscular Hemoglobin 31.1 pg (25-34) Mean Corpuscular Hemoglobin Concent 34.0 g/dl (32-36) Platelet Count 331 K/uL (130-400) Mean Platelet Volume 8.5 fL (7.4-10.4) Neutrophils (%) (Auto) 76.6 % Lymphocytes (%) (Auto) 8.1 % Monocytes (%) (Auto) 11.3 % Eosinophils (%) (Auto) 3.2 % Basophils (%) (Auto) 0.2 % Neutrophils # (Auto) 11.50 K/uL (1.4-6.5) Lymphocytes # (Auto) 1.21 K/uL (1.2-3.4) Monocytes # (Auto) 1.69 K/uL (0.11-0.59) Eosinophils # (Auto) 0.48 K/uL (0-0.5) Basophils # (Auto) 0.03 K/uL (0-0.2) RDW Standard Deviation 55.0 fL (36.4-46.3) RDW Coefficient of Variation 16.5 % (11.5-14.5) Immature Granulocyte % (Auto) 0.6 % Immature Granulocyte # (Auto) 0.09 K/uL (0.00-0.02) Sodium Level 134 mmol/L (136-145) Potassium Level 3.7 mmol/L (3.5-5.1) Chloride Level 98 mmol/L (98-107) Carbon Dioxide Level 25 mmol/L (21-32) Anion Gap 11.0 mmol/L (3-11) Blood Urea Nitrogen 59 mg/dl (7-18) Creatinine 2.00 mg/dl (0.60-1.40) Est Creatinine Clear Calc Drug Dose 30.1 ml/min Estimated GFR () 33.8 Estimated GFR (Non- 29.1 BUN/Creatinine Ratio 29.7 (10-20) Random Glucose 123 mg/dl (70-99) Calcium Level 8.0 mg/dl (8.5-10.1) Phosphorus Level 4.0 mg/dl (2.5-4.9) Magnesium Level 2.5 mg/dl (1.8-2.4) Pro-B-Type Natriuretic Peptide 14229 pg/ml (0-1800) Random Vancomycin Level 14.2 mcg/ml Prothrombin Time 13.0 SECONDS (9.0-12.0) Prothromb Time International Ratio 1.2 (0.9-1.1) Micro Results Date/Time Source Procedure Growth Status 11/21/16 03:22 Blood Blood Culture - Preliminary NO GROWTH TO DATE. Resulted 11/21/16 03:22 Blood Blood Culture - Preliminary NO GROWTH TO DATE. Resulted 11/21/16 01:10 Nasal MRSA DNA Surveillance Screen - Final Specimen Positive for MRSA by DNA Probe Complete 11/22/16 00:00 Sputum Expectorated Sputum Gram Stain - Final Resulted 11/22/16 00:00 Sputum Expectorated Sputum Sputum Culture Pending Resulted 11/20/16 23:20 Urine,Catheterized Urine Culture - Preliminary NO GROWTH - LESS THAN 1,000 COLONIES/... Resulted Risk Factors for Resistance * Resident in a senior care or extended-care facility * Hospitalization for 48 hours or more within the past 90 days * Antimicrobial use within the last 90 days: * AMOXICILLIN * CEFTRIAXONE * AZTREONAM * PIPERACILLIN/TAZOBACTAM * VANCOMYCIN Assessment & Plan Assessment 85 year old male receiving VANCOMYCIN, AZTREONAM, AND LEVOFLOXACIN for treatment of sepsis secondary to pneumonia. Day # 3/7 of antimicrobial therapy Plan Vancomycin IV: * Vanco level of 14.2 mcg/mL is sub-therapeutic and indicates time for a re-dose * Vancomycin 1500 mg IV x1 dose now * Goal trough level for pulmonary infections : 15 to 20 mcg/mL * A random level is ordered for: 11/23/16 Aztreonam IV: * Target dose 2000mg IV every 8 hours * dose adj for CrCl 10-30mL/min to 1000mg IV every 8 hours * was chosen secondary to PCN allergy, however listed in [facility] as amoxicillin with a reaction of nightmares * may be able to transition to Blactam if desired (has tolerated during prior admissions) LEVOFLOXACIN IV: * Target dose 750mg IV every 24 hours * dose adj for CrCl 20-50mL/min to 750mg IV/PO q48 hours * QTc was initially prolonged, however has decreased since admission OF NOTE: * if aspiration is in the differential, the above regimen does not cover anaerobes. * await speech evaluation Pharmacy will continue to follow and will adjust dose/frequency as necessary. Thank you.
--- NOTE | 2016-11-22 10:25 | Critical Care Progress Note ---
Critical Care Progress Note Date of Service November 22, 2016. ICU Day ICU Day Number: [address] Lopez Subjective He was transferred to [facility] because he was found unresponsive by staff. He was in hypoxic respiratory failure likely due to flash pulmonary edema. He was placed on BIPAP and given lasix with significnat improvement. Over the course of the day yesterday he increased troponin to 1.2 and I started IV heparin on top of plvix and ASA + his high dose statin. This am he feels better. he is off BIPAP on 4 lit O2/min and wanted to use the bedside comode. He denied chest pain nausea or dyspnea. HR is 80s/min Per cardiology the patient had a recent NSTEMI on the prior visit with troponin up to 9. He is a poor candidate for any intervention given his kidney status and prognosis is deemed poor. For now we are medically treating him for NSTEMI and pulmonary edema/CHF with hypoxemic respiratory failure. CXR this am shows no significant imoro Objective General Appearance: no apparent distress Head: normocephalic, atraumatic Eyes: no discharge, sclerae normal, conjunctivae normal ENT: no pharyngeal edema. Neck: normal range of motion, supple Respiratory: crackles bilaterally Cardiovasular: regular rate/rhythm, systolic murmur (grade 1-2/6), other ( sternotomy clean scar in midline) Abdomen: non tender, normal bowel sounds, no rebound, no guarding Genitourinary - Male: external genitalia normal Back: normal inspection, no CVA tenderness Upper Extremities: no edema, other (there is no edema in the LE but he has skin changes of vascular in sufficiency) Lower Extremities: no edema, other (skin changes of vascular in sufficicency) Pulses: radial (R) (1+), radial (L), dorsalis pedis (R) (1+), dorsalis pedis (L ) (1+) Neuro: alert, global weakness (motor power is 4/5 but no focal deficits) Current SOFA Score SOFA Score Response (Comments) Value PaO2/FiO2 (mmHg) < 400 1 SaO2 / FIO2 221 - 301 1 Platelets (x10) > 150 0 Bilirubin (mg/dL) < 1.2 0 Vernon Coma Score 15 0 Level of Hypotension No Hypotension 0 Creatinine (mg/dL) 2.0 - 3.4 2 Total 4 Previous SOFA Scores 4 Assessment & Plan 85 yo male with known history of coronary artery disease HFeEF, s/p stent and CABG in 1982, FILIBERTO, smoking history and ? COPD admitted with (1) acute on chronic hypoxic respiratory failure necessitating NIPPV with a BIPAP. likely due to (2) Flash pulmonary edema . It is less likely that he aspirates. Swallow eval is in progress. Pulm edema is likely precipitated by a (3) NSTEMI, the evidence for which is in the rising troponin (4) this all is on a backgroud of CHF specifically HFrFH or acute on chronic systolic heart failure (5) FILIBERTO and (6) CKD are important comorbidities 1- neurologic restart sertraline 2- respiratory decrease FiO2 to target SPO2 >94% checked PFT and he is 112% of prediscted for FEV1 based on PFTs from 10/28/2016. would not offer BD that increase HR. increased lasix to 40 mg IV BID - Since his I/O is still positive will add another dose midday today FILIBERTO continue the BIPAP pressure setting 06/02 per sleep study done 04/08/2016 over night and PRN for respiratory distress in the am 3- cardiovascular lasix BID 40 mg IV. one extra dose today continue plavix and aspirin a IV heparin x 48-72 hours. Daily ECG and if he develops CP trend troponin until it peaks cardiology is following increase metoprolol to 25 mg daily, his home dose continue atorvastatin 80 mg daily continue imdur given K level would refrain from CHARO I at this point but may use hydralazine if patients BP increases 4- GI diabetic pantoprazole 40 mg daily on board 5- renal Increase lasix toTID today [place] [address]+ and his I/O is 874 ml positive despite the lasix UO is 0.57ml/Kg BW-hr 1 liter of fluid restriction daily continue finasteride ID for 3 days would use vancomycin, levaquin and aztreonam. Sputum culture showed polymicrobial pattern on G stain await culture U Cx 1000 microorganism /HPF and is as such non significant growth. blood cultures peding 7- DVT prophyalxis on IV heparin. 8- endocrine insulin sliding scale with phramacy consult Sugar <180 Lines peripheral IVs would remove lujan once pt is stable. no central lines Patient is critically ill and needs monitoring in the MICU until he is back to baseline patient is DNR / DNI total CC time is 42 minutes Consults & Procedures Consultants: Tobias Gonzalez and Alvarez from cardiology Procedures: none Data Medications: Current Inpatient Medications Medications (Trade) Dose Ordered Sig/Vijay Route Start Time Stop Time Status Last Admin Dose Admin Vancomycin HCl (Consult) 1 ea UD PRN N/A 11/21/16 02:34 12/21/16 02:33 Insulin Aspart (novoLOG ASPART) SLIDING SCALE If C... Q6 SC 11/21/16 03:00 12/21/16 02:59 Glucose (Glucose 40% Gel) 15-30 GRAMS 15 GRAMS... UD PRN PO 11/21/16 01:00 12/21/16 00:59 Glucose (Glucose Chew Tab) 4-8 Tablets 4 Tabl... UD PRN PO 11/21/16 01:00 12/21/16 00:59 Dextrose (Dextrose 50% 50ML Syringe) 25-50ML OF 50% DW IV FOR... UD PRN IV 11/21/16 01:00 12/21/16 00:59 Glucagon (Glucagon Inj) 1 mg UD PRN SQ 11/21/16 01:00 12/21/16 00:59 Miscellaneous Information (Consult Glycemic Management Pharmacy) 1 ea UD PRN N/A 11/21/16 03:03 12/21/16 03:02 Allopurinol (Zyloprim Tab) 300 mg QAM PO 11/21/16 09:00 12/21/16 08:59 11/22/16 08:32 300 MG Aspirin (Ecotrin Tab) 81 mg QAM PO 11/21/16 09:00 12/21/16 08:59 11/22/16 08:31 81 MG Atorvastatin Calcium (Lipitor Tab) 80 mg HS PO 11/21/16 21:00 12/21/16 20:59 11/21/16 20:58 80 MG Clopidogrel Bisulfate (plAVix TAB) 75 mg QAM PO 11/21/16 09:00 12/21/16 08:59 11/22/16 08:32 75 MG Senna (Senokot Tab) 8.6 mg QAM PO 11/21/16 09:00 12/21/16 08:59 11/22/16 08:32 8.6 MG Sertraline HCl (Zoloft Tab) 50 mg QAM PO 11/21/16 09:00 12/21/16 08:59 11/22/16 08:32 50 MG Acetaminophen 650 mg 650 mg Q4H PRN PO 11/21/16 01:15 12/21/16 01:14 Pantoprazole Sodium/Syringe (Protonix Inj/ Syringe) 10 ml @ 5 mls/min DAILY@1100 IV 11/21/16 11:00 12/21/16 10:59 11/21/16 08:21 5 MLS/MIN Aztreonam (Consult) 1 ea UD PRN N/A 11/21/16 02:45 12/21/16 02:44 Levofloxacin 1 ea 1 ea UD PRN N/A 11/21/16 02:45 12/21/16 02:44 Levofloxacin 750 mg/Prmx 150 ml @ 100 mls/hr Q48H IV 11/22/16 22:00 11/27/16 21:59 Aztreonam/Dextrose (Azactam IV/D5 100ml) 110 ml @ 110 mls/hr Q8H IV 11/21/16 06:00 11/28/16 05:59 11/22/16 05:57 110 MLS/HR Finasteride (Proscar Tab) 5 mg QAM PO 11/21/16 09:00 12/21/16 08:59 11/22/16 08:32 5 MG Metoprolol Tartrate (Lopressor Tab) 12.5 mg QAM PO 11/22/16 09:00 12/22/16 08:59 11/22/16 08:32 12.5 MG Albuterol/ Ipratropium 3 ml 3 ml QIDR INH 11/21/16 12:00 12/21/16 11:59 11/22/16 07:13 3 ML Furosemide 40 mg/ Syringe 4 ml @ 4 mls/min BID17 IV 11/21/16 17:00 12/21/16 16:59 11/22/16 08:31 4 MLS/MIN Heparin Sodium/ Dextrose 500 ml @ 29 mls/hr [id number] PRN IV 11/21/16 16:30 12/21/16 16:29 11/21/16 16:48 29 MLS/HR Vancomycin HCl 1500 mg/Sodium Chloride 530 ml @ 200 mls/hr TODAY@0800 ONCE IV 11/22/16 08:00 11/22/16 10:38 11/22/16 08:31 200 MLS/HR Furosemide/Syringe (Lasix Inj/ Syringe) 4 ml @ 4 mls/min TODAY@1200 IV 11/22/16 12:00 11/22/16 14:00 I & O: 24-Hour Column 11/22/16 08:00 Intake Total 2044 ml Output Total 1500 ml Balance 544 ml Vital Signs: Date Time Temp Pulse Resp B/P Pulse Ox O2 Delivery O2 Flow Rate FiO2 11/22/16 08:00 Nasal Cannula 4.0 11/22/16 08:00 36.3 79 21 114/63 95 Nasal Cannula 4.0 11/22/16 07:13 78 21 97 BiPAP/CPAP 30 11/22/16 06:01 78 28 115/68 96 BiPAP 30 11/22/16 04:01 36.5 80 26 111/64 97 BiPAP 30 11/22/16 04:00 97 BiPAP 30 11/22/16 02:01 79 22 113/65 95 BiPAP 30 11/22/16 00:16 35.8 86 28 113/63 95 BiPAP 30 11/21/16 23:59 97 BiPAP 30 11/21/16 23:45 90 94 30 11/21/16 23:17 36.4 86 25 124/68 98 4.0 11/21/16 22:17 36.4 86 28 127/82 99 4.0 11/21/16 22:02 84 29 129/77 96 Nasal Cannula 4.0 11/21/16 21:17 36.4 87 25 129/70 98 4.0 11/21/16 20:47 36.3 87 27 133/74 98 4.0 11/21/16 20:17 36.4 81 26 129/70 98 4.0 11/21/16 20:01 36.9 81 23 121/66 97 Nasal Cannula 4.0 11/21/16 20:00 Nasal Cannula 4.0 11/21/16 20:00 36.5 82 26 121/66 97 4.0 11/21/16 19:56 36.7 83 29 116/68 97 11/21/16 19:54 36.7 82 28 116/68 98 4.0 11/21/16 19:46 36.9 84 23 119/60 97 4.0 11/21/16 19:17 82 24 97 Nasal Cannula 4.0 11/21/16 18:13 36.8 80 24 96 Nasal Cannula 4.0 11/21/16 16:48 76 24 107/57 95 Nasal Cannula 2.0 11/21/16 16:00 100 BiPAP 100 11/21/16 15:34 72 98 35 11/21/16 15:32 72 26 98 BiPAP/CPAP 35 11/21/16 14:12 69 20 100 BiPAP 11/21/16 12:00 68 22 106/62 100 BiPAP 11/21/16 12:00 100 BiPAP 100 11/21/16 10:45 74 100 40 11/21/16 10:45 74 17 100 BiPAP/CPAP 40 11/21/16 10:17 70 22 114/69 99 BiPAP Laboratory Results: Last 24 Hours Test 11/21/16 12:40 11/21/16 15:59 11/21/16 16:35 11/21/16 19:57 Bedside Glucose 136 mg/dl Sodium Level 134 mmol/L Potassium Level 4.6 mmol/L Chloride Level 99 mmol/L Carbon Dioxide Level 26 mmol/L Anion Gap 9.0 mmol/L Blood Urea Nitrogen 60 mg/dl Creatinine 2.10 mg/dl Est Creatinine Clear Calc Drug Dose 28.7 ml/min Estimated GFR () 31.8 Estimated GFR (Non- 27.5 BUN/Creatinine Ratio 28.4 Random Glucose 125 mg/dl Lactic Acid Level 1.5 mmol/L Calcium Level 8.3 mg/dl Activated Partial Thromboplast Time 37.3 SECONDS 103.5 SECONDS Partial Thromboplastin Ratio 1.4 4.0 Test 11/21/16 23:35 11/22/16 00:14 11/22/16 02:10 11/22/16 05:54 Activated Partial Thromboplast Time 55.1 SECONDS 76.7 SECONDS Partial Thromboplastin Ratio 2.1 3.0 Bedside Glucose 128 mg/dl 134 mg/dl Test 11/22/16 05:55 11/22/16 08:06 White Blood Count 15.00 K/uL Red Blood Count 3.09 M/uL Hemoglobin 9.6 g/dL Hematocrit 28.2 % Mean Corpuscular Volume 91.3 fL Mean Corpuscular Hemoglobin 31.1 pg Mean Corpuscular Hemoglobin Concent 34.0 g/dl Platelet Count 331 K/uL Mean Platelet Volume 8.5 fL Neutrophils (%) (Auto) 76.6 % Lymphocytes (%) (Auto) 8.1 % Monocytes (%) (Auto) 11.3 % Eosinophils (%) (Auto) 3.2 % Basophils (%) (Auto) 0.2 % Neutrophils # (Auto) 11.50 K/uL Lymphocytes # (Auto) 1.21 K/uL Monocytes # (Auto) 1.69 K/uL Eosinophils # (Auto) 0.48 K/uL Basophils # (Auto) 0.03 K/uL RDW Standard Deviation 55.0 fL RDW Coefficient of Variation 16.5 % Immature Granulocyte % (Auto) 0.6 % Immature Granulocyte # (Auto) 0.09 K/uL Sodium Level 134 mmol/L Potassium Level 3.7 mmol/L Chloride Level 98 mmol/L Carbon Dioxide Level 25 mmol/L Anion Gap 11.0 mmol/L Blood Urea Nitrogen 59 mg/dl Creatinine 2.00 mg/dl Est Creatinine Clear Calc Drug Dose 30.1 ml/min Estimated GFR () 33.8 Estimated GFR (Non- 29.1 BUN/Creatinine Ratio 29.7 Random Glucose 123 mg/dl Calcium Level 8.0 mg/dl Phosphorus Level 4.0 mg/dl Magnesium Level 2.5 mg/dl Pro-B-Type Natriuretic Peptide 14237 pg/ml Random Vancomycin Level 14.2 mcg/ml Prothrombin Time 13.0 SECONDS Prothromb Time International Ratio 1.2
[2016-11-22] MEDS ORDERED: ISOSORBIDE MONONITRATE 60 MG TABCR PO ONE (10:35)
[2016-11-22] MEDS ORDERED: CEFEPIME CONSULT ACTIVE PRN ×2 (10:45)
[2016-11-22] MEDS: PANTOprazole INJ 40 MG in SYRINGE 0 ML IV SCH (10:47)
[2016-11-22] MEDS: CEFEPIME IV 2,000 MG in DEXTROSE 5% 100ML 100 ML IV SCH ×2 (10:49→22:55)
[2016-11-22] MEDS ORDERED: METOPROLOL TARTRATE 25 MG TAB PO ONE (11:00)
[2016-11-22 11:33] LABS: PARTIAL THROMBOPLASTIN RATIO 2.8
[2016-11-22] MEDS ORDERED: FUROSEMIDE INJ 40 MG in SYRINGE 0 ML IV SCH (12:00)
[2016-11-22 14:24] LABS: PARTIAL THROMBOPLASTIN RATIO 2.9
[2016-11-22] MEDS: HEPARIN 25,000 UNIT/500ML D5W 500 ML IV PRN ×2 (15:52→22:26)
--- NOTE | 2016-11-22 17:34 | Progress Note ---
Internal Med Progress Note Date of Service: November 21, 2016 and October. Provider Documentation: SUBJECTIVE: The patient was seen and examined Feels better following admission On BIPAP now Denies any symptoms denies any complaints OBJECTIVE: Vital Signs-as noted below Exam: General-Moderate distress at rest OOB i=on a chair Eyes-normal ENT-normal Neck-supple Lungs-Decreased breath sound bilaterally Occasional crackles at the bases Heart-Regular,no murmur Abdomen-Benign,no kris,bowel sound present Extremities-Trace edema bilaterally Neuro-AA Generally weak Lab data as noted below. ASSESSMENT & PLAN: ACUTE HYPOXIC RESPIRATORY FAILURE SECONDARY TO PULMONARY EDEMA HISTORY OF CHF EF 30-35% Lasix increased to 40 mg IV BID He was on TID with Xyloxylin in the past. FILIBERTO continue the BIPA pressure setting 06/02 per sleep study done 04/08/2016 Appreciate Corporate Communications Specialist input Cardiology consulted-appreciate input Clinically better Continue current medications SEPSIS SECONDARY TO POSS[facility] CARE ASS[facility]IATED PNEUMONIA R/O UTI Lactic acid elevated but patient has pulmonary edema, will defer IV fluids for now Has been on empiric Vanco, Levaquin, Aztreonam 3 days would use vancomycin, levaquin and aztreonam. FU urine, blood cultures and send sputum cultures-negative Continue current antibiotics CHF with H/O CAD/CABG Resume a small dose metoprolol of 12.5 mg and escalate to patients home dose of 25 daily Continue atorvastatin 80 mg daily Resume Imdur Appreciate Cardiology input ALTERED MENTAL STATUS LIKELY METABOLIC ENCEPHALOPATHY FROM SEPSIS CT head no acute process No more confusion MILD HYPERKALEMIA no ekg changes monitor-normalized MILD TROPONIN ELEVATION likely from sepsis, CKD no ischemia on EKG Partly complicated by Renal Failure Doubt any ACS DM 2 ISS for now CKD 4 Creatinine at baseline Potassium is improved DVT PROPHYLAXIS Heparin CODE STATUS DNR per last admission's notes DISPOSITION pending resident of [facility] POOR prognosis Vital Signs: Date Time Temp Pulse Resp B/P Pulse Ox O2 Delivery O2 Flow Rate FiO2 11/22/16 16:00 36.4 75 26 114/63 96 Nasal Cannula 4.0 11/22/16 16:00 Nasal Cannula 4.0 11/22/16 14:00 36.3 83 22 115/78 96 Nasal Cannula 4.0 11/22/16 12:00 Nasal Cannula 4.0 11/22/16 12:00 36.4 83 22 107/83 98 Nasal Cannula 4.0 11/22/16 10:00 74 22 116/66 95 Nasal Cannula 4.0 11/22/16 08:00 Nasal Cannula 4.0 11/22/16 08:00 36.3 79 21 114/63 95 Nasal Cannula 4.0 11/22/16 07:13 78 21 97 BiPAP/CPAP 30 11/22/16 06:01 78 28 115/68 96 BiPAP 30 11/22/16 04:01 36.5 80 26 111/64 97 BiPAP 30 11/22/16 04:00 97 BiPAP 30 11/22/16 02:01 79 22 113/65 95 BiPAP 30 11/22/16 00:16 35.8 86 28 113/63 95 BiPAP 30 11/21/16 23:59 97 BiPAP 30 11/21/16 23:45 90 94 30 11/21/16 23:17 36.4 86 25 124/68 98 4.0 11/21/16 22:17 36.4 86 28 127/82 99 4.0 11/21/16 22:02 84 29 129/77 96 Nasal Cannula 4.0 11/21/16 21:17 36.4 87 25 129/70 98 4.0 11/21/16 20:47 36.3 87 27 133/74 98 4.0 11/21/16 20:17 36.4 81 26 129/70 98 4.0 11/21/16 20:01 36.9 81 23 121/66 97 Nasal Cannula 4.0 11/21/16 20:00 Nasal Cannula 4.0 11/21/16 20:00 36.5 82 26 121/66 97 4.0 11/21/16 19:56 36.7 83 29 116/68 97 11/21/16 19:54 36.7 82 28 116/68 98 4.0 11/21/16 19:46 36.9 84 23 119/60 97 4.0 11/21/16 19:17 82 24 97 Nasal Cannula 4.0 11/21/16 18:13 36.8 80 24 96 Nasal Cannula 4.0 Lab Results: Results Past 24 Hours Test 11/21/16 19:57 11/21/16 23:35 11/22/16 00:14 11/22/16 02:10 Range/Units Activated Partial Thromboplast Time 103.5 55.1 76.7 21.0-31.0 SECONDS Partial Thromboplastin Ratio 4.0 2.1 3.0 Bedside Glucose 128 70-99 mg/dl Test 11/22/16 05:54 11/22/16 05:55 11/22/16 08:06 11/22/16 11:54 Range/Units Bedside Glucose 134 167 70-99 mg/dl White Blood Count 15.00 4.8-10.8 K/uL Red Blood Count 3.09 4.7-6.1 M/uL Hemoglobin 9.6 14.0-18.0 g/dL Hematocrit 28.2 42-52 % Mean Corpuscular Volume 91.3 80-100 fL Mean Corpuscular Hemoglobin 31.1 25-34 pg Mean Corpuscular Hemoglobin Concent 34.0 32-36 g/dl Platelet Count 331 130-400 K/uL Mean Platelet Volume 8.5 7.4-10.4 fL Neutrophils (%) (Auto) 76.6 % Lymphocytes (%) (Auto) 8.1 % Monocytes (%) (Auto) 11.3 % Eosinophils (%) (Auto) 3.2 % Basophils (%) (Auto) 0.2 % Neutrophils # (Auto) 11.50 1.4-6.5 K/uL Lymphocytes # (Auto) 1.21 1.2-3.4 K/uL Monocytes # (Auto) 1.69 0.11-0.59 K/uL Eosinophils # (Auto) 0.48 0-0.5 K/uL Basophils # (Auto) 0.03 0-0.2 K/uL RDW Standard Deviation 55.0 36.4-46.3 fL RDW Coefficient of Variation 16.5 11.5-14.5 % Immature Granulocyte % (Auto) 0.6 % Immature Granulocyte # (Auto) 0.09 0.00-0.02 K/uL Sodium Level 134 136-145 mmol/L Potassium Level 3.7 3.5-5.1 mmol/L Chloride Level 98 98-107 mmol/L Carbon Dioxide Level 25 21-32 mmol/L Anion Gap 11.0 3-11 mmol/L Blood Urea Nitrogen 59 7-18 mg/dl Creatinine 2.00 0.60-1.40 mg/dl Est Creatinine Clear Calc Drug Dose 30.1 ml/min Estimated GFR () 33.8 Estimated GFR (Non- 29.1 BUN/Creatinine Ratio 29.7 10-20 Random Glucose 123 70-99 mg/dl Calcium Level 8.0 8.5-10.1 mg/dl Phosphorus Level 4.0 2.5-4.9 mg/dl Magnesium Level 2.5 1.8-2.4 mg/dl Pro-B-Type Natriuretic Peptide 95327 0-1800 pg/ml Random Vancomycin Level 14.2 mcg/ml Prothrombin Time 13.0 9.0-12.0 SECONDS Prothromb Time International Ratio 1.2 0.9-1.1 Activated Partial Thromboplast Time 72.3 21.0-31.0 SECONDS Partial Thromboplastin Ratio 2.8 Test 11/22/16 13:51 11/22/16 16:14 Range/Units Activated Partial Thromboplast Time 75.3 21.0-31.0 SECONDS Partial Thromboplastin Ratio 2.9 Bedside Glucose 137 70-99 mg/dl Microbiology Results 11/22/16 Gram Stain - Final, Resulted 11/22/16 Sputum Culture, Resulted Pending
[2016-11-22 19:36] LABS: PARTIAL THROMBOPLASTIN RATIO > 11.0
[2016-11-22 21:21] LABS: PARTIAL THROMBOPLASTIN RATIO 2.1
[2016-11-22] MEDS: ATORVASTATIN 40 MG TAB PO SCH (21:52)
[2016-11-22] MEDS ORDERED: LEVOFLOXACIN 750MG / D5W IV SCH (22:00)
[2016-11-22] MEDS ORDERED: POTASSIUM CHLORIDE 20 MEQ/15 ML UDC PO STA (22:27)
[2016-11-23] VITALS (69 sets, daily range): BP systolic 60–125; BP diastolic 27–75; PULSE 73–118; TEMP 35.9–36.9; O2SAT 79–97
[2016-11-23 04:38] LABS: BASO % 0.2 %; BASO ABS # 0.03 K/uL (0-0.2); COMPLETE YES; EOS % 3.7 %; HEMATOCRIT 28.6 % (42-52); IG% 0.8 %; LYMPH % 6.4 %; LYMPH ABS # 0.91 K/uL (1.2-3.4); MEAN CELL VOLUME 90.5 fL (80-100); MEAN CORPUSCULAR HEMOGLOBIN 29.7 pg (25-34); MEAN CORPUSCULAR HGB CONC 32.9 g/dl (32-36); MEAN PLATELET VOLUME 8.7 fL (7.4-10.4); NEUT % 75.9 %; PLATELET COUNT 380 K/uL (130-400); RED BLOOD COUNT 3.16 M/uL (4.7-6.1); WHITE BLOOD COUNT 14.28 K/uL (4.8-10.8)
[2016-11-23 04:46] LABS: PARTIAL THROMBOPLASTIN RATIO 1.9
[2016-11-23 04:51] LABS: BUN/CREATININE RATIO 31.3 (10-20); CALCIUM 8.1 mg/dl (8.5-10.1); CREATININE 1.9 mg/dl (0.60-1.40); MAGNESIUM 2.6 mg/dl (1.8-2.4); POTASSIUM 3.7 mmol/L (3.5-5.1)
[2016-11-23 04:53] LABS: PHOSPHORUS 3.2 mg/dl (2.5-4.9)
[2016-11-23] MEDS: INSULIN ASPART 100 UNITS/ML 3 ML PEN SC SCH ×4 (06:41→21:00)
[2016-11-23] MEDS ORDERED: ENALAPRILAT IV 1.25 MG in DEXTROSE 5% 25ML 25 ML IV ONE (07:45)
[2016-11-23] MEDS ORDERED: POTASSIUM CHLORIDE 20 MEQ/15 ML UDC PO STA (07:48)
--- NOTE | 2016-11-23 08:35 | DIAGNOSTIC IMAGING REPORT ---
CHEST ONE VIEW PORTABLE HISTORY: Short of breath. check on heart failure COMPARISON: Chest 11/22/2016. FINDINGS: Diffuse bilateral airspace opacities are not significantly changed. Small bilateral pleural effusions and cardiomegaly persist. There are poststernotomy changes. No pneumothorax. IMPRESSION: No change in the bilateral airspace opacities and small bilateral pleural effusions. Electronically signed by: Alan Jones M.D. 11/23/2016 8:34 AM Dictated Date/Time: 11/23/2016 8:33 AM
[2016-11-23] MEDS: SPIRONOLACTONE 25 MG TAB PO SCH (08:58)
[2016-11-23] MEDS: ASPIRIN 81 MG ECTAB PO SCH (08:58)
[2016-11-23] MEDS: CLOPIDOGREL BISULFATE 75 MG TAB PO SCH (08:59)
[2016-11-23] MEDS: ISOSORBIDE MONONITRATE 60 MG TABCR PO SCH (08:59)
[2016-11-23] MEDS: METOPROLOL TARTRATE 25 MG TAB PO SCH ×2 (08:59→21:00)
[2016-11-23] MEDS: FINASTERIDE 5 MG TAB PO SCH (08:59)
[2016-11-23] MEDS: SERTRALINE HCL 50 MG TAB PO SCH (09:00)
[2016-11-23] MEDS: ALLOPURINOL 300 MG TAB PO SCH (09:00)
[2016-11-23] MEDS: SENNA 8.6 MG TAB PO SCH (09:00)
[2016-11-23] MEDS ORDERED: METOPROLOL TARTRATE 25 MG TAB PO SCH (09:00)
[2016-11-23] MEDS: FUROSEMIDE INJ 100 MG in DEXTROSE 5% 100ML 90 ML IV SCH ×2 (09:01→20:15)
--- NOTE | 2016-11-23 09:03 | Cardiology Follow-Up ---
Subjective General Date of Service: November 23, 2016. Chief Complaint: follow up shortness of breath Pt evaluation today including: conversation w/ patient, physical exam, conversation w/ real estate listing consultant History of Present Illness The patient is a 85 year old male seen in cardiology follow-up in ICU room 106. Patient appears more short of breath this morning. Yesterday when I saw him he was out of bed in the chair on nasal cannula oxygen. Today he is in bed and he remains on BiPAP. Per his nurse, I was updated that his oxygen saturations have been low off of BiPAP overnight and this morning. He just had a repeat portable chest x-ray which reveals continued bilateral interstitial edema and pleural effusions. Patient is awake and oriented. Allergies Coded Allergies: Zolpidem (Verified Allergy, Severe, SOB, MUSCLES "LOCK UP" PER [facility], ) DELIRIUM. Confusion. Insomnia. Insulin Aspart (Verified Adverse Reaction, Intermediate, REDDENED RASH ALL OVER BODY, 11/03/16) Insulin Glargine (Verified Adverse Reaction, Intermediate, REDDENED RASH ALL OVER BODY, 11/03/16) Amoxicillin (Verified Adverse Reaction, Unknown, NIGHTMARES, 11/03/16) Social History Smoking Status: Unknown if Ever Smoked Hx Tobacco Use In Past Year?: No Hx Alcohol Use - Type And Amou: No Hx Substance Use - Type And Am: No Problem List Medical Problems: (1) Acute renal failure Status: Acute (2) Altered mental status Status: Acute (3) Elevated troponin Status: Acute (4) Elevated TSH Status: Acute (5) Generalized weakness Status: Acute (6) Hyperkalemia Status: Acute (7) Hypoglycemia Status: Acute (8) Hypoxemia Status: Acute (9) Pulmonary edema Status: Acute (10) Sepsis Status: Acute (11) Swelling of left lower extremity Status: Acute (12) Urinary tract infection Status: Acute Physical Exam Vital Signs Last Vital Signs Documentation Date Time Temp Pulse Resp B/P Pulse Ox O2 Delivery O2 Flow Rate FiO2 11/23/16 05:01 84 47 118/69 91 BiPAP 30 11/23/16 04:01 36.6 11/22/16 18:00 4.0 Physical Exam Constitutional: Level of Distress: chronically ill Neck: supple Lungs: Auscultation: pertinent finding (bilateral rales Left worse than right ) Cardiovascular: Heart Auscultation: RRR, no murmurs Extremities: no edema Neurologic: Gait & Station: pertinent finding (no focal deficits ) Assessment and Plan Assessment and Plan Impression: 1. Acute on chronic systolic heart failure, NSTEMI 2. 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 3 hospitalizations 06/2016 and twice this month, and LVEF has declined further on each measurements, and is now down to the 20-25% range. Continue heparin as well as ASA, plavix, metoprolol. Agree with low-dose CHARO inhibitor for afterload reduction, and furosemide infusion. We discussed adding dobutamine for inotropic support, but we'll hold this reserve, due to concerns that it will induce tachycardia and ischemia rather than inotropic benefits. Pt DNR, elects for conservative management and I would predict that cath would be of low yield and that CAD prompting medical treatment would be found regardless. Prognosis is poor. Laboratory Results Last 24 Hours Test 11/22/16 11:54 11/22/16 13:51 11/22/16 16:14 11/22/16 18:14 Bedside Glucose 167 mg/dl 137 mg/dl Activated Partial Thromboplast Time 75.3 SECONDS > 300.0 SECONDS Partial Thromboplastin Ratio 2.9 > 11.0 Test 11/22/16 20:51 11/22/16 20:58 11/22/16 22:00 11/23/16 03:50 Bedside Glucose 164 mg/dl Activated Partial Thromboplast Time 54.4 SECONDS 48.1 SECONDS Partial Thromboplastin Ratio 2.1 1.9 Creatine Kinase MB 5.2 ng/ml Creatine Kinase MB Ratio Troponin I 0.394 ng/ml White Blood Count 14.28 K/uL Red Blood Count 3.16 M/uL Hemoglobin 9.4 g/dL Hematocrit 28.6 % Mean Corpuscular Volume 90.5 fL Mean Corpuscular Hemoglobin 29.7 pg Mean Corpuscular Hemoglobin Concent 32.9 g/dl Platelet Count 380 K/uL Mean Platelet Volume 8.7 fL Neutrophils (%) (Auto) 75.9 % Lymphocytes (%) (Auto) 6.4 % Monocytes (%) (Auto) 13.0 % Eosinophils (%) (Auto) 3.7 % Basophils (%) (Auto) 0.2 % Neutrophils # (Auto) 10.84 K/uL Lymphocytes # (Auto) 0.91 K/uL Monocytes # (Auto) 1.86 K/uL Eosinophils # (Auto) 0.53 K/uL Basophils # (Auto) 0.03 K/uL RDW Standard Deviation 54.4 fL RDW Coefficient of Variation 16.4 % Immature Granulocyte % (Auto) 0.8 % Immature Granulocyte # (Auto) 0.11 K/uL Sodium Level 133 mmol/L Potassium Level 3.7 mmol/L Chloride Level 98 mmol/L Carbon Dioxide Level 26 mmol/L Anion Gap 9.0 mmol/L Blood Urea Nitrogen 59 mg/dl Creatinine 1.90 mg/dl Est Creatinine Clear Calc Drug Dose 31.1 ml/min Estimated GFR () 35.9 Estimated GFR (Non- 31.0 BUN/Creatinine Ratio 31.3 Random Glucose 116 mg/dl Calcium Level 8.1 mg/dl Phosphorus Level 3.2 mg/dl Magnesium Level 2.6 mg/dl Random Vancomycin Level 21.2 mcg/ml Test 11/23/16 05:31 11/23/16 08:38 Creatine Kinase MB 5.8 ng/ml Creatine Kinase MB Ratio Troponin I 0.337 ng/ml
[2016-11-23 09:04] LABS: PARTIAL THROMBOPLASTIN RATIO 2.1
--- NOTE | 2016-11-23 09:16 | Pharmacy Progress Note ---
Glycemic Control: Progress Nt Date of Service November 23, 2016. Scope Glycemic Pharmacist consulted by Dr Ledbetter on 11/21/16 for glycemic control and to write orders per [facility] inpatient glycemic control protocol. Objective Accuchecks BSG (last 24hrs): Test 11/22/16 11:54 11/22/16 16:14 11/22/16 20:51 11/23/16 03:50 Bedside Glucose 167 mg/dl (70-99) 137 mg/dl (70-99) 164 mg/dl (70-99) Random Glucose 116 mg/dl (70-99) Laboratory Data (last 24hrs) Test 11/23/16 03:50 Anion Gap 9.0 mmol/L BUN/Creatinine Ratio 31.3 Blood Urea Nitrogen 59 mg/dl Creatinine 1.90 mg/dl Potassium Level 3.7 mmol/L Sodium Level 133 mmol/L White Blood Count 14.28 K/uL Red Blood Count 3.16 M/uL Hemoglobin 9.4 g/dL Hematocrit 28.6 % Mean Corpuscular Volume 90.5 fL Mean Corpuscular Hemoglobin 29.7 pg Mean Corpuscular Hemoglobin Concent 32.9 g/dl Platelet Count 380 K/uL Mean Platelet Volume 8.7 fL Neutrophils (%) (Auto) 75.9 % Lymphocytes (%) (Auto) 6.4 % Monocytes (%) (Auto) 13.0 % Eosinophils (%) (Auto) 3.7 % Basophils (%) (Auto) 0.2 % Neutrophils # (Auto) 10.84 K/uL Lymphocytes # (Auto) 0.91 K/uL Monocytes # (Auto) 1.86 K/uL Eosinophils # (Auto) 0.53 K/uL Basophils # (Auto) 0.03 K/uL Recent Pertinent Medications Outpatient Anti-diabetic Regimen: * Glucotrol XL * Januvia * A1c = 7.3 % 10/11/16 The patient is currently receiving: * Basal insulin: * Lantus 10 units x1 dose on 11/21 * Bolus insulin: * NovoLog SQ AC+HS - Goal Range: Low 140 mg/dL - High 180 mg/dL - Correction Factor: 25 mg/dL/unit - Carb ratio of 1 unit per 10 grams CHO consumed * Oral Agents: * held on admission Risk Factors for Insulin Resistance: * Steroids: none * Infection: sepsis secondary to pneumonia - current regimen includes vancomycin , cefepime, and levofloxacin IV * IVF: heparin infusion (mixed in dextrose) * Diet: T2DM/AHA Assessment & Plan ASSESSMENT: * ADA & AACE recommend a goal blood sugar range 140-180 mg/dl for the majority of critically ill & non-critically ill patients. However, more stringent targets may be selected in individual cases. 11/23/16 * Insulin has not been required over the past 24 hours with BSGs ranging from 123-167mg/dL * AM BSG today 116mg/dL * no indication for basal insulin at this time * PO intake poor due to SOB * will resume Januvia when PO intake improves * continue to hold sulfonylurea secondary to the hypoglycemic potential of that drug class * A1c is current PLAN FOR INPATIENT GLYCEMIC CONTROL: * Basal insulin: * forgo at this time based on fasting BSG WNL * Bolus insulin: * Continue NovoLog SQ AC and HS - Correction factor: 25mg/dL/unit - Carb ratio: 1 unit per 10 g of CHO consumed, may remove when Januvia resumed - Goal: 140-180mg/dL per ADA recommendations * Oral agents: * Hold Januvia 50mg PO daily - renally dosed for CrCl 30-50mL/min * Hold Glucotrol XL as above RECOMMENDATIONS FOR DISCHARGE: * Likely, Mr. Aparicio can continue his home regimen at discharge. * Please note that the plan above was derived based on current level of insulin resistance and hospital stress. These recommendations are appropriate for inpatient admission only. Plan of care upon discharge will need to be reassessed to avoid potential outpatient hypo/hyperglycemia. Thank you.
--- NOTE | 2016-11-23 09:33 | Progress Note ---
Internal Med Progress Note Date of Service: November 23, 2016. Provider Documentation: SUBJECTIVE: The patient was seen and examined Feels fine but gets very SOB on taking off BIPAP Still has severe CHF Denies any pain OBJECTIVE: Vital Signs-as noted below Exam: General-Moderate distress at rest On BIPAP Eyes-normal ENT-normal Neck-supple Lungs-Decreased breath sound bilaterally Occasional crackles at the bases Heart-Regular,no murmur Abdomen-Benign,no kris,bowel sound present Extremities-1 + edema bilaterally Neuro-AA Generally weak Lab data as noted below. ASSESSMENT & PLAN: ACUTE HYPOXIC RESPIRATORY FAILURE SECONDARY TO PULMONARY EDEMA HISTORY OF CHF EF 30-35% Lasix increased to 40 mg IV BID He was on TID with Xyloxylin in the past. FILIBERTO continue the BIPA pressure setting 06/02 per sleep study done 04/08/2016 Appreciate Farm Products Shipper input Cardiology consulted-appreciate input Clinically better on BIPAP Likely to need IV Lasix and may need IV Dobutamine if not any better with Lasix SEPSIS SECONDARY TO POSS[facility] CARE ASSOCIATED PNEUMONIA R/O UTI Lactic acid elevated but patient has pulmonary edema, will defer IV fluids for now Has been on empiric Vanco, Levaquin, Aztreonam 3 days would use vancomycin, levaquin and aztreonam. FU urine, blood cultures -negative Sputum Culture -pending Continue current antibiotics CHF with H/O CAD/CABG Resume a small dose metoprolol of 12.5 mg and escalate to patients home dose of 25 daily Continue atorvastatin 80 mg daily Resume Imdur Appreciate Cardiology input on Small dose of BB,ACEI and Aldactone ALTERED MENTAL STATUS LIKELY METABOLIC ENCEPHALOPATHY FROM SEPSIS CT head no acute process No more confusion MILD HYPERKALEMIA no ekg changes monitor-normalized MILD TROPONIN ELEVATION likely from sepsis, CKD no ischemia on EKG Partly complicated by Renal Failure Doubt any ACS DM 2 ISS for now CKD 4 Creatinine at baseline Potassium is improved DVT PROPHYLAXIS Heparin CODE STATUS DNR per last admission's notes DISPOSITION pending resident of [facility] PO[facility] prognosis Vital Signs: Date Time Temp Pulse Resp B/P Pulse Ox O2 Delivery O2 Flow Rate FiO2 11/23/16 05:01 84 47 118/69 91 BiPAP 30 11/23/16 04:01 36.6 81 24 122/70 93 BiPAP 30 11/23/16 04:00 BiPAP 30 11/23/16 03:01 84 24 125/69 93 BiPAP 30 11/23/16 02:01 91 34 111/74 86 BiPAP 30 11/23/16 01:01 85 27 118/66 92 BiPAP 30 11/23/16 00:01 36.5 84 22 118/68 94 BiPAP 30 11/23/16 00:01 BiPAP 30 11/22/16 23:01 85 18 115/64 93 BiPAP 30 11/22/16 22:10 76 20 107/65 91 BiPAP 30 11/22/16 20:16 36.6 82 24 104/58 92 BiPAP 30 11/22/16 20:08 80 95 30 11/22/16 20:00 BiPAP 30 11/22/16 18:00 79 22 117/56 96 Nasal Cannula 4.0 11/22/16 16:00 36.4 75 26 114/63 96 Nasal Cannula 4.0 11/22/16 16:00 Nasal Cannula 4.0 11/22/16 14:00 36.3 83 22 115/78 96 Nasal Cannula 4.0 11/22/16 12:00 Nasal Cannula 4.0 11/22/16 12:00 36.4 83 22 107/83 98 Nasal Cannula 4.0 11/22/16 10:00 74 22 116/66 95 Nasal Cannula 4.0 Lab Results: Results Past 24 Hours Test 11/22/16 11:54 11/22/16 13:51 11/22/16 16:14 11/22/16 18:14 Range/Units Bedside Glucose 167 137 70-99 mg/dl Activated Partial Thromboplast Time 75.3 > 300.0 21.0-31.0 SECONDS Partial Thromboplastin Ratio 2.9 > 11.0 Test 11/22/16 20:51 11/22/16 20:58 11/22/16 22:00 11/23/16 03:50 Range/Units Bedside Glucose 164 70-99 mg/dl Activated Partial Thromboplast Time 54.4 48.1 21.0-31.0 SECONDS Partial Thromboplastin Ratio 2.1 1.9 Creatine Kinase MB 5.2 0.5-3.6 ng/ml Creatine Kinase MB Ratio 0-3.0 Troponin I 0.394 0-0.045 ng/ml White Blood Count 14.28 4.8-10.8 K/uL Red Blood Count 3.16 4.7-6.1 M/uL Hemoglobin 9.4 14.0-18.0 g/dL Hematocrit 28.6 42-52 % Mean Corpuscular Volume 90.5 80-100 fL Mean Corpuscular Hemoglobin 29.7 25-34 pg Mean Corpuscular Hemoglobin Concent 32.9 32-36 g/dl Platelet Count 380 130-400 K/uL Mean Platelet Volume 8.7 7.4-10.4 fL Neutrophils (%) (Auto) 75.9 % Lymphocytes (%) (Auto) 6.4 % Monocytes (%) (Auto) 13.0 % Eosinophils (%) (Auto) 3.7 % Basophils (%) (Auto) 0.2 % Neutrophils # (Auto) 10.84 1.4-6.5 K/uL Lymphocytes # (Auto) 0.91 1.2-3.4 K/uL Monocytes # (Auto) 1.86 0.11-0.59 K/uL Eosinophils # (Auto) 0.53 0-0.5 K/uL Basophils # (Auto) 0.03 0-0.2 K/uL RDW Standard Deviation 54.4 36.4-46.3 fL RDW Coefficient of Variation 16.4 11.5-14.5 % Immature Granulocyte % (Auto) 0.8 % Immature Granulocyte # (Auto) 0.11 0.00-0.02 K/uL Sodium Level 133 136-145 mmol/L Potassium Level 3.7 3.5-5.1 mmol/L Chloride Level 98 98-107 mmol/L Carbon Dioxide Level 26 21-32 mmol/L Anion Gap 9.0 3-11 mmol/L Blood Urea Nitrogen 59 7-18 mg/dl Creatinine 1.90 0.60-1.40 mg/dl Est Creatinine Clear Calc Drug Dose 31.1 ml/min Estimated GFR () 35.9 Estimated GFR (Non- 31.0 BUN/Creatinine Ratio 31.3 10-20 Random Glucose 116 70-99 mg/dl Calcium Level 8.1 8.5-10.1 mg/dl Phosphorus Level 3.2 2.5-4.9 mg/dl Magnesium Level 2.6 1.8-2.4 mg/dl Random Vancomycin Level 21.2 mcg/ml Test 11/23/16 05:31 11/23/16 08:38 Range/Units Creatine Kinase MB 5.8 0.5-3.6 ng/ml Creatine Kinase MB Ratio 0-3.0 Troponin I 0.337 0-0.045 ng/ml Activated Partial Thromboplast Time 54.6 21.0-31.0 SECONDS Partial Thromboplastin Ratio 2.1
[2016-11-23] MEDS ORDERED: SITAGLIPTIN 25 MG TAB PO SCH (10:00)
--- NOTE | 2016-11-23 11:02 | Pharmacy Progress Note ---
Pharmacy Abx Dose Progress Nt Date of Service November 23, 2016. Pharmacy Dosing Scope The patient is currently receiving the following antimicrobial agents per Pharmacy consult: * vancomycin * cefepime * levofloxacin Objective Height (Feet): 5 Height (Inches): 8.00 Weight (Kilograms): 100.200 Vital Signs (Past 12Hrs) Vital Signs Past 12 Hours Date Time Temp Pulse Resp B/P Pulse Ox O2 Delivery O2 Flow Rate FiO2 11/23/16 09:01 96 31 122/75 94 BiPAP 30 11/23/16 08:01 35.9 98 32 114/73 92 BiPAP 30 11/23/16 08:00 BiPAP 30 11/23/16 07:01 89 27 113/66 94 BiPAP 30 11/23/16 05:01 84 47 118/69 91 BiPAP 30 11/23/16 04:01 36.6 81 24 122/70 93 BiPAP 30 11/23/16 04:00 BiPAP 30 11/23/16 03:01 84 24 125/69 93 BiPAP 30 11/23/16 02:01 91 34 111/74 86 BiPAP 30 11/23/16 01:01 85 27 118/66 92 BiPAP 30 11/23/16 00:01 36.5 84 22 118/68 94 BiPAP 30 11/23/16 00:01 BiPAP 30 11/22/16 23:01 85 18 115/64 93 BiPAP 30 Lab Results (24Hrs) Test 11/22/16 16:14 11/22/16 20:51 11/22/16 22:00 11/23/16 03:50 Bedside Glucose 137 mg/dl (70-99) 164 mg/dl (70-99) Creatine Kinase MB 5.2 ng/ml (0.5-3.6) Creatine Kinase MB Ratio (0-3.0) Troponin I 0.394 ng/ml (0-0.045) White Blood Count 14.28 K/uL (4.8-10.8) Red Blood Count 3.16 M/uL (4.7-6.1) Hemoglobin 9.4 g/dL (14.0-18.0) Hematocrit 28.6 % (42-52) Mean Corpuscular Volume 90.5 fL (80-100) Mean Corpuscular Hemoglobin 29.7 pg (25-34) Mean Corpuscular Hemoglobin Concent 32.9 g/dl (32-36) Platelet Count 380 K/uL (130-400) Mean Platelet Volume 8.7 fL (7.4-10.4) Neutrophils (%) (Auto) 75.9 % Lymphocytes (%) (Auto) 6.4 % Monocytes (%) (Auto) 13.0 % Eosinophils (%) (Auto) 3.7 % Basophils (%) (Auto) 0.2 % Neutrophils # (Auto) 10.84 K/uL (1.4-6.5) Lymphocytes # (Auto) 0.91 K/uL (1.2-3.4) Monocytes # (Auto) 1.86 K/uL (0.11-0.59) Eosinophils # (Auto) 0.53 K/uL (0-0.5) Basophils # (Auto) 0.03 K/uL (0-0.2) RDW Standard Deviation 54.4 fL (36.4-46.3) RDW Coefficient of Variation 16.4 % (11.5-14.5) Immature Granulocyte % (Auto) 0.8 % Immature Granulocyte # (Auto) 0.11 K/uL (0.00-0.02) Activated Partial Thromboplast Time 48.1 SECONDS (21.0-31.0) Partial Thromboplastin Ratio 1.9 Sodium Level 133 mmol/L (136-145) Potassium Level 3.7 mmol/L (3.5-5.1) Chloride Level 98 mmol/L (98-107) Carbon Dioxide Level 26 mmol/L (21-32) Anion Gap 9.0 mmol/L (3-11) Blood Urea Nitrogen 59 mg/dl (7-18) Creatinine 1.90 mg/dl (0.60-1.40) Est Creatinine Clear Calc Drug Dose 31.1 ml/min Estimated GFR () 35.9 Estimated GFR (Non- 31.0 BUN/Creatinine Ratio 31.3 (10-20) Random Glucose 116 mg/dl (70-99) Calcium Level 8.1 mg/dl (8.5-10.1) Phosphorus Level 3.2 mg/dl (2.5-4.9) Magnesium Level 2.6 mg/dl (1.8-2.4) Random Vancomycin Level 21.2 mcg/ml Test 11/23/16 05:31 11/23/16 08:38 Creatine Kinase MB 5.8 ng/ml (0.5-3.6) Creatine Kinase MB Ratio (0-3.0) Troponin I 0.337 ng/ml (0-0.045) Activated Partial Thromboplast Time 54.6 SECONDS (21.0-31.0) Partial Thromboplastin Ratio 2.1 Micro Results Date/Time Source Procedure Growth Status 11/21/16 03:22 Blood Blood Culture - Preliminary NO GROWTH TO DATE. Resulted 11/21/16 03:22 Blood Blood Culture - Preliminary NO GROWTH TO DATE. Resulted 11/21/16 01:10 Nasal MRSA DNA Surveillance Screen - Final Specimen Positive for MRSA by DNA Probe Complete 11/22/16 00:00 Sputum Expectorated Sputum Gram Stain - Final Resulted 11/22/16 00:00 Sputum Expectorated Sputum Sputum Culture Pending Resulted 11/20/16 23:20 Urine,Catheterized Urine Culture - Preliminary NO GROWTH - LESS THAN 1,000 COLONIES/... Resulted Risk Factors for Resistance * Resident in a longterm or extended-care facility * Hospitalization for 48 hours or more within the past 90 days * Antimicrobial use within the last 90 days Assessment & Plan Assessment 85 year old male receiving broad-spectrum IV antibiotics for treatment of sepsis secondary to pneumonia Plan * Continue broad-spectrum antibiotics until sputum culture results (per interdisciplinary ICU rounds) Vancomycin IV - day #3 * Random level today = 21.2 mcg/mL is therapeutic * Serum creatinine stable and will begin maintenance dose today * Vancomycin 1350mg (~13.5mg/kg) IV every 24 hours * Goal trough level for pulmonary infection: 15 to 20 mcg/mL * Trough level ordered for: 11/25/16 prior to the 12:00 dose * Less than traditional dose and/or extended dosing interval selected due to likelihood of drug accumulation in obese patient/CKD. Levofloxacin IV - day #3 * Target dose 750mg IV/PO every 24 hours * Dose adj for CrCl 20-50mL/min to 750mg IV/PO every 48 hours Cefepime IV - day #2 (was on Azactam prior to this) * Target dose for pulmonary infection in patient in the ICU setting is 2000mg IV every 8 hours * Dose adj for CrCl 30-60mL/min to 2000mg IV every 12 hours Pharmacy will continue to follow and will adjust dose/frequency as necessary. Thank you.
[2016-11-23] MEDS: CEFEPIME IV 2,000 MG in DEXTROSE 5% 100ML 100 ML IV SCH ×2 (11:18→21:52)
[2016-11-23] MEDS: PANTOprazole INJ 40 MG in SYRINGE 0 ML IV SCH (11:19)
[2016-11-23] MEDS ORDERED: MILRINONE IV ONE (12:00)
[2016-11-23] MEDS ORDERED: D5W IV ONE (12:00)
[2016-11-23] MEDS ORDERED: VANCOMYCIN INJ 1,350 MG in SODIUM CHLORIDE 0.9% 250ML 250 ML IV SCH (12:00)
[2016-11-23] MEDS: MILRINONE / D5W 20,000 MCG in PREMIXED IN D5W 100 ML IV SCH ×2 (12:15→22:14)
--- NOTE | 2016-11-23 12:25 | Critical Care Progress Note ---
Critical Care Progress Note Date of Service November 23, 2016. ICU Day ICU Day Number: [address] Lopez Subjective He was transferred to [facility] because he was found unresponsive by staff. He was in hypoxic respiratory failure likely due to flash pulmonary edema. He was placed on BIPAP and given lasix with significant improvement. On 11/21/16 he increased troponin to 1.2 and I started IV heparin on top of plvix and ASA + his high dose statin. He was given 1 prbc for dropping Hb which then stabilized at 9.4-9.6. I gave him an extra lasix yesterday for a total of 120mg to no avail He remains in positive balance and is now dependent on BIPAP I had a long discussion with the son about the fact that we are reaching the max therapy. Since his Cr improved to 1.9 with K at 3.7 today we added both enalaprilat 1.25 mg and spironolactone. His Metoprolol is at 25 mg BID Then we changed lasix to a drip at 8 mg /hr patient did not tolerate that and his MAP dropped to 57 so the rate was decreaed to 4 mg/hr and his MAP is at 60- 64 but the urine output is worse than yesterday We will try a milrinone drip. Got pernission for a central line from the son given all the drips Objective General Appearance: no apparent distress Head: normocephalic, atraumatic Eyes: no discharge, sclerae normal, conjunctivae normal ENT: no pharyngeal edema. He has the BIPAP on all the time Neck: normal range of motion, supple Respiratory: crackles bilaterally Cardiovasular: regular rate/rhythm, systolic murmur (grade 1-2/6), other ( sternotomy clean scar in midline) Abdomen: non tender, normal bowel sounds, no rebound, no guarding Genitourinary - Male: external genitalia normal Back: normal inspection, no CVA tenderness Upper Extremities: no edema, other (there is no edema in the LE but he has skin changes of vascular in sufficiency) Lower Extremities: +1 edema, other (skin changes of vascular in sufficicency) Pulses: radial (R) (1+), radial (L), dorsalis pedis (R) (1+), dorsalis pedis (L ) (1+) Neuro: alert, global weakness (motor power is 4/5 but no focal deficits) Current SOFA Score SOFA Score Response (Comments) Value PaO2/FiO2 (mmHg) < 400 1 SaO2 / FIO2 221 - 301 1 Platelets (x10) > 150 0 Bilirubin (mg/dL) 1.2 - 1.9 1 Geneva Coma Score 15 0 Level of Hypotension MAP less than 70 1 Creatinine (mg/dL) 1.2 - 1.9 1 Total 5 Previous SOFA Scores 4 Assessment & Plan 85 yo male with known history of coronary artery disease HFeEF, s/p stent and CABG in 1982, FILIBERTO, smoking history and ? COPD admitted with (1) acute on chronic hypoxic respiratory failure necessitating NIPPV with a BIPAP. likely due to (2) Flash pulmonary edema . It is less likely that he aspirates. Swallow eval is in progress. Pulm edema is likely precipitated by a (3) NSTEMI, the evidence for which is in the rising troponin (4) this all is on a backgroud of CHF specifically HFrFH or acute on chronic systolic heart failure (5) FILIBERTO and (6) CKD are important comorbidities 1- neurologic cont sertraline 2- respiratory decrease FiO2 to target SPO2 >94% increased lasix to a drip to no avail. He dropped his MAP FILIBERTO continue the BIPAP pressure setting /8 per sleep study done 04/08/2016 over night and PRN for respiratory distress in the am 3- cardiovascular lasix drip at 4 mg/hr now continue plavix and aspirin a IV heparin for one more day. Will stop for 1-[address] a central line then resume it. Daily ECG and if he develops CP troponin peaked at 1.2 and is downtrending now cardiology is following metoprolol to 25 mg BID continue atorvastatin 80 mg daily continue imdur K and Cr improved remarkably enalaprilat tried together with spironolactone with no meaningful response yet add milrinone adjested rate to 0.33 mcg/Kg/min for a current GFR of 30 ml Target a HR in the low 60s and a MAP 60-65 4- GI diabetic diet pantoprazole 40 mg daily on board 5- [place] [address]+ and his I/O cumulative is + 1224 over 2 days despite the lasix UO is 0.57ml/Kg BW-hr but has dropped today 1 liter of fluid restriction daily continue finasteride melrinone as above aim at -500 ml balance and UO 0.5-1 ml/Kg BW-hr ID for 3 days would use vancomycin, levaquin and aztreonam. Sputum culture showed polymicrobial pattern on G stain await culture U Cx 1000 microorganism /HPF and is as such non significant growth. blood cultures no growth today Will stop antibiotics tomorrow if no growth 7- DVT prophyalxis on IV heparin. 8- endocrine insulin sliding scale with phramacy consult Sugar <180 Lines peripheral IVs would remove lujan once pt is stable. no central lines Will place a central line today Patient is critically ill and needs monitoring in the MICU until he is back to baseline patient is DNR / DNI. I spoke to his son and explained we are really maxed out on medical therapy. We have tried all classes to get him to improve to no avail. Although he is had a recent NSTEMI will use an inotrope. The choice of milrinone is because it does not interact with beta blockers and we can increase beta blockade to achieve HR in the low 60s total CC time is 55minutes Consults & Procedures Consultants: Tobias Gonzalez and Alvarez from cardiology Procedures: none Data Medications: Current Inpatient Medications Medications (Trade) Dose Ordered Sig/Vijay Route Start Time Stop Time Status Last Admin Dose Admin Vancomycin HCl (Consult) 1 ea UD PRN N/A 11/21/16 02:34 12/21/16 02:33 Glucose (Glucose 40% Gel) 15-30 GRAMS 15 GRAMS... UD PRN PO 11/21/16 01:00 12/21/16 00:59 Glucose (Glucose Chew Tab) 4-8 Tablets 4 Tabl... UD PRN PO 11/21/16 01:00 12/21/16 00:59 Dextrose (Dextrose 50% 50ML Syringe) 25-50ML OF 50% DW IV FOR... UD PRN IV 11/21/16 01:00 12/21/16 00:59 Glucagon (Glucagon Inj) 1 mg UD PRN SQ 11/21/16 01:00 12/21/16 00:59 Miscellaneous Information (Consult Glycemic Management Pharmacy) 1 ea UD PRN N/A 11/21/16 03:03 12/21/16 03:02 Allopurinol (Zyloprim Tab) 300 mg QAM PO 11/21/16 09:00 12/21/16 08:59 11/23/16 09:00 300 MG Aspirin (Ecotrin Tab) 81 mg QAM PO 11/21/16 09:00 12/21/16 08:59 11/23/16 08:58 81 MG Atorvastatin Calcium (Lipitor Tab) 80 mg HS PO 11/21/16 21:00 12/21/16 20:59 11/22/16 21:52 80 MG Clopidogrel Bisulfate (plAVix TAB) 75 mg QAM PO 11/21/16 09:00 12/21/16 08:59 11/23/16 08:59 75 MG Senna (Senokot Tab) 8.6 mg QAM PO 11/21/16 09:00 12/21/16 08:59 11/23/16 09:00 8.6 MG Acetaminophen 650 mg 650 mg Q4H PRN PO 11/21/16 01:15 12/21/16 01:14 Pantoprazole Sodium/Syringe (Protonix Inj/ Syringe) 10 ml @ 5 mls/min DAILY@1100 IV 11/21/16 11:00 12/21/16 10:59 11/23/16 11:19 5 MLS/MIN Levofloxacin 1 ea 1 ea UD PRN N/A 11/21/16 02:45 12/21/16 02:44 Levofloxacin/Prmx (Levaquin / D5W/ Premixed D5W) 150 ml @ 100 mls/hr Q48H IV 11/22/16 22:00 11/27/16 21:59 11/22/16 21:52 100 MLS/HR Finasteride 5 mg 5 mg QAM PO 11/21/16 09:00 12/21/16 08:59 11/23/16 08:59 5 MG Furosemide 40 mg/ Syringe 4 ml @ 4 mls/min BID17 IV 11/21/16 17:00 12/21/16 16:59 Future Hold 11/22/16 17:05 4 MLS/MIN Heparin Sodium/ Dextrose 500 ml @ 16 mls/hr Q24H PRN IV 11/21/16 16:30 12/21/16 16:29 11/22/16 22:26 16 MLS/HR Cefepime HCl/ Dextrose (Maxipime IV/D5 100ml) 112.5 ml @ 200 mls/hr Q12H IV 11/22/16 11:00 11/29/16 10:59 11/23/16 11:18 200 MLS/HR Cefepime HCl (Consult) 1 ea UD PRN N/A 11/22/16 10:45 12/22/16 10:44 Isosorbide Mononitrate (Imdur Ext Rel Tab) 60 mg QAM PO 11/23/16 09:00 12/23/16 08:59 11/23/16 08:59 60 MG Sertraline HCl (Zoloft Tab) 50 mg QAM PO 11/23/16 09:00 12/23/16 08:59 11/23/16 09:00 50 MG Insulin Aspart SLIDING SCALE If C... ACHS SC 11/22/16 16:00 12/22/16 15:59 Furosemide/ Dextrose (Lasix Inj/D5 100ml) 100 ml @ 8 mls/hr [id number] IV 11/23/16 07:45 12/23/16 07:44 11/23/16 09:01 8 MLS/HR Spironolactone (Aldactone Tab) 25 mg QAM PO 11/23/16 09:00 12/23/16 08:59 11/23/16 08:58 25 MG Metoprolol Tartrate (Lopressor Tab) 25 mg BID PO 11/23/16 09:00 12/23/16 08:59 11/23/16 08:59 25 MG Sitagliptin Phosphate 50 mg 50 mg DAILY PO 11/23/16 10:00 12/23/16 09:59 Future hold Vancomycin HCl 1350 mg/Sodium Chloride 277 ml @ 125 mls/hr Q24H IV 11/23/16 12:00 11/27/16 23:59 11/23/16 11:32 125 MLS/HR Milrinone Lactate/ Dextrose 22378 mcg/Prmx 100 ml @ 9.91 mls/hr Q10H6M STAT IV 11/23/16 11:24 11/23/16 21:29 UNV Milrinone Lactate/ Dextrose/Syringe (Primacor / D5w/ Syringe) 0 ml @ 0 mls/min NOW STAT IV 11/23/16 11:24 11/23/16 11:25 UNV I & O: 24-Hour Column 11/23/16 08:00 Intake Total 2010 ml Output Total 1350 ml Balance 660 ml Vital Signs: Date Time Temp Pulse Resp B/P Pulse Ox O2 Delivery O2 Flow Rate FiO2 11/23/16 10:46 77 24 92/51 91 BiPAP 30 11/23/16 10:31 78 28 86/45 91 BiPAP 30 11/23/16 10:17 86 28 75/37 90 BiPAP 30 11/23/16 10:02 83 22 81/51 92 BiPAP 30 11/23/16 09:01 96 31 122/75 94 BiPAP 30 11/23/16 08:01 35.9 98 32 114/73 92 BiPAP 30 11/23/16 08:00 BiPAP 30 11/23/16 07:01 89 27 113/66 94 BiPAP 30 11/23/16 05:01 84 47 118/69 91 BiPAP 30 11/23/16 04:01 36.6 81 24 122/70 93 BiPAP 30 11/23/16 04:00 BiPAP 30 11/23/16 03:01 84 24 125/69 93 BiPAP 30 11/23/16 02:01 91 34 111/74 86 BiPAP 30 11/23/16 01:01 85 27 118/66 92 BiPAP 30 11/23/16 00:01 36.5 84 22 118/68 94 BiPAP 30 11/23/16 00:01 BiPAP 30 11/22/16 23:01 85 18 115/64 93 BiPAP 30 11/22/16 22:10 76 20 107/65 91 BiPAP 30 11/22/16 20:16 36.6 82 24 104/58 92 BiPAP 30 11/22/16 20:08 80 95 30 11/22/16 20:00 BiPAP 30 11/22/16 18:00 79 22 117/56 96 Nasal Cannula 4.0 11/22/16 16:00 36.4 75 26 114/63 96 Nasal Cannula 4.0 11/22/16 16:00 Nasal Cannula 4.0 11/22/16 14:00 36.3 83 22 115/78 96 Nasal Cannula 4.0 11/22/16 12:00 Nasal Cannula 4.0 11/22/16 12:00 36.4 83 22 107/83 98 Nasal Cannula 4.0 Laboratory Results: Last 24 Hours Test 11/22/16 11:54 11/22/16 13:51 11/22/16 16:14 11/22/16 18:14 Bedside Glucose 167 mg/dl 137 mg/dl Activated Partial Thromboplast Time 75.3 SECONDS > 300.0 SECONDS Partial Thromboplastin Ratio 2.9 > 11.0 Test 11/22/16 20:51 11/22/16 20:58 11/22/16 22:00 11/23/16 03:50 Bedside Glucose 164 mg/dl Activated Partial Thromboplast Time 54.4 SECONDS 48.1 SECONDS Partial Thromboplastin Ratio 2.1 1.9 Creatine Kinase MB 5.2 ng/ml Creatine Kinase MB Ratio Troponin I 0.394 ng/ml White Blood Count 14.28 K/uL Red Blood Count 3.16 M/uL Hemoglobin 9.4 g/dL Hematocrit 28.6 % Mean Corpuscular Volume 90.5 fL Mean Corpuscular Hemoglobin 29.7 pg Mean Corpuscular Hemoglobin Concent 32.9 g/dl Platelet Count 380 K/uL Mean Platelet Volume 8.7 fL Neutrophils (%) (Auto) 75.9 % Lymphocytes (%) (Auto) 6.4 % Monocytes (%) (Auto) 13.0 % Eosinophils (%) (Auto) 3.7 % Basophils (%) (Auto) 0.2 % Neutrophils # (Auto) 10.84 K/uL Lymphocytes # (Auto) 0.91 K/uL Monocytes # (Auto) 1.86 K/uL Eosinophils # (Auto) 0.53 K/uL Basophils # (Auto) 0.03 K/uL RDW Standard Deviation 54.4 fL RDW Coefficient of Variation 16.4 % Immature Granulocyte % (Auto) 0.8 % Immature Granulocyte # (Auto) 0.11 K/uL Sodium Level 133 mmol/L Potassium Level 3.7 mmol/L Chloride Level 98 mmol/L Carbon Dioxide Level 26 mmol/L Anion Gap 9.0 mmol/L Blood Urea Nitrogen 59 mg/dl Creatinine 1.90 mg/dl Est Creatinine Clear Calc Drug Dose 31.1 ml/min Estimated GFR () 35.9 Estimated GFR (Non- 31.0 BUN/Creatinine Ratio 31.3 Random Glucose 116 mg/dl Calcium Level 8.1 mg/dl Phosphorus Level 3.2 mg/dl Magnesium Level 2.6 mg/dl Random Vancomycin Level 21.2 mcg/ml Test 11/23/16 05:31 11/23/16 08:38 11/23/16 10:03 Creatine Kinase MB 5.8 ng/ml Creatine Kinase MB Ratio Troponin I 0.337 ng/ml Activated Partial Thromboplast Time 54.6 SECONDS Partial Thromboplastin Ratio 2.1 Bedside Glucose 155 mg/dl
[2016-11-23] MEDS ORDERED: AMIODARONE IV BOLUS / DRIP IV STA (13:41)
[2016-11-23] MEDS ORDERED: SODIUM CHLORIDE 0.9% 500ML 500 ML IV ONE (13:45)
[2016-11-23 14:25] LABS: PARTIAL THROMBOPLASTIN RATIO 1.6
--- NOTE | 2016-11-23 16:21 | Procedure Note ---
Procedure Note Date of Service November 23, 2016. (Jhon Burns MD) Procedure Note Pre-Procedure Diagnosis: Acute Congestive Heart Failure Post-Procedure Diagnosis: Same Type of Procedure: Central Venous Catheter Placement Performing Physician: Dr. Jhon Burns, PGY2 Family Medicine Attending/Supervising Physician: Dr. Jared Lopez, Critical Care Attending Physician Indication: Need for multiple vasoactive medications Consent: Detailed explanation of the procedure, treatment options, risks including but not limited to infection and bleeding, and benefits were explained to the patient and family. A written informed consent was obtained and placed in the patient's chart. Technique: A time out was preformed identifying the correct procedure, the correct location with the nursing staff. The left neck was prepped with 2% chlorhexidine and draped with a full length sterile sheet in the usual fashion. 1% lidocaine was administered subcutaneously for local anesthesia. The left internal jugular vein was accessed under ultrasound guidance with an 18 gauge thin wall needle. There was initial difficulty accessing the vein due to intravascular depletion result in small hematoma formation. A triple lumen was inserted via the Seldinger technique. Blood was withdrawn from all lumens and flushed with normal saline. The catheter was sutured in place and a sterile dressing was applied over the site prior to removal of drapes. The patient tolerated the procedure well and there were no complications. Chest x ray is pending at this time. EBL: 5 cc Complication: Small hematoma formation (Jhon Burns MD) I was present and assisted throughout the procedure Post procedure CXR shows no pneumothorax and tip of the catheter overlying the innominate vein (Sakina Lopez MD)
--- NOTE | 2016-11-23 16:53 | DIAGNOSTIC IMAGING REPORT ---
SINGLE VIEW CHEST CLINICAL HISTORY: Central venous catheter placement. FINDINGS: An AP, portable, upright chest radiograph is compared to study performed earlier the same day 11/23/2016. The examination is degraded by portable technique and patient rotation. A left internal jugular central venous catheter has been placed. The tip of the catheter projects over the confluence of the innominate veins. The heart is enlarged and there is atherosclerotic calcification of the thoracic aorta. There is evidence of congestive failure. Diffuse bilateral airspace opacities are identified. There are small pleural effusions with bibasilar consolidation. No pneumothorax is seen. The skeletal structures are osteopenic. The bony thorax is grossly intact. Degenerative change is seen throughout the thoracic spine. IMPRESSION: 1. A left internal jugular central venous catheter has been placed as detailed above. No pneumothorax is seen post procedure. 2. Cardiomegaly with evidence of congestive failure. 3. Diffuse bilateral airspace opacities are similar to previous and likely represent interstitial edema. Correlate clinically for evidence of superimposed pneumonia. 4. Small pleural effusions. Electronically signed by: Dm Reeves M.D. 11/23/2016 4:51 PM Dictated Date/Time: 11/23/2016 4:49 PM
[2016-11-23] MEDS: ATORVASTATIN 40 MG TAB PO SCH (21:51)
[2016-11-23] MEDS ORDERED: NOREPINEPHRINE BIT INJ 8 MG in DEXTROSE 5% 500ML 500 ML IV PRN (23:45)
[2016-11-24] VITALS (69 sets, daily range): BP systolic 71–120; BP diastolic 44–75; PULSE 96–141; TEMP 36.3–36.6; O2SAT 83–98
[2016-11-24] MEDS ORDERED: NURSING VERBAL MED ORDER ONE
[2016-11-24 00:12] LABS: PARTIAL THROMBOPLASTIN RATIO 2.1
[2016-11-24 01:30] LABS: HEMATOCRIT 27.9 % (42-52); MEAN CELL VOLUME 90.9 fL (80-100); MEAN CORPUSCULAR HGB CONC 31.9 g/dl (32-36); MEAN PLATELET VOLUME 8.3 fL (7.4-10.4); PLATELET COUNT 425 K/uL (130-400); RED BLOOD COUNT 3.07 M/uL (4.7-6.1); WHITE BLOOD COUNT 18.55 K/uL (4.8-10.8)
[2016-11-24 01:49] LABS: BUN/CREATININE RATIO 24.9 (10-20); CALCIUM 7.8 mg/dl (8.5-10.1); CREATININE 2.7 mg/dl (0.60-1.40); MAGNESIUM 2.5 mg/dl (1.8-2.4); POTASSIUM 4.2 mmol/L (3.5-5.1)
[2016-11-24 01:51] LABS: BASO % 0.2 %; BASO ABS # 0.03 K/uL (0-0.2); COMPLETE YES; EOS % 0.4 %; IG% 0.8 %; LYMPH % 7.1 %; LYMPH ABS # 1.32 K/uL (1.2-3.4); NEUT % 81.5 %; POLYCHROMASIA 1+
[2016-11-24] MEDS: INSULIN ASPART 100 UNITS/ML 3 ML PEN SC SCH ×4 (06:45→20:53)
[2016-11-24] MEDS: ALLOPURINOL 300 MG TAB PO SCH ×2 (07:51→08:57)
[2016-11-24] MEDS: ASPIRIN 81 MG ECTAB PO SCH ×2 (07:52→08:55)
[2016-11-24] MEDS: METOLAZONE 5 MG TAB PO SCH ×2 (07:53→08:56)
[2016-11-24] MEDS: FINASTERIDE 5 MG TAB PO SCH ×2 (07:54→08:56)
[2016-11-24] MEDS: SPIRONOLACTONE 25 MG TAB PO SCH ×2 (07:55→08:03)
[2016-11-24] MEDS: SENNA 8.6 MG TAB PO SCH ×2 (07:55→08:56)
[2016-11-24] MEDS: CLOPIDOGREL BISULFATE 75 MG TAB PO SCH ×2 (07:55→08:55)
[2016-11-24] MEDS: SERTRALINE HCL 50 MG TAB PO SCH ×2 (07:56→08:57)
[2016-11-24] MEDS: ISOSORBIDE MONONITRATE 60 MG TABCR PO SCH (08:03)
[2016-11-24] MEDS: HYDROCORTISONE IV 100 MG in SYRINGE 0 ML IV SCH ×2 (08:03→16:53)
[2016-11-24] MEDS: METOPROLOL TARTRATE 25 MG TAB PO SCH ×2 (08:03→20:34)
[2016-11-24] MEDS: VASOPRESSIN INJ 50 UNITS in SODIUM CHLORIDE 0.9% 500ML 500 ML IV SCH (08:31)
[2016-11-24] MEDS: FUROSEMIDE INJ 100 MG in DEXTROSE 5% 100ML 90 ML IV SCH (08:45)
[2016-11-24] MEDS: LINEZOLID / D5W 600 MG in PREMIXED IN D5W 300 ML IV SCH ×2 (09:05→20:46)
[2016-11-24 09:13] LABS: PARTIAL THROMBOPLASTIN RATIO 1.9
--- NOTE | 2016-11-24 09:18 | Critical Care Progress Note ---
Critical Care Progress Note Date of Service Nov 24, 2016. ICU Day ICU Day Number: [address] Lopez Subjective Patient was admitted on 11/21/16 to ICU with acute respiratory failure secondary to CHF and NSTEMi. He has been dependent on Bipap most of the time. Lasix IV then drip did not result in a negative fluid balance. Milrinone was added to no avail in increasing UO> Patients Cr is worsened. He did not tolerate CHARO inhibitors or spironolactone and overnight became hypotensive. We had to stop milrinone, lasix, and start levophed and at this point he is 0.12 mcg/Kg/min He is refusing all meds this am and is complaining of SOB although on BIPAP with 60% FIO2 12/. We await Dr Ewing's input. The family had asked for a nephrology eval. I and Dr Bravo discussed palliative care with the son at the bedside. The patient has voiced he just wants to be left to . THe son is consulting with his siblings on this matter at this point. Objective General Appearance: no apparent distress Head: normocephalic, atraumatic Eyes: no discharge, sclerae normal, conjunctivae normal ENT: no pharyngeal edema. He has the BIPAP on all the time Neck: normal range of motion, supple Respiratory: crackles bilaterally Cardiovasular: regular rate/rhythm, systolic murmur (grade 1-2/6), other ( sternotomy clean scar in midline) Abdomen: non tender, normal bowel sounds, no rebound, no guarding Genitourinary - Male: external genitalia normal Back: normal inspection, no CVA tenderness Upper Extremities: no edema, other (there is no edema in the LE but he has skin changes of vascular in sufficiency) Lower Extremities: +1 edema, other (skin changes of vascular in sufficicency) Pulses: radial (R) (1+), radial (L), dorsalis pedis (R) (1+), dorsalis pedis (L ) (1+) Neuro: alert, global weakness (motor power is 4/5 but no focal deficits) Current SOFA Score SOFA Score Response (Comments) Value PaO2/FiO2 (mmHg) < 200 3 SaO2 / FIO2 142 - 220 2 Platelets (x10) > 150 0 Bilirubin (mg/dL) 2.0 - 5.9 2 Geneva Coma Score 15 0 Level of Hypotension Dopamine > 5 mcq or Epi < 0.1 mcq 3 Creatinine (mg/dL) 1.2 - 1.9 1 Total 11 Previous SOFA Scores 4 Assessment & Plan 85 yo male with known history of coronary artery disease HFeEF, s/p stent and CABG in 1982, FILIBERTO, admitted with (1) acute on chronic hypoxic respiratory failure necessitating NIPPV with a BIPAP. likely due to (2) Flash pulmonary edema . It is less likely that he aspirates. Swallow eval is in progress. Pulm edema is likely precipitated by a (3) NSTEMI, the evidence for which is in the rising troponin (4) this all is on a backgroud of CHF specifically HFrFH or acute on chronic systolic heart failure (5) FILIBERTO and (6) CKD are important comorbidities 1- neurologic cont sertraline (of he accepts oral meds) 2- respiratory titrate FiO2 to target SPO2 >94% and RR <25/min attempted zaroxylin. The patient refuses any oral meds at this point. FILIBERTO continue the BIPAP pressure setting /8 per sleep study done 04/08/2016 over night and PRN for respiratory distress in the am The patient and family are not aggreeable at all to intubation and MV despite multiple discussions. They are aware that this may lead to . 3- cardiovascular lasix drip held due to hypotension. If his BP stabilizes will go back to IV injections 40-60 Q8 continue plavix and aspirin IV heparin held given slow drop in his Hb. Technically his Hb needs to be >9 given cardiac status but he is in severe overload and further IV expansion may be very detrimental for his respiratory status. Will observe Hb level closely Daily ECG and if he develops CP troponin peaked at 1.2 and is downtrending now cardiology is following metoprolol held due to hypotension continue atorvastatin 80 mg daily if he agrees to PO pills Hold imdur due to hypotension Will attempt hydrocortison, and vasopressin if levophed is not enough to control BP. He has staph aureus in the sputum Levophed drip Target MAP 60-65 4- GI diabetic diet if he is off BIPAP. At this point we will not resort to NG feed. pantoprazole 40 mg daily on board 5- [place] [address]+ and his I/O cumulative is +2 lit over 3 days despite the lasix, milrinone spironolactone. Await nephrology input UO is 0.31ml/Kg BW-hr but has dropped today 1 liter of fluid restriction daily continue finasteride ID Added Zyvox to his regimen in lieu of vancomycin, levaquin and cefepime today. If urine culture is clean then we would hold cefepime. Sputum culture showed polymicrobial pattern and grew staph on admission U Cx 1000 microorganism /HPF and is as such non significant growth. Repeat culture blood cultures no growth today repeat Bld Cultures given rise in WBC to 18K from 15K 7- DVT prophyalxis on will resume SC heparin 8- endocrine insulin sliding scale with phramacy consult Sugar <180 Lines peripheral IVs placed a central line 11/23 left IJ. Has lujan cath but needs it at this point Patient is critically ill and needs monitoring in the MICU until he is back to baseline patient is DNR / DNI. I spoke to his son and explained we are really maxed out on medical therapy. The patient has very poor prognosis and palliative care evaluation is very reasonable at this point total CC time is 55minutes Consults & Procedures Consultants: Tobias Gonzalez and Alvarez from cardiology Procedures: none Data Medications: Current Inpatient Medications Medications (Trade) Dose Ordered Sig/Vijay Route Start Time Stop Time Status Last Admin Dose Admin Glucose (Glucose 40% Gel) 15-30 GRAMS 15 GRAMS... UD PRN PO 11/21/16 01:00 12/21/16 00:59 Glucose (Glucose Chew Tab) 4-8 Tablets 4 Tabl... UD PRN PO 11/21/16 01:00 12/21/16 00:59 Dextrose (Dextrose 50% 50ML Syringe) 25-50ML OF 50% DW IV FOR... UD PRN IV 11/21/16 01:00 12/21/16 00:59 Glucagon (Glucagon Inj) 1 mg UD PRN SQ 11/21/16 01:00 12/21/16 00:59 Miscellaneous Information (Consult Glycemic Management Pharmacy) 1 ea UD PRN N/A 11/21/16 03:03 12/21/16 03:02 Allopurinol (Zyloprim Tab) 300 mg QAM PO 11/21/16 09:00 12/21/16 08:59 11/23/16 09:00 300 MG Aspirin (Ecotrin Tab) 81 mg QAM PO 11/21/16 09:00 12/21/16 08:59 11/23/16 08:58 81 MG Atorvastatin Calcium (Lipitor Tab) 80 mg HS PO 11/21/16 21:00 12/21/16 20:59 11/23/16 21:51 80 MG Clopidogrel Bisulfate (plAVix TAB) 75 mg QAM PO 11/21/16 09:00 12/21/16 08:59 11/23/16 08:59 75 MG Senna (Senokot Tab) 8.6 mg QAM PO 11/21/16 09:00 12/21/16 08:59 11/23/16 09:00 8.6 MG Acetaminophen (Tylenol Tab) 650 mg Q4H PRN PO 11/21/16 01:15 12/21/16 01:14 Pantoprazole Sodium 40 mg/ Syringe 10 ml @ 5 mls/min DAILY@1100 IV 11/21/16 11:00 12/21/16 10:59 11/23/16 11:19 5 MLS/MIN Levofloxacin (Consult) 1 ea UD PRN N/A 11/21/16 02:45 12/21/16 02:44 Levofloxacin 750 mg/Prmx 150 ml @ 100 mls/hr Q48H IV 11/22/16 22:00 11/27/16 21:59 11/22/16 21:52 100 MLS/HR Finasteride (Proscar Tab) 5 mg QAM PO 11/21/16 09:00 12/21/16 08:59 11/23/16 08:59 5 MG Furosemide 40 mg/ Syringe 4 ml @ 4 mls/min [id number] IV 11/21/16 17:00 12/21/16 16:59 Future Hold 11/22/16 17:05 4 MLS/MIN Heparin Sodium/ Dextrose 500 ml @ 16 mls/hr Q24H PRN IV 11/21/16 16:30 12/21/16 16:29 11/22/16 22:26 16 MLS/HR Cefepime HCl 2000 mg/Dextrose 112.5 ml @ 200 mls/hr Q12H IV 11/22/16 11:00 11/29/16 10:59 11/23/16 21:52 200 MLS/HR Cefepime HCl (Consult) 1 ea UD PRN N/A 11/22/16 10:45 12/22/16 10:44 Isosorbide Mononitrate (Imdur Ext Rel Tab) 60 mg QAM PO 11/23/16 09:00 12/23/16 08:59 11/23/16 08:59 60 MG Sertraline HCl (Zoloft Tab) 50 mg QAM PO 11/23/16 09:00 12/23/16 08:59 11/23/16 09:00 50 MG Insulin Aspart (novoLOG ASPART) SLIDING SCALE If C... ACHS SC 11/22/16 16:00 12/22/16 15:59 Furosemide 100 mg/ Dextrose 100 ml @ 8 mls/hr [id number] IV 11/23/16 07:45 12/23/16 07:44 11/23/16 09:01 8 MLS/HR Spironolactone (Aldactone Tab) 25 mg QAM PO 11/23/16 09:00 12/23/16 08:59 11/23/16 08:58 25 MG Metoprolol Tartrate (Lopressor Tab) 25 mg BID PO 11/23/16 09:00 12/23/16 08:59 11/23/16 08:59 25 MG Sitagliptin Phosphate (Januvia Tab) 50 mg DAILY PO 11/23/16 10:00 12/23/16 09:59 Future Hold Milrinone Lactate/ Dextrose 74691 mcg/Prmx 100 ml @ 9.91 mls/hr Q10H6M IV 11/23/16 12:00 12/23/16 11:59 Future Hold 11/23/16 22:14 9.91 MLS/HR Metolazone (Zaroxolyn Tab) 5 mg QAM PO 11/24/16 09:00 12/24/16 08:59 Norepinephrine Bitartrate 8 mg/ Dextrose 508 ml @ 0 mls/hr Q0M PRN IV 11/23/16 23:50 12/23/16 23:49 Hydrocortisone Sodium Succinate 100 mg/Syringe 2 ml @ 4 mls/min Q8H IV 11/24/16 08:00 12/24/16 07:59 6/1/17 08:03 4 MLS/MIN Vasopressin 50 units/Sodium Chloride 502.5 ml @ 24 mls/hr [id number] IV 11/24/16 09:00 12/24/16 08:59 11/24/16 08:31 24 MLS/HR Linezolid 600 mg/ Prmx 300 ml @ 300 mls/hr Q12H IV 11/24/16 09:00 12/01/16 08:59 Vital Signs: Date Time Temp Pulse Resp B/P (MAP) Pulse Ox O2 Delivery O2 Flow Rate FiO2 11/24/16 07:34 109 95 55 11/24/16 06:06 110 32 81/53 (62) 94 BiPAP 55 11/24/16 05:26 111 95 55 11/24/16 04:00 96 BiPAP 55 11/24/16 04:00 36.3 105 31 96/51 (66) 96 BiPAP 55 11/24/16 03:16 106 38 84/50 (61) 96 11/24/16 03:01 108 33 79/55 (63) 95 11/24/16 02:46 108 32 84/51 (62) 95 11/24/16 02:31 109 34 84/55 (65) 95 11/24/16 02:16 108 32 83/50 (61) 95 11/24/16 02:01 108 34 81/54 (63) 95 11/24/16 01:46 111 36 76/50 (59) 94 11/24/16 01:31 108 32 77/48 (58) 95 11/24/16 01:18 120 94 55 11/24/16 01:16 107 34 72/48 (56) 94 11/24/16 01:01 106 34 74/52 (59) 93 11/24/16 00:46 108 32 71/52 (58) 93 11/24/16 00:39 105 32 75/44 (54) 93 11/24/16 00:31 107 33 74/44 (54) 92 11/24/16 00:16 109 35 80/46 (57) 94 11/24/16 00:01 115 34 77/47 (57) 93 11/24/16 00:00 92 BiPAP 55 11/23/16 23:46 109 33 66/43 (51) 84 11/23/16 23:46 109 33 66/43 (51) 90 55 11/23/16 23:45 108 35 87 11/23/16 23:40 105 33 89 55 11/23/16 23:36 107 33 68/43 (51) 91 11/23/16 23:35 107 35 89 55 11/23/16 23:31 105 35 60/43 (49) 94 11/23/16 23:30 106 35 93 11/23/16 23:27 105 88 45 11/23/16 23:25 106 23 75/43 (54) 94 11/23/16 23:25 106 23 75/43 (54) 94 11/23/16 23:21 102 36 79 11/23/16 23:17 107 33 87/56 (66) 90 11/23/16 23:16 108 37 90 11/23/16 23:11 106 33 90 11/23/16 23:06 107 32 91 11/23/16 23:02 107 33 90/53 (65) 90 11/23/16 23:01 108 35 91 11/23/16 22:56 110 33 91 11/23/16 22:51 109 34 90 11/23/16 22:47 110 35 106/53 (70) 90 11/23/16 22:46 111 32 91 11/23/16 22:41 113 35 91 11/23/16 22:36 112 34 90 11/23/16 22:32 107 30 109/65 (80) 86 11/23/16 22:31 112 33 86 11/23/16 22:26 110 33 91 11/23/16 22:21 118 32 91 11/23/16 22:16 117 37 87/47 (60) 89 11/23/16 22:16 117 37 87/47 (60) 89 11/23/16 22:11 107 35 87/48 (61) 93 11/23/16 22:01 108 30 80/56 (64) 92 11/23/16 21:01 100 30 88/56 (67) 93 11/23/16 20:16 101 23 76/52 (60) 94 11/23/16 20:02 36.9 96 31 92/53 (66) 94 11/23/16 20:00 BiPAP 45 11/23/16 19:55 97 93 45 11/23/16 17:46 87 25 86/46 (59) 92 BiPAP 45 11/23/16 17:16 87 28 96/52 (67) 89 BiPAP 40 11/23/16 16:48 74 94 30 11/23/16 16:44 36.3 85 24 79/42 (54) 93 BiPAP 40 11/23/16 16:16 83 27 83/44 (57) 92 BiPAP 40 11/23/16 16:02 92 26 89/49 (62) 93 BiPAP 40 11/23/16 16:00 BiPAP 40 11/23/16 15:46 85 27 94/51 (65) BiPAP 60 11/23/16 15:31 85 28 93/56 (68) 97 BiPAP 60 11/23/16 15:16 86 29 96/55 (69) 95 BiPAP 60 11/23/16 15:01 87 34 98/60 (73) 86 BiPAP 60 11/23/16 14:31 79 26 94/54 (67) 92 BiPAP 40 11/23/16 14:01 78 34 109/54 (72) 91 11/23/16 13:47 78 26 97/52 (67) 91 BiPAP 30 11/23/16 13:40 75 25 92/55 (67) 92 BiPAP 30 11/23/16 13:32 77 25 93/52 (66) 91 30 11/23/16 13:25 74 23 71/38 (49) 92 BiPAP 30 11/23/16 13:13 74 27 86/27 (46) 92 BiPAP 30 11/23/16 13:04 76 26 70/37 (48) 93 BiPAP 30 11/23/16 12:58 77 26 93/35 (54) 92 BiPAP 30 11/23/16 12:54 78 27 72/40 (51) 92 BiPAP 30 11/23/16 12:40 75 27 78/40 (53) 92 BiPAP 30 11/23/16 12:00 BiPAP 30 11/23/16 11:32 73 28 86/54 (65) 92 BiPAP 30 11/23/16 11:16 75 29 93/52 (66) 92 BiPAP 30 11/23/16 10:46 77 24 92/51 (65) 91 BiPAP 30 11/23/16 10:31 78 28 86/45 (59) 91 BiPAP 30 11/23/16 10:17 86 28 75/37 (50) 90 BiPAP 30 11/23/16 10:02 83 22 81/51 (61) 92 BiPAP 30 11/23/16 09:01 96 31 122/75 (91) 94 BiPAP 30 Laboratory Results: Last 24 Hours Test 11/23/16 10:03 11/23/16 14:00 11/23/16 14:06 11/23/16 16:34 Bedside Glucose 155 mg/dl 148 mg/dl Creatine Kinase MB Ratio Activated Partial Thromboplast Time 40.8 SECONDS Partial Thromboplastin Ratio 1.6 Creatine Kinase MB 4.8 ng/ml Troponin I 0.273 ng/ml Test 11/23/16 21:57 11/23/16 23:30 11/24/16 01:22 11/24/16 07:33 Bedside Glucose 140 mg/dl 193 mg/dl Activated Partial Thromboplast Time 55.1 SECONDS 52.5 SECONDS Partial Thromboplastin Ratio 2.1 2.0 White Blood Count 18.55 K/uL Red Blood Count 3.07 M/uL Hemoglobin 8.9 g/dL Hematocrit 27.9 % Mean Corpuscular Volume 90.9 fL Mean Corpuscular Hemoglobin 29.0 pg Mean Corpuscular Hemoglobin Concent 31.9 g/dl Platelet Count 425 K/uL Mean Platelet Volume 8.3 fL Neutrophils (%) (Auto) 81.5 % Lymphocytes (%) (Auto) 7.1 % Monocytes (%) (Auto) 10.0 % Eosinophils (%) (Auto) 0.4 % Basophils (%) (Auto) 0.2 % Neutrophils # (Auto) 15.12 K/uL Lymphocytes # (Auto) 1.32 K/uL Monocytes # (Auto) 1.85 K/uL Eosinophils # (Auto) 0.08 K/uL Basophils # (Auto) 0.03 K/uL RDW Standard Deviation 53.7 fL RDW Coefficient of Variation 16.3 % Immature Granulocyte % (Auto) 0.8 % Immature Granulocyte # (Auto) 0.15 K/uL Nucleated RBC Absolute Count (auto) 0.02 K/uL Nucleated Red Blood Cells % 0.1 % Polychromasia 1+ Sodium Level 134 mmol/L Potassium Level 4.2 mmol/L Chloride Level 98 mmol/L Carbon Dioxide Level 23 mmol/L Anion Gap 13.0 mmol/L Blood Urea Nitrogen 67 mg/dl Creatinine 2.70 mg/dl Est Creatinine Clear Calc Drug Dose 22.1 ml/min Estimated GFR () 23.5 Estimated GFR (Non- 20.3 BUN/Creatinine Ratio 24.9 Random Glucose 168 mg/dl Lactic Acid Level 1.9 mmol/L Calcium Level 7.8 mg/dl Magnesium Level 2.5 mg/dl Test 11/24/16 08:40
--- NOTE | 2016-11-24 10:22 | Cardiology Follow-Up ---
Subjective General Date of Service: Nov 24, 2016. Chief Complaint: follow up shortness of breath Pt evaluation today including: conversation w/ patient, conversation w/ family , physical exam, conversation w/ [employer] iam consultant History of Present Illness The patient is a 85 year old male seen in follow up. Since yesterday am, pt's rhythm has now changed to AF mildly elevated V rates in the 110 bpm range. Hypotension occurred prompting addition of norepinephrine and recently vasopressin. Renal function is worse. Pt is in bed on bipap and is not responsive to voice prompts. Son is at the bedside having stayed last night. Allergies Coded Allergies: Zolpidem (Verified Allergy, Severe, SOB, MUSCLES "LOCK UP" PER [facility], ) DELIRIUM. Confusion. Insomnia. Insulin Aspart (Verified Adverse Reaction, Intermediate, REDDENED RASH ALL OVER BODY, 11/03/16) Amoxicillin (Verified Adverse Reaction, Unknown, NIGHTMARES, 11/03/16) Social History Smoking Status: Unknown if Ever Smoked Hx Tobacco Use In Past Year?: No Hx Alcohol Use - Type And Amou: No Hx Substance Use - Type And Am: No Problem List Medical Problems: (1) Acute renal failure Status: Acute (2) Altered mental status Status: Acute (3) Elevated troponin Status: Acute (4) Elevated TSH Status: Acute (5) Generalized weakness Status: Acute (6) Hyperkalemia Status: Acute (7) Hypoglycemia Status: Acute (8) Hypoxemia Status: Acute (9) Pulmonary edema Status: Acute (10) Sepsis Status: Acute (11) Swelling of left lower extremity Status: Acute (12) Urinary tract infection Status: Acute Physical Exam Vital Signs Last Vital Signs Documentation Date Time Temp Pulse Resp B/P (MAP) Pulse Ox O2 Delivery O2 Flow Rate FiO2 11/24/16 09:17 126 33 120/68 (85) 83 BiPAP 60 11/24/16 07:32 36.4 11/22/16 18:00 4.0 Physical Exam Constitutional: Level of Distress: acutely ill, chronically ill Neck: supple Lungs: Auscultation: pertinent finding (bilateral rales Left worse than right ) Cardiovascular: Heart Auscultation: RRR, no murmurs Extremities: pertinent finding (trace BL LE edema ) Neurologic: Gait & Station: pertinent finding (lethargic) Assessment and Plan Assessment and Plan Impression: 1. Acute on chronic systolic heart failure, NSTEMI, low output cardiogenic shock 2. 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 3 hospitalizations 06/2016 and twice this month, and LVEF has declined further on each measurements, and is now down to the 20-25% range. Still with pulmonary edema despite lasix infusion. Continue heparin as well as ASA, plavix. metoprolol and ACEI on hold due to low BP. We discussed adding dobutamine for inotropic support, but we'll hold this reserve, due to concerns that it will induce tachycardia and ischemia rather than inotropic benefits. Pt DNR, elects for conservative management and I would predict that cath would be of low yield and that CAD prompting medical treatment would be found regardless. Prognosis is poor. Son agreeable to another 24 hours of aggressive care and if no improvement , may transition to comfort care. Laboratory Results Last 24 Hours Test 11/23/16 14:00 11/23/16 14:06 11/23/16 16:34 11/23/16 21:57 Creatine Kinase MB Ratio Activated Partial Thromboplast Time 40.8 SECONDS Partial Thromboplastin Ratio 1.6 Creatine Kinase MB 4.8 ng/ml Troponin I 0.273 ng/ml Bedside Glucose 148 mg/dl 140 mg/dl Test 11/23/16 23:30 11/24/16 01:22 11/24/16 07:33 11/24/16 08:40 Activated Partial Thromboplast Time 55.1 SECONDS 52.5 SECONDS 49.6 SECONDS Partial Thromboplastin Ratio 2.1 2.0 1.9 White Blood Count 18.55 K/uL Red Blood Count 3.07 M/uL Hemoglobin 8.9 g/dL Hematocrit 27.9 % Mean Corpuscular Volume 90.9 fL Mean Corpuscular Hemoglobin 29.0 pg Mean Corpuscular Hemoglobin Concent 31.9 g/dl Platelet Count 425 K/uL Mean Platelet Volume 8.3 fL Neutrophils (%) (Auto) 81.5 % Lymphocytes (%) (Auto) 7.1 % Monocytes (%) (Auto) 10.0 % Eosinophils (%) (Auto) 0.4 % Basophils (%) (Auto) 0.2 % Neutrophils # (Auto) 15.12 K/uL Lymphocytes # (Auto) 1.32 K/uL Monocytes # (Auto) 1.85 K/uL Eosinophils # (Auto) 0.08 K/uL Basophils # (Auto) 0.03 K/uL RDW Standard Deviation 53.7 fL RDW Coefficient of Variation 16.3 % Immature Granulocyte % (Auto) 0.8 % Immature Granulocyte # (Auto) 0.15 K/uL Nucleated RBC Absolute Count (auto) 0.02 K/uL Nucleated Red Blood Cells % 0.1 % Polychromasia 1+ Sodium Level 134 mmol/L Potassium Level 4.2 mmol/L Chloride Level 98 mmol/L Carbon Dioxide Level 23 mmol/L Anion Gap 13.0 mmol/L Blood Urea Nitrogen 67 mg/dl Creatinine 2.70 mg/dl Est Creatinine Clear Calc Drug Dose 22.1 ml/min Estimated GFR () 23.5 Estimated GFR (Non- 20.3 BUN/Creatinine Ratio 24.9 Random Glucose 168 mg/dl Lactic Acid Level 1.9 mmol/L Calcium Level 7.8 mg/dl Magnesium Level 2.5 mg/dl Bedside Glucose 193 mg/dl Cortisol AM Sample 39.61 mcg/dl
[2016-11-24] MEDS: PANTOprazole INJ 40 MG in SYRINGE 0 ML IV SCH (11:33)
[2016-11-24] MEDS: CEFEPIME IV 2,000 MG in DEXTROSE 5% 100ML 100 ML IV SCH (11:33)
[2016-11-24] MEDS ORDERED: INSULIN GLARGINE SOLOSTAR 100 UNITS/ML 3 ML PEN SC SCH (12:15)
--- NOTE | 2016-11-24 12:17 | Pharmacy Progress Note ---
Glycemic Control: Progress Nt Date of Service Nov 24, 2016. Scope Glycemic Pharmacist consulted by Dr Ledbetter on 11/21/16 for glycemic control and to write orders per [facility] inpatient glycemic control protocol. Objective Accuchecks BSG (last 24hrs): Test 11/23/16 16:34 11/23/16 21:57 11/24/16 01:22 11/24/16 07:33 Bedside Glucose 148 mg/dl (70-99) 140 mg/dl (70-99) 193 mg/dl (70-99) Random Glucose 168 mg/dl (70-99) Laboratory Data (last 24hrs) Test 11/24/16 01:22 Anion Gap 13.0 mmol/L BUN/Creatinine Ratio 24.9 Blood Urea Nitrogen 67 mg/dl Creatinine 2.70 mg/dl Potassium Level 4.2 mmol/L Sodium Level 134 mmol/L White Blood Count 18.55 K/uL Red Blood Count 3.07 M/uL Hemoglobin 8.9 g/dL Hematocrit 27.9 % Mean Corpuscular Volume 90.9 fL Mean Corpuscular Hemoglobin 29.0 pg Mean Corpuscular Hemoglobin Concent 31.9 g/dl Platelet Count 425 K/uL Mean Platelet Volume 8.3 fL Neutrophils (%) (Auto) 81.5 % Lymphocytes (%) (Auto) 7.1 % Monocytes (%) (Auto) 10.0 % Eosinophils (%) (Auto) 0.4 % Basophils (%) (Auto) 0.2 % Neutrophils # (Auto) 15.12 K/uL Lymphocytes # (Auto) 1.32 K/uL Monocytes # (Auto) 1.85 K/uL Eosinophils # (Auto) 0.08 K/uL Basophils # (Auto) 0.03 K/uL Recent Pertinent Medications Outpatient Anti-diabetic Regimen: * Glucotrol XL * Januvia * A1c = 7.3 % 10/11/16 The patient is currently receiving: * Basal insulin: * Lantus 10 units x1 dose on 11/21 * Bolus insulin: * NovoLog SQ AC+HS - Goal Range: Low 140 mg/dL - High 180 mg/dL - Correction Factor: 25 mg/dL/unit - Carb ratio of 1 unit per 10 grams CHO consumed * Oral Agents: * held on admission Risk Factors for Insulin Resistance: * Steroids: hydrocortisone IV started today * Infection: sepsis secondary to pneumonia - current regimen includes linezolid , cefepime, and levofloxacin IV * IVF: heparin infusion (mixed in dextrose) * Pressors: norepinephrine, vasopressin * Diet: Poor PO intake Assessment & Plan ASSESSMENT: * ADA & AACE recommend a goal blood sugar range 140-180 mg/dl for the majority of critically ill & non-critically ill patients. However, more stringent targets may be selected in individual cases. 11/23/16 * Insulin has not been required over the past 24 hours with BSGs ranging from 123-167mg/dL * AM BSG today 116mg/dL * no indication for basal insulin at this time * PO intake poor due to SOB * will resume Januvia when PO intake improves * continue to hold sulfonylurea secondary to the hypoglycemic potential of that drug class * A1c is current 11/24/16 * Mr. Aparicio's condition is critical and declining. * He has been started on vasopressors, IV steroids, and antibiotics have been altered. * BSGs have began to rise. * Though the standard of care in the ICU is an insulin infusion, I will increase SQ basal/bolus doses of insulin first as Mr. Aparicio is also volume overloaded. * if BSGs do not appropriately respond to SQ insulin, would recommend an IV insulin infusion (goal 140-180mg/dL, moderate stress) PLAN FOR INPATIENT GLYCEMIC CONTROL: * Basal insulin: * Lantus 10 units SQ x1 now, then BID if BSG is > 180mg/dL * Bolus insulin: * Continue NovoLog SQ AC and HS --> q4 hours - Correction factor: 20mg/dL/unit - Carb ratio: 1 unit per 8 g of CHO consumed - Goal: 140-180mg/dL per ADA recommendations * Oral agents: * Hold Januvia 50mg PO daily - renally dosed for CrCl 30-50mL/min * Hold Glucotrol XL as above RECOMMENDATIONS FOR DISCHARGE: * Likely, Mr. Aparicio can continue his home regimen at discharge. * Please note that the plan above was derived based on current level of insulin resistance and hospital stress. These recommendations are appropriate for inpatient admission only. Plan of care upon discharge will need to be reassessed to avoid potential outpatient hypo/hyperglycemia. Thank you.
[2016-11-24] MEDS: NOREPINEPHRINE BIT INJ 8 MG in DEXTROSE 5% 500ML 500 ML IV PRN (12:32)
--- NOTE | 2016-11-24 13:09 | Nephrology Consultation ---
Nephrology Consultation Date of Consultation: Nov 24, 2016. Attending Physician: Dr Bravo Requesting Physician: Dr Bucio Reason for Consultation: CKD History of Present Illness 85 year old male w/ advanced proteinuric CKD 4 and w/ recent admission here 2 wks ago for NSTEMI and 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 admitted 11/21 for mgt of acute hypoxic respiratory failure w/ flash pulmonary edema and cool extremities after being found unresponsive at his nursing facility. Found to have acute HF, NSTEMI. His creatinine was at baseline of low 2's on d/c earlier this month and again on admission this time. Team has been working as aggressively as tolerated >> pt did not diurese w/ lasix gtt or milrinone gtt. Overnight he developed worsening hypotension and levophed was started; vasopressin was added. Overnight pt developed AF w/ heart rate in 110s; cardiology following closely for low output cardiogenic shock. Pt voiced consistently at last admission that he did not want chronic dialysis and had a palliative care c/s at that time. Currently pt stating he does not want further aggressive interventions; son and siblings consulting about this. he is this am refusing his pills and continues to feel short of breath on bipap. Creatinine today is up to 2.7 from 1.9 yesterday and pt trending toward oligoanuria. Despite aggressive attempts to diurese, he has been consistently fluid positive. Past Medical/Surgical History Medical Problems: (1) Acute renal failure Status: Acute (2) Altered mental status Status: Acute (3) Elevated troponin Status: Acute (4) Elevated TSH Status: Acute (5) Generalized weakness Status: Acute (6) Hyperkalemia Status: Acute (7) Hypoglycemia Status: Acute (8) Hypoxemia Status: Acute (9) Pulmonary edema Status: Acute (10) Sepsis Status: Acute (11) Swelling of left lower extremity Status: Acute (12) Urinary tract infection Status: Acute -CAD s/p CABG 1981, STEMI 2005 w/ stent and NSTEMI in 2015 and mid 10/2016 both managed medically -Moderate aortic stenosis and regurgitation. -ischemic cardiomyopathy with EF 30%-35% previously and now 25% at best and chronic angina -Chronic kidney disease, stage IV w/ proteinuria; follows w/ Dr Nice in CKD clinic; at least 2 other admissions in 2017 w/ ALIDA; baseline creatinine as of october was mid 2's -HL -prostatic hypertrophy -obesity -DM2 -FILIBERTO Family History cardiac dz; no renal dz Social History Smoking Status: Unknown if Ever Smoked Alcohol Use: none Drug Use: none Marital Status: Occupation Status: retired Allergies Coded Allergies: Zolpidem (Verified Allergy, Severe, SOB, MUSCLES "LOCK UP" PER [facility], ) DELIRIUM. Confusion. Insomnia. Insulin Aspart (Verified Adverse Reaction, Intermediate, REDDENED RASH ALL OVER BODY, 11/03/16) Amoxicillin (Verified Adverse Reaction, Unknown, NIGHTMARES, 11/03/16) Medications Current Inpatient Medications Medications (Trade) Dose Ordered Sig/Vijay Route Start Time Stop Time Status Last Admin Dose Admin Glucose (Glucose 40% Gel) 15-30 GRAMS 15 GRAMS... UD PRN PO 11/21/16 01:00 12/21/16 00:59 Glucose (Glucose Chew Tab) 4-8 Tablets 4 Tabl... UD PRN PO 11/21/16 01:00 12/21/16 00:59 Dextrose (Dextrose 50% 50ML Syringe) 25-50ML OF 50% DW IV FOR... UD PRN IV 11/21/16 01:00 12/21/16 00:59 Glucagon (Glucagon Inj) 1 mg UD PRN SQ 11/21/16 01:00 12/21/16 00:59 Miscellaneous Information (Consult Glycemic Management Pharmacy) 1 ea UD PRN N/A 11/21/16 03:03 12/21/16 03:02 Allopurinol (Zyloprim Tab) 300 mg QAM PO 11/21/16 09:00 12/21/16 08:59 11/23/16 09:00 300 MG Aspirin (Ecotrin Tab) 81 mg QAM PO 11/21/16 09:00 12/21/16 08:59 11/23/16 08:58 81 MG Atorvastatin Calcium (Lipitor Tab) 80 mg HS PO 11/21/16 21:00 12/21/16 20:59 11/23/16 21:51 80 MG Clopidogrel Bisulfate (plAVix TAB) 75 mg QAM PO 11/21/16 09:00 12/21/16 08:59 11/23/16 08:59 75 MG Senna (Senokot Tab) 8.6 mg QAM PO 11/21/16 09:00 12/21/16 08:59 11/23/16 09:00 8.6 MG Acetaminophen (Tylenol Tab) 650 mg Q4H PRN PO 11/21/16 01:15 12/21/16 01:14 Pantoprazole Sodium 40 mg/ Syringe 10 ml @ 5 mls/min DAILY@1100 IV 11/21/16 11:00 12/21/16 10:59 11/23/16 11:19 5 MLS/MIN Levofloxacin (Consult) [facility] PRN N/A 11/21/16 02:45 12/21/16 02:44 Levofloxacin 750 mg/Prmx 150 ml @ 100 mls/hr Q48H IV 11/22/16 22:00 11/27/16 21:59 11/22/16 21:52 100 MLS/HR Finasteride (Proscar Tab) 5 mg QAM PO 11/21/16 09:00 12/21/16 08:59 11/23/16 08:59 5 MG Furosemide 40 mg/ Syringe 4 ml @ 4 mls/min [id number] IV 11/21/16 17:00 12/21/16 16:59 Future Hold 11/22/16 17:05 4 MLS/MIN Heparin Sodium/ Dextrose 500 ml @ 16 mls/hr Q24H PRN IV 11/21/16 16:30 12/21/16 16:29 11/22/16 22:26 16 MLS/HR Cefepime HCl 2000 mg/Dextrose 112.5 ml @ 200 mls/hr Q12H IV 11/22/16 11:00 11/29/16 10:59 11/23/16 21:52 200 MLS/HR Cefepime HCl (Consult) [facility] PRN N/A 11/22/16 10:45 12/22/16 10:44 Isosorbide Mononitrate (Imdur Ext Rel Tab) 60 mg QAM PO 11/23/16 09:00 12/23/16 08:59 11/23/16 08:59 60 MG Sertraline HCl (Zoloft Tab) 50 mg QAM PO 11/23/16 09:00 12/23/16 08:59 11/23/16 09:00 50 MG Insulin Aspart (novoLOG ASPART) SLIDING SCALE If C... ACHS SC 11/22/16 16:00 12/22/16 15:59 Furosemide 100 mg/ Dextrose 100 ml @ 8 mls/hr [id number] IV 11/23/16 07:45 12/23/16 07:44 11/23/16 09:01 8 MLS/HR Spironolactone (Aldactone Tab) 25 mg QAM PO 11/23/16 09:00 12/23/16 08:59 11/23/16 08:58 25 MG Metoprolol Tartrate (Lopressor Tab) 25 mg BID PO 11/23/16 09:00 12/23/16 08:59 11/23/16 08:59 25 MG Sitagliptin Phosphate (Januvia Tab) 50 mg DAILY PO 11/23/16 10:00 12/23/16 09:59 Future Hold Milrinone Lactate/ Dextrose 82097 mcg/Prmx 100 ml @ 9.91 mls/hr Q10H6M IV 11/23/16 12:00 12/23/16 11:59 Future Hold 11/23/16 22:14 9.91 MLS/HR Metolazone (Zaroxolyn Tab) 5 mg QAM PO 11/24/16 09:00 12/24/16 08:59 Norepinephrine Bitartrate 8 mg/ Dextrose 508 ml @ 0 mls/hr Q0M PRN IV 11/23/16 23:50 12/23/16 23:49 Hydrocortisone Sodium Succinate 100 mg/Syringe 2 ml @ 4 mls/min Q8H IV 11/24/16 08:00 12/24/16 07:59 11/24/16 08:03 4 MLS/MIN Vasopressin 50 units/Sodium Chloride 502.5 ml @ 24 mls/hr [id number] IV 11/24/16 09:00 12/24/16 08:59 11/24/16 08:31 24 MLS/HR Linezolid 600 mg/ Prmx 300 ml @ 300 mls/hr Q12H IV 11/24/16 09:00 12/01/16 08:59 11/24/16 09:05 300 MLS/HR Home Meds and Scripts Medications Dose Route/Sig Max Daily Dose Days Date Category Dose Instructions Potassium Chloride Er (Potassium Chloride Microencaps) 20 Meq Tab 20 Meq PO TID 11/20/16 Reported Nitrostat (Nitroglycerin) 0.4 Mg Tab 0.4 Mg UT UD PRN 11/20/16 Reported every 5 min as needed x3 Lipitor (Atorvastatin Calcium) 80 Mg Tab 80 Mg PO HS 11/20/16 Reported Aspirin 81 (Aspirin) 81 Mg Tab 81 Mg PO QAM 11/20/16 Reported Lopressor (Metoprolol Tartrate) 25 Mg Tab 25 Mg PO BID 30 11/11/16 Rx Lasix (Furosemide) 40 Mg Tab 40 Mg PO TID 30 11/11/16 Rx Januvia (Sitagliptin) 25 Mg Tab 25 Mg PO DAILY 11/09/16 Reported Senna Lax (Senna) 8.6 Mg Tab 8.6 Mg PO QAM 11/03/16 Reported Zoloft (Sertraline HCl) 50 Mg Tab 50 Mg PO QAM 09/16/16 Reported Miralax (Polyethylene Glycol 3350) 1 Pow Pow 17 Gm PO QAM PRN 09/16/16 Reported Zyloprim (Allopurinol) 300 Mg Tab 300 Mg PO QAM 09/16/16 Reported Duoneb (Ipratropium-Albuterol) 3 Ml Nebu 1 Treatment INH Q6 PRN 09/16/16 Reported Imdur Ext Rel (Isosorbide Mononitrate) 60 Mg Ertab 60 Mg PO QAM 09/16/16 Reported Plavix (Clopidogrel Bisulfate) 75 Mg Tab 75 Mg PO QAM 09/16/16 Reported Proscar (Finasteride) 5 Mg Tab 5 Mg PO QAM 09/16/16 Reported Review of Systems unable to obtain d/t clinical condition Physical Exam Date Time Temp Pulse Resp B/P (MAP) Pulse Ox O2 Delivery O2 Flow Rate FiO2 11/24/16 09:17 126 33 120/68 (85) 83 BiPAP 60 11/24/16 09:01 110 33 112/60 (77) 95 BiPAP 60 11/24/16 08:46 114 35 111/72 (85) 93 BiPAP 60 11/24/16 08:32 109 32 93/50 (64) 95 BiPAP 60 11/24/16 08:17 111 33 91/64 (73) 94 BiPAP 60 11/24/16 08:02 111 31 93/61 (72) 96 BiPAP 60 11/24/16 07:46 112 34 93/63 (73) 95 BiPAP 60 11/24/16 07:34 109 95 55 11/24/16 07:32 36.4 110 33 77/52 (60) 95 BiPAP 60 11/24/16 07:17 110 33 94/65 (75) 94 BiPAP 60 11/24/16 07:02 108 33 99/59 (72) 95 BiPAP 60 11/24/16 06:06 110 32 81/53 (62) 94 BiPAP 55 11/24/16 05:26 111 95 55 11/24/16 04:00 96 BiPAP 55 11/24/16 04:00 36.3 105 31 96/51 (66) 96 BiPAP 55 11/24/16 03:16 106 38 84/50 (61) 96 11/24/16 03:01 108 33 79/55 (63) 95 11/24/16 02:46 108 32 84/51 (62) 95 11/24/16 02:31 109 34 84/55 (65) 95 11/24/16 02:16 108 32 83/50 (61) 95 11/24/16 02:01 108 34 81/54 (63) 95 11/24/16 01:46 111 36 76/50 (59) 94 11/24/16 01:31 108 32 77/48 (58) 95 11/24/16 01:18 120 94 55 11/24/16 01:16 107 34 72/48 (56) 94 11/24/16 01:01 106 34 74/52 (59) 93 11/24/16 00:46 108 32 71/52 (58) 93 11/24/16 00:39 105 32 75/44 (54) 93 11/24/16 00:31 107 33 74/44 (54) 92 11/24/16 00:16 109 35 80/46 (57) 94 11/24/16 00:01 115 34 77/47 (57) 93 11/24/16 00:00 92 BiPAP 55 11/23/16 23:46 109 33 66/43 (51) 84 11/23/16 23:46 109 33 66/43 (51) 90 55 11/23/16 23:45 108 35 87 11/23/16 23:40 105 33 89 55 11/23/16 23:36 107 33 68/43 (51) 91 11/23/16 23:35 107 35 89 55 11/23/16 23:31 105 35 60/43 (49) 94 11/23/16 23:30 106 35 93 11/23/16 23:27 105 88 45 11/23/16 23:25 106 23 75/43 (54) 94 11/23/16 23:25 106 23 75/43 (54) 94 11/23/16 23:21 102 36 79 11/23/16 23:17 107 33 87/56 (66) 90 11/23/16 23:16 108 37 90 11/23/16 23:11 106 33 90 11/23/16 23:06 107 32 91 11/23/16 23:02 107 33 90/53 (65) 90 11/23/16 23:01 108 35 91 11/23/16 22:56 110 33 91 11/23/16 22:51 109 34 90 11/23/16 22:47 110 35 106/53 (70) 90 11/23/16 22:46 111 32 91 11/23/16 22:41 113 35 91 11/23/16 22:36 112 34 90 11/23/16 22:32 107 30 109/65 (80) 86 11/23/16 22:31 112 33 86 11/23/16 22:26 110 33 91 11/23/16 22:21 118 32 91 11/23/16 22:16 117 37 87/47 (60) 89 11/23/16 22:16 117 37 87/47 (60) 89 11/23/16 22:11 107 35 87/48 (61) 93 11/23/16 22:01 108 30 80/56 (64) 92 11/23/16 21:01 100 30 88/56 (67) 93 11/23/16 20:16 101 23 76/52 (60) 94 11/23/16 20:02 36.9 96 31 92/53 (66) 94 11/23/16 20:00 BiPAP 45 11/23/16 19:55 97 93 45 11/23/16 17:46 87 25 86/46 (59) 92 BiPAP 45 11/23/16 17:16 87 28 96/52 (67) 89 BiPAP 40 11/23/16 16:48 74 94 30 11/23/16 16:44 36.3 85 24 79/42 (54) 93 BiPAP 40 11/23/16 16:16 83 27 83/44 (57) 92 BiPAP 40 11/23/16 16:02 92 26 89/49 (62) 93 BiPAP 40 11/23/16 16:00 BiPAP 40 11/23/16 15:46 85 27 94/51 (65) BiPAP 60 11/23/16 15:31 85 28 93/56 (68) 97 BiPAP 60 11/23/16 15:16 86 29 96/55 (69) 95 BiPAP 60 11/23/16 15:01 87 34 98/60 (73) 86 BiPAP 60 11/23/16 14:31 79 26 94/54 (67) 92 BiPAP 40 11/23/16 14:01 78 34 109/54 (72) 91 11/23/16 13:47 78 26 97/52 (67) 91 BiPAP 30 11/23/16 13:40 75 25 92/55 (67) 92 BiPAP 30 11/23/16 13:32 77 25 93/52 (66) 91 30 11/23/16 13:25 74 23 71/38 (49) 92 BiPAP 30 11/23/16 13:13 74 27 86/27 (46) 92 BiPAP 30 11/23/16 13:04 76 26 70/37 (48) 93 BiPAP 30 11/23/16 12:58 77 26 93/35 (54) 92 BiPAP 30 11/23/16 12:54 78 27 72/40 (51) 92 BiPAP 30 11/23/16 12:40 75 27 78/40 (53) 92 BiPAP 30 11/23/16 12:00 BiPAP 30 11/23/16 11:32 73 28 86/54 (65) 92 BiPAP 30 11/23/16 11:16 75 29 93/52 (66) 92 BiPAP 30 11/23/16 10:46 77 24 92/51 (65) 91 BiPAP 30 11/23/16 10:31 78 28 86/45 (59) 91 BiPAP 30 11/23/16 10:17 86 28 75/37 (50) 90 BiPAP 30 11/23/16 10:02 83 22 81/51 (61) 92 BiPAP 30 General Appearance: no apparent distress, + obese, + pertinent finding (on bipap, appears comfortable/resting quietly) Eyes: EOMI ENT: hearing grossly normal Neck: supple Respiratory/Chest: + decreased breath sounds (anterior exam on bipap) Cardiovascular: regular rate, rhythm Abdomen: normal bowel sounds, non tender, soft, + distended, + pertinent finding (lujan w/ scant urine) Extremities: + pedal edema (1+) Neurologic/Psych: + depressed affect (tracks, interacts, luu but tired) Skin: no jaundice, warm/dry, no rash, + cyanosis (/early mottling on feet) Diagnostics Last 24 Hours Test 11/23/16 10:03 11/23/16 14:00 11/23/16 14:06 11/23/16 16:34 Bedside Glucose 155 mg/dl 148 mg/dl Creatine Kinase MB Ratio Activated Partial Thromboplast Time 40.8 SECONDS Partial Thromboplastin Ratio 1.6 Creatine Kinase MB 4.8 ng/ml Troponin I 0.273 ng/ml Test 11/23/16 21:57 11/23/16 23:30 11/24/16 01:22 11/24/16 07:33 Bedside Glucose 140 mg/dl 193 mg/dl Activated Partial Thromboplast Time 55.1 SECONDS 52.5 SECONDS Partial Thromboplastin Ratio 2.1 2.0 White Blood Count 18.55 K/uL Red Blood Count 3.07 M/uL Hemoglobin 8.9 g/dL Hematocrit 27.9 % Mean Corpuscular Volume 90.9 fL Mean Corpuscular Hemoglobin 29.0 pg Mean Corpuscular Hemoglobin Concent 31.9 g/dl Platelet Count 425 K/uL Mean Platelet Volume 8.3 fL Neutrophils (%) (Auto) 81.5 % Lymphocytes (%) (Auto) 7.1 % Monocytes (%) (Auto) 10.0 % Eosinophils (%) (Auto) 0.4 % Basophils (%) (Auto) 0.2 % Neutrophils # (Auto) 15.12 K/uL Lymphocytes # (Auto) 1.32 K/uL Monocytes # (Auto) 1.85 K/uL Eosinophils # (Auto) 0.08 K/uL Basophils # (Auto) 0.03 K/uL RDW Standard Deviation 53.7 fL RDW Coefficient of Variation 16.3 % Immature Granulocyte % (Auto) 0.8 % Immature Granulocyte # (Auto) 0.15 K/uL Nucleated RBC Absolute Count (auto) 0.02 K/uL Nucleated Red Blood Cells % 0.1 % Polychromasia 1+ Sodium Level 134 mmol/L Potassium Level 4.2 mmol/L Chloride Level 98 mmol/L Carbon Dioxide Level 23 mmol/L Anion Gap 13.0 mmol/L Blood Urea Nitrogen 67 mg/dl Creatinine 2.70 mg/dl Est Creatinine Clear Calc Drug Dose 22.1 ml/min Estimated GFR () 23.5 Estimated GFR (Non- 20.3 BUN/Creatinine Ratio 24.9 Random Glucose 168 mg/dl Lactic Acid Level 1.9 mmol/L Calcium Level 7.8 mg/dl Magnesium Level 2.5 mg/dl Test 11/24/16 08:40 Activated Partial Thromboplast Time 49.6 SECONDS Partial Thromboplastin Ratio 1.9 Cortisol AM Sample 39.61 mcg/dl Diagnostic Radiology: TTE this admission * Left ventricular systolic function is severely reduced. * Ejection Fraction = 20-25%. * The left ventricle is mildly dilated. * The inferior and posterior chavez are akinetic. * The remaining LV myocardial wall segments are moderately hypokinetic. * The right ventricular systolic function is mildly reduced. * The aortic valve is moderately calcified. * Moderate valvular aortic stenosis. * Moderate aortic regurgitation. * There is moderate mitral regurgitation. * The mitral regurgitant jet is eccentrically directed. * There is moderate tricuspid regurgitation. * The estimated systolic PAP is 57mmHg. CXR this am congestive failure, pulmonary edema, possible PNA Assessment & Plan 85 y/o M w/ ischemic OXYACETYLENE WELDER, second nstemi in as many weeks, w/ oligoanuric 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, low output cardiogenic shock, acute on chronic respiratory failure bipap dependent 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 urine sediment on presentation was contaminated but not suggestive of GN or infection -ALIDA (probably oligoanuric at this point) likely multifactorial in the setting of hypotension/pressors despite maximal abtx/stress dosed steroids, cardiogenic shock; obligate diuretics likely to worsen further -has had as aggressive diuretic dosing as tolerated-- lasix gtt off now d/t worsening hypotension/failure to respond; not a candidate for albumin d/t HF -not a dialysis candidate at this time as I believe his cardiac status/ instability would not tolerate this procedure; pt has clearly repeatedly stated in recent past does not want dialysis; family not at bedside and I did not revisit these wishes w/ pt today as he is not in a condition to discuss currently -would not redose vanco w/o first ensuring level is <20 (likely is by now but renal function has changed significantly) acute on chronic heart failure w/ NSTEMI and respiratory failure -per critical care and cardiology -for medical mgt; worsening Prognosis poor; he has worsened significantly past 18 hours and may be actively dying; team considering transition to comfort measures next 24 - 48 hrs. Appreciate consult; will follow with you. care coordinated w/ Govind Sotelo, Shelly.
[2016-11-24] MEDS ORDERED: ASCORBIC ACID 500 MG/ML 50 ML VIAL IV SCH (14:15)
[2016-11-24 14:21] LABS: PARTIAL THROMBOPLASTIN RATIO 1.5
[2016-11-24] MEDS ORDERED: THIAMINE HCL INJ 200 MG in SODIUM CHLORIDE 0.9% 50ML 50 ML IV ONE (14:30)
[2016-11-24] MEDS: ASCORBIC ACID IV SCH ×2 (16:52→20:46)
[2016-11-24] MEDS: SODIUM CHLORIDE 0.9% IV SCH ×2 (16:52→20:46)
--- NOTE | 2016-11-24 16:58 | Progress Note ---
Internal Med Progress Note Date of Service: Nov 24, 2016. Provider Documentation: SUBJECTIVE: The patient was seen and examined Condition deteriorated Does not want to live any more in this condition Discussed with the Son Has Multiorgan Failure No improvement with current available treatment Detailed discussion with the Son Will likely to go for Comfort care from tomorrow as per patient wish OBJECTIVE: Vital Signs-as noted below Exam: General-Moderate distress at rest On BIPAP Eyes-normal ENT-normal Neck-supple Lungs-Decreased breath sound bilaterally Occasional crackles at the bases Heart-Regular,no murmur Abdomen-Benign,no kris,bowel sound present Extremities-1 + edema bilaterally Neuro-AA Generally weak Lab data as noted below. ASSESSMENT & PLAN: ALIDA Creatinine is increasing Nephrology consulted ACUTE HYPOXIC RESPIRATORY FAILURE SECONDARY TO PULMONARY EDEMA HISTORY OF CHF EF 30-35% Lasix increased to 40 mg IV BID He was on TID with Xyloxylin in the past. FILIBERTO continue the BIPA pressure setting 06/02 per sleep study done 04/08/2016 Appreciate Mechanic Recovery input Cardiology consulted-appreciate input Clinically better on BIPAP Likely to need IV Lasix and may need IV Dobutamine if not any better with Lasix Treatment is not helping SEPSIS SECONDARY TO POSS[facility]ARE [facility] PNEUMONIA R/O UTI Lactic acid elevated but patient has pulmonary edema, will defer IV fluids for now Has been on empiric Vanco, Levaquin, Aztreonam 3 days would use vancomycin, levaquin and aztreonam. FU urine, blood cultures -negative Sputum Culture -pending Continue current antibiotics WCC remain elevated CHF with H/O CAD/CABG Resume a small dose metoprolol of 12.5 mg and escalate to patients home dose of 25 daily Continue atorvastatin 80 mg daily Resume Imdur Appreciate Cardiology input on Small dose of BB,ACEI and Aldactone No improvement of CHF so far ALTERED MENTAL STATUS LIKELY METABOLIC ENCEPHALOPATHY FROM SEPSIS CT head no acute process No more confusion MILD HYPERKALEMIA no ekg changes monitor-normalized MILD TROPONIN ELEVATION likely from sepsis, CKD no ischemia on EKG Partly complicated by Renal Failure Doubt any ACS DM 2 ISS for now CKD 4 Creatinine at baseline Potassium is improved DVT PROPHYLAXIS Heparin CODE STATUS DNR per last admission's notes DISPOSITION pending POOR prognosis Has Multiorgan Failure No improvement with current available treatment Detailed discussion with the Son Will likely to go for Comfort care from tomorrow as per patient wish Vital Signs: Date Time Temp Pulse Resp B/P (MAP) Pulse Ox O2 Delivery O2 Flow Rate FiO2 11/24/16 14:02 100 27 101/60 (74) 97 11/24/16 14:00 100 27 98 11/24/16 13:47 100 26 93/59 (70) 97 11/24/16 13:45 100 25 96 11/24/16 13:32 101 27 94/49 (64) 97 11/24/16 13:30 101 29 96 11/24/16 13:17 101 28 91/59 (70) 96 11/24/16 13:15 101 28 96 11/24/16 13:02 103 28 89/63 (72) 96 11/24/16 13:00 103 28 96 11/24/16 12:47 103 31 87/53 (64) 95 11/24/16 12:45 105 33 95 11/24/16 12:32 103 29 87/62 (70) 95 11/24/16 12:30 103 30 94 11/24/16 12:16 104 29 89/65 (73) 94 11/24/16 12:15 103 30 94 11/24/16 12:08 106 30 92/59 (70) 85 11/24/16 12:01 105 30 110/61 (77) 94 11/24/16 12:00 105 32 94 11/24/16 12:00 94 BiPAP 80 11/24/16 11:17 107 32 104/54 (71) 93 11/24/16 11:01 106 34 97/59 (72) 92 11/24/16 10:47 108 32 97/64 (75) 92 11/24/16 10:31 108 32 97/67 (77) 91 11/24/16 10:21 141 32 101/72 (82) 85 11/24/16 10:17 109 34 91/70 (77) 92 11/24/16 10:15 120 32 103/71 (82) 89 11/24/16 10:02 112 32 118/57 (77) 93 11/24/16 09:47 112 34 101/69 (80) 94 11/24/16 09:32 111 33 109/69 (82) 93 11/24/16 09:21 111 31 116/75 (89) 92 11/24/16 09:17 126 33 120/68 (85) 83 BiPAP 60 11/24/16 09:01 110 33 112/60 (77) 95 BiPAP 60 11/24/16 08:46 114 35 111/72 (85) 93 BiPAP 60 11/24/16 08:32 109 32 93/50 (64) 95 BiPAP 60 11/24/16 08:17 111 33 91/64 (73) 94 BiPAP 60 11/24/16 08:02 111 31 93/61 (72) 96 BiPAP 60 11/24/16 08:00 91 BiPAP 60 11/24/16 07:46 112 34 93/63 (73) 95 BiPAP 60 11/24/16 07:34 109 95 55 11/24/16 07:32 36.4 110 33 77/52 (60) 95 BiPAP 60 11/24/16 07:17 110 33 94/65 (75) 94 BiPAP 60 11/24/16 07:02 108 33 99/59 (72) 95 BiPAP 60 11/24/16 06:06 110 32 81/53 (62) 94 BiPAP 55 11/24/16 05:26 111 95 55 11/24/16 04:00 96 BiPAP 55 11/24/16 04:00 36.3 105 31 96/51 (66) 96 BiPAP 55 11/24/16 03:16 106 38 84/50 (61) 96 11/24/16 03:01 108 33 79/55 (63) 95 11/24/16 02:46 108 32 84/51 (62) 95 11/24/16 02:31 109 34 84/55 (65) 95 11/24/16 02:16 108 32 83/50 (61) 95 11/24/16 02:01 108 34 81/54 (63) 95 11/24/16 01:46 111 36 76/50 (59) 94 11/24/16 01:31 108 32 77/48 (58) 95 11/24/16 01:18 120 94 55 11/24/16 01:16 107 34 72/48 (56) 94 11/24/16 01:01 106 34 74/52 (59) 93 11/24/16 00:46 108 32 71/52 (58) 93 11/24/16 00:39 105 32 75/44 (54) 93 11/24/16 00:31 107 33 74/44 (54) 92 11/24/16 00:16 109 35 80/46 (57) 94 11/24/16 00:01 115 34 77/47 (57) 93 11/24/16 00:00 92 BiPAP 55 11/23/16 23:46 109 33 66/43 (51) 84 11/23/16 23:46 109 33 66/43 (51) 90 55 11/23/16 23:45 108 35 87 11/23/16 23:40 105 33 89 55 11/23/16 23:36 107 33 68/43 (51) 91 11/23/16 23:35 107 35 89 55 11/23/16 23:31 105 35 60/43 (49) 94 11/23/16 23:30 106 35 93 11/23/16 23:27 105 88 45 11/23/16 23:25 106 23 75/43 (54) 94 11/23/16 23:25 106 23 75/43 (54) 94 11/23/16 23:21 102 36 79 11/23/16 23:17 107 33 87/56 (66) 90 11/23/16 23:16 108 37 90 11/23/16 23:11 106 33 90 11/23/16 23:06 107 32 91 11/23/16 23:02 107 33 90/53 (65) 90 11/23/16 23:01 108 35 91 11/23/16 22:56 110 33 91 11/23/16 22:51 109 34 90 11/23/16 22:47 110 35 106/53 (70) 90 11/23/16 22:46 111 32 91 11/23/16 22:41 113 35 91 11/23/16 22:36 112 34 90 11/23/16 22:32 107 30 109/65 (80) 86 11/23/16 22:31 112 33 86 11/23/16 22:26 110 33 91 11/23/16 22:21 118 32 91 11/23/16 22:16 117 37 87/47 (60) 89 11/23/16 22:16 117 37 87/47 (60) 89 11/23/16 22:11 107 35 87/48 (61) 93 11/23/16 22:01 108 30 80/56 (64) 92 11/23/16 21:01 100 30 88/56 (67) 93 11/23/16 20:16 101 23 76/52 (60) 94 11/23/16 20:02 36.9 96 31 92/53 (66) 94 11/23/16 20:00 BiPAP 45 11/23/16 19:55 97 93 45 11/23/16 17:46 87 25 86/46 (59) 92 BiPAP 45 11/23/16 17:16 87 28 96/52 (67) 89 BiPAP 40 Lab Results: Results Past 24 Hours Test 11/23/16 21:57 11/23/16 23:30 11/24/16 01:22 11/24/16 07:33 Range/Units Bedside Glucose 140 193 70-99 mg/dl Activated Partial Thromboplast Time 55.1 52.5 21.0-31.0 SECONDS Partial Thromboplastin Ratio 2.1 2.0 White Blood Count 18.55 4.8-10.8 K/uL Red Blood Count 3.07 4.7-6.1 M/uL Hemoglobin 8.9 14.0-18.0 g/dL Hematocrit 27.9 42-52 % Mean Corpuscular Volume 90.9 80-100 fL Mean Corpuscular Hemoglobin 29.0 25-34 pg Mean Corpuscular Hemoglobin Concent 31.9 32-36 g/dl Platelet Count 425 130-400 K/uL Mean Platelet Volume 8.3 7.4-10.4 fL Neutrophils (%) (Auto) 81.5 % Lymphocytes (%) (Auto) 7.1 % Monocytes (%) (Auto) 10.0 % Eosinophils (%) (Auto) 0.4 % Basophils (%) (Auto) 0.2 % Neutrophils # (Auto) 15.12 1.4-6.5 K/uL Lymphocytes # (Auto) 1.32 1.2-3.4 K/uL Monocytes # (Auto) 1.85 0.11-0.59 K/uL Eosinophils # (Auto) 0.08 0-0.5 K/uL Basophils # (Auto) 0.03 0-0.2 K/uL RDW Standard Deviation 53.7 36.4-46.3 fL RDW Coefficient of Variation 16.3 11.5-14.5 % Immature Granulocyte % (Auto) 0.8 % Immature Granulocyte # (Auto) 0.15 0.00-0.02 K/uL Nucleated RBC Absolute Count (auto) 0.02 0-0 K/uL Nucleated Red Blood Cells % 0.1 % Polychromasia 1+ Sodium Level 134 136-145 mmol/L Potassium Level 4.2 3.5-5.1 mmol/L Chloride Level 98 98-107 mmol/L Carbon Dioxide Level 23 21-32 mmol/L Anion Gap 13.0 3-11 mmol/L Blood Urea Nitrogen 67 7-18 mg/dl Creatinine 2.70 0.60-1.40 mg/dl Est Creatinine Clear Calc Drug Dose 22.1 ml/min Estimated GFR () 23.5 Estimated GFR (Non- 20.3 BUN/Creatinine Ratio 24.9 10-20 Random Glucose 168 70-99 mg/dl Lactic Acid Level 1.9 0.4-2.0 mmol/L Calcium Level 7.8 8.5-10.1 mg/dl Magnesium Level 2.5 1.8-2.4 mg/dl Test 11/24/16 08:40 11/24/16 11:29 11/24/16 14:02 Range/Units Activated Partial Thromboplast Time 49.6 39.2 21.0-31.0 SECONDS Partial Thromboplastin Ratio 1.9 1.5 Procalcitonin 4.40 0-0.5 ng/ml Cortisol AM Sample 39.61 4.30-22.40 mcg/dl Bedside Glucose (other) 241 70-99 mg/dl Microbiology Results 11/24/16 Blood Culture, Received Pending 11/24/16 Blood Culture, Received Pending
[2016-11-24] MEDS ORDERED: FUROSEMIDE INJ 80 MG in SYRINGE 0 ML IV ONE (20:15)
[2016-11-24] MEDS: THIAMINE HCL INJ 200 MG in SODIUM CHLORIDE 0.9% 50ML 50 ML IV SCH (20:44)
[2016-11-24] MEDS: ATORVASTATIN 40 MG TAB PO SCH (20:47)
[2016-11-24] MEDS: DOXYCYCLINE IV 100 MG in DEXTROSE 5% 100ML 100 ML IV SCH (20:47)
[2016-11-24] MEDS: INSULIN GLARGINE SOLOSTAR 100 UNITS/ML 3 ML PEN SC SCH (20:54)
[2016-11-24] MEDS: HEPARIN SOD 5000 UNIT/0.5 ML CARP SQ SCH (20:55)
[2016-11-25] VITALS (115 sets, daily range): BP systolic 68–123; BP diastolic 36–85; PULSE 67–100; TEMP 36.3–36.8; O2SAT 88–97
[2016-11-25] MEDS: INSULIN ASPART 100 UNITS/ML 3 ML PEN SC SCH ×6 (00:25→20:00)
[2016-11-25] MEDS: HYDROCORTISONE IV 100 MG in SYRINGE 0 ML IV SCH ×3 (00:28→16:09)
[2016-11-25] MEDS: SODIUM CHLORIDE 0.9% IV SCH ×4 (02:33→20:01)
[2016-11-25] MEDS: ASCORBIC ACID IV SCH ×4 (02:33→20:01)
[2016-11-25] MEDS: NOREPINEPHRINE BIT INJ 8 MG in DEXTROSE 5% 500ML 500 ML IV PRN (04:15)
[2016-11-25] MEDS: VASOPRESSIN INJ 50 UNITS in SODIUM CHLORIDE 0.9% 500ML 500 ML IV SCH (04:21)
[2016-11-25 05:45] LABS: BASO % 0.1 %; BASO ABS # 0.01 K/uL (0-0.2); HEMATOCRIT 27.2 % (42-52); IG% 1.4 %; LYMPH % 5.4 %; LYMPH ABS # 0.79 K/uL (1.2-3.4); MEAN CORPUSCULAR HEMOGLOBIN 28.4 pg (25-34); MEAN CORPUSCULAR HGB CONC 31.3 g/dl (32-36); MEAN PLATELET VOLUME 8.9 fL (7.4-10.4); MONO % 9.4 %; NEUT % 83.7 %; PLATELET COUNT 344 K/uL (130-400); RED BLOOD COUNT 2.99 M/uL (4.7-6.1); WHITE BLOOD COUNT 14.51 K/uL (4.8-10.8)
[2016-11-25 06:12] LABS: COMPLETE YES
[2016-11-25] MEDS: HEPARIN SOD 5000 UNIT/0.5 ML CARP SQ SCH ×3 (06:16→20:23)
[2016-11-25 06:28] LABS: BUN/CREATININE RATIO 22.7 (10-20); CALCIUM 7.6 mg/dl (8.5-10.1); CREATININE 3.5 mg/dl (0.60-1.40); MAGNESIUM 2.6 mg/dl (1.8-2.4); POTASSIUM 4.9 mmol/L (3.5-5.1)
--- NOTE | 2016-11-25 08:46 | Cardiology Follow-Up ---
Subjective General Date of Service: Nov 25, 2016. Chief Complaint: follow up shortness of breath Pt evaluation today including: conversation w/ patient, physical exam History of Present Illness The patient is a 85 year old male seen in follow-up. Patient remains on BiPAP. He has made no improvement. He still lethargic. He remains on norepinephrine and vasopressin. Beta yan and diuretics have been discontinued due to hypotension and worsening renal function with BUN of 80 creatinine up to 3.5. EKG this morning reveals sinus rhythm at 95 bpm with first-degree AV block, interventricular conduction delay, lateral ST segment depression. Telemetry at present reveals sinus tachycardia [address] depression noted on telemetry. Allergies Coded Allergies: Zolpidem (Verified Allergy, Severe, SOB, MUSCLES "LOCK UP" PER [facility], ) DELIRIUM. Confusion. Insomnia. Insulin Aspart (Verified Adverse Reaction, Intermediate, REDDENED RASH ALL OVER BODY, 11/03/16) Amoxicillin (Verified Adverse Reaction, Unknown, NIGHTMARES, 11/03/16) Social History Smoking Status: Unknown if Ever Smoked Hx Tobacco Use In Past Year?: No Hx Alcohol Use - Type And Amou: No Hx Substance Use - Type And Am: No Problem List Medical Problems: (1) Acute renal failure Status: Acute (2) Altered mental status Status: Acute (3) Elevated troponin Status: Acute (4) Elevated TSH Status: Acute (5) Generalized weakness Status: Acute (6) Hyperkalemia Status: Acute (7) Hypoglycemia Status: Acute (8) Hypoxemia Status: Acute (9) Pulmonary edema Status: Acute (10) Sepsis Status: Acute (11) Swelling of left lower extremity Status: Acute (12) Urinary tract infection Status: Acute Physical Exam Vital Signs Last Vital Signs Documentation Date Time Temp Pulse Resp B/P (MAP) Pulse Ox O2 Delivery O2 Flow Rate FiO2 11/25/16 07:35 96 95 80 11/25/16 04:00 BiPAP 11/25/16 03:32 36.8 23 101/61 (74) 11/22/16 18:00 4.0 Physical Exam Constitutional: Level of Distress: acutely ill, chronically ill Neck: supple Lungs: Auscultation: pertinent finding (bilateral rales Left worse than right ) Cardiovascular: Heart Auscultation: RRR, no murmurs Extremities: pertinent finding (trace BL LE edema ) Neurologic: Gait & Station: pertinent finding (lethargic) Assessment and Plan Assessment and Plan Impression: 1. Acute on chronic systolic heart failure, NSTEMI, low output cardiogenic shock , also septic shock picture with elevated pro-calcitonin level 2. Mild troponin elevation, dynamic significant lateral ST depression noted on EKG on presentation, improved on repeat, similar to tracing performed on 11/03/16 3. 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 3 hospitalizations 06/2016 and twice this month, and LVEF has declined further on each measurements, and is now down to the 20-25% range. Patient had expressed wishes to be DNR on presentation and did not want aggressive procedures. Will likely transition to comfort care. Laboratory Results Last 24 Hours Test 11/24/16 11:29 11/24/16 14:02 11/24/16 16:54 11/24/16 20:42 Bedside Glucose (other) 241 mg/dl Activated Partial Thromboplast Time 39.2 SECONDS Partial Thromboplastin Ratio 1.5 Bedside Glucose 208 mg/dl 195 mg/dl Test 11/25/16 00:21 11/25/16 04:26 11/25/16 05:19 Bedside Glucose 271 mg/dl 210 mg/dl White Blood Count 14.51 K/uL Red Blood Count 2.99 M/uL Hemoglobin 8.5 g/dL Hematocrit 27.2 % Mean Corpuscular Volume 91.0 fL Mean Corpuscular Hemoglobin 28.4 pg Mean Corpuscular Hemoglobin Concent 31.3 g/dl Platelet Count 344 K/uL Mean Platelet Volume 8.9 fL Neutrophils (%) (Auto) 83.7 % Lymphocytes (%) (Auto) 5.4 % Monocytes (%) (Auto) 9.4 % Eosinophils (%) (Auto) 0.0 % Basophils (%) (Auto) 0.1 % Neutrophils # (Auto) 12.14 K/uL Lymphocytes # (Auto) 0.79 K/uL Monocytes # (Auto) 1.37 K/uL Eosinophils # (Auto) 0.00 K/uL Basophils # (Auto) 0.01 K/uL RDW Standard Deviation 54.1 fL RDW Coefficient of Variation 16.2 % Immature Granulocyte % (Auto) 1.4 % Immature Granulocyte # (Auto) 0.20 K/uL Red Blood Cell Morphology Unremarkable Sodium Level 132 mmol/L Potassium Level 4.9 mmol/L Chloride Level 97 mmol/L Carbon Dioxide Level 23 mmol/L Anion Gap 12.0 mmol/L Blood Urea Nitrogen 80 mg/dl Creatinine 3.50 mg/dl Est Creatinine Clear Calc Drug Dose 17.1 ml/min Estimated GFR () 17.2 Estimated GFR (Non- 14.8 BUN/Creatinine Ratio 22.7 Random Glucose 176 mg/dl Calcium Level 7.6 mg/dl Magnesium Level 2.6 mg/dl
[2016-11-25] MEDS: THIAMINE HCL INJ 200 MG in SODIUM CHLORIDE 0.9% 50ML 50 ML IV SCH ×2 (08:47→20:01)
[2016-11-25] MEDS: DOXYCYCLINE IV 100 MG in DEXTROSE 5% 100ML 100 ML IV SCH ×2 (08:47→20:01)
[2016-11-25] MEDS: LINEZOLID / D5W 600 MG in PREMIXED IN D5W 300 ML IV SCH (08:48)
[2016-11-25] MEDS: ALLOPURINOL 300 MG TAB PO SCH (08:48)
[2016-11-25] MEDS: METOLAZONE 5 MG TAB PO SCH (08:49)
[2016-11-25] MEDS: CLOPIDOGREL BISULFATE 75 MG TAB PO SCH (08:49)
[2016-11-25] MEDS: ISOSORBIDE MONONITRATE 60 MG TABCR PO SCH (08:49)
[2016-11-25] MEDS: ASPIRIN 81 MG ECTAB PO SCH (08:49)
[2016-11-25] MEDS: SENNA 8.6 MG TAB PO SCH (08:50)
[2016-11-25] MEDS: FINASTERIDE 5 MG TAB PO SCH (08:50)
[2016-11-25] MEDS: METOPROLOL TARTRATE 25 MG TAB PO SCH ×2 (08:50→20:18)
[2016-11-25] MEDS ORDERED: THIAMINE HCL INJ 200 MG in SODIUM CHLORIDE 0.9% 50ML 50 ML IV SCH (09:00)
[2016-11-25] MEDS: INSULIN GLARGINE SOLOSTAR 100 UNITS/ML 3 ML PEN SC SCH ×2 (09:00→20:20)
[2016-11-25] MEDS ORDERED: NURSING VERBAL MED ORDER ONE (10:45)
[2016-11-25] MEDS ORDERED: CEFEPIME IV 2,000 MG in DEXTROSE 5% 100ML 100 ML IV SCH (11:00)
[2016-11-25] MEDS: PANTOprazole INJ 40 MG in SYRINGE 0 ML IV SCH (11:08)
[2016-11-25] MEDS ORDERED: VANCOMYCIN TROUGH SCH (11:30)
--- NOTE | 2016-11-25 11:33 | Nephrology Progress Note ---
Nephrology Progress Note Date of Service: Nov 25, 2016. Subjective still hypotensive on 2 pressors w/ anuria; no change in end stage ischemic CM; family meeting planned for later today to address goals of care in this setting of MOF Objective Date Time Temp Pulse Resp B/P (MAP) Pulse Ox O2 Delivery O2 Flow Rate FiO2 11/25/16 10:46 89 21 99/60 (73) 95 11/25/16 10:45 90 22 95 11/25/16 10:32 90 22 91/64 (73) 94 11/25/16 10:30 90 22 94 11/25/16 10:17 95 27 110/65 (80) 91 11/25/16 10:15 94 93 100 11/25/16 10:15 92 29 88 11/25/16 10:02 97 28 108/65 (79) 89 11/25/16 10:00 97 27 89 11/25/16 09:47 97 26 98/62 (74) 89 11/25/16 09:45 98 30 89 11/25/16 09:32 100 30 119/74 (89) 91 11/25/16 09:30 99 29 91 11/25/16 09:17 99 30 116/67 (83) 90 11/25/16 09:15 99 30 90 11/25/16 09:04 95 23 72/55 (61) 94 11/25/16 09:02 96 24 96/64 (75) 93 11/25/16 09:00 96 24 91 11/25/16 08:47 97 27 118/65 (82) 92 11/25/16 08:45 96 29 92 11/25/16 08:32 96 26 115/66 (82) 91 11/25/16 08:30 96 28 92 11/25/16 08:30 92 BiPAP 70 11/25/16 08:17 36.8 96 29 105/60 (75) 92 11/25/16 08:15 96 30 92 11/25/16 08:02 97 28 115/74 (88) 91 11/25/16 08:00 96 32 92 11/25/16 07:47 97 31 110/85 (93) 90 11/25/16 07:45 97 30 90 11/25/16 07:35 96 95 80 11/25/16 07:32 97 28 116/68 (84) 95 11/25/16 07:30 96 28 96 11/25/16 07:17 96 30 115/69 (84) 95 11/25/16 07:15 96 30 95 11/25/16 07:02 96 29 113/70 (84) 95 11/25/16 07:00 96 28 95 11/25/16 04:00 BiPAP 80 11/25/16 03:32 36.8 94 23 101/61 (74) 95 11/25/16 03:26 95 96 80 11/25/16 03:17 97 27 98/55 (69) 95 11/25/16 03:02 97 26 121/64 (83) 94 11/25/16 03:00 98 28 94 11/25/16 02:47 99 29 122/67 (85) 97 11/25/16 02:32 97 29 120/66 (84) 96 11/25/16 02:17 97 28 123/68 (86) 96 11/25/16 02:02 97 30 108/74 (85) 96 11/25/16 02:00 36.6 96 26 96 11/25/16 01:46 96 26 115/68 (84) 96 11/25/16 01:32 97 27 105/64 (78) 96 11/25/16 01:17 99 26 122/79 (93) 96 11/25/16 01:02 99 23 122/62 (82) 96 11/25/16 01:00 97 29 95 11/25/16 00:47 97 32 123/64 (83) 96 11/25/16 00:32 98 29 103/79 (87) 96 11/25/16 00:17 98 28 108/72 (84) 11/25/16 00:02 96 28 105/67 (80) 95 11/25/16 00:00 36.7 97 30 95 11/24/16 23:59 BiPAP 80 11/24/16 23:35 96 96 80 11/24/16 22:02 98 30 109/60 (76) 95 11/24/16 20:02 36.6 97 26 111/68 (82) 97 75 11/24/16 20:00 96 96 80 11/24/16 20:00 96 BiPAP 80 11/24/16 16:45 96 98 80 11/24/16 16:01 36.4 97 26 107/60 (76) 98 CPAP 80 11/24/16 16:00 98 BiPAP 80 11/24/16 14:02 100 27 101/60 (74) 97 11/24/16 14:00 100 27 98 11/24/16 13:47 100 26 93/59 (70) 97 11/24/16 13:45 100 25 96 11/24/16 13:32 101 27 94/49 (64) 97 11/24/16 13:30 101 29 96 11/24/16 13:17 101 28 91/59 (70) 96 11/24/16 13:15 101 28 96 11/24/16 13:02 103 28 89/63 (72) 96 11/24/16 13:00 103 28 96 11/24/16 12:47 103 31 87/53 (64) 95 11/24/16 12:45 105 33 95 11/24/16 12:32 103 29 87/62 (70) 95 11/24/16 12:30 103 30 94 11/24/16 12:16 104 29 89/65 (73) 94 11/24/16 12:15 103 30 94 11/24/16 12:08 106 30 92/59 (70) 85 11/24/16 12:01 105 30 110/61 (77) 94 11/24/16 12:00 105 32 94 11/24/16 12:00 94 BiPAP 80 Physical Exam: General Appearance: no apparent distress, + obese, + pertinent finding (on bipap, appears comfortable/resting quietly but difficult to arouse) Eyes: EOMI ENT: hearing grossly normal Neck: supple Respiratory/Chest: + decreased breath sounds (anterior exam on bipap) Cardiovascular: regular rate, rhythm Abdomen: normal bowel sounds, non tender, soft, + distended, + pertinent finding (lujan w/ scant urine) Extremities: + pedal edema (1+) Neurologic/Psych: + depressed affect (lethargic) Skin: no jaundice, warm/dry, no rash Current Inpatient Medications Medications (Trade) Dose Ordered Sig/Vijay Route Start Time Stop Time Status Last Admin Dose Admin Glucose (Glucose 40% Gel) 15-30 GRAMS 15 GRAMS... UD PRN PO 11/21/16 01:00 12/21/16 00:59 Glucose (Glucose Chew Tab) 4-8 Tablets 4 Tabl... UD PRN PO 11/21/16 01:00 12/21/16 00:59 Dextrose (Dextrose 50% 50ML Syringe) 25-50ML OF 50% DW IV FOR... UD PRN IV 11/21/16 01:00 12/21/16 00:59 Glucagon (Glucagon Inj) 1 mg UD PRN SQ 11/21/16 01:00 12/21/16 00:59 Miscellaneous Information (Consult Glycemic Management Pharmacy) 1 ea UD PRN N/A 11/21/16 03:03 12/21/16 03:02 Allopurinol (Zyloprim Tab) 300 mg QAM PO 11/21/16 09:00 12/21/16 08:59 11/25/16 08:48 300 MG Aspirin (Ecotrin Tab) 81 mg QAM PO 11/21/16 09:00 12/21/16 08:59 11/25/16 08:49 81 MG Atorvastatin Calcium (Lipitor Tab) 80 mg HS PO 11/21/16 21:00 12/21/16 20:59 11/23/16 21:51 80 MG Clopidogrel Bisulfate (plAVix TAB) 75 mg QAM PO 11/21/16 09:00 12/21/16 08:59 11/25/16 08:49 75 MG Senna (Senokot Tab) 8.6 mg QAM PO 11/21/16 09:00 12/21/16 08:59 11/25/16 08:50 8.6 MG Acetaminophen (Tylenol Tab) 650 mg Q4H PRN PO 11/21/16 01:15 12/21/16 01:14 Pantoprazole Sodium 40 mg/ Syringe 10 ml @ 5 mls/min DAILY@1100 IV 11/21/16 11:00 12/21/16 10:59 11/24/16 11:33 5 MLS/MIN Finasteride (Proscar Tab) 5 mg QAM PO 11/21/16 09:00 12/21/16 08:59 11/25/16 08:50 5 MG Furosemide 40 mg/ Syringe 4 ml @ 4 mls/min BID17 IV 11/21/16 17:00 12/21/16 16:59 Future Hold 11/22/16 17:05 4 MLS/MIN Cefepime HCl (Consult) 1 ea UD PRN N/A 11/22/16 10:45 12/22/16 10:44 Isosorbide Mononitrate (Imdur Ext Rel Tab) 60 mg QAM PO 11/23/16 09:00 12/23/16 08:59 11/25/16 08:49 60 MG Metoprolol Tartrate (Lopressor Tab) 25 mg BID PO 11/23/16 09:00 12/23/16 08:59 11/25/16 08:50 25 MG Metolazone (Zaroxolyn Tab) 5 mg QAM PO 11/24/16 09:00 12/24/16 08:59 11/25/16 08:49 5 MG Norepinephrine Bitartrate 8 mg/ Dextrose 508 ml @ 0 mls/hr Q0M PRN IV 11/23/16 23:50 12/23/16 23:49 11/25/16 04:15 3.5 MLS/HR Hydrocortisone Sodium Succinate 100 mg/Syringe 2 ml @ 4 mls/min Q8H IV 11/24/16 08:00 12/24/16 07:59 11/25/16 08:48 4 MLS/MIN Vasopressin 50 units/Sodium Chloride 502.5 ml @ 24 mls/hr [id number] IV 11/24/16 09:00 12/24/16 08:59 11/25/16 04:21 24 MLS/HR Linezolid 600 mg/ Prmx 300 ml @ 300 mls/hr Q12H IV 11/24/16 09:00 12/01/16 08:59 11/25/16 08:48 300 MLS/HR Cefepime HCl 2000 mg/Dextrose 112.5 ml @ 200 mls/hr Q24H IV 11/25/16 11:00 11/28/16 23:59 Insulin Glargine (Lantus Solostar Pen) SEE PROTOCOL BID SC 11/24/16 21:00 12/24/16 20:59 11/24/16 20:54 10 UNIT Insulin Aspart (novoLOG ASPART) SLIDING SCALE If C... Q4 SC 11/24/16 16:00 12/24/16 15:59 11/25/16 04:29 2 UNITS Doxycycline Hyclate 100 mg/ Dextrose 110 ml @ 50 mls/hr Q12H IV 11/24/16 21:00 12/01/16 20:59 11/25/16 08:47 50 MLS/HR Ascorbic Acid 1500 mg/Sodium Chloride 103 ml @ 103 mls/hr Q6H IV 11/24/16 14:30 12/24/16 14:29 11/25/16 08:47 103 MLS/HR Thiamine HCl 200 mg/Sodium Chloride 52 ml @ 104 mls/hr Q12 IV 11/24/16 21:00 12/25/16 08:59 11/25/16 08:47 104 MLS/HR Heparin Sodium (Porcine) (Heparin Sq 5000 Unit/0.5ml) 5,000 unit Q8 SQ 11/24/16 22:00 12/24/16 21:59 11/25/16 06:16 5,000 UNIT Last 24 Hours Test 11/24/16 11:29 11/24/16 14:02 11/24/16 16:54 11/24/16 20:42 Bedside Glucose (other) 241 mg/dl Activated Partial Thromboplast Time 39.2 SECONDS Partial Thromboplastin Ratio 1.5 Bedside Glucose 208 mg/dl 195 mg/dl Test 11/25/16 00:21 11/25/16 04:26 11/25/16 05:19 Bedside Glucose 271 mg/dl 210 mg/dl White Blood Count 14.51 K/uL Red Blood Count 2.99 M/uL Hemoglobin 8.5 g/dL Hematocrit 27.2 % Mean Corpuscular Volume 91.0 fL Mean Corpuscular Hemoglobin 28.4 pg Mean Corpuscular Hemoglobin Concent 31.3 g/dl Platelet Count 344 K/uL Mean Platelet Volume 8.9 fL Neutrophils (%) (Auto) 83.7 % Lymphocytes (%) (Auto) 5.4 % Monocytes (%) (Auto) 9.4 % Eosinophils (%) (Auto) 0.0 % Basophils (%) (Auto) 0.1 % Neutrophils # (Auto) 12.14 K/uL Lymphocytes # (Auto) 0.79 K/uL Monocytes # (Auto) 1.37 K/uL Eosinophils # (Auto) 0.00 K/uL Basophils # (Auto) 0.01 K/uL RDW Standard Deviation 54.1 fL RDW Coefficient of Variation 16.2 % Immature Granulocyte % (Auto) 1.4 % Immature Granulocyte # (Auto) 0.20 K/uL Red Blood Cell Morphology Unremarkable Sodium Level 132 mmol/L Potassium Level 4.9 mmol/L Chloride Level 97 mmol/L Carbon Dioxide Level 23 mmol/L Anion Gap 12.0 mmol/L Blood Urea Nitrogen 80 mg/dl Creatinine 3.50 mg/dl Est Creatinine Clear Calc Drug Dose 17.1 ml/min Estimated GFR () 17.2 Estimated GFR (Non- 14.8 BUN/Creatinine Ratio 22.7 Random Glucose 176 mg/dl Calcium Level 7.6 mg/dl Magnesium Level 2.6 mg/dl Date/Time Source Procedure Growth Status 11/25/16 06:00 Urine,Catheterized Urine Culture Pending Received Assessment & Plan 85 y/o M w/ end stage ischemic CATTLE DEHORNER, second nstemi in as many weeks, w/ oligoanuric ALIDA on advanced baseline CKD4, low output cardiogenic shock and suspected/ possible sepsis as well, acute on chronic respiratory failure bipap dependent 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 urine sediment on presentation was contaminated but not suggestive of GN or infection -anuric ALIDA likely multifactorial in the setting of hypotension/pressors despite maximal abtx/stress dosed steroids, cardiogenic shock; obligate diuretics likely to worsen further beyond -has had as aggressive diuretic dosing as tolerated-- lasix gtt off now d/t worsening hypotension/failure to respond; not a candidate for albumin d/t HF -not a dialysis candidate at this time as I believe his cardiac status/ instability would not tolerate this procedure or change the clinical outcome driven by other organ system failure; pt has clearly repeatedly stated in recent past does not want dialysis; family not at bedside and I did not revisit these wishes w/ pt today as he is not in a condition to discuss currently acute on chronic heart failure w/ NSTEMI and respiratory failure -per critical care and cardiology -for medical mgt; worsening Prognosis poor; he has worsened significantly past 36 hours; team considering transition to comfort measures next 24 - 48 hrs. Appreciate consult; will follow with you. care coordinated w/ Shelly Perez.
--- NOTE | 2016-11-25 13:17 | Progress Note ---
Internal Med Progress Note Date of Service: Nov 25, 2016. Provider Documentation: SUBJECTIVE: The patient was seen and examined Condition deteriorated further Does not want to live any more in this condition Discussed with the Son Has Multiorgan Failure No improvement with current available treatment Detailed discussion with the Son Will likely to go for Comfort care from tomorrow as per patient wish No improvement as of 11/25/16 OBJECTIVE: Vital Signs-as noted below Exam: General-Moderate distress at rest On high flow Nasal canula Oxygen Eyes-normal ENT-normal Neck-supple Lungs-Decreased breath sound bilaterally Occasional crackles at the bases Heart-Regular,no murmur Abdomen-Benign,no kris,bowel sound present Extremities-1 + edema bilaterally Neuro-AA Generally weak Lab data as noted below. ASSESSMENT & PLAN: ALIDA Creatinine is increasing Nephrology consulted -appreciate Input Condition is getting worse ACUTE HYPOXIC RESPIRATORY FAILURE SECONDARY TO PULMONARY EDEMA HISTORY OF CHF EF 30-35% Lasix increased to 40 mg IV BID He was on TID with Xyloxylin in the past. FILIBERTO continue the BIPA pressure setting 06/02 per sleep study done 04/08/2016 Appreciate [employer]lech[employer] Jockey input Cardiology consulted-appreciate input Clinically better on BIPAP Likely to need IV Lasix and may need IV Dobutamine if not any better with Lasix Condition is deteriorating SEPSIS SECONDARY TO POSSIBLE [facility]ARE ASS[facility] PNEUMONIA R/O UTI Lactic acid elevated but patient has pulmonary edema, will defer IV fluids for now Has been on empiric Vanco, Levaquin, Aztreonam 3 days would use vancomycin, levaquin and aztreonam. 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 ALTERED MENTAL STATUS LIKELY METABOLIC ENCEPHALOPATHY FROM SEPSIS CT head no acute process No more confusion MILD HYPERKALEMIA no ekg changes monitor-normalized MILD TROPONIN ELEVATION likely from sepsis, CKD no ischemia on EKG Partly complicated by Renal Failure Doubt any ACS DM 2 ISS for now CKD 4 Creatinine at baseline Potassium is improved DVT PROPHYLAXIS Heparin CODE STATUS DNR per last admission's notes DISPOSITION pending resident master Woodard POOR prognosis Has Multiorgan Failure No improvement with current available treatment Detailed discussion with the Son Will likely to go for Comfort care from tomorrow as per patient wish Will discuss with the son for comfort care from now Vital Signs: Date Time Temp Pulse Resp B/P (MAP) Pulse Ox O2 Delivery O2 Flow Rate FiO2 11/25/16 11:42 86 92 80 11/25/16 10:46 89 21 99/60 (73) 95 11/25/16 10:45 90 22 95 11/25/16 10:32 90 22 91/64 (73) 94 11/25/16 10:30 90 22 94 11/25/16 10:17 95 27 110/65 (80) 91 11/25/16 10:15 94 93 100 11/25/16 10:15 92 29 88 11/25/16 10:02 97 28 108/65 (79) 89 11/25/16 10:00 97 27 89 11/25/16 09:47 97 26 98/62 (74) 89 11/25/16 09:45 98 30 89 11/25/16 09:32 100 30 119/74 (89) 91 11/25/16 09:30 99 29 91 11/25/16 09:17 99 30 116/67 (83) 90 11/25/16 09:15 99 30 90 11/25/16 09:04 95 23 72/55 (61) 94 11/25/16 09:02 96 24 96/64 (75) 93 11/25/16 09:00 96 24 91 11/25/16 08:47 97 27 118/65 (82) 92 11/25/16 08:45 96 29 92 11/25/16 08:32 96 26 115/66 (82) 91 11/25/16 08:30 96 28 92 11/25/16 08:30 92 BiPAP 70 11/25/16 08:17 36.8 96 29 105/60 (75) 92 11/25/16 08:15 96 30 92 11/25/16 08:02 97 28 115/74 (88) 91 11/25/16 08:00 96 32 92 11/25/16 07:47 97 31 110/85 (93) 90 11/25/16 07:45 97 30 90 11/25/16 07:35 96 95 80 11/25/16 07:32 97 28 116/68 (84) 95 11/25/16 07:30 96 28 96 11/25/16 07:17 96 30 115/69 (84) 95 11/25/16 07:15 96 30 95 11/25/16 07:02 96 29 113/70 (84) 95 11/25/16 07:00 96 28 95 11/25/16 04:00 BiPAP 80 11/25/16 03:32 36.8 94 23 101/61 (74) 95 11/25/16 03:26 95 96 80 11/25/16 03:17 97 27 98/55 (69) 95 11/25/16 03:02 97 26 121/64 (83) 94 11/25/16 03:00 98 28 94 11/25/16 02:47 99 29 122/67 (85) 97 11/25/16 02:32 97 29 120/66 (84) 96 11/25/16 02:17 97 28 123/68 (86) 96 11/25/16 02:02 97 30 108/74 (85) 96 11/25/16 02:00 36.6 96 26 96 11/25/16 01:46 96 26 115/68 (84) 96 11/25/16 01:32 97 27 105/64 (78) 96 11/25/16 01:17 99 26 122/79 (93) 96 11/25/16 01:02 99 23 122/62 (82) 96 11/25/16 01:00 97 29 95 11/25/16 00:47 97 32 123/64 (83) 96 11/25/16 00:32 98 29 103/79 (87) 96 11/25/16 00:17 98 28 108/72 (84) 11/25/16 00:02 96 28 105/67 (80) 95 11/25/16 00:00 36.7 97 30 95 11/24/16 23:59 BiPAP 80 11/24/16 23:35 96 96 80 11/24/16 22:02 98 30 109/60 (76) 95 11/24/16 20:02 36.6 97 26 111/68 (82) 97 75 11/24/16 20:00 96 96 80 11/24/16 20:00 96 BiPAP 80 11/24/16 16:45 96 98 80 11/24/16 16:01 36.4 97 26 107/60 (76) 98 CPAP 80 11/24/16 16:00 98 BiPAP 80 11/24/16 14:02 100 27 101/60 (74) 97 11/24/16 14:00 100 27 98 11/24/16 13:47 100 26 93/59 (70) 97 11/24/16 13:45 100 25 96 11/24/16 13:32 101 27 94/49 (64) 97 11/24/16 13:30 101 29 96 11/24/16 13:17 101 28 91/59 (70) 96 11/24/16 13:15 101 28 96 Lab Results: Results Past 24 Hours Test 11/24/16 14:02 11/24/16 16:54 11/24/16 20:42 11/25/16 00:21 Range/Units Activated Partial Thromboplast Time 39.2 21.0-31.0 SECONDS Partial Thromboplastin Ratio 1.5 Bedside Glucose 208 195 271 70-99 mg/dl Test 11/25/16 04:26 11/25/16 05:19 Range/Units Bedside Glucose 210 70-99 mg/dl White Blood Count 14.51 4.8-10.8 K/uL Red Blood Count 2.99 4.7-6.1 M/uL Hemoglobin 8.5 14.0-18.0 g/dL Hematocrit 27.2 42-52 % Mean Corpuscular Volume 91.0 80-100 fL Mean Corpuscular Hemoglobin 28.4 25-34 pg Mean Corpuscular Hemoglobin Concent 31.3 32-36 g/dl Platelet Count 344 130-400 K/uL Mean Platelet Volume 8.9 7.4-10.4 fL Neutrophils (%) (Auto) 83.7 % Lymphocytes (%) (Auto) 5.4 % Monocytes (%) (Auto) 9.4 % Eosinophils (%) (Auto) 0.0 % Basophils (%) (Auto) 0.1 % Neutrophils # (Auto) 12.14 1.4-6.5 K/uL Lymphocytes # (Auto) 0.79 1.2-3.4 K/uL Monocytes # (Auto) 1.37 0.11-0.59 K/uL Eosinophils # (Auto) 0.00 0-0.5 K/uL Basophils # (Auto) 0.01 0-0.2 K/uL RDW Standard Deviation 54.1 36.4-46.3 fL RDW Coefficient of Variation 16.2 11.5-14.5 % Immature Granulocyte % (Auto) 1.4 % Immature Granulocyte # (Auto) 0.20 0.00-0.02 K/uL Red Blood Cell Morphology Unremarkable Sodium Level 132 136-145 mmol/L Potassium Level 4.9 3.5-5.1 mmol/L Chloride Level 97 98-107 mmol/L Carbon Dioxide Level 23 21-32 mmol/L Anion Gap 12.0 3-11 mmol/L Blood Urea Nitrogen 80 7-18 mg/dl Creatinine 3.50 0.60-1.40 mg/dl Est Creatinine Clear Calc Drug Dose 17.1 ml/min Estimated GFR () 17.2 Estimated GFR (Non- 14.8 BUN/Creatinine Ratio 22.7 10-20 Random Glucose 176 70-99 mg/dl Calcium Level 7.6 8.5-10.1 mg/dl Magnesium Level 2.6 1.8-2.4 mg/dl Microbiology Results 11/25/16 Urine Culture, Received Pending
--- NOTE | 2016-11-25 13:40 | Pharmacy Progress Note ---
Glycemic Control: Progress Nt Date of Service Nov 25, 2016. Scope Glycemic Pharmacist consulted by Dr Ledbetter on 11/21/16 for glycemic control and to write orders per [facility] inpatient glycemic control protocol. Objective Accuchecks BSG (last 24hrs): Test 11/24/16 16:54 11/24/16 20:42 11/25/16 00:21 11/25/16 04:26 Bedside Glucose 208 mg/dl (70-99) 195 mg/dl (70-99) 271 mg/dl (70-99) 210 mg/dl (70-99) Test 11/25/16 05:19 Random Glucose 176 mg/dl (70-99) Laboratory Data (last 24hrs) Test 11/25/16 05:19 Anion Gap 12.0 mmol/L BUN/Creatinine Ratio 22.7 Blood Urea Nitrogen 80 mg/dl Creatinine 3.50 mg/dl Potassium Level 4.9 mmol/L Sodium Level 132 mmol/L White Blood Count 14.51 K/uL Red Blood Count 2.99 M/uL Hemoglobin 8.5 g/dL Hematocrit 27.2 % Mean Corpuscular Volume 91.0 fL Mean Corpuscular Hemoglobin 28.4 pg Mean Corpuscular Hemoglobin Concent 31.3 g/dl Platelet Count 344 K/uL Mean Platelet Volume 8.9 fL Neutrophils (%) (Auto) 83.7 % Lymphocytes (%) (Auto) 5.4 % Monocytes (%) (Auto) 9.4 % Eosinophils (%) (Auto) 0.0 % Basophils (%) (Auto) 0.1 % Neutrophils # (Auto) 12.14 K/uL Lymphocytes # (Auto) 0.79 K/uL Monocytes # (Auto) 1.37 K/uL Eosinophils # (Auto) 0.00 K/uL Basophils # (Auto) 0.01 K/uL Recent Pertinent Medications Outpatient Anti-diabetic Regimen: * Glucotrol XL * Januvia * A1c = 7.3 % 10/11/16 The patient is currently receiving: * Basal insulin: * Lantus 10 units SQ BID * Bolus insulin: * NovoLog SQ AC+HS - Goal Range: Low 140 mg/dL - High 180 mg/dL - Correction Factor: 20 mg/dL/unit - Carb ratio of 1 unit per 7 grams CHO consumed * Oral Agents: * held on admission Risk Factors for Insulin Resistance: * Steroids: hydrocortisone 100mg IV every 8 hours * Infection: sepsis secondary to pneumonia - current regimen includes linezolid , cefepime, and doxycycline IV * IVF: ascorbic acid CELERY WRAPPER, thiamine CELERY WRAPPER * Pressors: norepinephrine, vasopressin * Diet: Poor PO intake Assessment & Plan ASSESSMENT: * ADA & AACE recommend a goal blood sugar range 140-180 mg/dl for the majority of critically ill & non-critically ill patients. However, more stringent targets may be selected in individual cases. 11/24/16 * Mr. Aparicio's condition is critical and declining. * He has been started on vasopressors, IV steroids, and antibiotics have been altered. * BSGs have began to rise. * Though the standard of care in the ICU is an insulin infusion, I will increase SQ basal/bolus doses of insulin first as Mr. Aparicio is also volume overloaded. * if BSGs do not appropriately respond to SQ insulin, would recommend an IV insulin infusion (goal 140-180mg/dL, moderate stress) 11/25/16 * IV steroids and vasopressors continue, condition continues to decline * BSGs remain elevated - Increase Lantus and tighten NovoLog correction factor * Possibility for comfort measures - will try to avoid IV insulin infusion ( even though it is the drug of choice) as it would require hourly fingersticks PLAN FOR INPATIENT GLYCEMIC CONTROL: * Basal insulin: * Lantus increased to 15 units SQ BID - hold if BSG is below 140mg/dL * Bolus insulin: * Continue NovoLog SQ q4 hours - Correction factor: 18 mg/dL/unit - Carb ratio: 1 unit per 8 g of CHO consumed - Goal: 140-180mg/dL per ADA recommendations * Oral agents: * Hold Januvia 50mg PO daily - renally dosed for CrCl 30-50mL/min * Hold Glucotrol XL as above * Please note that the plan above was derived based on current level of insulin resistance and hospital stress. These recommendations are appropriate for inpatient admission only. Plan of care upon discharge will need to be reassessed to avoid potential outpatient hypo/hyperglycemia. Thank you.
--- NOTE | 2016-11-25 14:49 | Palliative Care Consultation ---
Consultation Date of Consultation: Nov 25, 2016. Requesting Physician: Dr. Jackman Attending Physician: Dr. Bravo; Dr. Jackman Reason for Consultation: Goals of care History of Present Illness Mr. Aparicio is an 85 year old gentleman known to me from previous admissions who presented to the ED from [facility] five days ago with c/o unresponsiveness. History obtained from report. He was picked up by EMS, had oxygen saturation in 80s, and was placed on 15L NRB mask. Patient has an extensive PMH including recent NSTEMI, COPD, CAD, FILIBERTO, CHF CKD stage IV, and others listed below. He has had several admissions this year and has had overall decline in functional status. During this admission, he has been in the ICU requiring several vasopressors, bipap dependent, with worsening kidney function and oliguria, lethargy, and now likely sepsis. The patient's EF is 20- 25%, his oxygen requirements are increasing today now on 100% FiO2 on bipap, and the levophed has been increased today. The patient continues to fail and has an extremely poor prognosis at this point. He has at least three sons, all whom live in different states, who make decisions for this man. Frank Aparicio has been the designated POA, but all sons make decisions together. Nursing has reported several times in the last couple days that patient is saying, "I'm tired," "Let me ," "How long will it take me to ?" Palliative care consulted to establish goals of care and provide support. I am familiar with this patient as I have been consulted now on three admissions. The last time I met with Mr. Aparicio it was on 11/04/16 in room 109. At that time he was awake, alert and oriented; making decisions for himself. He told me many times that his goal was for comfort and to not have aggressive/ heroic measures to keep him alive. He was agreeable to hospice at that time. I had called Frank Aparicio, son/POA, on that day and relayed this information to him, he was agreeable. However, at some point during that admission, plans changed and patient was not discharged on hospice services. Today, I met with the son, Homar Aparicio, and Dr. Jackman (upsetter) outside the room. Dr. Jackman spoke with Homar and explained in great detail about the patient's illnesses and deteriorating condition. Homar is aware that there is no further medical treatment to be offered as all options have been exhausted and patient continues to decompensate. It was made clear that this patient is at the end of life. Options were presented to either continue with medical treatment as it is now with no real "goal" other than to simply prolong life, or to make the patient comfort measures only and relieve suffering. Homar would like time to call his brothers and relay this information so they may make a decision together. I then met with the patient. He is lethargic, almost obtunded , on the bipap mask and is not really able to communicate, so it's difficult to tell what he is able understand. He did open his eyes to name and was moving all extremities. Past Medical/Surgical History Medical History: as above HLD Hyperkalemia Cellulitis Hypoglycemia DM type 2 Heart surgery Tonsillectomy Cardiac stenting Social History Smoking Status: Unknown if Ever Smoked History of Alcohol Use: No Drug Use: none Marital Status: Housing Status: other Occupation Status: retired Review of Systems unable to obtain ROS due to lethargy/obtundation Allergies Coded Allergies: Zolpidem (Verified Allergy, Severe, SOB, MUSCLES "LOCK UP" PER [facility], ) DELIRIUM. Confusion. Insomnia. Insulin Aspart (Verified Adverse Reaction, Intermediate, REDDENED RASH ALL OVER BODY, 11/03/16) Amoxicillin (Verified Adverse Reaction, Unknown, NIGHTMARES, 11/03/16) Medications Current Inpatient Medications Medications (Trade) Dose Ordered Sig/Vijay Route Start Time Stop Time Status Last Admin Dose Admin Glucose (Glucose 40% Gel) 15-30 GRAMS 15 GRAMS... UD PRN PO 11/21/16 01:00 12/21/16 00:59 Glucose (Glucose Chew Tab) 4-8 Tablets 4 Tabl... UD PRN PO 11/21/16 01:00 12/21/16 00:59 Dextrose (Dextrose 50% 50ML Syringe) 25-50ML OF 50% DW IV FOR... UD PRN IV 11/21/16 01:00 12/21/16 00:59 Glucagon (Glucagon Inj) 1 mg UD PRN SQ 11/21/16 01:00 12/21/16 00:59 Miscellaneous Information (Consult Glycemic Management Pharmacy) 1 ea UD PRN N/A 11/21/16 03:03 12/21/16 03:02 Allopurinol (Zyloprim Tab) 300 mg QAM PO 11/21/16 09:00 12/21/16 08:59 11/25/16 08:48 300 MG Aspirin (Ecotrin Tab) 81 mg QAM PO 11/21/16 09:00 12/21/16 08:59 11/25/16 08:49 81 MG Atorvastatin Calcium (Lipitor Tab) 80 mg HS PO 11/21/16 21:00 12/21/16 20:59 11/23/16 21:51 80 MG Clopidogrel Bisulfate (plAVix TAB) 75 mg QAM PO 11/21/16 09:00 12/21/16 08:59 11/25/16 08:49 75 MG Senna (Senokot Tab) 8.6 mg QAM PO 11/21/16 09:00 12/21/16 08:59 11/25/16 08:50 8.6 MG Acetaminophen (Tylenol Tab) 650 mg Q4H PRN PO 11/21/16 01:15 12/21/16 01:14 Pantoprazole Sodium 40 mg/ Syringe 10 ml @ 5 mls/min DAILY@1100 IV 11/21/16 11:00 12/21/16 10:59 11/25/16 11:08 5 MLS/MIN Finasteride (Proscar Tab) 5 mg QAM PO 11/21/16 09:00 12/21/16 08:59 11/25/16 08:50 5 MG Furosemide 40 mg/ Syringe 4 ml @ 4 mls/min BID17 IV 11/21/16 17:00 12/21/16 16:59 Future Hold 11/22/16 17:05 4 MLS/MIN Cefepime HCl (Consult) 1 ea UD PRN N/A 11/22/16 10:45 12/22/16 10:44 Isosorbide Mononitrate (Imdur Ext Rel Tab) 60 mg QAM PO 11/23/16 09:00 12/23/16 08:59 11/25/16 08:49 60 MG Metoprolol Tartrate (Lopressor Tab) 25 mg BID PO 11/23/16 09:00 12/23/16 08:59 11/25/16 08:50 25 MG Metolazone (Zaroxolyn Tab) 5 mg QAM PO 11/24/16 09:00 12/24/16 08:59 11/25/16 08:49 5 MG Norepinephrine Bitartrate 8 mg/ Dextrose 508 ml @ 0 mls/hr Q0M PRN IV 11/23/16 23:50 12/23/16 23:49 11/25/16 04:15 3.5 MLS/HR Hydrocortisone Sodium Succinate 100 mg/Syringe 2 ml @ 4 mls/min Q8H IV 11/24/16 08:00 12/24/16 07:59 11/25/16 08:48 4 MLS/MIN Vasopressin 50 units/Sodium Chloride 502.5 ml @ 24 mls/hr [id number] IV 11/24/16 09:00 12/24/16 08:59 11/25/16 04:21 24 MLS/HR Cefepime HCl 2000 mg/Dextrose 112.5 ml @ 200 mls/hr Q24H IV 11/25/16 11:00 11/28/16 23:59 11/25/16 11:10 200 MLS/HR Insulin Glargine (Lantus Solostar Pen) SEE PROTOCOL BID SC 11/24/16 21:00 12/24/16 20:59 11/24/16 20:54 10 UNIT Insulin Aspart (novoLOG ASPART) SLIDING SCALE If C... Q4 SC 11/24/16 16:00 12/24/16 15:59 11/25/16 13:22 3 UNITS Doxycycline Hyclate 100 mg/ Dextrose 110 ml @ 50 mls/hr Q12H IV 11/24/16 21:00 12/01/16 20:59 11/25/16 08:47 50 MLS/HR Ascorbic Acid 1500 mg/Sodium Chloride 103 ml @ 103 mls/hr Q6H IV 11/24/16 14:30 12/24/16 14:29 11/25/16 13:10 103 MLS/HR Thiamine HCl 200 mg/Sodium Chloride 52 ml @ 104 mls/hr Q12 IV 11/24/16 21:00 12/25/16 08:59 11/25/16 08:47 104 MLS/HR Heparin Sodium (Porcine) (Heparin Sq 5000 Unit/0.5ml) 5,000 unit Q8 SQ 11/24/16 22:00 12/24/16 21:59 11/25/16 13:22 5,000 UNIT Linezolid 600 mg/ Prmx 300 ml @ 200 mls/hr Q12H IV 11/25/16 21:00 12/01/16 08:59 Physical Exam Date Time Temp Pulse Resp B/P (MAP) Pulse Ox O2 Delivery O2 Flow Rate FiO2 11/25/16 13:15 81 23 93 BiPAP 80 11/25/16 13:02 82 23 83/51 (62) 93 11/25/16 13:00 82 23 92 11/25/16 12:47 83 22 81/49 (60) 92 11/25/16 12:45 83 22 92 11/25/16 12:32 84 25 86/48 (61) 90 11/25/16 12:30 86 25 90 11/25/16 12:17 83 24 84/46 (59) 90 BiPAP 80 11/25/16 12:15 83 22 90 11/25/16 12:02 36.5 84 29 99/61 (74) 90 11/25/16 12:00 84 30 90 11/25/16 12:00 93 BiPAP 80 11/25/16 11:47 85 29 97/55 (69) 91 11/25/16 11:45 83 28 91 11/25/16 11:42 86 92 80 11/25/16 11:32 86 22 89/56 (67) 95 11/25/16 11:30 87 25 96 11/25/16 11:17 87 23 84/60 (68) 96 11/25/16 11:15 88 24 96 11/25/16 11:01 89 23 95/60 (72) 96 11/25/16 11:00 89 23 95 11/25/16 10:46 89 21 99/60 (73) 95 11/25/16 10:45 90 22 95 11/25/16 10:32 90 22 91/64 (73) 94 11/25/16 10:30 90 22 94 11/25/16 10:17 95 27 110/65 (80) 91 11/25/16 10:15 94 93 100 6/2/17 10:15 92 29 88 11/25/16 10:02 97 28 108/65 (79) 89 11/25/16 10:00 97 27 89 11/25/16 09:47 97 26 98/62 (74) 89 11/25/16 09:45 98 30 89 11/25/16 09:32 100 30 119/74 (89) 91 11/25/16 09:30 99 29 91 11/25/16 09:17 99 30 116/67 (83) 90 11/25/16 09:15 High Flow Oxygen 80 11/25/16 09:15 99 30 90 11/25/16 09:04 95 23 72/55 (61) 94 11/25/16 09:02 96 24 96/64 (75) 93 11/25/16 09:00 96 24 91 11/25/16 08:47 97 27 118/65 (82) 92 11/25/16 08:45 96 29 92 11/25/16 08:32 96 26 115/66 (82) 91 11/25/16 08:30 96 28 92 11/25/16 08:30 92 BiPAP 70 11/25/16 08:17 36.8 96 29 105/60 (75) 92 11/25/16 08:15 96 30 92 11/25/16 08:02 97 28 115/74 (88) 91 11/25/16 08:00 96 32 92 11/25/16 07:47 97 31 110/85 (93) 90 11/25/16 07:45 97 30 90 11/25/16 07:35 96 95 80 11/25/16 07:32 97 28 116/68 (84) 95 11/25/16 07:30 96 28 96 11/25/16 07:17 96 30 115/69 (84) 95 11/25/16 07:15 96 30 95 11/25/16 07:02 96 29 113/70 (84) 95 11/25/16 07:00 96 28 95 11/25/16 04:00 BiPAP 80 11/25/16 03:32 36.8 94 23 101/61 (74) 95 11/25/16 03:26 95 96 80 11/25/16 03:17 97 27 98/55 (69) 95 11/25/16 03:02 97 26 121/64 (83) 94 11/25/16 03:00 98 28 94 11/25/16 02:47 99 29 122/67 (85) 97 11/25/16 02:32 97 29 120/66 (84) 96 11/25/16 02:17 97 28 123/68 (86) 96 11/25/16 02:02 97 30 108/74 (85) 96 11/25/16 02:00 36.6 96 26 96 11/25/16 01:46 96 26 115/68 (84) 96 11/25/16 01:32 97 27 105/64 (78) 96 11/25/16 01:17 99 26 122/79 (93) 96 11/25/16 01:02 99 23 122/62 (82) 96 11/25/16 01:00 97 29 95 11/25/16 00:47 97 32 123/64 (83) 96 11/25/16 00:32 98 29 103/79 (87) 96 11/25/16 00:17 98 28 108/72 (84) 11/25/16 00:02 96 28 105/67 (80) 95 11/25/16 00:00 36.7 97 30 95 11/24/16 23:59 BiPAP 80 11/24/16 23:35 96 96 80 11/24/16 22:02 98 30 109/60 (76) 95 11/24/16 20:02 36.6 97 26 111/68 (82) 97 75 11/24/16 20:00 96 96 80 11/24/16 20:00 96 BiPAP 80 11/24/16 16:45 96 98 80 11/24/16 16:01 36.4 97 26 107/60 (76) 98 CPAP 80 11/24/16 16:00 98 BiPAP 80 General Appearance: + obese, + pertinent finding (appears uncomfortable with facial grimacing, brow-furrowing, restless movements of extremities) ENT: + pertinent finding (face covered with bipap mask) Neck: supple, no JVD Respiratory: + decreased breath sounds (throughout), + pertinent finding (on 100% FiO2 on bipap mask) Cardiovascular: regular rate, rhythm, + pertinent finding (hypotensive. generalized edema; pedal pulses unpalpable to me with purple tips of 1st toes) Abdomen: normal bowel sounds, + distended (body habitus) Neurologic/Psychiatric: + pertinent finding (lethargic/obtunded) Laboratory Results Last 24 Hours Test 11/24/16 16:54 11/24/16 20:42 11/25/16 00:21 11/25/16 04:26 Bedside Glucose 208 mg/dl 195 mg/dl 271 mg/dl 210 mg/dl Test 11/25/16 05:19 11/25/16 13:10 White Blood Count 14.51 K/uL Red Blood Count 2.99 M/uL Hemoglobin 8.5 g/dL Hematocrit 27.2 % Mean Corpuscular Volume 91.0 fL Mean Corpuscular Hemoglobin 28.4 pg Mean Corpuscular Hemoglobin Concent 31.3 g/dl Platelet Count 344 K/uL Mean Platelet Volume 8.9 fL Neutrophils (%) (Auto) 83.7 % Lymphocytes (%) (Auto) 5.4 % Monocytes (%) (Auto) 9.4 % Eosinophils (%) (Auto) 0.0 % Basophils (%) (Auto) 0.1 % Neutrophils # (Auto) 12.14 K/uL Lymphocytes # (Auto) 0.79 K/uL Monocytes # (Auto) 1.37 K/uL Eosinophils # (Auto) 0.00 K/uL Basophils # (Auto) 0.01 K/uL RDW Standard Deviation 54.1 fL RDW Coefficient of Variation 16.2 % Immature Granulocyte % (Auto) 1.4 % Immature Granulocyte # (Auto) 0.20 K/uL Red Blood Cell Morphology Unremarkable Sodium Level 132 mmol/L Potassium Level 4.9 mmol/L Chloride Level 97 mmol/L Carbon Dioxide Level 23 mmol/L Anion Gap 12.0 mmol/L Blood Urea Nitrogen 80 mg/dl Creatinine 3.50 mg/dl Est Creatinine Clear Calc Drug Dose 17.1 ml/min Estimated GFR () 17.2 Estimated GFR (Non- 14.8 BUN/Creatinine Ratio 22.7 Random Glucose 176 mg/dl Calcium Level 7.6 mg/dl Magnesium Level 2.6 mg/dl Bedside Glucose (other) 237 mg/dl Assessment & Plan Palliative Performance Scale: 10 % Problem list: Altered mental status/lethargy/obtundation Acute on chronic respiratory failure, requiring bipap continuously Sepsis ALIDA on CKI, oliguric Cardiogenic shock requiring continuous infusions of Vasopressin and norepinephrine End-stage ischemic cardiomyopathy, 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 Miah Berger. -Patient is DNR/DNI per previous discussion. -Given the extremely low possibility of survival for this gentleman, I certainly think it would be reasonable to make this patient comfort measures only. The patient has voiced to me several times in the past that he wanted to be comfortable at the end of life. At this point, the medical interventions he is receiving are simply prolonging life and not providing any beneficial outcome as far as relieving pain/suffering or improving quality of life. The patient's son understands there is no end-goal with these medications and bipap mask. -No escalation of care or withdrawal of care at this time until son, Homar, is able to call the other brothers. -I do feel that if patient is made SENIOR PROPERTY MANAGER, he will not survive long at all. He likely will be unable to transfer or to be placed on GIP. -If SENIOR PROPERTY MANAGER is pursued, I would utilize morphine infusion, start at 1-2mg/hr and titrate for comfort. Atropine 1% oph soln 4 drops SL Q1h PRN secretions. Could also use glycopyrrolate 0.2mg IV Q4h PRN secretions as well. Thank you kindly for this consult. Please contact me with any further palliative care needs.
--- NOTE | 2016-11-25 16:33 | Critical Care Progress Note ---
Critical Care Progress Note Date of Service Nov 25, 2016. ICU Day ICU Day Number: [address] Lopez Subjective Patient was admitted on 11/21/16 to ICU with acute respiratory failure secondary to CHF and NSTEMi. He has been dependent on Bipap most of the time. Lasix IV then drip did not result in a negative fluid balance. Milrinone was added to no avail in increasing UO> Patients Cr is worsened. He did not tolerate CHARO inhibitors or spironolactone and overnight became hypotensive. We had to stop milrinone, lasix, and start levophed and at this point he is 0.12 mcg/Kg/min He has progressively worsened. He is oligoanuric with UO <200 ml. He is requiring 100% FiO2 on BIPAP. He did not tolerate high flow nasal cannula. He is fully dependent on vasopressin and levophed. He is on vitamin C thiamine steroids and the pressors. he pulmonary edema is progressing. I had a 30 minute discussion with the son in the presence of palliative care explaining in details how the flight or fight hormones (NE and vasopressin) behave, the acidosis, the renal failure, all the multiorgan failure with maxed out support. The son seems to acknowledge these facts but they do not sink in. We strongly suggested palliative care at this point. He awaits some other family members to join him. Objective General Appearance: no apparent distress Head: normocephalic, atraumatic Eyes: no discharge, sclerae normal, conjunctivae normal ENT: no pharyngeal edema. He has the BIPAP on all the time Neck: normal range of motion, supple Respiratory: crackles bilaterally Cardiovasular: regular rate/rhythm, systolic murmur (grade 1-2/6), other ( sternotomy clean scar in midline) Abdomen: non tender, normal bowel sounds, no rebound, no guarding Genitourinary - Male: external genitalia normal Back: normal inspection, no CVA tenderness Upper Extremities: no edema, other (there is no edema in the LE but he has skin changes of vascular in sufficiency) Lower Extremities: +1 edema, other (skin changes of vascular in sufficicency) Pulses: radial (R) (1+), radial (L), dorsalis pedis (R) (1+), dorsalis pedis (L ) (1+) Neuro: alert, global weakness (motor power is 4/5 but no focal deficits) Current SOFA Score SOFA Score Response (Comments) Value PaO2/FiO2 (mmHg) < 200 3 SaO2 / FIO2 67 - 141 3 Platelets (x10) > 150 0 Bilirubin (mg/dL) 2.0 - 5.9 2 [place] Coma Score 15 0 Level of Hypotension Dopamine > 15 mcq or Epi > 0.1 mcq 4 Creatinine (mg/dL) 1.2 - 1.9 1 Total 13 Previous SOFA Scores 4 Assessment & Plan 85 yo male with known history of coronary artery disease HFeEF, s/p stent and CABG in 1982, FIL[facility], admitted with (1) acute on chronic hypoxic respiratory failure necessitating NIPPV with a BIPAP. likely due to (2) Flash pulmonary edema . It is less likely that he aspirates. Swallow eval is in progress. Pulm edema is likely precipitated by a (3) NSTEMI, the evidence for which is in the rising troponin (4) this all is on a backgroud of CHF specifically HFrFH or acute on chronic systolic heart failure (5) now he has cardiogenic and septic shocks with 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 with oliguria that is non responsive to all therapy. 1- neurologic cont sertraline (if he accepts oral meds) 2- respiratory FIO2 100% BIPAP 12/5 and we may increase EPAP to ease hypoxia pt is DNI per his wishes 3- cardiovascular continue vasopressin and levophed. He is maxed out on both. continue plavix and aspirin IV heparin held given slow drop in his Hb. Technically his Hb needs to be >9 given cardiac status but he is in severe overload and further IV expansion may be very detrimental for his respiratory status. Will observe Hb level closely Daily ECG and if he develops CP cardiology is following metoprolol held due to hypotension continue atorvastatin 80 mg daily if he agrees to PO pills Hold imdur due to hypotension hydrocortison vitamin C thiamine n board for sepsis/septic shock 4- GI diabetic diet if he is off BIPAP. NG feeds carry risk of aspiration he is on BIPAP all the time and non responsive miost of the time. pantoprazole 40 mg daily on board 5- renal UO <200 ml consistently for 2 days ID Added Zyvox to his regimen in lieu of vancomycin, levaquin and cefepime today. If urine culture is clean then we would hold cefepime. Sputum culture showed polymicrobial pattern and grew staph blood cultures no growth today WBC down to 14 but it may be dilutional or more ominously BM suppression due to sepsis / zyvox 7- DVT prophyalxis on SC heparin 8- endocrine insulin sliding scale with phramacy consult Sugar <180 Lines peripheral IVs placed a central line 11/23 left IJ. Has lujan cath but needs it at this point Patient is in multiorgan system failure and is moribound with no reserve for the BIPAP left and no meaningful urine output and complete cardiovascular collapse depedent on pressors. Family aware. total CC time is 35minutes Consults & Procedures Consultants: Tobias Gonzalez and Alvarez from cardiology Procedures: none Consults & Procedures Consultants: Tobias Gonzalez and Alvarez from cardiology Procedures: none Data Medications: Current Inpatient Medications Medications (Trade) Dose Ordered Sig/Vijay Route Start Time Stop Time Status Last Admin Dose Admin Glucose (Glucose 40% Gel) 15-30 GRAMS 15 GRAMS... UD PRN PO 11/21/16 01:00 12/21/16 00:59 Glucose (Glucose Chew Tab) 4-8 Tablets 4 Tabl... UD PRN PO 11/21/16 01:00 12/21/16 00:59 Dextrose (Dextrose 50% 50ML Syringe) 25-50ML OF 50% DW IV FOR... UD PRN IV 11/21/16 01:00 12/21/16 00:59 Glucagon (Glucagon Inj) 1 mg UD PRN SQ 11/21/16 01:00 12/21/16 00:59 Miscellaneous Information (Consult Glycemic Management Pharmacy) 1 ea UD PRN N/A 11/21/16 03:03 12/21/16 03:02 Allopurinol (Zyloprim Tab) 300 mg QAM PO 11/21/16 09:00 12/21/16 08:59 11/25/16 08:48 300 MG Aspirin (Ecotrin Tab) 81 mg QAM PO 11/21/16 09:00 12/21/16 08:59 11/25/16 08:49 81 MG Atorvastatin Calcium (Lipitor Tab) 80 mg HS PO 11/21/16 21:00 12/21/16 20:59 11/23/16 21:51 80 MG Clopidogrel Bisulfate (plAVix TAB) 75 mg QAM PO 11/21/16 09:00 12/21/16 08:59 11/25/16 08:49 75 MG Senna (Senokot Tab) 8.6 mg QAM PO 11/21/16 09:00 12/21/16 08:59 11/25/16 08:50 8.6 MG Acetaminophen (Tylenol Tab) 650 mg Q4H PRN PO 11/21/16 01:15 12/21/16 01:14 Pantoprazole Sodium 40 mg/ Syringe 10 ml @ 5 mls/min DAILY@1100 IV 11/21/16 11:00 12/21/16 10:59 11/25/16 11:08 5 MLS/MIN Finasteride (Proscar Tab) 5 mg QAM PO 11/21/16 09:00 12/21/16 08:59 11/25/16 08:50 5 MG Furosemide 40 mg/ Syringe 4 ml @ 4 mls/min BID17 IV 11/21/16 17:00 12/21/16 16:59 Future Hold 11/22/16 17:05 4 MLS/MIN Cefepime HCl (Consult) 1 ea UD PRN N/A 11/22/16 10:45 12/22/16 10:44 Isosorbide Mononitrate (Imdur Ext Rel Tab) 60 mg QAM PO 11/23/16 09:00 12/23/16 08:59 11/25/16 08:49 60 MG Metoprolol Tartrate (Lopressor Tab) 25 mg BID PO 11/23/16 09:00 12/23/16 08:59 11/25/16 08:50 25 MG Metolazone (Zaroxolyn Tab) 5 mg QAM PO 11/24/16 09:00 12/24/16 08:59 11/25/16 08:49 5 MG Norepinephrine Bitartrate 8 mg/ Dextrose 508 ml @ 0 mls/hr Q0M PRN IV 11/23/16 23:50 12/23/16 23:49 11/25/16 04:15 3.5 MLS/HR Hydrocortisone Sodium Succinate 100 mg/Syringe 2 ml @ 4 mls/min Q8H IV 11/24/16 08:00 12/24/16 07:59 11/25/16 08:48 4 MLS/MIN Vasopressin 50 units/Sodium Chloride 502.5 ml @ 24 mls/hr [id number] IV 11/24/16 09:00 12/24/16 08:59 11/25/16 04:21 24 MLS/HR Cefepime HCl 2000 mg/Dextrose 112.5 ml @ 200 mls/hr Q24H IV 11/25/16 11:00 11/28/16 23:59 11/25/16 11:10 200 MLS/HR Insulin Glargine (Lantus Solostar Pen) SEE PROTOCOL BID SC 11/24/16 21:00 12/24/16 20:59 11/24/16 20:54 10 UNIT Insulin Aspart (novoLOG ASPART) SLIDING SCALE If C... Q4 SC 11/24/16 16:00 12/24/16 15:59 11/25/16 13:22 3 UNITS Doxycycline Hyclate 100 mg/ Dextrose 110 ml @ 50 mls/hr Q12H IV 11/24/16 21:00 12/01/16 20:59 11/25/16 08:47 50 MLS/HR Ascorbic Acid 1500 mg/Sodium Chloride 103 ml @ 103 mls/hr Q6H IV 11/24/16 14:30 12/24/16 14:29 11/25/16 13:10 103 MLS/HR Thiamine HCl 200 mg/Sodium Chloride 52 ml @ 104 mls/hr Q12 IV 11/24/16 21:00 12/25/16 08:59 11/25/16 08:47 104 MLS/HR Heparin Sodium (Porcine) (Heparin Sq 5000 Unit/0.5ml) 5,000 unit Q8 SQ 11/24/16 22:00 12/24/16 21:59 11/25/16 13:22 5,000 UNIT Linezolid 600 mg/ Prmx 300 ml @ 200 mls/hr Q12H IV 11/25/16 21:00 12/01/16 08:59 I & O: 24-Hour Column 11/26/16 08:00 Intake Total 1019 ml Output Total 40 ml Balance 979 ml Vital Signs: Date Time Temp Pulse Resp B/P (MAP) Pulse Ox O2 Delivery O2 Flow Rate FiO2 11/25/16 15:41 93 BiPAP 80 11/25/16 13:15 81 23 93 BiPAP 80 11/25/16 13:02 82 23 83/51 (62) 93 11/25/16 13:00 82 23 92 11/25/16 12:47 83 22 81/49 (60) 92 11/25/16 12:45 83 22 92 11/25/16 12:32 84 25 86/48 (61) 90 11/25/16 12:30 86 25 90 11/25/16 12:17 83 24 84/46 (59) 90 BiPAP 80 11/25/16 12:15 83 22 90 11/25/16 12:02 36.5 84 29 99/61 (74) 90 11/25/16 12:00 84 30 90 11/25/16 12:00 93 BiPAP 80 11/25/16 11:47 85 29 97/55 (69) 91 11/25/16 11:45 83 28 91 11/25/16 11:42 86 92 80 11/25/16 11:32 86 22 89/56 (67) 95 11/25/16 11:30 87 25 96 11/25/16 11:17 87 23 84/60 (68) 96 11/25/16 11:15 88 24 96 11/25/16 11:01 89 23 95/60 (72) 96 11/25/16 11:00 89 23 95 11/25/16 10:46 89 21 99/60 (73) 95 11/25/16 10:45 90 22 95 11/25/16 10:32 90 22 91/64 (73) 94 11/25/16 10:30 90 22 94 11/25/16 10:17 95 27 110/65 (80) 91 11/25/16 10:15 94 93 100 11/25/16 10:15 92 29 88 11/25/16 10:02 97 28 108/65 (79) 89 11/25/16 10:00 97 27 89 11/25/16 09:47 97 26 98/62 (74) 89 11/25/16 09:45 98 30 89 11/25/16 09:32 100 30 119/74 (89) 91 11/25/16 09:30 99 29 91 11/25/16 09:17 99 30 116/67 (83) 90 11/25/16 09:15 High Flow Oxygen 80 11/25/16 09:15 99 30 90 11/25/16 09:04 95 23 72/55 (61) 94 11/25/16 09:02 96 24 96/64 (75) 93 11/25/16 09:00 96 24 91 11/25/16 08:47 97 27 118/65 (82) 92 11/25/16 08:45 96 29 92 11/25/16 08:32 96 26 115/66 (82) 91 11/25/16 08:30 96 28 92 11/25/16 08:30 92 BiPAP 70 11/25/16 08:17 36.8 96 29 105/60 (75) 92 11/25/16 08:15 96 30 92 11/25/16 08:02 97 28 115/74 (88) 91 11/25/16 08:00 96 32 92 11/25/16 07:47 97 31 110/85 (93) 90 11/25/16 07:45 97 30 90 11/25/16 07:35 96 95 80 11/25/16 07:32 97 28 116/68 (84) 95 11/25/16 07:30 96 28 96 11/25/16 07:17 96 30 115/69 (84) 95 11/25/16 07:15 96 30 95 11/25/16 07:02 96 29 113/70 (84) 95 11/25/16 07:00 96 28 95 11/25/16 04:00 BiPAP 80 11/25/16 03:32 36.8 94 23 101/61 (74) 95 11/25/16 03:26 95 96 80 11/25/16 03:17 97 27 98/55 (69) 95 11/25/16 03:02 97 26 121/64 (83) 94 11/25/16 03:00 98 28 94 11/25/16 02:47 99 29 122/67 (85) 97 11/25/16 02:32 97 29 120/66 (84) 96 11/25/16 02:17 97 28 123/68 (86) 96 11/25/16 02:02 97 30 108/74 (85) 96 11/25/16 02:00 36.6 96 26 96 11/25/16 01:46 96 26 115/68 (84) 96 11/25/16 01:32 97 27 105/64 (78) 96 11/25/16 01:17 99 26 122/79 (93) 96 11/25/16 01:02 99 23 122/62 (82) 96 11/25/16 01:00 97 29 95 11/25/16 00:47 97 32 123/64 (83) 96 11/25/16 00:32 98 29 103/79 (87) 96 11/25/16 00:17 98 28 108/72 (84) 11/25/16 00:02 96 28 105/67 (80) 95 11/25/16 00:00 36.7 97 30 95 11/24/16 23:59 BiPAP 80 11/24/16 23:35 96 96 80 11/24/16 22:02 98 30 109/60 (76) 95 11/24/16 20:02 36.6 97 26 111/68 (82) 97 75 11/24/16 20:00 96 96 80 11/24/16 20:00 96 BiPAP 80 11/24/16 16:45 96 98 80 11/24/16 16:01 36.4 97 26 107/60 (76) 98 CPAP 80 11/24/16 16:00 98 BiPAP 80 Laboratory Results: Last 24 Hours Test 11/24/16 16:54 11/24/16 20:42 11/25/16 00:21 11/25/16 04:26 Bedside Glucose 208 mg/dl 195 mg/dl 271 mg/dl 210 mg/dl Test 11/25/16 05:19 11/25/16 13:10 White Blood Count 14.51 K/uL Red Blood Count 2.99 M/uL Hemoglobin 8.5 g/dL Hematocrit 27.2 % Mean Corpuscular Volume 91.0 fL Mean Corpuscular Hemoglobin 28.4 pg Mean Corpuscular Hemoglobin Concent 31.3 g/dl Platelet Count 344 K/uL Mean Platelet Volume 8.9 fL Neutrophils (%) (Auto) 83.7 % Lymphocytes (%) (Auto) 5.4 % Monocytes (%) (Auto) 9.4 % Eosinophils (%) (Auto) 0.0 % Basophils (%) (Auto) 0.1 % Neutrophils # (Auto) 12.14 K/uL Lymphocytes # (Auto) 0.79 K/uL Monocytes # (Auto) 1.37 K/uL Eosinophils # (Auto) 0.00 K/uL Basophils # (Auto) 0.01 K/uL RDW Standard Deviation 54.1 fL RDW Coefficient of Variation 16.2 % Immature Granulocyte % (Auto) 1.4 % Immature Granulocyte # (Auto) 0.20 K/uL Red Blood Cell Morphology Unremarkable Sodium Level 132 mmol/L Potassium Level 4.9 mmol/L Chloride Level 97 mmol/L Carbon Dioxide Level 23 mmol/L Anion Gap 12.0 mmol/L Blood Urea Nitrogen 80 mg/dl Creatinine 3.50 mg/dl Est Creatinine Clear Calc Drug Dose 17.1 ml/min Estimated GFR () 17.2 Estimated GFR (Non- 14.8 BUN/Creatinine Ratio 22.7 Random Glucose 176 mg/dl Calcium Level 7.6 mg/dl Magnesium Level 2.6 mg/dl Bedside Glucose (other) 237 mg/dl
[2016-11-25] MEDS: ATORVASTATIN 40 MG TAB PO SCH (20:16)
[2016-11-25] MEDS ORDERED: LINEZOLID / D5W 600 MG in PREMIXED IN D5W 300 ML IV SCH (21:00)
--- NOTE | 2016-11-26 17:38 | Discharge Summary ---
Discharge Summary Date of Service Nov 25, 2016. Discharge Summary Admission Date: November 21, 2016 at 00:39 Discharge Disposition: Principal Diagnosis: Causes of :CHF,Ischemic CMP,ARF Secondary Diagnoses/Problems: Please see H&P and Hospital Progress note Consultations: Salesperson Household Appliances,Nephrology,Cardiology Admission Information HPI (per Admitting provider): 85 year old male with history of CAD/CABG, CHF Systolic, Asthma, DM, Obstructive Sleep Apnea, CKD 4, Anemia presenting with hypoxia. Resident of [facility] at [facility]. Patient was discharged 10 days ago for NSTEMI and Acute Renal Failure. Today, patient was brought in due to shortness of breath and hypoxia. At the ER, patient was also noted to have pink frothy sputum. He was placed on Bipap and was given IV lasix with IV antibiotics. On my exam, patient seems comfortable, Bipap mask on. He is sleeping, easily rousable but when asked questions, keeps repeating "i don 't remember". ROS cannot be performed. Past Medical/Surgical History Medical Problems: (1) CKD (chronic kidney disease) Status: Chronic (2) COPD (chronic obstructive pulmonary disease) Status: Chronic (3) DM2 (diabetes mellitus, type 2) Status: Chronic (4) Hypertension Status: Chronic Social History Smoking Status: Unknown if Ever Smoked Smokeless Tobacco Use: No Alcohol Use: none Drug Use: none Marital Status: Housing status: other Occupational Status: retired Multi-Drug Resistant Organisms History of MDRO: Yes Type of MDRO: MRSA Allergies Coded Allergies: Zolpidem (Verified Allergy, Severe, SOB, MUSCLES "LOCK UP" PER [facility], ) DELIRIUM. Confusion. Insomnia. Insulin Aspart (Verified Adverse Reaction, Intermediate, REDDENED RASH ALL OVER BODY, 11/03/16) Insulin Glargine (Verified Adverse Reaction, Intermediate, REDDENED RASH ALL OVER BODY, 11/03/16) Amoxicillin (Verified Adverse Reaction, Unknown, NIGHTMARES, 11/03/16) Home Medications Scheduled Allopurinol (Zyloprim), 300 MG PO QAM Aspirin (Aspirin 81), 81 MG PO QAM Atorvastatin (Lipitor), 80 MG PO HS Clopidogrel (Plavix), 75 MG PO QAM Finasteride (Proscar), 5 MG PO QAM Furosemide (Lasix), 40 MG PO TID Isosorbide Mononitrate Ext Rel (Imdur Ext Rel), 60 MG PO QAM Metoprolol Tartrate (Lopressor), 25 MG PO BID Potassium Chloride Microencaps (Potassium Chloride Er), 20 MEQ PO TID Senna (Senna Lax), 8.6 MG PO QAM Sertraline (Zoloft), 50 MG PO QAM Sitagliptin (Januvia), 25 MG PO DAILY Scheduled PRN Ipratropium-Albuterol (Duoneb), 1 TREATMENT INH Q6 PRN for SOB/Wheezing Nitroglycerin (Nitrostat), 0.4 MG UT UD PRN for Chest Pain Polyethylene Glycol 3350 (Miralax), 17 GM PO QAM PRN for Constipation Review of Systems cannot be assessed as patient has altered mental status Physical Exam Vital Signs Date Time Temp Pulse Resp B/P Pulse Ox O2 Delivery O2 Flow Rate FiO2 11/21/16 00:41 38.3 82 20 105/64 100 BiPAP 11/21/16 00:12 87 20 118/70 100 BiPAP 11/20/16 23:05 101 12 124/69 100 BiPAP 11/20/16 22:18 104 11/20/16 22:15 104 95 11/20/16 22:05 BiPAP 11/20/16 22:05 94 BiPAP 100 11/20/16 22:00 38.9 104 34 124/75 95 BiPAP 100 11/20/16 22:00 95 BiPAP 100 General Appearance: WD/WN, no apparent distress Head: normocephalic, atraumatic Eyes: normal inspection, PERRL, EOMI, sclerae normal ENT: normal ENT inspection Neck: supple, no adenopathy, thyroid normal, trachea midline, + pertinent finding (jvd) Respiratory/Chest: + pertinent finding ((+) bilateral rales) Cardiovascular: regular rate, rhythm, no murmur, + pertinent finding ((+) JVD) Abdomen/GI: normal bowel sounds, non tender, soft Back: normal inspection, no CVA tenderness Extremities/Musculoskelatal: + pertinent finding ((+) bilateral lower leg edema ) Neurologic/Psych: no motor/sensory deficits, alert, + pertinent finding (not oriented) Skin: normal color, warm/dry, no rash Lymphatic: no adenopathy Diagnostics Laboratory Results Results Past 24 Hours Test 11/20/16 22:22 11/20/16 22:24 11/20/16 22:27 11/20/16 22:31 Range/Units Venous Blood pH 7.29 7.36-7.41 Venous Blood Partial Pressure CO2 49 38.0-50.0 mmHg Venous Blood Partial Pressure O2 34 mmHg Venous Blood HCO3 23 mmol/L Venous Blood Oxygen Saturation < 60.0 % Venous Blood Base Excess -3.9 mmol/L White Blood Count 18.01 4.8-10.8 K/uL Red Blood Count 3.30 4.7-6.1 M/uL Hemoglobin 9.8 14.0-18.0 g/dL Hematocrit 31.3 42-52 % Mean Corpuscular Volume 94.8 80-100 fL Mean Corpuscular Hemoglobin 29.7 25-34 pg Mean Corpuscular Hemoglobin Concent 31.3 32-36 g/dl Platelet Count 475 130-400 K/uL Mean Platelet Volume 8.8 7.4-10.4 fL Neutrophils (%) (Auto) 84.9 % Lymphocytes (%) (Auto) 6.7 % Monocytes (%) (Auto) 6.5 % Eosinophils (%) (Auto) 0.8 % Basophils (%) (Auto) 0.4 % Neutrophils # (Auto) 15.30 1.4-6.5 K/uL Lymphocytes # (Auto) 1.20 1.2-3.4 K/uL Monocytes # (Auto) 1.17 0.11-0.59 K/uL Eosinophils # (Auto) 0.14 0-0.5 K/uL Basophils # (Auto) 0.07 0-0.2 K/uL RDW Standard Deviation 53.6 36.4-46.3 fL RDW Coefficient of Variation 15.4 11.5-14.5 % Immature Granulocyte % (Auto) 0.7 % Immature Granulocyte # (Auto) 0.13 0.00-0.02 K/uL Nucleated RBC Absolute Count (auto) 0.05 0-0 K/uL Nucleated Red Blood Cells % 0.3 % Red Blood Cell Morphology Unremarkable Sodium Level 135 136-145 mmol/L Potassium Level 5.2 3.5-5.1 mmol/L Chloride Level 99 98-107 mmol/L Carbon Dioxide Level 24 21-32 mmol/L Anion Gap 12.0 19.0 16-25 mmol/L Blood Urea Nitrogen 55 7-18 mg/dl Creatinine 2.10 0.60-1.40 mg/dl Estimated GFR () 31.8 Estimated GFR (Non- 27.5 BUN/Creatinine Ratio 26.4 10-20 Random Glucose 208 70-99 mg/dl Calcium Level 8.4 8.5-10.1 mg/dl Magnesium Level 2.6 1.8-2.4 mg/dl Total Bilirubin 1.3 0.2-1 mg/dl Direct Bilirubin 0.5 0-0.2 mg/dl Aspartate Amino Transf (AST/SGOT) 64 15-37 U/L Alanine Aminotransferase (ALT/SGPT) 50 12-78 U/L Alkaline Phosphatase 175 45-117 U/L Total Creatine Kinase 86 39-308 U/L Creatine Kinase MB 3.8 0.5-3.6 ng/ml Creatine Kinase MB Ratio 4.4 0-3.0 Troponin I 0.071 0-0.045 ng/ml Total Protein 8.2 6.4-8.2 gm/dl Albumin 3.3 3.4-5.0 gm/dl Lipase 148 73-393 U/L Procalcitonin 0.34 0-0.5 ng/ml Thyroid Stimulating Hormone (TSH) 59.300 0.300-4.500 uIu/ml Bedside Troponin I 0.100 0-0.045 ng/ml Bedside Hemoglobin 11.6 14.0-18.0 g/dl Bedside Hematocrit 34 42-52 % Bedside Sodium 132 135-144 mEq/L Bedside Potassium 5.5 3.3-5.0 mEq/L Bedside Chloride 98 101-112 mEq/L Bedside Total CO2 22 24-31 mEq/l Bedside Blood Urea Nitrogen 58 7-18 mg/dl Bedside Creatinine 1.9 0.6-1.3 mg/dl Bedside Glucose (other) 200 70-99 mg/dl Bedside Ionized Calcium (Jaxon) 1.01 1.12-1.32 mmol/l Test 11/20/16 22:36 11/20/16 22:49 11/20/16 23:20 11/21/16 00:45 Range/Units Bedside Lactic Acid Venous 5.13 3.39 0.90-1.70 mmol/L Urine Color YELLOW Urine Appearance CLEAR CLEAR Urine pH 5.0 4.5-7.5 Urine Specific [place] 1.016 1.000-1.030 Urine Protein 1+ NEG Urine Glucose (UA) NEG NEG Urine Ketones NEG NEG Urine Occult Blood TRACE NEG Urine Nitrite NEG NEG Urine Bilirubin NEG NEG Urine Urobilinogen NEG NEG Urine Leukocyte Esterase NEG NEG Urine WBC (Auto) 1-5 0-5 /hpf Urine RBC (Auto) 0-4 0-4 /hpf Urine Hyaline Casts (Auto) 10-30 0-5 /lpf Urine Epithelial Cells (Auto) >30 0-5 /lpf Urine Bacteria (Auto) NEG NEG Urine Renal Epithelial Cells 0-5 0-5 /lpf Urine Crystals AMORPHOUS SEDIMENT NONE PRSENT Urine Pathogenic Casts 0 /lpf Microbiology Results 11/21/16 Blood Culture, Marylou Batch Pending 11/21/16 Blood Culture, Marylou Batch Pending 11/21/16 MRSA DNA Surveillance Screen, Marylou Batch Pending Diagnostic Radiology CHEST ONE VIEW PORTABLE HISTORY: Atypical CHEST PAIN COMPARISON: Chest 11/04/2016. FINDINGS: Poststernotomy changes. The heart is mildly enlarged. Right greater the left interstitial thickening and patchy airspace opacities. Small bilateral pleural effusions. No pneumothorax. IMPRESSION: Cardiomegaly with right greater than left interstitial thickening and patchy airspace opacities. There are small bilateral pleural effusions. Findings are consistent with severe pulmonary edema. Impression Assessment and Plan 85 year old male with history of CAD/CABG, CHF Systolic, Asthma, DM, Obstructive Sleep Apnea, CKD 4, Anemia presenting with hypoxia. ACUTE HYPOXIC RESPIRATORY FAILURE SECONDARY TO PULMONARY EDEMA HISTORY OF CHF EF 30-35% lasix 40mg IV daily continue Bipap monitor ABG Cardiology consulted SEPSIS SECONDARY TO [facility] PNEUMONIA R/O UTI lactic acid elevated but patient has pulmonary edema, will defer IV fluids for now ff up cultures on empiric Vanco, Levaquin, Aztreonam monitor lactic acid ALTERED MENTAL STATUS LIKELY METABOLIC ENCEPHALOPATHY FROM SEPSIS CT head no acute process monitor MILD HYPERKALEMIA no ekg changes monitor MILD TROPONIN ELEVATION likely from sepsis, CKD no ischemia on environmental monitoring specialist CAD/CABG on Aspirin, Plavix, Statin hold Nitrate continue Metoprolol DM 2 ISS for now CKD 4 at baseline crea monitor DVT PROPHYLAXIS Heparin CODE STATUS DNR per last admission's notes DISPOSITION pending [facility] VTE Prophylaxis VTE Risk Assessment Done? Y/N: Yes Risk Level: Moderate Given or contraindicated: Unfractionated heparin SQ <Electronically signed by Sixto Ledbetter MD> Signed: 11/21/16 1108 Physical Exam (per Admitting): General Appearance: WD/WN, no apparent distress Head: normocephalic, atraumatic Eyes: normal inspection, PERRL, EOMI, sclerae normal ENT: normal ENT inspection Neck: supple, no adenopathy, thyroid normal, trachea midline, + pertinent finding (jvd) Respiratory/Chest: + pertinent finding ((+) bilateral rales) Cardiovascular: regular rate, rhythm, no murmur, + pertinent finding ((+) JVD) Abdomen/GI: normal bowel sounds, non tender, soft Back: normal inspection, no CVA tenderness Extremities/Musculoskelatal: + pertinent finding ((+) bilateral lower leg edema) Neurologic/Psych: no motor/sensory deficits, alert, + pertinent finding ( not oriented) Skin: normal color, warm/dry, no rash Lymphatic: no adenopathy Hospital Course ALIDA Creatinine is increasing Nephrology consulted -appreciate Input Condition is getting worse ACUTE HYPOXIC RESPIRATORY FAILURE SECONDARY TO PULMONARY EDEMA HISTORY OF CHF EF 30-35% Lasix increased to 40 mg IV BID He was on TID with Xyloxylin in the past. FILIBERTO continue the BIPA pressure setting 06/02 per sleep study done 04/08/2016 Appreciate Salesperson Household Appliances input Cardiology consulted-appreciate input Clinically better on BIPAP Likely to need IV Lasix and may need IV Dobutamine if not any better with Lasix Condition is deteriorating SEPSIS SECONDARY TO [facility] PNEUMONIA R/O UTI Lactic acid elevated but patient has pulmonary edema, will defer IV fluids for now Has been on empiric Vanco, Levaquin, Aztreonam 3 days would use vancomycin, levaquin and aztreonam. 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 ALTERED MENTAL STATUS LIKELY METABOLIC ENCEPHALOPATHY FROM SEPSIS CT head no acute process No more confusion MILD HYPERKALEMIA no ekg changes monitor-normalized MILD TROPONIN ELEVATION likely from sepsis, CKD no ischemia on EKG Partly complicated by Renal Failure Doubt any ACS DM 2 ISS for now CKD 4 Creatinine at baseline Potassium is improved DVT PROPHYLAXIS Heparin CODE STATUS DNR per last admission's notes DISPOSITION pending resident of [facility] prognosis Has Multiorgan Failure No improvement with current available treatment Detailed discussion with the Son Will likely to go for Comfort care from tomorrow as per patient wish Will discuss with the son for comfort care from now Total time spent on discharge = 20 minutes This includes examination of the patient, discharge planning, medication reconciliation, and communication with other providers. Discharge Instructions Pt
== END 2016-11-25 23:38 | disposition expired | DRG 871 ==
LOC: ENRESERVTM → ENRESERVDT → EDBD 21:53 → C.EDA 21:54 → C.MSICU 11-21 00:39
PROVIDERS: ADMIT Internal Medicine; ATTEND Internal Medicine
DX: A41.9 Sepsis, unspecified organism (principal); J96.01 Acute respiratory failure with hypoxia; G93.41 Metabolic encephalopathy; J18.9 Pneumonia, unspecified organism; N18.4 Chronic kidney disease, stage 4 (severe); I50.20 Unspecified systolic (congestive) heart failure; N17.9 Acute kidney failure, unspecified; R65.20 Severe sepsis without septic shock; E87.5 Hyperkalemia; I25.10 Atherosclerotic heart disease of native coronary artery without angina pectoris; E11.22 Type 2 diabetes mellitus with diabetic chronic kidney disease; Z51.5 Encounter for palliative care; Z66 Do not resuscitate; Z79.02 Long term (current) use of antithrombotics/antiplatelets; Z79.82 Long term (current) use of aspirin; Z79.899 Other long term (current) drug therapy; Z95.1 Presence of aortocoronary bypass graft